=== PATIENT | male | born 1960 | race African-American/Black ===

== ENCOUNTER → 2016-04-20 | Outpatient (CLI) | payer OTHER ==
[~2016-04-20] MED LIST: ALBUAER3 INH; AMLO5 PO; CALC1TAB87 PO; CENTTAB PO; CLON.1 PO; METH125I2 IM; PRED10 PO; WARF-21 PO
--- NOTE | 2016-04-20 15:17 | RADRPT ---
EXAM DATE/TIME: 04/20/2016 14:51 [place] COMPARISON: No previous studies available for comparison. INDICATIONS : History of right leg DVT, incomplete anticoagulation therapy. MEDICAL HISTORY : Hypercholesterolemia. Hypertension. High lipid. Renal failure. SURGICAL HISTORY : Rotator cuff, left. Rotator cuff, right. Bilateral knee surgery. IVC filter. ENCOUNTER: Initial ACUITY: 1 day PAIN SCORE: 0/10 LOCATION: Right leg. TECHNIQUE: Venous ultrasound of the leg was performed from the inguinal ligament to the proximal calf. Real-gumaro e, color Doppler and spectral tracing, compression and augmentation techniques were used. FINDINGS: There is normal compressibility of the deep venous system from the inguinal region to the proximal ca lf. No echogenic clot is seen in the lumen of the common femoral, femoral, popliteal, and posterior tibial veins. There is a normal response of the venous system to proximal and distal augmentation an d respiration. CONCLUSION: Negative exam. No sonographic or Doppler findings of deep venous thrombosis. Fady Chan MD on April 20, 2016 at 15:14 Board Certified Radiologist. This report was verified electronically.
== END ==
LOC: HRAD 14:15
PROVIDERS: ATTEND Family Medicine
DX: I82.401 Acute embolism and thrombosis of unspecified deep veins of right lower extremity (principal)
CPT/HCPCS: 93971

== ENCOUNTER 2016-07-28 14:43 | Emergency (ER) | payer OTHER ==
[~2016-07-28] VITALS: Ht 182.9 cm; Wt 100.0 kg
[~2016-07-28 14:43] MED LIST changes: -METH125I2 IM
[2016-07-28 14:48] VITALS: BP 134/100; PULSE 90; RESP 24; TEMP 97.7; O2SAT 98
--- NOTE | 2016-07-28 14:52 | PD ---
Physical Exam Date Seen by Provider: Jul 28, 2016 Time Seen by Provider: 14:50 Narrative 56 yo male with history of Sarcoidosis comes here for acute SOB. Per patient worst today. Ran out of prednisone. Pain in [place] of 10/09. No injuries. Has PCP. No other medical problems at this time. Vitals sign stable. Patient awaiting bed placement. Data Data Last Documented VS Vital Signs Date Time Temp Pulse Resp B/P Pulse Ox O2 Delivery O2 Flow Rate FiO2 07/28/16 14:48 97.7 90 24 134/100 98 Room Air [facility] Medical Record Reviewed: Yes Supervised Visit with GARO: No Joseph Currie Jul 28, 2016 14:51
--- NOTE | 2016-07-28 16:44 | PD ---
HPI Chief Complaint: Respiratory Symptoms Time Seen by Provider: 16:29 Travel History International Travel<30 days: No Contact w/Intl Traveler<30days: No Traveled to known affect area: No History of Present Illness HPI 56-year-old Afro-[place] male with history of sarcoidosis and chronic lung disease secondary to it, presents to the emergency department with increased shortness of breath and wheezing since running out of his regular dose of [place] 2 days ago. Patient has a history of using prednisone 10 mg daily. He has an appointment with his regular physician on Sunday. Patient denies fever, chills, chest pain, or other constitutional symptoms. Patient has nebulizers at home which did not help that much. He has no nausea, vomiting, or other symptoms. Patient has history of MRSA. He has no known drug allergies. PFSH Past Medical History Hx Anticoagulant Therapy: No Arthritis: Yes (RHUEMATOID) Asthma: No Autoimmune Disease: No Blood Disorders: No Heart Rhythm Problems: No Cancer: No Cardiovascular Problems: Yes High Cholesterol: Yes Chemotherapy: No Chest Pain: Yes Congestive Heart Failure: No COPD: No Cerebrovascular Accident: No Diabetes: No Diminished Hearing: No Endocrine: No Gastrointestinal Disorders: No Glaucoma: No Genitourinary: No Headaches: No Hepatitis: No Hiatal Hernia: No Hypertension: Yes Immune Disorder: Yes Kidney Stones: No Musculoskeletal: No Neurologic: No Psychiatric: No Reproductive: No Respiratory: Yes (SARCOIDOSIS) Integumentary: Yes (SARCOIDOSIS-LUNGS) Migraines: No Myocardial Infarction: No Radiation Therapy: No Renal Failure: Yes (DIAGNOSED 09/09) Seizures: No Shingles: Yes Sickle Cell Disease: No Sleep Apnea: No Thyroid Disease: No Past Surgical History Abdominal Surgery: No AICD: No Arteriovenous Shunt: No Cardiac Surgery: No Ear Surgery: No Endocrine Surgery: No Eye Surgery: No Genitourinary Surgery: No Gynecologic Surgery: No Insulin Pump: No Joint Replacement: No Neurologic Surgery: Yes (LUMBAR) Oral Surgery: No Pacemaker: No Thoracic Surgery: No Other Surgery: No Social History Alcohol Use: No Tobacco Use: Yes (occ) Substance Use: Yes Allergies-Medications (Allergen,Severity, Reaction): Coded Allergies: *MDRO Multi-Drug Resistant Organism (Verified Adverse Reaction, Unknown, 03/21/16) MRSA (leg wound) - 10/2006 MRSA PCR screen positive - 10/2014 Reported Meds & Prescriptions Reported Meds & Active Scripts Active Prednisone 10 Mg Tab 10 Mg PO DAILY Proair Hfa 8.5 GM Inh (Albuterol Sulfate) 90 Mcg/Act Aer 2 Puff INH Q4-6H PRN 108 mcg/actuation Catapres (Clonidine) 0.1 Mg Tab 0.1 Mg PO DAILY Prednisone 10 Mg Tab 10 Mg PO DAILY Norvasc (Amlodipine Besylate) 5 Mg Tab 5 Mg PO BID Reported Warfarin 7.5 Mg Tab 7.5 Mg PO DAILY Calcium 600 with Vitamin D (Calcium Carbonate-Cholecalciferol) 600-400 mg-Unit Tab 1 Tab PO DAILY Centrum Silver (Multiple Vitamins W/ Minerals) 1 Tab 1 Tab PO DAILY Review of Systems Except as stated in HPI: all other systems reviewed are Neg General / Constitutional: No: Fever Eyes: No: Visual changes HENT: No: Headaches Cardiovascular: No: Chest Pain or Discomfort Respiratory: Positive: Cough, Shortness of Breath, Wheezing Gastrointestinal: No: Abdominal Pain Genitourinary: No: Dysuria Musculoskeletal: No: Pain Skin: No Rash Neurologic: No: Weakness Psychiatric: No: Depression Endocrine: No: Polydipsia Hematologic/Lymphatic: No: Easy Bruising Physical Exam Narrative GENERAL: Patient appears in mild distress. SKIN: Warm and dry. Normal color. Mildly decreased turgor. HEAD: Atraumatic. Normocephalic. EYES: Pupils equal and round. No scleral icterus. No injection or drainage. ENT: No nasal bleeding or discharge. Mucous membranes pink and moist. Pharynx is clear. Airway is clear. NECK: Trachea midline. No JVD. Supple and nontender. CARDIOVASCULAR: Regular rate and rhythm. RESPIRATORY: No accessory muscle use. Mild diffuse wheezes throughout to auscultation. No rhonchi or rales. Breath sounds equal bilaterally. GASTROINTESTINAL: Abdomen soft, non-tender, nondistended. Hepatic and splenic margins not palpable. MUSCULOSKELETAL: Extremities without clubbing, cyanosis, or edema. No obvious deformities. NEUROLOGICAL: Awake and alert. No obvious cranial nerve deficits. Motor grossly within normal limits. Five out of 5 muscle strength in the arms and legs. Normal speech. PSYCHIATRIC: Appropriate mood and affect; insight and judgment normal. Data Data Last Documented VS Vital Signs Date Time Temp Pulse Resp B/P Pulse Ox O2 Delivery O2 Flow Rate FiO2 07/28/16 14:48 97.7 90 24 134/100 98 Room Air Orders Dexamethasone Inj (Decadron Inj) (07/28/16 16:45) [facility] Medical Decision Making Medical Screen Exam Complete: Yes Emergency Medical Condition: Yes Medical Record Reviewed: Yes Differential Diagnosis Sarcoidosis. Wheezing. COPD with acute flare. Education refill. Narrative Course Patient is medically stable. Patient is discussed with Dr. George. Full medical workup is not felt warranted based on the patient's history and physical. Diagnosis Primary Impression: SARCOIDOSIS OF LUNG Additional Impression: Chronic obstructive airway disease Qualified Code: J41.0 - Simple chronic bronchitis Referrals: Leisa Davenport MD Patient Instructions: General Instructions Additional Instructions: Patient is given Decadron 10 mg IM. Patient is given a prescription for prednisone 10 mg daily for the next 10 days. Patient is to follow-up with his primary care physician on Sunday as planned. Patient is to continue his other meds as previously prescribed. Patient can return to emergency Department with worsening symptoms if necessary. Med/Other Pt SpecificInfo: Prescription(s) given Scripts Prednisone 10 Mg Tab10 Mg PO DAILY #10 TAB Ref 0 Prov:Colby George MD 07/28/16 Disposition: 01 DISCHARGE HOME Condition: Stable Ruel Jordan Jul 28, 2016 16:44
[2016-07-28] MEDS ORDERED: DEXAMETHASONE SOD PHOS 20 MG/5 ML VIAL IM ONE (16:45)
[2016-07-28] MEDS ORDERED: PRED10 PO (16:48)
[2016-07-28 16:53] VITALS: BP 140/90; PULSE 85; RESP 16; O2SAT 95
[2016-08-08] MEDS ORDERED: CLON.1 PO (15:02)
[2016-08-08] MEDS ORDERED: ALBUAER3 INH (15:02)
[2016-08-08] MEDS ORDERED: AMLO5 PO (15:02)
[2016-08-08] MEDS ORDERED: PRED10 PO (15:02)
[2016-08-08] MEDS ORDERED: METH125I2 IM (15:07)
== END 2016-07-28 17:24 | disposition home or self-care (01) ==
LOC: NEPE 14:43
DX: D86.0 Sarcoidosis of lung (principal); J44.9 Chronic obstructive pulmonary disease, unspecified; Z72.0 Tobacco use
CPT/HCPCS: 96372; 99284; J1100

== ENCOUNTER → 2016-07-31 | Outpatient (CLI) | payer OTHER ==
[~2016-07-31] MED LIST changes: +METH125I2 IM
[2016-07-31 12:40] LABS: AUTOMATED NEUTROPHIL # 4.2 TH/MM3 (1.8-7.7); BASOPHIL % 0.7 % (0.0-2.0); EOSINOPHIL # 0.3 TH/MM3 (0-0.4); HEMATOCRIT 31.8 % (39.0-51.0); HEMO FLAGS DIFF FINAL; LYMPH % 16.7 % (9.0-44.0); LYMPHOCYTE # 1.1 TH/MM3 (1.0-4.8); MEAN CORPUSCULAR HEMOGLOBIN 29.5 PG (27.0-34.0); MEAN CORPUSCULAR HGB CONC 33.9 % (32.0-36.0); MONO % 13.5 % (0.0-8.0); NEUT % 65.1 % (16.0-70.0); PLATELET COUNT 176 TH/MM3 (150-450); RED BLOOD COUNT 3.66 MIL/MM3 (4.50-5.90); RED CELL DISTRIBUTION WIDTH 15.5 % (11.6-17.2); WHITE BLOOD COUNT 6.5 TH/MM3 (4.0-11.0)
[2016-07-31 13:11] LABS: ALT (GPT) 48 U/L (12-78); ANION GAP 13 MEQ/L (5-15); AST (GOT) 125 U/L (15-37); BLOOD UREA NITROGEN 65 MG/DL (7-18); CHLORIDE 102 MEQ/L (98-107); GLOMERULAR FILTRATION RATE 7 ML/MIN (>89); GLUCOSE,FASTING 78 MG/DL (74-99); POTASSIUM 3.8 MEQ/L (3.5-5.1); SODIUM (NA) 135 MEQ/L (136-145)
[2016-07-31 13:21] LABS: ALKALINE PHOSPHATASE 122 U/L (45-117); HDL CHOLESTEROL 25.9 MG/DL (40.0-60.0); LDL CHOLESTEROL 182 MG/DL (0-99); TOTAL BILIRUBIN ADULT 1.1 MG/DL (0.2-1.0)
[2016-07-31 13:56] LABS: HEMOGLOBIN A1a 0.8 %; HEMOGLOBIN A1b 1.3 %; HEMOGLOBIN Ao 87.8 %; HEMOGLOBIN LA1C 1.9 %; HEMOGLOBIN P3 4.7 %
== END ==
LOC: CLAB 12:11
PROVIDERS: ATTEND Family Medicine
DX: F32.9 Major depressive disorder, single episode, unspecified (principal); M54.9 Dorsalgia, unspecified; I82.409 Acute embolism and thrombosis of unspecified deep veins of unspecified lower extremity; J98.4 Other disorders of lung; D86.9 Sarcoidosis, unspecified; Z91.19 Patient's noncompliance with other medical treatment and regimen; Z59.8 Other problems related to housing and economic circumstances
CPT/HCPCS: 36415; 80053; 80061; 83036; 84443; 85025

== ENCOUNTER 2016-11-05 11:46 | Emergency (ER) | payer OTHER ==
[~2016-11-05] VITALS: Ht 182.9 cm; Wt 100.0 kg
[~2016-11-05 11:46] MED LIST changes: +CENTCHW4; -CENTTAB PO; -METH125I2 IM; -WARF-21 PO
[2016-11-05 11:49] VITALS: BP 143/84; PULSE 78; RESP 15; TEMP 98.6; O2SAT 98
--- NOTE | 2016-11-05 12:37 | PD ---
HPI . was told to come to ED days ago by Dr. Davenport Chief Complaint: Abnormal Results Time Seen by Provider: 12:37 Travel History International Travel<30 days: No Contact w/Intl Traveler<30days: No Traveled to known affect area: No History of Present Illness HPI 56-year-old male with history of sarcoidosis, COPD, hyperlipidemia, chronic kidney disease and polysubstance abuse being followed at the [facility] by Dr. Davenport here after he was told by Dr. Davenport several days ago the he needs come to the emergency department for dialysis. Apparently patient is extremely noncompliant. He's had renal failure for quite some time. His last outpatient BUN and creatinine were noted to be 65/8.99. At that point patient was told to come to the emergency department, but never did. 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 During his last office visit, Dr. Davenport "scared him to ", which is why he is here for evaluation. He is accompanied by his significant other. He admits to cocaine usage. He tells me he feels good. PFSH Past Medical History Hx Anticoagulant Therapy: No Arthritis: Yes (RHUEMATOID) Asthma: No Autoimmune Disease: No Blood Disorders: No Heart Rhythm Problems: No Cancer: No Cardiovascular Problems: Yes High Cholesterol: Yes Chemotherapy: No Chest Pain: Yes Congestive Heart Failure: No COPD: No Cerebrovascular Accident: No Diabetes: No Diminished Hearing: No Endocrine: No Gastrointestinal Disorders: No Glaucoma: No Genitourinary: No Headaches: No Hepatitis: No Hiatal Hernia: No Hypertension: Yes Immune Disorder: Yes Kidney Stones: No Musculoskeletal: No Neurologic: No Psychiatric: No Reproductive: No Respiratory: Yes (SARCOIDOSIS) Integumentary: Yes (SARCOIDOSIS-LUNGS) Migraines: No Myocardial Infarction: No Radiation Therapy: No Renal Failure: Yes (DIAGNOSED 09/09) Seizures: No Shingles: Yes Sickle Cell Disease: No Sleep Apnea: No Thyroid Disease: No Past Surgical History Abdominal Surgery: No AICD: No Arteriovenous Shunt: No Cardiac Surgery: No Ear Surgery: No Endocrine Surgery: No Eye Surgery: No Genitourinary Surgery: No Gynecologic Surgery: No Insulin Pump: No Joint Replacement: No Neurologic Surgery: Yes (LUMBAR) Oral Surgery: No Pacemaker: No Thoracic Surgery: No Other Surgery: No Social History Alcohol Use: No Tobacco Use: No Substance Use: No Allergies-Medications (Allergen,Severity, Reaction): Coded Allergies: *MDRO Multi-Drug Resistant Organism (Verified Adverse Reaction, Unknown, ) MRSA (leg wound) - 10/2006 MRSA PCR screen positive - 10/2014 Reported Meds & Prescriptions Reported Meds & Active Scripts Active Proair Hfa 8.5 GM Inh (Albuterol Sulfate) 90 Mcg/Act Aer 2 Puff INH Q4-6H PRN 108 mcg/actuation Catapres (Clonidine) 0.1 Mg Tab 0.1 Mg PO DAILY Reported Centrum (Multiple Vitamins W/ Minerals) 1 Chew 1 Tab .ROUTE DAILY Calcium 600 with Vitamin D (Calcium Carbonate-Cholecalciferol) 600-400 mg-Unit Tab 1 Tab PO DAILY Review of Systems General / Constitutional: No: Fever Eyes: No: Visual changes HENT: No: Headaches Cardiovascular: No: Chest Pain or Discomfort Respiratory: No: Shortness of Breath Gastrointestinal: No: Abdominal Pain Genitourinary: No: Dysuria Musculoskeletal: No: Pain Skin: No Rash Neurologic: No: Weakness Psychiatric: No: Depression Endocrine: No: Polydipsia Hematologic/Lymphatic: No: Easy Bruising Physical Exam Narrative GENERAL: AAO x 3, no acute distress, Well-nourished, well-developed patient. SKIN: Warm and dry. dry scaling skin without open wounds or excoriations HEAD: Normocephalic and atraumatic. EYES: No scleral icterus. No injection or drainage. EOM intact, PERRLA ENT: No nasal drainage noted. Mucous membranes pink. Airway patent. NECK: Supple, trachea midline. No JVD. CARDIOVASCULAR: Regular rate and rhythm without murmurs, gallops, or rubs. RESPIRATORY: Breath sounds equal bilaterally. No accessory muscle use. No rhonchi or rales. GASTROINTESTINAL: Abdomen soft, non-tender, nondistended. no rebound or guarding EXTREMITIES: No cyanosis or edema. BACK: No obvious deformity. No CVA tenderness. NEURO: CN II-12 intact, claims assistant strength normal b/l, UE and LE 5/5, no focal deficits PSYCH: AAO x 3, normal affect. Data Data Last Documented VS Vital Signs Date Time Temp Pulse Resp B/P Pulse Ox O2 Delivery O2 Flow Rate FiO2 11/05/16 12:44 18 91 11/05/16 11:49 98.6 78 143/84 Orders Complete Blood Count With Diff (11/05/16 11:55) Basic Metabolic Panel (Bmp) (11/05/16 11:55) Prothrombin Time / Inr (Pt) (11/05/16 11:55) Electrocardiogram (11/05/16 ) Isolation (11/05/16 12:42) Labs Laboratory Tests Test 11/05/16 11/05/16 12:20 13:55 Prothrombin Time 10.8 SEC Prothromb Time International 1.0 RATIO Ratio Sodium Level 143 MEQ/L Potassium Level 4.4 MEQ/L Chloride Level 111 MEQ/L Carbon Dioxide Level 22.3 MEQ/L Anion Gap 10 MEQ/L Blood Urea Nitrogen 40 MG/DL Creatinine 2.57 MG/DL Estimat Glomerular Filtration 32 ML/MIN Rate Random Glucose 104 MG/DL Calcium Level 8.1 MG/DL White Blood Count 4.4 TH/MM3 Red Blood Count 4.01 MIL/MM3 Hemoglobin 11.8 GM/DL Hematocrit 36.4 % Mean Corpuscular Volume 90.9 FL Mean Corpuscular Hemoglobin 29.5 PG Mean Corpuscular Hemoglobin 32.4 % Concent Red Cell Distribution Width 16.0 % Platelet Count 124 TH/MM3 Mean Platelet Volume 7.8 FL Neutrophils (%) (Auto) 75.0 % Lymphocytes (%) (Auto) 11.1 % Monocytes (%) (Auto) 8.0 % Eosinophils (%) (Auto) 4.7 % Basophils (%) (Auto) 1.2 % Neutrophils # (Auto) 3.3 TH/MM3 Lymphocytes # (Auto) 0.5 TH/MM3 Monocytes # (Auto) 0.4 TH/MM3 Eosinophils # (Auto) 0.2 TH/MM3 Basophils # (Auto) 0.1 TH/MM3 CBC Comment DIFF FINAL Differential Comment MDM Medical Decision Making Medical Screen Exam Complete: Yes Emergency Medical Condition: Yes Medical Record Reviewed: Yes Differential Diagnosis CKD, cocaine abuse, noncompliance, Narrative Course 56 yr old male here per orders from his PCP due to possible renal failure. Exam is unremarkable except for dry skin. Labs ordered. Laboratory Tests Test 11/05/16 11/05/16 12:20 13:55 Prothrombin Time 10.8 SEC Prothromb Time International 1.0 RATIO Ratio Sodium Level 143 MEQ/L Potassium Level 4.4 MEQ/L Chloride Level 111 MEQ/L Carbon Dioxide Level 22.3 MEQ/L Anion Gap 10 MEQ/L Blood Urea Nitrogen 40 MG/DL Creatinine 2.57 MG/DL Estimat Glomerular Filtration 32 ML/MIN Rate Random Glucose 104 MG/DL Calcium Level 8.1 MG/DL White Blood Count 4.4 TH/MM3 Red Blood Count 4.01 MIL/MM3 Hemoglobin 11.8 GM/DL Hematocrit 36.4 % Mean Corpuscular Volume 90.9 FL Mean Corpuscular Hemoglobin 29.5 PG Mean Corpuscular Hemoglobin 32.4 % Concent Red Cell Distribution Width 16.0 % Platelet Count 124 TH/MM3 Mean Platelet Volume 7.8 FL Neutrophils (%) (Auto) 75.0 % Lymphocytes (%) (Auto) 11.1 % Monocytes (%) (Auto) 8.0 % Eosinophils (%) (Auto) 4.7 % Basophils (%) (Auto) 1.2 % Neutrophils # (Auto) 3.3 TH/MM3 Lymphocytes # (Auto) 0.5 TH/MM3 Monocytes # (Auto) 0.4 TH/MM3 Eosinophils # (Auto) 0.2 TH/MM3 Basophils # (Auto) 0.1 TH/MM3 CBC Comment DIFF FINAL Differential Comment Case discussed with Dr. arias. Patient appears to have chronic kidney disease. He does not appear to be in acute on chronic kidney failure. I've recommended that he continue follow-up with his primary care provider. I instructed him to call next week for an appointment. Patient verbalized understanding of instructions, questions were answered, and thanked me for their care. I advised them if their condition worsens, please return to the nearest emergency room for further care. Diagnosis Primary Impression: CKD (chronic kidney disease) stage 3, GFR 30-59 ml/min Additional Instructions: Please follow up with Dr. Davenport in the community clinic. Continue your regular medicines as prescribed by Dr. Davenport Med/Other Pt SpecificInfo: No Change to Meds Disposition: 01 DISCHARGE HOME Condition: Stable Jerilyn Lopez Nov 05, 2016 12:37
[2016-11-05 12:52] LABS: PROTHROMBIN TIME - PATIENT 10.8 SEC (9.8-11.6)
[2016-11-05 13:25] LABS: BICARBONATE 22.3 MEQ/L (21.0-32.0); POTASSIUM 4.4 MEQ/L (3.5-5.1)
[2016-11-05 14:13] LABS: AUTOMATED NEUTROPHIL # 3.3 TH/MM3 (1.8-7.7); BASOPHIL # 0.1 TH/MM3 (0-0.2); BASOPHIL % 1.2 % (0.0-2.0); EOSINOPHIL # 0.2 TH/MM3 (0-0.4); EOSINOPHIL % 4.7 % (0.0-4.0); HEMATOCRIT 36.4 % (39.0-51.0); HEMO FLAGS DIFF FINAL; LYMPH % 11.1 % (9.0-44.0); LYMPHOCYTE # 0.5 TH/MM3 (1.0-4.8); MEAN CELL VOLUME 90.9 FL (80.0-100.0); MEAN CORPUSCULAR HEMOGLOBIN 29.5 PG (27.0-34.0); MEAN CORPUSCULAR HGB CONC 32.4 % (32.0-36.0); PLATELET COUNT 124 TH/MM3 (150-450); RED BLOOD COUNT 4.01 MIL/MM3 (4.50-5.90); WHITE BLOOD COUNT 4.4 TH/MM3 (4.0-11.0)
[2016-11-28] MEDS ORDERED: PRED10 PO (09:42)
[2016-11-28] MEDS ORDERED: ALBUAER3 INH (14:52)
== END 2016-11-05 15:08 | disposition home or self-care (01) ==
LOC: NEPE 11:46
DX: I12.9 Hypertensive chronic kidney disease with stage 1 through stage 4 chronic kidney disease, or unspecified chronic kidney disease (principal); N18.3 Chronic kidney disease, stage 3 (moderate); Z91.19 Patient's noncompliance with other medical treatment and regimen; D86.9 Sarcoidosis, unspecified; J44.9 Chronic obstructive pulmonary disease, unspecified; E78.5 Hyperlipidemia, unspecified
CPT/HCPCS: 80048; 85025; 85610; 99283

== ENCOUNTER 2017-01-04 09:57 | Emergency (ER) | payer OTHER ==
[~2017-01-04] VITALS: Ht 182.9 cm; Wt 100.0 kg
[~2017-01-04 09:57] MED LIST changes: -AMLO5 PO
[2017-01-04 09:59] VITALS: BP 151/86; PULSE 103; RESP 16; TEMP 98.4; O2SAT 99
[2017-01-04] MEDS ORDERED: PRED10 PO (10:14)
--- NOTE | 2017-01-04 10:15 | PD ---
HPI Chief Complaint: Medication Refill Request Time Seen by Provider: 10:12 Travel History International Travel<30 days: No Contact w/Intl Traveler<30days: No Traveled to known affect area: No History of Present Illness HPI 56-year-old male, with history of sarcoidosis, presents to emergency department requesting refill on his prednisone 10 mg daily. He has been off for 3 weeks. He says without increases his cough, which has increased. Denies chest pain, shortness of breath, wheezing. Symptoms are mild in severity. Has no other medical complaints. Dr. GravesNish his primary care provider. No other modifying factors or associated signs and symptoms. PFSH Past Medical History Hx Anticoagulant Therapy: No Arthritis: Yes (RHUEMATOID) Asthma: No Autoimmune Disease: No Blood Disorders: No Heart Rhythm Problems: No Cancer: No Cardiovascular Problems: Yes High Cholesterol: Yes Chemotherapy: No Chest Pain: Yes Congestive Heart Failure: No COPD: No Cerebrovascular Accident: No Diabetes: No Diminished Hearing: No Endocrine: No Gastrointestinal Disorders: No Glaucoma: No Genitourinary: No Headaches: No Hepatitis: No Hiatal Hernia: No Hypertension: Yes Immune Disorder: Yes Kidney Stones: No Musculoskeletal: No Neurologic: No Psychiatric: No Reproductive: No Respiratory: Yes (SARCOIDOSIS) Integumentary: Yes (SARCOIDOSIS-LUNGS) Migraines: No Myocardial Infarction: No Radiation Therapy: No Renal Failure: Yes (DIAGNOSED 09/09) Seizures: No Shingles: Yes Sickle Cell Disease: No Sleep Apnea: No Thyroid Disease: No Past Surgical History Abdominal Surgery: No AICD: No Arteriovenous Shunt: No Cardiac Surgery: No Ear Surgery: No Endocrine Surgery: No Eye Surgery: No Genitourinary Surgery: No Gynecologic Surgery: No Insulin Pump: No Joint Replacement: No Neurologic Surgery: Yes (LUMBAR) Oral Surgery: No Pacemaker: No Thoracic Surgery: No Other Surgery: No Social History Alcohol Use: No Tobacco Use: No Substance Use: No Allergies-Medications (Allergen,Severity, Reaction): Coded Allergies: *MDRO Multi-Drug Resistant Organism (Verified Adverse Reaction, Unknown, 01/04/17) MRSA (leg wound) - 10/2006 MRSA PCR screen positive - 10/2014 Reported Meds & Prescriptions Reported Meds & Active Scripts Active Prednisone 10 Mg Tab 10 Mg PO DAILY Proair Hfa 8.5 GM Inh (Albuterol Sulfate) 90 Mcg/Act Aer 2 Puff INH Q4-6H PRN 108 mcg/actuation Catapres (Clonidine) 0.1 Mg Tab 0.1 Mg PO DAILY Reported Centrum (Multiple Vitamins W/ Minerals) 1 Chew 1 Tab .ROUTE DAILY Calcium 600 with Vitamin D (Calcium Carbonate-Cholecalciferol) 600-400 mg-Unit Tab 1 Tab PO DAILY Review of Systems Except as stated in HPI: all other systems reviewed are Neg Physical Exam Narrative GENERAL: Well-nourished, well-developed patient, in no acute distress SKIN: Warm and dry. HEAD: Atraumatic. Normocephalic. EYES: Pupils equal and round. No scleral icterus. No injection or drainage. ENT: Mucosa pink and moist. Airway patent. NECK: Trachea midline. CARDIOVASCULAR: Regular rate and rhythm. No murmur appreciated. RESPIRATORY: No accessory muscle use. Clear to auscultation. Breath sounds equal bilaterally. No retractions or tachypnea. GASTROINTESTINAL: Obese. MUSCULOSKELETAL: No obvious deformities. No clubbing. No cyanosis. No edema. NEUROLOGICAL: Awake and alert. Oriented 3. No obvious cranial nerve deficits. Motor grossly within normal limits. Normal speech. PSYCHIATRIC: Appropriate mood and affect; insight and judgment normal. Data Data Last Documented VS Vital Signs Date Time Temp Pulse Resp B/P (MAP) Pulse Ox O2 Delivery O2 Flow Rate FiO2 01/04/17 10:16 01/04/17 09:59 98.4 103 16 99 Orders Orders Dexamethasone Inj (Decadron Inj) (01/04/17 10:30) [facility] Medical Decision Making Medical Screen Exam Complete: Yes Emergency Medical Condition: Yes Medical Record Reviewed: Yes Differential Diagnosis Medication refill, medical clearance, cough Narrative Course 56-year-old male with history of sarcoidosis requesting prednisone refill. Patient is in no acute distress. Lungs sounds are clear and equal throughout. Oxygen saturations 99% on room air. No retractions or tachypnea. Is complaining of increased cough over the past few days. Denies chest pain or shortness of breath. Administered Decadron 10 mg IM in the ER. Patient provided information for [facility] for follow-up. Instructed patient to follow up with primary care provider. Patient verbalizes understanding and agreement with treatment plan. Patient is medically cleared and stable for discharge. Discussed reasons to return to the emergency department. Patient agrees with treatment plan. The patients vital signs are stable and the patient is stable for outpatient follow-up and treatment. Patient discharged home, stable and in no acute distress. Diagnosis Primary Impression: Medication refill Referrals: [facility] Primary Care Physician Patient Instructions: General Instructions, Medication Refill, ED Additional Instructions: Follow-up with his [facility]; the information to call and make an appointment is provided in your discharge instructions Follow-up with primary care provider Return to the emergency department immediately if worsening of symptoms Med/Other Pt SpecificInfo: Prescription(s) given Scripts Prednisone (Prednisone) 10 Mg Tab 10 MG PO DAILY, #30 TAB 0 Refills Prov: Tiffanie Mims 01/04/17 Disposition: 01 DISCHARGE HOME Condition: Stable Tiffanie Mims Jan 04, 2017 10:14
[2017-01-04] MEDS ORDERED: DEXAMETHASONE SOD PHOS 20 MG/5 ML VIAL IM ONE (10:30)
== END 2017-01-04 10:32 | disposition home or self-care (01) ==
LOC: NEPK 09:57
DX: D86.9 Sarcoidosis, unspecified (principal); Z76.0 Encounter for issue of repeat prescription
CPT/HCPCS: 99284; J1100

== ENCOUNTER 2017-03-05 10:25 | Emergency (ER) | payer SELFPAY ==
[2017-03-05 10:27] VITALS: BP 136/89; PULSE 85; RESP 18; TEMP 98.4; O2SAT 100
[2017-03-05] MEDS ORDERED: PRED10 PO (11:21)
[2017-03-05] MEDS ORDERED: VENTAER INH (11:21)
--- NOTE | 2017-03-05 11:23 | PD ---
HPI . Generalized aching Chief Complaint: Pain: Acute or Chronic Time Seen by Provider: 10:56 Travel History International Travel<30 days: No Contact w/Intl Traveler<30days: No Traveled to known affect area: No History of Present Illness HPI 56 year old male patient presents to the emergency department for evaluation of generalized aching x 2 weeks. Patient states he has a history of sarcoidosis, COPD and arthritis and has been out of his prednisone x 3 weeks. He feels like his aching is attributed to being out of his prednisone. He denies any fevers, chills, chest pain, shortness of breath, cough, nausea, vomiting, diarrhea. He denies any trauma, falls or injuries. PFSH Past Medical History Hx Anticoagulant Therapy: No Arthritis: Yes (RHUEMATOID) Asthma: No Autoimmune Disease: No Blood Disorders: No Heart Rhythm Problems: No Cancer: No Cardiovascular Problems: Yes High Cholesterol: Yes Chemotherapy: No Chest Pain: Yes Congestive Heart Failure: No COPD: No Cerebrovascular Accident: No Diabetes: No Diminished Hearing: No Endocrine: No Gastrointestinal Disorders: No Glaucoma: No Genitourinary: No Headaches: No Hepatitis: No Hiatal Hernia: No Hypertension: Yes Immune Disorder: Yes Kidney Stones: No Musculoskeletal: No Neurologic: No Psychiatric: No Reproductive: No Respiratory: Yes (SARCOIDOSIS) Integumentary: Yes (SARCOIDOSIS-LUNGS) Migraines: No Myocardial Infarction: No Radiation Therapy: No Renal Failure: Yes (DIAGNOSED 09/09) Seizures: No Shingles: Yes Sickle Cell Disease: No Sleep Apnea: No Thyroid Disease: No Past Surgical History Abdominal Surgery: No AICD: No Arteriovenous Shunt: No Cardiac Surgery: No Ear Surgery: No Endocrine Surgery: No Eye Surgery: No Genitourinary Surgery: No Gynecologic Surgery: No Insulin Pump: No Joint Replacement: No Neurologic Surgery: Yes (LUMBAR) Oral Surgery: No Pacemaker: No Thoracic Surgery: No Other Surgery: No Social History Alcohol Use: No Tobacco Use: No Substance Use: No Allergies-Medications (Allergen,Severity, Reaction): Coded Allergies: *MDRO Multi-Drug Resistant Organism (Verified Adverse Reaction, Unknown, 01/04/17) MRSA (leg wound) - 10/2006 MRSA PCR screen positive - 10/2014 Reported Meds & Prescriptions Reported Meds & Active Scripts Active Prednisone 10 Mg Tab 10 Mg PO DAILY Proair Hfa 8.5 GM Inh (Albuterol Sulfate) 90 Mcg/Act Aer 2 Puff INH Q4-6H PRN 108 mcg/actuation Catapres (Clonidine) 0.1 Mg Tab 0.1 Mg PO DAILY Reported Centrum (Multiple Vitamins W/ Minerals) 1 Chew 1 Tab .ROUTE DAILY Calcium 600 with Vitamin D (Calcium Carbonate-Cholecalciferol) 600-400 mg-Unit Tab 1 Tab PO DAILY Review of Systems Except as stated in HPI: all other systems reviewed are Neg Physical Exam Narrative GENERAL: Well-nourished, well-developed 56 year old male patient in no acute distress. Nontoxic appearing. SKIN: Focused skin assessment warm/dry. HEAD: Normocephalic. Atraumatic. NEUROLOGICAL: Awake and alert. Cranial nerves II through XII intact. Motor and sensory grossly within normal limits. Five out of 5 muscle strength in all muscle groups. Normal speech. EYES: No scleral icterus. No injection or drainage. NECK: Supple, trachea midline. No JVD or lymphadenopathy. CARDIOVASCULAR: Regular rate and rhythm without murmurs, gallops, or rubs. RESPIRATORY: Breath sounds equal bilaterally. No accessory muscle use. GASTROINTESTINAL: Abdomen soft, non-tender, nondistended. MUSCULOSKELETAL: No cyanosis, or edema. Data Data Last Documented VS Vital Signs Date Time Temp Pulse Resp B/P (MAP) Pulse Ox O2 Delivery O2 Flow Rate FiO2 03/05/17 10:27 98.4 85 18 136/89 (105) 100 MDM Medical Decision Making Medical Screen Exam Complete: Yes Emergency Medical Condition: Yes Medical Record Reviewed: Yes Differential Diagnosis Differential diagnoses include but not limited to sarcoidosis exacerbation, arthritis exacerbation, chronic pain Narrative Course 56-year-old male patient presents emergency department for evaluation of generalized aching. He attributes the generalized aching tubing out of his prednisone. Aching has been present for 2 weeks and has been out of his prednisone for 3 weeks. Patient requests prednisone prescription and albuterol inhaler. Patient will be discharged home with a prescription for prednisone and albuterol inhaler. Patient's medical record was reviewed and he will be given one week's worth of his usual prednisone dose and instructed to follow up with his primary care regarding further dosing. Diagnosis Primary Impression: Pain Referrals: Primary Care Physician Patient Instructions: Chronic Pain (ED), General Instructions Additional Instructions: Please return to emergency department if your symptoms return or worsen. Follow up with your primary care provider. Take medications as prescribed. Med/Other Pt SpecificInfo: Prescription(s) given Scripts Prednisone (Prednisone) 10 Mg Tab 10 MG PO DAILY for 7 Days, #7 TAB 0 Refills Prov: Patricia Kennedy 03/05/17 Albuterol 18 GM Inh (Ventolin Hfa 18 GM Inh) 90 Mcg/Act Aer 2 PUFF INH Q4H Y for SHORTNESS OF BREATH, #1 INHALER 0 Refills Prov: Patricia Kennedy 03/05/17 Disposition: 01 DISCHARGE HOME Condition: Stable Patricia Kennedy Mar 05, 2017 11:23
== END 2017-03-05 11:49 | disposition home or self-care (01) ==
LOC: NEPK 10:25
DX: R52 Pain, unspecified (principal); D86.9 Sarcoidosis, unspecified; J44.9 Chronic obstructive pulmonary disease, unspecified; M06.9 Rheumatoid arthritis, unspecified; E78.00 Pure hypercholesterolemia, unspecified; N19 Unspecified kidney failure; I10 Essential (primary) hypertension; Z79.899 Other long term (current) drug therapy
CPT/HCPCS: 99284

== ENCOUNTER 2017-03-16 09:19 | Emergency (ER) | payer OTHER ==
[~2017-03-16 09:19] MED LIST changes: +VENTAER INH
[2017-03-16 09:21] VITALS: BP 166/112; PULSE 96; RESP 16; TEMP 97.6; O2SAT 97
[2017-03-16] MEDS ORDERED: AMLO10 PO (09:29)
[2017-03-16] MEDS ORDERED: PRED10 PO (09:37)
[2017-03-16] MEDS ORDERED: AMLO10TA2 PO (09:38)
--- NOTE | 2017-03-16 09:42 | PD ---
HPI Chief Complaint: Medication Refill Request Time Seen by Provider: 09:29 Travel History International Travel<30 days: No Contact w/Intl Traveler<30days: No Traveled to known affect area: No History of Present Illness HPI 56-year-old male presents to emergency department requesting a refill of his prednisone and amlodipine. Patient states that he has a history of sarcoidosis and high blood pressure and has been out of his medication for several days. Patient has had increased coughing secondary to not having his prednisone. Patient is also notices blood pressures have been normal but denies any other symptoms. Denies fever, chills, chest pain, shortness breath, leg pain, headaches. Patient states that he only follows Dr. Davenport but insurance changes required him to find another primary. Patient states that he went to [email or web address] and was unable to obtain his medications because of insurance issues. Patient has no other complaints today. PFSH Past Medical History Hx Anticoagulant Therapy: No Arthritis: Yes (RHUEMATOID) Asthma: No Autoimmune Disease: No Blood Disorders: No Heart Rhythm Problems: No Cancer: No Cardiovascular Problems: Yes High Cholesterol: Yes Chemotherapy: No Chest Pain: Yes Congestive Heart Failure: No COPD: No Cerebrovascular Accident: No Diabetes: No Diminished Hearing: No Endocrine: No Gastrointestinal Disorders: No Glaucoma: No Genitourinary: No Headaches: No Hepatitis: No Hiatal Hernia: No Hypertension: Yes Immune Disorder: Yes Kidney Stones: No Musculoskeletal: No Neurologic: No Psychiatric: No Reproductive: No Respiratory: Yes (SARCOIDOSIS/copd) Integumentary: Yes (SARCOIDOSIS-LUNGS) Migraines: No Myocardial Infarction: No Radiation Therapy: No Renal Failure: Yes (DIAGNOSED 09/09) Seizures: No Shingles: Yes Sickle Cell Disease: No Sleep Apnea: No Thyroid Disease: No Tetanus Vaccination: > 5 Years Influenza Vaccination: Yes Past Surgical History Abdominal Surgery: No AICD: No Arteriovenous Shunt: No Cardiac Surgery: No Ear Surgery: No Endocrine Surgery: No Eye Surgery: No Genitourinary Surgery: No Gynecologic Surgery: No Insulin Pump: No Joint Replacement: No Neurologic Surgery: Yes (LUMBAR) Oral Surgery: No Pacemaker: No Thoracic Surgery: No Other Surgery: Yes Social History Alcohol Use: No Tobacco Use: No Substance Use: No Allergies-Medications (Allergen,Severity, Reaction): Coded Allergies: *MDRO Multi-Drug Resistant Organism (Verified Adverse Reaction, Unknown, 03/16/17) MRSA (leg wound) - 10/2006 MRSA PCR screen positive - 10/2014 Reported Meds & Prescriptions Reported Meds & Active Scripts Active Amlodipine (Amlodipine Besylate) 10 Mg Tab 10 Mg PO DAILY Prednisone 10 Mg Tab 10 Mg PO DAILY 30 Days Ventolin Hfa 18 GM Inh (Albuterol Sulfate) 90 Mcg/Act Aer 2 Puff INH Q4H PRN Prednisone 10 Mg Tab 10 Mg PO DAILY Proair Hfa 8.5 GM Inh (Albuterol Sulfate) 90 Mcg/Act Aer 2 Puff INH Q4-6H PRN 108 mcg/actuation Catapres (Clonidine) 0.1 Mg Tab 0.1 Mg PO DAILY Reported Norvasc (Amlodipine Besylate) 10 Mg Tab 10 Mg PO DAILY Review of Systems Except as stated in HPI: all other systems reviewed are Neg Physical Exam Narrative GENERAL: Well-developed well-nourished in no apparent distress, not actively coughing SKIN: Focused skin assessment warm/dry. HEAD: Atraumatic. Normocephalic. EYES: Pupils equal and round. No scleral icterus. No injection or drainage. ENT: No nasal bleeding or discharge. Mucous membranes pink and moist. NECK: Trachea midline. No JVD. CARDIOVASCULAR: Regular rate and rhythm. No murmur appreciated. RESPIRATORY: No accessory muscle use. Breath sounds equal bilaterally. Mild wheezing versus nonspecific rhonchi. GASTROINTESTINAL: Abdomen protuberant MUSCULOSKELETAL: No obvious deformities. No clubbing. No cyanosis. No edema. Homans sign negative bilateral lower extremities NEUROLOGICAL: Awake and alert. No obvious cranial nerve deficits. Motor grossly within normal limits. Normal speech. PSYCHIATRIC: Appropriate mood and affect; insight and judgment normal. Data Data Last Documented VS Vital Signs Date Time Temp Pulse Resp B/P (MAP) Pulse Ox O2 Delivery O2 Flow Rate FiO2 03/16/17 10:22 97.8 88 16 148/96 (113) 98 03/16/17 09:51 Room Air Orders Orders Methylprednisolone So Succ Inj (Solumedr (03/16/17 09:45) Methylprednisolone So Succ Inj (Solumedr (03/16/17 09:45) Ed Discharge Order (03/16/17 10:18) MDM Medical Decision Making Medical Screen Exam Complete: Yes Emergency Medical Condition: Yes Differential Diagnosis Medication refill, sarcoidosis, end-stage renal disease, COPD Narrative Course 56-year-old male presents to emergency department requesting a refill of his prednisone and amlodipine. Patient states that he has a history of sarcoidosis and high blood pressure and has been out of his medication for several days. Patient has had increased coughing secondary to not having his prednisone. Patient is also notices blood pressures have been normal but denies any other symptoms. Denies fever, chills, chest pain, shortness breath, leg pain, headaches. Patient states that he only follows Dr. Davenport but insurance changes required him to find another primary. Patient states that he went to [facility] and was unable to obtain his medications because of insurance issues. Patient has no other complaints today. Vital signs stable Physical exam unremarkable. Patient will receive 125 mg a Medrol as a loading dose. Advised patient to start his prednisone tomorrow. I will refill his prednisone and Norvasc as he appears to have a follow-up in the near future. Patient states that he had been waiting for his insurance to be able to afford his medication. Patient reassured me that he would follow up as recommended. I stressed the importance of following with a primary care physician. Patient understood and will comply. Patient will be discharged. Diagnosis Primary Impression: Medication refill Additional Impression: SARCOIDOSIS OF LUNG Referrals: [facility] Additional Instructions: Follow-up with primary care physician within 2-3 days. Take medication as prescribed. To avoid complications of your disease process, take all medications as prescribed. If your symptoms persist or worsen, return to the ER. Scripts Amlodipine (Amlodipine) 10 Mg Tab 10 MG PO DAILY for Blood Pressure Management, #30 TAB 0 Refills Prov: Roman Melton MD 03/16/17 Prednisone (Prednisone) 10 Mg Tab 10 MG PO DAILY for 30 Days, #30 TAB 0 Refills Prov: Roman Melton MD 03/16/17 Disposition: 01 DISCHARGE HOME Condition: Stable Pauline Chu Mar 16, 2017 09:42
[2017-03-16] MEDS ORDERED: methylPREDNISolone SOD SUCC 125 MG/2 ML VIAL IV PUSH ONE (09:45)
[2017-03-16] MEDS ORDERED: methylPREDNISolone SOD SUCC 125 MG/2 ML VIAL IM ONE (09:45)
[2017-03-16 09:51] VITALS: BP 148/100; PULSE 89; RESP 17; TEMP 97.8; O2SAT 98
[2017-03-16 10:22] VITALS: BP 148/96; TEMP 97.8
== END 2017-03-16 10:22 | disposition home or self-care (01) ==
LOC: NEPD 09:19
DX: Z76.0 Encounter for issue of repeat prescription (principal); D86.9 Sarcoidosis, unspecified; M06.9 Rheumatoid arthritis, unspecified; E78.00 Pure hypercholesterolemia, unspecified; J44.9 Chronic obstructive pulmonary disease, unspecified; Z79.899 Other long term (current) drug therapy
CPT/HCPCS: 96372; 99284; J2930

== ENCOUNTER 2017-05-28 11:42 | Emergency (ER) | payer SELFPAY ==
[~2017-05-28 11:42] MED LIST changes: +AMLO10 PO; +AMLO10TA2 PO; -CALC1TAB87 PO; -CENTCHW4
[2017-05-28 12:30] VITALS: BP 118/88; PULSE 88; RESP 20; TEMP 98.5; O2SAT 98
--- NOTE | 2017-05-28 13:31 | RADRPT ---
EXAM DATE/TIME: 05/28/2017 13:05 [facility] COMPARISON: No previous studies available for comparison. INDICATIONS : Left foot pain, no known injury. MEDICAL HISTORY : Hypercholesterolemia. Hypertension. High lipid. Renal failure. SURGICAL HISTORY : Rotator cuff, left. Rotator cuff, right. Bilateral knee surgery. IVC filter. ENCOUNTER: Initial ACUITY: 2 days PAIN SCORE: 10/10 LOCATION: Left middle foot FINDINGS: Three view examination of the left foot demonstrates no soft tissue swelling, dislocation, or fractur e. The tarsal bones appear intact. The interphalangeal and metatarsophalangeal joints are intact. The calcaneus is intact. Bony mineralization is normal. CONCLUSION: Negative for fracture or dislocation. Follow up in 7-10 days is suggested if symptoms persist.. Roly Reina MD FACR on May 28, 2017 at 13:30 Board Certified Radiologist. This report was verified electronically.
--- NOTE | 2017-05-28 13:34 | PD ---
HPI Chief Complaint: Injury Time Seen by Provider: 12:21 Travel History International Travel<30 days: No Contact w/Intl Traveler<30days: No Traveled to known affect area: No History of Present Illness HPI 57-year-old male presents to emergency department for evaluation of the left foot pain, acute onset yesterday. Patient has no preceding injury. He has no history of gout. No fever or chills. Pain is constant, 10 out of 10, throbbing. It is exacerbated with any ambulation or movement. PFSH Past Medical History Hx Anticoagulant Therapy: No Arthritis: Yes (RHUEMATOID) Asthma: No Autoimmune Disease: No Blood Disorders: No Heart Rhythm Problems: No Cancer: No Cardiovascular Problems: Yes High Cholesterol: Yes Chemotherapy: No Chest Pain: Yes Congestive Heart Failure: No COPD: No Cerebrovascular Accident: No Diabetes: Yes Diminished Hearing: No Endocrine: No Gastrointestinal Disorders: No Glaucoma: No Genitourinary: No Headaches: No Hepatitis: No Hiatal Hernia: No Hypertension: Yes Immune Disorder: Yes Kidney Stones: No Musculoskeletal: No Neurologic: No Psychiatric: No Reproductive: No Respiratory: Yes Integumentary: Yes (SARCOIDOSIS-LUNGS) Migraines: No Myocardial Infarction: No Radiation Therapy: No Renal Failure: Yes (DIAGNOSED 09/09) Seizures: No Shingles: Yes Sickle Cell Disease: No Sleep Apnea: No Thyroid Disease: No Past Surgical History Abdominal Surgery: No AICD: No Arteriovenous Shunt: No Cardiac Surgery: No Ear Surgery: No Endocrine Surgery: No Eye Surgery: No Genitourinary Surgery: No Gynecologic Surgery: No Insulin Pump: No Joint Replacement: No Neurologic Surgery: Yes (LUMBAR) Oral Surgery: No Pacemaker: No Thoracic Surgery: No Other Surgery: Yes Social History Alcohol Use: No Tobacco Use: No Substance Use: No Allergies-Medications (Allergen,Severity, Reaction): Coded Allergies: *MDRO Multi-Drug Resistant Organism (Verified Adverse Reaction, Unknown, 03/16/17) MRSA (leg wound) - 10/2006 MRSA PCR screen positive - 10/2014 Reported Meds & Prescriptions Reported Meds & Active Scripts Active Amlodipine (Amlodipine Besylate) 10 Mg Tab 10 Mg PO DAILY Prednisone 10 Mg Tab 10 Mg PO DAILY 30 Days Ventolin Hfa 18 GM Inh (Albuterol Sulfate) 90 Mcg/Act Aer 2 Puff INH Q4H PRN Prednisone 10 Mg Tab 10 Mg PO DAILY Proair Hfa 8.5 GM Inh (Albuterol Sulfate) 90 Mcg/Act Aer 2 Puff INH Q4-6H PRN 108 mcg/actuation Catapres (Clonidine) 0.1 Mg Tab 0.1 Mg PO DAILY Reported Norvasc (Amlodipine Besylate) 10 Mg Tab 10 Mg PO DAILY Review of Systems Except as stated in HPI: all other systems reviewed are Neg Physical Exam Narrative This is a well-nourished nontoxic-appearing male patient, in no acute distress. Left foot is mildly edematous. No obvious deformity. He is in a wheelchair. He has even respirations. He is awake and oriented. He is with clear speech. Data Data Last Documented VS Vital Signs Date Time Temp Pulse Resp B/P (MAP) Pulse Ox O2 Delivery O2 Flow Rate FiO2 05/28/17 12:30 98.5 88 20 118/88 (98) 98 Orders Orders Foot, Complete ([id number]) (05/28/17 ) [facility] Medical Decision Making Medical Screen Exam Complete: Yes Emergency Medical Condition: Yes Medical Record Reviewed: Yes Differential Diagnosis Gout versus pseudogout versus fracture versus sprain versus contusion Narrative Course 57-year-old male presents to the emergency department for evaluation of acute onset left foot pain as of yesterday. Patient is mildly edematous. X-ray imaging is ordered. Prior to results are by placement, patient chooses to leave. AMA: The risks of leaving against medical advice without further evaluation treatment were discussed with the patient. These risks include cardiac dysfunction, cardiac dysrhythmia, possible heart attack, possible stroke or . The patient indicated understanding of these risks and appeared to have the capacity to make this decision. Diagnosis Primary Impression: Left foot pain Disposition: 07 AGAINST MEDICAL ADVICE Condition: Stable Samantha Pittman MARY May 28, 2017 13:34
== END 2017-05-28 17:41 | disposition home or self-care (01) ==
LOC: NETRI 11:42
DX: M79.672 Pain in left foot (principal)
CPT/HCPCS: 73630; 99283

== ENCOUNTER 2017-07-23 12:49 | Emergency (ER) | payer SELFPAY ==
[~2017-07-23] VITALS: Ht 182.9 cm; Wt 104.5 kg
[2017-07-23 13:15] VITALS: BP 121/71; PULSE 98; RESP 20; TEMP 99.5; O2SAT 94
[2017-07-23 15:25] LABS: AUTOMATED NEUTROPHIL # 5.8 TH/MM3 (1.8-7.7); BASOPHIL % 0.3 % (0.0-2.0); EOSINOPHIL # 0.1 TH/MM3 (0-0.4); EOSINOPHIL % 1.7 % (0.0-4.0); HEMATOCRIT 33.9 % (39.0-51.0); HEMOGLOBIN 11.2 GM/DL (13.0-17.0); LYMPH % 5.5 % (9.0-44.0); LYMPHOCYTE # 0.4 TH/MM3 (1.0-4.8); MEAN CELL VOLUME 87.1 FL (80.0-100.0); MEAN CORPUSCULAR HEMOGLOBIN 28.8 PG (27.0-34.0); MEAN CORPUSCULAR HGB CONC 33.1 % (32.0-36.0); MEAN PLATELET VOLUME 7.7 FL (7.0-11.0); MONO % 14.6 % (0.0-8.0); MONOCYTE # 1.1 TH/MM3 (0-0.9); NEUT % 77.9 % (16.0-70.0); PLATELET COUNT 139 TH/MM3 (150-450); RED CELL DISTRIBUTION WIDTH 15.4 % (11.6-17.2); WHITE BLOOD COUNT 7.5 TH/MM3 (4.0-11.0)
[2017-07-23 15:35] LABS: INTERNATIONAL NORMALIZED RATIO 1.1 RATIO; PROTHROMBIN TIME - PATIENT 11.4 SEC (9.8-11.6)
[2017-07-23 15:38] LABS: ALBUMIN 3.1 GM/DL (3.4-5.0); AST (GOT) 43 U/L (15-37); BICARBONATE 24.5 MEQ/L (21.0-32.0); BLOOD UREA NITROGEN 43 MG/DL (7-18); CALCIUM 8.2 MG/DL (8.5-10.1); CHLORIDE 106 MEQ/L (98-107); CREATININE 2.97 MG/DL (0.60-1.30); GLOMERULAR FILTRATION RATE 27 ML/MIN (>89); GLUCOSE,RANDOM 89 MG/DL (74-106); SODIUM (NA) 138 MEQ/L (136-145)
[2017-07-23 15:41] LABS: ALKALINE PHOSPHATASE 197 U/L (45-117); ALT (GPT) 29 U/L (12-78); TOTAL BILIRUBIN ADULT 0.8 MG/DL (0.2-1.0)
--- NOTE | 2017-07-23 21:06 | PD ---
Physical Exam Date Seen by Provider: Jul 23, 2017 Time Seen by Provider: 16:00 Narrative 57 year old male presents to the emergency department for evaluation of low back pain. Patient states he has surgery on his lower back in either 2012 or 2013. He states it was due to an abscess on his spine. He states he is having the same pain now. Pain started yesterday. He denies any fevers. No history of IVDU per patient. Current pain is 10/10. Moderate severity. Data Data Last Documented VS Vital Signs Date Time Temp Pulse Resp B/P (MAP) Pulse Ox O2 Delivery O2 Flow Rate FiO2 07/23/17 13:15 99.5 98 20 121/71 (88) 94 Orders Orders Complete Blood Count With Diff (07/23/17 13:17) Comprehensive Metabolic Panel (07/23/17 13:17) Prothrombin Time / Inr (Pt) (07/23/17 13:17) Act Partial Throm Time (Ptt) (07/23/17 13:17) Lactic Acid Sepsis Protocol (07/23/17 13:17) Urinalysis - C+S If Indicated (07/23/17 13:17) Labs Laboratory Tests Test 07/23/17 15:02 White Blood Count 7.5 TH/MM3 Red Blood Count 3.90 MIL/MM3 Hemoglobin 11.2 GM/DL Hematocrit 33.9 % Mean Corpuscular Volume 87.1 FL Mean Corpuscular Hemoglobin 28.8 PG Mean Corpuscular Hemoglobin Concent 33.1 % Red Cell Distribution Width 15.4 % Platelet Count 139 TH/MM3 Mean Platelet Volume 7.7 FL Neutrophils (%) (Auto) 77.9 % Lymphocytes (%) (Auto) 5.5 % Monocytes (%) (Auto) 14.6 % Eosinophils (%) (Auto) 1.7 % Basophils (%) (Auto) 0.3 % Neutrophils # (Auto) 5.8 TH/MM3 Lymphocytes # (Auto) 0.4 TH/MM3 Monocytes # (Auto) 1.1 TH/MM3 Eosinophils # (Auto) 0.1 TH/MM3 Basophils # (Auto) 0.0 TH/MM3 CBC Comment DIFF FINAL Differential Comment Prothrombin Time 11.4 SEC Prothromb Time International Ratio 1.1 RATIO Activated Partial Thromboplast Time 26.0 SEC Blood Urea Nitrogen 43 MG/DL Creatinine 2.97 MG/DL Random Glucose 89 MG/DL Total Protein 8.0 GM/DL Albumin 3.1 GM/DL Calcium Level 8.2 MG/DL Alkaline Phosphatase 197 U/L Aspartate Amino Transf (AST/SGOT) 43 U/L Alanine Aminotransferase (ALT/SGPT) 29 U/L Total Bilirubin 0.8 MG/DL Sodium Level 138 MEQ/L Potassium Level 4.2 MEQ/L Chloride Level 106 MEQ/L Carbon Dioxide Level 24.5 MEQ/L Anion Gap 8 MEQ/L Estimat Glomerular Filtration Rate 27 ML/MIN Lactic Acid Level 1.6 mmol/L [facility] Supervised Visit with GARO: No Narrative Course 57 year old male presents to the emergency department for evaluation of back pain. Patient was initially seen in triage and work up was initiated. Patient left AMA before he could be moved to a medical bed. Diagnosis Primary Impression: Left against medical advice Patient Instructions: General Instructions Departure Forms: Tests/Procedures Disposition: 07 AGAINST MEDICAL ADVICE Adelita Millard Jul 23, 2017 21:06
[2017-07-24] MEDS ORDERED: HYDR-3516 PO (02:38)
[2017-07-24] MEDS ORDERED: CYCL5TAB PO (02:38)
== END 2017-07-23 16:00 | disposition left against medical advice (07) ==
LOC: NETRI 12:49
DX: M54.5 Low back pain (principal)
CPT/HCPCS: 80053; 83605; 85025; 85610; 85730; 99283

== ENCOUNTER 2017-07-23 21:50 | Emergency (ER) | payer OTHER ==
[~2017-07-23] VITALS: Ht 180.3 cm; Wt 104.1 kg
[2017-07-23 21:57] VITALS: BP 111/64; PULSE 95; RESP 18; TEMP 97.9; O2SAT 98
[2017-07-23] MEDS ORDERED: SODIUM CHLORID 0.9% 500 ML INJ 500 ML IV ONE (22:15)
--- NOTE | 2017-07-23 22:37 | PD ---
HPI Chief Complaint: Flank/Kidney Pain Time Seen by Provider: 22:07 Travel History International Travel<30 days: No Contact w/Intl Traveler<30days: No Traveled to known affect area: No History of Present Illness HPI The patient is a 57 year old male who presents to the [facility] emergency department with a history of low back pain that he reports began yesterday morning. He reports that he awoke with it. He denies doing any heavy lifting or any trauma to the area. He reports that throughout the day the pain began to move up into bilateral flanks. He reports that he is concerned about his kidneys as he does have a history of chronic renal insufficiency. He was referred to a weight checker in the past, however as he was uninsured he was unable to go to be seen. He reports that he is now insured and is followed through the [facility] for his primary care. He reports that over the last couple of years he has had intermittent urinary incontinence. He reports that he will urinate and then dribble slightly after finishing. He denies having any dysuria, hematuria, urinary urgency, or frequency. The patient reports that his back pain radiates down into the right leg. He reports that it is worse with moving or coughing. He reports having a tingling sensation in the right leg that goes all the way down to the foot. He denies having any weakness of his extremities or other numbness or tingling. He denies any IV drug use. He does however report smoking cocaine. He reports that he was trying to alleviate his pain by using cocaine and also taking hydrocodone. On review of systems otherwise, he denies having any known recent fevers, night sweats, weight loss, cough, congestion, neck pain, chest pain, shortness of breath, abdominal pain, vomiting, diarrhea, or neurologic symptoms. The patient denies having any bowel incontinence. [facility] Past Medical History Narrative Medical The patient's past medical history a history of hypertension, sarcoidosis, hyperlipidemia, chronic renal insufficiency, reactive airway, history of prior DVT, history of cocaine use. Hx Anticoagulant Therapy: No Arthritis: Yes (RHUEMATOID) Asthma: No Autoimmune Disease: No Blood Disorders: No Heart Rhythm Problems: No Cancer: No Cardiovascular Problems: Yes High Cholesterol: Yes Chemotherapy: No Chest Pain: Yes Congestive Heart Failure: No COPD: No Cerebrovascular Accident: No Diabetes: No Patient Takes Glucophage: No Diminished Hearing: No Endocrine: No Gastrointestinal Disorders: No Glaucoma: No Genitourinary: No Headaches: No Hepatitis: No Hiatal Hernia: No Hypertension: Yes Immune Disorder: Yes Kidney Stones: No Musculoskeletal: No Neurologic: No Psychiatric: No Reproductive: No Respiratory: Yes Integumentary: Yes (SARCOIDOSIS-LUNGS) Immunizations Current: Yes Migraines: No Myocardial Infarction: No Radiation Therapy: No Renal Failure: Yes (DIAGNOSED 09/09) Seizures: No Shingles: Yes Sickle Cell Disease: No Sleep Apnea: No Thyroid Disease: No Tetanus Vaccination: < 5 Years Influenza Vaccination: No Past Surgical History Narrative Surgical The patient's past surgical history is significant for bilateral knee surgery, bilateral wrist surgery, left shoulder surgery, low back surgery in 2012 or related to a spinal infection. Abdominal Surgery: No AICD: No Arteriovenous Shunt: No Cardiac Surgery: No Ear Surgery: No Endocrine Surgery: No Eye Surgery: No Genitourinary Surgery: No Gynecologic Surgery: No Insulin Pump: No Joint Replacement: No Neurologic Surgery: Yes (LUMBAR) Oral Surgery: No Pacemaker: No Thoracic Surgery: No Other Surgery: Yes Social History Alcohol Use: No Tobacco Use: Yes (1-2 cigarettes a DAY) Substance Use: Yes (Cocaine, hydrocodone) Allergies-Medications (Allergen,Severity, Reaction): Coded Allergies: *MDRO Multi-Drug Resistant Organism (Verified Adverse Reaction, Unknown, ) MRSA (leg wound) - 10/2006 MRSA PCR screen positive - 10/2014 Reported Meds & Prescriptions Reported Meds & Active Scripts Active Ventolin Hfa 18 GM Inh (Albuterol Sulfate) 90 Mcg/Act Aer 2 Puff INH Q4H PRN Prednisone 10 Mg Tab 10 Mg PO DAILY Proair Hfa 8.5 GM Inh (Albuterol Sulfate) 90 Mcg/Act Aer 2 Puff INH Q4-6H PRN 108 mcg/actuation Catapres (Clonidine) 0.1 Mg Tab 0.1 Mg PO DAILY Reported Norvasc (Amlodipine Besylate) 10 Mg Tab 10 Mg PO DAILY Review of Systems Except as stated in HPI: all other systems reviewed are Neg General / Constitutional: No: Fever, Chills Eyes: No: Visual changes HENT: No: Headaches Cardiovascular: No: Chest Pain or Discomfort, Dyspnea on exertion Respiratory: No: Cough, Shortness of Breath Gastrointestinal: No: Nausea, Vomiting, Diarrhea, Abdominal Pain, Loss of Appetite Genitourinary: No: Dysuria Musculoskeletal: Positive: Myalgias, Pain Skin: No Rash Neurologic: No: Weakness, Focal Abnormalities, Change in Mentation, Slurred Speech, Sensory Disturbance Psychiatric: No: Depression Endocrine: No: Polydipsia Hematologic/Lymphatic: No: Easy Bruising Physical Exam Narrative General: The patient is a well-developed well-nourished male in no acute distress. Head and Neck exam: Head is normocephalic atraumatic. Eyes: EOMI, pupils are equal round and reactive to light. Nose: Midline septum with pink mucous membranes Mouth: Dentition unremarkable. Moist mucus membranes. Posterior oropharynx is not erythematous. No tonsillar hypertrophy. Uvula midline. Airway patent. Neck: No palpable lymphadenopathy. No nuchal rigidity. No thyromegaly. Cardiovascular: Regular rate and rhythm without murmurs, gallops, or rubs. No pulse deficit to the extremities. Lungs: Clear to auscultation bilaterally. No wheezes, rhonchi, or rales. Abdomen: Soft, without tenderness to palpation in all 4 quadrants of the abdomen. No guarding, rebound, or rigidity. Negative [place] sign. Extremities: No clubbing, cyanosis, or edema. 2+ pulses in all 4 extremities. Back: No spinous process tenderness to palpation. No step-off or crepitus. No erythema or ecchymosis. The patient has right-sided CVA tenderness on palpation. Neurologic Exam: Cranial nerves 2-12 were intact on exam. Strength is 5/5 in all 4 extremities. No sensory deficits noted. The patient has a positive straight leg raise on the left. Skin Exam: No rash noted. Intact skin that is warm and dry. Data Data Last Documented VS Vital Signs Date Time Temp Pulse Resp B/P (MAP) Pulse Ox O2 Delivery O2 Flow Rate FiO2 07/24/17 01:00 90 Nasal Cannula 2.00 07/23/17 21:57 97.9 95 18 111/64 (80) Orders Orders Urinalysis - C+S If Indicated (07/23/17 22:10) Westergren Sedimentation Rate (07/23/17 22:10) Iv Access Insert/Monitor (07/23/17 22:10) Ecg Monitoring (07/23/17 22:10) Oximetry (07/23/17 22:10) Drug Screen, Random Urine (07/23/17 22:10) Alcohol (Ethanol) (07/23/17 22:10) Sodium Chlorid 0.9% 500 Ml Inj (Ns 500 M (07/23/17 22:15) Ct Thor Spine W/O Contrast (07/23/17 22:26) Ct Lumb Spine W/O Contrast (07/23/17 22:26) Bladder Scan PRN (07/23/17 22:27) Morphine Inj (Morphine Inj) (07/23/17 23:15) Ondansetron Inj (Zofran Inj) (07/23/17 23:15) Mri L Spine W/O Contrast (07/24/17 00:25) Sodium Chlorid 0.9% 500 Ml Inj (Ns 500 M (07/24/17 00:30) Morphine Inj (Morphine Inj) (07/24/17 00:45) Ondansetron Inj (Zofran Inj) (07/24/17 00:45) Dexamethasone Inj (Decadron Inj) (07/24/17 02:30) Labs Laboratory Tests Test 07/23/17 22:38 07/23/17 23:57 Erythrocyte Sedimentation Rate 58 mm/hr Ethyl Alcohol Level LESS THAN 3 MG/DL Urine Color LIGHT-YELLOW Urine Turbidity CLEAR Urine pH 5.0 Urine Specific [place] 1.009 Urine Protein NEG mg/dL Urine Glucose (UA) NEG mg/dL Urine Ketones NEG mg/dL Urine Occult Blood NEG Urine Nitrite NEG Urine Bilirubin NEG Urine Urobilinogen LESS THAN 2.0 MG/DL Urine Leukocyte Esterase NEG Urine WBC 1 /hpf Urine Bacteria RARE /hpf Urine Mucus FEW /lpf Microscopic Urinalysis Comment CULT NOT INDICATED Urine Opiates Screen NEG Urine Barbiturates Screen NEG Urine Amphetamines Screen NEG Urine Benzodiazepines Screen NEG Urine Cocaine Screen POS Urine Cannabinoids Screen NEG MDM Medical Decision Making Medical Screen Exam Complete: Yes Emergency Medical Condition: Yes Medical Record Reviewed: Yes Interpretation(s) Last Impressions Lumbar Spine MRI 07/24/17 0025 Signed Impressions: Service Date/Time: Monday, July 24, 2017 01:22 - CONCLUSION: 1. At L4-5 there is a grade 1 anterolisthesis and broad-based disc protrusion with facet arthropathy resulting in a focal severe central canal and lateral recess stenosis and severe left-sided foraminal stenosis. I suspect there is a left sided lateral disc extrusion impinging on the left L4 nerve root. 2. There is prominent epidural fat resulting in some effacement of the thecal sac throughout the lumbar spine. 3. No acute fracture. Conus medullaris is intact. Jack Travis MD Thoracic Spine CT 07/23/172225 Signed Impressions: Service Date/Time: Sunday, July 23, 2017 23:20 - CONCLUSION: 1. Mild degenerative disc disease in the thoracic spine. No acute fracture. No canal stenosis. Jack Travis MD Lumbar Spine CT 07/23/172225 Signed Impressions: Service Date/Time: Sunday, July 23, 2017 23:20 - CONCLUSION: 1. At L4-5 there is focal severe canal and foraminal stenosis with a grade 1 degenerative anterolisthesis. 2. Incidental note made of inferior vena cava filter. 3. No acute fracture. 4. 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 Jack Travis MD Differential Diagnosis Discitis, versus epidural abscess, versus lumbar radiculopathy, versus pyelonephritis, versus kidney stone Narrative Course During the course of the patient's emergency department visit, the patient's history, examination, and differential diagnosis were reviewed with the patient. The patient was placed on a director of cardiac rehabilitation with oximetry and frequent blood pressure monitoring. The patient had IV access obtained and blood work sent for analysis. The patient was seen earlier today in the emergency department, however after his labs were sent he left AGAINST MEDICAL ADVICE prior to being roomed in a bed as he was still on triage during initial evaluation. The laboratory studies were reviewed. The patient was initially provided normal saline at 500 mL bolus 1 The patient's laboratory studies were reviewed and remarkable for a white count of 7.5, hemoglobin 11.2, platelets 139 with neutrophils 77.9, lymphocytes 5.5, monocytes 14.6, CMP is remarkable for BUN of 43, creatinine 2.97 which is compared to previous values on November 05, 2016 and the BUN was 40, creatinine 2.57 at that time. Calcium is 8.2, AST 43, alk phos 197. Lactic acid is 1.6. PT 11.4, PTT 26. The urinalysis, sedimentation rate, urine drug screen, alcohol level have been added on to the patient's completed laboratory studies from earlier today. A CT scan of the T-spine and L-spine has also been ordered to further evaluate the patient's symptomatology. The patient's sedimentation rate was elevated at 58. Urine drug screen is positive for cocaine, alcohol level less than 3. Urinalysis shows rare bacteria otherwise unremarkable, culture not indicated Radiology studies were reviewed and remarkable for a T-spine CT that shows mild degenerative disc disease in the thoracic spine, no acute fracture, no canal stenosis. 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 Given the patient's elevated sedimentation rate and reported severe low back pain, an MRI has been ordered to evaluate for any signs of cord compression or cauda equina syndrome. An MRI of the lumbar spine revealed at L4-L5 a grade 1 anterolisthesis and broad -based disc protrusion with facet arthropathy resulting in focal severe central canal and lateral recess stenosis and severe left-sided foraminal stenosis. The radiologist also suspect that there is a left-sided lateral disc extrusion impinging on the left L4 nerve root. Prominent epidural fat resulting in some effacement of the thecal sac throughout the lumbar spine. No acute fracture, conus medullaris is intact. A call was placed out to the neurosurgeon on-call. The patient's case including history, pertinent physical examination findings , and laboratory studies were discussed with Dr. Marie. He agreed that if the patient's pain was controlled that the patient could be discharged home to follow-up as an outpatient with neurosurgery. He recommended that the patient follow-up with the neurosurgeon saw the patient previously. A review of the electronic medical record reveals that the patient was previously seen by Dr. Felipe. The patient will be given his office number and address for scheduling an appointment for follow-up. The patient will be given a copy of his MRI results. The patient will be given a dose of Decadron, and discharged home with pain medication and a muscle relaxer to be taken as needed. The patient is resting comfortably and feels better, is alert and in no distress. The patient's results and examination findings were discussed with the patient. The repeat examination is unremarkable and benign. The history, exam, diagnostic testing, and current condition do not suggest any significant pathology to warrant further testing, continued ED treatment, admission, or surgical evaluation at this point. The vital signs have been stable. The patient does not have uncontrollable pain, intractable vomiting, or other significant symptoms. The patient's condition is stable and appropriate for discharge. The patient will pursue further outpatient evaluation with a primary care physician or other designated or consulting physician as indicated in the discharge instructions. The patient expressed understanding and was agreeable with this plan. Diagnosis Primary Impression: Degenerative joint disease (DJD) of lumbar spine Qualified Codes: M47.26 - Other spondylosis with radiculopathy, lumbar region Additional Impressions: Lumbar radiculopathy Renal insufficiency Referrals: Guero Felipe MD call for appointment [facility] 2 days Distance Learning Coordinator 1 week Patient Instructions: Back Pain (ED), General Instructions, Lumbar Radiculopathy (ED) Additional Instructions: Avoid cocaine use as it will worsen your kidney function. Med/Other Pt SpecificInfo: Prescription(s) given Scripts Cyclobenzaprine (Flexeril) 5 Mg Tab 5 MG PO TID Y for SPASM, #15 TAB 0 Refills Prov: Consuelo Dowling MD 07/24/17 Hydrocodone-Acetaminophen (Hydrocodone-Acetaminophen) 5-325 mg Tab 1 TAB PO Q4-6H Y for PAIN, #16 TAB 0 Refills Prov: Consuelo Dowling MD 07/24/17 Disposition: 01 DISCHARGE HOME Condition: Stable Consuelo Dowling MD Jul 23, 2017 22:37
[2017-07-23] MEDS ORDERED: ONDANSETRON HCL 4 MG/2 ML VIAL IV PUSH ONE (23:15)
[2017-07-23] MEDS ORDERED: MORPHINE SULFATE 8 MG/ML INJ IV PUSH ONE (23:15)
--- NOTE | 2017-07-23 23:54 | RADRPT ---
EXAM DATE/TIME: 07/23/2017 23:20 [facility] COMPARISON: No previous studies available for comparison. INDICATIONS : Back pain. RADIATION DOSE: 42.89 CTDIvol (mGy) ; Combined studies - Thoracic Spine/Lumbar Spine MEDICAL HISTORY : Cardiovascular disease. Hypertension. Renal insufficiency. SURGICAL HISTORY : Lumbar surgery for spinal infection ENCOUNTER: Initial ACUITY: 1 day PAIN SCALE: 10/10 LOCATION: thoracic TECHNIQUE: Volumetric scanning of the thoracic spine was performed. Multiplanar reconstructions in the sagittal , coronal and oblique axial planes were performed. Using automated exposure control and adjustment o f the mA and/or kV according to patient size, radiation dose was kept as low as reasonably achievable to obtain optimal diagnostic quality images. DICOM format image data is available electronically f or review and comparison. FINDINGS: The vertebral bodies of the thoracic spine are in normal alignment without evidence of subluxation. Vertebral body height is maintained. No fractures are seen. T1-T2: Normal. T2-T3: The thecal sac has a normal diameter. No evidence of disc bulge or protrusion. T3-T4: The thecal sac has a normal diameter. No evidence of disc bulge or protrusion. T4-T5: The thecal sac has a normal diameter. No evidence of disc bulge or protrusion. T5-T6: The thecal sac has a normal diameter. No evidence of disc bulge or protrusion. T6-T7: The thecal sac has a normal diameter. No evidence of disc bulge or protrusion. T7-T8: The thecal sac has a normal diameter. No evidence of disc bulge or protrusion. T8-T9: The thecal sac has a normal diameter. No evidence of disc bulge or protrusion. T9-T10: The thecal sac has a normal diameter. No evidence of disc bulge or protrusion. T10-T11: The thecal sac has a normal diameter. No evidence of disc bulge or protrusion. T11-T12: The thecal sac has a normal diameter. No evidence of disc bulge or protrusion. T12-L1: The thecal sac has a normal diameter. No evidence of disc bulge or protrusion. CONCLUSION: 1. Mild degenerative disc disease in the thoracic spine. No acute fracture. No canal stenosis. Jack Travis MD on July 23, 2017 at 23:48 Board Certified Radiologist. This report was verified electronically.
--- NOTE | 2017-07-24 00:08 | RADRPT ---
EXAM DATE/TIME: 07/23/2017 23:20 [facility] COMPARISON: No previous studies available for comparison. INDICATIONS : Back pain. RADIATION DOSE: 42.89 CTDIvol (mGy) ; Combined studies - Thoracic Spine/Lumbar Spine MEDICAL HISTORY : Cardiovascular disease. Hypertension. Renal insufficiency.Substance abuse SURGICAL HISTORY : Lumbar surgery for spinal infection ENCOUNTER: Initial ACUITY: 1 day PAIN SCALE: 10/10 LOCATION: lumbar TECHNIQUE: Volumetric scanning of the lumbar spine was performed. Multiplanar reconstructions in the sagittal, coronal and oblique axial planes were performed. Using automated exposure control and adjustment of the mA and/or kV according to patient size, radiation dose was kept as low as reasonably achievable t o obtain optimal diagnostic quality images. DICOM format image data is available electronically for review and comparison. FINDINGS: No significant abnormality at K83-L7-V5. At L2-3 is a broad-based disc bulge with mild lateral recess and foraminal stenosis. At L3 through full is a broad-based disc bulge with mild lateral recess and foraminal stenosis. At L4-5 there is a degenerative grade 1 anterolisthesis the broad-based disc protrusion facet arthrop athy. There is focal severe canal and foraminal stenosis bilaterally. At L5-S1 is a disc bulge and facet arthropathy without significant canal stenosis. Mild bilateral for aminal stenosis. CONCLUSION: 1. At L4-5 there is focal severe canal and foraminal stenosis with a grade 1 degenerative anterolisth esis. 2. Incidental note made of inferior vena cava filter. 3. No acute fracture. 4. 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 Jack Travis MD on July 24, 2017 at 0:00 Board Certified Radiologist. This report was verified electronically.
[2017-07-24 00:14] LABS: BACTERIA, URINE RARE /hpf; BILIRUBIN, URINE NEG (NEG); BLOOD, URINE NEG (NEG); GLUCOSE,URINE NEG (NEG); KETONE, URINE NEG (NEG); MUCUS URINE FEW /lpf (OCC); NITRITE,URINE NEG (NEG); URINE COLOR LIGHT-YELLOW (YELLW/STRAW); URINE LEUKOCYTE ESTERASE NEG (NEG)
[2017-07-24] MEDS ORDERED: SODIUM CHLORID 0.9% 500 ML INJ 500 ML IV ONE (00:30)
[2017-07-24] MEDS ORDERED: MORPHINE SULFATE 8 MG/ML INJ IV PUSH ONE (00:45)
[2017-07-24] MEDS ORDERED: ONDANSETRON HCL 4 MG/2 ML VIAL IV PUSH ONE (00:45)
[2017-07-24 01:00] VITALS: O2SAT 90
--- NOTE | 2017-07-24 02:14 | RADRPT ---
EXAM DATE/TIME: 07/24/2017 01:22 [facility] COMPARISON: CT LUMBAR SPINE W/O CONTRAST, July 23, 2017, 23:20. INDICATIONS : Pain. Cauda equina syndrome vs cord compression. MEDICAL HISTORY : Hypertension. Hypercholesterolemia. Renal insufficiency. SURGICAL HISTORY : Total knee replacement, left. Total knee replacement, right. Bilateral wrist sx, Collar bone sx, IV C filter, Cyst removed from back. ENCOUNTER: Initial ACUITY: 1 day PAIN SCORE: 9/10 LOCATION: Left lower back and legs. TECHNIQUE: Multiplanar multisequence MRI of the lumbar spine was performed without contrast. FINDINGS: At [id number] there is no significant abnormality L2-3 there is some disc bulge and facet arthropathy with some mild lateral recess and foraminal encro achment bilaterally. At L3-4 there is prominent epidural fat and disc bulge with facet arthropathy resulting in effacement of the thecal sac and mild bilateral foraminal stenosis. L4-5 there is a broad-based posterior disc protrusion with facet arthropathy. There is a focal severe central canal and lateral recess stenosis. There is severe left-sided and moderate right-sided osmani inal stenosis. L5-S1. Prominent epidural fat effacing the thecal sac. No bony canal stenosis. Mild bilateral foramin al stenosis. CONCLUSION: 1. At L4-5 there is a grade 1 anterolisthesis and broad-based disc protrusion with facet arthropathy resulting in a focal severe central canal and lateral recess stenosis and severe left-sided foraminal stenosis. I suspect there is a left sided lateral disc extrusion impinging on the left L4 nerve root . 2. There is prominent epidural fat resulting in some effacement of the thecal sac throughout the lumb ar spine. 3. No acute fracture. Conus medullaris is intact. Jack Travis MD on July 24, 2017 at 2:07 Board Certified Radiologist. This report was verified electronically.
[2017-07-24] MEDS ORDERED: DEXAMETHASONE SOD PHOS 4 MG/ML VIAL IV PUSH ONE (02:30)
[2017-07-24] MEDS ORDERED: CYCL5TAB PO (02:38)
[2017-07-24] MEDS ORDERED: HYDR-3516 PO (02:38)
== END 2017-07-24 03:07 | disposition home or self-care (01) ==
LOC: NEPE 21:50
DX: M47.26 Other spondylosis with radiculopathy, lumbar region (principal); M51.16 Intervertebral disc disorders with radiculopathy, lumbar region; I12.9 Hypertensive chronic kidney disease with stage 1 through stage 4 chronic kidney disease, or unspecified chronic kidney disease; N18.9 Chronic kidney disease, unspecified; E78.00 Pure hypercholesterolemia, unspecified; D86.9 Sarcoidosis, unspecified; M51.34 Other intervertebral disc degeneration, thoracic region; Z86.718 Personal history of other venous thrombosis and embolism; Z72.0 Tobacco use; Z95.828 Presence of other vascular implants and grafts
CPT/HCPCS: 72128; 72131; 72148; 80307; 81001; 85652; 96361; 96374; 96375; 96376; 99285; J1100; J2270; J2405; J7040

== ENCOUNTER 2017-07-29 16:58 | Inpatient (IN) | payer OTHER ==
[~2017-07-29] VITALS: Ht 180.3 cm; Wt 112.7 kg
[~2017-07-29 16:58] MED LIST changes: -AMLO10TA2 PO; +CYCL5TAB PO; +HYDR-3516 PO
[2017-07-29 17:07] VITALS: BP 125/71; PULSE 86; RESP 22; TEMP 98; O2SAT 100
[2017-07-29 20:00] VITALS: BP 150/95; PULSE 93; RESP 20; TEMP 97.5; O2SAT 97
[2017-07-29] MEDS ORDERED: SODIUM CHLORIDE 0.9% FLUSH 10 ML FLUSH IV FLUSH PRN (20:15)
[2017-07-29] MEDS ORDERED: MORPHINE SULFATE 2 MG/ML SYRINGE IV PUSH ONE (20:15)
[2017-07-29] MEDS ORDERED: DEXAMETHASONE SOD PHOS 4 MG/ML VIAL IV PUSH ONE (20:15)
--- NOTE | 2017-07-29 20:43 | PD ---
HPI Chief Complaint: Pain: Acute or Chronic Time Seen by Provider: 19:53 Travel History International Travel<30 days: No Contact w/Intl Traveler<30days: No Traveled to known affect area: No History of Present Illness HPI 57-year-old male with history of chronic kidney disease here for evaluation of severe and worsening lower back pain. Patient was seen in the emergency department 6 days ago complaining of lower back pain that started the day before his presentation. He denies trauma. He had an MRI of his lumbar spine that shows at L4/5 there is a grade 1 anterolisthesis and b broad-based disc protrusion with facet arthropathy resulting in a focal severe central canal and lateral recess stenosis and severe left-sided foraminal stenosis, left-sided lateral disc extrusion impinging on the left L4 nerve root, prominent epidural fat resulting in some effacement of the thecal sac throughout the lumbar spine, no acute fracture, conus medullaris is intact. According to the ED note at that visit, the on-call neurosurgeon was contacted, and recommended that if the patient's pain was well-controlled that he follow-up with the neurosurgeon Dr. Felipe who has evaluated and operated on this patient in the past. Apparently the patient's pain was controlled in the emergency department and he was discharged home with a prescription for Lortab and Flexeril. He states he has run out of this medication, last dose was yesterday, however over the last week his pain has been progressively worsening. His pain is constant, moderate to severe, worse with movements. He reports it is difficult to ambulate because of the pain and he feels worsening weakness in his bilateral lower extremities with numbness to his left leg. Again he denies trauma. He does admit to using cocaine, however denies IV drug use. No urinary or bowel incontinence or retention. No fever. PFSH Past Medical History Hx Anticoagulant Therapy: No Arthritis: Yes (RHUEMATOID) Asthma: No Autoimmune Disease: No Blood Disorders: No Heart Rhythm Problems: No Cancer: No Cardiovascular Problems: Yes High Cholesterol: Yes Chemotherapy: No Chest Pain: Yes Congestive Heart Failure: No COPD: No Cerebrovascular Accident: No Diabetes: No Diminished Hearing: No Endocrine: No Gastrointestinal Disorders: No Glaucoma: No Genitourinary: No Headaches: No Hepatitis: No Hiatal Hernia: No Hypertension: Yes Immune Disorder: Yes Kidney Stones: No Musculoskeletal: No Neurologic: No Psychiatric: No Reproductive: No Respiratory: Yes Integumentary: Yes (SARCOIDOSIS-LUNGS) Immunizations Current: Yes Migraines: No Myocardial Infarction: No Radiation Therapy: No Renal Failure: Yes (DIAGNOSED 09/09) Seizures: No Shingles: Yes Sickle Cell Disease: No Sleep Apnea: No Thyroid Disease: No Tetanus Vaccination: < 5 Years Influenza Vaccination: Yes Past Surgical History Abdominal Surgery: No AICD: No Arteriovenous Shunt: No Cardiac Surgery: No Ear Surgery: No Endocrine Surgery: No Eye Surgery: No Genitourinary Surgery: No Gynecologic Surgery: No Insulin Pump: No Joint Replacement: No Neurologic Surgery: Yes (LUMBAR) Oral Surgery: No Pacemaker: No Thoracic Surgery: No Other Surgery: Yes Social History Alcohol Use: No Tobacco Use: Yes (1-2 cigarettes a DAY) Substance Use: Yes (Cocaine, hydrocodone) Allergies-Medications (Allergen,Severity, Reaction): Coded Allergies: *MDRO Multi-Drug Resistant Organism (Verified Adverse Reaction, Unknown, ) MRSA (leg wound) - 10/2006 MRSA PCR screen positive - 10/2014 Reported Meds & Prescriptions Reported Meds & Active Scripts Active Flexeril (Cyclobenzaprine HCl) 5 Mg Tab 5 Mg PO TID PRN Hydrocodone-Acetaminophen 5-325 mg Tab 1 Tab PO Q4-6H PRN Ventolin Hfa 18 GM Inh (Albuterol Sulfate) 90 Mcg/Act Aer 2 Puff INH Q4H PRN Prednisone 10 Mg Tab 10 Mg PO DAILY Proair Hfa 8.5 GM Inh (Albuterol Sulfate) 90 Mcg/Act Aer 2 Puff INH Q4-6H PRN 108 mcg/actuation Catapres (Clonidine) 0.1 Mg Tab 0.1 Mg PO DAILY Reported Norvasc (Amlodipine Besylate) 10 Mg Tab 10 Mg PO DAILY Review of Systems Except as stated in HPI: all other systems reviewed are Neg Physical Exam Narrative GENERAL: Well-developed, well-nourished, no apparent distress. SKIN: Focused skin assessment warm/dry. No rash. HEAD: Atraumatic. Normocephalic. EYES: Pupils equal and round. No scleral icterus. No injection or drainage. ENT: No nasal bleeding or discharge. Mucous membranes pink and dry. NECK: Trachea midline. No JVD. CARDIOVASCULAR: Regular rate and rhythm. RESPIRATORY: No accessory muscle use. Clear to auscultation. Breath sounds equal bilaterally. GASTROINTESTINAL: Abdomen soft, non-tender, nondistended. MUSCULOSKELETAL: No obvious deformities. No clubbing. No cyanosis. No edema. Moderate midline lumbar spine tenderness without step-off. Normal range of motion in bilateral lower extremities, however muscle strength is 4 out of 5 bilaterally. Normal strength and range of motion in bilateral upper extremities. NEUROLOGICAL: Awake and alert. No obvious cranial nerve deficits. Motor grossly within normal limits. Normal speech. No saddle anesthesia. PSYCHIATRIC: Appropriate mood and affect; insight and judgment normal. Data Data Last Documented VS Vital Signs Date Time Temp Pulse Resp B/P (MAP) Pulse Ox O2 Delivery O2 Flow Rate FiO2 07/29/17 20:45 97 Room Air 07/29/17 17:07 98.0 86 22 125/71 (89) Orders Orders Complete Blood Count With Diff (07/29/17 20:03) Comprehensive Metabolic Panel (07/29/17 20:03) Prothrombin Time / Inr (Pt) (07/29/17 20:03) Act Partial Throm Time (Ptt) (07/29/17 20:03) Iv Access Insert/Monitor (07/29/17 20:03) Ecg Monitoring (07/29/17 20:03) Oximetry (07/29/17 20:03) Sodium Chloride 0.9% Flush (Ns Flush) (07/29/17 20:15) Morphine Inj (Morphine Inj) (07/29/17 20:15) Dexamethasone Inj (Decadron Inj) (07/29/17 20:15) Creatine Kinase (Cpk) (07/29/17 20:23) Sodium Chlor 0.9% 1000 Ml Inj (Ns 1000 M (07/29/17 21:45) Urinalysis - C+S If Indicated (07/29/17 21:56) Chest, Single Ap (07/29/17 ) Ct Abd/Pel W/O Iv Contrast (07/29/17 ) Cath For Specimen (07/29/17 22:25) Mri L Spine W/O Contrast (07/29/17 ) Blood Culture (07/29/17 22:55) Ceftriaxone Inj (Rocephin Inj) (07/29/17 23:00) Vancomycin Inj (Vancomycin Inj) (07/29/17 23:00) Consult Infectious Disease (07/29/17 ) Consult Vascular Surgery (07/29/17 ) Echo 2d Comp With Doppler (07/29/17 ) Consult Neurosurgery (07/29/17 ) Vancomycin Consult Pharmacy (Vancomycin (07/29/17 23:15) Cefepime Inj (Maxipime Inj) (07/30/17 09:00) Drug Screen, Random Urine (07/29/17 23:01) Admit To Inpatient (07/29/17 ) Vital Signs (Adult) Q4H (07/29/17 23:01) Activity Oob Ad Dominique (07/29/17 23:01) Intake + Output MARISA.QSHIFT (07/29/17 23:01) Diet Regular Basic (07/30/17 Breakfast) Sodium Chlor 0.9% 1000 Ml Inj (Ns 1000 M (07/29/17 23:01) Sodium Chloride 0.9% Flush (Ns Flush) (07/29/17 23:15) Sodium Chloride 0.9% Flush (Ns Flush) (07/30/17 09:00) Ondansetron Inj (Zofran Inj) (07/29/17 23:15) Comprehensive Metabolic Panel (07/30/17 06:00) Complete Blood Count With Diff (07/30/17 06:00) Case Management Consult (07/29/17 23:01) Scd Bilateral/Knee High MARISA.BID (07/29/17 23:01) James Bilateral/Knee High MARISA.QSHIFT (07/29/17 23:05) Acetaminophen (Tylenol) (07/29/17 23:15) Morphine Inj (Morphine Inj) (07/29/17 23:15) Oxycodone (Roxicodone) (07/29/17 23:15) Docusate Sodium-Senna (Emilie-Colace) (07/30/17 09:00) Magnesium Hydroxide Liq (Milk Of Magnesi (07/29/17 23:15) Sennosides (Senokot) (07/29/17 23:15) Bisacodyl Supp (Dulcolax Supp) (07/29/17 23:15) Lactulose Liq (Lactulose Liq) (07/29/17 23:15) Inpatient Certification (07/29/17 ) Admit Order (Ed Use Only) (07/29/17 23:10) Labs Laboratory Tests Test 07/29/17 20:40 07/29/17 22:52 White Blood Count 20.8 TH/MM3 Red Blood Count 4.32 MIL/MM3 Hemoglobin 12.5 GM/DL Hematocrit 37.5 % Mean Corpuscular Volume 87.0 FL Mean Corpuscular Hemoglobin 28.9 PG Mean Corpuscular Hemoglobin Concent 33.2 % Red Cell Distribution Width 15.7 % Platelet Count 223 TH/MM3 Mean Platelet Volume 7.6 FL Neutrophils (%) (Auto) 89.0 % Lymphocytes (%) (Auto) 1.8 % Monocytes (%) (Auto) 8.7 % Eosinophils (%) (Auto) 0.4 % Basophils (%) (Auto) 0.1 % Neutrophils # (Auto) 18.5 TH/MM3 Lymphocytes # (Auto) 0.4 TH/MM3 Monocytes # (Auto) 1.8 TH/MM3 Eosinophils # (Auto) 0.1 TH/MM3 Basophils # (Auto) 0.0 TH/MM3 CBC Comment DIFF FINAL Differential Comment Prothrombin Time 11.4 SEC Prothromb Time International Ratio 1.1 RATIO Activated Partial Thromboplast Time 30.8 SEC Blood Urea Nitrogen 56 MG/DL Creatinine 2.84 MG/DL Random Glucose 73 MG/DL Total Protein 9.2 GM/DL Albumin 2.7 GM/DL Calcium Level 9.4 MG/DL Alkaline Phosphatase 197 U/L Aspartate Amino Transf (AST/SGOT) 63 U/L Alanine Aminotransferase (ALT/SGPT) 24 U/L Total Bilirubin 2.0 MG/DL Sodium Level 128 MEQ/L Potassium Level 5.5 MEQ/L Chloride Level 96 MEQ/L Carbon Dioxide Level 19.7 MEQ/L Anion Gap 12 MEQ/L Estimat Glomerular Filtration Rate 28 ML/MIN Total Creatine Kinase 167 U/L Urine Color YELLOW Urine Turbidity HAZY Urine pH 5.5 Urine Specific [place] 1.014 Urine Protein TRACE mg/dL Urine Glucose (UA) NEG mg/dL Urine Ketones TRACE mg/dL Urine Occult Blood NEG Urine Nitrite NEG Urine Bilirubin NEG Urine Urobilinogen 4.0 MG/DL Urine Leukocyte Esterase NEG Urine RBC LESS THAN 1 /hpf Urine WBC 1 /hpf Urine Squamous Epithelial Cells <1 /hpf Urine Amorphous Sediment RARE Urine Bacteria RARE /hpf Urine Hyaline Casts 7 /lpf Urine Granular Casts 2 /lpf Urine Mucus FEW /lpf Microscopic Urinalysis Comment CULT NOT INDICATED MDM Medical Decision Making Medical Screen Exam Complete: Yes Emergency Medical Condition: Yes Differential Diagnosis Acute on chronic low back pain, spinal stenosis, spinal cord compression Narrative Course Vital signs show heart rate 86, blood pressure 125/71, pulse ox 100% on room air , oral temperature 98F. CBC: WBC 20.8, hemoglobin 12.5, hematocrit 37.5, platelets 223, neutrophils 89% CMP is remarkable for sodium 128, potassium 5.5, chloride 96, bicarb 19.7, BUN 56, creatinine 2.84, GFR 28 Total CK is 167. Patient has a slight leukocytosis. He was given a dose of Decadron about a week ago. He is afebrile. He does have slight lower abdominal tenderness. Chest x-ray, CT abdomen pelvis, and UA will be ordered to look for possible infectious source causing his leukocytosis. CT abdomen pelvis: CONCLUSION: 1. Significant new prevertebral soft tissue fullness and stranding centered at the L5 level. There is associated sclerosis and erosive changes in the anterior L5 vertebral body which appear unchanged from recent exams. Overall, findings are concerning for discitis and osteomyelitis. Consider repeat MRI examination for further evaluation. 2. 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 However, evaluation is significantly limited due to lack of IV contrast on this exam. This was not present on remote prior CT exam. A mycotic aneurysm cannot be entirely excluded. Contrast enhanced examination would be greatly beneficial in further evaluation. 3. Nodular appearing liver contour consistent with cirrhosis. 4. IVC filter in place. 5. Cholelithiasis. I was called by reading radiologist Dr. Jones who informed me of the CT results. The patient will be started on IV Rocephin and IV vancomycin. He adamantly denies IV drug abuse, stating that he only smokes crack/cocaine. Patient does have mild 4 out of 5 weakness in his bilateral lower extremities. There are no focal deficits. No saddle anesthesia. No urinary or bowel incontinence or retention. MRI of the L-spine will be ordered to evaluate for possible osteomyelitis. Because of the patient's chronic kidney disease with a creatinine of 2.84, this will have to be done without contrast. Case discussed with hospitalist Dr. Smith who will admit the patient to the hospitalist service and will place routine consult for neurosurgery as well as vascular surgery. The patient was made aware of all findings and plan. Diagnosis Primary Impression: Sepsis Qualified Codes: A41.9 - Sepsis, unspecified organism Additional Impressions: Lumbar discitis Intractable back pain Chronic kidney disease Qualified Codes: N18.9 - Chronic kidney disease, unspecified Hyperkalemia Iliac artery aneurysm, left Admitting Information Admitting Physician Requests: Admit Manolo Thomas MD Jul 29, 2017 20:43
[2017-07-29 20:45] VITALS: O2SAT 97
[2017-07-29 21:35] LABS: ALBUMIN 2.7 GM/DL (3.4-5.0); AST (GOT) 63 U/L (15-37); BICARBONATE 19.7 MEQ/L (21.0-32.0); BLOOD UREA NITROGEN 56 MG/DL (7-18); CALCIUM 9.4 MG/DL (8.5-10.1); CHLORIDE 96 MEQ/L (98-107); CREATININE 2.84 MG/DL (0.60-1.30); GLOMERULAR FILTRATION RATE 28 ML/MIN (>89); GLUCOSE,RANDOM 73 MG/DL (74-106); SODIUM (NA) 128 MEQ/L (136-145)
[2017-07-29 21:39] LABS: ALKALINE PHOSPHATASE 197 U/L (45-117); ALT (GPT) 24 U/L (12-78); TOTAL PROTEIN 9.2 GM/DL (6.4-8.2)
[2017-07-29 21:42] LABS: AUTOMATED NEUTROPHIL # 18.5 TH/MM3 (1.8-7.7); BASOPHIL % 0.1 % (0.0-2.0); EOSINOPHIL # 0.1 TH/MM3 (0-0.4); EOSINOPHIL % 0.4 % (0.0-4.0); HEMATOCRIT 37.5 % (39.0-51.0); HEMOGLOBIN 12.5 GM/DL (13.0-17.0); LYMPH % 1.8 % (9.0-44.0); LYMPHOCYTE # 0.4 TH/MM3 (1.0-4.8); MEAN CORPUSCULAR HEMOGLOBIN 28.9 PG (27.0-34.0); MEAN CORPUSCULAR HGB CONC 33.2 % (32.0-36.0); MEAN PLATELET VOLUME 7.6 FL (7.0-11.0); MONO % 8.7 % (0.0-8.0); MONOCYTE # 1.8 TH/MM3 (0-0.9); PLATELET COUNT 223 TH/MM3 (150-450); RED BLOOD COUNT 4.32 MIL/MM3 (4.50-5.90); RED CELL DISTRIBUTION WIDTH 15.7 % (11.6-17.2); WHITE BLOOD COUNT 20.8 TH/MM3 (4.0-11.0)
[2017-07-29] MEDS ORDERED: SODIUM CHLOR 0.9% 1000 ML INJ 1,000 ML IV ONE (21:45)
[2017-07-29 21:51] LABS: INTERNATIONAL NORMALIZED RATIO 1.1 RATIO; PROTHROMBIN TIME - PATIENT 11.4 SEC (9.8-11.6)
--- NOTE | 2017-07-29 22:44 | RADRPT ---
EXAM DATE/TIME: 07/29/2017 22:14 [facility] COMPARISON: CT LUMBAR SPINE W/O CONTRAST, July 23, 2017, 23:20. MRI LUMBAR SPINE W/O CONTRAST, July 24, 2017, 1:22. CT ABDOMEN & PELVIS W/O CONTRAST, November 26, 2014, 22:33. INDICATIONS : Abdomen pain. ORAL CONTRAST: No oral contrast ingested. RADIATION DOSE: 10.69 CTDIvol (mGy) MEDICAL HISTORY : Hypertension. Renal insufficiency. Hypercholesterolemia. SURGICAL HISTORY : Total knee replacement, left. Total knee replacement, right.IVC filter ENCOUNTER: Initial ACUITY: 1 day PAIN SCALE: 8/10 LOCATION: Bilateral abdomen TECHNIQUE: Volumetric scanning of the abdomen and pelvis was performed. Using automated exposure control and ad justment of the mA and/or kV according to patient size, radiation dose was kept as low as reasonably achievable to obtain optimal diagnostic quality images. DICOM format image data is available electro nically for review and comparison. FINDINGS: LOWER LUNGS: Focal atelectasis at the left lung base. LIVER: Nodular contour of the liver without intrapelvic ductal dilatation. Gallbladder is moderately distend ed with probable small stones near the gallbladder neck. SPLEEN: Normal size without lesion. PANCREAS: Within normal limits. KIDNEYS: Slightly asymmetric but stable appearing kidneys with a smaller left kidney. No hydronephrosis or rad iopaque renal calculi. ADRENAL GLANDS: Within normal limits. VASCULAR: There is an IVC filter in place. Aorta is grossly a non-aneurysmal. Suspect a 2.9 cm aneurysm, likely of the right internal iliac artery. BOWEL/MESENTERY: The stomach, small bowel, and colon demonstrate no acute abnormality. There is no free intraperitone al air or fluid. ABDOMINAL WALL: Within normal limits. BLADDER: No wall thickening or mass. REPRODUCTIVE: Within normal limits. INGUINAL: There is no lymphadenopathy or hernia. MUSCULOSKELETAL: There is significant prevertebral soft tissue fullness and stranding centered at L5 level. Recently, CT and MRI examinations have demonstrated primarily disc disease with similar anterior superior endpl ate sclerosis and erosive change. However, the stranding and soft tissue fullness is primarily a new finding. CONCLUSION: 1. Significant new prevertebral soft tissue fullness and stranding centered at the L5 level. There is associated sclerosis and erosive changes in the anterior L5 vertebral body which appear unchanged fr om recent exams. Overall, findings are concerning for discitis and osteomyelitis. Consider repeat MRI examination for further evaluation. 2. 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 However, evaluation is significantly limited due to lack of IV contrast on this exam. This was not present on remote [place] or CT exam. A mycotic aneurysm cannot be entirely excluded. Contrast enhanced examination would be gr eatly beneficial in further evaluation. 3. Nodular appearing liver contour consistent with cirrhosis. 4. IVC filter in place. 5. Cholelithiasis. Tanner Jones MD on July 29, 2017 at 22:25 Board Certified Radiologist. This report was verified electronically.
--- NOTE | 2017-07-29 22:45 | RADRPT ---
EXAM DATE/TIME: 07/29/2017 22:25 [facility] COMPARISON: CHEST SINGLE AP, January 19, 2014, 23:00. INDICATIONS : Cough. MEDICAL HISTORY : Hypertension. Hypercholesterolemia. Renal insufficiency. SURGICAL HISTORY : Total knee replacement, left. Total knee replacement, right. IVC Filter placement. ENCOUNTER: Initial ACUITY: 1 day PAIN SCORE: 0/10 LOCATION: Bilateral chest FINDINGS: No significant focal pleural or parenchymal opacities. Cardiomediastinal contours are within normal l imits given technique. Bony thorax is intact. CONCLUSION: 1. No acute cardiopulmonary disease. Tanner Jones MD on July 29, 2017 at 22:42 Board Certified Radiologist. This report was verified electronically.
[2017-07-29] MEDS ORDERED: VANCOMYCIN INJ 1,000 MG in SODIUM CHLOR 0.9% 250 ML INJ 250 ML IV ONE (23:00)
[2017-07-29] MEDS ORDERED: cefTRIAXone INJ 2,000 MG in SODIUM CHLORIDE 0.9% INJ 100 ML IV ONE (23:00)
--- NOTE | 2017-07-29 23:06 | HHI.HP ---
[facility] Unknown Admission Diagnosis Diagnoses: (1) Osteomyelitis Diagnosis: Principal (2) Mycotic aneurysm Diagnosis: Principal (3) Cocaine abuse Diagnosis: Principal (4) Hyperkalemia Diagnosis: Principal (5) CKD (chronic kidney disease) stage 3, GFR 30-59 ml/min Diagnosis: Principal (6) Hyponatremia Diagnosis: Principal Travel History International Travel<30 Days: No Contact w/Intl Traveler <30 Da: No Traveled to Known Affected Are: No History of Present Illness This is a 57-year-old male with a PMH of Rheumatoid Arthritis, HTN, Hyperlipidemia, CKD Stage III, Chronic Back Pain, Cocaine Abuse and Tobacco Abuse who presented to the ER w/ complaints of severe back pain. Pt is very poor historian, unable to provide much information or to quantify pain complaints. States symptoms have been going on for "long time". Recent ER presentation 07/23/17 for similar complaints, MRI L-Spine w/ broad based disc protrusion with facet arthropathy resulting in focal severe central canal and recess stenosis at L4-L5, NxSx consulted at that time w/ recommendation for outpatient follow up w/ Dr. Felipe w/ whom he's seen in the past. Upon further questioning, pt states he had a "blood infection in my spine" in 2012 and underwent surgical intervention. On arrival, BP 125/71, HR 86, O2 sat 100% RA, Afebrile. WBC 20.8. Na 128. K+ 5.5. Creatinine 2.84, previously 2.97 on 07/23. INR 1.1. UA negative for UTI. CT Abdomen/Pelvis with significant new prevertebral soft tissue fullness at L5, concerning for discitis and osteomyelitis, redemonstrated 2.9 cm aneurysm at right internal iliac artery possibly mycotic aneurysm. S/p Vanc/Rocephin in ER. Review of Systems Except as stated in HPI: all other systems reviewed are Neg ROS: 14 point review of systems otherwise negative. Past Family Social History Past Medical History PMH: Rheumatoid Arthritis, HTN, Hyperlipidemia, CKD Stage III, Chronic Back Pain, Cocaine Abuse and Tobacco Abuse Past Surgical History PAST SURGICAL HISTORY: Lumbar Surgery Allergies: Coded Allergies: *MDRO Multi-Drug Resistant Organism (Verified Adverse Reaction, Unknown, ) MRSA (leg wound) - 10/2006 MRSA PCR screen positive - 10/2014 Family History PAST FAMILY HISTORY: Reviewed. No h/o DM or CAD Social History PAST SOCIAL HISTORY: Negative for alcohol. Positive for tobacco and Cocaine. Denies IVDU. Physical Exam Vital Signs Vital Signs Date Time Temp Pulse Resp B/P (MAP) Pulse Ox O2 Delivery O2 Flow Rate FiO2 07/29/17 20:45 97 Room Air 07/29/17 17:07 98.0 86 22 125/71 (52) 100 Physical Exam PE: GENERAL: Middle-aged black male in no acute distress. HEENT: PERRLA, EOMI. No scleral icterus or conjunctival pallor. No lid lag or facial droop. CARDIOVASCULAR: Regular rate and rhythm. No obvious murmurs to auscultation. No chest tenderness to palpation. RESPIRATORY: No obvious rhonchi or wheezing. Clear to auscultation. Breath sounds equal bilaterally. GASTROINTESTINAL: Abdomen soft, non-tender, nondistended. BS normal. MUSCULOSKELETAL: Extremities without clubbing, cyanosis, or edema. No obvious deformities. NEUROLOGICAL: Awake, alert and oriented x4. No focal neurologic deficits. Moving both upper and lower extremities spontaneously. Laboratory Laboratory Tests Test 07/29/17 20:40 07/29/17 22:52 White Blood Count 20.8 Red Blood Count 4.32 Hemoglobin 12.5 Hematocrit 37.5 Mean Corpuscular Volume 87.0 Mean Corpuscular Hemoglobin 28.9 Mean Corpuscular Hemoglobin Concent 33.2 Red Cell Distribution Width 15.7 Platelet Count 223 Mean Platelet Volume 7.6 Neutrophils (%) (Auto) 89.0 Lymphocytes (%) (Auto) 1.8 Monocytes (%) (Auto) 8.7 Eosinophils (%) (Auto) 0.4 Basophils (%) (Auto) 0.1 Neutrophils # (Auto) 18.5 Lymphocytes # (Auto) 0.4 Monocytes # (Auto) 1.8 Eosinophils # (Auto) 0.1 Basophils # (Auto) 0.0 CBC Comment DIFF FINAL Differential Comment Prothrombin Time 11.4 Prothromb Time International Ratio 1.1 Activated Partial Thromboplast Time 30.8 Blood Urea Nitrogen 56 Creatinine 2.84 Random Glucose 73 Total Protein 9.2 Albumin 2.7 Calcium Level 9.4 Alkaline Phosphatase 197 Aspartate Amino Transf (AST/SGOT) 63 Alanine Aminotransferase (ALT/SGPT) 24 Total Bilirubin 2.0 Sodium Level 128 Potassium Level 5.5 Chloride Level 96 Carbon Dioxide Level 19.7 Anion Gap 12 Estimat Glomerular Filtration Rate 28 Total Creatine Kinase 167 Result Diagram: 07/29/17203907/29/172039 Caprini VTE Risk Assessment Caprini VTE Risk Assessment: No/Low Risk (score <= 1) Caprini Risk Assessment Model Point Value = 1 Point Value = 2 Point Value = 3 Point Value = 5 Age 41-60 Minor surgery BMI > 25 kg/m2 Swollen legs Varicose veins or History of unexplained or recurrent spontaneous Oral contraceptives or hormone replacement Sepsis (< 1 month) Serious lung disease, including pneumonia (< 1 month) Abnormal pulmonary function Acute myocardial infarction Congestive heart failure (< 1 month) History of inflammatory bowel disease Medical patient at bed rest Age 61-74 Arthroscopic surgery Major open surgery (> 45 min) Laparoscopic surgery (> 45 min) Malignancy Confined to bed (> 72 hours) Immobilizing plaster cast Central venous access Age >= 75 History of VTE Family history of VTE Factor V Leiden Prothrombin [id number] Lupus anticoagulant Anticardiolipin antibodies Elevated serum homocysteine Heparin-induced thrombocytopenia Other congenital or acquired thrombophilia Stroke (< 1 month) Elective arthroplasty Hip, pelvis, or leg fracture Acute spinal cord injury (< 1 month) Prophylaxis Regimen Total Risk Factor Score Risk Level Prophylaxis Regimen 0-1 Low Early ambulation 2 Moderate Order ONE of the following: *Sequential Compression Device (SCD) *Heparin 5000 units SQ BID 3-4 Higher Order ONE of the following medications: *Heparin 5000 units SQ TID *Enoxaparin/Lovenox 40 mg SQ daily (WT < 150 kg, CrCl > 30 mL/min) *Enoxaparin/Lovenox 30 mg SQ daily (WT < 150 kg, CrCl > 10-29 mL/min) *Enoxaparin/Lovenox 30 mg SQ BID (WT < 150 kg, CrCl > 30 mL/min) AND/OR *Sequential Compression Device (SCD) 5 or more Highest Order ONE of the following medications: *Heparin 5000 units SQ TID (Preferred with Epidurals) *Enoxaparin/Lovenox 40 mg SQ daily (WT < 150 kg, CrCl > 30 mL/min) *Enoxaparin/Lovenox 30 mg SQ daily (WT < 150 kg, CrCl > 10-29 mL/min) *Enoxaparin/Lovenox 30 mg SQ BID (WT < 150 kg, CrCl > 30 mL/min) AND *Sequential Compression Device (SCD) Assessment and Plan Problem List: (1) Osteomyelitis ICD Code: M86.9 - Osteomyelitis, unspecified (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 - Aneurysm of unspecified site (3) Cocaine abuse ICD Code: F14.10 - Cocaine abuse, uncomplicated (4) Hyperkalemia ICD Code: E87.5 - Hyperkalemia (5) Hyponatremia ICD Code: E87.1 - Hypo-osmolality and hyponatremia (6) CKD (chronic kidney disease) stage 3, GFR 30-59 ml/min ICD Code: N18.3 - Chronic kidney disease, stage 3 (moderate) Assessment and Plan A/P: 1. Osteomyelitis: Discitis, c/o chronic back pain and weakness, seen in ER on 07/23/17 for similar complaints, now w/ worsening symptoms in addition to abdominal pain, CT Abd/Pelvis w/ significant new prevertebral soft tissue fullness at L5 concerning for discitis/osteomyelitis, images reviewed by me. MRI L-Spine pending, will follow up. Consult NxSx for further evaluation/ intervention. S/p Vanc/Rocephin in ER, will continue w/ IV Abx. Afebrile, WBC 20 2. Mycotic Aneurysm: CT Abd/Pelvis w/ 2.9cm mycotic aneurysm right internal iliac artery, pt vehemently denies IVDU. Check Echo to eval for possible endocarditis, Check Blood Cultures, Consult Vascular Sx/ID for further evaluation/recommendations. Continue w/ IV Abx. 3. Cocaine Abuse: Admits to smoking crack, denies IVDU, Urine Drug Screen pending, Ativan prn for withdrawal 4. Hyponatremia: Na 128, Check U/a to eval for underlying UTI, IVF for hydration, repeat labs in am. 5. Hyperkalemia: K+ 5.5, will recheck after IVF 6. CKD: Stage III, Creatinine 2.84, previously 2.97, pt counselled against using cocaine to avoid worsening renal function. Repeat labs in am, dose antibiotics accordingly. 7. DVT Prophylaxis: SCD/Teds 8. Social work for d/c planning as needed. 9. Case discussed w/ ER physician at length, labs/records/imaging reviewed by me. Physician Certification 2 Midnight Certification Type: Admission for Inpatient Services Order for Inpatient Services The services are ordered in accordance with Medicare regulations or non- Medicare payer requirements, as applicable. In the case of services not specified as inpatient-only, they are appropriately provided as inpatient services in accordance with the 2-midnight benchmark. Estimated LOS (days): 2 days is the estimated time the patient will need to remain in the hospital, assuming treatment plan goals are met and no additional complications. Post-Hospital Plan: Not yet determined Pamela Smith MD Jul 29, 2017 23:06
[2017-07-29 23:09] LABS: AMORPHOUS SEDIMENT, URINE RARE; BACTERIA, URINE RARE /hpf; BILIRUBIN, URINE NEG (NEG); BLOOD, URINE NEG (NEG); GLUCOSE,URINE NEG (NEG); HYALINE CAST, URINE 7 /lpf (RARE); KETONE, URINE TRACE mg/dL (NEG); MUCUS URINE FEW /lpf (OCC); NITRITE,URINE NEG (NEG); PH, URINE 5.5 (5.0-8.5); SQUAMOUS EPITHELIAL CELL URINE <1 /hpf (0-5); URINE COLOR YELLOW (YELLW/STRAW); URINE LEUKOCYTE ESTERASE NEG (NEG)
[2017-07-29] MEDS ORDERED: Vancomycin Consult Pharmacy 1 EA OTHER SCH (23:15)
[2017-07-29] MEDS ORDERED: SENNOSIDES 8.6 MG TAB PO PRN (23:15)
[2017-07-29] MEDS ORDERED: BISACODYL 10 MG SUPP RECTAL PRN (23:15)
[2017-07-29] MEDS ORDERED: MORPHINE SULFATE 2 MG/ML SYRINGE IV PUSH PRN (23:15)
[2017-07-29] MEDS ORDERED: ONDANSETRON HCL 4 MG/2 ML VIAL IVP PRN (23:15)
[2017-07-29] MEDS ORDERED: MAGNESIUM HYDROXIDE SUSP 30 ML CUP PO PRN (23:15)
[2017-07-30] VITALS (9 sets, daily range): BP systolic 118–157; BP diastolic 74–95; PULSE 70–89; RESP 18–22; TEMP 97.6–98.2; O2SAT 95–99
[2017-07-30] MEDS ORDERED: VANCOMYCIN 1 GM/200 ML PREMIX IV ONE
--- NOTE | 2017-07-30 00:57 | RADRPT ---
EXAM DATE/TIME: 07/30/2017 00:12 [place] COMPARISON: CT ABDOMEN & PELVIS W/O CONTRAST, July 29, 2017, 22:14. MRI LUMBAR SPINE W/O CONTRAST, July 24 18, 1:22. INDICATIONS : Osteomyelitis. Back pain. MEDICAL HISTORY : Rheumatoid arthritis. Hypertension. Renal failure, chronic. SURGICAL HISTORY : Rotator cuff, left. Bilateral knee surgery. Lumbar surgery. Bilateral wrist surgery. ENCOUNTER: Subsequent ACUITY: 1 week PAIN SCORE: 6/10 LOCATION: low back. TECHNIQUE: Multiplanar multisequence MRI of the lumbar spine was performed without contrast. FINDINGS: The most caudal appearing lumbar vertebra is numbered as L5. Sagittal T1, T2 and inversion recovery images showing minimal grade 1 anterolisthesis of L4 on 5. In addition, abnormally increased T2 signal intensity is identified anterior to the L4-5 disc and L5 jesus manuel tebral body. There appears to be cortical disruption along the anterior aspect of the L5 vertebral kennedy dy with some increased T2 and diminished T1 signal intensity concerning for regional osteomyelitis. P atient appears to have a congenitally small spinal canal exacerbated by facet hypertrophy and grade 1 anterolisthesis of L4-5 which does result in some degree of central spinal stenosis. 1.5 cm cortica l cyst in the right kidney. 2.8 cm vascular structure in the right pelvis appears to represent a hypo gastric artery aneurysm T12-L1: The thecal sac has a normal diameter. No evidence of disc bulge or protrusion. The neural foramina are patent bilaterally. L1-L2: The thecal sac has a normal diameter. No evidence of disc bulge or protrusion. The neural foramina are patent bilaterally. L2-L3: The thecal sac has a normal diameter. No evidence of disc bulge or protrusion. The neural foramina are patent bilaterally. L3-L4: Bilateral facet hypertrophy with some encroachment on the spinal canal. Spinal canal and neural osmani concetta remain adequate, however L4-L5: Marked bilateral facet hypertrophy. There is some widening of the facet joints bilaterally. In combin ation with grade 1 anterolisthesis and some marginal spurring, there is moderately severe central spi nal stenosis which may compromise the ventral nerve roots. Both neural foramina appear to be adequate L5-S1: Probable inflammatory phlegmon anterior to the L4-5 disc interspace as well as the L5 vertebral body. Cortical disruption along the anterior margin of L5 suggest osteomyelitis. There is some increased T 2 signal intensity throughout the L5 vertebral body. Spinal canal and neural foramina appear to be ad equate. The I do not see extension of the inflammatory phlegmon into the anterior epidural space. CONCLUSION: 1. An apparent inflammatory phlegmon/abscess anterior to the L5 vertebral body with cortical irregula rity along the anterior margin of L5 concerning for regional osteomyelitis. This appears to be confin ed to the prevertebral space. Area is incompletely evaluated without IV contrast. 2. Grade 1 anterolisthesis of L4 on 5 with bilateral facet hypertrophy at the same level results in m oderately severe central spinal stenosis which is probably advanced enough to compromise central nerv e roots. 3. 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 I believe the sp inal canal is adequate at all levels except L4-5, however. 4. 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 This report was verified electronically.
[2017-07-30] MEDS: SODIUM CHLOR 0.9% 1000 ML INJ 1,000 ML IV SCH ×4 (00:59→20:46)
[2017-07-30] MEDS: SODIUM CHLORIDE 0.9% FLUSH 10 ML FLUSH IV FLUSH SCH ×2 (08:30→20:47)
[2017-07-30] MEDS: CEFEPIME INJ 1,000 MG in SODIUM CHLORIDE 0.9% INJ 100 ML IV SCH ×2 (08:33→20:47)
[2017-07-30] MEDS: DOCUSATE SODIUM 50 MG/SENNA 8.6 MG TAB PO SCH ×2 (08:33→20:46)
[2017-07-30 08:53] LABS: AUTOMATED NEUTROPHIL # 15.4 TH/MM3 (1.8-7.7); BASOPHIL % 0.1 % (0.0-2.0); HEMATOCRIT 32.7 % (39.0-51.0); HEMOGLOBIN 10.8 GM/DL (13.0-17.0); LYMPH % 1.9 % (9.0-44.0); LYMPHOCYTE # 0.3 TH/MM3 (1.0-4.8); MEAN CELL VOLUME 87.1 FL (80.0-100.0); MEAN CORPUSCULAR HEMOGLOBIN 28.6 PG (27.0-34.0); MEAN CORPUSCULAR HGB CONC 32.9 % (32.0-36.0); MEAN PLATELET VOLUME 7.6 FL (7.0-11.0); MONO % 1.7 % (0.0-8.0); MONOCYTE # 0.3 TH/MM3 (0-0.9); NEUT % 96.3 % (16.0-70.0); PLATELET COUNT 175 TH/MM3 (150-450); RED BLOOD COUNT 3.76 MIL/MM3 (4.50-5.90)
[2017-07-30 09:29] LABS: ALBUMIN 2.1 GM/DL (3.4-5.0); AST (GOT) 49 U/L (15-37); BICARBONATE 18.2 MEQ/L (21.0-32.0); BLOOD UREA NITROGEN 62 MG/DL (7-18); CALCIUM 8.2 MG/DL (8.5-10.1); CHLORIDE 104 MEQ/L (98-107); CREATININE 2.41 MG/DL (0.60-1.30); GLOMERULAR FILTRATION RATE 34 ML/MIN (>89); GLUCOSE,RANDOM 148 MG/DL (74-106); SODIUM (NA) 134 MEQ/L (136-145)
[2017-07-30 09:34] LABS: ALKALINE PHOSPHATASE 170 U/L (45-117); ALT (GPT) 21 U/L (12-78); TOTAL BILIRUBIN ADULT 1.1 MG/DL (0.2-1.0); TOTAL PROTEIN 7.6 GM/DL (6.4-8.2)
--- NOTE | 2017-07-30 11:14 | PD.CONS ---
History of Present Illness Service Neurosurgery Consult Requested By Hospitalist Reason for Consult Lumbar osteomyelitis with retroperitoneal/prevertebral abscess Primary Care Physician Unknown Diagnoses: History of Present Illness 57-year-old gentleman with a history of lumbar osteomyelitis and discitis with abscess who underwent L4-[address] Felipe from neurosurgery. He has a chronic history of low back pain and more recent MRI scan shows degenerative L4- 5 stenosis with facet hypertrophy and grade 1 spondylolisthesis along with some possible L5 anterior vertebral body osteomyelitis with the prevertebral retroperitoneal abscess. Patient was scheduled to follow-up with Dr. Felipe but returned to the emergency room for persistent back pain. Currently he is very sedated but does awaken and relates that his pain is controlled. He has been ambulating with a cane on a chronic basis. No bowel bladder incontinence or any lower extremity weakness noted. Dr. Gamez from neurosurgery coverage over the weekend was consulted and deferred further management to Dr. Felipe who is currently out of town. Review of Systems ROS Limitations: Poor Historian Past Family Social History Allergies: Coded Allergies: *MDRO Multi-Drug Resistant Organism (Verified Adverse Reaction, Unknown, ) MRSA (leg wound) - 10/2006 MRSA PCR screen positive - 10/2014 Past Medical History Rheumatoid Arthritis, HTN, Hyperlipidemia, CKD Stage III, Chronic Back Pain with history of lumbar epidural abscess and L4-5 laminectomy in 2013, Cocaine Abuse and Tobacco Abuse who presented to the ER w/ complaints of severe back pain. Pt is very poor historian, unable to provide much information or to quantify pain complaints but symptoms are chronic. Reported Medications Flexeril (Cyclobenzaprine HCl) 5 Mg Tab 5 Mg PO TID PRN Hydrocodone-Acetaminophen 5-325 mg Tab 1 Tab PO Q4-6H PRN Ventolin Hfa 18 GM Inh (Albuterol Sulfate) 90 Mcg/Act Aer 2 Puff INH Q4H PRN Prednisone 10 Mg Tab 10 Mg PO DAILY Proair Hfa 8.5 GM Inh (Albuterol Sulfate) 90 Mcg/Act Aer 2 Puff INH Q4-6H PRN 108 mcg/actuation Catapres (Clonidine) 0.1 Mg Tab 0.1 Mg PO DAILY Norvasc (Amlodipine Besylate) 10 Mg Tab 10 Mg PO DAILY Social History He is single and disabled,denies alcohol use with does smoke cigarettes along with drug abuse including cocaine Physical Exam Vital Signs Vital Signs Date Time Temp Pulse Resp B/P (MAP) Pulse Ox O2 Delivery O2 Flow Rate FiO2 07/30/17 08:00 98.2 76 19 118/76 (90) 95 07/30/17 05:13 97.6 70 20 155/90 (111) 97 07/30/17 04:30 76 07/30/17 01:45 88 07/30/17 01:42 97.6 89 22 157/95 (115) 95 07/29/17 20:45 97 Room Air 07/29/17 17:07 98.0 86 22 125/71 (89) 100 Physical Exam GENERAL: This is a well-nourished, well-developed patient, in no apparent distress. SKIN: No rashes, ecchymoses or lesions. Cool and dry. HEAD: Atraumatic. Normocephalic. No temporal or scalp tenderness. EYES: Pupils equal round and reactive. Extraocular motions intact. No scleral icterus. No injection or drainage. ENT: Nose without bleeding, purulent drainage or septal hematoma. Throat without erythema, tonsillar hypertrophy or exudate. Uvula midline. Airway patent. NECK: Trachea midline. No JVD or lymphadenopathy. Supple, nontender, no meningeal signs. CARDIOVASCULAR: Regular rate and rhythm without murmurs, gallops, or rubs. RESPIRATORY: Clear to auscultation. Breath sounds equal bilaterally. No wheezes , rales, or rhonchi. GASTROINTESTINAL: Abdomen soft, non-tender, nondistended. No hepato-splenomegaly , or palpable masses. No guarding. MUSCULOSKELETAL: Extremities without clubbing, cyanosis, or edema. No joint tenderness, effusion, or edema noted. No calf tenderness. Negative Homans sign bilaterally. NEUROLOGICAL: Awakens to verbal stimulation but is sedated. Cranial nerves II through XII intact. Motor and sensory grossly within normal limits. Five out of 5 muscle strength in all muscle groups. Normal speech. Laboratory Laboratory Tests Test 07/29/17 20:40 07/29/17 22:52 07/30/17 08:17 White Blood Count 20.8 16.0 Red Blood Count 4.32 3.76 Hemoglobin 12.5 10.8 Hematocrit 37.5 32.7 Mean Corpuscular Volume 87.0 87.1 Mean Corpuscular Hemoglobin 28.9 28.6 Mean Corpuscular Hemoglobin Concent 33.2 32.9 Red Cell Distribution Width 15.7 16.0 Platelet Count 223 175 Mean Platelet Volume 7.6 7.6 Neutrophils (%) (Auto) 89.0 96.3 Lymphocytes (%) (Auto) 1.8 1.9 Monocytes (%) (Auto) 8.7 1.7 Eosinophils (%) (Auto) 0.4 0.0 Basophils (%) (Auto) 0.1 0.1 Neutrophils # (Auto) 18.5 15.4 Lymphocytes # (Auto) 0.4 0.3 Monocytes # (Auto) 1.8 0.3 Eosinophils # (Auto) 0.1 0.0 Basophils # (Auto) 0.0 0.0 CBC Comment DIFF FINAL DIFF FINAL Differential Comment Prothrombin Time 11.4 Prothromb Time International Ratio 1.1 Activated Partial Thromboplast Time 30.8 Blood Urea Nitrogen 56 62 Creatinine 2.84 2.41 Random Glucose 73 148 Total Protein 9.2 7.6 Albumin 2.7 2.1 Calcium Level 9.4 8.2 Alkaline Phosphatase 197 170 Aspartate Amino Transf (AST/SGOT) 63 49 Alanine Aminotransferase (ALT/SGPT) 24 21 Total Bilirubin 2.0 1.1 Sodium Level 128 134 Potassium Level 5.5 5.2 Chloride Level 96 104 Carbon Dioxide Level 19.7 18.2 Anion Gap 12 12 Estimat Glomerular Filtration Rate 28 34 Total Creatine Kinase 167 Urine Color YELLOW Urine Turbidity HAZY Urine pH 5.5 Urine Specific [place] 1.014 Urine Protein TRACE Urine Glucose (UA) NEG Urine Ketones TRACE Urine Occult Blood NEG Urine Nitrite NEG Urine Bilirubin NEG Urine Urobilinogen 4.0 Urine Leukocyte Esterase NEG Urine RBC LESS THAN 1 Urine WBC 1 Urine Squamous Epithelial Cells <1 Urine Amorphous Sediment RARE Urine Bacteria RARE Urine Hyaline Casts 7 Urine Granular Casts 2 Urine Mucus FEW Microscopic Urinalysis Comment CULT NOT INDICATED Urine Opiates Screen POS Urine Barbiturates Screen NEG Urine Amphetamines Screen NEG Urine Benzodiazepines Screen NEG Urine Cocaine Screen POS Urine Cannabinoids Screen NEG Erythrocyte Sedimentation Rate 97 Date/Time Source Procedure Growth Status 07/29/17 23:25 Blood Peripheral Aerobic Blood Culture - Preliminary NO GROWTH IN 1 DAY Resulted 07/29/17 23:25 Blood Peripheral Anaerobic Blood Culture - Preliminary NO GROWTH IN 1 DAY Resulted Result Diagram: 07/30/17 0817 07/30/17 0817 Imaging Last Impressions Lumbar Spine MRI 07/30/17 0000 Signed Impressions: Service Date/Time: Sunday, July 30, 2017 00:12 - CONCLUSION: 1. An apparent inflammatory phlegmon/abscess anterior to the L5 vertebral body with cortical irregularity along the anterior margin of L5 concerning for regional osteomyelitis. This appears to be confined to the prevertebral space. Area is incompletely evaluated without IV contrast. 2. Grade 1 anterolisthesis of L4 on 5 with bilateral facet hypertrophy at the same level results in moderately severe central spinal stenosis which is probably advanced enough to compromise central nerve roots. 3. 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 I believe the spinal canal is adequate at all levels except L4-5, however. 4. 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 No acute cardiopulmonary disease. Tanner Jones MD Abdomen/Pelvis CT 07/29/17 0000 Signed Impressions: Service Date/Time: Saturday, July 29, 2017 22:14 - CONCLUSION: 1. Significant new prevertebral soft tissue fullness and stranding centered at the L5 level. There is associated sclerosis and erosive changes in the anterior L5 vertebral body which appear unchanged from recent exams. Overall, findings are concerning for discitis and osteomyelitis. Consider repeat MRI examination for further evaluation. 2. 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 However, evaluation is significantly limited due to lack of IV contrast on this exam. This was not present on remote prior CT exam. A mycotic aneurysm cannot be entirely excluded. Contrast enhanced examination would be greatly beneficial in further evaluation. 3. Nodular appearing liver contour consistent with cirrhosis. 4. IVC filter in place. 5. Cholelithiasis. Tanner Jones MD Assessment and Plan Assessment and Plan 57-year-old gentleman with a chronic history of L4-5 epidural abscess status post laminectomy 2014 chronic low back pain. Currently has L4-5 moderate spinal stenosis with grade 1 spondylolisthesis which appears to be degenerative. He also has a prevertebral/retroperitoneal abscess and possible L5 anterior osteomyelitis with elevated sed rate and white count. Retroperitoneal/prevertebral abscess is beyond the realm of neurosurgical management. Recommend CT-guided aspiration by special procedures or vascular surgery/general surgery consult for further evaluation since he also appears to have associated iliac artery aneurysm. Regarding the possibility of L5 osteomyelitis would recommend medical management. Out of bed with physical therapy involvement and can use a lumbar corset for back pain if needed. Dr. Felipe can evaluate the L4-5 degenerative stenosis on elective basis when he returns. Piotr Marie MD Jul 30, 2017 11:14
[2017-07-30] MEDS ORDERED: VANCOMYCIN 1,000 MG/NS 250 ML IV ONE ×2 (12:00)
--- NOTE | 2017-07-30 16:24 | PD.ID.CON ---
History of Present Illness Service ID Consult Requested By Reason for Consult Evaluation and Mment of Discitis, Epidural abscess. Primary Care Physician Unknown Diagnoses: History of Present Illness Patient is a poor historian. Most of the history was obtained by review of medical records. Mr. Gee is a 57-year-old -[place] male with past medical history significant for rheumatoid arthritis on prednisone. From infectious disease standpoint his past medical history significant for prior history of strep epidural abscess as well as bacteremia treated with IV antibiotics and also needing L4 partial laminectomy in 2013 as well as an abscess on the skin of his back.. His past medical history is also significant for chronic kidney disease stage III, chronic back pain, cocaine abuse and tobacco abuse who presented to the emergency department with complaints of severe back pain. Patient is an extremely poor historian and reports that he has had a prior visit to the emergency room on July 23, 2017 with similar symptoms. An MRI of the L-spine did not show any evidence of infection patient was asked to follow-up with Dr. Pineda whom he has seen in the past. On arrival, BP 125/71, HR 86, O2 sat 100% RA, Afebrile. WBC 20.8. Na 128. K+ 5.5. Creatinine 2.84, previously 2.97 on 07/23/2017. INR 1.1. UA negative for UTI. 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 S/p Vanc/ Rocephin in ER. At the time of my evaluation patient is on a regular floor. Appears to be comfortable not in significant pain involving his extremities. Patient reports tingling numbness and extreme pain in his bilateral lower extremities right more than left. Patient denies any bowel bladder incontinence. Denies any decrease in perineal sensation. Infectious diseases consulted for evaluation and management of discitis and epidural abscess. Review of Systems ROS Limitations: Poor Historian Constitutional: DENIES: Diaphoretic episodes, Fatigue, Fever, Weight gain, Weight loss, Chills, Dizziness, Change in appetite, Night Sweats Endocrine: DENIES: Heat/cold intolerance, Polydipsia, Polyuria, Polyphagia Eyes: DENIES: Blurred vision, Diplopia, Eye inflammation, Eye pain, Vision loss , Photosensitivity, Double Vision Ears, nose, mouth, throat: DENIES: Tinnitus, Hearing loss, Vertigo, Nasal discharge, Oral lesions, Throat pain, Hoarseness, Ear Pain, Running Nose, Epistaxis, Sinus Pain, Toothache, Odynophagia Respiratory: DENIES: Apneas, Cough, Snoring, Wheezing, Hemoptysis, Sputum production, Shortness of breath Cardiovascular: DENIES: Chest pain, Palpitations, Syncope, Dyspnea on Exertion , PND, Lower Extremity Edema, Orthopnea, Claudication Gastrointestinal: DENIES: Abdominal pain, Black stools, Bloody stools, Constipation, Diarrhea, Nausea, Vomiting, Difficulty Swallowing, Anorexia Genitourinary: DENIES: Sexual dysfunction, Urinary frequency, Urinary incontinence, Urgency, Hematuria, Dysuria, Nocturia, Penile Discharge, Testicular Pain, Testicular Swelling Musculoskeletal: COMPLAINS OF: Back pain, DENIES: Joint pain, Muscle aches, Stiffness, Joint Swelling, Neck pain Integumentary: DENIES: Abnormal pigmentation, Nail changes, Pruritus, Rash Hematologic/lymphatic: DENIES: Bruising, Lymphadenopathy Immunologic/allergic: DENIES: Eczema, Urticaria Neurologic: DENIES: Abnormal gait, Headache, Localized weakness, Paresthesias, Seizures, Speech Problems, Tremor, Poor Balance Psychiatric: DENIES: Anxiety, Confusion, Mood changes, Depression, Hallucinations, Agitation, Suicidal Ideation, Homicidal Ideation, Delusions Except as stated in HPI: all other systems reviewed are Neg Past Family Social History Allergies: Coded Allergies: *MDRO Multi-Drug Resistant Organism (Verified Adverse Reaction, Unknown, ) MRSA (leg wound) - 10/2006 MRSA PCR screen positive - 10/2014 Past Medical History Epidural abscess strep in past s/b . Strep bacteremia Hepatitis B Rheumatoid Arthritis, HTN, Hyperlipidemia, CKD Stage III, Chronic Back Pain, Cocaine Abuse Tobacco Abuse Past Surgical History Left L4 Semi Laminectomy plus evacuation of epidural abscess in 12/2013. EGD Colonoscopy with polypectomy. Reported Medications Reported Meds & Active Scripts Active Flexeril (Cyclobenzaprine HCl) 5 Mg Tab 5 Mg PO TID PRN Hydrocodone-Acetaminophen 5-325 mg Tab 1 Tab PO Q4-6H PRN Ventolin Hfa 18 GM Inh (Albuterol Sulfate) 90 Mcg/Act Aer 2 Puff INH Q4H PRN Prednisone 10 Mg Tab 10 Mg PO DAILY Proair Hfa 8.5 GM Inh (Albuterol Sulfate) 90 Mcg/Act Aer 2 Puff INH Q4-6H PRN 108 mcg/actuation Catapres (Clonidine) 0.1 Mg Tab 0.1 Mg PO DAILY Reported Norvasc (Amlodipine Besylate) 10 Mg Tab 10 Mg PO DAILY Active Ordered Medications Current Medications Medications (Trade) Dose Ordered Sig/Manjit Route Start Time Stop Time Status Last Admin (NS Flush) 2 ml UNSCH PRN IV FLUSH 07/29/17 20:15 Pharmacy Profile Note 0 ml @ 0 mls/hr UNSCH OTHER 07/29/17 23:15 Cefepime HCl 1000 mg/Sodium Chloride 100 ml @ 200 mls/hr Q12H IV 07/30/17 09:00 07/30/17 08:33 Sodium Chloride 1,000 ml @ 100 mls/hr Q10H IV 07/29/17 23:01 07/30/17 12:08 (NS Flush) 2 ml UNSCH PRN IV FLUSH 07/29/17 23:15 (NS Flush) 2 ml BID IV FLUSH 07/30/17 09:00 (Zofran Inj) 4 mg Q6H PRN IVP 07/29/17 23:15 (Tylenol) 650 mg Q6H PRN PO 07/29/17 23:15 (Morphine Inj) 2 mg Q3H PRN IV PUSH 07/29/17 23:15 (Roxicodone) 5 mg Q4H PRN PO 07/29/17 23:15 (Emilie-Colace) 1 tab BID PO 07/30/17 09:00 (Milk Of Magnesia Liq) 30 ml Q12H PRN PO 07/29/17 23:15 (Senokot) 17.2 mg Q12H PRN PO 07/29/17 23:15 (Dulcolax Supp) 10 mg DAILY PRN RECTAL 07/29/17 23:15 (Lactulose Liq) 30 ml DAILY PRN PO 07/29/17 23:15 (Ativan Inj) 1 mg Q2H PRN IV PUSH 07/29/17 23:15 Family History reviewed and NC to current ID problems. Social History Negative for alcohol. Positive for tobacco and Cocaine. Denies IVDU. Physical Exam Vital Signs Vital Signs Date Time Temp Pulse Resp B/P (MAP) Pulse Ox O2 Delivery O2 Flow Rate FiO2 07/30/17 12:35 98.0 81 18 122/78 (93) 97 07/30/17 08:00 98.2 76 19 118/76 (90) 95 07/30/17 05:13 97.6 70 20 155/90 (111) 97 07/30/17 04:30 76 07/30/17 01:45 88 07/30/17 01:42 97.6 89 22 157/95 (115) 95 07/29/17 20:45 97 Room Air 07/29/17 17:07 98.0 86 22 125/71 (89) 100 Physical Exam GENERAL: This is a well-nourished, well-developed patient, in no apparent distress. SKIN: No rashes, ecchymoses or lesions. Cool and dry. HEAD: Atraumatic. Normocephalic. No temporal or scalp tenderness. EYES: Pupils equal round and reactive. Extraocular motions intact. No scleral icterus. No injection or drainage. ENT: Nose without bleeding, purulent drainage or septal hematoma. Throat without erythema, tonsillar hypertrophy or exudate. Uvula midline. Airway patent. NECK: Trachea midline. Supple, nontender, no meningeal signs. CARDIOVASCULAR: HS audible. No murmur appreciated. RESPIRATORY: Clear to auscultation. Breath sounds equal bilaterally. No wheezes , rales, or rhonchi. GASTROINTESTINAL: Abdomen soft, non-tender, nondistended. MUSCULOSKELETAL: Extremities without clubbing, cyanosis, or edema. No joint tenderness, effusion, or edema noted. No calf tenderness. Negative Homans sign bilaterally. NEUROLOGICAL: Awake and alert. Wiggles toes, Able to bend at knee and hip level with no pain against gravity. Psych cooperative IV line sites with no e.o infection Laboratory Laboratory Tests Test 07/29/17 20:40 07/29/17 22:52 07/30/17 08:17 White Blood Count 20.8 16.0 Red Blood Count 4.32 3.76 Hemoglobin 12.5 10.8 Hematocrit 37.5 32.7 Mean Corpuscular Volume 87.0 87.1 Mean Corpuscular Hemoglobin 28.9 28.6 Mean Corpuscular Hemoglobin Concent 33.2 32.9 Red Cell Distribution Width 15.7 16.0 Platelet Count 223 175 Mean Platelet Volume 7.6 7.6 Neutrophils (%) (Auto) 89.0 96.3 Lymphocytes (%) (Auto) 1.8 1.9 Monocytes (%) (Auto) 8.7 1.7 Eosinophils (%) (Auto) 0.4 0.0 Basophils (%) (Auto) 0.1 0.1 Neutrophils # (Auto) 18.5 15.4 Lymphocytes # (Auto) 0.4 0.3 Monocytes # (Auto) 1.8 0.3 Eosinophils # (Auto) 0.1 0.0 Basophils # (Auto) 0.0 0.0 CBC Comment DIFF FINAL DIFF FINAL Differential Comment Prothrombin Time 11.4 Prothromb Time International Ratio 1.1 Activated Partial Thromboplast Time 30.8 Blood Urea Nitrogen 56 62 Creatinine 2.84 2.41 Random Glucose 73 148 Total Protein 9.2 7.6 Albumin 2.7 2.1 Calcium Level 9.4 8.2 Alkaline Phosphatase 197 170 Aspartate Amino Transf (AST/SGOT) 63 49 Alanine Aminotransferase (ALT/SGPT) 24 21 Total Bilirubin 2.0 1.1 Sodium Level 128 134 Potassium Level 5.5 5.2 Chloride Level 96 104 Carbon Dioxide Level 19.7 18.2 Anion Gap 12 12 Estimat Glomerular Filtration Rate 28 34 Total Creatine Kinase 167 Urine Color YELLOW Urine Turbidity HAZY Urine pH 5.5 Urine Specific [place] 1.014 Urine Protein TRACE Urine Glucose (UA) NEG Urine Ketones TRACE Urine Occult Blood NEG Urine Nitrite NEG Urine Bilirubin NEG Urine Urobilinogen 4.0 Urine Leukocyte Esterase NEG Urine RBC LESS THAN 1 Urine WBC 1 Urine Squamous Epithelial Cells <1 Urine Amorphous Sediment RARE Urine Bacteria RARE Urine Hyaline Casts 7 Urine Granular Casts 2 Urine Mucus FEW Microscopic Urinalysis Comment CULT NOT INDICATED Urine Opiates Screen POS Urine Barbiturates Screen NEG Urine Amphetamines Screen NEG Urine Benzodiazepines Screen NEG Urine Cocaine Screen POS Urine Cannabinoids Screen NEG Erythrocyte Sedimentation Rate 97 Date/Time Source Procedure Growth Status 07/29/17 23:25 Blood Peripheral Aerobic Blood Culture - Preliminary NO GROWTH IN 1 DAY Resulted 07/29/17 23:25 Blood Peripheral Anaerobic Blood Culture - Preliminary NO GROWTH IN 1 DAY Resulted Result Diagram: 07/30/17 0817 07/30/17 0817 Imaging Last Impressions Lumbar Spine MRI 07/30/17 0000 Signed Impressions: Service Date/Time: Sunday, July 30, 2017 00:12 - CONCLUSION: 1. An apparent inflammatory phlegmon/abscess anterior to the L5 vertebral body with cortical irregularity along the anterior margin of L5 concerning for regional osteomyelitis. This appears to be confined to the prevertebral space. Area is incompletely evaluated without IV contrast. 2. Grade 1 anterolisthesis of L4 on 5 with bilateral facet hypertrophy at the same level results in moderately severe central spinal stenosis which is probably advanced enough to compromise central nerve roots. 3. 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 I believe the spinal canal is adequate at all levels except L4-5, however. 4. 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 No acute cardiopulmonary disease. Tanner Jones MD Abdomen/Pelvis CT 07/29/17 0000 Signed Impressions: Service Date/Time: Saturday, July 29, 2017 22:14 - CONCLUSION: 1. Significant new prevertebral soft tissue fullness and stranding centered at the L5 level. There is associated sclerosis and erosive changes in the anterior L5 vertebral body which appear unchanged from recent exams. Overall, findings are concerning for discitis and osteomyelitis. Consider repeat MRI examination for further evaluation. 2. 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 However, evaluation is significantly limited due to lack of IV contrast on this exam. This was not present on remote prior CT exam. A mycotic aneurysm cannot be entirely excluded. Contrast enhanced examination would be greatly beneficial in further evaluation. 3. Nodular appearing liver contour consistent with cirrhosis. 4. IVC filter in place. 5. Cholelithiasis. Tanner Jones MD Assessment and Plan Assessment and Plan Epidural abscess Discitis. 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 Immune compromised host. Acute on chronic kidney disease Hyperkalemia Recs Continue Cefepime IV Continue Vanco IV (target 15-20) for Epidural abscess. IR guided drainage ordered (would recommend specimen for path and micro) Check Hepatitis Profile Check HIV antibody screen Check CRP Neurosurgery input appreciated. Follow cultures Follow clinically. Latricia Goldstein MD Jul 30, 2017 16:24
--- NOTE | 2017-07-30 18:58 | PD.CAR.PN ---
CVT Progress Note Subjective/Hospital Course: Referral received Studies reviewed Full consult to follow Oanh Craig Objective: Vital Signs Date Time Temp Pulse Resp B/P (MAP) Pulse Ox O2 Delivery O2 Flow Rate FiO2 07/30/17 16:49 82 07/30/17 16:00 98.0 83 18 126/74 (91) 99 07/30/17 12:35 98.0 81 18 122/78 (93) 97 07/30/17 08:00 98.2 76 19 118/76 (90) 95 07/30/17 05:13 97.6 70 20 155/90 (111) 97 07/30/17 04:30 76 07/30/17 01:45 88 07/30/17 01:42 97.6 89 22 157/95 (115) 95 07/29/17 20:45 97 Room Air Labs: Laboratory Tests Test 07/30/17 08:17 White Blood Count 16.0 TH/MM3 (4.0-11.0) Red Blood Count 3.76 MIL/MM3 (4.50-5.90) Hemoglobin 10.8 GM/DL (13.0-17.0) Hematocrit 32.7 % (39.0-51.0) Mean Corpuscular Volume 87.1 FL (80.0-100.0) Mean Corpuscular Hemoglobin 28.6 PG (27.0-34.0) Mean Corpuscular Hemoglobin Concent 32.9 % (32.0-36.0) Red Cell Distribution Width 16.0 % (11.6-17.2) Platelet Count 175 TH/MM3 (150-450) Mean Platelet Volume 7.6 FL (7.0-11.0) Neutrophils (%) (Auto) 96.3 % (16.0-70.0) Lymphocytes (%) (Auto) 1.9 % (9.0-44.0) Monocytes (%) (Auto) 1.7 % (0.0-8.0) Eosinophils (%) (Auto) 0.0 % (0.0-4.0) Basophils (%) (Auto) 0.1 % (0.0-2.0) Neutrophils # (Auto) 15.4 TH/MM3 (1.8-7.7) Lymphocytes # (Auto) 0.3 TH/MM3 (1.0-4.8) Monocytes # (Auto) 0.3 TH/MM3 (0-0.9) Eosinophils # (Auto) 0.0 TH/MM3 (0-0.4) Basophils # (Auto) 0.0 TH/MM3 (0-0.2) CBC Comment DIFF FINAL Differential Comment Erythrocyte Sedimentation Rate 97 mm/hr (0-20) Blood Urea Nitrogen 62 MG/DL (7-18) Creatinine 2.41 MG/DL (0.60-1.30) Random Glucose 148 MG/DL (74-106) Total Protein 7.6 GM/DL (6.4-8.2) Albumin 2.1 GM/DL (3.4-5.0) Calcium Level 8.2 MG/DL (8.5-10.1) Alkaline Phosphatase 170 U/L (45-117) Aspartate Amino Transf (AST/SGOT) 49 U/L (15-37) Alanine Aminotransferase (ALT/SGPT) 21 U/L (12-78) Total Bilirubin 1.1 MG/DL (0.2-1.0) Sodium Level 134 MEQ/L (136-145) Potassium Level 5.2 MEQ/L (3.5-5.1) Chloride Level 104 MEQ/L (98-107) Carbon Dioxide Level 18.2 MEQ/L (21.0-32.0) Anion Gap 12 MEQ/L (5-15) Estimat Glomerular Filtration Rate 34 ML/MIN (>89) Result Diagram: 07/30/1717 07/30/1717 Felicia Sanchez MD Jul 30, 2017 18:58
--- NOTE | 2017-07-30 19:10 | HHI.PR ---
Subjective Remarks 57-year-old male admitted for L5 osteomyelitis. His back pain is decently controlled, he complains of bilateral lower extremity numbness and weakness which is part of the reason he arrived here. Objective Vitals Vital Signs Date Time Temp Pulse Resp B/P (MAP) Pulse Ox O2 Delivery O2 Flow Rate FiO2 07/30/17 16:49 82 07/30/17 16:00 98.0 83 18 126/74 (91) 99 07/30/17 12:35 98.0 81 18 122/78 (93) 97 07/30/17 08:00 98.2 76 19 118/76 (90) 95 07/30/17 05:13 97.6 70 20 155/90 (111) 97 07/30/17 04:30 76 07/30/17 01:45 88 07/30/17 01:42 97.6 89 22 157/95 (115) 95 07/29/17 20:45 97 Room Air I/O 07/29/17 07/29/17 07/29/17 07/30/17 07/30/17 07/30/17 07:00 15:00 23:00 07:00 15:00 23:00 Intake Total 100 ml 1100 ml 250 ml Output Total 400 ml Balance -300 ml 1100 ml 250 ml Intake IV Total 100 ml 1100 ml 250 ml Output Urine Total 400 ml # Voids 1 Result Diagram: 07/30/17 0817 07/30/17 0817 Objective Remarks GENERAL: Well-nourished, well-developed patient. SKIN: Warm and dry. HEAD: Normocephalic. EYES: No scleral icterus. No injection or drainage. NECK: Supple, trachea midline. No JVD or lymphadenopathy. CARDIOVASCULAR: Regular rate and rhythm without murmurs, gallops, or rubs. RESPIRATORY: Breath sounds equal bilaterally. No accessory muscle use. GASTROINTESTINAL: Abdomen soft, non-tender, nondistended. EXTREMITIES: No cyanosis, or edema. NEUROLOGICAL: Awake, alert, and oriented x 3. 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 - Aneurysm of unspecified site (3) Cocaine abuse ICD Code: F14.10 - Cocaine abuse, uncomplicated (4) Hyperkalemia ICD Code: E87.5 - Hyperkalemia (5) Hyponatremia ICD Code: E87.1 - Hypo-osmolality and hyponatremia (6) CKD (chronic kidney disease) stage 3, GFR 30-59 ml/min ICD Code: N18.3 - Chronic kidney disease, stage 3 (moderate) Assessment and Plan Osteomyelitis L5 vertebra Discovery following back pain with increased weakness Confirmed with CT and MRI of lumbar spine Neurosurgery recommends CT-guided aspiration of what appears to be a pocket of pus Continue with cefepime and vancomycin IV Follow clinically and follow leukocytosis trend Appreciate neurosurgery recommendations Appreciate infectious disease consult Mycotic aneurysm 2.9 cm aneurysm and right internal iliac artery Incidental finding, patient denies IV drug use Cardiothoracic surgery recommendations to follow Appreciate vascular surgery consult h/o cocaine abuse Patient denies IV drug use Follow for signs of withdrawal Hyponatremia Improving, borderline at this point Recheck in the morning labs Hyperkalemia Borderline elevation Follow a.m. labs Chronic kidney disease Likely related to cocaine abuse Follow trend with a.m. labs DVT prophylaxis AIDAs Wesley Rao MD Jul 30, 2017 19:10
--- NOTE | 2017-07-30 19:18 | ECHRPT ---
Indication: SEPSIS ENDOCARDITIS CONCLUSIONS Normal left ventricular size. Moderate concentric left ventricular hypertrophy. The left ventricular systolic function is normal with an estimated ejection fraction of 55%. Mitral annular calcification is present. Trace mitral valve regurgitation. Aortic valve sclerosis is present. Trace aortic valve regurgitation. BP: / HR: Rhythm: MEASUREMENTS (Male / Female) Normal Values Technical Quality: 2D ECHO LV Diastolic Diameter PLAX 4.0 cm 4.2 - 5.9 / 3.9 - 5.3 cm IVS Diastolic Thickness 1.4 cm 0.6 - 1.0 / 0.6 - 0.9 cm LVPW Diastolic Thickness 0.9 cm 0.6 - 1.0 / 0.6 - 0.9 cm LV Relative Wall Thickness 0.6 DOPPLER Mitral E Point Velocity 54.3 cm/s Mitral A Point Velocity 90.3 cm/s Mitral E to A Ratio 0.6 TR Peak Velocity 212.0 cm/s TR Peak Gradient 18.0 mmHg FINDINGS LEFT VENTRICLE Normal left ventricular size. Moderate concentric left ventricular hypertrophy. The left ventricular systolic function is normal with an estimated ejection fraction of 55%. RIGHT VENTRICLE Normal right ventricular size and systolic function. LEFT ATRIUM The left atrial size is normal. RIGHT ATRIUM The right atrial size is normal. ATRIAL SEPTUM Normal atrial septal thickness without atrial level shunting by limited color doppler interrogation. AORTA The aortic root and proximal ascending aorta are normal in size on limited imaging. MITRAL VALVE Mitral annular calcification is present. Trace mitral valve regurgitation. AORTIC VALVE Aortic valve sclerosis is present. Trace aortic valve regurgitation. TRICUSPID VALVE Structurally normal tricuspid valve. No tricuspid valve stenosis or regurgitation. PULMONARY VALVE The pulmonary valve is not well visualized. VESSELS The inferior vena cava is normal in size. PERICARDIUM No pericardial effusion. John Morales MD, FACC (Electronically Signed) Final Date:30 July 2017 19:17
[2017-07-31] VITALS (10 sets, daily range): BP systolic 126–158; BP diastolic 69–107; PULSE 69–93; RESP 17–20; TEMP 97.5–98.4; O2SAT 94–98
[2017-07-31] MEDS: SODIUM CHLOR 0.9% 1000 ML INJ 1,000 ML IV SCH ×2 (05:39→14:59)
[2017-07-31 08:11] LABS: BICARBONATE 19.2 MEQ/L (21.0-32.0); CALCIUM 8.3 MG/DL (8.5-10.1); CREATININE 2.32 MG/DL (0.60-1.30)
[2017-07-31 08:13] LABS: RANDOM VANCOMYCIN 18.1 COMMENT
[2017-07-31] MEDS: CEFEPIME INJ 1,000 MG in SODIUM CHLORIDE 0.9% INJ 100 ML IV SCH ×2 (08:38→21:28)
[2017-07-31] MEDS: SODIUM CHLORIDE 0.9% FLUSH 10 ML FLUSH IV FLUSH SCH ×2 (08:39→21:24)
[2017-07-31] MEDS: DOCUSATE SODIUM 50 MG/SENNA 8.6 MG TAB PO SCH ×2 (08:40→21:24)
--- NOTE | 2017-07-31 10:48 | HHI.PR ---
Subjective Remarks Patient is sleeping today, pain well controlled. I described the CT-guided needle removal of pus that is planned and his only request that he does not want to feel anything and he would prefer to be asleep during the procedure. Objective Vitals Vital Signs Date Time Temp Pulse Resp B/P (MAP) Pulse Ox O2 Delivery O2 Flow Rate FiO2 07/31/17 08:00 97.9 69 18 126/74 (91) 96 07/31/17 04:00 97.5 80 18 135/89 (104) 94 07/31/17 00:00 97.6 87 18 142/81 (101) 98 07/30/17 23:00 83 07/30/17 16:49 82 07/30/17 16:00 98.0 83 18 126/74 (91) 99 07/30/17 12:35 98.0 81 18 122/78 (93) 97 I/O 07/30/17 07/30/17 07/30/17 07/31/17 07/31/17 07/31/17 07:00 15:00 23:00 07:00 15:00 23:00 Intake Total 100 ml 1100 ml 250 ml Output Total 400 ml 200 ml Balance -300 ml 1100 ml 250 ml -200 ml Intake IV Total 100 ml 1100 ml 250 ml Output Urine Total 400 ml 200 ml # Voids 1 Result Diagram: 07/30/17 0817 07/31/17 0543 Objective Remarks GENERAL: Well-nourished, well-developed patient. SKIN: Warm and dry. HEAD: Normocephalic. EYES: No scleral icterus. No injection or drainage. NECK: Supple, trachea midline. No JVD or lymphadenopathy. CARDIOVASCULAR: Regular rate and rhythm without murmurs, gallops, or rubs. RESPIRATORY: Breath sounds equal bilaterally. No accessory muscle use. GASTROINTESTINAL: Abdomen soft, non-tender, nondistended. EXTREMITIES: No cyanosis, or edema. NEUROLOGICAL: Awake, alert, and oriented x 3. 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 - Aneurysm of unspecified site (3) Cocaine abuse ICD Code: F14.10 - Cocaine abuse, uncomplicated (4) Hyperkalemia ICD Code: E87.5 - Hyperkalemia (5) Hyponatremia ICD Code: E87.1 - Hypo-osmolality and hyponatremia (6) CKD (chronic kidney disease) stage 3, GFR 30-59 ml/min ICD Code: N18.3 - Chronic kidney disease, stage 3 (moderate) Assessment and Plan Osteomyelitis L5 vertebra Discovery following back pain with increased weakness Confirmed with CT and MRI of lumbar spine Neurosurgery recommends CT-guided aspiration of what appears to be a pocket of pus Continue with cefepime and vancomycin IV Leukocytosis trend is overall downward, will continue to follow Appreciate neurosurgery recommendations Appreciate infectious disease consult 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
[2017-07-31] MEDS ORDERED: MIDAZOLAM HCL 2 MG/2 ML VIAL ONE (13:09)
[2017-07-31] MEDS ORDERED: SODIUM BICARBONATE 8.4% INJ 50 ML ONE (13:33)
--- NOTE | 2017-07-31 13:43 | PD.RAD ---
Post Procedure Progress Note Pre Procedure Diagnosis: (1) Lumbar discitis Post Procedure Diagnosis: (1) Lumbar discitis Procedure Date: July 31, 2017 Supervising Radiologist: Candelario Reina Estimated blood loss: none Anesthesia: Local, Conscious Sedation Plan of Activity Patient to Unit: ROPU Patient Condition: Fair Additional Comments: Successful disc biopsy at L4/L5 Samples sent to pathology Full report to follow See PACS Report for procedural detail/treatment Candelario Reina MD July 31, 2017 13:43
[2017-07-31] MEDS: MORPHINE SULFATE 4 MG/ML INJ IV PUSH PRN ×4 (14:55→21:35)
[2017-07-31] MEDS ORDERED: VANCOMYCIN 1,500 MG/NS 500 ML IV ONE ×2 (18:00)
[2017-08-01] VITALS (8 sets, daily range): BP systolic 107–153; BP diastolic 75–98; PULSE 89–106; RESP 18–20; TEMP 97.3–98.6; O2SAT 93–97
[2017-08-01] MEDS: MORPHINE SULFATE 4 MG/ML INJ IV PUSH PRN (01:54)
[2017-08-01] MEDS: SODIUM CHLOR 0.9% 1000 ML INJ 1,000 ML IV SCH ×3 (01:56→21:37)
[2017-08-01 05:27] LABS: AUTOMATED NEUTROPHIL # 18.3 TH/MM3 (1.8-7.7); BASOPHIL # 0.1 TH/MM3 (0-0.2); BASOPHIL % 0.3 % (0.0-2.0); EOSINOPHIL # 0.1 TH/MM3 (0-0.4); EOSINOPHIL % 0.2 % (0.0-4.0); HEMATOCRIT 37.3 % (39.0-51.0); LYMPH % 2.2 % (9.0-44.0); LYMPHOCYTE # 0.4 TH/MM3 (1.0-4.8); MEAN CELL VOLUME 88.4 FL (80.0-100.0); MEAN CORPUSCULAR HEMOGLOBIN 28.5 PG (27.0-34.0); MEAN CORPUSCULAR HGB CONC 32.2 % (32.0-36.0); MONO % 6.7 % (0.0-8.0); MONOCYTE # 1.4 TH/MM3 (0-0.9); NEUT % 90.6 % (16.0-70.0); PLATELET COUNT 191 TH/MM3 (150-450); RED BLOOD COUNT 4.22 MIL/MM3 (4.50-5.90); RED CELL DISTRIBUTION WIDTH 16.3 % (11.6-17.2); WHITE BLOOD COUNT 20.3 TH/MM3 (4.0-11.0)
[2017-08-01 05:52] LABS: CALCIUM 8.4 MG/DL (8.5-10.1); CREATININE 2.18 MG/DL (0.60-1.30)
--- NOTE | 2017-08-01 09:10 | MB ---
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 HISTORY OF PRESENT ILLNESS: This 57-year-old male presented to the hospital with a history of lumbar osteomyelitis. He underwent L4-L5 laminectomy in the past, chronic history of back pain, degenerative changes. 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 PAST MEDICAL HISTORY: The patient is a very poor historian and I am not getting much out of him, but I am getting most of the stop from the chart. The patient has a history of rheumatoid arthritis, stage III renal insufficiency, epidural abscesses, hyperlipidemia, history of cocaine abuse and tobacco abuse. He is no medications at home. SOCIAL HISTORY: He is disabled. Denies drinking; however, smokes cigarettes including using cocaine. PHYSICAL EXAMINATION: GENERAL: Reveals a 57-year-old male, somewhat overweight. HEENT: Normocephalic. No trauma to head. Pupils equal, reactive. Extraocular muscles intact. NECK: Bilateral carotid pulses. No bruits. CHEST: Bilateral breath sounds. HEART: Regular rate and rhythm. ABDOMEN: Soft, active bowel sounds. On palpation, nontender. EXTREMITIES: The patient has good proximal distal pulses. No signs of vascular deficit. BACK: Normal. I reviewed laboratory and diagnostic procedures. This patient had a CT without contrast so it is hard to tell, but he does have some widening of the right internal iliac artery at the very takeoff from the common. I am not sure but this might also be common iliac artery measuring about 2.5-3 cm in diameter. At this point, the patient would need a CTA with runoff with contrast where we could specifically delineate this lesion. At that point, decision would be made how to treat it. Most likely this could be treated endovascularly with a stent placement and coiling of the same, depending on the location. Having said all this, patient's renal function is impaired and administration of contrast is out of the question at this time. So once the renal function is improved, then we can talk about it. Right now, patient is not a candidate for any endovascular or vascular procedure based on his renal function. In addition this patient has osteomyelitis of the spinal area which probably has spread into the retroperitoneal space and therefore placement of any prosthetic material at this point would be contraindicated. Patient will probably need eradication or at least attempt of elimination of infections for this seems to be a bigger problem at this time. If I can assist in any way in this endeavor please let me know but patient is definitely not a candidate for any endovascular stents at this time. Thank you very much for referral. MD DANIELE Lira/ , 07:26 PM , 07:44 PM LOREN
[2017-08-01] MEDS: DOCUSATE SODIUM 50 MG/SENNA 8.6 MG TAB PO SCH ×2 (10:47→21:36)
[2017-08-01] MEDS: CEFEPIME INJ 1,000 MG in SODIUM CHLORIDE 0.9% INJ 100 ML IV SCH ×2 (10:48→21:37)
[2017-08-01] MEDS: oxyCODONE/ACETAMINOPHEN 10 MG/325 MG TAB PO PRN ×2 (10:49→21:36)
[2017-08-01] MEDS: SODIUM CHLORIDE 0.9% FLUSH 10 ML FLUSH IV FLUSH SCH ×2 (10:50→21:37)
[2017-08-01] MEDS: LACTULOSE SYRUP 20 GM/30 ML CUP PO PRN (10:51)
--- NOTE | 2017-08-01 12:44 | HHI.PR ---
Subjective Remarks Patient complains of some aggravated back pain following his procedure yesterday. He would like an adjustment of his pain medications. Objective Vitals Vital Signs Date Time Temp Pulse Resp B/P (MAP) Pulse Ox O2 Delivery O2 Flow Rate FiO2 08/01/17 12:01 98.1 102 20 124/82 (96) 96 08/01/17 08:28 97.4 106 20 121/88 (99) 95 08/01/17 04:00 98.6 106 18 127/79 (95) 95 08/01/17 00:00 97.6 99 18 153/98 (116) 94 07/31/17 23:00 93 07/31/17 20:00 97.8 93 18 133/87 (102) 95 07/31/17 18:47 82 07/31/17 16:00 98.4 75 18 127/69 (88) 98 07/31/17 14:20 88 20 158/104 (122) 97 07/31/17 14:20 87 20 155/89 (111) 96 07/31/17 13:50 98.2 86 20 154/107 (123) 97 I/O 07/31/17 07/31/17 07/31/17 08/01/17 08/01/17 08/01/17 07:00 15:00 23:00 07:00 15:00 23:00 Intake Total 480 ml Output Total 200 ml 750 ml 800 ml Balance -200 ml -750 ml -320 ml Intake Oral 480 ml Output Urine Total 200 ml 750 ml 800 ml # Voids 3 Result Diagram: 08/01/17 0452 08/01/17 0452 Objective Remarks GENERAL: Well-nourished, well-developed patient. Uncomfortable (pain) SKIN: Warm and dry. HEAD: Normocephalic. EYES: No scleral icterus. No injection or drainage. NECK: Supple, trachea midline. No JVD or lymphadenopathy. CARDIOVASCULAR: Regular rate and rhythm without murmurs, gallops, or rubs. RESPIRATORY: Breath sounds equal bilaterally. No accessory muscle use. GASTROINTESTINAL: Abdomen soft, non-tender, nondistended. EXTREMITIES: No cyanosis, or edema. NEUROLOGICAL: Awake, alert, and oriented x 3. 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 - Aneurysm of unspecified site (3) Cocaine abuse ICD Code: F14.10 - Cocaine abuse, uncomplicated (4) Hyperkalemia ICD Code: E87.5 - Hyperkalemia (5) Hyponatremia ICD Code: E87.1 - Hypo-osmolality and hyponatremia (6) CKD (chronic kidney disease) stage 3, GFR 30-59 ml/min ICD Code: N18.3 - Chronic kidney disease, stage 3 (moderate) Assessment and Plan Osteomyelitis L5 vertebra Discovery following back pain with increased weakness Confirmed with CT and MRI of lumbar spine Continue with IV cefepime and vancomycin Patient underwent a CT-guided removal of fluid for culture as well as disc biopsy on 07/31/2017 Following leukocytosis trend Appreciate neurosurgery recommendations Appreciate infectious disease consult 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
[2017-08-02] VITALS (10 sets, daily range): BP systolic 130–169; BP diastolic 69–86; PULSE 93–106; RESP 18–20; TEMP 97.6–98.6; O2SAT 96–99
[2017-08-02] MEDS: oxyCODONE/ACETAMINOPHEN 10 MG/325 MG TAB PO PRN ×5 (03:42→23:31)
[2017-08-02] MEDS: SODIUM CHLOR 0.9% 1000 ML INJ 1,000 ML IV SCH ×3 (07:01→17:01)
[2017-08-02] MEDS ORDERED: cefTRIAXone INJ 2,000 MG in SODIUM CHLORIDE 0.9% INJ 100 ML IV SCH (08:00)
[2017-08-02] MEDS: DOCUSATE SODIUM 50 MG/SENNA 8.6 MG TAB PO SCH ×2 (08:08→20:23)
--- NOTE | 2017-08-02 08:27 | RADRPT ---
EXAM DATE/TIME: 07/31/2017 13:29 [facility] COMPARISON: VENOGRAM IVC W FILTER PLACEMENT, May 06, 2015, 13:25. INDICATIONS : Patient presents with osteomyelitis with low back pain in need of disc aspiration. MEDICAL HISTORY : Rheumatoid Arthritis HTN Hyperlipidemia CKD Stage III Chronic Back Pain Cocaine Abuse and Tobacco Abuse SURGICAL HISTORY : Lumbar Surgery ENCOUNTER: Initial ACUITY: >1 year PAIN SCORE: 10/10 LOCATION: Lower back pain FLUORO TIME: 3.9 minutes IMAGE SERIES: 1 SEDATION TIME: 10 minutes MEDICATION(S): 1.) 2 mg midazolam (Versed) IV 2.) 100 mcg fentanyl (Sublimaze) IV DEVICE(S): 1.) 22 gauge 15CM Chiba needle Core specimen(s) was obtained and submitted to laboratory for pathologic evaluation. PROCEDURE : 1. Fluoroscopically guided needle biopsy. 2. Conscious sedation with continuous EKG and Oximetry monitoring. The risks, benefits and alternatives to the procedure were explained and verbal and written consent w as obtained. The site was prepped in sterile fashion. Full sterile technique was used, including cap, mask, steri le gloves and gown and a large sterile sheet. Hand hygiene and 2% chlorhexidine and/or betadine/alco hol prep was utilized per protocol for cutaneous antisepsis. The skin and subcutaneous tissues were infiltrated with local anesthetic solution. With fluoroscopic guidance the disc space at the L4-5 level was accessed in an oblique plane. Aspirat ion biopsy was performed. Samples were sent to pathology for Gram stain culture and sensitivity. Conscious sedation was performed with the prescribed dosages and duration as above in the presence of an independent trained radiology nurse to assist in the monitoring of the patient. EKG and oximetry remained stable throughout the procedure. CONCLUSION: Uncomplicated needle biopsy of the L4/L5 disc space as above. Candelario Reina MD on August 02, 2017 at 8:23 Board Certified Radiologist. This report was verified electronically.
[2017-08-02] MEDS: SODIUM CHLORIDE 0.9% FLUSH 10 ML FLUSH IV FLUSH SCH ×2 (09:00→20:23)
[2017-08-02 09:48] LABS: AUTOMATED NEUTROPHIL # 19.8 TH/MM3 (1.8-7.7); BASOPHIL % 0.2 % (0.0-2.0); EOSINOPHIL # 0.1 TH/MM3 (0-0.4); EOSINOPHIL % 0.5 % (0.0-4.0); HEMATOCRIT 33.6 % (39.0-51.0); HEMOGLOBIN 10.6 GM/DL (13.0-17.0); LYMPH % 2.6 % (9.0-44.0); LYMPHOCYTE # 0.6 TH/MM3 (1.0-4.8); MEAN CELL VOLUME 88.9 FL (80.0-100.0); MEAN CORPUSCULAR HEMOGLOBIN 28.1 PG (27.0-34.0); MEAN CORPUSCULAR HGB CONC 31.7 % (32.0-36.0); MEAN PLATELET VOLUME 7.3 FL (7.0-11.0); MONOCYTE # 1.3 TH/MM3 (0-0.9); NEUT % 90.7 % (16.0-70.0); PLATELET COUNT 183 TH/MM3 (150-450); RED BLOOD COUNT 3.78 MIL/MM3 (4.50-5.90); RED CELL DISTRIBUTION WIDTH 16.3 % (11.6-17.2); WHITE BLOOD COUNT 21.9 TH/MM3 (4.0-11.0)
[2017-08-02 10:25] LABS: BICARBONATE 18.9 MEQ/L (21.0-32.0); CALCIUM 8.3 MG/DL (8.5-10.1)
[2017-08-02 10:27] LABS: RANDOM VANCOMYCIN 13.7 COMMENT
[2017-08-02] MEDS: cefTRIAXone INJ 2,000 MG in SODIUM CHLORIDE 0.9% INJ 100 ML IV SCH ×2 (12:37→23:39)
[2017-08-02] MEDS ORDERED: VANCOMYCIN INJ 2,000 MG in SODIUM CHLORID 0.9% 500 ML INJ 500 ML IV ONE (14:00)
--- NOTE | 2017-08-02 14:10 | HHI.IDPN ---
Subjective Subjective Remarks Mr. Gee is a 57-year-old -[place] male with past medical history significant for rheumatoid arthritis on prednisone. From infectious disease standpoint his past medical history significant for prior history of strep epidural abscess as well as bacteremia treated with IV antibiotics and also needing L4 partial laminectomy in 2013 as well as an abscess on the skin of his back.. His past medical history is also significant for chronic kidney disease stage III, chronic back pain, cocaine abuse and tobacco abuse who presented to the emergency department with complaints of severe back pain. Patient is an extremely poor historian and reports that he has had a prior visit to the emergency room on July 23, 2017 with similar symptoms. An MRI of the L-spine did not show any evidence of infection patient was asked to follow-up with Dr. Pineda whom he has seen in the past. On arrival, BP 125/71, HR 86, O2 sat 100% RA, Afebrile. WBC 20.8. Na 128. K+ 5.5. Creatinine 2.84, previously 2.97 on 07/23/2017. INR 1.1. UA negative for UTI. 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 S/p Vanc/ Rocephin in ER. At the time of my evaluation patient is on a regular floor. Appears to be comfortable not in significant pain involving his extremities. Patient reports tingling numbness and extreme pain in his bilateral lower extremities right more than left. Patient denies any bowel bladder incontinence. Denies any decrease in perineal sensation. Infectious diseases consulted for evaluation and management of discitis and epidural abscess. Overnight events reviewed No fevers No rash No diarrhea. Able to flex his legs. Denies any GI or dental issues prior to admission Reports being on steroids for rheum issues. Dw to restart prednisone if not on it already. dw patient he adamantly denies IVDA. He reports he is scared of needles. He understands he will need IV antibiotics on discharge. Antibiotics Ceftriaxone IV Lines Line sites with no e.o infection. Past Medical History reviewed. Allergies: Coded Allergies: *MDRO Multi-Drug Resistant Organism (Verified Adverse Reaction, Unknown, ) MRSA (leg wound) - 10/2006 MRSA PCR screen positive - 10/2014 Objective . Vital Signs Date Time Temp Pulse Resp B/P (MAP) Pulse Ox O2 Delivery O2 Flow Rate FiO2 08/02/17 11:31 97.8 97 20 137/69 (91) 96 08/02/17 09:41 99 08/02/17 08:17 97.8 99 20 130/83 (99) 96 08/02/17 04:00 105 08/02/17 03:46 98.6 106 20 167/86 (113) 98 08/02/17 00:00 102 08/02/17 00:00 98.0 102 20 137/78 (97) 96 08/01/17 21:28 97.3 93 20 151/84 (106) 97 08/01/17 20:05 95 08/01/17 16:20 97.7 89 20 107/75 (86) 93 08/02/17 08/02/17 08/03/17 15:00 23:00 07:00 Output Total 250 ml Balance -250 ml Output Urine Total 250 ml . Laboratory Tests Test 08/01/17 04:52 08/02/17 08:45 White Blood Count 20.3 TH/MM3 21.9 TH/MM3 Red Blood Count 4.22 MIL/MM3 3.78 MIL/MM3 Hemoglobin 12.0 GM/DL 10.6 GM/DL Hematocrit 37.3 % 33.6 % Mean Corpuscular Volume 88.4 FL 88.9 FL Mean Corpuscular Hemoglobin 28.5 PG 28.1 PG Mean Corpuscular Hemoglobin Concent 32.2 % 31.7 % Red Cell Distribution Width 16.3 % 16.3 % Platelet Count 191 TH/MM3 183 TH/MM3 Mean Platelet Volume 7.0 FL 7.3 FL Neutrophils (%) (Auto) 90.6 % 90.7 % Lymphocytes (%) (Auto) 2.2 % 2.6 % Monocytes (%) (Auto) 6.7 % 6.0 % Eosinophils (%) (Auto) 0.2 % 0.5 % Basophils (%) (Auto) 0.3 % 0.2 % Neutrophils # (Auto) 18.3 TH/MM3 19.8 TH/MM3 Lymphocytes # (Auto) 0.4 TH/MM3 0.6 TH/MM3 Monocytes # (Auto) 1.4 TH/MM3 1.3 TH/MM3 Eosinophils # (Auto) 0.1 TH/MM3 0.1 TH/MM3 Basophils # (Auto) 0.1 TH/MM3 0.0 TH/MM3 CBC Comment DIFF FINAL DIFF FINAL Differential Comment Laboratory Tests Test 08/01/17 04:52 08/02/17 08:45 Blood Urea Nitrogen 53 MG/DL 51 MG/DL Creatinine 2.18 MG/DL 2.00 MG/DL Random Glucose 101 MG/DL 83 MG/DL Calcium Level 8.4 MG/DL 8.3 MG/DL Sodium Level 135 MEQ/L 134 MEQ/L Potassium Level 4.8 MEQ/L 4.7 MEQ/L Chloride Level 107 MEQ/L 109 MEQ/L Carbon Dioxide Level 21.0 MEQ/L 18.9 MEQ/L Anion Gap 7 MEQ/L 6 MEQ/L Estimat Glomerular Filtration Rate 38 ML/MIN 42 ML/MIN Microbiology Date/Time Source Procedure Growth Status 08/02/17 11:45 Blood Peripheral Aerobic Blood Culture Pending Received 08/02/17 11:45 Blood Peripheral Anaerobic Blood Culture Pending Received 08/02/17 11:37 Blood Peripheral Aerobic Blood Culture Pending Received 08/02/17 11:37 Blood Peripheral Anaerobic Blood Culture Pending Received 07/31/17 13:38 Fluid Other Fungal Smear - Final NO FUNGAL ELEMENTS SEEN. Resulted 07/31/17 13:38 Fluid Other Fungal Culture Pending Resulted 07/31/17 13:38 Fluid Other Acid Fast Stain - Final NO ACID FAST BACILLI SEEN Resulted 07/31/17 13:38 Fluid Other Mycobacterial Culture Pending Resulted 07/31/17 13:38 Fluid Other Gram Stain - Final Complete 07/31/17 13:38 Fluid Other Body Fluid Culture - Final Complete Imaging Last Impressions Needle Biopsy/Aspiration X-Ray 07/31/17 0000 Signed Impressions: Service Date/Time: Monday, July 31, 2017 13:29 - CONCLUSION: Uncomplicated needle biopsy of the L4/L5 disc space as above. Candelario Reina MD Lumbar Spine MRI 07/30/17 0000 Signed Impressions: Service Date/Time: Sunday, July 30, 2017 00:12 - CONCLUSION: 1. An apparent inflammatory phlegmon/abscess anterior to the L5 vertebral body with cortical irregularity along the anterior margin of L5 concerning for regional osteomyelitis. This appears to be confined to the prevertebral space. Area is incompletely evaluated without IV contrast. 2. Grade 1 anterolisthesis of L4 on 5 with bilateral facet hypertrophy at the same level results in moderately severe central spinal stenosis which is probably advanced enough to compromise central nerve roots. 3. 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 I believe the spinal canal is adequate at all levels except L4-5, however. 4. 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 No acute cardiopulmonary disease. Tanner Jones MD Abdomen/Pelvis CT 07/29/17 0000 Signed Impressions: Service Date/Time: Saturday, July 29, 2017 22:14 - CONCLUSION: 1. Significant new prevertebral soft tissue fullness and stranding centered at the L5 level. There is associated sclerosis and erosive changes in the anterior L5 vertebral body which appear unchanged from recent exams. Overall, findings are concerning for discitis and osteomyelitis. Consider repeat MRI examination for further evaluation. 2. 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 However, evaluation is significantly limited due to lack of IV contrast on this exam. This was not present on remote prior CT exam. A mycotic aneurysm cannot be entirely excluded. Contrast enhanced examination would be greatly beneficial in further evaluation. 3. Nodular appearing liver contour consistent with cirrhosis. 4. IVC filter in place. 5. Cholelithiasis. Tanner Jones MD Physical Exam GENERAL: This is a well-nourished, well-developed patient, in no apparent distress. SKIN: No rashes, ecchymoses or lesions. Cool and dry. HEAD: Atraumatic. Normocephalic. No temporal or scalp tenderness. EYES: Pupils equal round and reactive. Extraocular motions intact. No scleral icterus. No injection or drainage. ENT: Nose without bleeding, purulent drainage or septal hematoma. Throat without erythema, tonsillar hypertrophy or exudate. Uvula midline. Airway patent. NECK: Trachea midline. Supple, nontender, no meningeal signs. CARDIOVASCULAR: HS audible. No murmur appreciated. RESPIRATORY: Clear to auscultation. Breath sounds equal bilaterally. No wheezes , rales, or rhonchi. GASTROINTESTINAL: Abdomen soft, non-tender, nondistended. MUSCULOSKELETAL: Extremities without clubbing, cyanosis, or edema. No joint tenderness, effusion, or edema noted. No calf tenderness. Negative Homans sign bilaterally. NEUROLOGICAL: Awake and alert. Wiggles toes, Able to bend at knee and hip level with no pain against gravity. Psych cooperative IV line sites with no e.o infection Assessment & Plan Remarks Epidural abscess Discitis. Strep Angionosus bacteremia. 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 Prior h.o Epidural abscess Cocaine but denies IVDA Rheumatoid arthritis on prednisone. Immune compromised host. Acute on chronic kidney disease Hyperkalemia Recs Continue Ceftriaxone IV 2D ECHO negative for vegetations. Follow blood cultures if persistently positive will need TR. Follow cultures Follow clinically. Latricia Ng RN, MD August 02, 2017 14:10
--- NOTE | 2017-08-02 17:20 | HHI.PR ---
Subjective Remarks Patient reports that he has better on his pain level after medications were increased. He is not yet ready to ambulate further than the bathroom, he denies any nausea or vomiting. Objective Vitals Vital Signs Date Time Temp Pulse Resp B/P (MAP) Pulse Ox O2 Delivery O2 Flow Rate FiO2 08/02/17 16:24 97.7 94 20 130/77 (94) 97 08/02/17 11:31 97.8 97 20 137/69 (91) 96 08/02/17 09:41 99 08/02/17 08:17 97.8 99 20 130/83 (99) 96 08/02/17 04:00 105 08/02/17 03:46 98.6 106 20 167/86 (113) 98 08/02/17 00:00 102 08/02/17 00:00 98.0 102 20 137/78 (97) 96 08/01/17 21:28 97.3 93 20 151/84 (106) 97 08/01/17 20:05 95 I/O 08/01/17 08/01/17 08/01/17 08/02/17 08/02/17 08/02/17 07:00 15:00 23:00 07:00 15:00 23:00 Intake Total 480 ml 940 ml Output Total 800 ml 1350 ml 250 ml Balance -320 ml -1350 ml -250 ml 940 ml Intake Oral 480 ml 940 ml Output Urine Total 800 ml 1350 ml 250 ml # Voids 3 5 # Bowel Movements 1 0 Result Diagram: 08/02/17 0845 08/02/17 0845 Objective Remarks GENERAL: Well-nourished, well-developed patient. SKIN: Warm and dry. HEAD: Normocephalic. EYES: No scleral icterus. No injection or drainage. NECK: Supple, trachea midline. No JVD or lymphadenopathy. CARDIOVASCULAR: Regular rate and rhythm without murmurs, gallops, or rubs. RESPIRATORY: Breath sounds equal bilaterally. No accessory muscle use. GASTROINTESTINAL: Abdomen soft, non-tender, nondistended. EXTREMITIES: No cyanosis, or edema. NEUROLOGICAL: Awake, alert, and oriented x 3. Bilateral lower extremities have increased sensation and increase strength following antibiotic effect on swelling. A/P Problem List: (1) Osteomyelitis ICD Code: M86.9 - Osteomyelitis, unspecified (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 - Aneurysm of unspecified site (3) Cocaine abuse ICD Code: F14.10 - Cocaine abuse, uncomplicated (4) Hyperkalemia ICD Code: E87.5 - Hyperkalemia (5) Hyponatremia ICD Code: E87.1 - Hypo-osmolality and hyponatremia (6) CKD (chronic kidney disease) stage 3, GFR 30-59 ml/min ICD Code: N18.3 - Chronic kidney disease, stage 3 (moderate) Assessment and Plan Osteomyelitis L5 vertebra Discovery following back pain with increased weakness Altered sensorium and lower extremity weakness are now improving following antibiotic treatment Confirmed with CT and MRI of lumbar spine Continue with IV cefepime and vancomycin Patient underwent a CT-guided removal of fluid for culture as well as disc biopsy on 07/31/2017 Following leukocytosis trend Appreciate neurosurgery consult Appreciate infectious disease consult 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 Incidental finding, patient denies IV drug use Awaiting recommendations from vascular surgery, but likely not safe for surgery due to infection Appreciate vascular surgery consult h/o cocaine abuse Patient denies IV drug use Follow for signs of withdrawal Hyponatremia Improving, borderline at this point Continue to follow trend Chronic kidney disease Likely related to cocaine abuse Continue to follow trend DVT prophylaxis SCDs Discharge planning Once culture and sensitivities have returned patient can be transitioned to outpatient IV antibiotics Timing is likely for the middle of next week Wesley Rao MD August 02, 2017 17:20
[2017-08-02] MEDS: CALCIUM CARBONATE 500 MG CHEWABLE TAB CHEW PRN ×2 (20:23→23:38)
[2017-08-03] VITALS (10 sets, daily range): BP systolic 120–171; BP diastolic 71–102; PULSE 89–105; RESP 18–20; TEMP 97.3–98.6; O2SAT 94–98
[2017-08-03] MEDS: SODIUM CHLOR 0.9% 1000 ML INJ 1,000 ML IV SCH ×2 (04:22→18:23)
[2017-08-03] MEDS ORDERED: cloNIDine HCL 0.1 MG TAB PO ONE (04:45)
[2017-08-03] MEDS: oxyCODONE/ACETAMINOPHEN 10 MG/325 MG TAB PO PRN ×5 (05:07→22:47)
[2017-08-03] MEDS: SODIUM CHLORIDE 0.9% FLUSH 10 ML FLUSH IV FLUSH SCH ×2 (09:00→22:47)
[2017-08-03] MEDS: DOCUSATE SODIUM 50 MG/SENNA 8.6 MG TAB PO SCH ×2 (09:18→22:46)
[2017-08-03 14:14] LABS: BASOPHIL % 0.1 % (0.0-2.0); EOSINOPHIL # 0.3 TH/MM3 (0-0.4); EOSINOPHIL % 1.7 % (0.0-4.0); HEMATOCRIT 33.9 % (39.0-51.0); HEMOGLOBIN 10.7 GM/DL (13.0-17.0); LYMPH % 3.1 % (9.0-44.0); LYMPHOCYTE # 0.5 TH/MM3 (1.0-4.8); MEAN CELL VOLUME 90.8 FL (80.0-100.0); MEAN CORPUSCULAR HEMOGLOBIN 28.6 PG (27.0-34.0); MEAN CORPUSCULAR HGB CONC 31.5 % (32.0-36.0); MEAN PLATELET VOLUME 7.1 FL (7.0-11.0); MONO % 7.3 % (0.0-8.0); MONOCYTE # 1.2 TH/MM3 (0-0.9); NEUT % 87.8 % (16.0-70.0); PLATELET COUNT 206 TH/MM3 (150-450); RED BLOOD COUNT 3.73 MIL/MM3 (4.50-5.90); RED CELL DISTRIBUTION WIDTH 16.9 % (11.6-17.2)
[2017-08-03 14:28] LABS: BICARBONATE 19.7 MEQ/L (21.0-32.0); BLOOD UREA NITROGEN 48 MG/DL (7-18); CHLORIDE 106 MEQ/L (98-107); CREATININE 2.08 MG/DL (0.60-1.30); GLUCOSE,RANDOM 90 MG/DL (74-106); SODIUM (NA) 135 MEQ/L (136-145)
[2017-08-03] MEDS: CALCIUM CARBONATE 500 MG CHEWABLE TAB CHEW PRN ×2 (14:28→22:46)
--- NOTE | 2017-08-03 14:53 | HHI.PR ---
Subjective Remarks 57-year-old male who is undergoing IV antibiotic treatment for infections involving the L5 vertebrae body and a mycotic aneurysm in his left iliac artery. Today he is somewhat sedated compared to his baseline. Nurse denies that he received any excessive pain medication. He did have a visitor recently and has a history of drug abuse. Objective Vitals Vital Signs Date Time Temp Pulse Resp B/P (MAP) Pulse Ox O2 Delivery O2 Flow Rate FiO2 08/03/17 14:41 92 08/03/17 12:00 98.6 92 18 140/88 (105) 95 08/03/17 09:30 99 08/03/17 08:00 97.8 99 18 120/74 (89) 98 08/03/17 04:00 97.9 105 20 154/102 (119) 97 08/03/17 00:00 94 08/03/17 00:00 97.3 96 20 171/84 (113) 97 08/02/17 20:00 93 08/02/17 20:00 97.6 93 18 169/83 (111) 99 08/02/17 16:24 97.7 94 20 130/77 (94) 97 08/02/17 16:00 94 I/O 08/02/17 08/02/17 08/02/17 08/03/17 08/03/17 08/03/17 07:00 15:00 23:00 07:00 15:00 23:00 Intake Total 950 ml 2141 ml 220 ml Output Total 1350 ml 250 ml 300 ml 800 ml 350 ml Balance -1350 ml 700 ml 1841 ml -580 ml -350 ml Intake Oral 940 ml 220 ml IV Total 950 ml 1201 ml Output Urine Total 1350 ml 250 ml 300 ml 800 ml 350 ml # Voids 5 # Bowel Movements 1 0 0 Result Diagram: 08/03/17 1345 08/03/17 1345 Objective Remarks GENERAL: Well-nourished, well-developed patient. SKIN: Warm and dry. HEAD: Normocephalic. EYES: No scleral icterus. No injection or drainage. NECK: Supple, trachea midline. No JVD or lymphadenopathy. CARDIOVASCULAR: Regular rate and rhythm without murmurs, gallops, or rubs. RESPIRATORY: Breath sounds equal bilaterally. No accessory muscle use. GASTROINTESTINAL: Abdomen soft, non-tender, nondistended. EXTREMITIES: No cyanosis, or edema. NEUROLOGICAL: Awake, alert, and oriented x 3. Bilateral lower extremities have increased sensation and increase strength following antibiotic effect on swelling. A/P Problem List: (1) Osteomyelitis ICD Code: M86.9 - Osteomyelitis, unspecified (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 - Aneurysm of unspecified site (3) Cocaine abuse ICD Code: F14.10 - Cocaine abuse, uncomplicated (4) Hyperkalemia ICD Code: E87.5 - Hyperkalemia (5) Hyponatremia ICD Code: E87.1 - Hypo-osmolality and hyponatremia (6) CKD (chronic kidney disease) stage 3, GFR 30-59 ml/min ICD Code: N18.3 - Chronic kidney disease, stage 3 (moderate) Assessment and Plan Osteomyelitis L5 vertebra Discovery following back pain with increased weakness Confirmed with CT and MRI of lumbar spine Continue with IV cefepime and vancomycin Patient underwent a CT-guided removal of fluid for culture as well as disc biopsy on 07/31/2017 Altered sensorium and lower extremity weakness are now returning to baseline following antibiotic treatment Leukocytosis is slowly trending downward, C-reactive protein is also trending downward Appreciate neurosurgery consult Appreciate infectious disease consult 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 Incidental finding, patient denies IV drug use No surgery planned at this time, continue with IV antibiotics Appreciate vascular surgery consult Oversedation Patient did not receive an abnormal amount of pain medication Labs today did not show any increase in infection or any abnormalities that would explain stuporous affect He did have a visit earlier and has a history of drug abuse OB/psych urine screen ordered to investigate h/o cocaine abuse Patient denies IV drug use Follow for signs of withdrawal Hyponatremia Improving, borderline at this point Continue to follow trend Chronic kidney disease Likely related to cocaine abuse Continue to follow trend DVT prophylaxis SCDs Discharge planning Once culture and sensitivities have returned patient can be transitioned to outpatient IV antibiotics Timing is likely for the middle of next week Wesley Rao MD August 03, 2017 14:53
[2017-08-03] MEDS: cefTRIAXone INJ 2,000 MG in SODIUM CHLORIDE 0.9% INJ 100 ML IV SCH (16:37)
[2017-08-04] MEDS: SODIUM CHLOR 0.9% 1000 ML INJ 1,000 ML IV SCH ×3 (04:26→19:01)
[2017-08-04] MEDS: cefTRIAXone INJ 2,000 MG in SODIUM CHLORIDE 0.9% INJ 100 ML IV SCH ×2 (04:27→16:47)
[2017-08-04] MEDS: oxyCODONE/ACETAMINOPHEN 10 MG/325 MG TAB PO PRN ×5 (04:27→22:37)
[2017-08-04 05:00] VITALS: BP 166/108; PULSE 101; RESP 18; TEMP 97.9; O2SAT 100
[2017-08-04 06:45] VITALS: BP 126/99
[2017-08-04 08:00] VITALS: BP 181/118; PULSE 100; PULSE 103; RESP 16; TEMP 97.5; O2SAT 96
[2017-08-04 08:22] LABS: AUTOMATED NEUTROPHIL # 8.9 TH/MM3 (1.8-7.7); BASOPHIL % 0.4 % (0.0-2.0); EOSINOPHIL # 0.3 TH/MM3 (0-0.4); EOSINOPHIL % 2.8 % (0.0-4.0); HEMATOCRIT 32.3 % (39.0-51.0); HEMOGLOBIN 10.6 GM/DL (13.0-17.0); LYMPH % 5.3 % (9.0-44.0); LYMPHOCYTE # 0.6 TH/MM3 (1.0-4.8); MEAN CELL VOLUME 88.9 FL (80.0-100.0); MEAN CORPUSCULAR HEMOGLOBIN 29.2 PG (27.0-34.0); MEAN CORPUSCULAR HGB CONC 32.8 % (32.0-36.0); MEAN PLATELET VOLUME 7.3 FL (7.0-11.0); MONO % 10.1 % (0.0-8.0); MONOCYTE # 1.1 TH/MM3 (0-0.9); NEUT % 81.4 % (16.0-70.0); PLATELET COUNT 205 TH/MM3 (150-450); RED BLOOD COUNT 3.64 MIL/MM3 (4.50-5.90); RED CELL DISTRIBUTION WIDTH 16.7 % (11.6-17.2); WHITE BLOOD COUNT 10.9 TH/MM3 (4.0-11.0)
[2017-08-04] MEDS: DOCUSATE SODIUM 50 MG/SENNA 8.6 MG TAB PO SCH ×2 (08:40→22:35)
[2017-08-04 08:45] LABS: CALCIUM 8.7 MG/DL (8.5-10.1); CREATININE 1.9 MG/DL (0.60-1.30)
[2017-08-04 08:47] LABS: RANDOM VANCOMYCIN 18.8 COMMENT
[2017-08-04] MEDS: SODIUM CHLORIDE 0.9% FLUSH 10 ML FLUSH IV FLUSH SCH ×2 (08:49→22:36)
[2017-08-04 12:00] VITALS: BP 140/102; PULSE 97; RESP 17; TEMP 97.6; O2SAT 98
[2017-08-04] MEDS: CALCIUM CARBONATE 500 MG CHEWABLE TAB CHEW PRN (13:26)
[2017-08-04] MEDS ORDERED: VANCOMYCIN INJ 1,750 MG in SODIUM CHLORID 0.9% 500 ML INJ 500 ML IV ONE (14:00)
[2017-08-04 16:00] VITALS: BP 178/110; PULSE 103; PULSE 105; RESP 17; TEMP 97.9; O2SAT 95
--- NOTE | 2017-08-04 17:02 | HHI.PR ---
Subjective Remarks Patient is less sedated at this visit. He states that his pain is controlled although his pain meds were reduced. He understands we are waiting culture before we can determine discharge timing. Objective Vitals Vital Signs Date Time Temp Pulse Resp B/P (MAP) Pulse Ox O2 Delivery O2 Flow Rate FiO2 08/04/17 12:00 97.6 97 17 140/102 (115) 98 08/04/17 08:00 100 08/04/17 08:00 97.5 103 16 181/118 (139) 96 08/04/17 06:45 126/99 (108) 08/04/17 05:00 97.9 101 18 166/108 (127) 100 08/03/17 23:00 97.9 93 18 126/92 (103) 96 08/03/17 20:00 97.7 100 18 131/88 (102) 94 08/03/17 17:20 97 I/O 08/03/17 08/03/17 08/03/17 08/04/17 08/04/17 08/04/17 07:00 15:00 23:00 07:00 15:00 23:00 Intake Total 220 ml 480 ml 100 ml Output Total 800 ml 900 ml 500 ml 1100 ml Balance -580 ml -420 ml 100 ml -500 ml -1100 ml Intake Oral 220 ml 480 ml IV Total 100 ml Output Urine Total 800 ml 900 ml 500 ml 1100 ml # Voids 3 1 7 # Bowel Movements 0 0 Result Diagram: 08/04/17 0708 08/04/17 0708 Objective Remarks GENERAL: Well-nourished, well-developed patient. SKIN: Warm and dry. HEAD: Normocephalic. EYES: No scleral icterus. No injection or drainage. NECK: Supple, trachea midline. No JVD or lymphadenopathy. CARDIOVASCULAR: Regular rate and rhythm without murmurs, gallops, or rubs. RESPIRATORY: Breath sounds equal bilaterally. No accessory muscle use. GASTROINTESTINAL: Abdomen soft, non-tender, nondistended. EXTREMITIES: No cyanosis, or edema. NEUROLOGICAL: Awake, alert, and oriented x 3. Patient is ambulatory with a walker A/P Problem List: (1) Osteomyelitis ICD Code: M86.9 - Osteomyelitis, unspecified (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 - Aneurysm of unspecified site (3) Cocaine abuse ICD Code: F14.10 - Cocaine abuse, uncomplicated (4) Hyperkalemia ICD Code: E87.5 - Hyperkalemia (5) Hyponatremia ICD Code: E87.1 - Hypo-osmolality and hyponatremia (6) CKD (chronic kidney disease) stage 3, GFR 30-59 ml/min ICD Code: N18.3 - Chronic kidney disease, stage 3 (moderate) Assessment and Plan Osteomyelitis L5 vertebra Discovery following back pain with lower extremity increased weakness Confirmed with CT and MRI of lumbar spine Continue with IV cefepime and vancomycin Patient underwent a CT-guided removal of fluid for culture as well as disc biopsy on 07/31/2017 Altered sensorium and lower extremity weakness are now returning to baseline following antibiotic treatment Patient has history of fairly severe spinal stenosis which may need to be addressed in the future once infection is controlled Leukocytosis is slowly trending downward, C-reactive protein is also trending downward Blood culture grew out strep anginousis Fluid cultures grew out skin pooja Appreciate neurosurgery consult Appreciate infectious disease consult 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 Incidental finding, patient denies IV drug use No surgery planned at this time, continue with IV antibiotics Appreciate vascular surgery consult Oversedation Patient is more awake today after pain meds were reduced Psych drug screen urine is pending h/o cocaine abuse Patient denies IV drug use Follow for signs of withdrawal Hyponatremia Improving, borderline at this point Continue to follow trend Chronic kidney disease Likely related to cocaine abuse Continue to follow trend DVT prophylaxis SCDs Discharge planning Cultures and sensitivities from blood culture have returned, fluid cultures from vertebrae grew out skin pooja We will discuss timing of discharge with infectious disease Wesley Rao MD August 04, 2017 17:02
--- NOTE | 2017-08-04 17:42 | HHI.IDPN ---
Subjective Subjective Remarks Patient seen and examined with Dr. Goldstein Mr. Gee is a 57-year-old -[place] male with past medical history significant for rheumatoid arthritis on prednisone. From infectious disease standpoint his past medical history significant for prior history of strep epidural abscess as well as bacteremia treated with IV antibiotics and also needing L4 partial laminectomy in 2013 as well as an abscess on the skin of his back.. His past medical history is also significant for chronic kidney disease stage III, chronic back pain, cocaine abuse and tobacco abuse who presented to the emergency department with complaints of severe back pain. Patient is an extremely poor historian and reports that he has had a prior visit to the emergency room on July 23, 2017 with similar symptoms. An MRI of the L-spine did not show any evidence of infection patient was asked to follow-up with Dr. Pineda whom he has seen in the past. On arrival, BP 125/71, HR 86, O2 sat 100% RA, Afebrile. WBC 20.8. Na 128. K+ 5.5. Creatinine 2.84, previously 2.97 on 07/23/2017. INR 1.1. UA negative for UTI. 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 S/p Vanc/ Rocephin in ER. At the time of my evaluation patient is on a regular floor. Appears to be comfortable not in significant pain involving his extremities. Patient reports tingling numbness and extreme pain in his bilateral lower extremities right more than left. Patient denies any bowel bladder incontinence. Denies any decrease in perineal sensation. Infectious diseases consulted for evaluation and management of discitis and epidural abscess. Overnight events reviewed patient complaining of GERD symptoms No fevers No rash No diarrhea Able to flex his legs Denies any GI or dental issues prior to admission Reports being on steroids for rheum issues. Patient continues to adamantly deny IVDU. Antibiotics Ceftriaxone IV Lines Line sites with no e.o infection. Past Medical History reviewed. (Jeni Reed) Allergies: Coded Allergies: *MDRO Multi-Drug Resistant Organism (Verified Adverse Reaction, Unknown, ) MRSA (leg wound) - 10/2006 MRSA PCR screen positive - 10/2014 Objective . Vital Signs Date Time Temp Pulse Resp B/P (MAP) Pulse Ox O2 Delivery O2 Flow Rate FiO2 08/04/17 12:00 97.6 97 17 140/102 (115) 98 08/04/17 08:00 100 08/04/17 08:00 97.5 103 16 181/118 (139) 96 08/04/17 06:45 126/99 (108) 08/04/17 05:00 97.9 101 18 166/108 (127) 100 08/03/17 23:00 97.9 93 18 126/92 (103) 96 08/03/17 20:00 97.7 100 18 131/88 (102) 94 08/04/17 08/04/17 08/05/17 15:00 23:00 07:00 Output Total 1100 ml Balance -1100 ml Output Urine Total 1100 ml # Voids 7 . Laboratory Tests Test 08/03/17 13:45 08/04/17 07:08 White Blood Count 17.0 TH/MM3 10.9 TH/MM3 Red Blood Count 3.73 MIL/MM3 3.64 MIL/MM3 Hemoglobin 10.7 GM/DL 10.6 GM/DL Hematocrit 33.9 % 32.3 % Mean Corpuscular Volume 90.8 FL 88.9 FL Mean Corpuscular Hemoglobin 28.6 PG 29.2 PG Mean Corpuscular Hemoglobin Concent 31.5 % 32.8 % Red Cell Distribution Width 16.9 % 16.7 % Platelet Count 206 TH/MM3 205 TH/MM3 Mean Platelet Volume 7.1 FL 7.3 FL Neutrophils (%) (Auto) 87.8 % 81.4 % Lymphocytes (%) (Auto) 3.1 % 5.3 % Monocytes (%) (Auto) 7.3 % 10.1 % Eosinophils (%) (Auto) 1.7 % 2.8 % Basophils (%) (Auto) 0.1 % 0.4 % Neutrophils # (Auto) 15.0 TH/MM3 8.9 TH/MM3 Lymphocytes # (Auto) 0.5 TH/MM3 0.6 TH/MM3 Monocytes # (Auto) 1.2 TH/MM3 1.1 TH/MM3 Eosinophils # (Auto) 0.3 TH/MM3 0.3 TH/MM3 Basophils # (Auto) 0.0 TH/MM3 0.0 TH/MM3 CBC Comment DIFF FINAL DIFF FINAL Differential Comment Laboratory Tests Test 08/03/17 13:45 08/04/17 07:08 Blood Urea Nitrogen 48 MG/DL 40 MG/DL Creatinine 2.08 MG/DL 1.90 MG/DL Random Glucose 90 MG/DL 94 MG/DL Calcium Level 9.0 MG/DL 8.7 MG/DL Sodium Level 135 MEQ/L 134 MEQ/L Potassium Level 5.4 MEQ/L 5.4 MEQ/L Chloride Level 106 MEQ/L 108 MEQ/L Carbon Dioxide Level 19.7 MEQ/L 18.0 MEQ/L Anion Gap 9 MEQ/L 8 MEQ/L Lactic Acid Level 1.0 mmol/L C-Reactive Protein 22.00 MG/DL Estimat Glomerular Filtration Rate 45 ML/MIN Microbiology Date/Time Source Procedure Growth Status 08/02/17 11:45 Blood Peripheral Aerobic Blood Culture - Preliminary NO GROWTH IN 2 DAYS Resulted 08/02/17 11:45 Blood Peripheral Anaerobic Blood Culture - Preliminary NO GROWTH IN 2 DAYS Resulted 08/02/17 11:37 Blood Peripheral Aerobic Blood Culture - Preliminary NO GROWTH IN 2 DAYS Resulted 08/02/17 11:37 Blood Peripheral Anaerobic Blood Culture - Preliminary NO GROWTH IN 2 DAYS Resulted Imaging Last Impressions Needle Biopsy/Aspiration X-Ray 07/31/17 0000 Signed Impressions: Service Date/Time: Monday, July 31, 2017 13:29 - CONCLUSION: Uncomplicated needle biopsy of the L4/L5 disc space as above. Candelario Reina MD Lumbar Spine MRI 07/30/17 0000 Signed Impressions: Service Date/Time: Sunday, July 30, 2017 00:12 - CONCLUSION: 1. An apparent inflammatory phlegmon/abscess anterior to the L5 vertebral body with cortical irregularity along the anterior margin of L5 concerning for regional osteomyelitis. This appears to be confined to the prevertebral space. Area is incompletely evaluated without IV contrast. 2. Grade 1 anterolisthesis of L4 on 5 with bilateral facet hypertrophy at the same level results in moderately severe central spinal stenosis which is probably advanced enough to compromise central nerve roots. 3. 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 I believe the spinal canal is adequate at all levels except L4-5, however. 4. 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 No acute cardiopulmonary disease. Tanner Jones MD Abdomen/Pelvis CT 07/29/17 0000 Signed Impressions: Service Date/Time: Saturday, July 29, 2017 22:14 - CONCLUSION: 1. Significant new prevertebral soft tissue fullness and stranding centered at the L5 level. There is associated sclerosis and erosive changes in the anterior L5 vertebral body which appear unchanged from recent exams. Overall, findings are concerning for discitis and osteomyelitis. Consider repeat MRI examination for further evaluation. 2. 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 However, evaluation is significantly limited due to lack of IV contrast on this exam. This was not present on remote prior CT exam. A mycotic aneurysm cannot be entirely excluded. Contrast enhanced examination would be greatly beneficial in further evaluation. 3. Nodular appearing liver contour consistent with cirrhosis. 4. IVC filter in place. 5. Cholelithiasis. Tanner Jones MD Physical Exam GENERAL: This is a well-nourished, well-developed male patient , in no apparent distress. Awake and alert. SKIN: Warm and dry. BLE with dry skin. HEAD: Atraumatic. Normocephalic. No temporal or scalp tenderness. EYES: Pupils equal round and reactive. Extraocular motions intact. No scleral icterus. No injection or drainage. ENT: Nose without bleeding, purulent drainage or septal hematoma. Throat without erythema, tonsillar hypertrophy or exudate. Uvula midline. Airway patent. NECK: Trachea midline. Supple, nontender, no meningeal signs. CARDIOVASCULAR: HS audible. No murmur appreciated. RESPIRATORY: Clear to auscultation. Breath sounds equal bilaterally. No wheezes , rales, or rhonchi. GASTROINTESTINAL: Abdomen soft, non-tender, nondistended. MUSCULOSKELETAL: Extremities without clubbing or cyanosis. Trace BLE edema noted.No joint tenderness, effusion, or edema noted. No calf tenderness. NEUROLOGICAL: Awake and alert. Wiggles toes, Able to bend at knee and hip level with no pain against gravity. No focal neurologic findings. Normal speech. Psych cooperative and calm IV line sites with no e.o infection (Jeni Reed) Assessment & Plan Remarks Epidural abscess Discitis. -BCX neg x 2 days Strep Angionosus bacteremia. 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 Prior h.o Epidural abscess Cocaine but denies IVDA Rheumatoid arthritis on prednisone. Immune compromised host. Acute on chronic kidney disease Hyperkalemia Recs Continue Ceftriaxone IV 2D ECHO negative for vegetations. Follow blood cultures if persistently positive will need TR. Consult GI for possible EGD/colonoscopy given GERD like sxs and BCX positive for strept LacHydrin BLE BID Follow cultures Follow clinically. (Jeni Reed) Remarks The exam, history, and the medical decision-making described in the above note were completed with the assistance of the mid-level provider. I reviewed and agree with the findings presented. I attest that I had a [id number] encounter with the patient on the same day, and personally performed and documented my assessment and findings in the medical record. Complains of lenin LE swelling. Back pain better. Complains of severe heart burn On exam: trace pedal edema. Skin with scratch jernigan and dry skin. Abd: soft NT Recs: Continue Ceftriaxone IV Consult GI: EGD and Colonoscopy. Strep in blood with no other source. Follow cultures Follow clinically. (Latricia Goldstein MD) Jeni Reed August 04, 2017 17:42 Latricia Goldstein MD August 04, 2017 18:12
[2017-08-04] MEDS: cloNIDine HCL 0.1 MG TAB PO PRN (18:07)
[2017-08-04 20:00] VITALS: BP 155/106; PULSE 94; RESP 18; TEMP 97.7; O2SAT 98
[2017-08-04] MEDS: LACTIC ACID (AMMONIUM LACTATE) 12% LOTION 225 GM BTL TOPICAL SCH (21:00)
[2017-08-05] VITALS: BP 146/101; PULSE 99; RESP 18; TEMP 97.4; O2SAT 98
[2017-08-05] MEDS: cloNIDine HCL 0.1 MG TAB PO PRN
[2017-08-05] MEDS: HYDROmorphone HCL PF 0.5 MG/0.5 ML SYRINGE IV PUSH PRN ×3 (03:04→14:41)
[2017-08-05] MEDS: SODIUM CHLORIDE 0.9% FLUSH 10 ML FLUSH IV FLUSH PRN (03:04)
[2017-08-05 04:00] VITALS: BP 193/107; PULSE 108; RESP 20; TEMP 98.3; O2SAT 94
[2017-08-05] MEDS ORDERED: cloNIDine HCL 0.1 MG TAB PO ONE (04:45)
[2017-08-05] MEDS: cefTRIAXone INJ 2,000 MG in SODIUM CHLORIDE 0.9% INJ 100 ML IV SCH ×2 (05:11→17:06)
[2017-08-05] MEDS: oxyCODONE/ACETAMINOPHEN 10 MG/325 MG TAB PO PRN ×4 (06:39→20:30)
[2017-08-05 08:00] VITALS: BP 135/85; PULSE 103; PULSE 104; RESP 18; TEMP 98.2; O2SAT 97
[2017-08-05] MEDS: SODIUM CHLORIDE 0.9% FLUSH 10 ML FLUSH IV FLUSH SCH ×2 (09:00→21:00)
[2017-08-05] MEDS: DOCUSATE SODIUM 50 MG/SENNA 8.6 MG TAB PO SCH ×2 (09:04→21:00)
[2017-08-05 12:00] VITALS: BP 183/113; PULSE 106; RESP 18; TEMP 98.1; O2SAT 96
--- NOTE | 2017-08-05 12:26 | HHI.PR ---
Subjective Remarks Patient is comfortable, has no new complaints. Objective Vitals Vital Signs Date Time Temp Pulse Resp B/P (MAP) Pulse Ox O2 Delivery O2 Flow Rate FiO2 08/05/17 08:00 98.2 103 18 135/85 (102) 97 08/05/17 04:00 98.3 108 20 193/107 (135) 94 08/05/17 00:00 97.4 99 18 146/101 (116) 98 08/04/17 20:00 97.7 94 18 155/106 (122) 98 08/04/17 16:00 103 08/04/17 16:00 97.9 105 17 178/110 (132) 95 I/O 08/04/17 08/04/17 08/04/17 08/05/17 08/05/17 08/05/17 07:00 15:00 23:00 07:00 15:00 23:00 Intake Total 650 ml Output Total 500 ml 1100 ml 950 ml Balance -500 ml -1100 ml -300 ml Intake Oral 650 ml Output Urine Total 500 ml 1100 ml 950 ml # Voids 1 7 Result Diagram: 08/04/17 0708 08/04/17 0708 Objective Remarks GENERAL: Well-nourished, well-developed patient. SKIN: Warm and dry. HEAD: Normocephalic. EYES: No scleral icterus. No injection or drainage. NECK: Supple, trachea midline. No JVD or lymphadenopathy. CARDIOVASCULAR: Regular rate and rhythm without murmurs, gallops, or rubs. RESPIRATORY: Breath sounds equal bilaterally. No accessory muscle use. GASTROINTESTINAL: Abdomen soft, non-tender, nondistended. EXTREMITIES: No cyanosis, or edema. NEUROLOGICAL: Awake, alert, and oriented x 3. Patient is ambulatory with a walker A/P Problem List: (1) Osteomyelitis ICD Code: M86.9 - Osteomyelitis, unspecified (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 - Aneurysm of unspecified site (3) Cocaine abuse ICD Code: F14.10 - Cocaine abuse, uncomplicated (4) Hyperkalemia ICD Code: E87.5 - Hyperkalemia (5) Hyponatremia ICD Code: E87.1 - Hypo-osmolality and hyponatremia (6) CKD (chronic kidney disease) stage 3, GFR 30-59 ml/min ICD Code: N18.3 - Chronic kidney disease, stage 3 (moderate) Assessment and Plan Osteomyelitis L5 vertebra Discovery following back pain with lower extremity increased weakness Confirmed with CT and MRI of lumbar spine Continue with IV cefepime and vancomycin Patient underwent a CT-guided removal of fluid for culture as well as disc biopsy on 07/31/2017 Altered sensorium and lower extremity weakness are now returning to baseline following antibiotic treatment Patient has history of fairly severe spinal stenosis which may need to be addressed in the future once infection is controlled Leukocytosis is slowly trending downward, C-reactive protein is also trending downward Blood culture grew out strep anginousis Fluid cultures grew out skin pooja Appreciate neurosurgery consult Appreciate infectious disease consult 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 Incidental finding, patient denies IV drug use No surgery planned at this time, continue with IV antibiotics Appreciate vascular surgery consult Oversedation Patient has periods of oversedation that do not seem related to the timing of his pain medications ordered here Psych drug screen urine is pending h/o cocaine abuse Patient denies IV drug use No abnormal changes aside from periodic oversedation Hyponatremia Improving, borderline at this point Continue to follow trend Chronic kidney disease Likely related to cocaine abuse Continue to follow trend DVT prophylaxis SCDs Discharge planning Cultures and sensitivities from blood culture have returned, fluid cultures from vertebrae grew out skin pooja Plan for discharge in 1-2 days once infectious disease makes IV recommendations for home infusion Wesley Rao MD August 05, 2017 12:26
[2017-08-05] MEDS: LACTIC ACID (AMMONIUM LACTATE) 12% LOTION 225 GM BTL TOPICAL SCH ×2 (13:12→21:00)
[2017-08-05] MEDS: CALCIUM CARBONATE 500 MG CHEWABLE TAB CHEW PRN (13:49)
[2017-08-05] MEDS: LORazepam 2 MG/ML VIAL IV PUSH PRN ×2 (14:41→17:05)
--- NOTE | 2017-08-05 14:50 | PD.CONS ---
HPI History of Present Illness This is a 57 year old yo M with PMH significant for RA, HTN, HLD, CKD, chronic back pain, cocaine and tobacco abuse who presented to the ER on July 29 with complaints of back pain. Pt currently admitted to the hospital with diagnosis of osteomyelitis of his lumbar spine, ID is following and has consulted our service to evaluate patient for strep bacteremia. Pt also having GI complaints of epigastric pain, acid reflux, and heartburn that has been severe for the past few days. Denies nausea, vomiting, constipation, diarrhea, blood in his stool. Last colonoscopy was approx 10 years ago and he thinks they may have found some polyps. Unsure when his last EGD was and unsure of any abnormal findings. Denies ETOH, blood thinners, frequent NSAIDs. Pt denies illicit drug use, however, drug screen is positive for cocaine. Denies any significant family history of colon cancer. (Amy Velazquez) PFSH Past Medical History PMH: Rheumatoid Arthritis, HTN, Hyperlipidemia, CKD Stage III, Chronic Back Pain, Cocaine Abuse and Tobacco Abuse Past Surgical History PAST SURGICAL HISTORY: Lumbar Surgery (Amy Velazquez) Coded Allergies: *MDRO Multi-Drug Resistant Organism (Verified Adverse Reaction, Unknown, ) MRSA (leg wound) - 10/2006 MRSA PCR screen positive - 10/2014 Family History PAST FAMILY HISTORY: Reviewed. No h/o DM or CAD Social History PAST SOCIAL HISTORY: Negative for alcohol. Positive for tobacco and Cocaine. Denies IVDU. (Amy Velazquez) Review of Systems Gastrointestinal: COMPLAINS OF: Abdominal pain, Heartburn, DENIES: Black stools , Bloody stools, Constipation, Diarrhea, Nausea, Vomiting, Hematemesis (Amy Velazquez) GI Exam Vitals I&O Vital Signs Date Time Temp Pulse Resp B/P (MAP) Pulse Ox O2 Delivery O2 Flow Rate FiO2 08/05/17 12:00 98.1 106 18 183/113 (136) 96 08/05/17 08:00 98.2 103 18 135/85 (102) 97 08/05/17 04:00 98.3 108 20 193/107 (135) 94 08/05/17 00:00 97.4 99 18 146/101 (116) 98 08/04/17 20:00 97.7 94 18 155/106 (122) 98 08/04/17 16:00 103 08/04/17 16:00 97.9 105 17 178/110 (132) 95 I/O 08/04/17 08/04/17 08/04/17 08/05/17 08/05/17 08/05/17 07:00 15:00 23:00 07:00 15:00 23:00 Intake Total 650 ml Output Total 500 ml 1100 ml 950 ml Balance -500 ml -1100 ml -300 ml Intake Oral 650 ml Output Urine Total 500 ml 1100 ml 950 ml # Voids 1 7 Imaging Last Impressions Needle Biopsy/Aspiration X-Ray 07/31/17 0000 Signed Impressions: Service Date/Time: Monday, July 31, 2017 13:29 - CONCLUSION: Uncomplicated needle biopsy of the L4/L5 disc space as above. Candelario Reina MD Lumbar Spine MRI 07/30/17 0000 Signed Impressions: Service Date/Time: Sunday, July 30, 2017 00:12 - CONCLUSION: 1. An apparent inflammatory phlegmon/abscess anterior to the L5 vertebral body with cortical irregularity along the anterior margin of L5 concerning for regional osteomyelitis. This appears to be confined to the prevertebral space. Area is incompletely evaluated without IV contrast. 2. Grade 1 anterolisthesis of L4 on 5 with bilateral facet hypertrophy at the same level results in moderately severe central spinal stenosis which is probably advanced enough to compromise central nerve roots. 3. 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 I believe the spinal canal is adequate at all levels except L4-5, however. 4. 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 No acute cardiopulmonary disease. Tanner Jones MD Abdomen/Pelvis CT 07/29/17 0000 Signed Impressions: Service Date/Time: Saturday, July 29, 2017 22:14 - CONCLUSION: 1. Significant new prevertebral soft tissue fullness and stranding centered at the L5 level. There is associated sclerosis and erosive changes in the anterior L5 vertebral body which appear unchanged from recent exams. Overall, findings are concerning for discitis and osteomyelitis. Consider repeat MRI examination for further evaluation. 2. 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 However, evaluation is significantly limited due to lack of IV contrast on this exam. This was not present on remote prior CT exam. A mycotic aneurysm cannot be entirely excluded. Contrast enhanced examination would be greatly beneficial in further evaluation. 3. Nodular appearing liver contour consistent with cirrhosis. 4. IVC filter in place. 5. Cholelithiasis. Tanner Jones MD Laboratory Date/Time Source Procedure Growth Status 08/02/17 11:45 Blood Peripheral Aerobic Blood Culture - Preliminary NO GROWTH IN 3 DAYS Resulted 08/02/17 11:45 Blood Peripheral Anaerobic Blood Culture - Preliminary NO GROWTH IN 3 DAYS Resulted 07/31/17 13:38 Fluid Other Fungal Smear - Final NO FUNGAL ELEMENTS SEEN. Resulted 07/31/17 13:38 Fluid Other Fungal Culture Pending Resulted Physical Examination HEENT: Normocephalic; atraumatic CHEST: Even/unlabored CARDIAC: RRR ABDOMEN: Soft, nondistended, epigastric TTP, bowel sounds active MACHINE [employer]OP [employer]ER: No focal deficits; alert and oriented times three. (Amy Velazquez) Assessment and Plan Plan Assessment: - Blood cultures revealed strep bacteremia- ID requesting EGD and colonoscopy to further evaluate. States last colonoscopy approx 10 years ago and thinks they may have found some polyps. Unsure when his last EGD was or any findings. - Acid reflux/epigastric pain- pt reports increasing in severity for the past couple days. Does not have issues at home. Pt refusing any GI procedures at this time, states does not want this "sprung on him" I offered to answer any questions pt might have regarding procedures. He states "I have had them before I already know all about them". RN Priyank at bedside. Plan: At this time, pt refusing procedures Will follow up tomorrow to see if pt has changed his mind Add Pepcid If still refusing will sign off Pt has been seen and examined by myself and Dr. López and this note is written on her behalf (Amy Velazquez) Physician Comments agree with above (Lizzy López MD) Amy Velazquez August 05, 2017 14:50 Lizzy López MD August 05, 2017 17:21
[2017-08-05 16:00] VITALS: BP 162/111; PULSE 107; PULSE 109; RESP 18; TEMP 98.3; O2SAT 96
[2017-08-05 21:00] VITALS: PULSE 102
[2017-08-05] MEDS: FAMOTIDINE 20 MG TAB PO SCH (21:00)
[2017-08-05] MEDS: SODIUM CHLOR 0.9% 1000 ML INJ 1,000 ML IV SCH (23:19)
[2017-08-06] VITALS (8 sets, daily range): BP systolic 158–187; BP diastolic 91–119; PULSE 95–120; RESP 18–21; TEMP 97.8–98.6; O2SAT 92–95
[2017-08-06] MEDS: oxyCODONE/ACETAMINOPHEN 10 MG/325 MG TAB PO PRN ×2 (00:48→05:36)
[2017-08-06] MEDS: LACTULOSE SYRUP 20 GM/30 ML CUP PO PRN (01:05)
[2017-08-06] MEDS: LORazepam 2 MG/ML VIAL IV PUSH PRN ×4 (01:26→21:20)
[2017-08-06] MEDS: cefTRIAXone INJ 2,000 MG in SODIUM CHLORIDE 0.9% INJ 100 ML IV SCH ×2 (05:04→17:48)
[2017-08-06] MEDS: cloNIDine HCL 0.1 MG TAB PO PRN ×3 (05:35→23:44)
[2017-08-06] MEDS: HYDROmorphone HCL PF 0.5 MG/0.5 ML SYRINGE IV PUSH PRN ×2 (06:41→21:26)
[2017-08-06] MEDS ORDERED: cloNIDine HCL 0.1 MG TAB PO ONE (06:45)
[2017-08-06] MEDS: DOCUSATE SODIUM 50 MG/SENNA 8.6 MG TAB PO SCH ×2 (09:00→21:00)
[2017-08-06] MEDS: LACTIC ACID (AMMONIUM LACTATE) 12% LOTION 225 GM BTL TOPICAL SCH ×2 (09:00→21:00)
[2017-08-06] MEDS: FAMOTIDINE 20 MG TAB PO SCH ×2 (09:00→21:00)
[2017-08-06] MEDS: SODIUM CHLORIDE 0.9% FLUSH 10 ML FLUSH IV FLUSH SCH ×2 (09:00→19:18)
[2017-08-06] MEDS ORDERED: hydrALAZINE HCL 20 MG/ML VIAL IV PUSH PRN (10:00)
[2017-08-06] MEDS: SODIUM CHLOR 0.9% 1000 ML INJ 1,000 ML IV SCH (11:01)
--- NOTE | 2017-08-06 11:23 | HHI.NSPN ---
(Apolinar Argueta) History Chief Complaint: Low back pain (Apolinar Argueta) Interval History 07/30: 57-year-old gentleman with a history of lumbar osteomyelitis and discitis with abscess who underwent L4-[address] Felipe from neurosurgery. He has a chronic history of low back pain and more recent MRI scan shows degenerative L4-5 stenosis with facet hypertrophy and grade 1 spondylolisthesis along with some possible L5 anterior vertebral body osteomyelitis with the prevertebral retroperitoneal abscess. Patient was scheduled to follow-up with Dr. Felipe but returned to the emergency room for persistent back pain. Currently he is very sedated but does awaken and relates that his pain is controlled. He has been ambulating with a cane on a chronic basis. No bowel bladder incontinence or any lower extremity weakness noted. Dr. Gamez from neurosurgery coverage over the weekend was consulted and deferred further management to Dr. Felipe who is currently out of town. 08/06: When seen this morning the patient is asleep in bed. He does awaken to voice but is drowsy after that. He complains of pain to the lower back that does radiate down both lower extremities to the knees. He denies any numbness or tingling to the lower extremities. He does have low lumbar tenderness to palpation. He did not have any apparent lower extremity sensory deficits. His motor strength exam was incomplete due to patient not fully participating due to pain and drowsiness. (Apolinar Argueta) Exam Results 08/04/17 08/04/17 08/05/17 08/05/17 08/06/17 08/06/17 06:00 18:00 06:00 18:00 06:00 18:00 Intake Total 650 ml Output Total 500 ml 1100 ml 950 ml Balance -500 ml -1100 ml -300 ml Intake Oral 650 ml Output Urine Total 500 ml 1100 ml 950 ml # Voids 4 7 Vital Signs Date Time Temp Pulse Resp B/P (MAP) Pulse Ox O2 Delivery O2 Flow Rate FiO2 08/06/17 08:08 98.2 107 18 183/119 (140) 93 08/06/17 06:28 98.6 114 19 187/115 (139) 95 08/06/17 06:19 114 08/06/17 00:00 98.0 106 21 164/108 (126) 94 08/06/17 00:00 101 08/05/17 21:00 102 08/05/17 16:00 109 08/05/17 16:00 98.3 107 18 162/111 (128) 96 08/05/17 12:00 98.1 106 18 183/113 (136) 96 08/05/17 08:00 104 08/05/17 08:00 98.2 103 18 135/85 (102) 97 08/05/17 04:00 98.3 108 20 193/107 (135) 94 08/05/17 00:00 97.4 99 18 146/101 (116) 98 08/04/17 20:00 97.7 94 18 155/106 (122) 98 08/04/17 16:00 103 08/04/17 16:00 97.9 105 17 178/110 (132) 95 08/04/17 12:00 97.6 97 17 140/102 (115) 98 08/04/17 12:00 97 08/04/17 08:00 100 08/04/17 08:00 97.5 103 16 181/118 (139) 96 08/04/17 06:45 126/99 (108) 08/04/17 05:00 97.9 101 18 166/108 (127) 100 08/03/17 23:00 97.9 93 18 126/92 (103) 96 08/03/17 20:00 97.7 100 18 131/88 (102) 94 08/03/17 17:20 97 08/03/17 16:00 98.1 89 18 138/71 (93) 95 08/03/17 14:41 92 08/03/17 12:00 98.6 92 18 140/88 (105) 95 (Apolinar Argueta) Physical Examination GENERAL: Patient asleep but awakens to voice. Drowsy after that. Participates for a short period of time before falling back to sleep. No apparent distress. SKIN: No rashes, ecchymoses or lesions. Cool and dry. HEENT: Normocephalic, atraumatic. MUSCULOSKELETAL: HUANG spontaneously & purposefully. Right thigh minimally TTP. No evident clubbing or deformity. Thoracic spine NTTP. Inferior lumbar spine minimally TTP. NEUROLOGICAL: Asleep but awakens to voice. Drowsy after that and falls back asleep after interacting for a short period of time. Oriented to person, place & time. Speech clear & appropriate. Follows commands w/o difficulty. Sensation appears intact to light touch to the lower extremities. Muscle strength does appear to be 5/5 to the lower extremities but evaluation is limited due to the patient not fully participating due to pain to the lower back & falling back asleep. (Apolinar Argueta) Lab, Micro, Other Results Laboratory Tests Test 08/03/17 13:45 08/04/17 07:08 08/06/17 07:07 White Blood Count 17.0 TH/MM3 10.9 TH/MM3 Red Blood Count 3.73 MIL/MM3 3.64 MIL/MM3 Hemoglobin 10.7 GM/DL 10.6 GM/DL Hematocrit 33.9 % 32.3 % Mean Corpuscular Volume 90.8 FL 88.9 FL Mean Corpuscular Hemoglobin 28.6 PG 29.2 PG Mean Corpuscular Hemoglobin Concent 31.5 % 32.8 % Red Cell Distribution Width 16.9 % 16.7 % Platelet Count 206 TH/MM3 205 TH/MM3 Mean Platelet Volume 7.1 FL 7.3 FL Neutrophils (%) (Auto) 87.8 % 81.4 % Lymphocytes (%) (Auto) 3.1 % 5.3 % Monocytes (%) (Auto) 7.3 % 10.1 % Eosinophils (%) (Auto) 1.7 % 2.8 % Basophils (%) (Auto) 0.1 % 0.4 % Neutrophils # (Auto) 15.0 TH/MM3 8.9 TH/MM3 Lymphocytes # (Auto) 0.5 TH/MM3 0.6 TH/MM3 Monocytes # (Auto) 1.2 TH/MM3 1.1 TH/MM3 Eosinophils # (Auto) 0.3 TH/MM3 0.3 TH/MM3 Basophils # (Auto) 0.0 TH/MM3 0.0 TH/MM3 CBC Comment DIFF FINAL DIFF FINAL Differential Comment Blood Urea Nitrogen 48 MG/DL 40 MG/DL Creatinine 2.08 MG/DL 1.90 MG/DL Random Glucose 90 MG/DL 94 MG/DL Calcium Level 9.0 MG/DL 8.7 MG/DL Sodium Level 135 MEQ/L 134 MEQ/L Potassium Level 5.4 MEQ/L 5.4 MEQ/L Chloride Level 106 MEQ/L 108 MEQ/L Carbon Dioxide Level 19.7 MEQ/L 18.0 MEQ/L Anion Gap 9 MEQ/L 8 MEQ/L Lactic Acid Level 1.0 mmol/L C-Reactive Protein 22.00 MG/DL Estimat Glomerular Filtration Rate 45 ML/MIN Random Vancomycin Level 18.8 COMMENT 18.1 COMMENT (Apolinar Argueta) Medical Decision Making Impression and Plan Impression: 1, 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 History of chronic low back pain. 3. L4-5 moderate spinal stenosis w/grade 1 spondylolisthesis 4. Prevertebral/retroperitoneal abscess 5. Possible L5 anterior osteomyelitis w/elevated sed rate and white count The patient is drowsy when seen and his participation is limited because he falls back asleep. He appears to be neurologically intact w/o any true deficits. His participation is limited by pain to the lower back & falling back asleep when his muscle strength is tested. Blood cultures x2 () w/o growth x4 days, preliminary. Fluid culture () w/rare WBCs & no organisms seen on Gram stain final , culture w/moderate growth of normal skin pooja on final . Blood cultures x2 () positive for Streptococcus anginosus/milleri group on final . MRI lumbar spine demonstrated an apparent inflammatory phlegmon/ abscess anterior of the L5 vertebral body w/cortical irregularity along the anterior margin of L5 concerning for osteomyelitis. Grade 1 anterolisthesis of L4 on 5 w/bilateral facet hypertrophy at the same levels resulting in moderately severe central spinal canal stenosis possibly compromising the central nerve roots. 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 Plan: Primary management per Hospitalist. Antibiotics per Infectious Disease. No indication for neurosurgical intervention at present. Patient will eventually need to have an L4-5 discectomy & fusion w/ instrumentation but needs to have 6 wks of antibiotic therapy at a minimum first. Will intermittently follow. (Apolinar Argueta) Attending Statement The exam, history, and the medical decision-making described in the above note were completed with the assistance of the mid-level provider. I reviewed and agree with the findings presented. I attest that I had a [id number] encounter with the patient on the same day, and personally performed and documented my assessment and findings in the medical record. On my examination of 08/06/2017 the patient mildly lethargic, arouses to voice. Somewhat agitated. Says a few words in response to questions and follows some simple commands. No definite focal motor deficit. Pupils equal reactive. Conjugate extraocular movements. Patient notes reviewed. Concern regarding use of cocaine in the hospital. We will need to consider brain imaging if further decline in neurologic exam. No intervention planned at the present time in regards to the L4-5 changes , but likely will eventually require surgical intervention for stabilization. (Guero Felipe MD) Apolinar Argueta August 06, 2017 11:23 Guero Felipe MD August 07, 2017 19:55
[2017-08-06] MEDS ORDERED: VANCOMYCIN INJ 1,750 MG in SODIUM CHLORID 0.9% 500 ML INJ 500 ML IV ONE (13:00)
[2017-08-06 13:10] LABS: AUTOMATED NEUTROPHIL # 6.6 TH/MM3 (1.8-7.7); BASOPHIL # 0.1 TH/MM3 (0-0.2); BASOPHIL % 0.8 % (0.0-2.0); EOSINOPHIL # 0.3 TH/MM3 (0-0.4); EOSINOPHIL % 3.9 % (0.0-4.0); HEMATOCRIT 31.9 % (39.0-51.0); HEMOGLOBIN 10.3 GM/DL (13.0-17.0); LYMPH % 6.8 % (9.0-44.0); LYMPHOCYTE # 0.6 TH/MM3 (1.0-4.8); MEAN CELL VOLUME 88.3 FL (80.0-100.0); MEAN CORPUSCULAR HEMOGLOBIN 28.5 PG (27.0-34.0); MEAN CORPUSCULAR HGB CONC 32.3 % (32.0-36.0); MEAN PLATELET VOLUME 6.9 FL (7.0-11.0); MONO % 14.5 % (0.0-8.0); MONOCYTE # 1.3 TH/MM3 (0-0.9); PLATELET COUNT 172 TH/MM3 (150-450); RED BLOOD COUNT 3.61 MIL/MM3 (4.50-5.90); RED CELL DISTRIBUTION WIDTH 16.5 % (11.6-17.2); WHITE BLOOD COUNT 8.9 TH/MM3 (4.0-11.0)
[2017-08-06 13:53] LABS: ALBUMIN 1.9 GM/DL (3.4-5.0); ALKALINE PHOSPHATASE 194 U/L (45-117); ALT (GPT) 31 U/L (12-78); AST (GOT) 55 U/L (15-37); BICARBONATE 21.4 MEQ/L (21.0-32.0); BLOOD UREA NITROGEN 29 MG/DL (7-18); CALCIUM 8.6 MG/DL (8.5-10.1); CHLORIDE 112 MEQ/L (98-107); CREATININE 1.55 MG/DL (0.60-1.30); GLOMERULAR FILTRATION RATE 57 ML/MIN (>89); GLUCOSE,RANDOM 66 MG/DL (74-106); SODIUM (NA) 140 MEQ/L (136-145); TOTAL BILIRUBIN ADULT 0.5 MG/DL (0.2-1.0); TOTAL PROTEIN 8.3 GM/DL (6.4-8.2)
--- NOTE | 2017-08-06 13:58 | HHI.PR ---
Subjective Remarks Patient is sedated again today. Nurse reports that he has been verbally inappropriate (calling staff names). He has a history of cocaine abuse. Objective Vitals Vital Signs Date Time Temp Pulse Resp B/P (MAP) Pulse Ox O2 Delivery O2 Flow Rate FiO2 08/06/17 12:42 98.3 95 18 158/112 (127) 95 08/06/17 08:08 98.2 107 18 183/119 (140) 93 08/06/17 06:28 98.6 114 19 187/115 (139) 95 08/06/17 06:19 114 08/06/17 00:00 98.0 106 21 164/108 (126) 94 08/06/17 00:00 101 08/05/17 21:00 102 08/05/17 16:00 109 08/05/17 16:00 98.3 107 18 162/111 (128) 96 I/O 08/05/17 08/05/17 08/05/17 08/06/17 08/06/17 08/06/17 07:00 15:00 23:00 07:00 15:00 23:00 Intake Total 650 ml Output Total 950 ml Balance -300 ml Intake Oral 650 ml Output Urine Total 950 ml Result Diagram: 08/06/17 1208 08/04/17 0708 Objective Remarks GENERAL: Well-nourished, well-developed patient. SKIN: Warm and dry. HEAD: Normocephalic. EYES: No scleral icterus. No injection or drainage. NECK: Supple, trachea midline. No JVD or lymphadenopathy. CARDIOVASCULAR: Regular rate and rhythm without murmurs, gallops, or rubs. RESPIRATORY: Breath sounds equal bilaterally. No accessory muscle use. GASTROINTESTINAL: Abdomen soft, non-tender, nondistended. EXTREMITIES: No cyanosis, or edema. NEUROLOGICAL: Awake, alert, and oriented x 3. Patient is ambulatory with a walker A/P Problem List: (1) Osteomyelitis ICD Code: M86.9 - Osteomyelitis, unspecified (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 - Aneurysm of unspecified site (3) Cocaine abuse ICD Code: F14.10 - Cocaine abuse, uncomplicated (4) Hyperkalemia ICD Code: E87.5 - Hyperkalemia (5) Hyponatremia ICD Code: E87.1 - Hypo-osmolality and hyponatremia (6) CKD (chronic kidney disease) stage 3, GFR 30-59 ml/min ICD Code: N18.3 - Chronic kidney disease, stage 3 (moderate) Assessment and Plan Osteomyelitis L5 vertebra Discovery with MRI following back pain with lower extremity increased weakness Patient underwent a CT-guided removal of fluid for culture as well as disc biopsy on 07/31/2017 Altered sensorium and lower extremity weakness are now returning to baseline following antibiotic treatment Patient has history of fairly severe spinal stenosis which may need to be addressed in the future once infection is controlled Leukocytosis and C-reactive protein trending downward Blood culture grew out strep anginousis Fluid cultures grew out skin pooja Appreciate neurosurgery consult Appreciate infectious disease consult Altered mental status Patient is oversedated and acting inappropriate, confused He has a history of cocaine abuse, consider outside drugs versus withdrawal Associated symptoms include elevated blood pressure, tachycardia, oversedation, inappropriateness 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 Incidental finding, patient denies IV drug use No surgery planned at this time, continue with IV antibiotics Appreciate vascular surgery consult Oversedation Patient has periods of oversedation that do not seem related to the timing of his pain medications ordered here CBC is within normal limits, BMP is pending Psych drug screen urine pending Consider CT brain if urine screen is drug free h/o cocaine abuse Patient denies IV drug use Hyponatremia Improving, following trend Chronic kidney disease Likely related to cocaine abuse Continue to follow trend DVT prophylaxis SCDs Discharge planning Patient is oversedated and and appropriate. Discharge is delayed. Wesley Rao MD August 06, 2017 13:58
--- NOTE | 2017-08-06 14:48 | HHI.IDPN ---
Subjective Subjective Remarks Patient seen and examined with Dr. Goldstein Mr. Gee is a 57-year-old -[place] male with past medical history significant for rheumatoid arthritis on prednisone. From infectious disease standpoint his past medical history significant for prior history of strep epidural abscess as well as bacteremia treated with IV antibiotics and also needing L4 partial laminectomy in 2013 as well as an abscess on the skin of his back.. His past medical history is also significant for chronic kidney disease stage III, chronic back pain, cocaine abuse and tobacco abuse who presented to the emergency department with complaints of severe back pain. Patient is an extremely poor historian and reports that he has had a prior visit to the emergency room on July 23, 2017 with similar symptoms. An MRI of the L-spine did not show any evidence of infection patient was asked to follow-up with Dr. Pineda whom he has seen in the past. On arrival, BP 125/71, HR 86, O2 sat 100% RA, Afebrile. WBC 20.8. Na 128. K+ 5.5. Creatinine 2.84, previously 2.97 on 07/23/2017. INR 1.1. UA negative for UTI. 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 S/p Vanc/ Rocephin in ER. At the time of my evaluation patient is on a regular floor. Appears to be comfortable not in significant pain involving his extremities. Patient reports tingling numbness and extreme pain in his bilateral lower extremities right more than left. Patient denies any bowel bladder incontinence. Denies any decrease in perineal sensation. Infectious diseases consulted for evaluation and management of discitis and epidural abscess. Overnight events reviewed patient complaining of worsening back pain more lethargic today No fevers No rash No diarrhea WBC WNL K 6.0 Reports being on steroids for rheum issues. Patient continues to adamantly deny IVDU. Dw Dr. Rao, increased lethargy today UDS pending Antibiotics Ceftriaxone IV Current Medications Medications (Trade) Dose Ordered Sig/Manjit Route Start Time Stop Time Status Last Admin Pharmacy Profile Note 0 ml @ 0 mls/hr UNSCH OTHER 07/29/17 23:15 Sodium Chloride 1,000 ml @ 100 mls/hr Q10H IV 07/29/17 23:01 5/6/18 23:19 (NS Flush) 2 ml UNSCH PRN IV FLUSH 07/29/17 23:15 08/05/17 03:04 (NS Flush) 2 ml BID IV FLUSH 07/30/17 09:00 08/04/17 22:36 (Zofran Inj) 4 mg Q6H PRN IVP 07/29/17 23:15 (Tylenol) 650 mg Q6H PRN PO 07/29/17 23:15 (Emilie-Colace) 1 tab BID PO 07/30/17 09:00 08/05/17 09:04 (Milk Of Magnesia Liq) 30 ml Q12H PRN PO 07/29/17 23:15 (Senokot) 17.2 mg Q12H PRN PO 07/29/17 23:15 (Dulcolax Supp) 10 mg DAILY PRN RECTAL 07/29/17 23:15 (Lactulose Liq) 30 ml DAILY PRN PO 07/29/17 23:15 08/06/17 01:05 (Ativan Inj) 1 mg Q2H PRN IV PUSH 07/29/17 23:15 08/06/17 01:26 (Percocet 10-325 Mg) 1 tab Q4H PRN PO 08/01/17 09:00 Future Hold 08/06/17 05:36 (Dilaudid Pf Inj) 0.5 mg Q4H PRN IV PUSH 08/01/17 09:00 08/06/17 06:41 (Tums Chew) 500 mg Q2H PRN CHEW 08/02/17 19:30 08/05/17 13:49 Ceftriaxone Sodium 2000 mg/ Sodium Chloride 100 ml @ 200 mls/hr Q12H IV 08/03/17 17:00 08/06/17 05:04 (Catapres) 0.1 mg Q6H PRN PO 08/04/17 15:30 08/06/17 05:35 (Lac-Hydrin 12% Lotion) 1 applic BID TOPICAL 08/04/17 21:00 08/05/17 13:12 (Pepcid) 20 mg BID PO 08/05/17 21:00 Vancomycin HCl 1750 mg/Sodium Chloride 517.5 ml @ 257.5 mls/ hr ONCE ONCE IV 08/06/17 13:00 08/06/17 15:00 08/06/17 14:05 (Norvasc) 10 mg DAILY PO 08/06/17 11:00 08/06/17 12:35 (Vasotec Inj) 2.5 mg Q6H PRN IV PUSH 08/06/17 11:00 Lines Line sites with no e.o infection. Past Medical History reviewed. (Jeni Reed) Allergies: Coded Allergies: *MDRO Multi-Drug Resistant Organism (Verified Adverse Reaction, Unknown, ) MRSA (leg wound) - 10/2006 MRSA PCR screen positive - 10/2014 Objective . Vital Signs Date Time Temp Pulse Resp B/P (MAP) Pulse Ox O2 Delivery O2 Flow Rate FiO2 08/06/17 12:42 98.3 95 18 158/112 (127) 95 08/06/17 08:08 98.2 107 18 183/119 (140) 93 08/06/17 06:28 98.6 114 19 187/115 (139) 95 08/06/17 06:19 114 08/06/17 00:00 98.0 106 21 164/108 (126) 94 08/06/17 00:00 101 08/05/17 21:00 102 08/05/17 16:00 109 08/05/17 16:00 98.3 107 18 162/111 (128) 96 . Laboratory Tests Test 08/06/17 12:08 White Blood Count 8.9 TH/MM3 Red Blood Count 3.61 MIL/MM3 Hemoglobin 10.3 GM/DL Hematocrit 31.9 % Mean Corpuscular Volume 88.3 FL Mean Corpuscular Hemoglobin 28.5 PG Mean Corpuscular Hemoglobin Concent 32.3 % Red Cell Distribution Width 16.5 % Platelet Count 172 TH/MM3 Mean Platelet Volume 6.9 FL Neutrophils (%) (Auto) 74.0 % Lymphocytes (%) (Auto) 6.8 % Monocytes (%) (Auto) 14.5 % Eosinophils (%) (Auto) 3.9 % Basophils (%) (Auto) 0.8 % Neutrophils # (Auto) 6.6 TH/MM3 Lymphocytes # (Auto) 0.6 TH/MM3 Monocytes # (Auto) 1.3 TH/MM3 Eosinophils # (Auto) 0.3 TH/MM3 Basophils # (Auto) 0.1 TH/MM3 CBC Comment DIFF FINAL Differential Comment Laboratory Tests Test 08/06/17 12:08 Blood Urea Nitrogen 29 MG/DL Creatinine 1.55 MG/DL Random Glucose 66 MG/DL Total Protein 8.3 GM/DL Albumin 1.9 GM/DL Calcium Level 8.6 MG/DL Alkaline Phosphatase 194 U/L Aspartate Amino Transf (AST/SGOT) 55 U/L Alanine Aminotransferase (ALT/SGPT) 31 U/L Total Bilirubin 0.5 MG/DL Sodium Level 140 MEQ/L Potassium Level 6.0 MEQ/L Chloride Level 112 MEQ/L Carbon Dioxide Level 21.4 MEQ/L Anion Gap 7 MEQ/L Estimat Glomerular Filtration Rate 57 ML/MIN Imaging Last Impressions Needle Biopsy/Aspiration X-Ray 07/31/17 0000 Signed Impressions: Service Date/Time: Monday, July 31, 2017 13:29 - CONCLUSION: Uncomplicated needle biopsy of the L4/L5 disc space as above. Candelario Reina MD Lumbar Spine MRI 07/30/17 0000 Signed Impressions: Service Date/Time: Sunday, July 30, 2017 00:12 - CONCLUSION: 1. An apparent inflammatory phlegmon/abscess anterior to the L5 vertebral body with cortical irregularity along the anterior margin of L5 concerning for regional osteomyelitis. This appears to be confined to the prevertebral space. Area is incompletely evaluated without IV contrast. 2. Grade 1 anterolisthesis of L4 on 5 with bilateral facet hypertrophy at the same level results in moderately severe central spinal stenosis which is probably advanced enough to compromise central nerve roots. 3. 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 I believe the spinal canal is adequate at all levels except L4-5, however. 4. 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 No acute cardiopulmonary disease. Tanner Jones MD Abdomen/Pelvis CT 07/29/17 0000 Signed Impressions: Service Date/Time: Saturday, July 29, 2017 22:14 - CONCLUSION: 1. Significant new prevertebral soft tissue fullness and stranding centered at the L5 level. There is associated sclerosis and erosive changes in the anterior L5 vertebral body which appear unchanged from recent exams. Overall, findings are concerning for discitis and osteomyelitis. Consider repeat MRI examination for further evaluation. 2. 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 However, evaluation is significantly limited due to lack of IV contrast on this exam. This was not present on remote prior CT exam. A mycotic aneurysm cannot be entirely excluded. Contrast enhanced examination would be greatly beneficial in further evaluation. 3. Nodular appearing liver contour consistent with cirrhosis. 4. IVC filter in place. 5. Cholelithiasis. Tanner Jones MD Physical Exam GENERAL: This is a well-nourished, well-developed male patient , in no apparent distress. More lethargic today. SKIN: Warm and dry. BLE with dry skin. HEAD: Atraumatic. Normocephalic. No temporal or scalp tenderness. EYES: Pupils equal round and reactive. Extraocular motions intact. No scleral icterus. No injection or drainage. ENT: Nose without bleeding, purulent drainage or septal hematoma. Throat without erythema, tonsillar hypertrophy or exudate. Uvula midline. Airway patent. NECK: Trachea midline. Supple, nontender, no meningeal signs. CARDIOVASCULAR: HS audible. No murmur appreciated. RESPIRATORY: Clear to auscultation. Breath sounds equal bilaterally. No wheezes , rales, or rhonchi. GASTROINTESTINAL: Abdomen soft, non-tender, nondistended. MUSCULOSKELETAL: Extremities without clubbing or cyanosis. Trace BLE edema noted. Tenderness to palpation over lower lumbar area. No appreciable abscess or induration. No calf tenderness. NEUROLOGICAL: Awake and alert. Wiggles toes, Able to bend at knee and hip level with no pain against gravity. No focal neurologic findings. Normal speech. Psych cooperative and calm IV line sites with no e.o infection (Jeni Reed) Assessment & Plan Remarks ASSESSMENT: Epidural abscess Discitis. -BCX neg x 4 days -more lethargic today, c/o worsening back pain -2D ECHO negative for vegetations. Strep Angionosus bacteremia. -GI consulted for endoscopy - patient refused procedure 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 Prior h.o Epidural abscess Cocaine but denies IVDA Rheumatoid arthritis on prednisone. Immune compromised host. Acute on chronic kidney disease Hyperkalemia Recs Continue Ceftriaxone IV D/C Vancomycin Obtain MRI lumbar spine Follow up on UDS results Follow blood cultures if persistently positive will need TR. LacHydrin BLE BID Follow cultures Follow clinically. Peng Rao (Jeni Reed) Remarks The exam, history, and the medical decision-making described in the above note were completed with the assistance of the mid-level provider. I reviewed and agree with the findings presented. I attest that I had a [id number] encounter with the patient on the same day, and personally performed and documented my assessment and findings in the medical record. Appears more lethargic today. has concerns patient may be doing drugs in hospital. UDS ordered. More lethargic today. Complains of excruciating back pain in lumbar region On exam Tenderness in spine area Lethargic but arousable follows commands Compared to yday acute change in mentation A/P MRI L spine without contrast agree with UDS If new fevers order blood cultures Hold discharge as change in mentation dw (Latricia Goldstein MD) Jeni Reed August 06, 2017 14:48 Latricia Goldstein MD August 06, 2017 19:09
[2017-08-06] MEDS: ENALAPRILAT 2.5 MG/2 ML VIAL IV PUSH PRN (20:20)
[2017-08-07] VITALS: BP 181/113; PULSE 117; RESP 18; TEMP 98.2; O2SAT 94
[2017-08-07] MEDS: ENALAPRILAT 2.5 MG/2 ML VIAL IV PUSH PRN ×3 (01:58→22:20)
[2017-08-07] MEDS: LORazepam 2 MG/ML VIAL IV PUSH PRN ×4 (01:59→14:03)
[2017-08-07 03:59] VITALS: PULSE 116
[2017-08-07 04:00] VITALS: BP 168/76; PULSE 103; RESP 18; TEMP 98; O2SAT 94
[2017-08-07] MEDS: cefTRIAXone INJ 2,000 MG in SODIUM CHLORIDE 0.9% INJ 100 ML IV SCH ×2 (04:41→17:00)
[2017-08-07 06:07] VITALS: BP 158/114; PULSE 116; TEMP 97.4; O2SAT 96
[2017-08-07] MEDS: SODIUM CHLOR 0.9% 1000 ML INJ 1,000 ML IV SCH ×2 (07:01→17:01)
[2017-08-07 08:03] VITALS: BP 188/124; PULSE 114; RESP 18; TEMP 98; O2SAT 95
[2017-08-07] MEDS: LACTIC ACID (AMMONIUM LACTATE) 12% LOTION 225 GM BTL TOPICAL SCH ×2 (08:18→22:31)
[2017-08-07] MEDS: SODIUM CHLORIDE 0.9% FLUSH 10 ML FLUSH IV FLUSH SCH ×2 (08:18→22:31)
[2017-08-07] MEDS: DOCUSATE SODIUM 50 MG/SENNA 8.6 MG TAB PO SCH ×2 (08:18→22:20)
[2017-08-07] MEDS: FAMOTIDINE 20 MG TAB PO SCH ×2 (08:18→22:20)
--- NOTE | 2017-08-07 09:29 | HHI.PR ---
Subjective Remarks in no acute distress but somewhat lethargic but arousable. no fever. Objective Vitals Vital Signs Date Time Temp Pulse Resp B/P (MAP) Pulse Ox O2 Delivery O2 Flow Rate FiO2 08/07/17 08:03 98.0 114 18 188/124 (145) 95 08/07/17 06:07 97.4 116 158/114 (129) 96 08/07/17 04:00 98.0 103 18 168/76 (106) 94 08/07/17 03:59 116 08/07/17 00:00 98.2 117 18 181/113 (135) 94 08/06/17 21:00 120 08/06/17 20:00 97.8 114 18 181/108 (132) 92 08/06/17 16:00 98.6 98 18 160/91 (114) 95 08/06/17 12:42 98.3 95 18 158/112 (127) 95 I/O 08/06/17 08/06/17 08/06/17 08/07/17 08/07/17 08/07/17 06:59 14:59 22:59 06:59 14:59 22:59 Intake Total 480 ml Output Total 1150 ml 1800 ml Balance -670 ml -1800 ml Intake Oral 480 ml Output Urine Total 1150 ml 1800 ml Result Diagram: 08/06/17 1208 08/06/17 1208 Imaging Last Impressions Needle Biopsy/Aspiration X-Ray 07/31/17 0000 Signed Impressions: Service Date/Time: Monday, July 31, 2017 13:29 - CONCLUSION: Uncomplicated needle biopsy of the L4/L5 disc space as above. Candelario Reina MD Lumbar Spine MRI 07/30/17 0000 Signed Impressions: Service Date/Time: Sunday, July 30, 2017 00:12 - CONCLUSION: 1. An apparent inflammatory phlegmon/abscess anterior to the L5 vertebral body with cortical irregularity along the anterior margin of L5 concerning for regional osteomyelitis. This appears to be confined to the prevertebral space. Area is incompletely evaluated without IV contrast. 2. Grade 1 anterolisthesis of L4 on 5 with bilateral facet hypertrophy at the same level results in moderately severe central spinal stenosis which is probably advanced enough to compromise central nerve roots. 3. 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 I believe the spinal canal is adequate at all levels except L4-5, however. 4. 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 No acute cardiopulmonary disease. Tanner Jones MD Abdomen/Pelvis CT 07/29/17 0000 Signed Impressions: Service Date/Time: Saturday, July 29, 2017 22:14 - CONCLUSION: 1. Significant new prevertebral soft tissue fullness and stranding centered at the L5 level. There is associated sclerosis and erosive changes in the anterior L5 vertebral body which appear unchanged from recent exams. Overall, findings are concerning for discitis and osteomyelitis. Consider repeat MRI examination for further evaluation. 2. 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 However, evaluation is significantly limited due to lack of IV contrast on this exam. This was not present on remote prior CT exam. A mycotic aneurysm cannot be entirely excluded. Contrast enhanced examination would be greatly beneficial in further evaluation. 3. Nodular appearing liver contour consistent with cirrhosis. 4. IVC filter in place. 5. Cholelithiasis. Tanner Jones MD Objective Remarks GENERAL: This is a well-nourished, well-developed patient, in no apparent distress. CARDIOVASCULAR: Regular rate and regular rhythm without murmurs, gallops, or rubs. RESPIRATORY: Clear to auscultation. Breath sounds equal bilaterally. No wheezes , rales, or rhonchi. GASTROINTESTINAL: Abdomen soft, non-tender, nondistended. Normal, active bowel sounds MUSCULOSKELETAL: Extremities without clubbing, cyanosis, or edema. NEURO: lethargic but arousable. Medications and IVs Inpatient Medications Acetaminophen (Tylenol) 650 mg Q6H PRN PO FEVER/PAIN SCALE 1 TO 2; Start at 23:15 Amlodipine Besylate (Norvasc) 10 mg DAILY PO Last administered on 08/06/17at 12: 35; Start 08/06/17 at 11:00 Bisacodyl (Dulcolax Supp) 10 mg DAILY PRN RECTAL SEVERE CONSITIPATION/ IF NPO ; Start 07/29/17 at 23:15 Calcium Carbonate (Tums Chew) 500 mg Q2H PRN CHEW indigestion Last administered on 08/05/17 13:49; Start 08/02/17 at 19:30 Cefepime HCl 1000 mg/Sodium Chloride 100 ml @ 200 mls/hr Q12H IV Last administered on 08/01/17at 21:37; Start 07/30/17 at 09:00; Stop 08/02/17 at 06:53; Status DC Ceftriaxone Sodium 2000 mg/ Sodium Chloride 100 ml @ 200 mls/hr Q12H IV Last administered on 08/07/17at 04:41; Start 08/03/17 at 17:00 Clonidine (Catapres) 0.1 mg ONCE ONCE PO Last administered on 08/06/17at 06:45; Start 08/06/17 at 06:45; Stop 08/06/17 at 06:46; Status DC Dexamethasone Sodium Phosphate (Decadron Inj) 8 mg ONCE ONCE IV PUSH Last administered on 07/29/17at 20:42; Start 07/29/17 at 20:15; Stop 07/29/17 at 20:16 ; Status DC Enalaprilat (Vasotec Inj) 2.5 mg Q6H PRN IV PUSH SBP > 165 Last administered on 08/07/17at 08:03; Start 08/06/17 at 11:00 Famotidine (Pepcid) 20 mg BID PO ; Start 08/05/17 at 21:00 Hydralazine HCl (Apresoline Inj) 10 mg Q4H PRN IV PUSH SBP > 165; Start at 10:00; Stop 08/06/17 at 11:01; Status DC Hydromorphone HCl (Dilaudid Pf Inj) 0.5 mg Q4H PRN IV PUSH BREAKTHROUGH PAIN Last administered on 08/06/17at 21:26; Start 08/01/17 at 09:00 Lactic Acid (Lac-Hydrin 12% Lotion) 1 applic BID TOPICAL Last administered on at 13:12; Start 08/04/17 at 21:00 Lactulose (Lactulose Liq) 30 ml DAILY PRN PO SEVERE CONSITIPATION/ IF PO Last administered on 08/06/17at 01:05; Start 07/29/17 at 23:15 Lorazepam (Ativan Inj) 1 mg Q2H PRN IV PUSH AGITATION/WITHDRAWAL Last administered on 08/07/17at 08:17; Start 07/29/17 at 23:15 Magnesium Hydroxide (Milk Of Magnesia Liq) 30 ml Q12H PRN PO Mild constipation ; Start 07/29/17 at 23:15 Morphine Sulfate (Morphine Inj) 2 mg Q3H PRN IV PUSH Pain 6-10 Last administered on 08/01/17at 01:54; Start 07/30/17 at 20:45; Stop 08/01/17 at 08:56; Status DC Ondansetron HCl (Zofran Inj) 4 mg Q6H PRN IVP NAUSEA OR VOMITING; Start at 23:15 Oxycodone HCl (Roxicodone) 5 mg ONCE ONCE PO Last administered on 07/31/17at 22: 40; Start 07/31/17 at 22:15; Stop 07/31/17 at 22:18; Status DC Oxycodone/ Acetaminophen (Percocet 10-325 Mg) 1 tab Q4H PRN PO PAIN SCALE 4 TO 10 Last administered on 08/06/17at 05:36; Start 08/01/17 at 09:00; Status Future Hold Pharmacy Profile Note 0 ml @ 0 mls/hr UNSCH OTHER ; Start 07/29/17 at 23:15; Stop 08/06/17 at 14:40; Status DC Senna/Docusate Sodium (Emilie-Colace) 1 tab BID PO Last administered on 08/05/17at 09:04; Start 07/30/17 at 09:00 Sennosides (Senokot) 17.2 mg Q12H PRN PO Moderate constipation; Start 07/29/17 at 23:15 Sodium Chloride (NS Flush) 2 ml BID IV FLUSH Last administered on 08/07/17at 08: 18; Start 07/30/17 at 09:00 Vancomycin HCl 1000 mg/Sodium Chloride 250 ml @ 250 mls/hr ONCE ONCE IV Last administered on 07/30/17at 12:08; Start 07/30/17 at 12:00; Stop 07/30/17 at 12:59 ; Status DC Vancomycin HCl 1500 mg/Sodium Chloride 515 ml @ 257.5 mls/ hr ONCE ONCE IV Last administered on 07/31/17at 18:19; Start 07/31/17 at 18:00; Stop 07/31/17 at 19: 59; Status DC Vancomycin HCl 1750 mg/Sodium Chloride 517.5 ml @ 257.5 mls/ hr ONCE ONCE IV Last administered on 08/06/17at 14:05; Start 08/06/17 at 13:00; Stop 08/06/17 at 14: 40; Status DC Vancomycin HCl 2000 mg/Sodium Chloride 520 ml @ 250 mls/hr ONCE ONCE IV Last administered on 08/02/17at 14:50; Start 08/02/17 at 14:00; Stop 08/02/17 at 16:04; Status DC Vancomycin/Sodium Chloride 200 ml @ 200 mls/hr ONCE ONCE IV Last administered on 07/29/17at 23:55; Start 07/30/17 at 00:00; Stop 07/30/17 at 00:59 ; Status DC A/P Problem List: (1) Osteomyelitis ICD Code: M86.9 - Osteomyelitis, unspecified (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 - Aneurysm of unspecified site (3) Cocaine abuse ICD Code: F14.10 - Cocaine abuse, uncomplicated (4) Hyperkalemia ICD Code: E87.5 - Hyperkalemia (5) Hyponatremia ICD Code: E87.1 - Hypo-osmolality and hyponatremia (6) CKD (chronic kidney disease) stage 3, GFR 30-59 ml/min ICD Code: N18.3 - Chronic kidney disease, stage 3 (moderate) Assessment and Plan Osteomyelitis L5 vertebra Discovery with MRI following back pain with lower extremity increased weakness Patient underwent a CT-guided removal of fluid for culture as well as disc biopsy on 07/31/2017 Altered sensorium and lower extremity weakness are now returning to baseline following antibiotic treatment Patient has history of fairly severe spinal stenosis which may need to be addressed in the future once infection is controlled Leukocytosis and C-reactive protein trending downward Blood culture grew out strep anginousis Fluid cultures grew out skin pooja continue IV Rocephin MRI of the lumbar spine to be repeated. Appreciate neurosurgery consult Appreciate infectious disease consult Altered mental status Patient somewhat lethargic He has a history of cocaine abuse, consider outside drugs versus withdrawal Associated symptoms include elevated blood pressure, tachycardia, oversedation, inappropriateness repeated urine toxicology yesterday positive for cocaine. hold sedatives for now. will consult IR for LP ( wasn't able to reach the son). continue to monitor. 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 Hyponatremia Improving, following trend Chronic kidney disease Likely related to cocaine abuse Continue to follow trend BMP today pending. DVT prophylaxis SCDs Discharge Planning not ready for discharge. Mainor Grace MD August 07, 2017 09:29
[2017-08-07] MEDS: HYDROmorphone HCL PF 0.5 MG/0.5 ML SYRINGE IV PUSH PRN (14:04)
--- NOTE | 2017-08-07 15:00 | HHI.IDPN ---
Subjective Subjective Remarks Mr. Gee is a 57-year-old -[place] male with past medical history significant for rheumatoid arthritis on prednisone. From infectious disease standpoint his past medical history significant for prior history of strep epidural abscess as well as bacteremia treated with IV antibiotics and also needing L4 partial laminectomy in 2013 as well as an abscess on the skin of his back.. His past medical history is also significant for chronic kidney disease stage III, chronic back pain, cocaine abuse and tobacco abuse who presented to the emergency department with complaints of severe back pain. Patient is an extremely poor historian and reports that he has had a prior visit to the emergency room on July 23, 2017 with similar symptoms. An MRI of the L-spine did not show any evidence of infection patient was asked to follow-up with Dr. Pineda whom he has seen in the past. On arrival, BP 125/71, HR 86, O2 sat 100% RA, Afebrile. WBC 20.8. Na 128. K+ 5.5. Creatinine 2.84, previously 2.97 on 07/23/2017. INR 1.1. UA negative for UTI. 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 S/p Vanc/ Rocephin in ER. At the time of my evaluation patient is on a regular floor. Appears to be comfortable not in significant pain involving his extremities. Patient reports tingling numbness and extreme pain in his bilateral lower extremities right more than left. Patient denies any bowel bladder incontinence. Denies any decrease in perineal sensation. Infectious diseases consulted for evaluation and management of discitis and epidural abscess. Overnight events reviewed Discussed with RN patient has been refusing imaging as well as medications. Patient refuses to be touched and gets combative more lethargic today. Compared to patient's condition on Sunday there is no remarkable change in his mentation. Dr. Rao had reported to me yesterday that there was concern that patient was doing cocaine over the last few days since admission. A urine drug screen done yesterday was positive for cocaine. No fevers No rash No diarrhea Blood pressure on the higher sites. Has been urinating in the room on the floor. Antibiotics Ceftriaxone IV Lines Line sites with no e.o infection. Past Medical History reviewed. Allergies: Coded Allergies: *MDRO Multi-Drug Resistant Organism (Verified Adverse Reaction, Unknown, ) MRSA (leg wound) - 10/2006 MRSA PCR screen positive - 10/2014 Objective . Vital Signs Date Time Temp Pulse Resp B/P (MAP) Pulse Ox O2 Delivery O2 Flow Rate FiO2 08/07/17 08:03 98.0 114 18 188/124 (145) 95 08/07/17 06:07 97.4 116 158/114 (129) 96 08/07/17 04:00 98.0 103 18 168/76 (106) 94 08/07/17 03:59 116 08/07/17 00:00 98.2 117 18 181/113 (135) 94 08/06/17 21:00 120 08/06/17 20:00 97.8 114 18 181/108 (132) 92 08/06/17 16:00 98.6 98 18 160/91 (114) 95 08/07/17 08/07/17 08/08/17 15:00 23:00 07:00 # Voids 1 . Laboratory Tests Test 08/06/17 12:08 White Blood Count 8.9 TH/MM3 Red Blood Count 3.61 MIL/MM3 Hemoglobin 10.3 GM/DL Hematocrit 31.9 % Mean Corpuscular Volume 88.3 FL Mean Corpuscular Hemoglobin 28.5 PG Mean Corpuscular Hemoglobin Concent 32.3 % Red Cell Distribution Width 16.5 % Platelet Count 172 TH/MM3 Mean Platelet Volume 6.9 FL Neutrophils (%) (Auto) 74.0 % Lymphocytes (%) (Auto) 6.8 % Monocytes (%) (Auto) 14.5 % Eosinophils (%) (Auto) 3.9 % Basophils (%) (Auto) 0.8 % Neutrophils # (Auto) 6.6 TH/MM3 Lymphocytes # (Auto) 0.6 TH/MM3 Monocytes # (Auto) 1.3 TH/MM3 Eosinophils # (Auto) 0.3 TH/MM3 Basophils # (Auto) 0.1 TH/MM3 CBC Comment DIFF FINAL Differential Comment Laboratory Tests Test 08/06/17 12:08 Blood Urea Nitrogen 29 MG/DL Creatinine 1.55 MG/DL Random Glucose 66 MG/DL Total Protein 8.3 GM/DL Albumin 1.9 GM/DL Calcium Level 8.6 MG/DL Alkaline Phosphatase 194 U/L Aspartate Amino Transf (AST/SGOT) 55 U/L Alanine Aminotransferase (ALT/SGPT) 31 U/L Total Bilirubin 0.5 MG/DL Sodium Level 140 MEQ/L Potassium Level 6.0 MEQ/L Chloride Level 112 MEQ/L Carbon Dioxide Level 21.4 MEQ/L Anion Gap 7 MEQ/L Estimat Glomerular Filtration Rate 57 ML/MIN Imaging Last Impressions Needle Biopsy/Aspiration X-Ray 07/31/17 0000 Signed Impressions: Service Date/Time: Monday, July 31, 2017 13:29 - CONCLUSION: Uncomplicated needle biopsy of the L4/L5 disc space as above. Candelario Reina MD Lumbar Spine MRI 07/30/17 0000 Signed Impressions: Service Date/Time: Sunday, July 30, 2017 00:12 - CONCLUSION: 1. An apparent inflammatory phlegmon/abscess anterior to the L5 vertebral body with cortical irregularity along the anterior margin of L5 concerning for regional osteomyelitis. This appears to be confined to the prevertebral space. Area is incompletely evaluated without IV contrast. 2. Grade 1 anterolisthesis of L4 on 5 with bilateral facet hypertrophy at the same level results in moderately severe central spinal stenosis which is probably advanced enough to compromise central nerve roots. 3. 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 I believe the spinal canal is adequate at all levels except L4-5, however. 4. 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 No acute cardiopulmonary disease. Tanner Jones MD Abdomen/Pelvis CT 07/29/17 0000 Signed Impressions: Service Date/Time: Saturday, July 29, 2017 22:14 - CONCLUSION: 1. Significant new prevertebral soft tissue fullness and stranding centered at the L5 level. There is associated sclerosis and erosive changes in the anterior L5 vertebral body which appear unchanged from recent exams. Overall, findings are concerning for discitis and osteomyelitis. Consider repeat MRI examination for further evaluation. 2. 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 However, evaluation is significantly limited due to lack of IV contrast on this exam. This was not present on remote prior CT exam. A mycotic aneurysm cannot be entirely excluded. Contrast enhanced examination would be greatly beneficial in further evaluation. 3. Nodular appearing liver contour consistent with cirrhosis. 4. IVC filter in place. 5. Cholelithiasis. Tanner Jones MD Physical Exam GENERAL: Lethargic but arousable. No cardiopulmonary distress. SKIN: No obvious rash. HEAD: Atraumatic. Normocephalic. No temporal or scalp tenderness. EYES: No scleral icterus. No injection or drainage. ENT: No gross bleeding. And patient opened his mouth it appeared patent airway. NECK: Patient was moving his neck is in all 4 directions. Was flexing his neck CARDIOVASCULAR: Could not be performed RESPIRATORY: Could not be performed GASTROINTESTINAL: Upon trying to touch his abdomen was soft but beyond that he would not let me examine him MUSCULOSKELETAL: On gross examination patient's extremities with no major abnormal findings. NEUROLOGICAL: Extremely lethargic. Normal speech. No focal neurological deficits moving all 4 extremities. Would not let me touch him. Psych uncooperative. IV line sites with no e.o infection Assessment & Plan Remarks Strep bacteremia, probable endocarditis Epidural abscess Discitis. 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 Immune compromised host. Acute on chronic kidney disease Hyperkalemia Recs Continue ceftriaxone IV Chest x-ray MR of the brain to be done discussed with RN Discussed with RN to get in touch with the family members to contact CHARISMA Grace Discussed with concern for possible meningitis given persistent altered mental status as well as concern for possible withdrawal from cocaine Palliative care consult to address goals of therapy, healthcare surrogate Consult psychiatry to determine decision-making capacity and possible need for [place] act Discussed with Dr. Grace for LP may need to physicians to sign off is medical necessary if patient's family cannot be reached. In my opinion a lumbar puncture is medically necessary as it has been more than 24 hours since patient's last cocaine abuse is concern for septic emboli/ mycotic aneurysm of the brain just like he has a mycotic aneurysm in his thoracic area. Follow cultures Follow clinically. Dr. Moctezuma to cover for me August 08 - August 10 and other ID MD on the weekend. Latricia Goldstein MD August 07, 2017 15:00
--- NOTE | 2017-08-07 15:23 | RADRPT ---
EXAM DATE/TIME: 08/07/2017 14:51 [facility] COMPARISON: CHEST SINGLE AP, July 29, 2017, 22:25. INDICATIONS : Shortness of breath. MEDICAL HISTORY : Rheumatoid arthritis. Hypertension. Renal failure, chronic SURGICAL HISTORY : Rotator cuff, left. Bilateral knee surgery. Lumbar surgery. Bilateral wrist surgery ENCOUNTER: Subsequent ACUITY: 2 weeks PAIN SCORE: 2/10 LOCATION: Bilateral chest FINDINGS: A single view of the chest demonstrates stable elevated right hemidiaphragm. Tortuous aorta. No effus ion. No pneumothorax. Heart size within normal limits. CONCLUSION: 1. No acute findings. Elevated right hemidiaphragm. Tortuous aorta. Jack Travis MD on August 07, 2017 at 15:19 Board Certified Radiologist. This report was verified electronically.
[2017-08-07 20:00] VITALS: BP 178/116; PULSE 110; RESP 16; TEMP 98.6; O2SAT 94
[2017-08-07] MEDS: SODIUM CHLORIDE 0.9% FLUSH 10 ML FLUSH IV FLUSH PRN (22:20)
[2017-08-07] MEDS: ACETAMINOPHEN 325 MG TAB PO PRN (22:22)
[2017-08-08] VITALS: BP 168/80; PULSE 108; RESP 16; TEMP 98.4; O2SAT 95
[2017-08-08] MEDS: SODIUM CHLOR 0.9% 1000 ML INJ 1,000 ML IV SCH ×3 (03:01→21:13)
[2017-08-08] MEDS: cefTRIAXone INJ 2,000 MG in SODIUM CHLORIDE 0.9% INJ 100 ML IV SCH ×2 (05:46→17:01)
[2017-08-08 08:31] VITALS: BP 144/92; PULSE 108; RESP 20; TEMP 98.7; O2SAT 93
--- NOTE | 2017-08-08 08:39 | HHI.PR ---
Subjective Remarks in no acute distress. awake and is more alert today. no fever. complaining of back pain. refusing the blood tests. Objective Vitals Vital Signs Date Time Temp Pulse Resp B/P (MAP) Pulse Ox O2 Delivery O2 Flow Rate FiO2 08/08/17 00:00 98.4 108 16 168/80 (109) 95 08/07/17 20:00 98.6 110 16 178/116 (136) 94 I/O 08/07/17 08/07/17 08/07/17 08/08/17 08/08/17 08/08/17 07:00 15:00 23:00 07:00 15:00 23:00 Output Total 1800 ml 1000 ml Balance -1800 ml -1000 ml Output Urine Total 1800 ml 1000 ml # Voids 1 2 # Bowel Movements 2 Result Diagram: 08/06/17 1208 08/06/17 1208 Imaging Last Impressions Chest X-Ray 08/07/17 0000 Signed Impressions: Service Date/Time: Monday, August 07, 2017 14:51 - CONCLUSION: 1. No acute findings. Elevated right hemidiaphragm. Tortuous aorta. Jack Travis MD Needle Biopsy/Aspiration X-Ray 07/31/17 0000 Signed Impressions: Service Date/Time: Monday, July 31, 2017 13:29 - CONCLUSION: Uncomplicated needle biopsy of the L4/L5 disc space as above. Candelario Reina MD Lumbar Spine MRI 07/30/17 0000 Signed Impressions: Service Date/Time: Sunday, July 30, 2017 00:12 - CONCLUSION: 1. An apparent inflammatory phlegmon/abscess anterior to the L5 vertebral body with cortical irregularity along the anterior margin of L5 concerning for regional osteomyelitis. This appears to be confined to the prevertebral space. Area is incompletely evaluated without IV contrast. 2. Grade 1 anterolisthesis of L4 on 5 with bilateral facet hypertrophy at the same level results in moderately severe central spinal stenosis which is probably advanced enough to compromise central nerve roots. 3. 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 I believe the spinal canal is adequate at all levels except L4-5, however. 4. 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 Significant new prevertebral soft tissue fullness and stranding centered at the L5 level. There is associated sclerosis and erosive changes in the anterior L5 vertebral body which appear unchanged from recent exams. Overall, findings are concerning for discitis and osteomyelitis. Consider repeat MRI examination for further evaluation. 2. 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 However, evaluation is significantly limited due to lack of IV contrast on this exam. This was not present on remote prior CT exam. A mycotic aneurysm cannot be entirely excluded. Contrast enhanced examination would be greatly beneficial in further evaluation. 3. Nodular appearing liver contour consistent with cirrhosis. 4. IVC filter in place. 5. Cholelithiasis. Tanner Jones MD Objective Remarks GENERAL: This is a well-nourished, well-developed patient, in no apparent distress. CARDIOVASCULAR: Regular rate and regular rhythm without murmurs, gallops, or rubs. RESPIRATORY: Clear to auscultation. Breath sounds equal bilaterally. No wheezes , rales, or rhonchi. GASTROINTESTINAL: Abdomen soft, non-tender, nondistended. Normal, active bowel sounds MUSCULOSKELETAL: Extremities without clubbing, cyanosis, or edema. NEURO: lethargic but arousable. Medications and IVs Inpatient Medications Acetaminophen (Tylenol) 650 mg Q6H PRN PO FEVER/PAIN SCALE 1 TO 2 Last administered on 08/07/17 22:22; Start 07/29/17 at 23:15 Amlodipine Besylate (Norvasc) 10 mg DAILY PO Last administered on 08/06/17at 12: 35; Start 08/06/17 at 11:00 Bisacodyl (Dulcolax Supp) 10 mg DAILY PRN RECTAL SEVERE CONSITIPATION/ IF NPO ; Start 07/29/17 at 23:15 Calcium Carbonate (Tums Chew) 500 mg Q2H PRN CHEW indigestion Last administered on 08/05/17 13:49; Start 08/02/17 at 19:30 Cefepime HCl 1000 mg/Sodium Chloride 100 ml @ 200 mls/hr Q12H IV Last administered on 08/01/17 21:37; Start 07/30/17 at 09:00; Stop 08/02/17 at 06:53; Status DC Ceftriaxone Sodium 2000 mg/ Sodium Chloride 100 ml @ 200 mls/hr Q12H IV Last administered on 08/08/17 05:46; Start 08/03/17 at 17:00 Clonidine (Catapres) 0.1 mg ONCE ONCE PO Last administered on 08/06/17 06:45; Start 08/06/17 at 06:45; Stop 08/06/17 at 06:46; Status DC Dexamethasone Sodium Phosphate (Decadron Inj) 8 mg ONCE ONCE IV PUSH Last administered on 07/29/17at 20:42; Start 07/29/17 at 20:15; Stop 07/29/17 at 20:16 ; Status DC Enalaprilat (Vasotec Inj) 2.5 mg Q6H PRN IV PUSH SBP > 165 Last administered on 08/07/17 22:20; Start 08/06/17 at 11:00 Famotidine (Pepcid) 20 mg BID PO Last administered on 08/07/17 22:20; Start 08/05/17 at 21:00 Hydralazine HCl (Apresoline Inj) 10 mg Q4H PRN IV PUSH SBP > 165; Start at 10:00; Stop 08/06/17 at 11:01; Status DC Hydromorphone HCl (Dilaudid Pf Inj) 0.5 mg Q4H PRN IV PUSH BREAKTHROUGH PAIN Last administered on 08/07/17 14:04; Start 08/01/17 at 09:00 Lactic Acid (Lac-Hydrin 12% Lotion) 1 applic BID TOPICAL Last administered on 22:31; Start 08/04/17 at 21:00 Lactulose (Lactulose Liq) 30 ml DAILY PRN PO SEVERE CONSITIPATION/ IF PO Last administered on 08/06/17 01:05; Start 07/29/17 at 23:15 Lorazepam (Ativan Inj) 1 mg Q2H PRN IV PUSH AGITATION/WITHDRAWAL Last administered on 08/07/17 14:03; Start 07/29/17 at 23:15 Magnesium Hydroxide (Milk Of Magnesia Liq) 30 ml Q12H PRN PO Mild constipation ; Start 07/29/17 at 23:15 Morphine Sulfate (Morphine Inj) 2 mg Q3H PRN IV PUSH Pain 6-10 Last administered on 08/01/17at 01:54; Start 07/30/17 at 20:45; Stop 08/01/17 at 08:56; Status DC Ondansetron HCl (Zofran Inj) 4 mg Q6H PRN IVP NAUSEA OR VOMITING; Start at 23:15 Oxycodone HCl (Roxicodone) 5 mg ONCE ONCE PO Last administered on 07/31/17at 22: 40; Start 07/31/17 at 22:15; Stop 07/31/17 at 22:18; Status DC Oxycodone/ Acetaminophen (Percocet 10-325 Mg) 1 tab Q4H PRN PO PAIN SCALE 4 TO 10 Last administered on 08/06/17at 05:36; Start 08/01/17 at 09:00; Status Future Hold Pharmacy Profile Note 0 ml @ 0 mls/hr UNSCH OTHER ; Start 07/29/17 at 23:15; Stop 08/06/17 at 14:40; Status DC Senna/Docusate Sodium (Emilie-Colace) 1 tab BID PO Last administered on 08/07/17at 22:20; Start 07/30/17 at 09:00 Sennosides (Senokot) 17.2 mg Q12H PRN PO Moderate constipation; Start 07/29/17 at 23:15 Sodium Chloride (NS Flush) 2 ml BID IV FLUSH Last administered on 08/07/17at 22: 31; Start 07/30/17 at 09:00 Vancomycin HCl 1000 mg/Sodium Chloride 250 ml @ 250 mls/hr ONCE ONCE IV Last administered on 07/30/17at 12:08; Start 07/30/17 at 12:00; Stop 07/30/17 at 12:59 ; Status DC Vancomycin HCl 1500 mg/Sodium Chloride 515 ml @ 257.5 mls/ hr ONCE ONCE IV Last administered on 07/31/17at 18:19; Start 07/31/17 at 18:00; Stop 07/31/17 at 19: 59; Status DC Vancomycin HCl 1750 mg/Sodium Chloride 517.5 ml @ 257.5 mls/ hr ONCE ONCE IV Last administered on 08/06/17at 14:05; Start 08/06/17 at 13:00; Stop 5/7/18 at 14: 40; Status DC Vancomycin HCl 2000 mg/Sodium Chloride 520 ml @ 250 mls/hr ONCE ONCE IV Last administered on 08/02/17at 14:50; Start 08/02/17 at 14:00; Stop 08/02/17 at 16:04; Status DC Vancomycin/Sodium Chloride 200 ml @ 200 mls/hr ONCE ONCE IV Last administered on 07/29/17at 23:55; Start 07/30/17 at 00:00; Stop 07/30/17 at 00:59 ; Status DC A/P Problem List: (1) Osteomyelitis ICD Code: M86.9 - Osteomyelitis, unspecified (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 - Aneurysm of unspecified site (3) Cocaine abuse ICD Code: F14.10 - Cocaine abuse, uncomplicated (4) Hyperkalemia ICD Code: E87.5 - Hyperkalemia (5) Hyponatremia ICD Code: E87.1 - Hypo-osmolality and hyponatremia (6) CKD (chronic kidney disease) stage 3, GFR 30-59 ml/min ICD Code: N18.3 - Chronic kidney disease, stage 3 (moderate) Assessment and Plan Osteomyelitis L5 vertebra Discovery with MRI following back pain with lower extremity increased weakness Patient underwent a CT-guided removal of fluid for culture as well as disc biopsy on 07/31/2017 Altered sensorium and lower extremity weakness are now returning to baseline following antibiotic treatment Patient has history of fairly severe spinal stenosis which may need to be addressed in the future once infection is controlled Leukocytosis and C-reactive protein trending downward Blood culture grew out strep anginousis Fluid cultures grew out skin pooja continue IV Rocephin MRI of the lumbar spine to be repeated. Appreciate neurosurgery consult Appreciate infectious disease consult bacteremia with strep. continue antibiotics per ID. evaluated by GI for colonoscopy which the patient declined. Altered mental status- now improved. history of cocaine abuse. possible drug withdrawal vs meningitis- consulted IR for LP. ( wasn't able to reach the son). continue to monitor. psych consulted. 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 Discharge Planning not ready for discharge. Mainor Grace MD August 08, 2017 08:39
[2017-08-08] MEDS ORDERED: oxyCODONE/ACETAMINOPHEN 5 MG/325 MG TAB PO PRN (08:45)
[2017-08-08] MEDS: LACTIC ACID (AMMONIUM LACTATE) 12% LOTION 225 GM BTL TOPICAL SCH ×2 (08:57→21:13)
[2017-08-08] MEDS: DOCUSATE SODIUM 50 MG/SENNA 8.6 MG TAB PO SCH ×2 (08:57→21:12)
[2017-08-08] MEDS: FAMOTIDINE 20 MG TAB PO SCH ×2 (08:57→21:12)
[2017-08-08] MEDS: SODIUM CHLORIDE 0.9% FLUSH 10 ML FLUSH IV FLUSH SCH ×2 (09:00→21:13)
[2017-08-08] MEDS: HYDROmorphone HCL PF 0.5 MG/0.5 ML SYRINGE IV PUSH PRN ×3 (10:45→21:12)
--- NOTE | 2017-08-08 11:14 | PD.CONS ---
Consult Service Palliative Care Consult Requested By Dr. Tania Goldstein . Primary Care Physician [facility]- Dr. Caba Reason for Consultation a. To assist with evaluation and management of symptoms including: Pain, anxiety,debility b. To assist medical decision maker(s) with: better understanding of current medical conditions; weighing benefits/burdens of medical treatment options; making medical treatment decisions. (Erasmo Vieyra) HPI History of Present Illness Mr. Gee is a 57-year-old male with a past medical history significant for chronic back pain, lumbar osteomyelitis and discitis s/p L4-L5 laminectomy 2013 , rheumatoid arthritis, hyperlipidemia, chronic kidney stage III, cocaine abuse and tobacco abuse. Patient presented to the ER on 07/29/17 with complaints of severe back pain. Patient's recent ER visit was on 07/23/17 with complaints of back pain and MRI scan revealed degenerative L4-5 stenosis with facet hypertrophy and grade 1 spondylolisthesis along with some possible L5 anterior vertebral body osteomyelitis with the prevertebral retroperitoneal abscess. ER course: * Vital signs: BP 125/71, heart rate 86, O2 saturation 100% on room air, temperature 98.0F * Laboratory workup revealed WBC 20.8, hemoglobin 12.5, hematocrit 37.5, platelet count 223, sodium 128, potassium 5.5, BUN/creatinine 56/2.84, GFR 28, random glucose 73, total bilirubin 2.0, AST 63, ALT 24, alkaline phosphatase 197 , total protein 9.2, albumin 2.7, PT 11.4, INR 1.1 * Chest x-ray revealed no acute cardiopulmonary diseas. * Abdomen/pelvis CT revealed significant new prevertebral soft tissue fullness and stranding centered at the L5 level. There is associated sclerosis and erosive changes in the anterior L5 vertebral body, concerning for discitis and osteomyelitis. 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 Nodular appearing liver contour consistent with cirrhosis. IVC filter in place. Cholelithiasis. * Toxicology positive for opiates and cocaine * Urinalysis negative * Blood cultures grew Streptococcus Anginosus * Started on IV Rocephin and IV vancomycin * Patient admitted for further evaluation and treatment under the care of [facility] Neurosurgery Dr. Marie consulted on 07/30/17 for evaluation and management of lumbar osteomyelitis with retroperitoneal/prevertebral abscess, recommended CT- guided aspiration for further evaluation of retroperitoneal/prevertebral abscess , medical management of L5 osteomyelitis and use of a lumbar corset for back pain. Infectious disease Dr. Liz Goldstein consulted on 07/30/17 for evaluation and management of discitis and epidural abscess. Cardiovascular surgeon Dr. 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 GI Dr. López consulted on 08/05/17 evaluation and management of epigastric pain , acid reflux and abdominal pain. Patient refused EGD and colonoscopy. Patient has been refusing medications and diagnostic tests in the past few days and he has been combative during care and appeared lethargic on 08/07/17. There was concern of patient probably using cocaine and another tox screen on 08/06/17 was positive for cocaine. Psychiatry Dr. Allen consulted on 08/07/17 to evaluate and manage patient with acute delirium and to also determine capacity for medical decision. Patient seen by Dr. Allen this afternoon and has been deemed capacitated to make his own medical decisions. Palliative care consulted to assist with symptom management and establishing goals of care. Patient seen and examined in his room, getting ready to go down to interventional radiology for a lumbar puncture. Patient sleeping, easily arousable. Patient oriented to self,and place. Patient refused to answer most of my questions because he was in pain and did not want to talk now. Patient unable to rate pain but was able to mention location as lower back. Patient said he only wants to talk to me if i am going to get pain medication from bedside RN for him. Addressed code status, patient elected full code, he states , "ya`ll better do everything to keep me alive and yes connect me to a machine if you have to". Telephone call to patient's son Kalyan Gee Jr, no response-voice message with palliative contact information provided. Brief telephone conversation with patient's nephew Jennifer Kendrick (currently lives with patient), obtained past medical history and psychosocial history. Nephew reports that patient son Kalyan will be coming tomorrow to see patient. . Function/Cognitive Trajectory Patient lived at home with his nephew Jennifer Kendrick [phone]. Patient has been ambulating independently until the past few weeks where he needed a cane to ambulate at home. Per new in the past few weeks he could only ambulate short distances due to back pain. He is independent of all his ADLs. Patient is able to verbalize his own needs. . (Erasmo Vieyra) Review of Systems Constitutional: COMPLAINS OF: Weight loss, Change in appetite, Pain, DENIES: Fever Eyes: DENIES: Eye inflammation Ears, nose, mouth, throat: COMPLAINS OF: Running Nose, DENIES: Hearing loss, Nasal discharge Respiratory: DENIES: Cough, Wheezing, Shortness of breath Cardiovascular: DENIES: Chest pain, Dyspnea on Exertion Gastrointestinal: DENIES: Bloody stools, Constipation, Nausea, Vomiting Genitourinary: DENIES: Urinary incontinence Musculoskeletal: COMPLAINS OF: Stiffness, Back pain, Decreased range of motion (due to lower back pain) Hematologic/Lymphatics: DENIES: Bruising Neurologic: COMPLAINS OF: Poor Balance, DENIES: Headache Psychiatric: COMPLAINS OF: Confusion Other ROS: ROS obtained from EMR, patient and family members, . (Erasmo Vieyra) Past Family Social History Coded Allergies: *MDRO Multi-Drug Resistant Organism (Verified Adverse Reaction, Unknown, ) MRSA (leg wound) - 10/2006 MRSA PCR screen positive - 10/2014 Past Medical History Hypertension DVT Polysubstance abuse-cocaine Sarcoidosis of lung Chronic back pain Hyperlipidemia Rheumatoid Arthritis Chronic kidney disease stage III Hepatitis B Tobacco Abuse . Past Surgical History Bilateral wrist surgery Bilateral knee surgery Left shoulder surgery Lymph node biopsy from the groin and neck EGD Colonoscopy with polypectomy Lumbar [id number] laminectomy with evacuation of epidural abscess 02/05/14 . Reported Medications Flexeril (Cyclobenzaprine HCl) 5 Mg Tab 5 Mg PO TID PRN Hydrocodone-Acetaminophen 5-325 mg Tab 1 Tab PO Q4-6H PRN Ventolin Hfa 18 GM Inh (Albuterol Sulfate) 90 Mcg/Act Aer 2 Puff INH Q4H PRN Prednisone 10 Mg Tab 10 Mg PO DAILY Proair Hfa 8.5 GM Inh (Albuterol Sulfate) 90 Mcg/Act Aer 2 Puff INH Q4-6H PRN Catapres (Clonidine) 0.1 Mg Tab 0.1 Mg PO DAILY Norvasc (Amlodipine Besylate) 10 Mg Tab 10 Mg PO DAILY . Current Medications Medications (Trade) Dose Ordered Sig/Manjit Route Start Time Stop Time Status Last Admin Sodium Chloride 1,000 ml @ 100 mls/hr Q10H IV 07/29/17 23:01 08/08/17 08:58 (NS Flush) 2 ml UNSCH PRN IV FLUSH 07/29/17 23:15 08/07/17 22:20 (NS Flush) 2 ml BID IV FLUSH 07/30/17 09:00 08/07/17 22:31 (Zofran Inj) 4 mg Q6H PRN IVP 07/29/17 23:15 (Tylenol) 650 mg Q6H PRN PO 07/29/17 23:15 08/07/17 22:22 (Emilie-Colace) 1 tab BID PO 07/30/17 09:00 08/08/17 08:57 (Milk Of Magnesia Liq) 30 ml Q12H PRN PO 07/29/17 23:15 (Senokot) 17.2 mg Q12H PRN PO 07/29/17 23:15 (Dulcolax Supp) 10 mg DAILY PRN RECTAL 07/29/17 23:15 (Lactulose Liq) 30 ml DAILY PRN PO 07/29/17 23:15 08/06/17 01:05 (Ativan Inj) 1 mg Q2H PRN IV PUSH 07/29/17 23:15 08/07/17 14:03 (Percocet 10-325 Mg) 1 tab Q4H PRN PO 08/01/17 09:00 Future Hold 08/06/17 05:36 (Dilaudid Pf Inj) 0.5 mg Q4H PRN IV PUSH 08/01/17 09:00 08/07/17 14:04 (Tums Chew) 500 mg Q2H PRN CHEW 08/02/17 19:30 08/05/17 13:49 Ceftriaxone Sodium 2000 mg/ Sodium Chloride 100 ml @ 200 mls/hr Q12H IV 08/03/17 17:00 08/08/17 05:46 (Catapres) 0.1 mg Q6H PRN PO 5/5/18 15:30 08/06/17 23:44 (Lac-Hydrin 12% Lotion) 1 applic BID TOPICAL 08/04/17 21:00 08/08/17 08:57 (Pepcid) 20 mg BID PO 08/05/17 21:00 08/08/17 08:57 (Norvasc) 10 mg DAILY PO 08/06/17 11:00 08/08/17 08:57 (Vasotec Inj) 2.5 mg Q6H PRN IV PUSH 08/06/17 11:00 08/07/17 22:20 (Percocet 5-325 Mg) 1 tab Q6H PRN PO 08/08/17 08:45 Family History Father from heart disease Mother from kidney failure . Substance Use Tobacco: Current smoker Alcohol: Occasional EtOH use Prescription med abuse: Illicits: Polysubstance [id number]-[id number] IV drug use . Psychosocial History Patient was born and raised in [place]. Patient is single. Patient's highest level of education is high school. He is currently unemployed and disabled. Patient has 1 son Gerard Biggs Jr. He has been living with his nephew Mireille Rodriguez for the past 4 years. . Spiritual/Cultural Factors Patient is Holiness . (Erasmo Vieyra) Living Will: Never completed Health Care Surrogate: Never completed Durable Power of Auto Specialty Services Manager: Never completed Health Care Surrogate(s): Health care proxy Son-Kalyan Gee Jr-[phone] . Ethical and Legal Issues None identified at this time . (Erasmo Vieyra) Physical Exam Vital Signs Date Time Temp Pulse Resp B/P (MAP) Pulse Ox O2 Delivery O2 Flow Rate FiO2 08/08/17 08:31 98.7 108 20 144/92 (109) 93 08/08/17 00:00 98.4 108 16 168/80 (109) 95 08/07/17 20:00 98.6 110 16 178/116 (136) 94 08/08/17 08/09/17 19:00 07:00 Output Total 350 ml Balance -350 ml Output Urine Total 350 ml Exam CONSTITUTIONAL/GENERAL: This is an adequately nourished patient, in no apparent distress. TUBES/LINES/DRAINS:PIV SKIN: Dry. No jaundice, rashes, or lesions. No wounds seen anteriorly. Skin temperature appropriate. Not diaphoretic. HEAD: Atraumatic. Normocephalic. EYES: PERRLA. Extraocular motions intact. No scleral icterus. No injection or drainage. Fundi not examined. ENT: Hearing grossly normal. Nose without bleeding or purulent drainage. NECK: Trachea midline. Supple, nontender. No palpable thyroid enlargement or nodularity. CARDIOVASCULAR: Regular rate and rhythm without murmurs, gallops, or rubs. No JVD. Peripheral pulses symmetric. RESPIRATORY/CHEST: Symmetric, unlabored respirations. Clear to auscultation. Breath sounds equal bilaterally. No wheezes, rales, or rhonchi. GASTROINTESTINAL: Abdomen soft, non-tender, nondistended. No hepato-splenomegaly , or palpable masses. No guarding. Bowel sounds present. GENITOURINARY: Without palpable bladder distension. Mcdonald catheter in place. MUSCULOSKELETAL: Extremities without clubbing, cyanosis, or edema. No joint tenderness or effusion noted. No calf tenderness. No mottling or clubbing. LYMPHATICS: No palpable cervical or supraclavicular adenopathy. NEUROLOGICAL: Awake and alert. Motor and sensory grossly within normal limits. Follows commands. Moves all extremities. PSYCHIATRIC: No obvious anxiety/depression. no apparent hallucinations or other psychotic thought process. (Erasmo Vieyra) Diagnostic Tests Laboratory Laboratory Tests Test 08/06/17 07:07 08/06/17 12:08 08/06/17 15:27 Random Vancomycin Level 18.1 COMMENT White Blood Count 8.9 TH/MM3 (4.0-11.0) Red Blood Count 3.61 MIL/MM3 (4.50-5.90) Hemoglobin 10.3 GM/DL (13.0-17.0) Hematocrit 31.9 % (39.0-51.0) Mean Corpuscular Volume 88.3 FL (80.0-100.0) Mean Corpuscular Hemoglobin 28.5 PG (27.0-34.0) Mean Corpuscular Hemoglobin Concent 32.3 % (32.0-36.0) Red Cell Distribution Width 16.5 % (11.6-17.2) Platelet Count 172 TH/MM3 (150-450) Mean Platelet Volume 6.9 FL (7.0-11.0) Neutrophils (%) (Auto) 74.0 % (16.0-70.0) Lymphocytes (%) (Auto) 6.8 % (9.0-44.0) Monocytes (%) (Auto) 14.5 % (0.0-8.0) Eosinophils (%) (Auto) 3.9 % (0.0-4.0) Basophils (%) (Auto) 0.8 % (0.0-2.0) Neutrophils # (Auto) 6.6 TH/MM3 (1.8-7.7) Lymphocytes # (Auto) 0.6 TH/MM3 (1.0-4.8) Monocytes # (Auto) 1.3 TH/MM3 (0-0.9) Eosinophils # (Auto) 0.3 TH/MM3 (0-0.4) Basophils # (Auto) 0.1 TH/MM3 (0-0.2) CBC Comment DIFF FINAL Differential Comment Blood Urea Nitrogen 29 MG/DL (7-18) Creatinine 1.55 MG/DL (0.60-1.30) Random Glucose 66 MG/DL (74-106) Total Protein 8.3 GM/DL (6.4-8.2) Albumin 1.9 GM/DL (3.4-5.0) Calcium Level 8.6 MG/DL (8.5-10.1) Alkaline Phosphatase 194 U/L (45-117) Aspartate Amino Transf (AST/SGOT) 55 U/L (15-37) Alanine Aminotransferase (ALT/SGPT) 31 U/L (12-78) Total Bilirubin 0.5 MG/DL (0.2-1.0) Sodium Level 140 MEQ/L (136-145) Potassium Level 6.0 MEQ/L (3.5-5.1) Chloride Level 112 MEQ/L (98-107) Carbon Dioxide Level 21.4 MEQ/L (21.0-32.0) Anion Gap 7 MEQ/L (5-15) Estimat Glomerular Filtration Rate 57 ML/MIN (>89) Urine Opiates Screen NEG (NEG) Urine Barbiturates Screen NEG (NEG) Urine Amphetamines Screen NEG (NEG) Urine Benzodiazepines Screen NEG (NEG) Urine Cocaine Screen POS (NEG) Urine Cannabinoids Screen NEG (NEG) (Erasmo Vieyra) Result Diagram: 08/06/17 1208 08/06/17 1208 Procedures 07/31/17 needle biopsy of the L4/L5 disc space/aspiration x-ray (Erasmo Vieyra) Patient/Family Conference Family Conference Location: Bedside, Telephone Issues Discussed: * Palliative care role, purpose, approach * Additional medical, psychosocial, and spiritual history * Patients general health, functional status, and cognitive changes in the months leading up to the current hospitalization * Patient/family understanding of the current medical problems * Patient/family understanding of prognosis * Patients goals of care as best understood from advance directives and/or conversations and/or values * Current medical treatment options and benefits/burdens of those options * Likely scenarios comparing ongoing aggressive care with a transition to comfort measures only * Questions answered to the best of my ability * Palliative care contact information provided (Erasmo Vieyra) Assessment and Plan Disease Oriented Problem List: (1) Osteomyelitis (2) Cocaine abuse (3) Mycotic aneurysm (4) CKD (chronic kidney disease) stage 3, GFR 30-59 ml/min (5) Hypertension (6) Rheumatoid arthritis Symptom Scale: (1) Pain 0-10 Scale: Unable to quantify Comment: Patient came in complaining of lower back pain . (2) Anxiety Comment: Patient reported to psychiatry that he was feeling anxious . Pertinent Non-Medical Issues Psychosocial:Patient was born and raised in [place]. Patient is single. Patient's highest level of education is high school. He is currently unemployed and disabled. Patient has 1 son Gerard Biggs Jr. He has been living with his nephew Mireille Rodriguez for the past 4 years. Spiritual: Patient is Holiness Legal: Never completed advanced directive Ethical issues impacting care: None identified at this time . Important Contacts Son- Kalyan Gee Jr- [phone] [facility]/[phone] work Nephew- Mireille Rodriguez-[phone] (he has been living with patient for the past 4 years) Brother- Miles Gee [phone] . Prognosis Mr. Gee is a 57-year-old male with a past medical history significant for chronic back pain, lumbar osteomyelitis and discitis s/p L4-L5 laminectomy 2013 , rheumatoid arthritis, hyperlipidemia, chronic kidney stage III, cocaine abuse and tobacco abuse. Patient presented to the ER on 07/29/17 with complaints of severe back pain. Diagnostic tests revealed lumbar osteomyelitis with retroperitoneal/prevertebral abscess. Clinical course complicated with pain, anxiety and patient's of care and medication. Given ongoing comorbidities, patient remains at high risk for further complications, deterioration and decline. . Code Status: Full Code Plan PLAN: Legal decision maker: Patient has been deemed capacitated to participate in medical decision making by psychiatry on 08/08/17. In the event that he is incapacitated his adult son, Kalyan Gee Jr will serve as his healthcare proxy. Goals: Aggressive CODE STATUS: Full code Patient sleeping, easily arousable. Patient oriented to self,and place. Patient refused to answer most of my questions because he was in pain and did not want to talk now. Patient unable to rate pain but was able to mention location as lower back. Patient said he only wants to talk to me if i am going to get pain medication from bedside RN for him. Addressed code status, patient elected full code, he states, "ya`ll better do everything to keep me alive and yes connect me to a machine if you have to". SYMPTOMS: * Pain: Patient complaining of severe lower back pain. MRI lumbar revealed lumbar osteomyelitis with retroperitoneal/prevertebral abscess. Patient on antibiotics. Patient has oxycodone/acetaminophen 5/325 q 6hrs prn, hydromorphone 0.5 mg q. 4hrs prn. Patient has required x1 prn dose Hydromorphone and Oxycodone 10mg has been placed on hold.Continue to monitor for pain. * Anxiety: Patient reported psychiatric that he feels anxious. Low dose of clonazepam 0.5 mg twice daily he has been recommended by psychiatry. * Debility: Patient is being progressively getting weaker and not able to ambulate long distances at home due to severe back pain. According to family he has lost a few pounds in the past weeks. Ambulated at home with a cane. Physical therapy has been consulted, recommended PT at rehab. Palliative care will continue to follow the patient during hospital course as condition evolves, to assist patient/decision-maker with understanding of their medical conditions, weighing benefits/burdens of treatment options, for clarification of goals of treatment. Additionally will assist with any symptoms of palliative concern (Erasmo Vieyra) Thank you for the opportunity to participate in the care of Mr. Gee. (Erasmo Vieyra) Attestation To help prompt me to consider important information that might be impacting today's encounter and assessment, information from prior notes written by myself or my colleagues may have been "brought forward" into today's note. My signature on this note, however, is an attestation that I personally performed the exam, history, and/or decision-making noted today, and, unless otherwise indicated, the interactions with patient, family, and staff as well as the review of records all occurred today. I also attest that the listed assessment and stated plan reflect my best clinical judgment today based on the combination of historical information, prior notes, and today's exam/ interactions. When time spent is documented, it refers only to time spent today by the signer, or if indicated, combined time spent today by collaborating physician/nurse practitioner. . (Erasmo Vieyra) Collaborating MD Comments Chart reviewed. Case discussed with palliative care nurse practitioner. Above HISTOLOGY TEACHER note reviewed and I concur. . (Matt Toney MD) Erasmo Vieyra August 08, 2017 11:14 Matt Toney MD Sep 08, 2017 15:10
[2017-08-08 12:17] VITALS: BP 114/73; PULSE 106; RESP 20; TEMP 98.5; O2SAT 93
--- NOTE | 2017-08-08 12:48 | HHI.IDPN ---
Subjective Subjective Remarks ID COVERAGE Mr. Gee is a 57-year-old -[place] male with past medical history significant for rheumatoid arthritis on prednisone. From infectious disease standpoint his past medical history significant for prior history of strep epidural abscess as well as bacteremia treated with IV antibiotics and also needing L4 partial laminectomy in 2013 as well as an abscess on the skin of his back.. His past medical history is also significant for chronic kidney disease stage III, chronic back pain, cocaine abuse and tobacco abuse who presented to the emergency department with complaints of severe back pain. Patient is an extremely poor historian and reports that he has had a prior visit to the emergency room on July 23, 2017 with similar symptoms. An MRI of the L-spine did not show any evidence of infection patient was asked to follow-up with Dr. Pineda whom he has seen in the past. On arrival, BP 125/71, HR 86, O2 sat 100% RA, Afebrile. WBC 20.8. Na 128. K+ 5.5. Creatinine 2.84, previously 2.97 on 07/23/2017. INR 1.1. UA negative for UTI. 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 S/p Vanc/ Rocephin in ER. At the time of my evaluation patient is on a regular floor. Appears to be comfortable not in significant pain involving his extremities. Patient reports tingling numbness and extreme pain in his bilateral lower extremities right more than left. Patient denies any bowel bladder incontinence. Denies any decrease in perineal sensation. Infectious diseases consulted for evaluation and management of discitis and epidural abscess. Notes reviewed More awake today per notes Still refusing blood tests LP ordered not done yet Temps ok Currently resting, not cooperative when I try to awaken him and examine him Antibiotics Ceftriaxone IV Current Medications Medications (Trade) Dose Ordered Sig/Manjit Route Start Time Stop Time Status Last Admin Sodium Chloride 1,000 ml @ 100 mls/hr Q10H IV 07/29/17 23:01 08/08/17 08:58 (NS Flush) 2 ml UNSCH PRN IV FLUSH 07/29/17 23:15 08/07/17 22:20 (NS Flush) 2 ml BID IV FLUSH 07/30/17 09:00 5/8/18 22:31 (Zofran Inj) 4 mg Q6H PRN IVP 07/29/17 23:15 (Tylenol) 650 mg Q6H PRN PO 07/29/17 23:15 08/07/17 22:22 (Emilie-Colace) 1 tab BID PO 07/30/17 09:00 08/08/17 08:57 (Milk Of Magnesia Liq) 30 ml Q12H PRN PO 07/29/17 23:15 (Senokot) 17.2 mg Q12H PRN PO 07/29/17 23:15 (Dulcolax Supp) 10 mg DAILY PRN RECTAL 07/29/17 23:15 (Lactulose Liq) 30 ml DAILY PRN PO 07/29/17 23:15 08/06/17 01:05 (Ativan Inj) 1 mg Q2H PRN IV PUSH 07/29/17 23:15 08/07/17 14:03 (Percocet 10-325 Mg) 1 tab Q4H PRN PO 08/01/17 09:00 Future Hold 08/06/17 05:36 (Dilaudid Pf Inj) 0.5 mg Q4H PRN IV PUSH 08/01/17 09:00 08/08/17 10:45 (Tums Chew) 500 mg Q2H PRN CHEW 08/02/17 19:30 08/05/17 13:49 Ceftriaxone Sodium 2000 mg/ Sodium Chloride 100 ml @ 200 mls/hr Q12H IV 08/03/17 17:00 08/08/17 05:46 (Catapres) 0.1 mg Q6H PRN PO 08/04/17 15:30 08/06/17 23:44 (Lac-Hydrin 12% Lotion) 1 applic BID TOPICAL 08/04/17 21:00 08/08/17 08:57 (Pepcid) 20 mg BID PO 08/05/17 21:00 08/08/17 08:57 (Norvasc) 10 mg DAILY PO 08/06/17 11:00 08/08/17 08:57 (Vasotec Inj) 2.5 mg Q6H PRN IV PUSH 08/06/17 11:00 08/07/17 22:20 (Percocet 5-325 Mg) 1 tab Q6H PRN PO 08/08/17 08:45 Lines Line sites with no e.o infection. Past Medical History reviewed. Allergies: Coded Allergies: *MDRO Multi-Drug Resistant Organism (Verified Adverse Reaction, Unknown, ) MRSA (leg wound) - 10/2006 MRSA PCR screen positive - 10/2014 Objective . Vital Signs Date Time Temp Pulse Resp B/P (MAP) Pulse Ox O2 Delivery O2 Flow Rate FiO2 08/08/17 12:17 98.5 106 20 114/73 (87) 93 08/08/17 08:31 98.7 108 20 144/92 (109) 93 08/08/17 00:00 98.4 108 16 168/80 (109) 95 08/07/17 20:00 98.6 110 16 178/116 (136) 94 08/08/17 08/08/17 08/09/17 15:00 23:00 07:00 Output Total 350 ml Balance -350 ml Output Urine Total 350 ml Imaging Last Impressions Needle Biopsy/Aspiration X-Ray 07/31/17 0000 Signed Impressions: Service Date/Time: Monday, July 31, 2017 13:29 - CONCLUSION: Uncomplicated needle biopsy of the L4/L5 disc space as above. Candelario Reina MD Lumbar Spine MRI 07/30/17 0000 Signed Impressions: Service Date/Time: Sunday, July 30, 2017 00:12 - CONCLUSION: 1. An apparent inflammatory phlegmon/abscess anterior to the L5 vertebral body with cortical irregularity along the anterior margin of L5 concerning for regional osteomyelitis. This appears to be confined to the prevertebral space. Area is incompletely evaluated without IV contrast. 2. Grade 1 anterolisthesis of L4 on 5 with bilateral facet hypertrophy at the same level results in moderately severe central spinal stenosis which is probably advanced enough to compromise central nerve roots. 3. 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 I believe the spinal canal is adequate at all levels except L4-5, however. 4. 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 No acute cardiopulmonary disease. Tanner Jones MD Abdomen/Pelvis CT 07/29/17 0000 Signed Impressions: Service Date/Time: Saturday, July 29, 2017 22:14 - CONCLUSION: 1. Significant new prevertebral soft tissue fullness and stranding centered at the L5 level. There is associated sclerosis and erosive changes in the anterior L5 vertebral body which appear unchanged from recent exams. Overall, findings are concerning for discitis and osteomyelitis. Consider repeat MRI examination for further evaluation. 2. 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 However, evaluation is significantly limited due to lack of IV contrast on this exam. This was not present on remote prior CT exam. A mycotic aneurysm cannot be entirely excluded. Contrast enhanced examination would be greatly beneficial in further evaluation. 3. Nodular appearing liver contour consistent with cirrhosis. 4. IVC filter in place. 5. Cholelithiasis. Tanner Jones MD Physical Exam GENERAL: resting, di wake up when I stimulated, not in distress SKIN: No obvious rash. HEAD: Atraumatic. Normocephalic. No temporal or scalp tenderness. EYES: No scleral icterus. No injection or drainage. ENT: No gross bleeding. Moist mucosa NECK: Patient was moving his neck is in all 4 directions. Was flexing his neck CARDIOVASCULAR: Could not be performed RESPIRATORY: Clear posteriorly GASTROINTESTINAL: Not done MUSCULOSKELETAL: No pedal edema NEUROLOGICAL: Awakens easily Psych uncooperative. IV line sites with no e.o infection Assessment & Plan Remarks Strep bacteremia, probable endocarditis Epidural abscess Discitis. 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 Immune compromised host. Acute on chronic kidney disease Hyperkalemia Recs Continue ceftriaxone IV LP has been ordered, not done yet Psych consult pending Follow cultures Monitor progress Repeat lumbar spine MRI not done yet Difficult situation since patient has not been cooperative ADDENDUM: Repeat lumbar spone MRI showed progression of infection in lumbar Also has developed bilateral psoas abscess Will get neurosurgery consultation Aubrie Moctezuma MD August 08, 2017 12:48
--- NOTE | 2017-08-08 13:39 | PD.PSY.CON ---
Provisional Diagnosis Admission Date Jul 29, 2017 at 23:11 Velarde I. Adjustment disorder with mixed emotions and disturbance of current, cocaine and cannabis use disorder History of Present Illness Service Psychiatry Consult Requested By Medicine Reason for Consult Decision-making capacity Primary Care Physician Unknown HPI The patient is a 57-year-old -[place] man, domiciled with a friend in [place] [facility], single, unemployed, supported by [facility], with psychiatric history of polysubstance dependence including cocaine, cannabis, no previous psychiatric hospitalizations, he denies suicidal attempts, with a past medical history significant for chronic back pain, lumbar osteomyelitis and discitis s/p L4-L5 laminectomy 2013, rheumatoid arthritis, hyperlipidemia, chronic kidney stage III , Patient presented to the ER on 07/29/17 with complaints of severe back pain. Patient's recent ER visit was on 07/23/17 with complaints of back pain and MRI scan revealed degenerative L4-5 stenosis with facet hypertrophy and grade 1 spondylolisthesis along with some possible L5 anterior vertebral body osteomyelitis with the prevertebral retroperitoneal abscess. Patient has history of been difficult during hospitalization, previously signing AMA. Patient was consulted to psychiatry to address decision-making capacity to refuse medication. On psychiatric evaluation the patient is quite upset been consulted to psychiatry. Patient says that he is not here for psychiatric evaluation I am in a lot of pain. I was able to reassure and redirect the patient. Patient reports that he has been very upset because medical doctor and nurses do not give a shit had about me. Patient reports that he has been in a lot of pain is under medicated. He reports that if I am depressed is because a half pain, given medication for pain and I will be happy. He denies hopelessness, he denies anhedonia, he denies helplessness, denies suicidal and was ideation, he denies visual and auditory hallucination. He is fully oriented 3, with no attention deficit, without fluctuation of consciousness. He does report difficulty sleeping at night due to the pain and also anxiety. The patient seems to be aware of the reason of his hospitalization, he is able to express a fair understanding and appreciation of medical conditions. He says that he has not been refusing medication, I do not want to be stick with needles when I have so much pain in my back Review of Systems Constitutional: DENIES: Diaphoretic episodes, Fatigue, Fever, Weight gain, Weight loss, Chills, Dizziness, Change in appetite, Night Sweats Endocrine: DENIES: Heat/cold intolerance, Polydipsia, Polyuria, Polyphagia Eyes: DENIES: Blurred vision, Diplopia, Eye inflammation, Eye pain, Vision loss , Photosensitivity, Double Vision Ears, nose, mouth, throat: DENIES: Tinnitus, Hearing loss, Vertigo, Nasal discharge, Oral lesions, Throat pain, Hoarseness, Ear Pain, Running Nose, Epistaxis, Sinus Pain, Toothache, Odynophagia Respiratory: DENIES: Apneas, Cough, Snoring, Wheezing, Hemoptysis, Sputum production, Shortness of breath Cardiovascular: DENIES: Chest pain, Palpitations, Syncope, Dyspnea on Exertion , PND, Lower Extremity Edema, Orthopnea, Claudication Gastrointestinal: DENIES: Abdominal pain, Black stools, Bloody stools, Constipation, Diarrhea, Nausea, Vomiting, Difficulty Swallowing, Anorexia Musculoskeletal: COMPLAINS OF: Joint pain, Back pain, Neck pain Integumentary: DENIES: Abnormal pigmentation, Nail changes, Pruritus, Rash Hematologic/lymphatic: DENIES: Bruising, Lymphadenopathy Immunologic/allergic: DENIES: Eczema, Urticaria Neurologic: DENIES: Abnormal gait, Headache, Localized weakness, Paresthesias, Seizures, Speech Problems, Tremor, Poor Balance Psychiatric: DENIES: Anxiety, Confusion, Mood changes, Depression, Hallucinations, Agitation, Suicidal Ideation, Homicidal Ideation, Delusions Past Family Social History Coded Allergies: *MDRO Multi-Drug Resistant Organism (Verified Adverse Reaction, Unknown, ) MRSA (leg wound) - 10/2006 MRSA PCR screen positive - 10/2014 Active Scripts Cyclobenzaprine (Flexeril) 5 Mg Tab, 5 MG PO TID Y for SPASM, #15 TAB 0 Refills Prov:Consuelo Dowling MD 07/24/17 Hydrocodone-Acetaminophen (Hydrocodone-Acetaminophen) 5-325 mg Tab, 1 TAB PO Q4- 6H Y for PAIN, #16 TAB 0 Refills Prov:Consuelo Dowling MD 07/24/17 Albuterol 18 GM Inh (Ventolin Hfa 18 GM Inh) 90 Mcg/Act Aer, 2 PUFF INH Q4H Y for SHORTNESS OF BREATH, #1 INHALER 0 Refills Prov:Patricia Kennedy 03/05/17 Prednisone (Prednisone) 10 Mg Tab, 10 MG PO DAILY, #30 TAB 0 Refills Prov:Tiffanie Mims INSTRUMENT INSPECTOR 01/04/17 Albuterol 8.5 GM Inh (Proair Hfa 8.5 GM Inh) 90 Mcg/Act Aer, 2 PUFF INH Q4-6H Y for SHORTNESS OF BREATH, #1 INHALER 4 Refills 108 mcg/actuation Prov:Timmy Jacobs INSTRUMENT INSPECTOR 11/28/16 Clonidine (Catapres) 0.1 Mg Tab, 0.1 MG PO DAILY for Blood Pressure Management, #60 TAB 3 Refills Prov:Timmy Jacobs INSTRUMENT INSPECTOR 08/08/16 Reported Medications Amlodipine (Norvasc) 10 Mg Tab, 10 MG PO DAILY for Blood Pressure Management, # 30 TAB 0 Refills 03/16/17 Current Medications Medications (Trade) Dose Ordered Sig/Manjit Route Start Time Stop Time Status Last Admin Sodium Chloride 1,000 ml @ 100 mls/hr Q10H IV 07/29/17 23:01 08/08/17 08:58 (NS Flush) 2 ml UNSCH PRN IV FLUSH 07/29/17 23:15 08/07/17 22:20 (NS Flush) 2 ml BID IV FLUSH 07/30/17 09:00 08/07/17 22:31 (Zofran Inj) 4 mg Q6H PRN IVP 07/29/17 23:15 (Tylenol) 650 mg Q6H PRN PO 07/29/17 23:15 08/07/17 22:22 (Emilie-Colace) 1 tab BID PO 07/30/17 09:00 08/08/17 08:57 (Milk Of Magnesia Liq) 30 ml Q12H PRN PO 07/29/17 23:15 (Senokot) 17.2 mg Q12H PRN PO 07/29/17 23:15 (Dulcolax Supp) 10 mg DAILY PRN RECTAL 07/29/17 23:15 (Lactulose Liq) 30 ml DAILY PRN PO 07/29/17 23:15 08/06/17 01:05 (Ativan Inj) 1 mg Q2H PRN IV PUSH 07/29/17 23:15 08/07/17 14:03 (Percocet 10-325 Mg) 1 tab Q4H PRN PO 08/01/17 09:00 Future Hold 08/06/17 05:36 (Dilaudid Pf Inj) 0.5 mg Q4H PRN IV PUSH 08/01/17 09:00 08/08/17 10:45 (Tums Chew) 500 mg Q2H PRN CHEW 08/02/17 19:30 08/05/17 13:49 Ceftriaxone Sodium 2000 mg/ Sodium Chloride 100 ml @ 200 mls/hr Q12H IV 08/03/17 17:00 08/08/17 05:46 (Catapres) 0.1 mg Q6H PRN PO 08/04/17 15:30 08/06/17 23:44 (Lac-Hydrin 12% Lotion) 1 applic BID TOPICAL 08/04/17 21:00 08/08/17 08:57 (Pepcid) 20 mg BID PO 08/05/17 21:00 08/08/17 08:57 (Norvasc) 10 mg DAILY PO 08/06/17 11:00 08/08/17 08:57 (Vasotec Inj) 2.5 mg Q6H PRN IV PUSH 08/06/17 11:00 08/07/17 22:20 (Percocet 5-325 Mg) 1 tab Q6H PRN PO 08/08/17 08:45 Family Psych History No family psychiatric history Social History Patient was born and raised in [place], he lives in [place] with a friend, is single, unemployed, supported by [facility], his highest level of education is high school Patient's Strengths (min. 2) Verbal communicate Physical Exam Vital Signs Vital Signs Date Time Temp Pulse Resp B/P (MAP) Pulse Ox O2 Delivery O2 Flow Rate FiO2 08/08/17 12:17 98.5 106 20 114/73 (87) 93 I/O 08/08/17 08/08/17 08/09/17 08:00 16:00 00:00 Output Total 1000 ml 350 ml Balance -1000 ml -350 ml Lab Results Date/Time Source Procedure Growth Status 08/02/17 11:45 Blood Peripheral Aerobic Blood Culture - Final NO GROWTH IN 5 DAYS Complete 08/02/17 11:45 Blood Peripheral Anaerobic Blood Culture - Final NO GROWTH IN 5 DAYS Complete 07/31/17 13:38 Fluid Other Fungal Smear - Final NO FUNGAL ELEMENTS SEEN. Resulted 07/31/17 13:38 Fluid Other Fungal Culture - Preliminary NO GROWTH IN 1 WEEK Resulted Mental Status Examination Appearance: Appropriate Consciousness: Alert Orientation: x4 Motor Activity: Normal gait Speech: Unremarkable Language: Adequate Fund of Knowledge: Adequate Attention and Concentration: Adequate Memory: Unremarkable Mood: Angry Affect: Irritable Thought Process & Associations: Intact Thought Content: Appropriate Hallucination Type: None Delusion Type: None Suicidal Ideation: No Suicidal Plan: No Suicidal Intention: No Homicidal Ideation: No Homicidal Plan: No Homicidal Intention: No Insight: Fair Judgment: Impulsive Assessment & Plan Problem List: (1) Adjustment disorder with mixed disturbance of emotions and conduct ICD Codes: F43.25 - Adjustment disorder with mixed disturbance of emotions and conduct Assessment & Plan: On psychiatric evaluation today the patient is irritable, he seems to be quite distressed and physically agitated due to pain. The patient reports anxiety, upset mood, difficulty sleeping secondary to his persistent back pain. He denies suicidal enemas ideation, he denies visual and auditory hallucinations. Does not meet criteria for psychiatric admission. Low dose of clonazepam 0.5 mg twice daily, or even gabapentin 300 mg 3 times daily, can be added for his anxiety. Trazodone 100 mg at bedtime can be ordered for insomnia. He is fully oriented 3, no confusion, no fluctuation of consciousness, no attention deficit he are present at this moment. Patient seems to be well aware of current medical situation, is able to express after understanding and appreciation of medical conditions. He has decision-making capacity to participate in discharge plan and to refuse medications at this moment. Brief supportive psychotherapy provided. Consult appreciated Assessment & Plan Estimated LOS: Rajinder Gruber MD August 08, 2017 13:39
[2017-08-08] MEDS ORDERED: GADODIAMIDE PF 287 MG/ML 20 ML VIAL (for RAD MRI) IVCONTRAST ONE (14:30)
--- NOTE | 2017-08-08 15:52 | RADRPT ---
EXAM DATE/TIME: 08/08/2017 13:37 [facility] COMPARISON: MRI LUMBAR SPINE W/O CONTRAST, July 30, 2017, 0:12. MRI LUMBAR SPINE W/O CONTRAST, July 24, 2017, 1:22. INDICATIONS : Abscess. Lower back pain. CONTRAST: 20 cc Omniscan (gadodiamide) IV MEDICAL HISTORY : Hypertension. Rheumatoid arthritis. SURGICAL HISTORY : Lumbar, bilateral wrist, and the renal silhouettes. This represents the substantial progression. There is minimal epidural component at L4 that does show shoulder and bilateral knee. ENCOUNTER: Subsequent ACUITY: 2 weeks PAIN SCORE: 7/10 LOCATION: Lower back. TECHNIQUE: Multiplanar multisequence MRI of the lumbar spine was performed with and without contrast. FINDINGS: The most caudal appearing lumbar vertebra is numbered as L5. VERTEBRAE: There is increasing soft tissue induration in the muscles of the back extending from L1-L5. Metallic artifact is now present. T12-L1: The thecal sac has a normal diameter. No evidence of disc bulge or protrusion. The neural foramina are patent bilaterally. L1-L2: The thecal sac has a normal diameter. No evidence of disc bulge or protrusion. The neural foramina are patent bilaterally. L2-L3: The thecal sac has a normal diameter. No evidence of disc bulge or protrusion. The neural foramina are patent bilaterally. L3-L4: The thecal sac has a normal diameter. No evidence of disc bulge or protrusion. The neural foramina are patent bilaterally. Again there is increasing signal in the soft tissues of the muscle the back from L1-L5. There is increasing edema in the marrow at L5 and lesser degree L4. There is increased signal in the disc space. Large bilateral psoas abscesses are present extending from L2 on the left into the iliopsoas. Absces s extends from L3 to the pelvis on the right. This represents the substantial progression There is no significant epidural component. CONCLUSION: Substantial progression as described above. Roly Reina MD FACR on August 08, 2017 at 15:42 Board Certified Radiologist. This report was verified electronically.
--- NOTE | 2017-08-08 16:14 | PD.RAD ---
Post Procedure Progress Note Pre Procedure Diagnosis: (1) Confusion Post Procedure Diagnosis: (1) Confusion Procedure Date: August 08, 2017 Supervising Radiologist: Fady Chan Proceduralist/Assist: RT Anneliese(R), Other Anesthesia: Local Plan of Activity Patient to Unit: Nursing Unit Patient Condition: Good See PACS Report for procedural detail/treatment Spinal Procedure Lumbar Puncture L2-L3 Fluid Removal (CCs): 7 Fluid Description: Fady Peres MD August 08, 2017 16:14
--- NOTE | 2017-08-08 16:23 | RADRPT ---
EXAM DATE/TIME: 08/08/2017 15:42 [facility] COMPARISON: No previous studies available for comparison. INDICATIONS : Patient presents with weakness in lower extremities and bacl pain. MEDICAL HISTORY : Rheumatoid arthritis HTN Hyperlipidemia CKD Stage III Chronic back pain Cocaine abuse and tobacco abuse SURGICAL HISTORY : Lumbar surgery ENCOUNTER: Initial ACUITY: 1 week PAIN SCORE: 7/10 LOCATION: lower back LUMBAR PUNCTURE TIME: 1542 hours FLUORO TIME: 1.2 minutes IMAGE SERIES: 1 ACCESS LEVEL: L2-3 FLUID: 7 cc of clear CSF was collected and sent to the laboratory for analysis. PROCEDURE : 1. Fluoroscopic guided lumbar puncture. The risks, benefits and alternatives to the procedure were explained and verbal and written consent w as obtained. The site was prepped in sterile fashion. Full sterile technique was used, including ca p, mask, sterile gloves and gown and a large sterile sheet. Hand hygiene and 2% chlorhexidine and/or betadine/alcohol prep was utilized per protocol for cutaneous antisepsis. The skin and subcutaneous tissues were infiltrated with local anesthetic solution. With fluoroscopic guidance the lumbar thecal sac was punctured at the level above. The fluid describ ed above was removed without difficulty. The patient tolerated the procedure well and there were no complications. CONCLUSION: Uncomplicated fluoroscopically guided lumbar puncture. Fady Chan MD on August 08, 2017 at 16:21 Board Certified Radiologist. This report was verified electronically.
[2017-08-08 16:54] LABS: TOTAL PROTEIN,CSF 103.7 MG/DL (15.0-45.0)
[2017-08-08 17:00] VITALS: BP 112/64; PULSE 102; RESP 20; TEMP 98.6; O2SAT 100
[2017-08-08 17:53] LABS: SUPERNATE COLOR TUBE #1 CLEAR (CLEAR)
[2017-08-08 17:54] LABS: CSF HISTIOCYTES 14 %; CSF LYMPHOCYTES 55 %; CSF MONOCYTES 20 %; CSF NEUTROPHILS 11 %; RBC TUBE #4 0 /MM3; WBC TUBE #4 5 /MM3 (0-10)
--- NOTE | 2017-08-08 19:55 | HHI.NSPN ---
History Chief Complaint: Low back pain Interval History 07/30: 57-year-old gentleman with a history of lumbar osteomyelitis and discitis with abscess who underwent L4-[address] Felipe from neurosurgery. He has a chronic history of low back pain and more recent MRI scan shows degenerative L4-5 stenosis with facet hypertrophy and grade 1 spondylolisthesis along with some possible L5 anterior vertebral body osteomyelitis with the prevertebral retroperitoneal abscess. Patient was scheduled to follow-up with Dr. Felipe but returned to the emergency room for persistent back pain. Currently he is very sedated but does awaken and relates that his pain is controlled. He has been ambulating with a cane on a chronic basis. No bowel bladder incontinence or any lower extremity weakness noted. Dr. Gamez from neurosurgery coverage over the weekend was consulted and deferred further management to Dr. Felipe who is currently out of town. 08/06: When seen this morning the patient is asleep in bed. He does awaken to voice but is drowsy after that. He complains of pain to the lower back that does radiate down both lower extremities to the knees. He denies any numbness or tingling to the lower extremities. He does have low lumbar tenderness to palpation. He did not have any apparent lower extremity sensory deficits. His motor strength exam was incomplete due to patient not fully participating due to pain and drowsiness. 08/08/2017: Relatively awake and alert. Status post lumbar puncture Exam Results Vital Signs Date Time Temp Pulse Resp B/P (MAP) Pulse Ox O2 Delivery O2 Flow Rate FiO2 08/08/17 17:00 98.6 102 20 112/64 (80) 100 Intake and Output 08/08/17 08/08/17 08/09/17 08:00 16:00 00:00 Intake Total 600 ml Output Total 1000 ml 350 ml 1000 ml Balance -1000 ml -350 ml -400 ml Physical Examination GENERAL: Awake and relatively alert SKIN: No rashes, ecchymoses or lesions. Cool and dry. HEENT: Normocephalic, atraumatic. MUSCULOSKELETAL: HUANG spontaneously & purposefully. Right thigh minimally TTP. No evident clubbing or deformity. Thoracic spine NTTP. Inferior lumbar spine minimally TTP. NEUROLOGICAL: Awake and relatively alert Oriented to person, place & time. Speech clear & appropriate. Follows commands w/o difficulty. Sensation appears intact to light touch to the lower extremities. Muscle strength does appear to be 5/5 to the lower extremities Lab, Micro, Other Results 08/08/2017 MRI lumbar spine images reviewed. There is some progression of L4-5 discitis as well as bilateral psoas abscess. No definite epidural abscess noted. Lumbar Spine MRI 08/08/17 0000 Signed Impressions: Service Date/Time: Tuesday, August 08, 2017 13:37 - CONCLUSION: Substantial progression as described above. Roly Reina MD FACR Lumbar Puncture Fluoroscopy 08/08/17 0000 Signed Impressions: Service Date/Time: Tuesday, August 08, 2017 15:42 - CONCLUSION: Uncomplicated fluoroscopically guided lumbar puncture. Fady Chan MD Laboratory Tests Test 08/08/17 15:42 CSF Volume (Tube 1) 2.0 ML CSF Supernatant Color (tube 1) CLEAR CSF Gross Blood (Tube 1) 0 CSF Volume (Tube 2) 1.0 ML CSF Supernatant Color (tube 2) CLEAR CSF Gross Blood (Tube 2) 0 CSF Volume (Tube 3) 1.0 ML CSF Supernatant Color (tube 3) CLEAR CSF Volume (Tube 4) 3.0 ML CSF Supernatant Color (tube 4) CLEAR CSF WBC (Tube 4) 5 /MM3 CSF RBC (Tube 4) 0 /MM3 CSF Neutrophils 11 % CSF Lymphocytes 55 % CSF Monocytes 20 % CSF Histiocytes 14 % CSF Glucose 35 MG/DL CSF Total Protein 103.7 MG/DL Medical Decision Making Impression and Plan Impression: 1. L4-5 discitis with bilateral psoas abscess. Some progression compared to prior scan. Plan: We will discuss with interventional radiology regarding CT-guided aspiration versus surgical evacuation. Guero Felipe MD August 08, 2017 19:55
[2017-08-08 20:00] VITALS: BP 142/72; PULSE 106; RESP 16; TEMP 97.4; O2SAT 95
[2017-08-08] MEDS: oxyCODONE/ACETAMINOPHEN 10 MG/325 MG TAB PO PRN ×2 (21:10→21:18)
[2017-08-08] MEDS: LORazepam 2 MG/ML VIAL IV PUSH PRN (21:14)
[2017-08-09] VITALS: BP 136/86; PULSE 110; RESP 16; TEMP 97.6; O2SAT 95
[2017-08-09] MEDS: HYDROmorphone HCL PF 0.5 MG/0.5 ML SYRINGE IV PUSH PRN ×4 (01:35→19:20)
[2017-08-09] MEDS: cefTRIAXone INJ 2,000 MG in SODIUM CHLORIDE 0.9% INJ 100 ML IV SCH ×2 (05:31→17:04)
[2017-08-09 06:57] LABS: BICARBONATE 26.2 MEQ/L (21.0-32.0); CALCIUM 8.3 MG/DL (8.5-10.1); CREATININE 1.46 MG/DL (0.60-1.30)
[2017-08-09 07:34] VITALS: BP 173/105; PULSE 113; RESP 20; TEMP 97.9; O2SAT 90
[2017-08-09 07:35] VITALS: BP 165/100
[2017-08-09] MEDS: DOCUSATE SODIUM 50 MG/SENNA 8.6 MG TAB PO SCH ×2 (08:13→22:21)
[2017-08-09] MEDS: FAMOTIDINE 20 MG TAB PO SCH ×2 (08:15→22:21)
[2017-08-09] MEDS: SODIUM CHLORIDE 0.9% FLUSH 10 ML FLUSH IV FLUSH SCH ×2 (08:15→22:21)
[2017-08-09] MEDS: LACTIC ACID (AMMONIUM LACTATE) 12% LOTION 225 GM BTL TOPICAL SCH ×2 (08:16→22:22)
[2017-08-09] MEDS: SODIUM CHLOR 0.9% 1000 ML INJ 1,000 ML IV SCH ×3 (09:01→19:01)
--- NOTE | 2017-08-09 09:26 | HHI.PR ---
Subjective Remarks in no acute distress. complaining of pain to the lower back. no fever. d/w the PT. Objective Vitals Vital Signs Date Time Temp Pulse Resp B/P (MAP) Pulse Ox O2 Delivery O2 Flow Rate FiO2 08/09/17 07:35 165/100 (121) 08/09/17 07:34 97.9 113 20 173/105 (127) 90 08/09/17 00:00 97.6 110 16 136/86 (103) 95 08/08/17 20:00 97.4 106 16 142/72 (95) 95 08/08/17 17:00 98.6 102 20 112/64 (80) 100 08/08/17 12:17 98.5 106 20 114/73 (87) 93 I/O 08/08/17 08/08/17 08/08/17 08/09/17 08/09/17 08/09/17 07:00 15:00 23:00 07:00 15:00 23:00 Intake Total 600 ml Output Total 1000 ml 350 ml 1000 ml Balance -1000 ml -350 ml -400 ml Intake Oral 600 ml Output Urine Total 1000 ml 350 ml 1000 ml # Voids 2 # Bowel Movements 2 0 Result Diagram: 08/06/17 1208 08/09/17 0538 Imaging Last Impressions Lumbar Spine MRI 08/08/17 0000 Signed Impressions: Service Date/Time: Tuesday, August 08, 2017 13:37 - CONCLUSION: Substantial progression as described above. Roly Reina MD FACR Lumbar Puncture Fluoroscopy 08/08/17 0000 Signed Impressions: Service Date/Time: Tuesday, August 08, 2017 15:42 - CONCLUSION: Uncomplicated fluoroscopically guided lumbar puncture. Fady Chan MD Chest X-Ray 08/07/17 0000 Signed Impressions: Service Date/Time: Monday, August 07, 2017 14:51 - CONCLUSION: 1. No acute findings. Elevated right hemidiaphragm. Tortuous aorta. Jack Travis MD Needle Biopsy/Aspiration X-Ray 07/31/17 0000 Signed Impressions: Service Date/Time: Monday, July 31, 2017 13:29 - CONCLUSION: Uncomplicated needle biopsy of the L4/L5 disc space as above. Candelario Reina MD Abdomen/Pelvis CT 07/29/17 0000 Signed Impressions: Service Date/Time: Saturday, July 29, 2017 22:14 - CONCLUSION: 1. Significant new prevertebral soft tissue fullness and stranding centered at the L5 level. There is associated sclerosis and erosive changes in the anterior L5 vertebral body which appear unchanged from recent exams. Overall, findings are concerning for discitis and osteomyelitis. Consider repeat MRI examination for further evaluation. 2. 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 However, evaluation is significantly limited due to lack of IV contrast on this exam. This was not present on remote prior CT exam. A mycotic aneurysm cannot be entirely excluded. Contrast enhanced examination would be greatly beneficial in further evaluation. 3. Nodular appearing liver contour consistent with cirrhosis. 4. IVC filter in place. 5. Cholelithiasis. Tanner Jones MD Objective Remarks GENERAL: This is a well-nourished, well-developed patient, in no apparent distress. CARDIOVASCULAR: Regular rate and regular rhythm without murmurs, gallops, or rubs. RESPIRATORY: Clear to auscultation. Breath sounds equal bilaterally. No wheezes , rales, or rhonchi. GASTROINTESTINAL: Abdomen soft, non-tender, nondistended. Normal, active bowel sounds MUSCULOSKELETAL: Extremities without clubbing, cyanosis, or edema. NEURO: lethargic but arousable. Medications and IVs Inpatient Medications Acetaminophen (Tylenol) 650 mg Q6H PRN PO FEVER/PAIN SCALE 1 TO 2 Last administered on 08/07/17at 22:22; Start 07/29/17 at 23:15 Amlodipine Besylate (Norvasc) 10 mg DAILY PO Last administered on 08/09/17at 08: 14; Start 08/06/17 at 11:00 Bisacodyl (Dulcolax Supp) 10 mg DAILY PRN RECTAL SEVERE CONSITIPATION/ IF NPO ; Start 07/29/17 at 23:15 Calcium Carbonate (Tums Chew) 500 mg Q2H PRN CHEW indigestion Last administered on 08/05/17at 13:49; Start 08/02/17 at 19:30 Cefepime HCl 1000 mg/Sodium Chloride 100 ml @ 200 mls/hr Q12H IV Last administered on 08/01/17at 21:37; Start 07/30/17 at 09:00; Stop 08/02/17 at 06:53; Status DC Ceftriaxone Sodium 2000 mg/ Sodium Chloride 100 ml @ 200 mls/hr Q12H IV Last administered on 08/09/17 05:31; Start 08/03/17 at 17:00 Clonidine (Catapres) 0.1 mg ONCE ONCE PO Last administered on 08/06/17 06:45; Start 08/06/17 at 06:45; Stop 08/06/17 at 06:46; Status DC Dexamethasone Sodium Phosphate (Decadron Inj) 8 mg ONCE ONCE IV PUSH Last administered on 07/29/17at 20:42; Start 07/29/17 at 20:15; Stop 07/29/17 at 20:16 ; Status DC Enalaprilat (Vasotec Inj) 2.5 mg Q6H PRN IV PUSH SBP > 165 Last administered on 08/07/17at 22:20; Start 08/06/17 at 11:00 Famotidine (Pepcid) 20 mg BID PO Last administered on 08/09/17 08:15; Start at 21:00 Hydralazine HCl (Apresoline Inj) 10 mg Q4H PRN IV PUSH SBP > 165; Start at 10:00; Stop 08/06/17 at 11:01; Status DC Hydromorphone HCl (Dilaudid Pf Inj) 0.5 mg Q4H PRN IV PUSH BREAKTHROUGH PAIN Last administered on 08/09/17 05:30; Start 08/01/17 at 09:00 Lactic Acid (Lac-Hydrin 12% Lotion) 1 applic BID TOPICAL Last administered on 08:16; Start 08/04/17 at 21:00 Lactulose (Lactulose Liq) 30 ml DAILY PRN PO SEVERE CONSITIPATION/ IF PO Last administered on 08/06/17 01:05; Start 07/29/17 at 23:15 Lorazepam (Ativan Inj) 1 mg Q2H PRN IV PUSH AGITATION/WITHDRAWAL Last administered on 08/08/17at 21:14; Start 07/29/17 at 23:15 Magnesium Hydroxide (Milk Of Magnesia Liq) 30 ml Q12H PRN PO Mild constipation ; Start 07/29/17 at 23:15 Morphine Sulfate (Morphine Inj) 2 mg Q3H PRN IV PUSH Pain 6-10 Last administered on 08/01/17at 01:54; Start 07/30/17 at 20:45; Stop 08/01/17 at 08:56; Status DC Ondansetron HCl (Zofran Inj) 4 mg Q6H PRN IVP NAUSEA OR VOMITING; Start at 23:15 Oxycodone HCl (Roxicodone) 5 mg ONCE ONCE PO Last administered on 07/31/17at 22: 40; Start 07/31/17 at 22:15; Stop 07/31/17 at 22:18; Status DC Oxycodone/ Acetaminophen (Percocet 5-325 Mg) 1 tab Q6H PRN PO PAIN 4-10 Last administered on 08/09/17at 08:14; Start 08/08/17 at 08:45 Oxycodone/ Acetaminophen (Percocet 10-325 Mg) 1 tab Q4H PRN PO PAIN SCALE 4 TO 10 Last administered on 08/06/17at 05:36; Start 08/01/17 at 09:00; Status Future Hold Pharmacy Profile Note 0 ml @ 0 mls/hr UNSCH OTHER ; Start 07/29/17 at 23:15; Stop 08/06/17 at 14:40; Status DC Senna/Docusate Sodium (Emilie-Colace) 1 tab BID PO Last administered on at 08:13; Start 07/30/17 at 09:00 Sennosides (Senokot) 17.2 mg Q12H PRN PO Moderate constipation; Start 07/29/17 at 23:15 Sodium Chloride (NS Flush) 2 ml BID IV FLUSH Last administered on 08/08/17at 21: 13; Start 07/30/17 at 09:00 Vancomycin HCl 1000 mg/Sodium Chloride 250 ml @ 250 mls/hr ONCE ONCE IV Last administered on 07/30/17at 12:08; Start 07/30/17 at 12:00; Stop 07/30/17 at 12:59 ; Status DC Vancomycin HCl 1500 mg/Sodium Chloride 515 ml @ 257.5 mls/ hr ONCE ONCE IV Last administered on 07/31/17at 18:19; Start 07/31/17 at 18:00; Stop 07/31/17 at 19: 59; Status DC Vancomycin HCl 1750 mg/Sodium Chloride 517.5 ml @ 257.5 mls/ hr ONCE ONCE IV Last administered on 08/06/17at 14:05; Start 08/06/17 at 13:00; Stop 08/06/17 at 14: 40; Status DC Vancomycin HCl 2000 mg/Sodium Chloride 520 ml @ 250 mls/hr ONCE ONCE IV Last administered on 08/02/17at 14:50; Start 08/02/17 at 14:00; Stop 08/02/17 at 16:04; Status DC Vancomycin/Sodium Chloride 200 ml @ 200 mls/hr ONCE ONCE IV Last administered on 07/29/17at 23:55; Start 07/30/17 at 00:00; Stop 07/30/17 at 00:59 ; Status DC A/P Problem List: (1) Osteomyelitis ICD Code: M86.9 - Osteomyelitis, unspecified (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 - Aneurysm of unspecified site (3) Cocaine abuse ICD Code: F14.10 - Cocaine abuse, uncomplicated (4) Hyperkalemia ICD Code: E87.5 - Hyperkalemia (5) Hyponatremia ICD Code: E87.1 - Hypo-osmolality and hyponatremia (6) CKD (chronic kidney disease) stage 3, GFR 30-59 ml/min ICD Code: N18.3 - Chronic kidney disease, stage 3 (moderate) Assessment and Plan Osteomyelitis L5 vertebra Patient underwent a CT-guided removal of fluid for culture as well as disc biopsy on 07/31/2017 Blood culture grew out strep anginousis Fluid cultures grew out skin pooja MRI of the lumbar spine repeated with L4-5 discitis with bilateral psoas abscess. Some progression compared to prior scan. continue IV Rocephin. neurosurgery and ID following. bacteremia with strep. continue antibiotics per ID. evaluated by GI for colonoscopy which the patient declined. Altered mental status- likely drug-induced.now improved. history of cocaine abuse with positive urine toxicology for cocaine during this hospitalization. s/p LP; with negative fluid culture so far. continue to monitor. psych consulted; patient is capable of making decisions. 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 Likely related to cocaine abuse Continue to follow trend DVT prophylaxis SCDs palliative care consulted to assist with goals of care. Discharge Planning not ready for discharge. Mainor Grace MD August 09, 2017 09:26
[2017-08-09 11:33] VITALS: BP 136/91; PULSE 102; RESP 22; TEMP 97.8; O2SAT 95
--- NOTE | 2017-08-09 13:22 | HHI.IDPN ---
Subjective Subjective Remarks ID COVERAGE Mr. Gee is a 57-year-old -[place] male with past medical history significant for rheumatoid arthritis on prednisone. From infectious disease standpoint his past medical history significant for prior history of strep epidural abscess as well as bacteremia treated with IV antibiotics and also needing L4 partial laminectomy in 2013 as well as an abscess on the skin of his back.. His past medical history is also significant for chronic kidney disease stage III, chronic back pain, cocaine abuse and tobacco abuse who presented to the emergency department with complaints of severe back pain. Patient is an extremely poor historian and reports that he has had a prior visit to the emergency room on July 23, 2017 with similar symptoms. An MRI of the L-spine did not show any evidence of infection patient was asked to follow-up with Dr. Pineda whom he has seen in the past. On arrival, BP 125/71, HR 86, O2 sat 100% RA, Afebrile. WBC 20.8. Na 128. K+ 5.5. Creatinine 2.84, previously 2.97 on 07/23/2017. INR 1.1. UA negative for UTI. 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 S/p Vanc/ Rocephin in ER. At the time of my evaluation patient is on a regular floor. Appears to be comfortable not in significant pain involving his extremities. Patient reports tingling numbness and extreme pain in his bilateral lower extremities right more than left. Patient denies any bowel bladder incontinence. Denies any decrease in perineal sensation. Infectious diseases consulted for evaluation and management of discitis and epidural abscess. Notes reviewed MRI repeat showing progression of infection, and dev of lenin psoas abscess Neurosurgery notes reviewed [place] ok LP results noted, WBC only 5, but with low glucose and elevated protein Psych evaluation noted Antibiotics Ceftriaxone IV Current Medications Medications (Trade) Dose Ordered Sig/Manjit Route Start Time Stop Time Status Last Admin Sodium Chloride 1,000 ml @ 100 mls/hr Q10H IV 07/29/17 23:01 08/08/17 08:58 (NS Flush) 2 ml UNSCH PRN IV FLUSH 07/29/17 23:15 08/07/17 22:20 (NS Flush) 2 ml BID IV FLUSH 07/30/17 09:00 08/08/17 21:13 (Zofran Inj) 4 mg Q6H PRN IVP 07/29/17 23:15 (Tylenol) 650 mg Q6H PRN PO 07/29/17 23:15 08/07/17 22:22 (Emilie-Colace) 1 tab BID PO 07/30/17 09:00 08/09/17 08:13 (Milk Of Magnesia Liq) 30 ml Q12H PRN PO 07/29/17 23:15 (Senokot) 17.2 mg Q12H PRN PO 07/29/17 23:15 (Dulcolax Supp) 10 mg DAILY PRN RECTAL 07/29/17 23:15 (Lactulose Liq) 30 ml DAILY PRN PO 07/29/17 23:15 08/06/17 01:05 (Ativan Inj) 1 mg Q2H PRN IV PUSH 07/29/17 23:15 08/08/17 21:14 (Dilaudid Pf Inj) 0.5 mg Q4H PRN IV PUSH 08/01/17 09:00 08/09/17 11:19 (Tums Chew) 500 mg Q2H PRN CHEW 08/02/17 19:30 08/05/17 13:49 Ceftriaxone Sodium 2000 mg/ Sodium Chloride 100 ml @ 200 mls/hr Q12H IV 08/03/17 17:00 08/09/17 05:31 (Catapres) 0.1 mg Q6H PRN PO 08/04/17 15:30 08/06/17 23:44 (Lac-Hydrin 12% Lotion) 1 applic BID TOPICAL 08/04/17 21:00 08/09/17 08:16 (Pepcid) 20 mg BID PO 08/05/17 21:00 08/09/17 08:15 (Norvasc) 10 mg DAILY PO 08/06/17 11:00 08/09/17 08:14 (Vasotec Inj) 2.5 mg Q6H PRN IV PUSH 08/06/17 11:00 08/07/17 22:20 (Percocet 5-325 Mg) 1 tab Q4HR PRN PO 08/09/17 10:00 Lines Line sites with no e.o infection. Past Medical History reviewed. Allergies: Coded Allergies: *MDRO Multi-Drug Resistant Organism (Verified Adverse Reaction, Unknown, ) MRSA (leg wound) - 10/2006 MRSA PCR screen positive - 10/2014 Objective . Vital Signs Date Time Temp Pulse Resp B/P (MAP) Pulse Ox O2 Delivery O2 Flow Rate FiO2 08/09/17 11:33 97.8 102 22 136/91 (106) 95 08/09/17 07:35 165/100 (121) 08/09/17 07:34 97.9 113 20 173/105 (127) 90 08/09/17 00:00 97.6 110 16 136/86 (103) 95 08/08/17 20:00 97.4 106 16 142/72 (95) 95 08/08/17 17:00 98.6 102 20 112/64 (80) 100 . Laboratory Tests Test 08/09/17 05:38 Blood Urea Nitrogen 18 MG/DL Creatinine 1.46 MG/DL Random Glucose 73 MG/DL Calcium Level 8.3 MG/DL Sodium Level 137 MEQ/L Potassium Level 5.0 MEQ/L Chloride Level 103 MEQ/L Carbon Dioxide Level 26.2 MEQ/L Anion Gap 8 MEQ/L Estimat Glomerular Filtration Rate 61 ML/MIN Microbiology Date/Time Source Procedure Growth Status 08/08/17 15:42 Cerebral Spinal Fluid Lumbar Puncture Gram Stain - Final Resulted 08/08/17 15:42 Cerebral Spinal Fluid Lumbar Puncture CSF Culture - Preliminary NO GROWTH IN 24 HOURS. Resulted Imaging Last Impressions Needle Biopsy/Aspiration X-Ray 07/31/17 0000 Signed Impressions: Service Date/Time: Monday, July 31, 2017 13:29 - CONCLUSION: Uncomplicated needle biopsy of the L4/L5 disc space as above. Candelario Reina MD Lumbar Spine MRI 07/30/17 0000 Signed Impressions: Service Date/Time: Sunday, July 30, 2017 00:12 - CONCLUSION: 1. An apparent inflammatory phlegmon/abscess anterior to the L5 vertebral body with cortical irregularity along the anterior margin of L5 concerning for regional osteomyelitis. This appears to be confined to the prevertebral space. Area is incompletely evaluated without IV contrast. 2. Grade 1 anterolisthesis of L4 on 5 with bilateral facet hypertrophy at the same level results in moderately severe central spinal stenosis which is probably advanced enough to compromise central nerve roots. 3. 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 I believe the spinal canal is adequate at all levels except L4-5, however. 4. 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 No acute cardiopulmonary disease. Tanner Jones MD Abdomen/Pelvis CT 07/29/17 0000 Signed Impressions: Service Date/Time: Saturday, July 29, 2017 22:14 - CONCLUSION: 1. Significant new prevertebral soft tissue fullness and stranding centered at the L5 level. There is associated sclerosis and erosive changes in the anterior L5 vertebral body which appear unchanged from recent exams. Overall, findings are concerning for discitis and osteomyelitis. Consider repeat MRI examination for further evaluation. 2. 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 However, evaluation is significantly limited due to lack of IV contrast on this exam. This was not present on remote prior CT exam. A mycotic aneurysm cannot be entirely excluded. Contrast enhanced examination would be greatly beneficial in further evaluation. 3. Nodular appearing liver contour consistent with cirrhosis. 4. IVC filter in place. 5. Cholelithiasis. Tanner Jones MD Physical Exam GENERAL: resting, awakens easily when stimulated, NAD SKIN: No obvious rash. HEAD: Atraumatic. Normocephalic. No temporal or scalp tenderness. EYES: No scleral icterus. No injection or drainage. ENT: No gross bleeding. Moist mucosa NECK: Patient was moving his neck is in all 4 directions. Was flexing his neck CARDIOVASCULAR: regular RESPIRATORY: Clear posteriorly GASTROINTESTINAL: Not tender MUSCULOSKELETAL: No pedal edema NEUROLOGICAL: Awakens easily Psych uncooperative. IV line sites with no e.o infection Assessment & Plan Remarks Strep bacteremia, probable endocarditis Epidural abscess Discitis. - progression of infection on MRI repeat 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 Immune compromised host. Acute on chronic kidney disease Hyperkalemia Recs Continue ceftriaxone IV Follow C/S Neurosurgery evaluating - IR possible drainage of psoase abscess Monitor progress Aubrie Moctezuma MD August 09, 2017 13:22
[2017-08-09] MEDS: oxyCODONE/ACETAMINOPHEN 5 MG/325 MG TAB PO PRN ×2 (15:13→22:24)
[2017-08-09 15:44] VITALS: BP 139/91; PULSE 104; RESP 20; TEMP 97.8; O2SAT 98
--- NOTE | 2017-08-09 17:21 | HHI.HCPN ---
Reason for visit a. To assist with evaluation and management of symptoms including: Pain, anxiety,debility b. To assist medical decision maker(s) with: better understanding of current medical conditions; weighing benefits/burdens of medical treatment options; making medical treatment decisions. (Erasmo Vieyra) Subjective/Interval History Follow-up medically necessary for symptom management and further clarification of goals of care. Patient seen and examined in his room in the presence of his bedside RN. Patient is in a better mood today, cooperative and more conversant than he was yesterday. Patient endorsing pain to his lower back which radiates to his bilateral lower extremities. Patient complaining of numbness to right great toe. Patient stated that pain is relieved when he is medicated. Patient` s pain medication adjusted today. Oxycodone/Acetaminophen frequency changed to q 4 hrs prn and he also has Hydromorphone 0.5mg q 4 hrs prn for breakthrough pain. Patient received x2 prn doses of Oxycodone in the past 24hrs and x6 prn doses of Hydromorphone in the past 24hrs. Patient is calm and has not required Lorazepam today, last prn dose was given 08/08/17 at night time. Able to follow commands with all 4 extremities. MRI of lumbar spine 08/08/17 revealed L4 -L5 discitis with bilateral psoas abscesses, showing some progression compared to prior imaging. patient underwent lumbar puncture L2-L3 with no complications. Cerebrospinal fluid showing no growth in 24 hours. Neurosurgery and infectious disease following. Patient completed HCS form today. In the event that he is incapacitated, patient wants his friend Jennifer Kendrick to serve as his health care surrogate, and his son Gerard Hull Jr as his alternate healthcare surrogate and if the above mentioned are not able to serve, he chose his ex- Kelly Gee as his second alternate Healthcare Surrogate. Patient`s goals remain aggressive. . Family/friend interactions No family at bedside . (Erasmo Vieyra) Advance Directives Living Will: Never completed Health Care Surrogate: Copy in medical record Durable Power of Manager Life: Never completed (Erasmo Vieyra) Advance Directive Specifics Date completed: 08/09/2017 . Health Care Surrogate(s): Healthcare surrogate-Friend- Jennifer Kendrick- [phone] Alternate healthcare surrogate -Son-Kalyan Gee Gd-[phone]/ 3rd choice- If the above-mentioned are not able to serve, patient designated his ex- -Kelly Gee as his second Alternate healthcare surrogate . (Erasmo Vieyra) Objective Vital Signs Date Time Temp Pulse Resp B/P (MAP) Pulse Ox O2 Delivery O2 Flow Rate FiO2 08/09/17 15:44 97.8 104 20 139/91 (107) 98 08/09/17 11:33 97.8 102 22 136/91 (106) 95 08/09/17 07:35 165/100 (121) 08/09/17 07:34 97.9 113 20 173/105 (127) 90 08/09/17 00:00 97.6 110 16 136/86 (103) 95 08/08/17 20:00 97.4 106 16 142/72 (95) 95 08/08/17 17:00 98.6 102 20 112/64 (80) 100 Intake & Output 08/09/17 08/09/17 07:00 19:00 Intake Total 1477 ml Output Total 200 ml 800 ml Balance -200 ml 677 ml Intake Oral 480 ml IV Total 997 ml Output Urine Total 200 ml 800 ml # Bowel Movements 1 Physical Exam CONSTITUTIONAL/GENERAL: This is an adequately nourished patient, in no apparent distress. TUBES/LINES/DRAINS:PIV SKIN: Dry. No jaundice, rashes, or lesions. No wounds seen anteriorly. Skin temperature appropriate. Not diaphoretic. HEAD: Atraumatic. Normocephalic. EYES: PERRLA. Extraocular motions intact. No scleral icterus. No injection or drainage. Fundi not examined. ENT: Hearing grossly normal. Nose without bleeding or purulent drainage. Moist oral mucosa NECK: Trachea midline. Supple, nontender. CARDIOVASCULAR: S1, S2 normal, no audible murmurs, gallops, or rubs. No JVD. Peripheral pulses symmetric. RESPIRATORY/CHEST: Symmetric, unlabored respirations. Clear to auscultation. No wheezes, rales, or rhonchi. GASTROINTESTINAL: Abdomen soft, non-tender, nondistended. No guarding. Bowel sounds present. GENITOURINARY: Without palpable bladder distension. MUSCULOSKELETAL: Extremities without clubbing, cyanosis, or edema. Complaining of lower back pain NEUROLOGICAL: Awake and alert. Oriented to self, place and situation. Motor and sensory grossly within normal limits. Follows commands. Moves all extremities. PSYCHIATRIC: No obvious anxiety/depression. no apparent hallucinations or other psychotic thought process. (Erasmo Vieyra) Diagnostic Tests Laboratory Laboratory Tests Test 08/08/17 15:42 08/09/17 05:38 CSF Volume (Tube 1) 2.0 ML CSF Supernatant Color (tube 1) CLEAR (CLEAR) CSF Gross Blood (Tube 1) 0 (0) CSF Volume (Tube 2) 1.0 ML CSF Supernatant Color (tube 2) CLEAR (CLEAR) CSF Gross Blood (Tube 2) 0 (0) CSF Volume (Tube 3) 1.0 ML CSF Supernatant Color (tube 3) CLEAR (CLEAR) CSF Volume (Tube 4) 3.0 ML CSF Supernatant Color (tube 4) CLEAR (CLEAR) CSF WBC (Tube 4) 5 /MM3 (0-10) CSF RBC (Tube 4) 0 /MM3 (NONE) CSF Neutrophils 11 % CSF Lymphocytes 55 % CSF Monocytes 20 % CSF Histiocytes 14 % CSF Glucose 35 MG/DL (40-80) CSF Total Protein 103.7 MG/DL (15.0-45.0) Blood Urea Nitrogen 18 MG/DL (7-18) Creatinine 1.46 MG/DL (0.60-1.30) Random Glucose 73 MG/DL (74-106) Calcium Level 8.3 MG/DL (8.5-10.1) Sodium Level 137 MEQ/L (136-145) Potassium Level 5.0 MEQ/L (3.5-5.1) Chloride Level 103 MEQ/L (98-107) Carbon Dioxide Level 26.2 MEQ/L (21.0-32.0) Anion Gap 8 MEQ/L (5-15) Estimat Glomerular Filtration Rate 61 ML/MIN (>89) (Erasmo Vieyra) Result Diagram: 08/06/17 1208 08/09/17 0538 Microbiology Microbiology Date/Time Source Procedure Growth Status 08/08/17 15:42 Cerebral Spinal Fluid Lumbar Puncture Gram Stain - Final Resulted 08/08/17 15:42 Cerebral Spinal Fluid Lumbar Puncture CSF Culture - Preliminary NO GROWTH IN 24 HOURS. Resulted Imaging Last 48 hours Impressions Lumbar Spine MRI 08/08/17 0000 Signed Impressions: Service Date/Time: Tuesday, August 08, 2017 13:37 - CONCLUSION: Substantial progression as described above. Roly Reina MD FACR Lumbar Puncture Fluoroscopy 08/08/17 0000 Signed Impressions: Service Date/Time: Tuesday, August 08, 2017 15:42 - CONCLUSION: Uncomplicated fluoroscopically guided lumbar puncture. Fady Chan MD Procedures 08/08/17 needle biopsy of the L4/L5 disc space/aspiration x-ray . (Erasmo Vieyra) Assessment and Plan Disease Oriented Problem List: (1) Osteomyelitis (2) Cocaine abuse (3) Mycotic aneurysm (4) CKD (chronic kidney disease) stage 3, GFR 30-59 ml/min (5) Hypertension (6) Rheumatoid arthritis Symptom Scale: (1) Pain 0-10 Scale: Unable to quantify Comment: Patient came in complaining of lower back pain . (2) Anxiety Comment: Patient reported to psychiatry that he was feeling anxious . (3) Debility Comment: Progressive . Pertinent Non-Medical Issues Psychosocial:Patient was born and raised in [place]. Patient is single. Patient's highest level of education is high school. He is currently unemployed and disabled. Patient has 1 son Gerard Biggs Jr. He has been living with his nephew Mireille Rodriguez for the past 4 years. Spiritual: Patient is Yazdanism Legal: Never completed advanced directive Ethical issues impacting care: None identified at this time . Important Contacts Son- Kalyan Gee Jr- [phone] Cell/[phone] work Nephew- Mireille Rodriguez-[phone] (he has been living with patient for the past 4 years) Brother- Miles Gee [phone] . Prognosis Mr. Gee is a 57-year-old male with a past medical history significant for chronic back pain, lumbar osteomyelitis and discitis s/p L4-L5 laminectomy 2013 , rheumatoid arthritis, hyperlipidemia, chronic kidney stage III, cocaine abuse and tobacco abuse. Patient presented to the ER on 07/29/17 with complaints of severe back pain. Diagnostic tests revealed lumbar osteomyelitis with retroperitoneal/prevertebral abscess. Clinical course complicated with pain, anxiety and patient's of care and medication. Given ongoing comorbidities, patient remains at high risk for further complications, deterioration and decline. . Code Status: Full Code Plan PLAN: Legal decision maker: Patient has been deemed capacitated to participate in medical decision making by psychiatry on 08/08/17. In the event that he is incapacitated patient he has designated his friend Jennifer Kendrick to serve as his health care surrogate, and his son Gerard Hull Jr as his alternate healthcare surrogate and if the above mentioned are not able to serve, he chose his ex- Kelly Gee as his other alternate Healthcare Surrogate. Goals: Aggressive CODE STATUS: Full code Patient completed HCS form today. In the event that he is capacitated patient wants his friend Jennifer Kendrick to serve as his health care surrogate, and his son Gerard Hull Jr as his alternate healthcare surrogate and if the above mentioned are not able to serve, he chose his ex- Kelly Gee as his other alternate Healthcare Surrogate. Patient`s goals remain aggressive. SYMPTOMS: * Pain: Patient complaining of severe lower back pain. MRI lumbar revealed lumbar osteomyelitis with retroperitoneal/prevertebral abscess. Patient on antibiotics. Patient endorsing pain to his lower back.Patient`s pain medication adjusted today. Oxycodone/Acetaminophen frequency changed to q 4 hrs prn and he also has Hydromorphone 0.5mg q 4 hrs prn for breakthrough pain. Patient received x2 prn doses of Oxycodone in the past 24hrs and x6 prn doses of Hydromorphone in the past 24hrs. Patient may benefit from Flexeril prn. * Anxiety: Patient reported psychiatric that he feels anxious. Patient is calm and has not required Lorazepam today, last prn dose was given 08/08/17 at night time. Low dose of clonazepam 0.5 mg twice daily he has been recommended by psychiatry. * Debility: Patient is being progressively getting weaker and not able to ambulate long distances at home due to severe back pain. According to family he has lost a few pounds in the past weeks. Ambulated at home with a cane. Physical therapy has been consulted, recommended PT at rehab. Palliative care will continue to follow the patient during hospital course as condition evolves, to assist patient/decision-maker with understanding of their medical conditions, weighing benefits/burdens of treatment options, for clarification of goals of treatment. Additionally will assist with any symptoms of palliative concern (Erasmo Vieyra) Attestation To help prompt me to consider important information that might be impacting today's encounter and assessment, information from prior notes written by myself or my colleagues may have been "brought forward" into today's note. My signature on this note, however, is an attestation that I personally performed the exam, history, and/or decision-making noted today, and, unless otherwise indicated, the interactions with patient, family, and staff as well as the review of records all occurred today. I also attest that the listed assessment and stated plan reflect my best clinical judgment today based on the combination of historical information, prior notes, and today's exam/ interactions. When time spent is documented, it refers only to time spent today by the signer, or if indicated, combined time spent today by collaborating physician/nurse practitioner. (Erasmo Vieyra) Collaborating MD Comments Chart reviewed. 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 Above note reviewed and I concur. . (Matt Toney MD) Erasmo Vieyra August 09, 2017 17:21 Matt Toney MD Sep 15, 2017 13:04
[2017-08-09 21:20] VITALS: BP 140/87; PULSE 103; RESP 18; TEMP 98.4; O2SAT 94
[2017-08-09] MEDS: SODIUM CHLORIDE 0.9% FLUSH 10 ML FLUSH IV FLUSH PRN (22:21)
[2017-08-09] MEDS: LORazepam 2 MG/ML VIAL IV PUSH PRN (22:22)
[2017-08-10 00:45] VITALS: BP 141/89; PULSE 101; RESP 19; TEMP 97.9; O2SAT 95
[2017-08-10] MEDS: HYDROmorphone HCL PF 0.5 MG/0.5 ML SYRINGE IV PUSH PRN ×3 (02:24→16:23)
[2017-08-10 04:00] VITALS: BP 137/79; PULSE 100; RESP 19; TEMP 98.9; O2SAT 94
[2017-08-10] MEDS: oxyCODONE/ACETAMINOPHEN 5 MG/325 MG TAB PO PRN ×4 (06:05→22:32)
[2017-08-10] MEDS: cefTRIAXone INJ 2,000 MG in SODIUM CHLORIDE 0.9% INJ 100 ML IV SCH ×3 (06:06→22:32)
[2017-08-10] MEDS: SODIUM CHLORIDE 0.9% FLUSH 10 ML FLUSH IV FLUSH PRN (06:06)
[2017-08-10] MEDS: SODIUM CHLOR 0.9% 1000 ML INJ 1,000 ML IV SCH ×3 (06:06→22:32)
[2017-08-10 08:00] VITALS: BP 116/69; PULSE 100; RESP 18; TEMP 98.6; O2SAT 100
[2017-08-10] MEDS: SODIUM CHLORIDE 0.9% FLUSH 10 ML FLUSH IV FLUSH SCH ×2 (09:00→21:00)
[2017-08-10] MEDS: DOCUSATE SODIUM 50 MG/SENNA 8.6 MG TAB PO SCH ×2 (09:20→22:31)
[2017-08-10] MEDS: FAMOTIDINE 20 MG TAB PO SCH ×2 (09:20→22:31)
[2017-08-10] MEDS: LACTIC ACID (AMMONIUM LACTATE) 12% LOTION 225 GM BTL TOPICAL SCH ×2 (09:22→22:31)
--- NOTE | 2017-08-10 09:38 | HHI.PR ---
Subjective Remarks looks comfortable. no fever. no new complaints. Objective Vitals Vital Signs Date Time Temp Pulse Resp B/P (MAP) Pulse Ox O2 Delivery O2 Flow Rate FiO2 08/10/17 08:00 98.6 100 18 116/69 (85) 100 08/10/17 04:00 98.9 100 19 137/79 (98) 94 08/10/17 00:45 97.9 101 19 141/89 (106) 95 08/09/17 21:20 98.4 103 18 140/87 (104) 94 08/09/17 15:44 97.8 104 20 139/91 (107) 98 08/09/17 11:33 97.8 102 22 136/91 (106) 95 I/O 08/09/17 08/09/17 08/09/17 08/10/17 08/10/17 08/10/17 07:00 15:00 23:00 07:00 15:00 23:00 Intake Total 997 ml 1330 ml 850 ml Output Total 1200 ml 2450 ml Balance 997 ml 130 ml -1600 ml Intake Oral 1330 ml 850 ml IV Total 997 ml Output Urine Total 1200 ml 2450 ml # Bowel Movements 1 0 Result Diagram: 08/06/17 1208 08/09/17 0538 Imaging Last Impressions Lumbar Spine MRI 08/08/17 0000 Signed Impressions: Service Date/Time: Tuesday, August 08, 2017 13:37 - CONCLUSION: Substantial progression as described above. Roly Reina MD FACR Lumbar Puncture Fluoroscopy 08/08/17 0000 Signed Impressions: Service Date/Time: Tuesday, August 08, 2017 15:42 - CONCLUSION: Uncomplicated fluoroscopically guided lumbar puncture. Fady Chan MD Chest X-Ray 08/07/17 0000 Signed Impressions: Service Date/Time: Monday, August 07, 2017 14:51 - CONCLUSION: 1. No acute findings. Elevated right hemidiaphragm. Tortuous aorta. Jack Travis MD Needle Biopsy/Aspiration X-Ray 07/31/17 0000 Signed Impressions: Service Date/Time: Monday, July 31, 2017 13:29 - CONCLUSION: Uncomplicated needle biopsy of the L4/L5 disc space as above. Candelario Reina MD Abdomen/Pelvis CT 07/29/17 0000 Signed Impressions: Service Date/Time: Saturday, July 29, 2017 22:14 - CONCLUSION: 1. Significant new prevertebral soft tissue fullness and stranding centered at the L5 level. There is associated sclerosis and erosive changes in the anterior L5 vertebral body which appear unchanged from recent exams. Overall, findings are concerning for discitis and osteomyelitis. Consider repeat MRI examination for further evaluation. 2. 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 However, evaluation is significantly limited due to lack of IV contrast on this exam. This was not present on remote prior CT exam. A mycotic aneurysm cannot be entirely excluded. Contrast enhanced examination would be greatly beneficial in further evaluation. 3. Nodular appearing liver contour consistent with cirrhosis. 4. IVC filter in place. 5. Cholelithiasis. Tanner Jones MD Objective Remarks GENERAL: This is a well-nourished, well-developed patient, in no apparent distress. CARDIOVASCULAR: Regular rate and regular rhythm without murmurs, gallops, or rubs. RESPIRATORY: Clear to auscultation. Breath sounds equal bilaterally. No wheezes , rales, or rhonchi. GASTROINTESTINAL: Abdomen soft, non-tender, nondistended. Normal, active bowel sounds MUSCULOSKELETAL: Extremities without clubbing, cyanosis, or edema. NEURO: lethargic but arousable. Medications and IVs Inpatient Medications Acetaminophen (Tylenol) 650 mg Q6H PRN PO FEVER/PAIN SCALE 1 TO 2 Last administered on 08/07/17at 22:22; Start 07/29/17 at 23:15 Amlodipine Besylate (Norvasc) 10 mg DAILY PO Last administered on 08/10/17at 09: 20; Start 08/06/17 at 11:00 Bisacodyl (Dulcolax Supp) 10 mg DAILY PRN RECTAL SEVERE CONSITIPATION/ IF NPO ; Start 07/29/17 at 23:15 Calcium Carbonate (Tums Chew) 500 mg Q2H PRN CHEW indigestion Last administered on 08/05/17at 13:49; Start 08/02/17 at 19:30 Cefepime HCl 1000 mg/Sodium Chloride 100 ml @ 200 mls/hr Q12H IV Last administered on 08/01/17at 21:37; Start 07/30/17 at 09:00; Stop 08/02/17 at 06:53; Status DC Ceftriaxone Sodium 2000 mg/ Sodium Chloride 100 ml @ 200 mls/hr Q12H IV Last administered on 08/10/17 06:06; Start 08/03/17 at 17:00 Clonidine (Catapres) 0.1 mg ONCE ONCE PO Last administered on 08/06/17 06:45; Start 08/06/17 at 06:45; Stop 08/06/17 at 06:46; Status DC Dexamethasone Sodium Phosphate (Decadron Inj) 8 mg ONCE ONCE IV PUSH Last administered on 07/29/17at 20:42; Start 07/29/17 at 20:15; Stop 07/29/17 at 20:16 ; Status DC Enalaprilat (Vasotec Inj) 2.5 mg Q6H PRN IV PUSH SBP > 165 Last administered on 08/07/17at 22:20; Start 08/06/17 at 11:00 Famotidine (Pepcid) 20 mg BID PO Last administered on 08/10/17 09:20; Start at 21:00 Hydralazine HCl (Apresoline Inj) 10 mg Q4H PRN IV PUSH SBP > 165; Start at 10:00; Stop 08/06/17 at 11:01; Status DC Hydromorphone HCl (Dilaudid Pf Inj) 0.5 mg Q4H PRN IV PUSH BREAKTHROUGH PAIN Last administered on 08/10/17 09:21; Start 08/01/17 at 09:00 Lactic Acid (Lac-Hydrin 12% Lotion) 1 applic BID TOPICAL Last administered on 09:22; Start 08/04/17 at 21:00 Lactulose (Lactulose Liq) 30 ml DAILY PRN PO SEVERE CONSITIPATION/ IF PO Last administered on 08/06/17at 01:05; Start 07/29/17 at 23:15 Lorazepam (Ativan Inj) 1 mg Q2H PRN IV PUSH AGITATION/WITHDRAWAL Last administered on 08/09/17 22:22; Start 07/29/17 at 23:15 Magnesium Hydroxide (Milk Of Magnesia Liq) 30 ml Q12H PRN PO Mild constipation ; Start 07/29/17 at 23:15 Morphine Sulfate (Morphine Inj) 2 mg Q3H PRN IV PUSH Pain 6-10 Last administered on 08/01/17at 01:54; Start 07/30/17 at 20:45; Stop 08/01/17 at 08:56; Status DC Ondansetron HCl (Zofran Inj) 4 mg Q6H PRN IVP NAUSEA OR VOMITING; Start at 23:15 Oxycodone HCl (Roxicodone) 5 mg ONCE ONCE PO Last administered on 07/31/17at 22: 40; Start 07/31/17 at 22:15; Stop 07/31/17 at 22:18; Status DC Oxycodone/ Acetaminophen (Percocet 5-325 Mg) 1 tab Q4HR PRN PO PAIN 4-10 Last administered on 08/10/17at 06:05; Start 08/09/17 at 10:00 Oxycodone/ Acetaminophen (Percocet 10-325 Mg) 1 tab Q4H PRN PO PAIN SCALE 4 TO 10 Last administered on 08/06/17at 05:36; Start 08/01/17 at 09:00; Stop 08/09/17 at 09:39; Status DC Pharmacy Profile Note 0 ml @ 0 mls/hr UNSCH OTHER ; Start 07/29/17 at 23:15; Stop 08/06/17 at 14:40; Status DC Senna/Docusate Sodium (Emilie-Colace) 1 tab BID PO Last administered on at 09:20; Start 07/30/17 at 09:00 Sennosides (Senokot) 17.2 mg Q12H PRN PO Moderate constipation; Start 07/29/17 at 23:15 Sodium Chloride (NS Flush) 2 ml BID IV FLUSH Last administered on 08/09/17at 22: 21; Start 07/30/17 at 09:00 Vancomycin HCl 1000 mg/Sodium Chloride 250 ml @ 250 mls/hr ONCE ONCE IV Last administered on 07/30/17at 12:08; Start 07/30/17 at 12:00; Stop 07/30/17 at 12:59 ; Status DC Vancomycin HCl 1500 mg/Sodium Chloride 515 ml @ 257.5 mls/ hr ONCE ONCE IV Last administered on 07/31/17at 18:19; Start 07/31/17 at 18:00; Stop 07/31/17 at 19: 59; Status DC Vancomycin HCl 1750 mg/Sodium Chloride 517.5 ml @ 257.5 mls/ hr ONCE ONCE IV Last administered on 08/06/17at 14:05; Start 08/06/17 at 13:00; Stop 08/06/17 at 14: 40; Status DC Vancomycin HCl 2000 mg/Sodium Chloride 520 ml @ 250 mls/hr ONCE ONCE IV Last administered on 08/02/17at 14:50; Start 08/02/17 at 14:00; Stop 08/02/17 at 16:04; Status DC Vancomycin/Sodium Chloride 200 ml @ 200 mls/hr ONCE ONCE IV Last administered on 07/29/17at 23:55; Start 07/30/17 at 00:00; Stop 07/30/17 at 00:59 ; Status DC A/P Problem List: (1) Osteomyelitis ICD Code: M86.9 - Osteomyelitis, unspecified (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 - Aneurysm of unspecified site (3) Cocaine abuse ICD Code: F14.10 - Cocaine abuse, uncomplicated (4) Hyperkalemia ICD Code: E87.5 - Hyperkalemia (5) Hyponatremia ICD Code: E87.1 - Hypo-osmolality and hyponatremia (6) CKD (chronic kidney disease) stage 3, GFR 30-59 ml/min ICD Code: N18.3 - Chronic kidney disease, stage 3 (moderate) Assessment and Plan Osteomyelitis L5 vertebra Patient underwent a CT-guided removal of fluid for culture as well as disc biopsy on 07/31/2017 Blood culture grew out strep anginousis Fluid cultures grew out skin pooja MRI of the lumbar spine repeated on 08/08 with L4-5 discitis with bilateral psoas abscess. Some progression compared to prior scan. continue IV Rocephin. neurosurgery and ID following. bacteremia with strep. continue antibiotics per ID. evaluated by GI for colonoscopy which the patient declined. Altered mental status- likely drug-induced.now improved. history of cocaine abuse with positive urine toxicology for cocaine during this hospitalization. s/p LP; with negative fluid culture so far. continue to monitor. psych consulted; patient is capable of making decisions. 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 Likely related to cocaine abuse Continue to follow trend DVT prophylaxis SCDs palliative care following. Discharge Planning not ready for discharge. Mainor Grace MD August 10, 2017 09:38
--- NOTE | 2017-08-10 10:28 | HHI.IDPN ---
Subjective Subjective Remarks ID COVERAGE Mr. Gee is a 57-year-old -Citizen Of [place] male with past medical history significant for rheumatoid arthritis on prednisone. From infectious disease standpoint his past medical history significant for prior history of strep epidural abscess as well as bacteremia treated with IV antibiotics and also needing L4 partial laminectomy in 2013 as well as an abscess on the skin of his back.. His past medical history is also significant for chronic kidney disease stage III, chronic back pain, cocaine abuse and tobacco abuse who presented to the emergency department with complaints of severe back pain. Patient is an extremely poor historian and reports that he has had a prior visit to the emergency room on July 23, 2017 with similar symptoms. An MRI of the L-spine did not show any evidence of infection patient was asked to follow-up with Dr. Pineda whom he has seen in the past. On arrival, BP 125/71, HR 86, O2 sat 100% RA, Afebrile. WBC 20.8. Na 128. K+ 5.5. Creatinine 2.84, previously 2.97 on 07/23/2017. INR 1.1. UA negative for UTI. 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 S/p Vanc/ Rocephin in ER. At the time of my evaluation patient is on a regular floor. Appears to be comfortable not in significant pain involving his extremities. Patient reports tingling numbness and extreme pain in his bilateral lower extremities right more than left. Patient denies any bowel bladder incontinence. Denies any decrease in perineal sensation. Infectious diseases consulted for evaluation and management of discitis and epidural abscess. Notes reviewed Afebrile No new complaints CSF C/S negative after 48 hours MRI repeat showing progression of infection, and dev of lenin psoas abscess Neurosurgery notes reviewed - awaiting plans of the fluid collections seen on MRI LP results noted, WBC only 5, but with low glucose and elevated protein Psych evaluation noted Antibiotics Ceftriaxone IV Current Medications Medications (Trade) Dose Ordered Sig/Manjit Route Start Time Stop Time Status Last Admin Sodium Chloride 1,000 ml @ 100 mls/hr Q10H IV 07/29/17 23:01 08/10/17 06:06 (NS Flush) 2 ml UNSCH PRN IV FLUSH 07/29/17 23:15 08/10/17 06:06 (NS Flush) 2 ml BID IV FLUSH 07/30/17 09:00 08/09/17 22:21 (Zofran Inj) 4 mg Q6H PRN IVP 07/29/17 23:15 (Tylenol) 650 mg Q6H PRN PO 07/29/17 23:15 08/07/17 22:22 (Emilie-Colace) 1 tab BID PO 07/30/17 09:00 08/10/17 09:20 (Milk Of Magnesia Liq) 30 ml Q12H PRN PO 07/29/17 23:15 (Senokot) 17.2 mg Q12H PRN PO 07/29/17 23:15 (Dulcolax Supp) 10 mg DAILY PRN RECTAL 07/29/17 23:15 (Lactulose Liq) 30 ml DAILY PRN PO 07/29/17 23:15 08/06/17 01:05 (Ativan Inj) 1 mg Q2H PRN IV PUSH 07/29/17 23:15 08/09/17 22:22 (Dilaudid Pf Inj) 0.5 mg Q4H PRN IV PUSH 08/01/17 09:00 08/10/17 09:21 (Tums Chew) 500 mg Q2H PRN CHEW 08/02/17 19:30 08/05/17 13:49 Ceftriaxone Sodium 2000 mg/ Sodium Chloride 100 ml @ 200 mls/hr Q12H IV 08/03/17 17:00 08/10/17 06:06 (Catapres) 0.1 mg Q6H PRN PO 08/04/17 15:30 08/06/17 23:44 (Lac-Hydrin 12% Lotion) 1 applic BID TOPICAL 08/04/17 21:00 08/10/17 09:22 (Pepcid) 20 mg BID PO 08/05/17 21:00 08/10/17 09:20 (Norvasc) 10 mg DAILY PO 08/06/17 11:00 08/10/17 09:20 (Vasotec Inj) 2.5 mg Q6H PRN IV PUSH 08/06/17 11:00 08/07/17 22:20 (Percocet 5-325 Mg) 1 tab Q4HR PRN PO 08/09/17 10:00 08/10/17 06:05 Lines Line sites with no e.o infection. Past Medical History reviewed. Allergies: Coded Allergies: *MDRO Multi-Drug Resistant Organism (Verified Adverse Reaction, Unknown, ) MRSA (leg wound) - 10/2006 MRSA PCR screen positive - 10/2014 Objective . Vital Signs Date Time Temp Pulse Resp B/P (MAP) Pulse Ox O2 Delivery O2 Flow Rate FiO2 08/10/17 08:00 98.6 100 18 116/69 (85) 100 08/10/17 04:00 98.9 100 19 137/79 (98) 94 08/10/17 00:45 97.9 101 19 141/89 (106) 95 08/09/17 21:20 98.4 103 18 140/87 (104) 94 08/09/17 15:44 97.8 104 20 139/91 (107) 98 08/09/17 11:33 97.8 102 22 136/91 (106) 95 . Laboratory Tests Test 08/09/17 05:38 Blood Urea Nitrogen 18 MG/DL Creatinine 1.46 MG/DL Random Glucose 73 MG/DL Calcium Level 8.3 MG/DL Sodium Level 137 MEQ/L Potassium Level 5.0 MEQ/L Chloride Level 103 MEQ/L Carbon Dioxide Level 26.2 MEQ/L Anion Gap 8 MEQ/L Estimat Glomerular Filtration Rate 61 ML/MIN Microbiology Date/Time Source Procedure Growth Status 08/08/17 15:42 Cerebral Spinal Fluid Lumbar Puncture Gram Stain - Final Resulted 08/08/17 15:42 Cerebral Spinal Fluid Lumbar Puncture CSF Culture - Preliminary NO GROWTH IN 48 HOURS. Resulted Imaging Last Impressions Needle Biopsy/Aspiration X-Ray 07/31/17 0000 Signed Impressions: Service Date/Time: Monday, July 31, 2017 13:29 - CONCLUSION: Uncomplicated needle biopsy of the L4/L5 disc space as above. Candelario Reina MD Lumbar Spine MRI 07/30/17 0000 Signed Impressions: Service Date/Time: Sunday, July 30, 2017 00:12 - CONCLUSION: 1. An apparent inflammatory phlegmon/abscess anterior to the L5 vertebral body with cortical irregularity along the anterior margin of L5 concerning for regional osteomyelitis. This appears to be confined to the prevertebral space. Area is incompletely evaluated without IV contrast. 2. Grade 1 anterolisthesis of L4 on 5 with bilateral facet hypertrophy at the same level results in moderately severe central spinal stenosis which is probably advanced enough to compromise central nerve roots. 3. 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 I believe the spinal canal is adequate at all levels except L4-5, however. 4. 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 No acute cardiopulmonary disease. Tanner Jones MD Abdomen/Pelvis CT 07/29/17 0000 Signed Impressions: Service Date/Time: Saturday, July 29, 2017 22:14 - CONCLUSION: 1. Significant new prevertebral soft tissue fullness and stranding centered at the L5 level. There is associated sclerosis and erosive changes in the anterior L5 vertebral body which appear unchanged from recent exams. Overall, findings are concerning for discitis and osteomyelitis. Consider repeat MRI examination for further evaluation. 2. 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 However, evaluation is significantly limited due to lack of IV contrast on this exam. This was not present on remote prior CT exam. A mycotic aneurysm cannot be entirely excluded. Contrast enhanced examination would be greatly beneficial in further evaluation. 3. Nodular appearing liver contour consistent with cirrhosis. 4. IVC filter in place. 5. Cholelithiasis. Tanner Jones MD Physical Exam GENERAL: resting, awakens easily when stimulated, NAD SKIN: No obvious rash. HEAD: Atraumatic. Normocephalic. No temporal or scalp tenderness. EYES: No scleral icterus. No injection or drainage. ENT: No gross bleeding. Moist mucosa NECK: Patient was moving his neck is in all 4 directions. No rigidity CARDIOVASCULAR: regular RESPIRATORY: Clear posteriorly GASTROINTESTINAL: Not tender, (+) BS MUSCULOSKELETAL: No pedal edema NEUROLOGICAL: Awakens easily, moves all extremities Psych cooperative. IV line sites with no e.o infection Assessment & Plan Remarks Strep bacteremia, probable endocarditis Epidural abscess Discitis. 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 Immune compromised host. Acute on chronic kidney disease Hyperkalemia Recs Continue ceftriaxone IV Follow C/S Neurosurgery following - awaiting decision regarding fluid collection: IR vs surgery Repeat labs this Monitor progress Dr Ferreira available if needed this Dr Goldstein back on Sunday Aubrie Moctezuma MD August 10, 2017 10:28
--- NOTE | 2017-08-10 11:49 | HHI.HCPN ---
Reason for visit a. To assist with evaluation and management of symptoms including: Pain, anxiety,debility b. To assist medical decision maker(s) with: better understanding of current medical conditions; weighing benefits/burdens of medical treatment options; making medical treatment decisions. . Subjective/Interval History Patient's primary complaint continues to be his back pain. He describes this as continuous. He says it is level 9-10 frequently. It is only helped by the parenteral hydromorphone and that only brings it down to a level 8 at best. Anxiety increases when pain is inadequately managed. Patient reports his appetite is good. He tells me bowels are moving adequately and he has no difficulty with urination. [facility] Vascular surgery has also been contacted. I was at bedside when Dr. Sanchez spoke with the patient. He indicated it would probably be a two hour surgery involving both vascular surgery and neurosurgery approached via the abdomen to have the best chance of success. Dr. Sanchez has expressed concerns that completely eradicating the infection will likely be very challenging even with surgery. He will consult further with neurosurgery. Patient has told me that he is open to another surgical procedure but wants it only if it will completely take care of the problem. He says, "I've been through this before." I have also spoken with Dr. Moctezuma (ID) who confirms that the patient will not improve without drainage of the abscess one way or another. . Family/friend interactions Nurses received a call from a Ms Patricia Joy this AM who they said was quite upset and wanted to speak with someone. I asked the patient if he wanted me to speak to her and if I could share any/ all of his health care information. He provided permission and I called Ms. Joy. Ms. Joy explained that the patient's and son were contacted and said they did not want to be involved with Mr. Gee's care at this time and did not want to be making any of his health care decisions. She wanted to arrange for Jennifer Manuel to serve as the surrogate. I explained that the patient had already signed a form designating Mr. Manuel as his surrogate. I explained that if, in the future, the patient would become unable to make his own health care decisions that we would turn to Mr. Manuel. Ms. Joy was relieved to hear this. I also brought her up to date regarding the severity of the infection and the need to drain the pus. I explained that without the surgery, we would not be able to eradicate the infection and the patient would . But, even with the surgery, there was no guarantee that we could eradicate the infection completely as the patient understandably wants. We discussed the challenge of pain control. Ms. Joy wants to be allowed to visit the patient. She was grateful for the discussion and the information exchange. . . Advance Directives Living Will: Never completed Health Care Surrogate: Copy in medical record Durable Power of Office Rep: Never completed Advance Directive Specifics Date completed: 08/09/2017 . Health Care Surrogate(s): Healthcare surrogate-Friend- Jennifer Mireille- [phone] Alternate healthcare surrogate -Son-Kalyan Gee Bi-[phone]/ 3rd choice- Alternate healthcare udubcnfnd-as-tunp -Kelly Gee . Documented care wishes: No written documentation of health care goals/preferences . Objective Vital Signs Date Time Temp Pulse Resp B/P (MAP) Pulse Ox O2 Delivery O2 Flow Rate FiO2 08/10/17 08:00 98.6 100 18 116/69 (85) 100 08/10/17 04:00 98.9 100 19 137/79 (98) 94 08/10/17 00:45 97.9 101 19 141/89 (106) 95 08/09/17 21:20 98.4 103 18 140/87 (104) 94 08/09/17 15:44 97.8 104 20 139/91 (107) 98 08/09/17 11:33 97.8 102 22 136/91 (106) 95 Intake & Output 08/10/17 08/10/17 07:00 19:00 Intake Total 1700 ml Output Total 2850 ml Balance -1150 ml Intake Oral 1700 ml Output Urine Total 2850 ml # Bowel Movements 0 . Physical Exam CONSTITUTIONAL/GENERAL: This is an adequately nourished patient. He grimaces with pain while lying on his back. TUBES/LINES/DRAINS:PIV SKIN: Dry. No jaundice, rashes, or lesions. No wounds seen anteriorly. Skin temperature appropriate. Not diaphoretic. EYES: Pupils equal. Extraocular motions intact. No scleral icterus. No injection or drainage. Fundi not examined. ENT: Hearing grossly normal. Nose without bleeding or purulent drainage. Moist oral mucosa NECK: Trachea midline. Supple, nontender. CARDIOVASCULAR: S1, S2 normal, no audible murmurs, gallops, or rubs. No JVD. RESPIRATORY/CHEST: Symmetric, unlabored respirations. Clear to auscultation. No wheezes, rales, or rhonchi. GASTROINTESTINAL: Abdomen soft, non-tender, nondistended. No guarding. Bowel sounds present. GENITOURINARY: Without palpable bladder distension. MUSCULOSKELETAL: Extremities without clubbing, cyanosis, or edema. Tenderness over low back. NEUROLOGICAL: Awake and alert. Oriented to self, place and situation. Motor and sensory grossly within normal limits. Follows commands. Moves all extremities. PSYCHIATRIC: No obvious anxiety/depression. No apparent hallucinations or other psychotic thought process. . Diagnostic Tests Laboratory Laboratory Tests Test 08/08/17 15:42 08/09/17 05:38 CSF Volume (Tube 1) 2.0 ML CSF Supernatant Color (tube 1) CLEAR (CLEAR) CSF Gross Blood (Tube 1) 0 (0) CSF Volume (Tube 2) 1.0 ML CSF Supernatant Color (tube 2) CLEAR (CLEAR) CSF Gross Blood (Tube 2) 0 (0) CSF Volume (Tube 3) 1.0 ML CSF Supernatant Color (tube 3) CLEAR (CLEAR) CSF Volume (Tube 4) 3.0 ML CSF Supernatant Color (tube 4) CLEAR (CLEAR) CSF WBC (Tube 4) 5 /MM3 (0-10) CSF RBC (Tube 4) 0 /MM3 (NONE) CSF Neutrophils 11 % CSF Lymphocytes 55 % CSF Monocytes 20 % CSF Histiocytes 14 % CSF Glucose 35 MG/DL (40-80) CSF Total Protein 103.7 MG/DL (15.0-45.0) Blood Urea Nitrogen 18 MG/DL (7-18) Creatinine 1.46 MG/DL (0.60-1.30) Random Glucose 73 MG/DL (74-106) Calcium Level 8.3 MG/DL (8.5-10.1) Sodium Level 137 MEQ/L (136-145) Potassium Level 5.0 MEQ/L (3.5-5.1) Chloride Level 103 MEQ/L (98-107) Carbon Dioxide Level 26.2 MEQ/L (21.0-32.0) Anion Gap 8 MEQ/L (5-15) Estimat Glomerular Filtration Rate 61 ML/MIN (>89) . Result Diagram: 08/06/17 1208 08/09/17 0538 Microbiology Microbiology Date/Time Source Procedure Growth Status 08/08/17 15:42 Cerebral Spinal Fluid Lumbar Puncture Gram Stain - Final Resulted 08/08/17 15:42 Cerebral Spinal Fluid Lumbar Puncture CSF Culture - Preliminary NO GROWTH IN 48 HOURS. Resulted . Imaging Last Impressions Lumbar Spine MRI 08/08/17 0000 Signed Impressions: Service Date/Time: Tuesday, August 08, 2017 13:37 - CONCLUSION: Substantial progression as described above. Roly Reina MD FACR Lumbar Puncture Fluoroscopy 08/08/17 0000 Signed Impressions: Service Date/Time: Tuesday, August 08, 2017 15:42 - CONCLUSION: Uncomplicated fluoroscopically guided lumbar puncture. Fady Chan MD Chest X-Ray 08/07/17 0000 Signed Impressions: Service Date/Time: Monday, August 07, 2017 14:51 - CONCLUSION: 1. No acute findings. Elevated right hemidiaphragm. Tortuous aorta. Jack Travis MD Needle Biopsy/Aspiration X-Ray 07/31/17 0000 Signed Impressions: Service Date/Time: Monday, July 31, 2017 13:29 - CONCLUSION: Uncomplicated needle biopsy of the L4/L5 disc space as above. Candelario Reina MD Abdomen/Pelvis CT 07/29/17 0000 Signed Impressions: Service Date/Time: Saturday, July 29, 2017 22:14 - CONCLUSION: 1. Significant new prevertebral soft tissue fullness and stranding centered at the L5 level. There is associated sclerosis and erosive changes in the anterior L5 vertebral body which appear unchanged from recent exams. Overall, findings are concerning for discitis and osteomyelitis. Consider repeat MRI examination for further evaluation. 2. 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 However, evaluation is significantly limited due to lack of IV contrast on this exam. This was not present on remote prior CT exam. A mycotic aneurysm cannot be entirely excluded. Contrast enhanced examination would be greatly beneficial in further evaluation. 3. Nodular appearing liver contour consistent with cirrhosis. 4. IVC filter in place. 5. Cholelithiasis. Tanner Jones MD . Procedures 08/08/17 needle biopsy of the L4/L5 disc space/aspiration x-ray . Assessment and Plan Disease Oriented Problem List: (1) Osteomyelitis (2) Cocaine abuse (3) Mycotic aneurysm (4) CKD (chronic kidney disease) stage 3, GFR 30-59 ml/min Comment: Improving. . (5) Hypertension (6) Rheumatoid arthritis Symptom Scale: (1) Pain 0-10 Scale: 10 Comment: All his pain complaints are low back. Inadequately helped by current regimen. Pain normally 9-10 decreasing to 8-9 after parenteral hydromorphone. . . (2) Anxiety Comment: Patient reported to psychiatry that he was feeling anxious . (3) Debility Comment: Progressive . Pertinent Non-Medical Issues Psychosocial:Patient was born and raised in [place]. Patient is . Patient's highest level of education is high school. He is currently unemployed and disabled. Patient has 1 son Gerard Biggs Jr. He has been living with his nephew Jennifer Kendrick for the past 4 years. Spiritual: Patient is Protestant Legal: No living will. Health care surrogate designation completed 08/09/17 -- he wants his friend Jennifer Manuel to serve. Ethical issues impacting care: None identified at this time . Important Contacts Mireille Rodriguez (Health care surrogate and close friend) -[phone]/ (he has been living with patient for the past 4 years) GerardKalyan Mary Reyes (son and alternate [facility]) - [phone] Cell/[phone] work Kelly Gee (ex- and 2nd alternate [facility]) Patriciaclint Joy ( of Jennifer Manuel) [phone] Brother- Miles Gee [phone] PATIENT HAS GIVEN PERMISSION TO DISCUSS DETAILS OF HIS CASE AND CARE WITH THE ABOVE. . . Prognosis Mr. Gee is a 57-year-old male with a past medical history significant for chronic back pain, lumbar osteomyelitis and discitis s/p L4-L5 laminectomy 2013 , rheumatoid arthritis, hyperlipidemia, chronic kidney stage III, cocaine abuse and tobacco abuse. Patient presented to the ER on 07/29/17 with complaints of severe back pain. Diagnostic tests revealed lumbar osteomyelitis with retroperitoneal/prevertebral abscess. Clinical course complicated with pain, anxiety and patient's of care and medication. Imaging has shown worsening infection over course of hospitalization. He will require procedural drainage of the abscess. Patient has stated he would not want the surgery it is only going to help him temporarily. Without surgery, infection will spread and take his life. If infection can be drained but not eradicated, he will likely gain some time but will likely still of this problem. Patient may choose against surgery if benefits/burdens of the options are explained. Should he choose NOT to have surgery, he would be hospice eligible. . . Code Status: Full Code Plan PLAN: CODE STATUS: Full code Legal decision maker: Patient has been deemed capacitated to participate in medical decision making by psychiatry on 08/08/17. In the event that he is incapacitated patient has designated his friend Jennifer Kendrick to serve as his health care surrogate, and his son Gerard Hull Jr as his alternate healthcare surrogate and if the above mentioned are not able to serve, he chose his ex- Kelly Gee as his other alternate Healthcare Surrogate. Goals: Aggressive. However, patient has said he doesn't want surgery and less the surgeons think they will "solve" the problem . SYMPTOMS: * Pain: Patient complaining of severe lower back pain. MRI lumbar revealed lumbar osteomyelitis with retroperitoneal/prevertebral abscess. Patient on antibiotics. Patient endorsing pain to his lower back. Patient reports pain levels hitting 9-10 most of day. With the hydromorphone dosing, pain levels only come down to 8. It has been difficult to know how to address the pain given the recent confusion and the illicit drugs apparently coming in from the outside. * Anxiety: Patient reported to psychiatry that he feels anxious. Has lorazepam ordered q 2 hours prn. Appears to be adequate. No further recommendation at this time. * Debility: Patient is being progressively getting weaker and not able to ambulate long distances at home due to severe back pain. According to family he has lost a few pounds in the past weeks leading up to admission. Ambulated at home with a cane. Physical therapy on board. == Have spoken to Dr. Mauricio to see if we can allow some sort of supervised visit from his health care surrogate (Jennifer Mar) and the surrogate's partner (Patricia Joy) == Without surgery, infection will spread and take his life. If infection can be drained but not eradicated, he will likely gain some time but will likely still of this problem. Patient may choose against surgery if benefits/burdens of the options are explained. It will be important for patient to be full informed regarding the likelihood that surgery will completely eradicate the infection. If the patient , in weighing risks and benefits decides against surgery, he would be a candidate for hospice care. == We could certainly up his prn hydrormophone dose to 0.75 mg at any time which may provide some additional relief while surgery is being contemplated. Is patient decides against surgery and desired primarily comfort care, would probably titrate methadone as his long acting medication given possible help with the neuropathic component and especially in light of his impaired kidney function. == Palliative care will continue to follow to assist with symptom management and to further clarify goals of medical treatment as the clinical course evolves. . Time Spent Total Floor Time (mins): 60 (Total floor time included chart review; patient exam; discussion with Dr. Moctezuma; discussion with Dr. Sanchez; discussion with Dr. Grace; above referenced telephone conversation with Ms. Joy. ) Face to Face Time (mins): 15 >50% Counseling/Coord of Care: Yes Attestation To help prompt me to consider important information that might be impacting today's encounter and assessment, information from prior notes written by myself or my colleagues may have been "brought forward" into today's note. My signature on this note, however, is an attestation that I personally performed the exam, history, and/or decision-making noted today, and, unless otherwise indicated, the interactions with patient, family, and staff as well as the review of records all occurred today. I also attest that the listed assessment and stated plan reflect my best clinical judgment today based on the combination of historical information, prior notes, and today's exam/ interactions. When time spent is documented, it refers only to time spent today by the signer, or if indicated, combined time spent today by collaborating physician/nurse practitioner. . Matt Toney MD August 10, 2017 11:48
[2017-08-10 12:00] VITALS: PULSE 100; RESP 18; TEMP 98.8; O2SAT 92
--- NOTE | 2017-08-10 14:27 | PD.CAR.PN ---
CVT Progress Note Subjective/Hospital Course: Referral received Studies reviewed Full consult to follow Oanh Craig 08/10/2017 Patient with retroperitoneal infection involving the vertebra and paraspinal muscles and psoas muscles extending toward the pelvis, with multiple abscesses throughout I have discussed the care with Dr. Felipe, Dr. Toney and the patient At this point the most preferred way to access this would be through a left preperitoneal approach in the same fashion we access abdominal aorta for preperitoneal lateral aneurysmorrhaphy. This incision would give quite plenty of space and access to drain all this. While technically this is a quite advantageous approach, I have to stress that ability to completely eliminate the infection and cure the patient permanently is very limited. The procedure is mainly meant to contain the infection clean everything up and minimize the sequela of the same If patient agrees with surgery has to be cleared that this is not most likely going to cure him but will definitely slow the infection down set it back and make it controllable. In addition the surgery itself carries obviously inherent risks of prolonged morbidity and mortality ranging in about 5-10% range The other option is not to do anything and make patient comfortable with palliative care but this will definitely leave the patient's demise I will be happy to discuss this with other family members this patient may desire and I will definitely be available for the surgery any time Objective: Vital Signs Date Time Temp Pulse Resp B/P (MAP) Pulse Ox O2 Delivery O2 Flow Rate FiO2 08/10/17 12:00 98.8 100 18 92 08/10/17 08:00 98.6 100 18 116/69 (85) 100 08/10/17 04:00 98.9 100 19 137/79 (98) 94 08/10/17 00:45 97.9 101 19 141/89 (106) 95 08/09/17 21:20 98.4 103 18 140/87 (104) 94 08/09/17 15:44 97.8 104 20 139/91 (107) 98 Result Diagram: 08/06/17 1208 08/09/17 0538 Felicia Sanchez MD August 10, 2017 14:27
--- NOTE | 2017-08-10 14:54 | HHI.NSPN ---
(Apolinar Argueta) History Chief Complaint: Low back pain (Apolinar Argueta) Interval History 07/30: 57-year-old gentleman with a history of lumbar osteomyelitis and discitis with abscess who underwent L4-[address] Felipe from neurosurgery. He has a chronic history of low back pain and more recent MRI scan shows degenerative L4-5 stenosis with facet hypertrophy and grade 1 spondylolisthesis along with some possible L5 anterior vertebral body osteomyelitis with the prevertebral retroperitoneal abscess. Patient was scheduled to follow-up with Dr. Felipe but returned to the emergency room for persistent back pain. Currently he is very sedated but does awaken and relates that his pain is controlled. He has been ambulating with a cane on a chronic basis. No bowel bladder incontinence or any lower extremity weakness noted. Dr. Gamez from neurosurgery coverage over the weekend was consulted and deferred further management to Dr. Felipe who is currently out of town. 08/06: When seen this morning the patient is asleep in bed. He does awaken to voice but is drowsy after that. He complains of pain to the lower back that does radiate down both lower extremities to the knees. He denies any numbness or tingling to the lower extremities. He does have low lumbar tenderness to palpation. He did not have any apparent lower extremity sensory deficits. His motor strength exam was incomplete due to patient not fully participating due to pain and drowsiness. 08/08/2017: Relatively awake and alert. Status post lumbar puncture 08/10: This afternoon the patient is asleep but awakens to voice. After that he is alert and readily interacts. He does say he has some pain to the low back and into the legs but he denies any numbness or tingling. No sensorimotor deficits are noted upon examination. (Apolinar Argueta) Exam Results 08/08/17 08/08/17 08/09/17 08/09/17 08/10/17 08/10/17 06:00 18:00 06:00 18:00 06:00 18:00 Intake Total 600 ml 1477 ml 1700 ml Output Total 400 ml 1750 ml 200 ml 800 ml 2850 ml Balance -400 ml -1150 ml -200 ml 677 ml -1150 ml Intake Oral 600 ml 480 ml 1700 ml IV Total 997 ml Output Urine Total 400 ml 1750 ml 200 ml 800 ml 2850 ml # Voids 2 # Bowel Movements 2 0 1 0 Vital Signs Date Time Temp Pulse Resp B/P (MAP) Pulse Ox O2 Delivery O2 Flow Rate FiO2 08/10/17 12:00 98.8 100 18 92 08/10/17 08:00 98.6 100 18 116/69 (85) 100 08/10/17 04:00 98.9 100 19 137/79 (98) 94 08/10/17 00:45 97.9 101 19 141/89 (106) 95 08/09/17 21:20 98.4 103 18 140/87 (104) 94 08/09/17 15:44 97.8 104 20 139/91 (107) 98 08/09/17 11:33 97.8 102 22 136/91 (106) 95 08/09/17 07:35 165/100 (121) 08/09/17 07:34 97.9 113 20 173/105 (127) 90 08/09/17 00:00 97.6 110 16 136/86 (103) 95 08/08/17 20:00 97.4 106 16 142/72 (95) 95 08/08/17 17:00 98.6 102 20 112/64 (80) 100 08/08/17 12:17 98.5 106 20 114/73 (87) 93 08/08/17 08:31 98.7 108 20 144/92 (109) 93 08/08/17 00:00 98.4 108 16 168/80 (109) 95 08/07/17 20:00 98.6 110 16 178/116 (136) 94 (Apolinar Argueta) Physical Examination GENERAL: Asleep but awakens to voice. Alert after that and readily interacts. Affect somewhat flat. No apparent distress. SKIN: No rashes, ecchymoses or lesions. Cool and dry. HEENT: Normocephalic, atraumatic. MUSCULOSKELETAL: HUANG spontaneously & purposefully. Right thigh minimally TTP. No evident clubbing or deformity. Thoracic spine NTTP. Inferior lumbar spine minimally TTP. NEUROLOGICAL: Asleep but awakens to voice, alert after that. Oriented to person, place & time. Speech clear & appropriate. Follows commands w/o difficulty. Sensation intact to light touch to the lower extremities. Muscle strength is 5/5 to the lower extremities (Apolinar Argueta) Lab, Micro, Other Results Recent Impressions Lumbar Spine MRI 08/08/17 0000 Signed Impressions: Service Date/Time: Tuesday, August 08, 2017 13:37 - CONCLUSION: Substantial progression as described above. Roly Reina MD FACR Lumbar Puncture Fluoroscopy 08/08/17 0000 Signed Impressions: Service Date/Time: Tuesday, August 08, 2017 15:42 - CONCLUSION: Uncomplicated fluoroscopically guided lumbar puncture. Fady Chan MD Laboratory Tests Test 08/08/17 15:42 08/09/17 05:38 CSF Volume (Tube 1) 2.0 ML CSF Supernatant Color (tube 1) CLEAR CSF Gross Blood (Tube 1) 0 CSF Volume (Tube 2) 1.0 ML CSF Supernatant Color (tube 2) CLEAR CSF Gross Blood (Tube 2) 0 CSF Volume (Tube 3) 1.0 ML CSF Supernatant Color (tube 3) CLEAR CSF Volume (Tube 4) 3.0 ML CSF Supernatant Color (tube 4) CLEAR CSF WBC (Tube 4) 5 /MM3 CSF RBC (Tube 4) 0 /MM3 CSF Neutrophils 11 % CSF Lymphocytes 55 % CSF Monocytes 20 % CSF Histiocytes 14 % CSF Glucose 35 MG/DL CSF Total Protein 103.7 MG/DL Blood Urea Nitrogen 18 MG/DL Creatinine 1.46 MG/DL Random Glucose 73 MG/DL Calcium Level 8.3 MG/DL Sodium Level 137 MEQ/L Potassium Level 5.0 MEQ/L Chloride Level 103 MEQ/L Carbon Dioxide Level 26.2 MEQ/L Anion Gap 8 MEQ/L Estimat Glomerular Filtration Rate 61 ML/MIN (Apolinar Argueta) Medical Decision Making Impression and Plan Impression: 1, 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 History of chronic low back pain. 3. L4-5 moderate spinal stenosis w/grade 1 spondylolisthesis 4. Prevertebral/retroperitoneal abscess 5. Possible L5 anterior osteomyelitis w/elevated sed rate and white count The patient is asleep but awakens to voice. He is alert after that. He does have low back tenderness. No sensorimotor deficits were noted. . Afebrile the past 24 hrs. Tachycardia. Improved SBP. CSF lumbar puncture () w/rare WBCs & no organisms seen on Gram stain final , culture w/no growth x48 hrs, preliminary. MRI lumbar spine demonstrated increasing soft tissue signal to the back muscle from L1-L5. Increased marrow edema at L5 and to a lesser degree at L4. Increased disc space signal. Large bilateral psoas abscesses extending from L2 on the left into the iliopsoas and L3 on the right to the pelvis. Represents substantial progression. No significant epidural component. Plan: Discussed the plan of care with the patient who verbalised his understanding and his questions were answered. Primary management per Hospitalist. Antibiotics per Infectious Disease. Due to continued progression of the bilateral psoas abscesses the plan is to take the patient to the operating room on Sunday. Will intermittently follow until then. (Apolinar Argueta) Attending Statement The exam, history, and the medical decision-making described in the above note were completed with the assistance of the mid-level provider. I reviewed and agree with the findings presented. I attest that I had a [id number] encounter with the patient on the same day, and personally performed and documented my assessment and findings in the medical record. 08/10/2017 I discussed the patient with general surgery who saw him along with palliative care physicians. They had a discussion regarding options for surgical intervention versus conservative treatment and observation and comfort measures. Following this I had an in person conversation with the patient at length regarding the progression of the infection and treatment options. He is advised that surgery may improve the short-term course of the infection can help keep him more comfortable over the short term, however it is unlikely that surgery will lead to a total resolution of the infectious process. The possibility of an anterior surgical approach to evacuate the abscess followed by possible posterior instrumentation and fusion after an additional course of antibiotics has been discussed. The risks and potential complications of the procedure has been explained. His plastic card grader cardroom was in the room during the conversation. He requested that we wait until his family comes to the hospital , potentially in the next couple of days, in order to help him in the decision- making process. I advised the patient and the nursing staff that I will be available over the weekend to discuss treatment options with them. Surgery was held pending discussion with the family per patient request. (Guero Felipe MD) Apolinar Argueta August 10, 2017 14:54 Guero Felipe MD August 13, 2017 08:27
[2017-08-10 16:00] VITALS: BP 123/79; PULSE 101; RESP 18; TEMP 98.6; O2SAT 95
[2017-08-10 20:30] VITALS: BP 138/88; PULSE 104; RESP 19; TEMP 97.9; O2SAT 96
[2017-08-11 00:50] VITALS: BP 140/67; PULSE 106; RESP 20; TEMP 98.8; O2SAT 97
[2017-08-11] MEDS: oxyCODONE/ACETAMINOPHEN 5 MG/325 MG TAB PO PRN ×6 (03:07→23:51)
[2017-08-11 04:20] VITALS: BP 129/68; PULSE 101; RESP 20; TEMP 98; O2SAT 96
[2017-08-11 07:31] LABS: AUTOMATED NEUTROPHIL # 4.7 TH/MM3 (1.8-7.7); BASOPHIL # 0.1 TH/MM3 (0-0.2); BASOPHIL % 1.3 % (0.0-2.0); EOSINOPHIL # 0.3 TH/MM3 (0-0.4); EOSINOPHIL % 4.8 % (0.0-4.0); HEMATOCRIT 27.2 % (39.0-51.0); HEMOGLOBIN 8.9 GM/DL (13.0-17.0); LYMPH % 11.4 % (9.0-44.0); LYMPHOCYTE # 0.7 TH/MM3 (1.0-4.8); MEAN CELL VOLUME 86.9 FL (80.0-100.0); MEAN CORPUSCULAR HEMOGLOBIN 28.4 PG (27.0-34.0); MEAN CORPUSCULAR HGB CONC 32.7 % (32.0-36.0); MEAN PLATELET VOLUME 7.7 FL (7.0-11.0); MONO % 10.9 % (0.0-8.0); MONOCYTE # 0.7 TH/MM3 (0-0.9); NEUT % 71.6 % (16.0-70.0); PLATELET COUNT 135 TH/MM3 (150-450); RED BLOOD COUNT 3.13 MIL/MM3 (4.50-5.90); RED CELL DISTRIBUTION WIDTH 15.6 % (11.6-17.2); WHITE BLOOD COUNT 6.5 TH/MM3 (4.0-11.0)
[2017-08-11 08:04] LABS: ALBUMIN 1.9 GM/DL (3.4-5.0); ALT (GPT) 19 U/L (12-78); AST (GOT) 38 U/L (15-37); BICARBONATE 27.2 MEQ/L (21.0-32.0); BLOOD UREA NITROGEN 20 MG/DL (7-18); CALCIUM 8.1 MG/DL (8.5-10.1); CHLORIDE 103 MEQ/L (98-107); CREATININE 1.74 MG/DL (0.60-1.30); GLOMERULAR FILTRATION RATE 50 ML/MIN (>89); GLUCOSE,RANDOM 73 MG/DL (74-106); SODIUM (NA) 138 MEQ/L (136-145)
[2017-08-11 08:07] LABS: ALKALINE PHOSPHATASE 170 U/L (45-117); TOTAL BILIRUBIN ADULT 0.5 MG/DL (0.2-1.0); TOTAL PROTEIN 8.4 GM/DL (6.4-8.2)
[2017-08-11] MEDS: HYDROmorphone HCL PF 0.5 MG/0.5 ML SYRINGE IV PUSH PRN ×4 (08:48→21:21)
[2017-08-11] MEDS: DOCUSATE SODIUM 50 MG/SENNA 8.6 MG TAB PO SCH ×2 (08:50→21:19)
[2017-08-11] MEDS: FAMOTIDINE 20 MG TAB PO SCH ×2 (08:50→21:19)
[2017-08-11] MEDS: SODIUM CHLORIDE 0.9% FLUSH 10 ML FLUSH IV FLUSH SCH ×2 (08:50→21:22)
[2017-08-11] MEDS: LACTIC ACID (AMMONIUM LACTATE) 12% LOTION 225 GM BTL TOPICAL SCH ×2 (08:53→21:26)
--- NOTE | 2017-08-11 09:40 | HHI.PR ---
Subjective Remarks in no acute distress. pain seems to be controlled. no fever. awaiting surgery on Sunday. Objective Vitals Vital Signs Date Time Temp Pulse Resp B/P (MAP) Pulse Ox O2 Delivery O2 Flow Rate FiO2 08/11/17 04:20 98.0 101 20 129/68 (88) 96 08/11/17 00:50 98.8 106 20 140/67 (91) 97 08/10/17 20:30 97.9 104 19 138/88 (105) 96 08/10/17 16:00 98.6 101 18 123/79 (94) 95 08/10/17 12:00 98.8 100 18 92 I/O 08/10/17 08/10/17 08/10/17 08/11/17 08/11/17 08/11/17 07:00 15:00 23:00 07:00 15:00 23:00 Intake Total 850 ml 800 ml 900 ml Output Total 2450 ml 400 ml 3000 ml Balance -1600 ml 400 ml -2100 ml Intake Oral 850 ml 800 ml 900 ml Output Urine Total 2450 ml 400 ml 3000 ml # Voids 4 # Bowel Movements 0 0 3 Result Diagram: 08/11/1761208/11/17612 Imaging Last Impressions Lumbar Spine MRI 08/08/17 0000 Signed Impressions: Service Date/Time: Tuesday, August 08, 2017 13:37 - CONCLUSION: Substantial progression as described above. Roly Reina MD FACR Lumbar Puncture Fluoroscopy 08/08/17 0000 Signed Impressions: Service Date/Time: Tuesday, August 08, 2017 15:42 - CONCLUSION: Uncomplicated fluoroscopically guided lumbar puncture. Fady Chan MD Chest X-Ray 08/07/17 0000 Signed Impressions: Service Date/Time: Monday, August 07, 2017 14:51 - CONCLUSION: 1. No acute findings. Elevated right hemidiaphragm. Tortuous aorta. Jack Travis MD Needle Biopsy/Aspiration X-Ray 07/31/17 0000 Signed Impressions: Service Date/Time: Monday, July 31, 2017 13:29 - CONCLUSION: Uncomplicated needle biopsy of the L4/L5 disc space as above. Candelario Reina MD Abdomen/Pelvis CT 07/29/17 0000 Signed Impressions: Service Date/Time: [place], July 29, 2017 22:14 - CONCLUSION: 1. Significant new prevertebral soft tissue fullness and stranding centered at the L5 level. There is associated sclerosis and erosive changes in the anterior L5 vertebral body which appear unchanged from recent exams. Overall, findings are concerning for discitis and osteomyelitis. Consider repeat MRI examination for further evaluation. 2. 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 However, evaluation is significantly limited due to lack of IV contrast on this exam. This was not present on remote prior CT exam. A mycotic aneurysm cannot be entirely excluded. Contrast enhanced examination would be greatly beneficial in further evaluation. 3. Nodular appearing liver contour consistent with cirrhosis. 4. IVC filter in place. 5. Cholelithiasis. Tanner Jones MD Objective Remarks GENERAL: This is a well-nourished, well-developed patient, in no apparent distress. CARDIOVASCULAR: Regular rate and regular rhythm without murmurs, gallops, or rubs. RESPIRATORY: Clear to auscultation. Breath sounds equal bilaterally. No wheezes , rales, or rhonchi. GASTROINTESTINAL: Abdomen soft, non-tender, nondistended. Normal, active bowel sounds MUSCULOSKELETAL: Extremities without clubbing, cyanosis, or edema. NEURO: lethargic but arousable. Medications and IVs Inpatient Medications Acetaminophen (Tylenol) 650 mg Q6H PRN PO FEVER/PAIN SCALE 1 TO 2 Last administered on 08/07/17at 22:22; Start 07/29/17 at 23:15 Amlodipine Besylate (Norvasc) 10 mg DAILY PO Last administered on 08/11/17at 08: 51; Start 08/06/17 at 11:00 Bisacodyl (Dulcolax Supp) 10 mg DAILY PRN RECTAL SEVERE CONSITIPATION/ IF NPO ; Start 07/29/17 at 23:15 Calcium Carbonate (Tums Chew) 500 mg Q2H PRN CHEW indigestion Last administered on 08/05/17at 13:49; Start 08/02/17 at 19:30 Cefepime HCl 1000 mg/Sodium Chloride 100 ml @ 200 mls/hr Q12H IV Last administered on 08/01/17at 21:37; Start 07/30/17 at 09:00; Stop 08/02/17 at 06:53; Status DC Ceftriaxone Sodium 2000 mg/ Sodium Chloride 100 ml @ 200 mls/hr Q12H IV Last administered on 08/10/17 16:23; Start 08/03/17 at 17:00 Clonidine (Catapres) 0.1 mg ONCE ONCE PO Last administered on 08/06/17 06:45; Start 08/06/17 at 06:45; Stop 08/06/17 at 06:46; Status DC Dexamethasone Sodium Phosphate (Decadron Inj) 8 mg ONCE ONCE IV PUSH Last administered on 07/29/17 20:42; Start 07/29/17 at 20:15; Stop 07/29/17 at 20:16 ; Status DC Enalaprilat (Vasotec Inj) 2.5 mg Q6H PRN IV PUSH SBP > 165 Last administered on 08/07/17 22:20; Start 08/06/17 at 11:00 Famotidine (Pepcid) 20 mg BID PO Last administered on 08/11/17 08:50; Start at 21:00 Hydralazine HCl (Apresoline Inj) 10 mg Q4H PRN IV PUSH SBP > 165; Start at 10:00; Stop 08/06/17 at 11:01; Status DC Hydromorphone HCl (Dilaudid Pf Inj) 0.5 mg Q4H PRN IV PUSH BREAKTHROUGH PAIN Last administered on 08/11/17 08:48; Start 08/01/17 at 09:00 Lactic Acid (Lac-Hydrin 12% Lotion) 1 applic BID TOPICAL Last administered on 08:53; Start 08/04/17 at 21:00 Lactulose (Lactulose Liq) 30 ml DAILY PRN PO SEVERE CONSITIPATION/ IF PO Last administered on 08/06/17 01:05; Start 07/29/17 at 23:15 Lorazepam (Ativan Inj) 1 mg Q2H PRN IV PUSH AGITATION/WITHDRAWAL Last administered on 08/09/17 22:22; Start 07/29/17 at 23:15 Magnesium Hydroxide (Milk Of Magnesia Liq) 30 ml Q12H PRN PO Mild constipation ; Start 07/29/17 at 23:15 Morphine Sulfate (Morphine Inj) 2 mg Q3H PRN IV PUSH Pain 6-10 Last administered on 5/2/18at 01:54; Start 07/30/17 at 20:45; Stop 08/01/17 at 08:56; Status DC Ondansetron HCl (Zofran Inj) 4 mg Q6H PRN IVP NAUSEA OR VOMITING; Start at 23:15 Oxycodone HCl (Roxicodone) 5 mg ONCE ONCE PO Last administered on 07/31/17at 22: 40; Start 07/31/17 at 22:15; Stop 07/31/17 at 22:18; Status DC Oxycodone/ Acetaminophen (Percocet 5-325 Mg) 1 tab Q4HR PRN PO PAIN 4-10 Last administered on 08/11/17at 06:31; Start 08/09/17 at 10:00 Oxycodone/ Acetaminophen (Percocet 10-325 Mg) 1 tab Q4H PRN PO PAIN SCALE 4 TO 10 Last administered on 08/06/17at 05:36; Start 08/01/17 at 09:00; Stop 08/09/17 at 09:39; Status DC Pharmacy Profile Note 0 ml @ 0 mls/hr UNSCH OTHER ; Start 07/29/17 at 23:15; Stop 08/06/17 at 14:40; Status DC Senna/Docusate Sodium (Emilie-Colace) 1 tab BID PO Last administered on at 08:50; Start 07/30/17 at 09:00 Sennosides (Senokot) 17.2 mg Q12H PRN PO Moderate constipation; Start 07/29/17 at 23:15 Sodium Chloride (NS Flush) 2 ml BID IV FLUSH Last administered on 08/11/17at 08: 50; Start 07/30/17 at 09:00 Vancomycin HCl 1000 mg/Sodium Chloride 250 ml @ 250 mls/hr ONCE ONCE IV Last administered on 07/30/17at 12:08; Start 07/30/17 at 12:00; Stop 07/30/17 at 12:59 ; Status DC Vancomycin HCl 1500 mg/Sodium Chloride 515 ml @ 257.5 mls/ hr ONCE ONCE IV Last administered on 07/31/17at 18:19; Start 07/31/17 at 18:00; Stop 07/31/17 at 19: 59; Status DC Vancomycin HCl 1750 mg/Sodium Chloride 517.5 ml @ 257.5 mls/ hr ONCE ONCE IV Last administered on 08/06/17at 14:05; Start 08/06/17 at 13:00; Stop 08/06/17 at 14: 40; Status DC Vancomycin HCl 2000 mg/Sodium Chloride 520 ml @ 250 mls/hr ONCE ONCE IV Last administered on 08/02/17at 14:50; Start 08/02/17 at 14:00; Stop 08/02/17 at 16:04; Status DC Vancomycin/Sodium Chloride 200 ml @ 200 mls/hr ONCE ONCE IV Last administered on 07/29/17at 23:55; Start 07/30/17 at 00:00; Stop 07/30/17 at 00:59 ; Status DC A/P Problem List: (1) Osteomyelitis ICD Code: M86.9 - Osteomyelitis, unspecified (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 - Aneurysm of unspecified site (3) Cocaine abuse ICD Code: F14.10 - Cocaine abuse, uncomplicated (4) Hyperkalemia ICD Code: E87.5 - Hyperkalemia (5) Hyponatremia ICD Code: E87.1 - Hypo-osmolality and hyponatremia (6) CKD (chronic kidney disease) stage 3, GFR 30-59 ml/min ICD Code: N18.3 - Chronic kidney disease, stage 3 (moderate) Assessment and Plan Osteomyelitis L5 vertebra Patient underwent a CT-guided removal of fluid for culture as well as disc biopsy on 07/31/2017 Blood culture grew out strep anginousis Fluid cultures grew out skin pooja MRI of the lumbar spine repeated on 08/08 with L4-5 discitis with bilateral psoas abscess. Some progression compared to prior scan. continue IV Rocephin. neurosurgery following and plan for surgery on Sunday. ID following. bacteremia with strep. continue antibiotics per ID. evaluated by GI for colonoscopy which the patient declined. Altered mental status- likely drug-induced.now improved. history of cocaine abuse with positive urine toxicology for cocaine during this hospitalization. s/p LP; with negative fluid culture so far. continue to monitor. psych consulted; patient is capable of making decisions. 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 Likely related to cocaine abuse Continue to follow trend anemia of chronic disease will monitor H/H. DVT prophylaxis SCDs palliative care following. Discharge Planning for surgery on Sunday. Mainor Grace MD August 11, 2017 09:40
[2017-08-11] MEDS: SODIUM CHLOR 0.9% 1000 ML INJ 1,000 ML IV SCH ×2 (10:34→21:18)
[2017-08-11 12:27] VITALS: BP 103/71; PULSE 101; RESP 18; TEMP 98.1; O2SAT 91
[2017-08-11] MEDS: cefTRIAXone INJ 2,000 MG in SODIUM CHLORIDE 0.9% INJ 100 ML IV SCH (17:29)
[2017-08-11 20:00] VITALS: BP 141/79; PULSE 95; RESP 18; TEMP 98.3; O2SAT 95
[2017-08-12] VITALS (7 sets, daily range): BP systolic 132–164; BP diastolic 82–101; PULSE 92–104; RESP 18; TEMP 97.9–99.3; O2SAT 93–96
[2017-08-12] MEDS: HYDROmorphone HCL PF 0.5 MG/0.5 ML SYRINGE IV PUSH PRN ×6 (01:22→21:31)
[2017-08-12] MEDS: oxyCODONE/ACETAMINOPHEN 5 MG/325 MG TAB PO PRN ×6 (03:51→23:45)
[2017-08-12] MEDS: cefTRIAXone INJ 2,000 MG in SODIUM CHLORIDE 0.9% INJ 100 ML IV SCH ×2 (05:29→16:10)
[2017-08-12 07:23] LABS: AUTOMATED NEUTROPHIL # 4.5 TH/MM3 (1.8-7.7); BASOPHIL # 0.1 TH/MM3 (0-0.2); EOSINOPHIL # 0.4 TH/MM3 (0-0.4); EOSINOPHIL % 5.8 % (0.0-4.0); HEMATOCRIT 25.9 % (39.0-51.0); HEMOGLOBIN 8.5 GM/DL (13.0-17.0); LYMPH % 12.2 % (9.0-44.0); LYMPHOCYTE # 0.8 TH/MM3 (1.0-4.8); MEAN CELL VOLUME 86.5 FL (80.0-100.0); MEAN CORPUSCULAR HEMOGLOBIN 28.4 PG (27.0-34.0); MEAN CORPUSCULAR HGB CONC 32.8 % (32.0-36.0); MEAN PLATELET VOLUME 7.4 FL (7.0-11.0); MONO % 12.2 % (0.0-8.0); MONOCYTE # 0.8 TH/MM3 (0-0.9); NEUT % 68.8 % (16.0-70.0); PLATELET COUNT 134 TH/MM3 (150-450); RED BLOOD COUNT 2.99 MIL/MM3 (4.50-5.90); RED CELL DISTRIBUTION WIDTH 15.6 % (11.6-17.2); WHITE BLOOD COUNT 6.5 TH/MM3 (4.0-11.0)
[2017-08-12] MEDS: FAMOTIDINE 20 MG TAB PO SCH ×2 (08:03→19:58)
[2017-08-12] MEDS: DOCUSATE SODIUM 50 MG/SENNA 8.6 MG TAB PO SCH ×2 (08:04→19:59)
[2017-08-12] MEDS: SODIUM CHLORIDE 0.9% FLUSH 10 ML FLUSH IV FLUSH SCH ×2 (08:05→21:00)
[2017-08-12] MEDS: SODIUM CHLOR 0.9% 1000 ML INJ 1,000 ML IV SCH ×2 (08:05→16:13)
[2017-08-12] MEDS: LACTIC ACID (AMMONIUM LACTATE) 12% LOTION 225 GM BTL TOPICAL SCH ×2 (08:06→20:01)
--- NOTE | 2017-08-12 09:01 | HHI.PR ---
Subjective Remarks in no acute distress. looks comfortable. no fever. Objective Vitals Vital Signs Date Time Temp Pulse Resp B/P (MAP) Pulse Ox O2 Delivery O2 Flow Rate FiO2 08/12/17 08:00 98.7 101 18 164/100 (121) 96 08/12/17 04:00 97.9 101 18 148/90 (109) 95 08/12/17 00:00 99.1 104 18 136/91 (106) 95 08/11/17 20:00 98.3 95 18 141/79 (99) 95 08/11/17 12:27 98.1 101 18 103/71 (82) 91 I/O 08/11/17 08/11/17 08/11/17 08/12/17 08/12/17 08/12/17 07:00 15:00 23:00 07:00 15:00 23:00 Intake Total 900 ml 1084 ml 788 ml Output Total 3000 ml 250 ml 550 ml 1200 ml Balance -2100 ml -250 ml 534 ml -412 ml Intake Oral 900 ml IV Total 1084 ml 788 ml Output Urine Total 3000 ml 250 ml 550 ml 1200 ml # Bowel Movements 3 Result Diagram: 08/12/17 0630 08/11/17 0613 Imaging Last Impressions Lumbar Spine MRI 08/08/17 0000 Signed Impressions: Service Date/Time: Tuesday, August 08, 2017 13:37 - CONCLUSION: Substantial progression as described above. Roly Reina MD FACR Lumbar Puncture Fluoroscopy 08/08/17 0000 Signed Impressions: Service Date/Time: Tuesday, August 08, 2017 15:42 - CONCLUSION: Uncomplicated fluoroscopically guided lumbar puncture. Fady Chan MD Chest X-Ray 08/07/17 0000 Signed Impressions: Service Date/Time: Monday, August 07, 2017 14:51 - CONCLUSION: 1. No acute findings. Elevated right hemidiaphragm. Tortuous aorta. Jack Travis MD Needle Biopsy/Aspiration X-Ray 07/31/17 0000 Signed Impressions: Service Date/Time: Monday, July 31, 2017 13:29 - CONCLUSION: Uncomplicated needle biopsy of the L4/L5 disc space as above. Candelario Reina MD Abdomen/Pelvis CT 07/29/17 0000 Signed Impressions: Service Date/Time: Saturday, July 29, 2017 22:14 - CONCLUSION: 1. Significant new prevertebral soft tissue fullness and stranding centered at the L5 level. There is associated sclerosis and erosive changes in the anterior L5 vertebral body which appear unchanged from recent exams. Overall, findings are concerning for discitis and osteomyelitis. Consider repeat MRI examination for further evaluation. 2. 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 However, evaluation is significantly limited due to lack of IV contrast on this exam. This was not present on remote prior CT exam. A mycotic aneurysm cannot be entirely excluded. Contrast enhanced examination would be greatly beneficial in further evaluation. 3. Nodular appearing liver contour consistent with cirrhosis. 4. IVC filter in place. 5. Cholelithiasis. Tanner Jones MD Objective Remarks GENERAL: This is a well-nourished, well-developed patient, in no apparent distress. CARDIOVASCULAR: Regular rate and regular rhythm without murmurs, gallops, or rubs. RESPIRATORY: Clear to auscultation. Breath sounds equal bilaterally. No wheezes , rales, or rhonchi. GASTROINTESTINAL: Abdomen soft, non-tender, nondistended. Normal, active bowel sounds MUSCULOSKELETAL: Extremities without clubbing, cyanosis, or edema. NEURO: lethargic but arousable. Medications and IVs Inpatient Medications Acetaminophen (Tylenol) 650 mg Q6H PRN PO FEVER/PAIN SCALE 1 TO 2 Last administered on 08/07/17 22:22; Start 07/29/17 at 23:15 Amlodipine Besylate (Norvasc) 10 mg DAILY PO Last administered on 08/12/17at 08: 03; Start 08/06/17 at 11:00 Bisacodyl (Dulcolax Supp) 10 mg DAILY PRN RECTAL SEVERE CONSITIPATION/ IF NPO ; Start 07/29/17 at 23:15 Calcium Carbonate (Tums Chew) 500 mg Q2H PRN CHEW indigestion Last administered on 08/05/17at 13:49; Start 08/02/17 at 19:30 Cefepime HCl 1000 mg/Sodium Chloride 100 ml @ 200 mls/hr Q12H IV Last administered on 08/01/17at 21:37; Start 07/30/17 at 09:00; Stop 08/02/17 at 06:53; Status DC Ceftriaxone Sodium 2000 mg/ Sodium Chloride 100 ml @ 200 mls/hr Q12H IV Last administered on 08/12/17 05:29; Start 08/03/17 at 17:00 Clonidine (Catapres) 0.1 mg ONCE ONCE PO Last administered on 08/06/17at 06:45; Start 08/06/17 at 06:45; Stop 08/06/17 at 06:46; Status DC Dexamethasone Sodium Phosphate (Decadron Inj) 8 mg ONCE ONCE IV PUSH Last administered on 07/29/17at 20:42; Start 07/29/17 at 20:15; Stop 07/29/17 at 20:16 ; Status DC Enalaprilat (Vasotec Inj) 2.5 mg Q6H PRN IV PUSH SBP > 165 Last administered on 08/07/17at 22:20; Start 08/06/17 at 11:00 Famotidine (Pepcid) 20 mg BID PO Last administered on 08/12/17 08:03; Start at 21:00 Hydralazine HCl (Apresoline Inj) 10 mg Q4H PRN IV PUSH SBP > 165; Start at 10:00; Stop 08/06/17 at 11:01; Status DC Hydromorphone HCl (Dilaudid Pf Inj) 0.5 mg Q4H PRN IV PUSH BREAKTHROUGH PAIN Last administered on 08/12/17at 05:30; Start 08/01/17 at 09:00 Lactic Acid (Lac-Hydrin 12% Lotion) 1 applic BID TOPICAL Last administered on 08:06; Start 08/04/17 at 21:00 Lactulose (Lactulose Liq) 30 ml DAILY PRN PO SEVERE CONSITIPATION/ IF PO Last administered on 08/06/17at 01:05; Start 07/29/17 at 23:15 Lorazepam (Ativan Inj) 1 mg Q2H PRN IV PUSH AGITATION/WITHDRAWAL Last administered on 08/09/17at 22:22; Start 07/29/17 at 23:15 Magnesium Hydroxide (Milk Of Magnesia Liq) 30 ml Q12H PRN PO Mild constipation ; Start 07/29/17 at 23:15 Morphine Sulfate (Morphine Inj) 2 mg Q3H PRN IV PUSH Pain 6-10 Last administered on 08/01/17at 01:54; Start 07/30/17 at 20:45; Stop 08/01/17 at 08:56; Status DC Ondansetron HCl (Zofran Inj) 4 mg Q6H PRN IVP NAUSEA OR VOMITING; Start at 23:15 Oxycodone HCl (Roxicodone) 5 mg ONCE ONCE PO Last administered on 07/31/17at 22: 40; Start 07/31/17 at 22:15; Stop 07/31/17 at 22:18; Status DC Oxycodone/ Acetaminophen (Percocet 5-325 Mg) 1 tab Q4HR PRN PO PAIN 4-10 Last administered on 08/12/17at 08:03; Start 08/09/17 at 10:00 Oxycodone/ Acetaminophen (Percocet 10-325 Mg) 1 tab Q4H PRN PO PAIN SCALE 4 TO 10 Last administered on 08/06/17at 05:36; Start 08/01/17 at 09:00; Stop 08/09/17 at 09:39; Status DC Pharmacy Profile Note 0 ml @ 0 mls/hr UNSCH OTHER ; Start 07/29/17 at 23:15; Stop 08/06/17 at 14:40; Status DC Senna/Docusate Sodium (Emilie-Colace) 1 tab BID PO Last administered on at 21:19; Start 07/30/17 at 09:00 Sennosides (Senokot) 17.2 mg Q12H PRN PO Moderate constipation; Start 07/29/17 at 23:15 Sodium Chloride (NS Flush) 2 ml BID IV FLUSH Last administered on 08/11/17at 21: 22; Start 07/30/17 at 09:00 Vancomycin HCl 1000 mg/Sodium Chloride 250 ml @ 250 mls/hr ONCE ONCE IV Last administered on 07/30/17at 12:08; Start 07/30/17 at 12:00; Stop 07/30/17 at 12:59 ; Status DC Vancomycin HCl 1500 mg/Sodium Chloride 515 ml @ 257.5 mls/ hr ONCE ONCE IV Last administered on 07/31/17at 18:19; Start 07/31/17 at 18:00; Stop 07/31/17 at 19: 59; Status DC Vancomycin HCl 1750 mg/Sodium Chloride 517.5 ml @ 257.5 mls/ hr ONCE ONCE IV Last administered on 08/06/17at 14:05; Start 08/06/17 at 13:00; Stop 08/06/17 at 14: 40; Status DC Vancomycin HCl 2000 mg/Sodium Chloride 520 ml @ 250 mls/hr ONCE ONCE IV Last administered on 08/02/17at 14:50; Start 08/02/17 at 14:00; Stop 08/02/17 at 16:04; Status DC Vancomycin/Sodium Chloride 200 ml @ 200 mls/hr ONCE ONCE IV Last administered on 07/29/17at 23:55; Start 07/30/17 at 00:00; Stop 07/30/17 at 00:59 ; Status DC A/P Problem List: (1) Osteomyelitis ICD Code: M86.9 - Osteomyelitis, unspecified (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 - Aneurysm of unspecified site (3) Cocaine abuse ICD Code: F14.10 - Cocaine abuse, uncomplicated (4) Hyperkalemia ICD Code: E87.5 - Hyperkalemia (5) Hyponatremia ICD Code: E87.1 - Hypo-osmolality and hyponatremia (6) CKD (chronic kidney disease) stage 3, GFR 30-59 ml/min ICD Code: N18.3 - Chronic kidney disease, stage 3 (moderate) Assessment and Plan Osteomyelitis L5 vertebra Patient underwent a CT-guided removal of fluid for culture as well as disc biopsy on 07/31/2017 Blood culture grew out strep anginousis Fluid cultures grew out skin pooja MRI of the lumbar spine repeated on 08/08 with L4-5 discitis with bilateral psoas abscess. Some progression compared to prior scan. continue IV Rocephin. neurosurgery following and plan for surgery on Sunday. ID following. bacteremia with strep. continue antibiotics per ID. evaluated by GI for colonoscopy which the patient declined. Altered mental status- likely drug-induced.now improved. history of cocaine abuse with positive urine toxicology for cocaine during this hospitalization. s/p LP; with negative fluid culture so far. continue to monitor. psych consulted; patient is capable of making decisions. 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 Likely related to cocaine abuse Continue to follow trend anemia of chronic disease will monitor H/H for now. DVT prophylaxis SCDs palliative care following. Discharge Planning for surgery on Sunday. Mainor Grace MD August 12, 2017 09:01
[2017-08-13] MEDS: HYDROmorphone HCL PF 0.5 MG/0.5 ML SYRINGE IV PUSH PRN ×5 (01:45→23:57)
[2017-08-13] MEDS ORDERED: ZOLPIDEM TARTRATE 5 MG TAB PO ONE (01:45)
[2017-08-13] MEDS: cefTRIAXone INJ 2,000 MG in SODIUM CHLORIDE 0.9% INJ 100 ML IV SCH ×2 (04:13→15:44)
[2017-08-13] MEDS: SODIUM CHLOR 0.9% 1000 ML INJ 1,000 ML IV SCH ×3 (04:13→23:57)
[2017-08-13] MEDS: oxyCODONE/ACETAMINOPHEN 5 MG/325 MG TAB PO PRN ×4 (04:14→21:14)
[2017-08-13 04:19] VITALS: BP 149/85; PULSE 104; RESP 18; TEMP 99.1; O2SAT 93
--- NOTE | 2017-08-13 06:56 | HHI.PR ---
Subjective Remarks in no acute distress. looks comfortable. no fever. d/w the RN. Objective Vitals Vital Signs Date Time Temp Pulse Resp B/P (MAP) Pulse Ox O2 Delivery O2 Flow Rate FiO2 08/13/17 04:19 99.1 104 18 149/85 (106) 93 08/12/17 23:48 99.3 104 18 144/82 (102) 94 08/12/17 20:00 98.3 99 18 141/85 (103) 95 08/12/17 16:12 98.8 98 18 140/101 (114) 93 08/12/17 12:00 98.7 92 18 132/99 (110) 93 08/12/17 08:00 98.7 101 18 164/100 (121) 96 I/O 08/12/17 08/12/17 08/12/17 08/13/17 08/13/17 08/13/17 07:00 15:00 23:00 07:00 15:00 23:00 Intake Total 788 ml 1343 ml 650 ml Output Total 1200 ml 675 ml 575 ml 1200 ml Balance -412 ml -675 ml 768 ml -550 ml IV Total 788 ml 1343 ml 650 ml Output Urine Total 1200 ml 675 ml 575 ml 1200 ml Result Diagram: 08/12/17 0630 08/11/17 0613 Imaging Last Impressions Lumbar Spine MRI 08/08/17 0000 Signed Impressions: Service Date/Time: Tuesday, August 08, 2017 13:37 - CONCLUSION: Substantial progression as described above. Roly Reina MD FACR Lumbar Puncture Fluoroscopy 08/08/17 0000 Signed Impressions: Service Date/Time: Tuesday, August 08, 2017 15:42 - CONCLUSION: Uncomplicated fluoroscopically guided lumbar puncture. Fady Chan MD Chest X-Ray 08/07/17 0000 Signed Impressions: Service Date/Time: Monday, August 07, 2017 14:51 - CONCLUSION: 1. No acute findings. Elevated right hemidiaphragm. Tortuous aorta. Jack Travis MD Needle Biopsy/Aspiration X-Ray 07/31/17 0000 Signed Impressions: Service Date/Time: Monday, July 31, 2017 13:29 - CONCLUSION: Uncomplicated needle biopsy of the L4/L5 disc space as above. Candelario Reina MD Abdomen/Pelvis CT 07/29/17 0000 Signed Impressions: Service Date/Time: Saturday, July 29, 2017 22:14 - CONCLUSION: 1. Significant new prevertebral soft tissue fullness and stranding centered at the L5 level. There is associated sclerosis and erosive changes in the anterior L5 vertebral body which appear unchanged from recent exams. Overall, findings are concerning for discitis and osteomyelitis. Consider repeat MRI examination for further evaluation. 2. 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 However, evaluation is significantly limited due to lack of IV contrast on this exam. This was not present on remote prior CT exam. A mycotic aneurysm cannot be entirely excluded. Contrast enhanced examination would be greatly beneficial in further evaluation. 3. Nodular appearing liver contour consistent with cirrhosis. 4. IVC filter in place. 5. Cholelithiasis. Tanner Jones MD Objective Remarks GENERAL: This is a well-nourished, well-developed patient, in no apparent distress. CARDIOVASCULAR: Regular rate and regular rhythm without murmurs, gallops, or rubs. RESPIRATORY: Clear to auscultation. Breath sounds equal bilaterally. No wheezes , rales, or rhonchi. GASTROINTESTINAL: Abdomen soft, non-tender, nondistended. Normal, active bowel sounds MUSCULOSKELETAL: Extremities without clubbing, cyanosis, or edema. NEURO: lethargic but arousable. Medications and IVs Inpatient Medications Acetaminophen (Tylenol) 650 mg Q6H PRN PO FEVER/PAIN SCALE 1 TO 2 Last administered on 08/07/17at 22:22; Start 07/29/17 at 23:15 Amlodipine Besylate (Norvasc) 10 mg DAILY PO Last administered on 08/12/17at 08: 03; Start 08/06/17 at 11:00 Bisacodyl (Dulcolax Supp) 10 mg DAILY PRN RECTAL SEVERE CONSITIPATION/ IF NPO ; Start 07/29/17 at 23:15 Calcium Carbonate (Tums Chew) 500 mg Q2H PRN CHEW indigestion Last administered on 08/05/17at 13:49; Start 08/02/17 at 19:30 Cefepime HCl 1000 mg/Sodium Chloride 100 ml @ 200 mls/hr Q12H IV Last administered on 08/01/17at 21:37; Start 07/30/17 at 09:00; Stop 08/02/17 at 06:53; Status DC Ceftriaxone Sodium 2000 mg/ Sodium Chloride 100 ml @ 200 mls/hr Q12H IV Last administered on 08/13/17at 04:13; Start 08/03/17 at 17:00 Clonidine (Catapres) 0.1 mg ONCE ONCE PO Last administered on 08/06/17at 06:45; Start 08/06/17 at 06:45; Stop 08/06/17 at 06:46; Status DC Dexamethasone Sodium Phosphate (Decadron Inj) 8 mg ONCE ONCE IV PUSH Last administered on 07/29/17at 20:42; Start 07/29/17 at 20:15; Stop 07/29/17 at 20:16 ; Status DC Enalaprilat (Vasotec Inj) 2.5 mg Q6H PRN IV PUSH SBP > 165 Last administered on 08/07/17at 22:20; Start 08/06/17 at 11:00 Famotidine (Pepcid) 20 mg BID PO Last administered on 08/12/17at 19:58; Start at 21:00 Hydralazine HCl (Apresoline Inj) 10 mg Q4H PRN IV PUSH SBP > 165; Start at 10:00; Stop 08/06/17 at 11:01; Status DC Hydromorphone HCl (Dilaudid Pf Inj) 0.5 mg Q4H PRN IV PUSH BREAKTHROUGH PAIN Last administered on 08/13/17at 01:45; Start 08/01/17 at 09:00 Lactic Acid (Lac-Hydrin 12% Lotion) 1 applic BID TOPICAL Last administered on at 20:01; Start 08/04/17 at 21:00 Lactulose (Lactulose Liq) 30 ml DAILY PRN PO SEVERE CONSITIPATION/ IF PO Last administered on 08/06/17at 01:05; Start 07/29/17 at 23:15 Lorazepam (Ativan Inj) 1 mg Q2H PRN IV PUSH AGITATION/WITHDRAWAL Last administered on 08/09/17at 22:22; Start 07/29/17 at 23:15 Magnesium Hydroxide (Milk Of Magnesia Liq) 30 ml Q12H PRN PO Mild constipation ; Start 07/29/17 at 23:15 Morphine Sulfate (Morphine Inj) 2 mg Q3H PRN IV PUSH Pain 6-10 Last administered on 08/01/17at 01:54; Start 07/30/17 at 20:45; Stop 08/01/17 at 08:56; Status DC Ondansetron HCl (Zofran Inj) 4 mg Q6H PRN IVP NAUSEA OR VOMITING; Start at 23:15 Oxycodone HCl (Roxicodone) 5 mg ONCE ONCE PO Last administered on 07/31/17at 22: 40; Start 07/31/17 at 22:15; Stop 07/31/17 at 22:18; Status DC Oxycodone/ Acetaminophen (Percocet 5-325 Mg) 1 tab Q4HR PRN PO PAIN 4-10 Last administered on 08/13/17at 04:14; Start 08/09/17 at 10:00 Oxycodone/ Acetaminophen (Percocet 10-325 Mg) 1 tab Q4H PRN PO PAIN SCALE 4 TO 10 Last administered on 08/06/17at 05:36; Start 08/01/17 at 09:00; Stop 08/09/17 at 09:39; Status DC Pharmacy Profile Note 0 ml @ 0 mls/hr UNSCH OTHER ; Start 07/29/17 at 23:15; Stop 08/06/17 at 14:40; Status DC Senna/Docusate Sodium (Emilie-Colace) 1 tab BID PO Last administered on at 19:59; Start 07/30/17 at 09:00 Sennosides (Senokot) 17.2 mg Q12H PRN PO Moderate constipation; Start 07/29/17 at 23:15 Sodium Chloride (NS Flush) 2 ml BID IV FLUSH Last administered on 08/11/17at 21: 22; Start 07/30/17 at 09:00 Vancomycin HCl 1000 mg/Sodium Chloride 250 ml @ 250 mls/hr ONCE ONCE IV Last administered on 07/30/17at 12:08; Start 07/30/17 at 12:00; Stop 07/30/17 at 12:59 ; Status DC Vancomycin HCl 1500 mg/Sodium Chloride 515 ml @ 257.5 mls/ hr ONCE ONCE IV Last administered on 07/31/17at 18:19; Start 07/31/17 at 18:00; Stop 07/31/17 at 19: 59; Status DC Vancomycin HCl 1750 mg/Sodium Chloride 517.5 ml @ 257.5 mls/ hr ONCE ONCE IV Last administered on 08/06/17at 14:05; Start 08/06/17 at 13:00; Stop 08/06/17 at 14: 40; Status DC Vancomycin HCl 2000 mg/Sodium Chloride 520 ml @ 250 mls/hr ONCE ONCE IV Last administered on 08/02/17at 14:50; Start 08/02/17 at 14:00; Stop 08/02/17 at 16:04; Status DC Vancomycin/Sodium Chloride 200 ml @ 200 mls/hr ONCE ONCE IV Last administered on 07/29/17at 23:55; Start 07/30/17 at 00:00; Stop 07/30/17 at 00:59 ; Status DC Zolpidem Tartrate (Ambien) 5 mg ONCE ONCE PO Last administered on 08/13/17at 01 :45; Start 08/13/17 at 01:45; Stop 08/13/17 at 01:46; Status DC A/P Problem List: (1) Osteomyelitis ICD Code: M86.9 - Osteomyelitis, unspecified (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 - Aneurysm of unspecified site (3) Cocaine abuse ICD Code: F14.10 - Cocaine abuse, uncomplicated (4) Hyperkalemia ICD Code: E87.5 - Hyperkalemia (5) Hyponatremia ICD Code: E87.1 - Hypo-osmolality and hyponatremia (6) CKD (chronic kidney disease) stage 3, GFR 30-59 ml/min ICD Code: N18.3 - Chronic kidney disease, stage 3 (moderate) Assessment and Plan Osteomyelitis L5 vertebra Patient underwent a CT-guided removal of fluid for culture as well as disc biopsy on 07/31/2017 Blood culture grew out strep anginousis Fluid cultures grew out skin pooja MRI of the lumbar spine repeated on 08/08 with L4-5 discitis with bilateral psoas abscess. Some progression compared to prior scan. continue IV Rocephin. neurosurgery following and plan for surgery - possibly today. ID following. bacteremia with strep. continue antibiotics per ID. evaluated by GI for colonoscopy which the patient declined. Altered mental status- likely drug-induced.now has resolved. history of cocaine abuse with positive urine toxicology for cocaine during this hospitalization. s/p LP; with negative fluid culture so far. continue to monitor. psych consulted; patient is capable of making decisions. 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 Likely related to cocaine abuse Continue to follow trend anemia of chronic disease will monitor H/H for now. DVT prophylaxis SCDs palliative care following. Discharge Planning plan for surgical intervention-per neurosurgery. Mainor Grace MD August 13, 2017 06:56
[2017-08-13 08:00] VITALS: BP 134/77; PULSE 106; RESP 16; TEMP 98.8; O2SAT 93
[2017-08-13] MEDS: DOCUSATE SODIUM 50 MG/SENNA 8.6 MG TAB PO SCH ×2 (08:00→21:14)
[2017-08-13] MEDS: FAMOTIDINE 20 MG TAB PO SCH ×2 (08:00→21:13)
[2017-08-13] MEDS: LACTIC ACID (AMMONIUM LACTATE) 12% LOTION 225 GM BTL TOPICAL SCH ×2 (08:07→21:15)
[2017-08-13] MEDS: SODIUM CHLORIDE 0.9% FLUSH 10 ML FLUSH IV FLUSH SCH ×2 (08:07→21:00)
--- NOTE | 2017-08-13 09:55 | HHI.NSPN ---
(Apolinar Argueta) History Chief Complaint: Low back pain going into legs (Apolinar Argueta) Interval History 07/30: 57-year-old gentleman with a history of lumbar osteomyelitis and discitis with abscess who underwent L4-[address] Felipe from neurosurgery. He has a chronic history of low back pain and more recent MRI scan shows degenerative L4-5 stenosis with facet hypertrophy and grade 1 spondylolisthesis along with some possible L5 anterior vertebral body osteomyelitis with the prevertebral retroperitoneal abscess. Patient was scheduled to follow-up with Dr. Felipe but returned to the emergency room for persistent back pain. Currently he is very sedated but does awaken and relates that his pain is controlled. He has been ambulating with a cane on a chronic basis. No bowel bladder incontinence or any lower extremity weakness noted. Dr. Gamez from neurosurgery coverage over the weekend was consulted and deferred further management to Dr. Felipe who is currently out of town. 08/06: When seen this morning the patient is asleep in bed. He does awaken to voice but is drowsy after that. He complains of pain to the lower back that does radiate down both lower extremities to the knees. He denies any numbness or tingling to the lower extremities. He does have low lumbar tenderness to palpation. He did not have any apparent lower extremity sensory deficits. His motor strength exam was incomplete due to patient not fully participating due to pain and drowsiness. 08/08/2017: Relatively awake and alert. Status post lumbar puncture 08/10: This afternoon the patient is asleep but awakens to voice. After that he is alert and readily interacts. He does say he has some pain to the low back and into the legs but he denies any numbness or tingling. No sensorimotor deficits are noted upon examination. 08/13: The patient is awake when seen this morning. He continues to have low back pain that goes into the legs but he denies any numbness or tingling. He has no evident sensorimotor deficits upon evaluation. (Apolinar Argueta) Exam Results 08/11/17 08/11/17 08/12/17 08/12/17 08/13/17 08/13/17 05:59 17:59 05:59 17:59 05:59 17:59 Intake Total 1700 ml 682 ml 1190 ml 1000 ml 993 ml Output Total 2400 ml 1550 ml 1450 ml 1250 ml 1200 ml Balance -700 ml -868 ml -260 ml -250 ml -207 ml Intake Oral 1700 ml IV Total 682 ml 1190 ml 1000 ml 993 ml Output Urine Total 2400 ml 1550 ml 1450 ml 1250 ml 1200 ml # Bowel Movements 2 1 Vital Signs Date Time Temp Pulse Resp B/P (MAP) Pulse Ox O2 Delivery O2 Flow Rate FiO2 08/13/17 08:00 98.8 106 16 134/77 (96) 93 08/13/17 04:19 99.1 104 18 149/85 (106) 93 08/12/17 23:48 99.3 104 18 144/82 (102) 94 08/12/17 20:00 98.3 99 18 141/85 (103) 95 08/12/17 16:12 98.8 98 18 140/101 (114) 93 08/12/17 12:00 98.7 92 18 132/99 (110) 93 08/12/17 08:00 98.7 101 18 164/100 (121) 96 08/12/17 04:00 97.9 101 18 148/90 (109) 95 08/12/17 00:00 99.1 104 18 136/91 (106) 95 08/11/17 20:00 98.3 95 18 141/79 (99) 95 08/11/17 12:27 98.1 101 18 103/71 (82) 91 08/11/17 04:20 98.0 101 20 129/68 (88) 96 08/11/17 00:50 98.8 106 20 140/67 (91) 97 08/10/17 20:30 97.9 104 19 138/88 (105) 96 08/10/17 16:00 98.6 101 18 123/79 (94) 95 08/10/17 12:00 98.8 100 18 92 (Apolinar Argueta) Physical Examination GENERAL: Awake & alert. Affect flat but readily interacts. No apparent distress. SKIN: No rashes, ecchymoses or lesions. Cool and dry. HEENT: Normocephalic, atraumatic. MUSCULOSKELETAL: HUANG spontaneously & purposefully. Right thigh minimally TTP. No evident clubbing or deformity. Thoracic spine NTTP. Inferior lumbar spine minimally TTP. NEUROLOGICAL: AAOx3. Speech clear & appropriate. Follows commands w/o difficulty. Sensation intact to light touch to the lower extremities. Muscle strength is 5/5 to the lower extremities (Apolinar Argueta) Lab, Micro, Other Results Laboratory Tests Test 08/11/17 06:13 08/12/17 06:30 White Blood Count 6.5 TH/MM3 6.5 TH/MM3 Red Blood Count 3.13 MIL/MM3 2.99 MIL/MM3 Hemoglobin 8.9 GM/DL 8.5 GM/DL Hematocrit 27.2 % 25.9 % Mean Corpuscular Volume 86.9 FL 86.5 FL Mean Corpuscular Hemoglobin 28.4 PG 28.4 PG Mean Corpuscular Hemoglobin Concent 32.7 % 32.8 % Red Cell Distribution Width 15.6 % 15.6 % Platelet Count 135 TH/MM3 134 TH/MM3 Mean Platelet Volume 7.7 FL 7.4 FL Neutrophils (%) (Auto) 71.6 % 68.8 % Lymphocytes (%) (Auto) 11.4 % 12.2 % Monocytes (%) (Auto) 10.9 % 12.2 % Eosinophils (%) (Auto) 4.8 % 5.8 % Basophils (%) (Auto) 1.3 % 1.0 % Neutrophils # (Auto) 4.7 TH/MM3 4.5 TH/MM3 Lymphocytes # (Auto) 0.7 TH/MM3 0.8 TH/MM3 Monocytes # (Auto) 0.7 TH/MM3 0.8 TH/MM3 Eosinophils # (Auto) 0.3 TH/MM3 0.4 TH/MM3 Basophils # (Auto) 0.1 TH/MM3 0.1 TH/MM3 CBC Comment DIFF FINAL DIFF FINAL Differential Comment Blood Urea Nitrogen 20 MG/DL Creatinine 1.74 MG/DL Random Glucose 73 MG/DL Total Protein 8.4 GM/DL Albumin 1.9 GM/DL Calcium Level 8.1 MG/DL Alkaline Phosphatase 170 U/L Aspartate Amino Transf (AST/SGOT) 38 U/L Alanine Aminotransferase (ALT/SGPT) 19 U/L Total Bilirubin 0.5 MG/DL Sodium Level 138 MEQ/L Potassium Level 4.5 MEQ/L Chloride Level 103 MEQ/L Carbon Dioxide Level 27.2 MEQ/L Anion Gap 8 MEQ/L Estimat Glomerular Filtration Rate 50 ML/MIN (Apolinar Argueta) Medical Decision Making Impression and Plan Impression: 1, 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 History of chronic low back pain. 3. L4-5 moderate spinal stenosis w/grade 1 spondylolisthesis 4. Prevertebral/retroperitoneal abscess 5. Possible L5 anterior osteomyelitis w/elevated sed rate and white count The patient doing well. He continues to have low back tenderness w/pain into the right thigh. No sensorimotor deficits were noted. . Afebrile the past 24 hrs. Tachycardia. Elevated SBP yesterday morning. CSF lumbar puncture () w/no growth x72 hrs on final . MRI lumbar spine demonstrated increasing soft tissue signal to the back muscle from L1-L5. Increased marrow edema at L5 and to a lesser degree at L4. Increased disc space signal. Large bilateral psoas abscesses extending from L2 on the left into the iliopsoas and L3 on the right to the pelvis. Represents substantial progression. No significant epidural component. Plan: Discussed the plan of care with the patient who verbalised his understanding and his questions were answered. Primary management per Hospitalist. Antibiotics per Infectious Disease. Patient being scheduled for the OR tomorrow afternoon, Sunday, due to continued progression of the bilateral psoas abscesses. Will resume diet at this time and make NPO after midnight. (Apolinar Argueta) Attending Statement The exam, history, and the medical decision-making described in the above note were completed with the assistance of the mid-level provider. I reviewed and agree with the findings presented. I attest that I had a [id number] encounter with the patient on the same day, and personally performed and documented my assessment and findings in the medical record. On 08/13/2017, I had a long discussion with the patient and his family in his room regarding his findings and treatment options and prognosis. I have advised them that surgical intervention for evacuation of the retroperitoneal-paraspinous abscess may help some of his pain symptoms, and improve at least for short-term prognosis. However given the chronic nature of the infection and the widespread disease, it is likely that he will continue to have recurrence of infection in the future, which could be potentially life- threatening. I have also advised him that surgical intervention at this time would be primarily to decrease the infectious load, with the need for further spinal stabilization in the future after an additional course of IV antibiotics. The risk of neurologic injury and vascular injury both with the surgery as well as ongoing in the future has been discussed. The appear to understand all of the above and wishes to proceed with surgical intervention. This has been discussed with general surgery with surgery tentatively scheduled for 08/14/2017. (Guero Felipe MD) Apolinar Argeuta August 13, 2017 09:54 Guero Felipe MD August 14, 2017 08:41
[2017-08-13 12:00] VITALS: BP 123/87; PULSE 105; RESP 16; TEMP 98.8; O2SAT 93
--- NOTE | 2017-08-13 13:47 | PD.CAR.PN ---
CVT Progress Note Subjective/Hospital Course: Referral received Studies reviewed Full consult to follow Oanh J 08/10/2017 Patient with retroperitoneal infection involving the vertebra and paraspinal muscles and psoas muscles extending toward the pelvis, with multiple abscesses throughout I have discussed the care with Dr. Felipe, Dr. Toney and the patient At this point the most preferred way to access this would be through a left preperitoneal approach in the same fashion we access abdominal aorta for preperitoneal lateral aneurysmorrhaphy. This incision would give quite plenty of space and access to drain all this. While technically this is a quite advantageous approach, I have to stress that ability to completely eliminate the infection and cure the patient permanently is very limited. The procedure is mainly meant to contain the infection clean everything up and minimize the sequela of the same If patient agrees with surgery has to be cleared that this is not most likely going to cure him but will definitely slow the infection down set it back and make it controllable. In addition the surgery itself carries obviously inherent risks of prolonged morbidity and mortality ranging in about 5-10% range The other option is not to do anything and make patient comfortable with palliative care but this will definitely leave the patient's demise I will be happy to discuss this with other family members this patient may desire and I will definitely be available for the surgery any time 08/13/2017 Patient with extensive retroperitoneal infections due to osteomyelitis now spread to the soft tissues including both psoas muscles I have discussed this with patient at length and tried to explain that the surgery will likely not be curative but will only temporize the infection and completely clearing it is almost impossible I also explained to the patient that this approach and surgery of course carries significant risk of morbidity and mortality in the further details of the surgery have to be discussed with neurosurgery I discussed this today with Dr. Felipe and patient would like to proceed with surgery so I will provide preperitoneal/retroperitoneal approach for further neurosurgical intervention Objective: Vital Signs Date Time Temp Pulse Resp B/P (MAP) Pulse Ox O2 Delivery O2 Flow Rate FiO2 08/13/17 12:00 98.8 105 16 123/87 (99) 93 08/13/17 10:43 18 08/13/17 08:31 18 08/13/17 08:00 98.8 106 16 134/77 (96) 93 08/13/17 04:19 99.1 104 18 149/85 (106) 93 08/12/17 23:48 99.3 104 18 144/82 (102) 94 08/12/17 20:00 98.3 99 18 141/85 (103) 95 08/12/17 16:12 98.8 98 18 140/101 (114) 93 Result Diagram: 08/12/17 0630 08/11/17 0613 Felicia Sanchez MD August 13, 2017 13:47
--- NOTE | 2017-08-13 14:52 | HHI.IDPN ---
Subjective Subjective Remarks Mr. Gee is a 57-year-old -[place] male with past medical history significant for rheumatoid arthritis on prednisone. From infectious disease standpoint his past medical history significant for prior history of strep epidural abscess as well as bacteremia treated with IV antibiotics and also needing L4 partial laminectomy in 2013 as well as an abscess on the skin of his back.. His past medical history is also significant for chronic kidney disease stage III, chronic back pain, cocaine abuse and tobacco abuse who presented to the emergency department with complaints of severe back pain. Patient is an extremely poor historian and reports that he has had a prior visit to the emergency room on July 23, 2017 with similar symptoms. An MRI of the L-spine did not show any evidence of infection patient was asked to follow-up with Dr. Pineda whom he has seen in the past. On arrival, BP 125/71, HR 86, O2 sat 100% RA, Afebrile. WBC 20.8. Na 128. K+ 5.5. Creatinine 2.84, previously 2.97 on 07/23/2017. INR 1.1. UA negative for UTI. 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 S/p Vanc/ Rocephin in ER. At the time of my evaluation patient is on a regular floor. Appears to be comfortable not in significant pain involving his extremities. Patient reports tingling numbness and extreme pain in his bilateral lower extremities right more than left. Patient denies any bowel bladder incontinence. Denies any decrease in perineal sensation. Infectious diseases consulted for evaluation and management of discitis and epidural abscess. Notes reviewed Afebrile No new complaints still has back pain. More alert than last s/b me NPO for surgery by Vascular and Neurosurgery per dw RN MRI repeat showing progression of infection, and dev of lenin psoas abscess LP results noted, WBC only 5, but with low glucose and elevated protein Psych evaluation noted Antibiotics Ceftriaxone IV Lines Line sites with no e.o infection. Past Medical History reviewed. Allergies: Coded Allergies: *MDRO Multi-Drug Resistant Organism (Verified Adverse Reaction, Unknown, ) MRSA (leg wound) - 10/2006 MRSA PCR screen positive - 10/2014 Objective . Vital Signs Date Time Temp Pulse Resp B/P (MAP) Pulse Ox O2 Delivery O2 Flow Rate FiO2 08/13/17 14:39 16 08/13/17 12:00 98.8 105 16 123/87 (99) 93 08/13/17 10:43 18 08/13/17 08:00 98.8 106 16 134/77 (96) 93 08/13/17 04:19 99.1 104 18 149/85 (106) 93 08/12/17 23:48 99.3 104 18 144/82 (102) 94 08/12/17 20:00 98.3 99 18 141/85 (103) 95 08/12/17 16:12 98.8 98 18 140/101 (114) 93 . Laboratory Tests Test 08/12/17 06:30 White Blood Count 6.5 TH/MM3 Red Blood Count 2.99 MIL/MM3 Hemoglobin 8.5 GM/DL Hematocrit 25.9 % Mean Corpuscular Volume 86.5 FL Mean Corpuscular Hemoglobin 28.4 PG Mean Corpuscular Hemoglobin Concent 32.8 % Red Cell Distribution Width 15.6 % Platelet Count 134 TH/MM3 Mean Platelet Volume 7.4 FL Neutrophils (%) (Auto) 68.8 % Lymphocytes (%) (Auto) 12.2 % Monocytes (%) (Auto) 12.2 % Eosinophils (%) (Auto) 5.8 % Basophils (%) (Auto) 1.0 % Neutrophils # (Auto) 4.5 TH/MM3 Lymphocytes # (Auto) 0.8 TH/MM3 Monocytes # (Auto) 0.8 TH/MM3 Eosinophils # (Auto) 0.4 TH/MM3 Basophils # (Auto) 0.1 TH/MM3 CBC Comment DIFF FINAL Differential Comment Imaging Last Impressions Needle Biopsy/Aspiration X-Ray 07/31/17 0000 Signed Impressions: Service Date/Time: Monday, July 31, 2017 13:29 - CONCLUSION: Uncomplicated needle biopsy of the L4/L5 disc space as above. Candelario Reina MD Lumbar Spine MRI 07/30/17 0000 Signed Impressions: Service Date/Time: Sunday, July 30, 2017 00:12 - CONCLUSION: 1. An apparent inflammatory phlegmon/abscess anterior to the L5 vertebral body with cortical irregularity along the anterior margin of L5 concerning for regional osteomyelitis. This appears to be confined to the prevertebral space. Area is incompletely evaluated without IV contrast. 2. Grade 1 anterolisthesis of L4 on 5 with bilateral facet hypertrophy at the same level results in moderately severe central spinal stenosis which is probably advanced enough to compromise central nerve roots. 3. 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 I believe the spinal canal is adequate at all levels except L4-5, however. 4. 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 No acute cardiopulmonary disease. Tanner Jones MD Abdomen/Pelvis CT 07/29/17 0000 Signed Impressions: Service Date/Time: Saturday, July 29, 2017 22:14 - CONCLUSION: 1. Significant new prevertebral soft tissue fullness and stranding centered at the L5 level. There is associated sclerosis and erosive changes in the anterior L5 vertebral body which appear unchanged from recent exams. Overall, findings are concerning for discitis and osteomyelitis. Consider repeat MRI examination for further evaluation. 2. 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 However, evaluation is significantly limited due to lack of IV contrast on this exam. This was not present on remote prior CT exam. A mycotic aneurysm cannot be entirely excluded. Contrast enhanced examination would be greatly beneficial in further evaluation. 3. Nodular appearing liver contour consistent with cirrhosis. 4. IVC filter in place. 5. Cholelithiasis. Tanner Jones MD Physical Exam GENERAL: resting, awakens easily when stimulated, NAD SKIN: No obvious rash. HEAD: Atraumatic. Normocephalic. No temporal or scalp tenderness. EYES: No scleral icterus. No injection or drainage. ENT: No gross bleeding. Moist mucosa NECK: Patient was moving his neck is in all 4 directions. No rigidity CARDIOVASCULAR: regular RESPIRATORY: Clear posteriorly GASTROINTESTINAL: Not tender, (+) BS MUSCULOSKELETAL: No pedal edema NEUROLOGICAL: Awakens easily, moves all extremities Psych cooperative. IV line sites with no e.o infection Assessment & Plan Remarks Strep bacteremia, probable endocarditis Probable meningitis based on gluc and total protein (partially treated by the time LP done) Epidural abscess Discitis. 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 Immune compromised host. 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 Plan for surgery: vascular and Neurosurgery Follow C/S Follow clinically. Latricia Goldstein MD August 13, 2017 14:51
[2017-08-13 16:00] VITALS: BP 134/80; PULSE 103; RESP 16; TEMP 98.8; O2SAT 93
[2017-08-13 20:00] VITALS: BP 122/69; PULSE 102; RESP 18; TEMP 99; O2SAT 91
[2017-08-14] VITALS: BP 143/83; PULSE 98; RESP 22; TEMP 99.2; O2SAT 92
[2017-08-14] MEDS: oxyCODONE/ACETAMINOPHEN 5 MG/325 MG TAB PO PRN ×3 (03:41→12:05)
[2017-08-14] MEDS: cefTRIAXone INJ 2,000 MG in SODIUM CHLORIDE 0.9% INJ 100 ML IV SCH ×2 (04:50→17:00)
[2017-08-14] MEDS: HYDROmorphone HCL PF 0.5 MG/0.5 ML SYRINGE IV PUSH PRN ×3 (04:50→13:21)
[2017-08-14 06:32] VITALS: BP 131/74; PULSE 107; RESP 18; TEMP 99.2; O2SAT 93
[2017-08-14 07:07] LABS: AUTOMATED NEUTROPHIL # 3.8 TH/MM3 (1.8-7.7); BASOPHIL # 0.1 TH/MM3 (0-0.2); BASOPHIL % 1.1 % (0.0-2.0); EOSINOPHIL # 0.3 TH/MM3 (0-0.4); EOSINOPHIL % 5.9 % (0.0-4.0); HEMATOCRIT 27.6 % (39.0-51.0); LYMPH % 14.6 % (9.0-44.0); LYMPHOCYTE # 0.8 TH/MM3 (1.0-4.8); MEAN CELL VOLUME 86.3 FL (80.0-100.0); MEAN CORPUSCULAR HEMOGLOBIN 28.3 PG (27.0-34.0); MEAN CORPUSCULAR HGB CONC 32.8 % (32.0-36.0); MEAN PLATELET VOLUME 7.5 FL (7.0-11.0); MONO % 12.5 % (0.0-8.0); MONOCYTE # 0.7 TH/MM3 (0-0.9); NEUT % 65.9 % (16.0-70.0); PLATELET COUNT 179 TH/MM3 (150-450); RED BLOOD COUNT 3.19 MIL/MM3 (4.50-5.90); RED CELL DISTRIBUTION WIDTH 15.4 % (11.6-17.2); WHITE BLOOD COUNT 5.8 TH/MM3 (4.0-11.0)
--- NOTE | 2017-08-14 07:41 | HHI.PR ---
Subjective Remarks in no acute distress. has some back pain. no fever. awaiting surgery. Objective Vitals Vital Signs Date Time Temp Pulse Resp B/P (MAP) Pulse Ox O2 Delivery O2 Flow Rate FiO2 08/14/17 06:32 99.2 107 18 131/74 (93) 93 08/14/17 00:00 99.2 98 22 143/83 (103) 92 08/13/17 20:00 99.0 102 18 122/69 (86) 91 08/13/17 17:59 16 08/13/17 16:50 18 08/13/17 16:00 98.8 103 16 134/80 (98) 93 08/13/17 12:00 98.8 105 16 123/87 (99) 93 08/13/17 08:00 98.8 106 16 134/77 (96) 93 I/O 08/13/17 08/13/17 08/13/17 08/14/17 08/14/17 08/14/17 07:00 15:00 23:00 07:00 15:00 23:00 Intake Total 650 ml Output Total 1200 ml 700 ml Balance -550 ml -700 ml IV Total 650 ml Output Urine Total 1200 ml 700 ml # Bowel Movements 0 Result Diagram: 08/14/17 0641 08/11/17 0613 Imaging Last Impressions Lumbar Spine MRI 08/08/17 0000 Signed Impressions: Service Date/Time: Tuesday, August 08, 2017 13:37 - CONCLUSION: Substantial progression as described above. Roly Reina MD FACR Lumbar Puncture Fluoroscopy 08/08/17 0000 Signed Impressions: Service Date/Time: Tuesday, August 08, 2017 15:42 - CONCLUSION: Uncomplicated fluoroscopically guided lumbar puncture. Fady Chan MD Chest X-Ray 08/07/17 0000 Signed Impressions: Service Date/Time: Monday, August 07, 2017 14:51 - CONCLUSION: 1. No acute findings. Elevated right hemidiaphragm. Tortuous aorta. Jack Travis MD Needle Biopsy/Aspiration X-Ray 07/31/17 0000 Signed Impressions: Service Date/Time: Monday, July 31, 2017 13:29 - CONCLUSION: Uncomplicated needle biopsy of the L4/L5 disc space as above. Candelario Reina MD Abdomen/Pelvis CT 07/29/17 0000 Signed Impressions: Service Date/Time: Saturday, July 29, 2017 22:14 - CONCLUSION: 1. Significant new prevertebral soft tissue fullness and stranding centered at the L5 level. There is associated sclerosis and erosive changes in the anterior L5 vertebral body which appear unchanged from recent exams. Overall, findings are concerning for discitis and osteomyelitis. Consider repeat MRI examination for further evaluation. 2. 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 However, evaluation is significantly limited due to lack of IV contrast on this exam. This was not present on remote prior CT exam. A mycotic aneurysm cannot be entirely excluded. Contrast enhanced examination would be greatly beneficial in further evaluation. 3. Nodular appearing liver contour consistent with cirrhosis. 4. IVC filter in place. 5. Cholelithiasis. Tanner Jones MD Objective Remarks GENERAL: This is a well-nourished, well-developed patient, in no apparent distress. CARDIOVASCULAR: Regular rate and regular rhythm without murmurs, gallops, or rubs. RESPIRATORY: Clear to auscultation. Breath sounds equal bilaterally. No wheezes , rales, or rhonchi. GASTROINTESTINAL: Abdomen soft, non-tender, nondistended. Normal, active bowel sounds MUSCULOSKELETAL: Extremities without clubbing, cyanosis, or edema. NEURO: lethargic but arousable. Medications and IVs Inpatient Medications Acetaminophen (Tylenol) 650 mg Q6H PRN PO FEVER/PAIN SCALE 1 TO 2 Last administered on 08/07/17at 22:22; Start 07/29/17 at 23:15 Amlodipine Besylate (Norvasc) 10 mg DAILY PO Last administered on 08/13/17at 07: 59; Start 08/06/17 at 11:00 Bisacodyl (Dulcolax Supp) 10 mg DAILY PRN RECTAL SEVERE CONSITIPATION/ IF NPO ; Start 07/29/17 at 23:15 Calcium Carbonate (Tums Chew) 500 mg Q2H PRN CHEW indigestion Last administered on 08/05/17at 13:49; Start 08/02/17 at 19:30 Cefepime HCl 1000 mg/Sodium Chloride 100 ml @ 200 mls/hr Q12H IV Last administered on 08/01/17at 21:37; Start 07/30/17 at 09:00; Stop 08/02/17 at 06:53; Status DC Ceftriaxone Sodium 2000 mg/ Sodium Chloride 100 ml @ 200 mls/hr Q12H IV Last administered on 08/14/17 04:50; Start 08/03/17 at 17:00 Clonidine (Catapres) 0.1 mg ONCE ONCE PO Last administered on 08/06/17 06:45; Start 08/06/17 at 06:45; Stop 08/06/17 at 06:46; Status DC Dexamethasone Sodium Phosphate (Decadron Inj) 8 mg ONCE ONCE IV PUSH Last administered on 07/29/17 20:42; Start 07/29/17 at 20:15; Stop 07/29/17 at 20:16 ; Status DC Enalaprilat (Vasotec Inj) 2.5 mg Q6H PRN IV PUSH SBP > 165 Last administered on 08/07/17 22:20; Start 08/06/17 at 11:00 Famotidine (Pepcid) 20 mg BID PO Last administered on 08/13/17 21:13; Start at 21:00 Hydralazine HCl (Apresoline Inj) 10 mg Q4H PRN IV PUSH SBP > 165; Start at 10:00; Stop 08/06/17 at 11:01; Status DC Hydromorphone HCl (Dilaudid Pf Inj) 0.5 mg Q4H PRN IV PUSH BREAKTHROUGH PAIN Last administered on 08/14/17 04:50; Start 08/01/17 at 09:00 Lactic Acid (Lac-Hydrin 12% Lotion) 1 applic BID TOPICAL Last administered on 21:15; Start 08/04/17 at 21:00 Lactulose (Lactulose Liq) 30 ml DAILY PRN PO SEVERE CONSITIPATION/ IF PO Last administered on 08/06/17 01:05; Start 07/29/17 at 23:15 Lorazepam (Ativan Inj) 1 mg Q2H PRN IV PUSH AGITATION/WITHDRAWAL Last administered on 08/09/17 22:22; Start 07/29/17 at 23:15 Magnesium Hydroxide (Milk Of Magnesia Liq) 30 ml Q12H PRN PO Mild constipation ; Start 07/29/17 at 23:15 Morphine Sulfate (Morphine Inj) 2 mg Q3H PRN IV PUSH Pain 6-10 Last administered on 08/01/17at 01:54; Start 07/30/17 at 20:45; Stop 08/01/17 at 08:56; Status DC Ondansetron HCl (Zofran Inj) 4 mg Q6H PRN IVP NAUSEA OR VOMITING; Start at 23:15 Oxycodone HCl (Roxicodone) 5 mg ONCE ONCE PO Last administered on 07/31/17at 22: 40; Start 07/31/17 at 22:15; Stop 07/31/17 at 22:18; Status DC Oxycodone/ Acetaminophen (Percocet 5-325 Mg) 1 tab Q4HR PRN PO PAIN 4-10 Last administered on 08/14/17at 03:41; Start 08/09/17 at 10:00 Oxycodone/ Acetaminophen (Percocet 10-325 Mg) 1 tab Q4H PRN PO PAIN SCALE 4 TO 10 Last administered on 08/06/17at 05:36; Start 08/01/17 at 09:00; Stop 08/09/17 at 09:39; Status DC Pharmacy Profile Note 0 ml @ 0 mls/hr UNSCH OTHER ; Start 07/29/17 at 23:15; Stop 08/06/17 at 14:40; Status DC Senna/Docusate Sodium (Emilie-Colace) 1 tab BID PO Last administered on at 21:14; Start 07/30/17 at 09:00 Sennosides (Senokot) 17.2 mg Q12H PRN PO Moderate constipation; Start 07/29/17 at 23:15 Sodium Chloride (NS Flush) 2 ml BID IV FLUSH Last administered on 08/13/17at 08: 07; Start 07/30/17 at 09:00 Vancomycin HCl 1000 mg/Sodium Chloride 250 ml @ 250 mls/hr ONCE ONCE IV Last administered on 07/30/17at 12:08; Start 07/30/17 at 12:00; Stop 07/30/17 at 12:59 ; Status DC Vancomycin HCl 1500 mg/Sodium Chloride 515 ml @ 257.5 mls/ hr ONCE ONCE IV Last administered on 07/31/17at 18:19; Start 07/31/17 at 18:00; Stop 07/31/17 at 19: 59; Status DC Vancomycin HCl 1750 mg/Sodium Chloride 517.5 ml @ 257.5 mls/ hr ONCE ONCE IV Last administered on 08/06/17at 14:05; Start 08/06/17 at 13:00; Stop 08/06/17 at 14: 40; Status DC Vancomycin HCl 2000 mg/Sodium Chloride 520 ml @ 250 mls/hr ONCE ONCE IV Last administered on 08/02/17at 14:50; Start 08/02/17 at 14:00; Stop 08/02/17 at 16:04; Status DC Vancomycin/Sodium Chloride 200 ml @ 200 mls/hr ONCE ONCE IV Last administered on 07/29/17at 23:55; Start 07/30/17 at 00:00; Stop 07/30/17 at 00:59 ; Status DC Zolpidem Tartrate (Ambien) 5 mg ONCE ONCE PO Last administered on 08/13/17at 01 :45; Start 08/13/17 at 01:45; Stop 08/13/17 at 01:46; Status DC A/P Problem List: (1) Osteomyelitis ICD Code: M86.9 - Osteomyelitis, unspecified (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 - Aneurysm of unspecified site (3) Cocaine abuse ICD Code: F14.10 - Cocaine abuse, uncomplicated (4) Hyperkalemia ICD Code: E87.5 - Hyperkalemia (5) Hyponatremia ICD Code: E87.1 - Hypo-osmolality and hyponatremia (6) CKD (chronic kidney disease) stage 3, GFR 30-59 ml/min ICD Code: N18.3 - Chronic kidney disease, stage 3 (moderate) Assessment and Plan Osteomyelitis L5 vertebra Patient underwent a CT-guided removal of fluid for culture as well as disc biopsy on 07/31/2017 Blood culture grew out strep anginousis Fluid cultures grew out skin pooja MRI of the lumbar spine repeated on 08/08 with L4-5 discitis with bilateral psoas abscess. Some progression compared to prior scan. continue IV Rocephin. neurosurgery following and plan for surgery - possibly today. ID following. bacteremia with strep. continue antibiotics per ID. evaluated by GI for colonoscopy which the patient declined. Altered mental status- likely drug-induced.now has resolved. history of cocaine abuse with positive urine toxicology for cocaine during this hospitalization. s/p LP; with negative fluid culture. continue to monitor. psych consulted; patient is capable of making decisions. 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 Likely related to cocaine abuse Continue to follow trend anemia of chronic disease H/H stable. will monitor H/H for now. DVT prophylaxis SCDs palliative care following. Discharge Planning plan for surgical intervention today-per neurosurgery. Mainor Grace MD August 14, 2017 07:41
[2017-08-14] MEDS: FAMOTIDINE 20 MG TAB PO SCH ×2 (07:53→21:00)
[2017-08-14] MEDS: DOCUSATE SODIUM 50 MG/SENNA 8.6 MG TAB PO SCH ×2 (07:54→21:00)
[2017-08-14] MEDS: SODIUM CHLORIDE 0.9% FLUSH 10 ML FLUSH IV FLUSH SCH ×2 (07:54→22:05)
[2017-08-14] MEDS: LACTIC ACID (AMMONIUM LACTATE) 12% LOTION 225 GM BTL TOPICAL SCH ×2 (07:56→22:05)
[2017-08-14 08:00] VITALS: BP 143/89; PULSE 105; RESP 16; TEMP 98.4; O2SAT 94
[2017-08-14] MEDS: SODIUM CHLOR 0.9% 1000 ML INJ 1,000 ML IV SCH ×3 (08:53→20:00)
--- NOTE | 2017-08-14 10:18 | HHI.IDPN ---
Subjective Subjective Remarks Patient seen and examined on behalf of Dr. Goldstein Mr. Gee is a 57-year-old -[place] male with past medical history significant for rheumatoid arthritis on prednisone. From infectious disease standpoint his past medical history significant for prior history of strep epidural abscess as well as bacteremia treated with IV antibiotics and also needing L4 partial laminectomy in 2013 as well as an abscess on the skin of his back.. His past medical history is also significant for chronic kidney disease stage III, chronic back pain, cocaine abuse and tobacco abuse who presented to the emergency department with complaints of severe back pain. Patient is an extremely poor historian and reports that he has had a prior visit to the emergency room on July 23, 2017 with similar symptoms. An MRI of the L-spine did not show any evidence of infection patient was asked to follow-up with Dr. Pineda whom he has seen in the past. On arrival, BP 125/71, HR 86, O2 sat 100% RA, Afebrile. WBC 20.8. Na 128. K+ 5.5. Creatinine 2.84, previously 2.97 on 07/23/2017. INR 1.1. UA negative for UTI. 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 S/p Vanc/ Rocephin in ER. At the time of my evaluation patient is on a regular floor. Appears to be comfortable not in significant pain involving his extremities. Patient reports tingling numbness and extreme pain in his bilateral lower extremities right more than left. Patient denies any bowel bladder incontinence. Denies any decrease in perineal sensation. Infectious diseases consulted for evaluation and management of discitis and epidural abscess. Notes reviewed [facility] nursing staff - scheduled for surgery at 1400 today Patient complains of back pain, requesting more pain medication seems irritable no fever or chills no rash no N/V no diarrhea Afebrile MRI repeat showing progression of infection, and dev of lenin psoas abscess LP results noted, WBC only 5, but with low glucose and elevated protein 07/29 BCX + strep anginosus/milleri. Repeat BCX 08/02 with no growth x 5 days WBC WNL Antibiotics Ceftriaxone IV Lines Line sites with no e.o infection. Past Medical History reviewed. (Jeni Reed) Allergies: Coded Allergies: *MDRO Multi-Drug Resistant Organism (Verified Adverse Reaction, Unknown, ) MRSA (leg wound) - 10/2006 MRSA PCR screen positive - 10/2014 Objective . Vital Signs Date Time Temp Pulse Resp B/P (MAP) Pulse Ox O2 Delivery O2 Flow Rate FiO2 08/14/17 08:00 98.4 105 16 143/89 (107) 94 08/14/17 06:32 99.2 107 18 131/74 (93) 93 08/14/17 00:00 99.2 98 22 143/83 (103) 92 08/13/17 20:00 99.0 102 18 122/69 (86) 91 08/13/17 17:59 16 08/13/17 16:50 18 08/13/17 16:00 98.8 103 16 134/80 (98) 93 08/13/17 12:00 98.8 105 16 123/87 (99) 93 08/14/17 08/14/17 08/15/17 15:00 23:00 07:00 Output Total 400 ml Balance -400 ml Output Urine Total 400 ml . Laboratory Tests Test 08/14/17 06:41 White Blood Count 5.8 TH/MM3 Red Blood Count 3.19 MIL/MM3 Hemoglobin 9.0 GM/DL Hematocrit 27.6 % Mean Corpuscular Volume 86.3 FL Mean Corpuscular Hemoglobin 28.3 PG Mean Corpuscular Hemoglobin Concent 32.8 % Red Cell Distribution Width 15.4 % Platelet Count 179 TH/MM3 Mean Platelet Volume 7.5 FL Neutrophils (%) (Auto) 65.9 % Lymphocytes (%) (Auto) 14.6 % Monocytes (%) (Auto) 12.5 % Eosinophils (%) (Auto) 5.9 % Basophils (%) (Auto) 1.1 % Neutrophils # (Auto) 3.8 TH/MM3 Lymphocytes # (Auto) 0.8 TH/MM3 Monocytes # (Auto) 0.7 TH/MM3 Eosinophils # (Auto) 0.3 TH/MM3 Basophils # (Auto) 0.1 TH/MM3 CBC Comment DIFF FINAL Differential Comment Imaging Last Impressions Lumbar Spine MRI 08/08/17 0000 Signed Impressions: Service Date/Time: Tuesday, August 08, 2017 13:37 - CONCLUSION: Substantial progression as described above. Roly Reina MD FACR Lumbar Puncture Fluoroscopy 08/08/17 0000 Signed Impressions: Service Date/Time: Tuesday, August 08, 2017 15:42 - CONCLUSION: Uncomplicated fluoroscopically guided lumbar puncture. Fady Chan MD Chest X-Ray 08/07/17 0000 Signed Impressions: Service Date/Time: Monday, August 07, 2017 14:51 - CONCLUSION: 1. No acute findings. Elevated right hemidiaphragm. Tortuous aorta. Jack Travis MD Needle Biopsy/Aspiration X-Ray 07/31/17 0000 Signed Impressions: Service Date/Time: Monday, July 31, 2017 13:29 - CONCLUSION: Uncomplicated needle biopsy of the L4/L5 disc space as above. Candelario Reina MD Abdomen/Pelvis CT 07/29/17 0000 Signed Impressions: Service Date/Time: Saturday, July 29, 2017 22:14 - CONCLUSION: 1. Significant new prevertebral soft tissue fullness and stranding centered at the L5 level. There is associated sclerosis and erosive changes in the anterior L5 vertebral body which appear unchanged from recent exams. Overall, findings are concerning for discitis and osteomyelitis. Consider repeat MRI examination for further evaluation. 2. 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 However, evaluation is significantly limited due to lack of IV contrast on this exam. This was not present on remote prior CT exam. A mycotic aneurysm cannot be entirely excluded. Contrast enhanced examination would be greatly beneficial in further evaluation. 3. Nodular appearing liver contour consistent with cirrhosis. 4. IVC filter in place. 5. Cholelithiasis. Tanner Jones MD Physical Exam GENERAL: Well developed well nourished male patient, INAD. Awake and alert. Not very cooperative with exam today. SKIN: Warm and dry. No obvious rash. HEAD: Atraumatic. Normocephalic. EYES: EOMI. No scleral icterus. No injection or drainage. ENT: No gross bleeding. Moist mucus membranes. NECK: Trachea midline. Moves neck in all directions. No rigidity noted. CARDIOVASCULAR: Tachycardic. RESPIRATORY: Nonlabored. Clear to auscultation anteriorly. GASTROINTESTINAL: Soft, nontender, (+) BS MUSCULOSKELETAL: No pedal edema NEUROLOGICAL: Awake and alert. Moves all extremities spontaneously. Normal speech. PSYCHIATRIC: Irritable mood. Somewhat cooperative with exam. IV line sites with no e.o infection (Jeni Reed) Assessment & Plan Remarks Strep bacteremia, probable endocarditis Probable meningitis based on glucose and total protein (partially treated by the time LP done) Epidural abscess Discitis. 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 Immune compromised host. Acute on chronic kidney disease, improving Hyperkalemia Recs For surgery today with vascular and neurosurgery Will follow up on intraoperative C/S Continue ceftriaxone IV q12hrs needed for [employer] infection, discitis. Follow clinically Further recommendations to follow (Jeni Reed) Remarks The exam, history, and the medical decision-making described in the above note were completed with the assistance of the mid-level provider. I reviewed and agree with the findings presented. I attest that I had a [id number] encounter with the patient on the same day, and personally performed and documented my assessment and findings in the medical record. Patient seen and examined prior to surgery at ~ noon NPO for surgery Exam Awake No focal deficits CTA BL Recs Continue Ceftriaxone IV q12hrs Will follow in am post op notes and cultures if any. (Latricia Goldstein MD) Jeni Reed August 14, 2017 10:18 Latricia Goldstein MD August 14, 2017 20:39
[2017-08-14 11:56] LABS: INTERNATIONAL NORMALIZED RATIO 1.2 RATIO; PROTHROMBIN TIME - PATIENT 12.3 SEC (9.8-11.6)
[2017-08-14 12:00] VITALS: BP 131/87; PULSE 101; RESP 16; TEMP 98; O2SAT 92
[2017-08-14 12:08] LABS: BICARBONATE 24.9 MEQ/L (21.0-32.0); CALCIUM 8.5 MG/DL (8.5-10.1); CREATININE 1.5 MG/DL (0.60-1.30)
[2017-08-14] MEDS ORDERED: ACETAMINOPHEN 1000 MG/100 ML 100 ML IV ONE (12:50)
[2017-08-14] MEDS ORDERED: ARTIFICIAL TEARS OPTH OINT 3.5 APPLIC/3.5 GM TUBO ONE ×2 (12:50→13:52)
[2017-08-14] MEDS ORDERED: LIDOCAINE 1%/EPINEPHrine 1:100,000 SOLN 20 ML VIAL ONE (14:41)
[2017-08-14] MEDS ORDERED: THROMBIN (TOPICAL) 5,000 UNIT VIAL ONE (14:41)
[2017-08-14] MEDS ORDERED: GELFOAM SIZE 100 ONE (14:41)
[2017-08-14] MEDS ORDERED: GENTAMICIN SULFATE 80 MG/2 ML VIAL ONE (14:42)
[2017-08-14] MEDS ORDERED: *HYDROmorphone PF 0.5 MG/0.5 ML PERIprocedure ONLY ONE (18:49)
[2017-08-14] MEDS ORDERED: *MEPERIDINE 25 MG INJ VIAL PERIprocedural Use ONLY ONE (18:49)
[2017-08-14] MEDS ORDERED: MIDAZOLAM HCL 2 MG/2 ML VIAL ONE (18:53)
[2017-08-14] MEDS: LORazepam 2 MG/ML VIAL IV PUSH PRN (19:10)
[2017-08-14] MEDS ORDERED: *morphine SULFATE 10 MG/ML PERIprocedure ONLY ONE (19:11)
--- NOTE | 2017-08-14 19:18 | EKG ---
Date Performed: 08/14/2017 Time Performed: 09:34:11 PTAGE: 57 years EKG: SINUS TACHYCARDIA POSSIBLE LEFT ATRIAL ENLARGEMENT LEFT BUNDLE BRANCH BLOCK ABNORMAL ECG wh en compared to prior tracing, patient is now tachycardic and has a new left bundle branch block. PREVIOUS TRACING : 06/09/2015 14.08 DOCTOR: Samra Fuentes Interpretating Date/Time 08/14/2017 19:17:21
[2017-08-14] MEDS ORDERED: NALOXONE HCL 0.4 MG/ML AMP IV PUSH PRN (19:30)
[2017-08-14] MEDS ORDERED: HYDROmorphone HCL PF 1 MG/ML VIAL IV PUSH PRN (19:30)
[2017-08-14] MEDS ORDERED: DO NOT ADM ANY ANTICOAGULANT DRUGS PRN (20:00)
[2017-08-14] MEDS ORDERED: ALBUTEROL SULFATE 90 MCG/ACT HFA 8 GM INHALER INH PRN (20:30)
--- NOTE | 2017-08-14 20:46 | PD.OP ---
Operative Report Date of Surgery: August 14, 2017 Preoperative Diagnosis: (1) Osteomyelitis Lumbar discitis, osteomyelitis Lumbar retroperitoneal-bilateral psoas abscess Postoperative Diagnosis: (1) Osteomyelitis Lumbar discitis, osteomyelitis Lumbar retroperitoneal-bilateral psoas abscess Procedure: Lateral oblique approach for drainage of lumbar retroperitoneal and bilateral psoas muscle abscess Anesthesia: General Surgeon: Aaron Felipe Medical Imaging Director(s): None Operation and Findings: Findings: Extensive psoas muscle abscess. Severe discitis-purulent material in disc space. Procedure in detail: The patient was placed in lateral decubitus position all extremities properly padded. The left flank and abdominal region was prepped and draped in sterile fashion. Appropriate timeout procedure was performed with all personnel present and in agreement proceeded with the initial incision and anterior oblique approach to the lumbar spine. The undersigned assisted with initial exposure. The psoas muscle was swollen, edematous. The encapsulated abscess cavity was opened and copious amount of purulent material drained followed by copious antibiotic irrigation until clear. The disc space was inspected, free of any normal disc material with only some necrotic debris. Closure was performed per general surgery as this dictated separately. Guero Felipe MD August 14, 2017 20:46
[2017-08-14 21:00] VITALS: BP 137/81; PULSE 86; RESP 12; TEMP 97.7; O2SAT 100
--- NOTE | 2017-08-14 21:01 | MP ---
cc: Felicia Sanchez MD DATE OF OPERATION: 08/14/2017 DATE OF PROCEDURE: 08/14/2017. PREOPERATIVE DIAGNOSIS: Psoas abscess, paraspinal abscesses, sepsis. POSTOPERATIVE DIAGNOSIS: Psoas abscess, paraspinal abscesses, sepsis. OPERATIVE PROCEDURE: Retroperitoneal approach to the psoas muscle and drainage of psoas abscess and paraspinal abscess drainage. SURGEON: Alyson Sanchez MD CO-SURGEON: Dr. Felipe ANESTHESIA: General. ESTIMATED BLOOD LOSS: 100 mL. DESCRIPTION OF PROCEDURE: The patient prepped and draped in usual fashion and an oblique incision made over the iliac crest and above in a slightly rounded fashion. This wound is deepened down through the skin and subcutaneous tissue to the external oblique muscle. Internal oblique muscle is split in direction of the fibers and then transversus abdominis muscle is also split and retracted, but partially had to be cut to gain access because of some adhesions. Transverse abdominis muscle is simply split. The peritoneum is reached. Peritoneum is now deflected medially, taking with it large bowel, small bowel and all the contents, as we are deflecting medially toward the aorta. The aorta is visualized and so are the testicular artery and veins. Finally, aorta is reached and we could reach, at this point, over the aorta into the right side of the abdomen. The right psoas muscle does not appear to be swollen. However, the left one is. The incision is made now over the psoas muscle and about 250 mL of yellowish purulent material is obtained. A large incision is essentially made, measuring about 4 inches in length along the muscle and any possibly loculated areas are broken up by blunt dissection. Meticulous hemostasis obtained. The area irrigated with copious amounts of saline and 2 ALY drains placed, one into the muscle cavity, where the abscess wall is and then the other one in the retroperitoneal space. Area irrigated once more with copious amounts of saline and then the retroperitoneum allowed to fall back. The ureter is once more checked for integrity and then incisions closed in layers using #1 Vicryl running stitch for internal oblique muscle, external oblique muscle, subcutaneous tissue and skin is closed with lamin. The patient tolerated the procedure well. MD DANIELE Lira/MILLICENT , 08:28 PM , 09:00 PM
[2017-08-14 23:22] VITALS: O2SAT 100
[2017-08-15] VITALS (7 sets, daily range): BP systolic 105–146; BP diastolic 72–87; PULSE 71–104; RESP 13–21; TEMP 97.2–101.3; O2SAT 91–97
[2017-08-15] MEDS: cefTRIAXone INJ 2,000 MG in SODIUM CHLORIDE 0.9% INJ 100 ML IV SCH ×2 (05:01→16:30)
[2017-08-15] MEDS: HYDROmorphone HCL PF 0.5 MG/0.5 ML SYRINGE IV PUSH PRN ×2 (05:02→11:39)
[2017-08-15] MEDS: SODIUM CHLOR 0.9% 1000 ML INJ 1,000 ML IV SCH (05:28)
[2017-08-15 06:20] LABS: AUTOMATED NEUTROPHIL # 6.4 TH/MM3 (1.8-7.7); BASOPHIL % 0.6 % (0.0-2.0); EOSINOPHIL # 0.2 TH/MM3 (0-0.4); EOSINOPHIL % 3.1 % (0.0-4.0); HEMATOCRIT 25.8 % (39.0-51.0); HEMOGLOBIN 8.5 GM/DL (13.0-17.0); LYMPH % 6.2 % (9.0-44.0); LYMPHOCYTE # 0.5 TH/MM3 (1.0-4.8); MEAN CELL VOLUME 85.7 FL (80.0-100.0); MEAN CORPUSCULAR HEMOGLOBIN 28.1 PG (27.0-34.0); MEAN CORPUSCULAR HGB CONC 32.8 % (32.0-36.0); MEAN PLATELET VOLUME 7.6 FL (7.0-11.0); MONO % 7.8 % (0.0-8.0); MONOCYTE # 0.6 TH/MM3 (0-0.9); NEUT % 82.3 % (16.0-70.0); PLATELET COUNT 209 TH/MM3 (150-450); RED BLOOD COUNT 3.01 MIL/MM3 (4.50-5.90); WHITE BLOOD COUNT 7.7 TH/MM3 (4.0-11.0)
[2017-08-15 06:32] LABS: BICARBONATE 23.2 MEQ/L (21.0-32.0); CALCIUM 8.2 MG/DL (8.5-10.1); CREATININE 1.42 MG/DL (0.60-1.30)
[2017-08-15] MEDS: ACETAMINOPHEN 325 MG TAB PO PRN (07:38)
[2017-08-15] MEDS: LACTIC ACID (AMMONIUM LACTATE) 12% LOTION 225 GM BTL TOPICAL SCH ×2 (10:08→20:32)
[2017-08-15] MEDS: SODIUM CHLORIDE 0.9% FLUSH 10 ML FLUSH IV FLUSH SCH ×2 (10:08→20:21)
[2017-08-15] MEDS: cloNIDine HCL 0.1 MG TAB PO SCH (10:08)
[2017-08-15] MEDS: DOCUSATE SODIUM 50 MG/SENNA 8.6 MG TAB PO SCH ×2 (10:08→20:32)
[2017-08-15] MEDS: FAMOTIDINE 20 MG TAB PO SCH ×2 (10:08→20:32)
--- NOTE | 2017-08-15 10:08 | HHI.IDPN ---
Subjective Subjective Remarks Patient seen and examined on behalf of Dr. Goldstein Mr. Gee is a 57-year-old -[place] male with past medical history significant for rheumatoid arthritis on prednisone. From infectious disease standpoint his past medical history significant for prior history of strep epidural abscess as well as bacteremia treated with IV antibiotics and also needing L4 partial laminectomy in 2013 as well as an abscess on the skin of his back.. His past medical history is also significant for chronic kidney disease stage III, chronic back pain, cocaine abuse and tobacco abuse who presented to the emergency department with complaints of severe back pain. Patient is an extremely poor historian and reports that he has had a prior visit to the emergency room on July 23, 2017 with similar symptoms. An MRI of the L-spine did not show any evidence of infection patient was asked to follow-up with Dr. Pineda whom he has seen in the past. On arrival, BP 125/71, HR 86, O2 sat 100% RA, Afebrile. WBC 20.8. Na 128. K+ 5.5. Creatinine 2.84, previously 2.97 on 07/23/2017. INR 1.1. UA negative for UTI. 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 S/p Vanc/ Rocephin in ER. At the time of my evaluation patient is on a regular floor. Appears to be comfortable not in significant pain involving his extremities. Patient reports tingling numbness and extreme pain in his bilateral lower extremities right more than left. Patient denies any bowel bladder incontinence. Denies any decrease in perineal sensation. Infectious diseases consulted for evaluation and management of discitis and epidural abscess. Notes reviewed [facility] nursing staff - no issues overnight. Per marialuisa Sadler for regular diet, move to the floor. Operative notes reviewed - removed 250ml yellowish purulent material obtained lethargic Patient complains of dry mouth, he is asking for apple juice pain controlled no fever or chills no rash no N/V no diarrhea Afebrile WBC WNL MRI repeat showing progression of infection, and dev of lenin psoas abscess LP results noted, WBC only 5, but with low glucose and elevated protein 07/29 BCX + strep anginosus/milleri. Repeat BCX 08/02 with no growth x 5 days Intraop cx pending Antibiotics IV Ceftriaxone q 12 Lines Line sites with no e.o infection. Past Medical History reviewed. (Jeni Reed) Allergies: Coded Allergies: *MDRO Multi-Drug Resistant Organism (Verified Adverse Reaction, Unknown, ) MRSA (leg wound) - 10/2006 MRSA PCR screen positive - 10/2014 Objective . Vital Signs Date Time Temp Pulse Resp B/P (MAP) Pulse Ox O2 Delivery O2 Flow Rate FiO2 08/15/17 08:28 97 21 08/15/17 04:00 98.3 104 21 146/81 (102) 97 08/15/17 00:00 98.0 88 13 136/78 (97) 97 08/14/17 23:22 100 Nasal Cannula 3.00 08/14/17 21:00 97.7 86 12 137/81 (99) 100 Automatic Cuff 08/14/17 20:45 97.7 84 14 107/68 (81) 100 Nasal Cannula 3 120/73 (89) 08/14/17 20:30 85 18 110/75 (87) 99 Nasal Cannula 3 133/79 (97) 08/14/17 20:15 84 18 102/63 (76) 99 Nasal Cannula 3 120/69 (86) 08/14/17 20:00 84 12 102/63 (76) 99 Nasal Cannula 3 120/69 (86) 08/14/17 19:45 87 19 118/69 (85) 97 Nasal Cannula 3 134/75 (94) 08/14/17 19:30 86 20 132/86 (101) 99 Nasal Cannula 3 145/81 (102) 08/14/17 19:15 97.5 85 25 130/81 (97) 95 Nasal Cannula 3 133/70 (91) 08/14/17 12:00 98.0 101 16 131/87 (102) 92 . Laboratory Tests Test 08/14/17 06:41 08/15/17 05:35 White Blood Count 5.8 TH/MM3 7.7 TH/MM3 Red Blood Count 3.19 MIL/MM3 3.01 MIL/MM3 Hemoglobin 9.0 GM/DL 8.5 GM/DL Hematocrit 27.6 % 25.8 % Mean Corpuscular Volume 86.3 FL 85.7 FL Mean Corpuscular Hemoglobin 28.3 PG 28.1 PG Mean Corpuscular Hemoglobin Concent 32.8 % 32.8 % Red Cell Distribution Width 15.4 % 15.0 % Platelet Count 179 TH/MM3 209 TH/MM3 Mean Platelet Volume 7.5 FL 7.6 FL Neutrophils (%) (Auto) 65.9 % 82.3 % Lymphocytes (%) (Auto) 14.6 % 6.2 % Monocytes (%) (Auto) 12.5 % 7.8 % Eosinophils (%) (Auto) 5.9 % 3.1 % Basophils (%) (Auto) 1.1 % 0.6 % Neutrophils # (Auto) 3.8 TH/MM3 6.4 TH/MM3 Lymphocytes # (Auto) 0.8 TH/MM3 0.5 TH/MM3 Monocytes # (Auto) 0.7 TH/MM3 0.6 TH/MM3 Eosinophils # (Auto) 0.3 TH/MM3 0.2 TH/MM3 Basophils # (Auto) 0.1 TH/MM3 0.0 TH/MM3 CBC Comment DIFF FINAL DIFF FINAL Differential Comment Laboratory Tests Test 08/14/17 11:03 08/15/17 05:35 Blood Urea Nitrogen 17 MG/DL 17 MG/DL Creatinine 1.50 MG/DL 1.42 MG/DL Random Glucose 63 MG/DL 69 MG/DL Calcium Level 8.5 MG/DL 8.2 MG/DL Sodium Level 136 MEQ/L 136 MEQ/L Potassium Level 4.4 MEQ/L 4.7 MEQ/L Chloride Level 102 MEQ/L 104 MEQ/L Carbon Dioxide Level 24.9 MEQ/L 23.2 MEQ/L Anion Gap 9 MEQ/L 9 MEQ/L Estimat Glomerular Filtration Rate 59 ML/MIN 63 ML/MIN Microbiology Date/Time Source Procedure Growth Status 08/14/17 18:20 Abscess Other Fungal Smear Pending Received 08/14/17 18:20 Abscess Other Fungal Culture Pending Received 08/14/17 18:20 Abscess Other Acid Fast Stain Pending Received 08/14/17 18:20 Abscess Other Mycobacterial Culture Pending Received 08/14/17 18:20 Abscess Other Gram Stain Pending Received 08/14/17 18:20 Abscess Other Wound Culture Pending Received Imaging Last Impressions Lumbar Spine MRI 08/08/17 0000 Signed Impressions: Service Date/Time: Tuesday, August 08, 2017 13:37 - CONCLUSION: Substantial progression as described above. Roly Reina MD FACR Lumbar Puncture Fluoroscopy 08/08/17 0000 Signed Impressions: Service Date/Time: Tuesday, August 08, 2017 15:42 - CONCLUSION: Uncomplicated fluoroscopically guided lumbar puncture. Fady Chan MD Chest X-Ray 08/07/17 0000 Signed Impressions: Service Date/Time: Monday, August 07, 2017 14:51 - CONCLUSION: 1. No acute findings. Elevated right hemidiaphragm. Tortuous aorta. Jack Travis MD Needle Biopsy/Aspiration X-Ray 07/31/17 0000 Signed Impressions: Service Date/Time: Monday, July 31, 2017 13:29 - CONCLUSION: Uncomplicated needle biopsy of the L4/L5 disc space as above. Candelario Reina MD Abdomen/Pelvis CT 07/29/17 0000 Signed Impressions: Service Date/Time: Saturday, July 29, 2017 22:14 - CONCLUSION: 1. Significant new prevertebral soft tissue fullness and stranding centered at the L5 level. There is associated sclerosis and erosive changes in the anterior L5 vertebral body which appear unchanged from recent exams. Overall, findings are concerning for discitis and osteomyelitis. Consider repeat MRI examination for further evaluation. 2. 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 However, evaluation is significantly limited due to lack of IV contrast on this exam. This was not present on remote prior CT exam. A mycotic aneurysm cannot be entirely excluded. Contrast enhanced examination would be greatly beneficial in further evaluation. 3. Nodular appearing liver contour consistent with cirrhosis. 4. IVC filter in place. 5. Cholelithiasis. Tanner Jones MD Physical Exam GENERAL: Well developed well nourished male patient, INAD. Awake but somewhat lethargic postop. SKIN: Warm and dry. No obvious rash. HEAD: Atraumatic. Normocephalic. EYES: EOMI. No scleral icterus. No injection or drainage. ENT: No gross bleeding. Dry mucus membranes. NECK: Trachea midline. Moves neck in all directions. No rigidity noted. CARDIOVASCULAR: Tachycardic. RESPIRATORY: Nonlabored. Diminished. Clear to auscultation anteriorly. GASTROINTESTINAL: Soft, postop with surgical incision over left side of abdomen with dry and intact dressing, ALY drain x 2 with serosanguineous drainage noted MUSCULOSKELETAL: No pedal edema NEUROLOGICAL: Awake. Moves all extremities spontaneously. Normal speech. PSYCHIATRIC: Calm and cooperative. IV line sites with no e.o infection (Jeni Reed) Assessment & Plan Remarks Strep bacteremia, probable endocarditis Probable meningitis based on glucose and total protein (partially treated by the time LP done) Epidural abscess Discitis. - progression of infection on MRI repeat Bilateral psoas fluid collection s/p I&D 08/14 with 250ml yellowish purulent material removed 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 Immune compromised host. Acute on chronic kidney disease, improving Hyperkalemia, resolved Hep B reactive Anemia Recs Will follow up on intraoperative C/S Continue ceftriaxone IV q12hrs needed for [employer] infection, discitis, psoas abscess Follow clinically Further recommendations to follow (Jeni Reed) Remarks The exam, history, and the medical decision-making described in the above note were completed with the assistance of the mid-level provider. I reviewed and agree with the findings presented. I attest that I had a [id number] encounter with the patient on the same day, and personally performed and documented my assessment and findings in the medical record. More alert. s/p surgery has 2 ALY drains with sanguinous discharge CTA BL Recs Continue Ceftriaxone IV q12hrs Fever likely post op Follow cultures Follow clinically. (Latricia Goldstein MD) Jeni Reed August 15, 2017 10:08 Latricia Goldsteni MD August 15, 2017 15:12
--- NOTE | 2017-08-15 10:32 | PD.CAR.PN ---
CVT Progress Note Subjective/Hospital Course: Referral received Studies reviewed Full consult to follow Oanh Craig 08/10/2017 Patient with retroperitoneal infection involving the vertebra and paraspinal muscles and psoas muscles extending toward the pelvis, with multiple abscesses throughout I have discussed the care with Dr. Felipe, Dr. Toney and the patient At this point the most preferred way to access this would be through a left preperitoneal approach in the same fashion we access abdominal aorta for preperitoneal lateral aneurysmorrhaphy. This incision would give quite plenty of space and access to drain all this. While technically this is a quite advantageous approach, I have to stress that ability to completely eliminate the infection and cure the patient permanently is very limited. The procedure is mainly meant to contain the infection clean everything up and minimize the sequela of the same If patient agrees with surgery has to be cleared that this is not most likely going to cure him but will definitely slow the infection down set it back and make it controllable. In addition the surgery itself carries obviously inherent risks of prolonged morbidity and mortality ranging in about 5-10% range The other option is not to do anything and make patient comfortable with palliative care but this will definitely leave the patient's demise I will be happy to discuss this with other family members this patient may desire and I will definitely be available for the surgery any time 08/13/2017 Patient with extensive retroperitoneal infections due to osteomyelitis now spread to the soft tissues including both psoas muscles I have discussed this with patient at length and tried to explain that the surgery will likely not be curative but will only temporize the infection and completely clearing it is almost impossible I also explained to the patient that this approach and surgery of course carries significant risk of morbidity and mortality in the further details of the surgery have to be discussed with neurosurgery I discussed this today with Dr. Felipe and patient would like to proceed with surgery so I will provide preperitoneal/retroperitoneal approach for further neurosurgical intervention 08/15/2017 Patient underwent yesterday left retroperitoneal exposure of the psoas muscles with drainage of large abscesses with about 250 cc of purulent material drained This morning patient is awake alert oriented Abdomen soft active bowel sounds and incision is clean and dry with dressing intact ALY drainage serosanguineous Patient has had several spikes of fever to 101.4 and considering that we mobilized all the purulent material from the back this is not uncommon and patient will have periods of bacteremia Currently on appropriate antibiotics and cultures from the surgery pending Plan Advance to diet Out of bed Transfer to floor Objective: Vital Signs Date Time Temp Pulse Resp B/P (MAP) Pulse Ox O2 Delivery O2 Flow Rate FiO2 08/15/17 08:28 97 21 08/15/17 04:00 98.3 104 21 146/81 (102) 97 08/15/17 00:00 98.0 88 13 136/78 (97) 97 08/14/17 23:22 100 Nasal Cannula 3.00 08/14/17 21:00 97.7 86 12 137/81 (99) 100 Automatic Cuff 08/14/17 20:45 97.7 84 14 107/68 (81) 100 Nasal Cannula 3 120/73 (89) 08/14/17 20:30 85 18 110/75 (87) 99 Nasal Cannula 3 133/79 (97) 08/14/17 20:15 84 18 102/63 (76) 99 Nasal Cannula 3 120/69 (86) 08/14/17 20:00 84 12 102/63 (76) 99 Nasal Cannula 3 120/69 (86) 08/14/17 19:45 87 19 118/69 (85) 97 Nasal Cannula 3 134/75 (94) 08/14/17 19:30 86 20 132/86 (101) 99 Nasal Cannula 3 145/81 (102) 08/14/17 19:15 97.5 85 25 130/81 (97) 95 Nasal Cannula 3 133/70 (91) 08/14/17 12:00 98.0 101 16 131/87 (102) 92 Labs: Laboratory Tests Test 08/15/17 05:35 White Blood Count 7.7 TH/MM3 (4.0-11.0) Red Blood Count 3.01 MIL/MM3 (4.50-5.90) Hemoglobin 8.5 GM/DL (13.0-17.0) Hematocrit 25.8 % (39.0-51.0) Mean Corpuscular Volume 85.7 FL (80.0-100.0) Mean Corpuscular Hemoglobin 28.1 PG (27.0-34.0) Mean Corpuscular Hemoglobin Concent 32.8 % (32.0-36.0) Red Cell Distribution Width 15.0 % (11.6-17.2) Platelet Count 209 TH/MM3 (150-450) Mean Platelet Volume 7.6 FL (7.0-11.0) Neutrophils (%) (Auto) 82.3 % (16.0-70.0) Lymphocytes (%) (Auto) 6.2 % (9.0-44.0) Monocytes (%) (Auto) 7.8 % (0.0-8.0) Eosinophils (%) (Auto) 3.1 % (0.0-4.0) Basophils (%) (Auto) 0.6 % (0.0-2.0) Neutrophils # (Auto) 6.4 TH/MM3 (1.8-7.7) Lymphocytes # (Auto) 0.5 TH/MM3 (1.0-4.8) Monocytes # (Auto) 0.6 TH/MM3 (0-0.9) Eosinophils # (Auto) 0.2 TH/MM3 (0-0.4) Basophils # (Auto) 0.0 TH/MM3 (0-0.2) CBC Comment DIFF FINAL Differential Comment Blood Urea Nitrogen 17 MG/DL (7-18) Creatinine 1.42 MG/DL (0.60-1.30) Random Glucose 69 MG/DL (74-106) Calcium Level 8.2 MG/DL (8.5-10.1) Sodium Level 136 MEQ/L (136-145) Potassium Level 4.7 MEQ/L (3.5-5.1) Chloride Level 104 MEQ/L (98-107) Carbon Dioxide Level 23.2 MEQ/L (21.0-32.0) Anion Gap 9 MEQ/L (5-15) Estimat Glomerular Filtration Rate 63 ML/MIN (>89) Result Diagram: 08/15/17 0535 08/15/17 0535 Felicia Sanhcez MD August 15, 2017 10:32
--- NOTE | 2017-08-15 11:55 | RADRPT ---
EXAM DATE/TIME: 08/15/2017 11:34 [facility] COMPARISON: CHEST SINGLE AP, August 07, 2017, 14:51. INDICATIONS : Chest pain and shortness of breath. MEDICAL HISTORY : None. SURGICAL HISTORY : None. ENCOUNTER: Initial ACUITY: 1 day PAIN SCORE: 10/10 LOCATION: Bilateral chest FINDINGS: The lungs are under aerated. There is mild prominence the cardiac silhouette. There is no pneumotho rax or congestive failure. There is no alveolar consolidation CONCLUSION: Mild compensated cardiomegaly Roly Reina MD FACR on August 15, 2017 at 11:52 Board Certified Radiologist. This report was verified electronically.
--- NOTE | 2017-08-15 14:01 | HHI.PR ---
Subjective Remarks shakes and nods his head to my questions. He has no complaints. Objective Vitals Vital Signs Date Time Temp Pulse Resp B/P (MAP) Pulse Ox O2 Delivery O2 Flow Rate FiO2 08/15/17 12:00 100.2 97 16 105/72 (83) 96 08/15/17 08:28 97 21 08/15/17 08:00 101.3 104 15 133/83 (100) 95 08/15/17 04:00 98.3 104 21 146/81 (102) 97 08/15/17 00:00 98.0 88 13 136/78 (97) 97 08/14/17 23:22 100 Nasal Cannula 3.00 08/14/17 21:00 97.7 86 12 137/81 (99) 100 Automatic Cuff 08/14/17 20:45 97.7 84 14 107/68 (81) 100 Nasal Cannula 3 120/73 (89) 08/14/17 20:30 85 18 110/75 (87) 99 Nasal Cannula 3 133/79 (97) 08/14/17 20:15 84 18 102/63 (76) 99 Nasal Cannula 3 120/69 (86) 08/14/17 20:00 84 12 102/63 (76) 99 Nasal Cannula 3 120/69 (86) 08/14/17 19:45 87 19 118/69 (85) 97 Nasal Cannula 3 134/75 (94) 08/14/17 19:30 86 20 132/86 (101) 99 Nasal Cannula 3 145/81 (102) 08/14/17 19:15 97.5 85 25 130/81 (97) 95 Nasal Cannula 3 133/70 (91) I/O 08/14/17 08/14/17 08/14/17 08/15/17 08/15/17 08/15/17 07:00 15:00 23:00 07:00 15:00 23:00 Intake Total 1800 ml 1100 ml Output Total 575 ml 110 ml 1103 ml Balance -575 ml 1690 ml -3 ml Intake Oral 0 ml IV Total 1100 ml Other 1800 ml Output Urine Total 575 ml 0 ml 1025 ml Drainage Total 60 ml 78 ml Estimated Blood Loss 50 ml # Voids 1 # Bowel Movements 0 Result Diagram: 08/15/17 0535 08/15/17 0535 Objective Remarks GENERAL: This is a well-nourished, well-developed patient, in no apparent distress. CARDIOVASCULAR: Regular rate and rhythm RESPIRATORY: Clear to auscultation. Breath sounds equal bilaterally. No wheezes , rales, or rhonchi. MUSCULOSKELETAL: Extremities without clubbing, cyanosis, or edema. NEURO: Alert & Oriented x4 to person, place, sleepy. Moves all ext x4 A/P Problem List: (1) Osteomyelitis ICD Code: M86.9 - Osteomyelitis, unspecified Status: Acute (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 - Aneurysm of unspecified site (3) Cocaine abuse ICD Code: F14.10 - Cocaine abuse, uncomplicated (4) Hyperkalemia ICD Code: E87.5 - Hyperkalemia (5) Hyponatremia ICD Code: E87.1 - Hypo-osmolality and hyponatremia (6) CKD (chronic kidney disease) stage 3, GFR 30-59 ml/min ICD Code: N18.3 - Chronic kidney disease, stage 3 (moderate) Assessment and Plan Osteomyelitis L5 vertebra Patient underwent a CT-guided removal of fluid for culture as well as disc biopsy on 07/31/2017 Blood culture grew out strep anginousis Fluid cultures grew out skin pooja MRI of the lumbar spine repeated on 08/08 with L4-5 discitis with bilateral psoas abscess s/p I and D 08/[address] Craig. continue IV Rocephin. per ID neurosurgery following ID following. bacteremia with strep anginousis. continue antibiotics per ID. evaluated by GI for colonoscopy which the patient declined. Altered mental status- likely drug-induced.now has resolved and improved. history of cocaine abuse with positive urine toxicology for cocaine during this hospitalization. s/p LP; with negative fluid culture. continue to monitor. psych consulted; patient is capable of making decisions. 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 Likely related to cocaine abuse Continue to follow trend anemia of chronic disease H/H stable. will monitor H/H for now. DVT prophylaxis SCDs Discharge Planning per Neurosurgery and ID, likely will need [facility] Shannan Jerry MD August 15, 2017 14:01
--- NOTE | 2017-08-15 14:49 | HHI.NSPN ---
(Apolinar Argueta) History Chief Complaint: Surgical incision pain (Apolinar Argueta) Interval History 07/30: 57-year-old gentleman with a history of lumbar osteomyelitis and discitis with abscess who underwent L4-[address] Felipe from neurosurgery. He has a chronic history of low back pain and more recent MRI scan shows degenerative L4-5 stenosis with facet hypertrophy and grade 1 spondylolisthesis along with some possible L5 anterior vertebral body osteomyelitis with the prevertebral retroperitoneal abscess. Patient was scheduled to follow-up with Dr. Felipe but returned to the emergency room for persistent back pain. Currently he is very sedated but does awaken and relates that his pain is controlled. He has been ambulating with a cane on a chronic basis. No bowel bladder incontinence or any lower extremity weakness noted. Dr. Gamez from neurosurgery coverage over the weekend was consulted and deferred further management to Dr. Felipe who is currently out of town. 08/06: When seen this morning the patient is asleep in bed. He does awaken to voice but is drowsy after that. He complains of pain to the lower back that does radiate down both lower extremities to the knees. He denies any numbness or tingling to the lower extremities. He does have low lumbar tenderness to palpation. He did not have any apparent lower extremity sensory deficits. His motor strength exam was incomplete due to patient not fully participating due to pain and drowsiness. 08/08/2017: Relatively awake and alert. Status post lumbar puncture 08/10: This afternoon the patient is asleep but awakens to voice. After that he is alert and readily interacts. He does say he has some pain to the low back and into the legs but he denies any numbness or tingling. No sensorimotor deficits are noted upon examination. 08/13: The patient is awake when seen this morning. He continues to have low back pain that goes into the legs but he denies any numbness or tingling. He has no evident sensorimotor deficits upon evaluation. 08/14: The patient went for a lateral oblique/retroperitoneal approach for drainage of lumbar retroperitoneal and bilateral psoas muscle abscess by Neurosurgery and General Surgery. Post-operatively the patient was admitted to the ISC unit for further care and monitoring. 08/15: The patient is awake in bed this afternoon when seen. He does have pain to the left lateral abdominal wall/flank at the surgical incisions. He denies any back or lower extremity pain. He has no numbness or tingling to the lower extremities. There are no evident sensorimotor deficits noted upon examination. (Apolinar Argueta) Exam Results 08/13/17 08/13/17 08/14/17 08/14/17 08/15/17 08/15/17 06:00 18:00 06:00 18:00 06:00 18:00 Intake Total 993 ml 2900 ml Output Total 1200 ml 700 ml 575 ml 1213 ml Balance -207 ml -700 ml -575 ml 1687 ml Intake Oral 0 ml IV Total 993 ml 1100 ml Other 1800 ml Output Urine Total 1200 ml 700 ml 575 ml 1025 ml Drainage Total 138 ml Estimated Blood Loss 50 ml # Voids 1 # Bowel Movements 0 0 Vital Signs Date Time Temp Pulse Resp B/P (MAP) Pulse Ox O2 Delivery O2 Flow Rate FiO2 08/15/17 12:00 100.2 97 16 105/72 (83) 96 08/15/17 08:28 97 21 08/15/17 08:00 101.3 104 15 133/83 (100) 95 08/15/17 04:00 98.3 104 21 146/81 (102) 97 08/15/17 00:00 98.0 88 13 136/78 (97) 97 08/14/17 23:22 100 Nasal Cannula 3.00 08/14/17 21:00 97.7 86 12 137/81 (99) 100 Automatic Cuff 08/14/17 20:45 97.7 84 14 107/68 (81) 100 Nasal Cannula 3 120/73 (89) 08/14/17 20:30 85 18 110/75 (87) 99 Nasal Cannula 3 133/79 (97) 08/14/17 20:15 84 18 102/63 (76) 99 Nasal Cannula 3 120/69 (86) 08/14/17 20:00 84 12 102/63 (76) 99 Nasal Cannula 3 120/69 (86) 08/14/17 19:45 87 19 118/69 (85) 97 Nasal Cannula 3 134/75 (94) 08/14/17 19:30 86 20 132/86 (101) 99 Nasal Cannula 3 145/81 (102) 08/14/17 19:15 97.5 85 25 130/81 (97) 95 Nasal Cannula 3 133/70 (91) 08/14/17 12:00 98.0 101 16 131/87 (102) 92 08/14/17 08:00 98.4 105 16 143/89 (107) 94 08/14/17 06:32 99.2 107 18 131/74 (93) 93 08/14/17 00:00 99.2 98 22 143/83 (103) 92 08/13/17 20:00 99.0 102 18 122/69 (86) 91 08/13/17 17:59 16 08/13/17 16:50 18 08/13/17 16:00 98.8 103 16 134/80 (98) 93 08/13/17 12:00 98.8 105 16 123/87 (99) 93 08/13/17 08:00 98.8 106 16 134/77 (96) 93 08/13/17 04:19 99.1 104 18 149/85 (106) 93 08/12/17 23:48 99.3 104 18 144/82 (102) 94 08/12/17 20:00 98.3 99 18 141/85 (103) 95 08/12/17 16:12 98.8 98 18 140/101 (114) 93 (Apolinar Argueta) Physical Examination GENERAL: Awake in bed. Affect flat but readily interacts. No apparent distress. SKIN: No rashes, ecchymoses or lesions. Cool and dry. Surgical incisions to the left lateral abdominal wall/flank w/intact dressings. HEENT: Normocephalic, atraumatic. RESPIRATORY: CTAB w/o W/R/R, equal excursion, nonlaboured, on RA. CARDIOVASCULAR: S1S2 w/RRR w/o M/G/R. Monitor is sinus rhythm w/o any ectopy noted. GASTROINTESTINAL: Abdomen soft, positive bowel sounds. TTP to the left lateral abdominal wall/flank at the surgical incisions, dressings intact, ALY drains x2 w /serosanguinous drainage to bulb suction. MUSCULOSKELETAL: HUANG spontaneously & purposefully. No evident clubbing or deformity. Thoracolumbar spine NTTP. NEUROLOGICAL: AAOx3. Speech clear & appropriate. Follows commands w/o difficulty. Sensation intact to light touch to the lower extremities. Muscle strength is 5/5 to the lower extremities (Apolinar Argueta) Lab, Micro, Other Results Recent Impressions Chest X-Ray 08/15/17 0000 Signed Impressions: Service Date/Time: Tuesday, August 15, 2017 11:34 - CONCLUSION: Mild compensated cardiomegaly Roly Reina MD FACR Laboratory Tests Test 08/14/17 06:41 08/14/17 11:03 08/14/17 21:32 08/15/17 05:35 White Blood Count 5.8 TH/MM3 7.7 TH/MM3 Red Blood Count 3.19 MIL/MM3 3.01 MIL/MM3 Hemoglobin 9.0 GM/DL 8.5 GM/DL Hematocrit 27.6 % 25.8 % Mean Corpuscular Volume 86.3 FL 85.7 FL Mean Corpuscular Hemoglobin 28.3 PG 28.1 PG Mean Corpuscular Hemoglobin Concent 32.8 % 32.8 % Red Cell Distribution Width 15.4 % 15.0 % Platelet Count 179 TH/MM3 209 TH/MM3 Mean Platelet Volume 7.5 FL 7.6 FL Neutrophils (%) (Auto) 65.9 % 82.3 % Lymphocytes (%) (Auto) 14.6 % 6.2 % Monocytes (%) (Auto) 12.5 % 7.8 % Eosinophils (%) (Auto) 5.9 % 3.1 % Basophils (%) (Auto) 1.1 % 0.6 % Neutrophils # (Auto) 3.8 TH/MM3 6.4 TH/MM3 Lymphocytes # (Auto) 0.8 TH/MM3 0.5 TH/MM3 Monocytes # (Auto) 0.7 TH/MM3 0.6 TH/MM3 Eosinophils # (Auto) 0.3 TH/MM3 0.2 TH/MM3 Basophils # (Auto) 0.1 TH/MM3 0.0 TH/MM3 CBC Comment DIFF FINAL DIFF FINAL Differential Comment Prothrombin Time 12.3 SEC Prothromb Time International Ratio 1.2 RATIO Activated Partial Thromboplast Time 29.8 SEC Blood Urea Nitrogen 17 MG/DL 17 MG/DL Creatinine 1.50 MG/DL 1.42 MG/DL Random Glucose 63 MG/DL 69 MG/DL Calcium Level 8.5 MG/DL 8.2 MG/DL Sodium Level 136 MEQ/L 136 MEQ/L Potassium Level 4.4 MEQ/L 4.7 MEQ/L Chloride Level 102 MEQ/L 104 MEQ/L Carbon Dioxide Level 24.9 MEQ/L 23.2 MEQ/L Anion Gap 9 MEQ/L 9 MEQ/L Estimat Glomerular Filtration Rate 59 ML/MIN 63 ML/MIN Nasal Screen MRSA (PCR) MRSA NOT DETECTED (Apolinar Argueta) Medical Decision Making Impression and Plan Impression: 1, 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 History of chronic low back pain. 3. L4-5 moderate spinal stenosis w/grade 1 spondylolisthesis 4. Prevertebral/retroperitoneal abscess 5. Possible L5 anterior osteomyelitis w/elevated sed rate and white count Postoperative Diagnosis: (1) Osteomyelitis (Neurosurgery) Lumbar discitis, osteomyelitis (Neurosurgery) Lumbar retroperitoneal-bilateral psoas abscess (Neurosurgery) Psoas abscess, paraspinal abscesses, sepsis. (General Surgery) The patient is doing well post-operatively. No sensorimotor deficits noted upon evaluation. Pain controlled. T max 101.3 the past 24 hrs. Tachycardia this morning. ALY drain output since surgery as of shift change this morning: #1 - 68 mL; #2 - 70 mL. Reviewed labs for this morning. Drop in haemoglobin level. Improvement in eGFR. Abscess culture () w/rare RBCs and no organisms seen on final Gram stain , culture pending. MRI lumbar spine demonstrated increasing soft tissue signal to the back muscle from L1-L5. Increased marrow edema at L5 and to a lesser degree at L4. Increased disc space signal. Large bilateral psoas abscesses extending from L2 on the left into the iliopsoas and L3 on the right to the pelvis. Represents substantial progression. No significant epidural component. POD #1 () s/p: Lateral oblique approach for drainage of lumbar retroperitoneal and bilateral psoas muscle abscess (Neurosurgery) Retroperitoneal approach to the psoas muscle and drainage of psoas abscess and paraspinal abscess drainage. (General Surgery - Alyson Sanchez MD) Plan: Discussed the plan of care with the patient who verbalised his understanding and his questions were answered. Primary management per Hospitalist. Antibiotics per Infectious Disease. Mobilise patient w/assistance. Patient may transfer to a regular med/surg floor from Neurosurgery's perspective. (Apolinar Argueta) Attending Statement The exam, history, and the medical decision-making described in the above note were completed with the assistance of the mid-level provider. I reviewed and agree with the findings presented. I attest that I had a [id number] encounter with the patient on the same day, and personally performed and documented my assessment and findings in the medical record. Patient's exam stable postoperative. Drains remain in place (Guero Felipe MD) Apolinar Argueta August 15, 2017 14:49 Guero Felipe MD August 16, 2017 21:17
[2017-08-15] MEDS: oxyCODONE/ACETAMINOPHEN 5 MG/325 MG TAB PO PRN (16:41)
--- NOTE | 2017-08-15 22:16 | EKG ---
Date Performed: 08/15/2017 Time Performed: 07:35:00 PTAGE: 57 years EKG: Sinus tachycardia. Left bundle branch block Abnormal ECG NO PREVIOUS TRACING DOCTOR: Yariel Rodriguez Interpretating Date/Time 08/15/2017 22:15:23
[2017-08-16] VITALS: BP 119/74; PULSE 86; RESP 18; TEMP 98; O2SAT 93
[2017-08-16] MEDS: CYCLOBENZAPRINE HCL 10 MG TAB PO PRN ×2 (02:13→22:26)
[2017-08-16] MEDS: oxyCODONE/ACETAMINOPHEN 5 MG/325 MG TAB PO PRN ×4 (02:14→22:26)
[2017-08-16] MEDS: cefTRIAXone INJ 2,000 MG in SODIUM CHLORIDE 0.9% INJ 100 ML IV SCH ×2 (04:45→16:29)
[2017-08-16] MEDS: SODIUM CHLOR 0.9% 1000 ML INJ 1,000 ML IV SCH (04:46)
[2017-08-16] MEDS: SODIUM CHLORIDE 0.9% FLUSH 10 ML FLUSH IV FLUSH SCH ×2 (07:37→19:16)
[2017-08-16 08:00] VITALS: BP 119/81; PULSE 97; RESP 18; TEMP 98.6; O2SAT 92
[2017-08-16] MEDS: FAMOTIDINE 20 MG TAB PO SCH ×2 (08:09→19:17)
[2017-08-16] MEDS: LACTIC ACID (AMMONIUM LACTATE) 12% LOTION 225 GM BTL TOPICAL SCH ×2 (08:09→19:17)
[2017-08-16] MEDS: cloNIDine HCL 0.1 MG TAB PO SCH (08:09)
[2017-08-16] MEDS: DOCUSATE SODIUM 50 MG/SENNA 8.6 MG TAB PO SCH ×2 (08:09→19:17)
--- NOTE | 2017-08-16 08:39 | HHI.IDPN ---
Subjective Subjective Remarks Patient seen and examined on behalf of Dr. Goldstein Mr. Gee is a 57-year-old -Japanese male with past medical history significant for rheumatoid arthritis on prednisone. From infectious disease standpoint his past medical history significant for prior history of strep epidural abscess as well as bacteremia treated with IV antibiotics and also needing L4 partial laminectomy in 2013 as well as an abscess on the skin of his back.. His past medical history is also significant for chronic kidney disease stage III, chronic back pain, cocaine abuse and tobacco abuse who presented to the emergency department with complaints of severe back pain. Patient is an extremely poor historian and reports that he has had a prior visit to the emergency room on July 23, 2017 with similar symptoms. An MRI of the L-spine did not show any evidence of infection patient was asked to follow-up with Dr. Pineda whom he has seen in the past. On arrival, BP 125/71, HR 86, O2 sat 100% RA, Afebrile. WBC 20.8. Na 128. K+ 5.5. Creatinine 2.84, previously 2.97 on 07/23/2017. INR 1.1. UA negative for UTI. 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 S/p Vanc/ Rocephin in ER. At the time of my evaluation patient is on a regular floor. Appears to be comfortable not in significant pain involving his extremities. Patient reports tingling numbness and extreme pain in his bilateral lower extremities right more than left. Patient denies any bowel bladder incontinence. Denies any decrease in perineal sensation. Infectious diseases consulted for evaluation and management of discitis and epidural abscess. Notes reviewed DW nursing staff - no issues overnight. Operative notes reviewed - removed 250ml yellowish purulent material obtained more awake and alert pain controlled Tmax 101.3 yesterday ?postop fever, patient denies any fever or chills overnight no rash no N/V no diarrhea - No BM yet since surgery, he is not passing flatus Afebrile currently WBC WNL MRI repeat showing progression of infection, and dev of lenin psoas abscess LP results noted, WBC only 5, but with low glucose and elevated protein 07/29 BCX + strep anginosus/milleri. Repeat BCX 5/3 with no growth x 5 days Intraop cx neg thus far Antibiotics IV Ceftriaxone q 12 Lines Line sites with no e.o infection. Past Medical History reviewed. (Jeni Reed) Allergies: Coded Allergies: *MDRO Multi-Drug Resistant Organism (Verified Adverse Reaction, Unknown, ) MRSA (leg wound) - 10/2006 MRSA PCR screen positive - 10/2014 Objective . Vital Signs Date Time Temp Pulse Resp B/P (MAP) Pulse Ox O2 Delivery O2 Flow Rate FiO2 08/16/17 03:14 17 08/16/17 00:00 98.0 86 18 119/74 (89) 93 08/15/17 20:00 98.9 91 18 110/73 (85) 91 08/15/17 16:00 99.1 97 18 133/87 (102) 92 08/15/17 12:00 100.2 97 16 105/72 (83) 96 . Laboratory Tests Test 08/15/17 05:35 White Blood Count 7.7 TH/MM3 Red Blood Count 3.01 MIL/MM3 Hemoglobin 8.5 GM/DL Hematocrit 25.8 % Mean Corpuscular Volume 85.7 FL Mean Corpuscular Hemoglobin 28.1 PG Mean Corpuscular Hemoglobin Concent 32.8 % Red Cell Distribution Width 15.0 % Platelet Count 209 TH/MM3 Mean Platelet Volume 7.6 FL Neutrophils (%) (Auto) 82.3 % Lymphocytes (%) (Auto) 6.2 % Monocytes (%) (Auto) 7.8 % Eosinophils (%) (Auto) 3.1 % Basophils (%) (Auto) 0.6 % Neutrophils # (Auto) 6.4 TH/MM3 Lymphocytes # (Auto) 0.5 TH/MM3 Monocytes # (Auto) 0.6 TH/MM3 Eosinophils # (Auto) 0.2 TH/MM3 Basophils # (Auto) 0.0 TH/MM3 CBC Comment DIFF FINAL Differential Comment Laboratory Tests Test 08/14/17 11:03 08/15/17 05:35 Blood Urea Nitrogen 17 MG/DL 17 MG/DL Creatinine 1.50 MG/DL 1.42 MG/DL Random Glucose 63 MG/DL 69 MG/DL Calcium Level 8.5 MG/DL 8.2 MG/DL Sodium Level 136 MEQ/L 136 MEQ/L Potassium Level 4.4 MEQ/L 4.7 MEQ/L Chloride Level 102 MEQ/L 104 MEQ/L Carbon Dioxide Level 24.9 MEQ/L 23.2 MEQ/L Anion Gap 9 MEQ/L 9 MEQ/L Estimat Glomerular Filtration Rate 59 ML/MIN 63 ML/MIN Microbiology Date/Time Source Procedure Growth Status 08/14/17 18:20 Abscess Other Fungal Smear - Final NO FUNGAL ELEMENTS SEEN. Resulted 08/14/17 18:20 Abscess Other Fungal Culture Pending Resulted 08/14/17 18:20 Abscess Other Acid Fast Stain Pending Received 08/14/17 18:20 Abscess Other Mycobacterial Culture Pending Received 08/14/17 18:20 Abscess Other Gram Stain - Final Resulted 08/14/17 18:20 Abscess Other Wound Culture - Preliminary NO GROWTH IN 24 HOURS. Resulted Imaging Last Impressions Chest X-Ray 08/15/17 0000 Signed Impressions: Service Date/Time: Tuesday, August 15, 2017 11:34 - CONCLUSION: Mild compensated cardiomegaly Roly Reina MD FACR Lumbar Spine MRI 08/08/17 0000 Signed Impressions: Service Date/Time: Tuesday, August 08, 2017 13:37 - CONCLUSION: Substantial progression as described above. Roly Reina MD FACR Lumbar Puncture Fluoroscopy 08/08/17 0000 Signed Impressions: Service Date/Time: Tuesday, August 08, 2017 15:42 - CONCLUSION: Uncomplicated fluoroscopically guided lumbar puncture. Fady Chan MD Needle Biopsy/Aspiration X-Ray 07/31/17 0000 Signed Impressions: Service Date/Time: Monday, July 31, 2017 13:29 - CONCLUSION: Uncomplicated needle biopsy of the L4/L5 disc space as above. Candelario Reina MD Abdomen/Pelvis CT 07/29/17 0000 Signed Impressions: Service Date/Time: Saturday, July 29, 2017 22:14 - CONCLUSION: 1. Significant new prevertebral soft tissue fullness and stranding centered at the L5 level. There is associated sclerosis and erosive changes in the anterior L5 vertebral body which appear unchanged from recent exams. Overall, findings are concerning for discitis and osteomyelitis. Consider repeat MRI examination for further evaluation. 2. 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 However, evaluation is significantly limited due to lack of IV contrast on this exam. This was not present on remote prior CT exam. A mycotic aneurysm cannot be entirely excluded. Contrast enhanced examination would be greatly beneficial in further evaluation. 3. Nodular appearing liver contour consistent with cirrhosis. 4. IVC filter in place. 5. Cholelithiasis. Tanner Jones MD Physical Exam GENERAL: Well developed well nourished male patient, INAD. Awake and alert. Appears comfortable. SKIN: Warm and dry. No obvious rash. HEAD: Atraumatic. Normocephalic. EYES: EOMI. No scleral icterus. No injection or drainage. ENT: No gross bleeding. Dry mucus membranes. NECK: Trachea midline. Moves neck in all directions. No rigidity noted. CARDIOVASCULAR: Regular rate and rhythm. RESPIRATORY: Nonlabored. Diminished. Clear to auscultation anteriorly. GASTROINTESTINAL: Soft, postop with surgical incision over left side of abdomen with dry and intact dressing, ALY drain x 2 with sanguineous drainage noted GENITOURINARY: Mcdonald in place with albino colored urine in bag. MUSCULOSKELETAL: No pedal edema NEUROLOGICAL: Awake and alert. Moves all extremities spontaneously. Normal speech. PSYCHIATRIC: Calm and cooperative. IV line sites with no e.o infection (Jeni Reed) Assessment & Plan Remarks Strep bacteremia, probable endocarditis Probable meningitis based on glucose and total protein (partially treated by the time LP done) Epidural abscess Discitis. - progression of infection on MRI repeat Bilateral psoas fluid collection s/p I&D 08/14 with 250ml yellowish purulent material removed. Fever yesterday morning, suspect postop fever. 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 Immune compromised host. 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 I reviewed and agree with the findings presented. I attest that I had a [id number] encounter with the patient on the same day, and personally performed and documented my assessment and findings in the medical record. More alert. 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 Continue Ceftriaxone 2 gm IV q12hrs Follow cultures follow clinically Await clearance by Surgeons. 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 Recommend placement to complete IV antibiotics. Will need 8-10 weeks IV depending on clinical course. No PICC till cleared by ID (Latricia Goldstein MD) Jeni Reed August 16, 2017 08:39 Latricia Goldstein MD August 16, 2017 19:28
--- NOTE | 2017-08-16 10:16 | HHI.PR ---
Subjective Remarks Follow up osteomyelitis, bacteremia. Patient has no complaints at this time. Pain is well controlled. Denies chest pain, dyspnea, nausea, vomiting. No events reported by nursing. Objective Vitals Vital Signs Date Time Temp Pulse Resp B/P (MAP) Pulse Ox O2 Delivery O2 Flow Rate FiO2 08/16/17 08:00 98.6 97 18 119/81 (94) 92 08/16/17 03:14 17 08/16/17 00:00 98.0 86 18 119/74 (89) 93 08/15/17 20:00 98.9 91 18 110/73 (85) 91 08/15/17 16:00 99.1 97 18 133/87 (102) 92 08/15/17 12:00 100.2 97 16 105/72 (83) 96 I/O 08/15/17 08/15/17 08/15/17 08/16/17 08/16/17 08/16/17 07:00 15:00 23:00 07:00 15:00 23:00 Intake Total 1100 ml 240 ml 100 ml 1340 ml Output Total 1103 ml 345 ml 20 ml 1250 ml Balance -3 ml -105 ml 80 ml 90 ml Intake Oral 240 ml 240 ml IV Total 1100 ml 100 ml 1100 ml Output Urine Total 1025 ml 300 ml 1200 ml Drainage Total 78 ml 45 ml 20 ml 50 ml # Bowel Movements 0 0 Result Diagram: 08/15/17 0535 08/15/17 0535 Imaging Last Impressions Chest X-Ray 08/15/17 0000 Signed Impressions: Service Date/Time: Tuesday, August 15, 2017 11:34 - CONCLUSION: Mild compensated cardiomegaly Roly Reina MD FACR Lumbar Spine MRI 08/08/17 0000 Signed Impressions: Service Date/Time: Tuesday, August 08, 2017 13:37 - CONCLUSION: Substantial progression as described above. Roly Reina MD FACR Lumbar Puncture Fluoroscopy 08/08/17 0000 Signed Impressions: Service Date/Time: Tuesday, August 08, 2017 15:42 - CONCLUSION: Uncomplicated fluoroscopically guided lumbar puncture. Fady Chan MD Needle Biopsy/Aspiration X-Ray 07/31/17 0000 Signed Impressions: Service Date/Time: Monday, July 31, 2017 13:29 - CONCLUSION: Uncomplicated needle biopsy of the L4/L5 disc space as above. Candelario Reina MD Abdomen/Pelvis CT 07/29/17 0000 Signed Impressions: Service Date/Time: Saturday, July 29, 2017 22:14 - CONCLUSION: 1. Significant new prevertebral soft tissue fullness and stranding centered at the L5 level. There is associated sclerosis and erosive changes in the anterior L5 vertebral body which appear unchanged from recent exams. Overall, findings are concerning for discitis and osteomyelitis. Consider repeat MRI examination for further evaluation. 2. 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 However, evaluation is significantly limited due to lack of IV contrast on this exam. This was not present on remote prior CT exam. A mycotic aneurysm cannot be entirely excluded. Contrast enhanced examination would be greatly beneficial in further evaluation. 3. Nodular appearing liver contour consistent with cirrhosis. 4. IVC filter in place. 5. Cholelithiasis. Tanner Jones MD Objective Remarks General: No acute distress. Heart: Regular rate and rhythm. No murmur. Lungs: Clear to auscultation bilaterally. No wheezes, rales, or rhonchi. Breathing is nonlabored. Abdomen: Soft, nontender, nondistended. Extremities: No lower extremity edema. Psych: Alert, answers questions appropriately. Neuro: No focal deficits noted. 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 Osteomyelitis of the L5 vertebra, bilateral psoas muscle abscess: Status post CT-guided removal of fluid for culture as well as disc biopsy on 07/31/17. Appreciate neurosurgery, vascular surgery, infectious disease recommendations. Status post drainage of abscess on 08/14/17. Cultures are pending. Continue antibiotics. 2. Bacteremia with Strep Anginousis: Continue antibiotics per infectious disease. 3. Altered mental status: Resolved. Likely secondary to drug abuse. Lumbar puncture. Evaluated by psychiatry, patient is capable of making decisions. 4. Cocaine abuse: Urine toxicology positive for cocaine. 5. Right iliac artery aneurysm: Patient noted to have a 2.9 cm aneurysm of the right internal iliac artery, possibly mycotic aneurysm. This was an incidental finding. He denies IV drug abuse. Appreciate vascular surgery recommendations. No surgery planned at this time. 6. Hyponatremia: Resolved. 7. Chronic kidney disease stage II with acute kidney injury: Improving. 8. Hyperkalemia: Resolved. 9. Anemia of chronic disease: H&H stable. 10. DVT prophylaxis: SCDs. Discharge Planning When cleared by neurosurgery, infectious disease. Will likely need home health care. Tacho Lombardo MD August 16, 2017 10:16
[2017-08-16 12:00] VITALS: BP_SYST 103; BP_SYST 135; BP_DIAS 69; BP_DIAS 83; PULSE 70; PULSE 88; RESP 17; TEMP 97.2; TEMP 99; O2SAT 91; O2SAT 98
[2017-08-16 16:00] VITALS: BP 135/83; PULSE 97; RESP 17; TEMP 98.7; O2SAT 92
--- NOTE | 2017-08-16 18:28 | PD.CAR.PN ---
CVT Progress Note Subjective/Hospital Course: Referral received Studies reviewed Full consult to follow Oanh Craig 08/10/2017 Patient with retroperitoneal infection involving the vertebra and paraspinal muscles and psoas muscles extending toward the pelvis, with multiple abscesses throughout I have discussed the care with Dr. Felipe, Dr. Toney and the patient At this point the most preferred way to access this would be through a left preperitoneal approach in the same fashion we access abdominal aorta for preperitoneal lateral aneurysmorrhaphy. This incision would give quite plenty of space and access to drain all this. While technically this is a quite advantageous approach, I have to stress that ability to completely eliminate the infection and cure the patient permanently is very limited. The procedure is mainly meant to contain the infection clean everything up and minimize the sequela of the same If patient agrees with surgery has to be cleared that this is not most likely going to cure him but will definitely slow the infection down set it back and make it controllable. In addition the surgery itself carries obviously inherent risks of prolonged morbidity and mortality ranging in about 5-10% range The other option is not to do anything and make patient comfortable with palliative care but this will definitely leave the patient's demise I will be happy to discuss this with other family members this patient may desire and I will definitely be available for the surgery any time 08/13/2017 Patient with extensive retroperitoneal infections due to osteomyelitis now spread to the soft tissues including both psoas muscles I have discussed this with patient at length and tried to explain that the surgery will likely not be curative but will only temporize the infection and completely clearing it is almost impossible I also explained to the patient that this approach and surgery of course carries significant risk of morbidity and mortality in the further details of the surgery have to be discussed with neurosurgery I discussed this today with Dr. Felipe and patient would like to proceed with surgery so I will provide preperitoneal/retroperitoneal approach for further neurosurgical intervention 08/15/2017 Patient underwent yesterday left retroperitoneal exposure of the psoas muscles with drainage of large abscesses with about 250 cc of purulent material drained This morning patient is awake alert oriented Abdomen soft active bowel sounds and incision is clean and dry with dressing intact ALY drainage serosanguineous Patient has had several spikes of fever to 101.4 and considering that we mobilized all the purulent material from the back this is not uncommon and patient will have periods of bacteremia Currently on appropriate antibiotics and cultures from the surgery pending Plan Advance to diet Out of bed Transfer to floor 08/16/17 Incision dry ALY drainage down Abdomen soft Doing well Objective: Vital Signs Date Time Temp Pulse Resp B/P (MAP) Pulse Ox O2 Delivery O2 Flow Rate FiO2 08/16/17 16:00 98.7 97 17 135/83 (100) 92 08/16/17 12:00 99.0 88 17 103/69 (80) 91 08/16/17 08:00 98.6 97 18 119/81 (94) 92 08/16/17 03:14 17 08/16/17 00:00 98.0 86 18 119/74 (89) 93 08/15/17 20:00 98.9 91 18 110/73 (85) 91 Result Diagram: 08/15/17 0535 08/15/17 0535 Felicia Sanchez MD August 16, 2017 18:28
[2017-08-16 20:00] VITALS: BP 103/58; PULSE 87; RESP 17; TEMP 97.7; O2SAT 96
--- NOTE | 2017-08-16 21:21 | HHI.NSPN ---
History Chief Complaint: Surgical incision pain Interval History 07/30: 57-year-old gentleman with a history of lumbar osteomyelitis and discitis with abscess who underwent L4-[address] Felipe from neurosurgery. He has a chronic history of low back pain and more recent MRI scan shows degenerative L4-5 stenosis with facet hypertrophy and grade 1 spondylolisthesis along with some possible L5 anterior vertebral body osteomyelitis with the prevertebral retroperitoneal abscess. Patient was scheduled to follow-up with Dr. Felipe but returned to the emergency room for persistent back pain. Currently he is very sedated but does awaken and relates that his pain is controlled. He has been ambulating with a cane on a chronic basis. No bowel bladder incontinence or any lower extremity weakness noted. Dr. Gamez from neurosurgery coverage over the weekend was consulted and deferred further management to Dr. Felipe who is currently out of town. 08/06: When seen this morning the patient is asleep in bed. He does awaken to voice but is drowsy after that. He complains of pain to the lower back that does radiate down both lower extremities to the knees. He denies any numbness or tingling to the lower extremities. He does have low lumbar tenderness to palpation. He did not have any apparent lower extremity sensory deficits. His motor strength exam was incomplete due to patient not fully participating due to pain and drowsiness. 08/08/2017: Relatively awake and alert. Status post lumbar puncture Exam Results Vital Signs Date Time Temp Pulse Resp B/P (MAP) Pulse Ox O2 Delivery O2 Flow Rate FiO2 08/16/17 20:00 97.7 87 17 103/58 (73) 96 08/15/17 08:28 21 08/14/17 23:22 Nasal Cannula 3.00 Intake and Output 08/16/17 08/16/17 08/17/17 08:00 16:00 00:00 Intake Total 1340 ml 1440 ml Output Total 1250 ml 1275 ml Balance 90 ml 165 ml Physical Examination GENERAL: Awake in bed. Affect flat but readily interacts. No apparent distress. SKIN: No rashes, ecchymoses or lesions. Cool and dry. Surgical incisions to the left lateral abdominal wall/flank w/intact dressings. HEENT: Normocephalic, atraumatic. RESPIRATORY: CTAB w/o W/R/R, equal excursion, nonlaboured, on RA. CARDIOVASCULAR: S1S2 w/RRR w/o M/G/R. Monitor is sinus rhythm w/o any ectopy noted. GASTROINTESTINAL: Abdomen soft, positive bowel sounds. TTP to the left lateral abdominal wall/flank at the surgical incisions, dressings intact, ALY drains x2 w /serosanguinous drainage to bulb suction. MUSCULOSKELETAL: HUANG spontaneously & purposefully. No evident clubbing or deformity. Thoracolumbar spine NTTP. NEUROLOGICAL: AAOx3. Speech clear & appropriate. Follows commands w/o difficulty. Sensation intact to light touch to the lower extremities. Muscle strength is 5/5 to the lower extremities Medical Decision Making Impression and Plan Impression: 1. L4-5 discitis with bilateral psoas abscess. Stable neurologic exam following retroperitoneal approach for drainage of abscess Plan: Mobilize out of bed as tolerated Advance diet per general surgery Continue therapy Infectious disease following Cultures noted Guero Felipe MD August 16, 2017 21:20
[2017-08-17] VITALS: BP 129/82; PULSE 94; RESP 16; TEMP 98.8; O2SAT 94
[2017-08-17] MEDS: HYDROmorphone HCL PF 0.5 MG/0.5 ML SYRINGE IV PUSH PRN ×2 (00:24→07:46)
[2017-08-17] MEDS: cefTRIAXone INJ 2,000 MG in SODIUM CHLORIDE 0.9% INJ 100 ML IV SCH ×2 (04:26→17:03)
[2017-08-17] MEDS: oxyCODONE/ACETAMINOPHEN 5 MG/325 MG TAB PO PRN ×3 (05:29→20:42)
[2017-08-17 06:12] LABS: AUTOMATED NEUTROPHIL # 4.2 TH/MM3 (1.8-7.7); BASOPHIL # 0.1 TH/MM3 (0-0.2); BASOPHIL % 0.9 % (0.0-2.0); EOSINOPHIL # 0.4 TH/MM3 (0-0.4); EOSINOPHIL % 5.6 % (0.0-4.0); HEMATOCRIT 23.4 % (39.0-51.0); HEMOGLOBIN 7.7 GM/DL (13.0-17.0); LYMPH % 13.9 % (9.0-44.0); LYMPHOCYTE # 0.9 TH/MM3 (1.0-4.8); MEAN CORPUSCULAR HEMOGLOBIN 28.4 PG (27.0-34.0); MEAN CORPUSCULAR HGB CONC 32.7 % (32.0-36.0); MEAN PLATELET VOLUME 7.4 FL (7.0-11.0); MONO % 13.4 % (0.0-8.0); MONOCYTE # 0.8 TH/MM3 (0-0.9); NEUT % 66.2 % (16.0-70.0); PLATELET COUNT 185 TH/MM3 (150-450); RED BLOOD COUNT 2.69 MIL/MM3 (4.50-5.90); WHITE BLOOD COUNT 6.3 TH/MM3 (4.0-11.0)
[2017-08-17 06:33] LABS: BICARBONATE 24.6 MEQ/L (21.0-32.0); CALCIUM 7.9 MG/DL (8.5-10.1); CREATININE 1.68 MG/DL (0.60-1.30)
[2017-08-17] MEDS: SODIUM CHLORIDE 0.9% FLUSH 10 ML FLUSH IV FLUSH SCH ×2 (07:38→20:43)
[2017-08-17] MEDS: cloNIDine HCL 0.1 MG TAB PO SCH (07:45)
[2017-08-17] MEDS: FAMOTIDINE 20 MG TAB PO SCH ×2 (07:45→20:42)
[2017-08-17] MEDS: DOCUSATE SODIUM 50 MG/SENNA 8.6 MG TAB PO SCH ×2 (07:45→20:42)
[2017-08-17 08:00] VITALS: BP 127/83; PULSE 94; RESP 18; TEMP 98.9; O2SAT 93
--- NOTE | 2017-08-17 08:26 | HHI.IDPN ---
Subjective Subjective Remarks Patient seen and examined on behalf of Dr. Goldstein Mr. Gee is a 57-year-old -[place] male with past medical history significant for rheumatoid arthritis on prednisone. From infectious disease standpoint his past medical history significant for prior history of strep epidural abscess as well as bacteremia treated with IV antibiotics and also needing L4 partial laminectomy in 2013 as well as an abscess on the skin of his back.. His past medical history is also significant for chronic kidney disease stage III, chronic back pain, cocaine abuse and tobacco abuse who presented to the emergency department with complaints of severe back pain. Patient is an extremely poor historian and reports that he has had a prior visit to the emergency room on July 23, 2017 with similar symptoms. An MRI of the L-spine did not show any evidence of infection patient was asked to follow-up with Dr. Pineda whom he has seen in the past. On arrival, BP 125/71, HR 86, O2 sat 100% RA, Afebrile. WBC 20.8. Na 128. K+ 5.5. Creatinine 2.84, previously 2.97 on 07/23/2017. INR 1.1. UA negative for UTI. 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 S/p Vanc/ Rocephin in ER. At the time of my evaluation patient is on a regular floor. Appears to be comfortable not in significant pain involving his extremities. Patient reports tingling numbness and extreme pain in his bilateral lower extremities right more than left. Patient denies any bowel bladder incontinence. Denies any decrease in perineal sensation. Infectious diseases consulted for evaluation and management of discitis and epidural abscess. Notes reviewed [facility] nursing staff - did not sleep well last night due to left sided low back pain. Patient states better this am. Operative notes reviewed - removed 250ml yellowish purulent material obtained pain controlled no fever or chills no rash no N/V no diarrhea - No BM yet since surgery but reports passing flatus Afebrile WBC WNL MRI repeat showing progression of infection, and dev of lenin psoas abscess LP results noted, WBC only 5, but with low glucose and elevated protein 07/29 BCX + strep anginosus/milleri. Repeat BCX 08/02 with no growth x 5 days Intraop cx remain neg thus far Antibiotics IV Ceftriaxone q 12 Lines Line sites with no e.o infection. Past Medical History reviewed. (Jeni Reed) Allergies: Coded Allergies: *MDRO Multi-Drug Resistant Organism (Verified Adverse Reaction, Unknown, ) MRSA (leg wound) - 10/2006 MRSA PCR screen positive - 10/2014 Objective . Vital Signs Date Time Temp Pulse Resp B/P (MAP) Pulse Ox O2 Delivery O2 Flow Rate FiO2 08/17/17 00:54 18 08/17/17 00:00 98.8 94 16 129/82 (98) 94 08/16/17 23:26 17 08/16/17 20:00 97.7 87 17 103/58 (73) 96 08/16/17 16:00 98.7 97 17 135/83 (100) 92 08/16/17 12:00 99.0 88 17 103/69 (80) 91 . Laboratory Tests Test 08/17/17 04:02 White Blood Count 6.3 TH/MM3 Red Blood Count 2.69 MIL/MM3 Hemoglobin 7.7 GM/DL Hematocrit 23.4 % Mean Corpuscular Volume 87.0 FL Mean Corpuscular Hemoglobin 28.4 PG Mean Corpuscular Hemoglobin Concent 32.7 % Red Cell Distribution Width 15.0 % Platelet Count 185 TH/MM3 Mean Platelet Volume 7.4 FL Neutrophils (%) (Auto) 66.2 % Lymphocytes (%) (Auto) 13.9 % Monocytes (%) (Auto) 13.4 % Eosinophils (%) (Auto) 5.6 % Basophils (%) (Auto) 0.9 % Neutrophils # (Auto) 4.2 TH/MM3 Lymphocytes # (Auto) 0.9 TH/MM3 Monocytes # (Auto) 0.8 TH/MM3 Eosinophils # (Auto) 0.4 TH/MM3 Basophils # (Auto) 0.1 TH/MM3 CBC Comment DIFF FINAL Differential Comment Laboratory Tests Test 08/17/17 04:02 Blood Urea Nitrogen 20 MG/DL Creatinine 1.68 MG/DL Random Glucose 85 MG/DL Calcium Level 7.9 MG/DL Sodium Level 138 MEQ/L Potassium Level 4.3 MEQ/L Chloride Level 105 MEQ/L Carbon Dioxide Level 24.6 MEQ/L Anion Gap 8 MEQ/L Estimat Glomerular Filtration Rate 52 ML/MIN Microbiology Date/Time Source Procedure Growth Status 08/14/17 18:20 Abscess Other Fungal Smear - Final NO FUNGAL ELEMENTS SEEN. Resulted 08/14/17 18:20 Abscess Other Fungal Culture Pending Resulted 08/14/17 18:20 Abscess Other Acid Fast Stain - Final NO ACID FAST BACILLI SEEN Resulted 08/14/17 18:20 Abscess Other Mycobacterial Culture Pending Resulted 08/14/17 18:20 Abscess Other Gram Stain - Final Complete 08/14/17 18:20 Abscess Other Wound Culture - Final NO GROWTH IN 72 HRS.--AEROBICALLY OR ... Complete Imaging Last Impressions Chest X-Ray 08/15/17 0000 Signed Impressions: Service Date/Time: Tuesday, August 15, 2017 11:34 - CONCLUSION: Mild compensated cardiomegaly Roly Reina MD FACR Lumbar Spine MRI 08/08/17 0000 Signed Impressions: Service Date/Time: Tuesday, August 08, 2017 13:37 - CONCLUSION: Substantial progression as described above. Roly Reina MD FACR Lumbar Puncture Fluoroscopy 08/08/17 0000 Signed Impressions: Service Date/Time: Tuesday, August 08, 2017 15:42 - CONCLUSION: Uncomplicated fluoroscopically guided lumbar puncture. Fady Chan MD Needle Biopsy/Aspiration X-Ray 07/31/17 0000 Signed Impressions: Service Date/Time: Monday, July 31, 2017 13:29 - CONCLUSION: Uncomplicated needle biopsy of the L4/L5 disc space as above. Candelario Reina MD Abdomen/Pelvis CT 07/29/17 0000 Signed Impressions: Service Date/Time: Saturday, July 29, 2017 22:14 - CONCLUSION: 1. Significant new prevertebral soft tissue fullness and stranding centered at the L5 level. There is associated sclerosis and erosive changes in the anterior L5 vertebral body which appear unchanged from recent exams. Overall, findings are concerning for discitis and osteomyelitis. Consider repeat MRI examination for further evaluation. 2. 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 However, evaluation is significantly limited due to lack of IV contrast on this exam. This was not present on remote prior CT exam. A mycotic aneurysm cannot be entirely excluded. Contrast enhanced examination would be greatly beneficial in further evaluation. 3. Nodular appearing liver contour consistent with cirrhosis. 4. IVC filter in place. 5. Cholelithiasis. Tanner Jones MD Physical Exam GENERAL: Well developed well nourished male patient, INAD. Awake and alert. Lying in hospital bed. Appears comfortable. SKIN: Warm and dry. No obvious rash. BLE with extremely dry, scaly skin. HEAD: Atraumatic. Normocephalic. EYES: EOMI. No scleral icterus. No injection or drainage. ENT: No gross bleeding. Dry mucus membranes. NECK: Trachea midline. Moves neck in all directions. No rigidity noted. CARDIOVASCULAR: Regular rate and rhythm. RESPIRATORY: Nonlabored. Diminished. Clear to auscultation anteriorly. GASTROINTESTINAL: Soft, postop with surgical incision over left side of abdomen with dry and intact dressing, incision appears to be healing well, lamin intact, small amount of serosanguineous drainage noted over lower portion of dressing. ALY drain x 2 with sanguineous drainage noted, decreasing output per nursing staff. MUSCULOSKELETAL: No pedal edema NEUROLOGICAL: Awake and alert. Moves all extremities spontaneously. Normal speech. PSYCHIATRIC: Calm and cooperative. IV line sites with no e.o infection (Jeni Reed) Assessment & Plan Remarks Strep bacteremia, probable endocarditis Probable meningitis based on glucose and total protein (partially treated by the time LP done) Epidural abscess Discitis. - progression of infection on MRI repeat Bilateral psoas fluid collection s/p I&D 08/14 with 250ml yellowish purulent material removed. Fever postop, resolved. 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 Concern for IVDU. Patient unsafe for discharge to home and will need placement to complete IV abx therapy for another 8-10 weeks. Will justo REAL discharge plan [place] Hydrin BLE Follow clinically Further recommendations to follow (Jeni Reed) Remarks The exam, history, and the medical decision-making described in the above note were completed with the assistance of the mid-level provider. I reviewed and agree with the findings presented. I attest that I had a [id number] encounter with the patient on the same day, and personally performed and documented my assessment and findings in the medical record. Much more alert Exam Drains [address] sero sang discharge Recs Continue Ceftriaxone IV covering for me this weekend. (Latricia Goldstein MD) Jeni Reed August 17, 2017 08:26 Latricia Goldstein MD August 17, 2017 15:32
[2017-08-17] MEDS: LACTIC ACID (AMMONIUM LACTATE) 12% LOTION 225 GM BTL TOPICAL SCH ×4 (08:51→20:43)
[2017-08-17 12:00] VITALS: BP 135/79; PULSE 95; RESP 17; TEMP 98.6; O2SAT 94
--- NOTE | 2017-08-17 14:10 | HHI.PR ---
Subjective Remarks Follow up bacteremia, osteomyelitis. Patient has no complaints today. Pain controlled. No nausea/vomiting, chest pain, dyspnea, diarrhea, constipation. Objective Vitals Vital Signs Date Time Temp Pulse Resp B/P (MAP) Pulse Ox O2 Delivery O2 Flow Rate FiO2 08/17/17 08:00 98.9 94 18 127/83 (98) 93 08/17/17 00:54 18 08/17/17 00:00 98.8 94 16 129/82 (98) 94 08/16/17 23:26 17 08/16/17 20:00 97.7 87 17 103/58 (73) 96 08/16/17 16:00 98.7 97 17 135/83 (100) 92 I/O 08/16/17 08/16/17 08/16/17 08/17/17 08/17/17 08/17/17 06:59 14:59 22:59 06:59 14:59 22:59 Intake Total 1340 ml 1440 ml 955 ml Output Total 1250 ml 1275 ml 1195 ml Balance 90 ml 165 ml -240 ml Intake Oral 240 ml 720 ml 475 ml IV Total 1100 ml 720 ml 480 ml Output Urine Total 1200 ml 1200 ml 1125 ml Drainage Total 50 ml 75 ml 70 ml # Bowel Movements 0 Result Diagram: 08/17/17 0402 08/17/17 0402 Imaging Last Impressions Chest X-Ray 08/15/17 0000 Signed Impressions: Service Date/Time: Tuesday, August 15, 2017 11:34 - CONCLUSION: Mild compensated cardiomegaly Roly Reina MD FACR Lumbar Spine MRI 08/08/17 0000 Signed Impressions: Service Date/Time: Tuesday, August 08, 2017 13:37 - CONCLUSION: Substantial progression as described above. Roly Reina MD FACR Lumbar Puncture Fluoroscopy 08/08/17 0000 Signed Impressions: Service Date/Time: Tuesday, August 08, 2017 15:42 - CONCLUSION: Uncomplicated fluoroscopically guided lumbar puncture. Fady Chan MD Needle Biopsy/Aspiration X-Ray 07/31/17 0000 Signed Impressions: Service Date/Time: Monday, July 31, 2017 13:29 - CONCLUSION: Uncomplicated needle biopsy of the L4/L5 disc space as above. Candelario Reina MD Abdomen/Pelvis CT 07/29/17 0000 Signed Impressions: Service Date/Time: Saturday, July 29, 2017 22:14 - CONCLUSION: 1. Significant new prevertebral soft tissue fullness and stranding centered at the L5 level. There is associated sclerosis and erosive changes in the anterior L5 vertebral body which appear unchanged from recent exams. Overall, findings are concerning for discitis and osteomyelitis. Consider repeat MRI examination for further evaluation. 2. 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 However, evaluation is significantly limited due to lack of IV contrast on this exam. This was not present on remote prior CT exam. A mycotic aneurysm cannot be entirely excluded. Contrast enhanced examination would be greatly beneficial in further evaluation. 3. Nodular appearing liver contour consistent with cirrhosis. 4. IVC filter in place. 5. Cholelithiasis. Tanner Jones MD Objective Remarks General: No acute distress. Heart: Regular rate and rhythm. No murmur. Lungs: Clear to auscultation bilaterally. No wheezes, rales, or rhonchi. Breathing is nonlabored. Abdomen: Soft, nontender, nondistended. Extremities: No lower extremity edema. Psych: Alert, answers questions appropriately. Neuro: No focal deficits noted. 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 Osteomyelitis of the L5 vertebra, bilateral psoas muscle abscess: Status post CT-guided removal of fluid for culture as well as disc biopsy on 07/31/17. Appreciate neurosurgery, vascular surgery, infectious disease recommendations. Status post drainage of abscess on 08/14/17. Wound culture is negative. Mycobacterial and fungal cultures are pending. Continue antibiotics. 2. Bacteremia with Strep Anginosis: Continue antibiotics per infectious disease. 3. Altered mental status: Resolved. Likely secondary to drug abuse. Lumbar puncture. Evaluated by psychiatry, patient is capable of making decisions. 4. Cocaine abuse: Urine toxicology positive for cocaine. 5. Right iliac artery aneurysm: Patient noted to have a 2.9 cm aneurysm of the right internal iliac artery, possibly mycotic aneurysm. This was an incidental finding. He denies IV drug abuse. Appreciate vascular surgery recommendations. No surgery planned at this time. 6. Hyponatremia: Resolved. 7. Chronic kidney disease stage II with acute kidney injury: Creatinine trending up. Increase IV fluids. 8. Hyperkalemia: Resolved. 9. Anemia of chronic disease: H&H stable. 10. DVT prophylaxis: SCDs. Discharge Planning Pending further clinical improvement and clearance by neurosurgery, infectious disease. Will likely need home health care. Tacho Lombardo MD August 17, 2017 14:10
[2017-08-17] MEDS: SODIUM CHLOR 0.9% 1000 ML INJ 1,000 ML IV SCH ×2 (17:03)
[2017-08-17 17:08] VITALS: BP 104/69; PULSE 90; RESP 16; TEMP 98.4; O2SAT 93
--- NOTE | 2017-08-17 18:00 | HHI.NSPN ---
History Chief Complaint: Surgical incision pain Interval History 07/30: 57-year-old gentleman with a history of lumbar osteomyelitis and discitis with abscess who underwent L4-[address] Felipe from neurosurgery. He has a chronic history of low back pain and more recent MRI scan shows degenerative L4-5 stenosis with facet hypertrophy and grade 1 spondylolisthesis along with some possible L5 anterior vertebral body osteomyelitis with the prevertebral retroperitoneal abscess. Patient was scheduled to follow-up with Dr. Felipe but returned to the emergency room for persistent back pain. Currently he is very sedated but does awaken and relates that his pain is controlled. He has been ambulating with a cane on a chronic basis. No bowel bladder incontinence or any lower extremity weakness noted. Dr. Gamez from neurosurgery coverage over the weekend was consulted and deferred further management to Dr. Felipe who is currently out of town. 08/06: When seen this morning the patient is asleep in bed. He does awaken to voice but is drowsy after that. He complains of pain to the lower back that does radiate down both lower extremities to the knees. He denies any numbness or tingling to the lower extremities. He does have low lumbar tenderness to palpation. He did not have any apparent lower extremity sensory deficits. His motor strength exam was incomplete due to patient not fully participating due to pain and drowsiness. 08/08/2017: Relatively awake and alert. Status post lumbar puncture 08/14/2017: Retroperitoneal approach evacuation of retroperitoneal-bilateral psoas muscle abscess Exam Results Vital Signs Date Time Temp Pulse Resp B/P (MAP) Pulse Ox O2 Delivery O2 Flow Rate FiO2 08/17/17 17:08 98.4 90 16 104/69 (81) 93 08/15/17 08:28 21 08/14/17 23:22 Nasal Cannula 3.00 Intake and Output 08/17/17 08/17/17 08/18/17 08:00 16:00 00:00 Intake Total 575 ml Output Total 1195 ml Balance -620 ml Physical Examination GENERAL: Awake in bed. Affect flat but readily interacts. No apparent distress. SKIN: Dressings dry and intact. Drains in place HEENT: Normocephalic, atraumatic. RESPIRATORY: Clear nonlabored CARDIOVASCULAR: Pulse regular GASTROINTESTINAL: Abdomen soft nontender NEUROLOGICAL: AAOx3. Speech clear & appropriate. Follows commands w/o difficulty. Sensation intact to light touch to the lower extremities. Muscle strength is 5/5 to the lower extremities Lab, Micro, Other Results Laboratory Tests Test 08/17/17 04:02 White Blood Count 6.3 TH/MM3 Red Blood Count 2.69 MIL/MM3 Hemoglobin 7.7 GM/DL Hematocrit 23.4 % Mean Corpuscular Volume 87.0 FL Mean Corpuscular Hemoglobin 28.4 PG Mean Corpuscular Hemoglobin Concent 32.7 % Red Cell Distribution Width 15.0 % Platelet Count 185 TH/MM3 Mean Platelet Volume 7.4 FL Neutrophils (%) (Auto) 66.2 % Lymphocytes (%) (Auto) 13.9 % Monocytes (%) (Auto) 13.4 % Eosinophils (%) (Auto) 5.6 % Basophils (%) (Auto) 0.9 % Neutrophils # (Auto) 4.2 TH/MM3 Lymphocytes # (Auto) 0.9 TH/MM3 Monocytes # (Auto) 0.8 TH/MM3 Eosinophils # (Auto) 0.4 TH/MM3 Basophils # (Auto) 0.1 TH/MM3 CBC Comment DIFF FINAL Differential Comment Blood Urea Nitrogen 20 MG/DL Creatinine 1.68 MG/DL Random Glucose 85 MG/DL Calcium Level 7.9 MG/DL Sodium Level 138 MEQ/L Potassium Level 4.3 MEQ/L Chloride Level 105 MEQ/L Carbon Dioxide Level 24.6 MEQ/L Anion Gap 8 MEQ/L Estimat Glomerular Filtration Rate 52 ML/MIN Medical Decision Making Impression and Plan Impression: 1. L4-5 discitis with bilateral psoas abscess. Stable neurologic exam following retroperitoneal approach for drainage of abscess Plan: Mobilize out of bed as tolerated with LSO brace Advance diet per general surgery Continue physical therapy Discussed with infectious disease today. Would like to wait at least 6 weeks with further IV antibiotics and follow-up imaging of the lumbar spine before considering placement of instrumentation if needed. There is a possibility that the patient will proceed to a spontaneous fusion at the L4-5 level. There is a risk of progressive subluxation which could lead to neurologic deficit, and may require earlier surgical intervention. Guero Felipe MD August 17, 2017 18:00
[2017-08-17 20:00] VITALS: BP 114/70; PULSE 92; RESP 18; TEMP 99.1; O2SAT 92
[2017-08-17 23:28] LABS: HEMATOCRIT 24.1 % (39.0-51.0); HEMOGLOBIN 7.9 GM/DL (13.0-17.0)
[2017-08-18 00:21] VITALS: BP 140/81; PULSE 95; RESP 18; TEMP 98.8; O2SAT 95
[2017-08-18] MEDS: oxyCODONE/ACETAMINOPHEN 5 MG/325 MG TAB PO PRN ×2 (03:30→08:41)
[2017-08-18] MEDS: cefTRIAXone INJ 2,000 MG in SODIUM CHLORIDE 0.9% INJ 100 ML IV SCH ×2 (04:10→16:29)
[2017-08-18 06:50] LABS: AUTOMATED NEUTROPHIL # 4.1 TH/MM3 (1.8-7.7); BASOPHIL % 0.4 % (0.0-2.0); EOSINOPHIL # 0.4 TH/MM3 (0-0.4); EOSINOPHIL % 6.8 % (0.0-4.0); HEMATOCRIT 23.8 % (39.0-51.0); HEMOGLOBIN 7.8 GM/DL (13.0-17.0); LYMPH % 13.1 % (9.0-44.0); LYMPHOCYTE # 0.8 TH/MM3 (1.0-4.8); MEAN CELL VOLUME 87.1 FL (80.0-100.0); MEAN CORPUSCULAR HEMOGLOBIN 28.7 PG (27.0-34.0); MEAN PLATELET VOLUME 7.2 FL (7.0-11.0); MONO % 13.2 % (0.0-8.0); MONOCYTE # 0.8 TH/MM3 (0-0.9); NEUT % 66.5 % (16.0-70.0); PLATELET COUNT 204 TH/MM3 (150-450); RED BLOOD COUNT 2.73 MIL/MM3 (4.50-5.90); RED CELL DISTRIBUTION WIDTH 15.3 % (11.6-17.2); WHITE BLOOD COUNT 6.2 TH/MM3 (4.0-11.0)
[2017-08-18 06:53] LABS: BICARBONATE 24.9 MEQ/L (21.0-32.0); CALCIUM 7.7 MG/DL (8.5-10.1); CREATININE 1.49 MG/DL (0.60-1.30)
[2017-08-18] MEDS: SODIUM CHLOR 0.9% 1000 ML INJ 1,000 ML IV SCH ×2 (06:54→21:12)
[2017-08-18 08:00] VITALS: BP 130/89; PULSE 101; RESP 19; TEMP 98.5; O2SAT 94
[2017-08-18] MEDS: DOCUSATE SODIUM 50 MG/SENNA 8.6 MG TAB PO SCH ×2 (08:38→19:54)
[2017-08-18] MEDS: cloNIDine HCL 0.1 MG TAB PO SCH (08:38)
[2017-08-18] MEDS: FAMOTIDINE 20 MG TAB PO SCH ×2 (08:38→19:54)
[2017-08-18] MEDS: LACTIC ACID (AMMONIUM LACTATE) 12% LOTION 225 GM BTL TOPICAL SCH ×4 (08:39→19:54)
[2017-08-18] MEDS: SODIUM CHLORIDE 0.9% FLUSH 10 ML FLUSH IV FLUSH SCH ×2 (08:39→19:54)
[2017-08-18] MEDS: POLYETHYLENE GLYCOL 17 GM PKG PO SCH (09:00)
[2017-08-18 12:00] VITALS: BP 147/79; PULSE 96; RESP 17; TEMP 100.5; O2SAT 95
--- NOTE | 2017-08-18 12:13 | HHI.PR ---
Subjective Remarks Follow up bacteremia, constipation. Per nursing, patient reporting worsening constipation. No documented BM since 08/14. Patient denies chest pain, dyspnea. Objective Vitals Vital Signs Date Time Temp Pulse Resp B/P (MAP) Pulse Ox O2 Delivery O2 Flow Rate FiO2 08/18/17 08:00 98.5 101 19 130/89 (103) 94 08/18/17 04:30 18 08/18/17 00:21 98.8 95 18 140/81 (100) 95 08/17/17 20:00 99.1 92 18 114/70 (85) 92 08/17/17 17:08 98.4 90 16 104/69 (81) 93 I/O 08/17/17 08/17/17 08/17/17 08/18/17 08/18/17 08/18/17 06:59 14:59 22:59 06:59 14:59 22:59 Intake Total 955 ml 660 ml 140 ml Output Total 1195 ml 1100 ml Balance -240 ml -440 ml 140 ml Intake Oral 475 ml 660 ml IV Total 480 ml 140 ml Output Urine Total 1125 ml 1100 ml Drainage Total 70 ml Result Diagram: 08/18/17 0435 08/18/17 0435 Imaging Last Impressions Chest X-Ray 08/15/17 0000 Signed Impressions: Service Date/Time: Tuesday, August 15, 2017 11:34 - CONCLUSION: Mild compensated cardiomegaly Roly Reina MD FACR Lumbar Spine MRI 08/08/17 0000 Signed Impressions: Service Date/Time: Tuesday, August 08, 2017 13:37 - CONCLUSION: Substantial progression as described above. Roly Reina MD FACR Lumbar Puncture Fluoroscopy 08/08/17 0000 Signed Impressions: Service Date/Time: Tuesday, August 08, 2017 15:42 - CONCLUSION: Uncomplicated fluoroscopically guided lumbar puncture. Fady Chan MD Needle Biopsy/Aspiration X-Ray 07/31/17 0000 Signed Impressions: Service Date/Time: Monday, July 31, 2017 13:29 - CONCLUSION: Uncomplicated needle biopsy of the L4/L5 disc space as above. Candelario Reina MD Abdomen/Pelvis CT 07/29/17 0000 Signed Impressions: Service Date/Time: Saturday, July 29, 2017 22:14 - CONCLUSION: 1. Significant new prevertebral soft tissue fullness and stranding centered at the L5 level. There is associated sclerosis and erosive changes in the anterior L5 vertebral body which appear unchanged from recent exams. Overall, findings are concerning for discitis and osteomyelitis. Consider repeat MRI examination for further evaluation. 2. 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 However, evaluation is significantly limited due to lack of IV contrast on this exam. This was not present on remote prior CT exam. A mycotic aneurysm cannot be entirely excluded. Contrast enhanced examination would be greatly beneficial in further evaluation. 3. Nodular appearing liver contour consistent with cirrhosis. 4. IVC filter in place. 5. Cholelithiasis. Tanner Jones MD Objective Remarks General: No acute distress. Heart: Regular rate and rhythm. No murmur. Lungs: Clear to auscultation bilaterally. No wheezes, rales, or rhonchi. Breathing is nonlabored. Abdomen: Soft, nontender, nondistended. Positive bowel sounds. Extremities: No lower extremity edema. Psych: Sleeping, but awakens and answers questions appropriately. Neuro: No focal deficits noted. 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 Osteomyelitis of the L5 vertebra, bilateral psoas muscle abscess: Status post CT-guided removal of fluid for culture as well as disc biopsy on 07/31/17. Appreciate neurosurgery, vascular surgery, infectious disease recommendations. Status post drainage of abscess on 08/14/17. Wound culture is negative. Mycobacterial and fungal cultures are pending. Continue antibiotics. 2. Bacteremia with Strep Anginosis: Continue antibiotics per infectious disease. 3. Altered mental status: Resolved. Likely secondary to drug abuse. S/P lumbar puncture. Evaluated by psychiatry, patient is capable of making decisions. 4. Cocaine abuse: Urine toxicology positive for cocaine. 5. Right iliac artery aneurysm: Patient noted to have a 2.9 cm aneurysm of the right internal iliac artery, possibly mycotic aneurysm. This was an incidental finding. He denies IV drug abuse. Appreciate vascular surgery recommendations. No surgery planned at this time. 6. Hyponatremia: Resolved. 7. Chronic kidney disease stage II with acute kidney injury: Creatinine a little better today. Continue IV fluids. 8. Hyperkalemia: Resolved. 9. Anemia of chronic disease: H&H low, but stable. 10. DVT prophylaxis: SCDs. Discharge Planning Pending further clinical improvement and clearance by neurosurgery, infectious disease. Will likely need home health care. Tacho Lombardo MD August 18, 2017 12:13
[2017-08-18 16:00] VITALS: BP 113/76; PULSE 90; RESP 17; TEMP 98.8; O2SAT 94
[2017-08-18 20:00] VITALS: BP 123/77; PULSE 88; RESP 18; TEMP 99.3; O2SAT 94
[2017-08-19] MEDS: cefTRIAXone INJ 2,000 MG in SODIUM CHLORIDE 0.9% INJ 100 ML IV SCH ×2 (03:32→15:32)
[2017-08-19] MEDS: SODIUM CHLOR 0.9% 1000 ML INJ 1,000 ML IV SCH (03:33)
[2017-08-19] MEDS: oxyCODONE/ACETAMINOPHEN 5 MG/325 MG TAB PO PRN ×3 (05:52→21:57)
[2017-08-19 07:24] LABS: BICARBONATE 23.7 MEQ/L (21.0-32.0); CALCIUM 7.8 MG/DL (8.5-10.1); CREATININE 1.39 MG/DL (0.60-1.30)
[2017-08-19 07:34] LABS: AUTOMATED NEUTROPHIL # 4.7 TH/MM3 (1.8-7.7); BASOPHIL % 0.4 % (0.0-2.0); EOSINOPHIL # 0.3 TH/MM3 (0-0.4); HEMATOCRIT 24.8 % (39.0-51.0); LYMPHOCYTE # 1.3 TH/MM3 (1.0-4.8); MEAN CELL VOLUME 86.8 FL (80.0-100.0); MEAN CORPUSCULAR HEMOGLOBIN 28.2 PG (27.0-34.0); MEAN CORPUSCULAR HGB CONC 32.5 % (32.0-36.0); MEAN PLATELET VOLUME 7.1 FL (7.0-11.0); MONOCYTE # 1.1 TH/MM3 (0-0.9); NEUT % 63.6 % (16.0-70.0); PLATELET COUNT 261 TH/MM3 (150-450); RED BLOOD COUNT 2.85 MIL/MM3 (4.50-5.90); RED CELL DISTRIBUTION WIDTH 15.4 % (11.6-17.2); WHITE BLOOD COUNT 7.4 TH/MM3 (4.0-11.0)
[2017-08-19 08:00] VITALS: BP 134/89; PULSE 98; RESP 18; TEMP 99.3; O2SAT 94
[2017-08-19] MEDS: POLYETHYLENE GLYCOL 17 GM PKG PO SCH (08:14)
[2017-08-19] MEDS: FAMOTIDINE 20 MG TAB PO SCH ×3 (08:14→20:32)
[2017-08-19] MEDS: SODIUM CHLORIDE 0.9% FLUSH 10 ML FLUSH IV FLUSH SCH ×2 (08:14→19:55)
[2017-08-19] MEDS: cloNIDine HCL 0.1 MG TAB PO SCH (08:14)
[2017-08-19] MEDS: DOCUSATE SODIUM 50 MG/SENNA 8.6 MG TAB PO SCH ×3 (08:14→20:32)
[2017-08-19] MEDS: LACTIC ACID (AMMONIUM LACTATE) 12% LOTION 225 GM BTL TOPICAL SCH ×4 (08:15→19:55)
--- NOTE | 2017-08-19 09:51 | HHI.PR ---
Subjective Remarks Follow-up constipation, bacteremia. Patient still without bowel movements. States that he needs something different to eat than the regular hospital food. No chest pain or dyspnea. No nausea or vomiting. Objective Vitals Vital Signs Date Time Temp Pulse Resp B/P (MAP) Pulse Ox O2 Delivery O2 Flow Rate FiO2 08/19/17 08:00 99.3 98 18 134/89 (104) 94 08/18/17 20:00 99.3 88 18 123/77 (92) 94 08/18/17 16:00 98.8 90 17 113/76 (88) 94 08/18/17 12:00 100.5 96 17 147/79 (101) 95 I/O 08/18/17 08/18/17 08/18/17 08/19/17 08/19/17 08/19/17 07:00 15:00 23:00 07:00 15:00 23:00 Intake Total 660 ml 140 ml 2720 ml 804 ml 60 ml Output Total 1100 ml 621 ml 1625 ml Balance -440 ml 140 ml 2099 ml -821 ml 60 ml Intake Oral 660 ml 1000 ml 240 ml IV Total 140 ml 1720 ml 564 ml 60 ml Output Urine Total 1100 ml 600 ml 1525 ml Drainage Total 21 ml 100 ml # Bowel Movements 0 Result Diagram: 08/19/1719 08/19/17618 Imaging Last Impressions Chest X-Ray 08/15/17 0000 Signed Impressions: Service Date/Time: Tuesday, August 15, 2017 11:34 - CONCLUSION: Mild compensated cardiomegaly Roly Reina MD FACR Lumbar Spine MRI 08/08/17 0000 Signed Impressions: Service Date/Time: Tuesday, August 08, 2017 13:37 - CONCLUSION: Substantial progression as described above. Roly Reina MD FACR Lumbar Puncture Fluoroscopy 08/08/17 0000 Signed Impressions: Service Date/Time: Tuesday, August 08, 2017 15:42 - CONCLUSION: Uncomplicated fluoroscopically guided lumbar puncture. Fady Chan MD Needle Biopsy/Aspiration X-Ray 07/31/17 0000 Signed Impressions: Service Date/Time: Monday, July 31, 2017 13:29 - CONCLUSION: Uncomplicated needle biopsy of the L4/L5 disc space as above. Candelario Reina MD Abdomen/Pelvis CT 07/29/17 0000 Signed Impressions: Service Date/Time: Saturday, July 29, 2017 22:14 - CONCLUSION: 1. Significant new prevertebral soft tissue fullness and stranding centered at the L5 level. There is associated sclerosis and erosive changes in the anterior L5 vertebral body which appear unchanged from recent exams. Overall, findings are concerning for discitis and osteomyelitis. Consider repeat MRI examination for further evaluation. 2. 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 However, evaluation is significantly limited due to lack of IV contrast on this exam. This was not present on remote prior CT exam. A mycotic aneurysm cannot be entirely excluded. Contrast enhanced examination would be greatly beneficial in further evaluation. 3. Nodular appearing liver contour consistent with cirrhosis. 4. IVC filter in place. 5. Cholelithiasis. Tanner Jones MD Objective Remarks General: No acute distress. Heart: Regular rate and rhythm. No murmur. Lungs: Clear to auscultation bilaterally. No wheezes, rales, or rhonchi. Breathing is nonlabored. Abdomen: Soft, nontender, nondistended. Positive bowel sounds. Extremities: No lower extremity edema. Psych: Alert, answers questions appropriately. Neuro: No focal deficits noted. 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 Osteomyelitis of the L5 vertebra, bilateral psoas muscle abscess: Status post CT-guided removal of fluid for culture as well as disc biopsy on 07/31/17. Appreciate neurosurgery, vascular surgery, infectious disease recommendations. Status post drainage of abscess on 08/14/17. Wound culture is negative. Mycobacterial and fungal cultures are pending. Continue antibiotics. 2. Bacteremia with Strep Anginosis: Continue antibiotics per infectious disease. 3. Altered mental status: Resolved. Likely secondary to drug abuse. S/P lumbar puncture. Evaluated by psychiatry, patient is capable of making decisions. 4. Cocaine abuse: Urine toxicology positive for cocaine. 5. Right iliac artery aneurysm: Patient noted to have a 2.9 cm aneurysm of the right internal iliac artery, possibly mycotic aneurysm. This was an incidental finding. He denies IV drug abuse. Appreciate vascular surgery recommendations. No surgery planned at this time. 6. Hyponatremia: Resolved. 7. Chronic kidney disease stage II with acute kidney injury: Creatinine improving. Continue IV fluids. 8. Hyperkalemia: Resolved. 9. Anemia of chronic disease: H&H low, but stable. 10. Constipation: Last documented bowel movement 08/11/17. Patient states that he feels like he may need to have a bowel movement this morning. Continue bowel regimen. 11. DVT prophylaxis: SCDs. Discharge Planning Pending further clinical improvement and clearance by neurosurgery, infectious disease. Will likely need home health care. Tacho Lombardo MD August 19, 2017 09:51
[2017-08-19 12:00] VITALS: BP 117/84; PULSE 86; RESP 18; TEMP 99.1; O2SAT 96
[2017-08-19] MEDS: LACTULOSE SYRUP 20 GM/30 ML CUP PO PRN (13:55)
[2017-08-19 16:00] VITALS: BP 143/96; PULSE 92; RESP 20; TEMP 98.9; O2SAT 96
[2017-08-19 20:00] VITALS: BP 106/66; PULSE 88; RESP 16; TEMP 98.5; O2SAT 92
[2017-08-20] VITALS: BP 124/80; PULSE 82; RESP 16; TEMP 98; O2SAT 96
[2017-08-20] MEDS: SODIUM CHLOR 0.9% 1000 ML INJ 1,000 ML IV SCH ×2 (01:50→11:35)
[2017-08-20] MEDS: cefTRIAXone INJ 2,000 MG in SODIUM CHLORIDE 0.9% INJ 100 ML IV SCH ×2 (04:54→16:52)
[2017-08-20] MEDS: oxyCODONE/ACETAMINOPHEN 5 MG/325 MG TAB PO PRN ×2 (07:32→17:51)
[2017-08-20 08:00] VITALS: BP 145/91; PULSE 99; RESP 18; TEMP 98.8; O2SAT 96
--- NOTE | 2017-08-20 08:45 | HHI.IDPN ---
Subjective Subjective Remarks Patient seen and examined on behalf of Dr. Goldstein Mr. Gee is a 57-year-old -Citizen Of [place] male with past medical history significant for rheumatoid arthritis on prednisone. From infectious disease standpoint his past medical history significant for prior history of strep epidural abscess as well as bacteremia treated with IV antibiotics and also needing L4 partial laminectomy in 2013 as well as an abscess on the skin of his back.. His past medical history is also significant for chronic kidney disease stage III, chronic back pain, cocaine abuse and tobacco abuse who presented to the emergency department with complaints of severe back pain. Patient is an extremely poor historian and reports that he has had a prior visit to the emergency room on July 23, 2017 with similar symptoms. An MRI of the L-spine did not show any evidence of infection patient was asked to follow-up with Dr. Pineda whom he has seen in the past. On arrival, BP 125/71, HR 86, O2 sat 100% RA, Afebrile. WBC 20.8. Na 128. K+ 5.5. Creatinine 2.84, previously 2.97 on 07/23/2017. INR 1.1. UA negative for UTI. 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 S/p Vanc/ Rocephin in ER. At the time of my evaluation patient is on a regular floor. Appears to be comfortable not in significant pain involving his extremities. Patient reports tingling numbness and extreme pain in his bilateral lower extremities right more than left. Patient denies any bowel bladder incontinence. Denies any decrease in perineal sensation. Infectious diseases consulted for evaluation and management of discitis and epidural abscess. Notes reviewed pain controlled. +BM patient states he feels alot better. Has difficulty with ambulation due to joint pain and distal neuropathy he is requesting to be resumed on his Prednisone 10mg daily for Sarcoidosis no fever or chills no rash no N/V no diarrhea T max 100.5 08/18, afebrile for past 24hrs WBC WNL 08/19 MRI repeat showing progression of infection, and dev of lenin psoas abscess LP results noted, WBC only 5, but with low glucose and elevated protein 07/29 BCX + strep anginosus/milleri. Repeat BCX 08/02 with no growth x 5 days Intraop cx remain neg thus far Antibiotics IV Ceftriaxone q 12 Lines Line sites with no e.o infection. Past Medical History reviewed. (Jeni Reed) Allergies: Coded Allergies: *MDRO Multi-Drug Resistant Organism (Verified Adverse Reaction, Unknown, ) MRSA (leg wound) - 10/2006 MRSA PCR screen positive - 10/2014 Objective . Vital Signs Date Time Temp Pulse Resp B/P (MAP) Pulse Ox O2 Delivery O2 Flow Rate FiO2 08/20/17 00:00 98.0 82 16 124/80 (95) 96 08/19/17 20:00 98.5 88 16 106/66 (79) 92 08/19/17 16:00 98.9 92 20 143/96 (112) 96 08/19/17 12:00 99.1 86 18 117/84 (95) 96 . Laboratory Tests Test 08/19/17 06:19 White Blood Count 7.4 TH/MM3 Red Blood Count 2.85 MIL/MM3 Hemoglobin 8.0 GM/DL Hematocrit 24.8 % Mean Corpuscular Volume 86.8 FL Mean Corpuscular Hemoglobin 28.2 PG Mean Corpuscular Hemoglobin Concent 32.5 % Red Cell Distribution Width 15.4 % Platelet Count 261 TH/MM3 Mean Platelet Volume 7.1 FL Neutrophils (%) (Auto) 63.6 % Lymphocytes (%) (Auto) 17.0 % Monocytes (%) (Auto) 15.0 % Eosinophils (%) (Auto) 4.0 % Basophils (%) (Auto) 0.4 % Neutrophils # (Auto) 4.7 TH/MM3 Lymphocytes # (Auto) 1.3 TH/MM3 Monocytes # (Auto) 1.1 TH/MM3 Eosinophils # (Auto) 0.3 TH/MM3 Basophils # (Auto) 0.0 TH/MM3 CBC Comment DIFF FINAL Differential Comment Laboratory Tests Test 08/19/17 06:19 Blood Urea Nitrogen 16 MG/DL Creatinine 1.39 MG/DL Random Glucose 89 MG/DL Calcium Level 7.8 MG/DL Sodium Level 136 MEQ/L Potassium Level 4.6 MEQ/L Chloride Level 103 MEQ/L Carbon Dioxide Level 23.7 MEQ/L Anion Gap 9 MEQ/L Estimat Glomerular Filtration Rate 64 ML/MIN Imaging Last Impressions Chest X-Ray 08/15/17 0000 Signed Impressions: Service Date/Time: Tuesday, August 15, 2017 11:34 - CONCLUSION: Mild compensated cardiomegaly Roly Reina MD FACR Lumbar Spine MRI 08/08/17 0000 Signed Impressions: Service Date/Time: Tuesday, August 08, 2017 13:37 - CONCLUSION: Substantial progression as described above. Roly Reina MD FACR Lumbar Puncture Fluoroscopy 08/08/17 0000 Signed Impressions: Service Date/Time: Tuesday, August 08, 2017 15:42 - CONCLUSION: Uncomplicated fluoroscopically guided lumbar puncture. Fady Chan MD Needle Biopsy/Aspiration X-Ray 07/31/17 0000 Signed Impressions: Service Date/Time: Monday, July 31, 2017 13:29 - CONCLUSION: Uncomplicated needle biopsy of the L4/L5 disc space as above. Candelario Reina MD Abdomen/Pelvis CT 07/29/17 0000 Signed Impressions: Service Date/Time: Saturday, July 29, 2017 22:14 - CONCLUSION: 1. Significant new prevertebral soft tissue fullness and stranding centered at the L5 level. There is associated sclerosis and erosive changes in the anterior L5 vertebral body which appear unchanged from recent exams. Overall, findings are concerning for discitis and osteomyelitis. Consider repeat MRI examination for further evaluation. 2. 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 However, evaluation is significantly limited due to lack of IV contrast on this exam. This was not present on remote prior CT exam. A mycotic aneurysm cannot be entirely excluded. Contrast enhanced examination would be greatly beneficial in further evaluation. 3. Nodular appearing liver contour consistent with cirrhosis. 4. IVC filter in place. 5. Cholelithiasis. Tanner Jones MD Physical Exam GENERAL: Well developed well nourished male patient, INAD. Awake and alert. Lying in hospital bed. Appears comfortable. Appears much more alert this am. SKIN: Warm and dry. No obvious rash. BLE with extremely dry skin improved. HEAD: Atraumatic. Normocephalic. EYES: EOMI. No scleral icterus. No injection or drainage. ENT: No gross bleeding. MMM. NECK: Trachea midline. Moves neck in all directions. No rigidity noted. CARDIOVASCULAR: Regular rate and rhythm. RESPIRATORY: Nonlabored. Diminished. Clear to auscultation anteriorly. GASTROINTESTINAL: Soft, postop with surgical incision over left side of abdomen with dry and intact dressing, incision appears to be healing well, lamin intact, small amount of serosanguineous drainage noted over lower portion of dressing. ALY drain x 2 with small amount of serosanguineous drainage noted. MUSCULOSKELETAL: No pedal edema NEUROLOGICAL: Awake and alert. Moves all extremities spontaneously. Normal speech. PSYCHIATRIC: Calm and cooperative. IV line sites with no e.o infection (Jeni Reed) Assessment & Plan Remarks Strep bacteremia, probable endocarditis Probable meningitis based on glucose and total protein (partially treated by the time LP done) Epidural abscess Discitis. - progression of infection on MRI repeat Bilateral psoas fluid collection s/p I&D 08/14 with 250ml yellowish purulent material removed. Fever postop, resolved. 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 Immune compromised host on steroids Acute on chronic kidney disease, improving Hyperkalemia, resolved Hep B reactive Anemia, suspect postop anemia of acute blood loss, appears stable Recs Will follow up on intraoperative C/S - no growth thus far Continue ceftriaxone IV q12hrs needed for [employer] infection, discitis, aneurysm, psoas abscess. Concern for IVDU. Patient unsafe for discharge to home and will need placement to complete IV abx therapy for another 8-10 weeks. Will dw CM discharge plan - patient is agreeable to rehab facility. Does not want to return to his previous living arrangement. Lac Hydrin BLE Follow clinically Further recommendations to follow (Jeni Reed) Remarks The exam, history, and the medical decision-making described in the above note were completed with the assistance of the mid-level provider. I reviewed and agree with the findings presented. I attest that I had a [id number] encounter with the patient on the same day, and personally performed and documented my assessment and findings in the medical record. Continue Ceftriaxone IV q12hrs Will need placement. Please call or text me when accepted by Rehab. to cover for me 08/21/2017 to 08/23/2017. (Latricia Goldstein MD) Jeni Rede August 20, 2017 08:45 Latricia Goldstein MD August 20, 2017 13:02
[2017-08-20] MEDS: DOCUSATE SODIUM 50 MG/SENNA 8.6 MG TAB PO SCH ×2 (09:00→21:03)
[2017-08-20] MEDS: SODIUM CHLORIDE 0.9% FLUSH 10 ML FLUSH IV FLUSH SCH ×2 (09:00→21:04)
[2017-08-20] MEDS: LACTIC ACID (AMMONIUM LACTATE) 12% LOTION 225 GM BTL TOPICAL SCH ×4 (09:00→21:04)
[2017-08-20] MEDS: POLYETHYLENE GLYCOL 17 GM PKG PO SCH (09:00)
--- NOTE | 2017-08-20 09:22 | HHI.PR ---
Subjective Remarks Follow-up constipation, bacteremia, osteomyelitis. Patient had a large bowel movement and states that he feels much better. Denies nausea or vomiting. Denies shortness of breath. Objective Vitals Vital Signs Date Time Temp Pulse Resp B/P (MAP) Pulse Ox O2 Delivery O2 Flow Rate FiO2 08/20/17 08:00 98.8 99 18 145/91 (109) 96 08/20/17 00:00 98.0 82 16 124/80 (95) 96 08/19/17 20:00 98.5 88 16 106/66 (79) 92 08/19/17 16:00 98.9 92 20 143/96 (112) 96 08/19/17 12:00 99.1 86 18 117/84 (95) 96 I/O 08/19/17 08/19/17 08/19/17 08/20/17 08/20/17 08/20/17 07:00 15:00 23:00 07:00 15:00 23:00 Intake Total 804 ml 60 ml 2260 ml 970 ml Output Total 1625 ml 901 ml 1370 ml Balance -821 ml 60 ml 1359 ml -400 ml Intake Oral 240 ml 780 ml 240 ml IV Total 564 ml 60 ml 1480 ml 730 ml Output Urine Total 1525 ml 800 ml 1300 ml Drainage Total 100 ml 101 ml 70 ml # Bowel Movements 1 Result Diagram: 08/19/1719 08/19/17618 Imaging Last Impressions Chest X-Ray 08/15/17 0000 Signed Impressions: Service Date/Time: Tuesday, August 15, 2017 11:34 - CONCLUSION: Mild compensated cardiomegaly Roly Reina MD FACR Lumbar Spine MRI 08/08/17 0000 Signed Impressions: Service Date/Time: Tuesday, August 08, 2017 13:37 - CONCLUSION: Substantial progression as described above. Roly Reina MD FACR Lumbar Puncture Fluoroscopy 08/08/17 0000 Signed Impressions: Service Date/Time: Tuesday, August 08, 2017 15:42 - CONCLUSION: Uncomplicated fluoroscopically guided lumbar puncture. Fady Chan MD Needle Biopsy/Aspiration X-Ray 07/31/17 0000 Signed Impressions: Service Date/Time: Monday, July 31, 2017 13:29 - CONCLUSION: Uncomplicated needle biopsy of the L4/L5 disc space as above. Candelario Reina MD Abdomen/Pelvis CT 07/29/17 0000 Signed Impressions: Service Date/Time: Saturday, July 29, 2017 22:14 - CONCLUSION: 1. Significant new prevertebral soft tissue fullness and stranding centered at the L5 level. There is associated sclerosis and erosive changes in the anterior L5 vertebral body which appear unchanged from recent exams. Overall, findings are concerning for discitis and osteomyelitis. Consider repeat MRI examination for further evaluation. 2. 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 However, evaluation is significantly limited due to lack of IV contrast on this exam. This was not present on remote prior CT exam. A mycotic aneurysm cannot be entirely excluded. Contrast enhanced examination would be greatly beneficial in further evaluation. 3. Nodular appearing liver contour consistent with cirrhosis. 4. IVC filter in place. 5. Cholelithiasis. Tanner Jones MD Objective Remarks General: No acute distress. Heart: Regular rate and rhythm. No murmur. Lungs: Clear to auscultation bilaterally. No wheezes, rales, or rhonchi. Breathing is nonlabored. Abdomen: Soft, nontender, nondistended. Positive bowel sounds. Extremities: No lower extremity edema. Psych: Alert, oriented, answers questions appropriately. Neuro: No focal deficits noted. 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 Awaiting further recommendations from neurosurgery, vascular surgery, infectious disease. Patient will need long- term IV antibiotics (8-10 weeks). 1. Osteomyelitis of the L5 vertebra, bilateral psoas muscle abscess: Status post CT-guided removal of fluid for culture as well as disc biopsy on 07/31/17. Appreciate neurosurgery, vascular surgery, infectious disease recommendations. Status post drainage of abscess on 08/14/17. Wound culture is negative. Mycobacterial and fungal cultures are pending. Continue antibiotics. 2. Bacteremia with Strep Anginosis: Continue antibiotics per infectious disease. 3. Altered mental status: Resolved. Likely secondary to drug abuse. S/P lumbar puncture. Evaluated by psychiatry, patient is capable of making decisions. 4. Cocaine abuse: Urine toxicology positive for cocaine. There was concern that the patient may have used cocaine while in the hospital as his urine drug screen was positive 8 days after admission. 5. Right iliac artery aneurysm: Patient noted to have a 2.9 cm aneurysm of the right internal iliac artery, possibly mycotic aneurysm. This was an incidental finding. He denies IV drug abuse. Appreciate vascular surgery recommendations. No surgery planned at this time. 6. Hyponatremia: Resolved. 7. Chronic kidney disease stage II with acute kidney injury: Creatinine improving. Continue IV fluids. 8. Hyperkalemia: Resolved. 9. Anemia of chronic disease: H&H low, but stable. 10. Constipation: Resolved. Continue bowel regimen. 11. DVT prophylaxis: SCDs. Discharge Planning Pending further clinical improvement and clearance by neurosurgery, infectious disease. Will likely need SNF. Case management assisting with discharge planning. Tacho Lombardo MD August 20, 2017 09:22
[2017-08-20] MEDS: cloNIDine HCL 0.1 MG TAB PO SCH (09:24)
[2017-08-20] MEDS: FAMOTIDINE 20 MG TAB PO SCH ×2 (09:29→21:03)
--- NOTE | 2017-08-20 14:50 | HHI.NSPN ---
(KendallApolinar) History Chief Complaint: Numbness to both feet when he stands on them. (KendallApolinar) Interval History 07/30: 57-year-old gentleman with a history of lumbar osteomyelitis and discitis with abscess who underwent L4-[address] Felipe from neurosurgery. He has a chronic history of low back pain and more recent MRI scan shows degenerative L4-5 stenosis with facet hypertrophy and grade 1 spondylolisthesis along with some possible L5 anterior vertebral body osteomyelitis with the prevertebral retroperitoneal abscess. Patient was scheduled to follow-up with Dr. Felipe but returned to the emergency room for persistent back pain. Currently he is very sedated but does awaken and relates that his pain is controlled. He has been ambulating with a cane on a chronic basis. No bowel bladder incontinence or any lower extremity weakness noted. Dr. Gamez from neurosurgery coverage over the weekend was consulted and deferred further management to Dr. Felipe who is currently out of town. 08/06: When seen this morning the patient is asleep in bed. He does awaken to voice but is drowsy after that. He complains of pain to the lower back that does radiate down both lower extremities to the knees. He denies any numbness or tingling to the lower extremities. He does have low lumbar tenderness to palpation. He did not have any apparent lower extremity sensory deficits. His motor strength exam was incomplete due to patient not fully participating due to pain and drowsiness. 08/08/2017: Relatively awake and alert. Status post lumbar puncture 08/10: This afternoon the patient is asleep but awakens to voice. After that he is alert and readily interacts. He does say he has some pain to the low back and into the legs but he denies any numbness or tingling. No sensorimotor deficits are noted upon examination. 08/13: The patient is awake when seen this morning. He continues to have low back pain that goes into the legs but he denies any numbness or tingling. He has no evident sensorimotor deficits upon evaluation. 08/14: The patient went for a lateral oblique/retroperitoneal approach for drainage of lumbar retroperitoneal and bilateral psoas muscle abscess by Neurosurgery and General Surgery. Post-operatively the patient was admitted to the ISC unit for further care and monitoring. 08/15: The patient is awake in bed this afternoon when seen. He does have pain to the left lateral abdominal wall/flank at the surgical incisions. He denies any back or lower extremity pain. He has no numbness or tingling to the lower extremities. There are no evident sensorimotor deficits noted upon examination. 08/20: The patient is asleep when seen but awakens to voice. After that he is awake and alert. He denies any back or lower extremity pain. He has numbness to both feet but only when he stands, otherwise he has no numbness to the lower extremities. He had no numbness to the feet when examined and his muscle strength was normal. He did say that he had some incisional pain but only when he is getting up "or something like that." (Apolinar Argueta) Exam Results 08/18/17 08/18/17 08/19/17 08/19/17 08/20/17 08/20/17 06:00 18:00 06:00 18:00 06:00 18:00 Intake Total 660 ml 1140 ml 2524 ml 1320 ml 1970 ml Output Total 1100 ml 616 ml 1630 ml 880 ml 691 ml 700 ml Balance -440 ml 524 ml 894 ml 440 ml 1279 ml -700 ml Intake Oral 660 ml 1000 ml 240 ml 780 ml 240 ml IV Total 140 ml 2284 ml 540 ml 1730 ml Output Urine Total 1100 ml 600 ml 1525 ml 800 ml 600 ml 700 ml Drainage Total 16 ml 105 ml 80 ml 91 ml # Bowel Movements 0 0 1 Vital Signs Date Time Temp Pulse Resp B/P (MAP) Pulse Ox O2 Delivery O2 Flow Rate FiO2 08/20/17 08:30 16 08/20/17 08:00 98.8 99 18 145/91 (109) 96 08/20/17 00:00 98.0 82 16 124/80 (95) 96 08/19/17 20:00 98.5 88 16 106/66 (79) 92 08/19/17 16:00 98.9 92 20 143/96 (112) 96 08/19/17 12:00 99.1 86 18 117/84 (95) 96 08/19/17 08:00 99.3 98 18 134/89 (104) 94 08/18/17 20:00 99.3 88 18 123/77 (92) 94 08/18/17 16:00 98.8 90 17 113/76 (88) 94 08/18/17 12:00 100.5 96 17 147/79 (101) 95 08/18/17 08:00 98.5 101 19 130/89 (103) 94 08/18/17 00:21 98.8 95 18 140/81 (100) 95 08/17/17 20:00 99.1 92 18 114/70 (85) 92 08/17/17 17:08 98.4 90 16 104/69 (81) 93 (Apolinar Argueta) Physical Examination GENERAL: Asleep in bed but awakens to voice. Affect flat but readily interacts. No apparent distress. SKIN: Dressings dry and intact to left anterolateral abdominal wall surgical incisions. Drains in place w/o evident erythema, streaking or active drainage at insertion sites. HEENT: Normocephalic, atraumatic. GASTROINTESTINAL: Abdomen soft nontender, surgical incisions w/intact dressings , ALY drains x2 to bulb suction w/serosanguinous drainage. NEUROLOGICAL: AAOx3. Speech clear & appropriate. Follows commands w/o difficulty. Sensation intact to light touch to the lower extremities. Muscle strength is 5/5 to the lower extremities. (Apolinar Argueta) Lab, Micro, Other Results Laboratory Tests Test 08/17/17 22:39 08/18/17 04:35 08/19/17 06:19 Hemoglobin 7.9 GM/DL 7.8 GM/DL 8.0 GM/DL Hematocrit 24.1 % 23.8 % 24.8 % White Blood Count 6.2 TH/MM3 7.4 TH/MM3 Red Blood Count 2.73 MIL/MM3 2.85 MIL/MM3 Mean Corpuscular Volume 87.1 FL 86.8 FL Mean Corpuscular Hemoglobin 28.7 PG 28.2 PG Mean Corpuscular Hemoglobin Concent 33.0 % 32.5 % Red Cell Distribution Width 15.3 % 15.4 % Platelet Count 204 TH/MM3 261 TH/MM3 Mean Platelet Volume 7.2 FL 7.1 FL Neutrophils (%) (Auto) 66.5 % 63.6 % Lymphocytes (%) (Auto) 13.1 % 17.0 % Monocytes (%) (Auto) 13.2 % 15.0 % Eosinophils (%) (Auto) 6.8 % 4.0 % Basophils (%) (Auto) 0.4 % 0.4 % Neutrophils # (Auto) 4.1 TH/MM3 4.7 TH/MM3 Lymphocytes # (Auto) 0.8 TH/MM3 1.3 TH/MM3 Monocytes # (Auto) 0.8 TH/MM3 1.1 TH/MM3 Eosinophils # (Auto) 0.4 TH/MM3 0.3 TH/MM3 Basophils # (Auto) 0.0 TH/MM3 0.0 TH/MM3 CBC Comment DIFF FINAL DIFF FINAL Differential Comment Blood Urea Nitrogen 18 MG/DL 16 MG/DL Creatinine 1.49 MG/DL 1.39 MG/DL Random Glucose 81 MG/DL 89 MG/DL Calcium Level 7.7 MG/DL 7.8 MG/DL Sodium Level 138 MEQ/L 136 MEQ/L Potassium Level 4.5 MEQ/L 4.6 MEQ/L Chloride Level 107 MEQ/L 103 MEQ/L Carbon Dioxide Level 24.9 MEQ/L 23.7 MEQ/L Anion Gap 6 MEQ/L 9 MEQ/L Estimat Glomerular Filtration Rate 59 ML/MIN 64 ML/MIN (Apolinar Argueta) Medical Decision Making Impression and Plan Impression: 1, 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 History of chronic low back pain. 3. L4-5 moderate spinal stenosis w/grade 1 spondylolisthesis 4. Prevertebral/retroperitoneal abscess 5. Possible L5 anterior osteomyelitis w/elevated sed rate and white count Postoperative Diagnosis: (1) Osteomyelitis (Neurosurgery) Lumbar discitis, osteomyelitis (Neurosurgery) Lumbar retroperitoneal-bilateral psoas abscess (Neurosurgery) Psoas abscess, paraspinal abscesses, sepsis. (General Surgery) The patient continues to do well. No sensorimotor deficits to lower extremities. Pain controlled. T max 100.5 the past 24 hrs. ALY drain output since surgery as of shift change this morning: #1 - 61 mL; #2 - 110 mL. Abscess culture () w/no growth on culture, final . MRI lumbar spine demonstrated increasing soft tissue signal to the back muscle from L1-L5. Increased marrow edema at L5 and to a lesser degree at L4. Increased disc space signal. Large bilateral psoas abscesses extending from L2 on the left into the iliopsoas and L3 on the right to the pelvis. Represents substantial progression. No significant epidural component. POD #6 () s/p: Lateral oblique approach for drainage of lumbar retroperitoneal and bilateral psoas muscle abscess (Neurosurgery) Retroperitoneal approach to the psoas muscle and drainage of psoas abscess and paraspinal abscess drainage. (General Surgery - Alyson Sanchez MD) Plan: Discussed the plan of care with the patient who verbalised his understanding and his questions were answered. Primary management per Hospitalist. Antibiotics per Infectious Disease. Mobilise patient w/assistance. Physical Therapy eval & tx. Will need at least 6 wks of IV antibiotics and follow-up imaging before consideration of any surgical intervention. (Apolinar Argueta) Attending Statement The exam, history, and the medical decision-making described in the above note were completed with the assistance of the mid-level provider. I reviewed and agree with the findings presented. I attest that I had a [id number] encounter with the patient on the same day, and personally performed and documented my assessment and findings in the medical record. (Guero Felipe MD) Apolinar Argueta August 20, 2017 14:50 Guero Felipe MD August 23, 2017 15:46
[2017-08-20 16:00] VITALS: BP 122/67; PULSE 90; RESP 18; TEMP 98.2; O2SAT 94
--- NOTE | 2017-08-20 17:37 | PD.CAR.PN ---
CVT Progress Note Subjective/Hospital Course: Referral received Studies reviewed Full consult to follow Oanh Craig 08/10/2017 Patient with retroperitoneal infection involving the vertebra and paraspinal muscles and psoas muscles extending toward the pelvis, with multiple abscesses throughout I have discussed the care with Dr. Felipe, Dr. Toney and the patient At this point the most preferred way to access this would be through a left preperitoneal approach in the same fashion we access abdominal aorta for preperitoneal lateral aneurysmorrhaphy. This incision would give quite plenty of space and access to drain all this. While technically this is a quite advantageous approach, I have to stress that ability to completely eliminate the infection and cure the patient permanently is very limited. The procedure is mainly meant to contain the infection clean everything up and minimize the sequela of the same If patient agrees with surgery has to be cleared that this is not most likely going to cure him but will definitely slow the infection down set it back and make it controllable. In addition the surgery itself carries obviously inherent risks of prolonged morbidity and mortality ranging in about 5-10% range The other option is not to do anything and make patient comfortable with palliative care but this will definitely leave the patient's demise I will be happy to discuss this with other family members this patient may desire and I will definitely be available for the surgery any time 08/13/2017 Patient with extensive retroperitoneal infections due to osteomyelitis now spread to the soft tissues including both psoas muscles I have discussed this with patient at length and tried to explain that the surgery will likely not be curative but will only temporize the infection and completely clearing it is almost impossible I also explained to the patient that this approach and surgery of course carries significant risk of morbidity and mortality in the further details of the surgery have to be discussed with neurosurgery I discussed this today with Dr. Felipe and patient would like to proceed with surgery so I will provide preperitoneal/retroperitoneal approach for further neurosurgical intervention 08/15/2017 Patient underwent yesterday left retroperitoneal exposure of the psoas muscles with drainage of large abscesses with about 250 cc of purulent material drained This morning patient is awake alert oriented Abdomen soft active bowel sounds and incision is clean and dry with dressing intact ALY drainage serosanguineous Patient has had several spikes of fever to 101.4 and considering that we mobilized all the purulent material from the back this is not uncommon and patient will have periods of bacteremia Currently on appropriate antibiotics and cultures from the surgery pending Plan Advance to diet Out of bed Transfer to floor 08/16/17 Incision dry ALY drainage down Abdomen soft Doing well 08/20/2017 Patient doing very well Incision is clean and dry ALY drains draining only serosanguineous small amounts of material and can be removed Will leave incision open to air From my point patient can be discharged anytime Jennifer to come out in about 10 days Objective: Vital Signs Date Time Temp Pulse Resp B/P (MAP) Pulse Ox O2 Delivery O2 Flow Rate FiO2 08/20/17 16:00 98.2 90 18 122/67 (85) 94 08/20/17 08:30 16 08/20/17 08:00 98.8 99 18 145/91 (109) 96 08/20/17 00:00 98.0 82 16 124/80 (95) 96 08/19/17 20:00 98.5 88 16 106/66 (79) 92 Result Diagram: 08/19/17 0619 08/19/17 0619 Felicia Sanchez MD August 20, 2017 17:37
[2017-08-20 20:00] VITALS: BP 136/85; PULSE 85; RESP 20; TEMP 97.9; O2SAT 96
[2017-08-21] VITALS: BP 110/72; PULSE 87; RESP 18; TEMP 98; O2SAT 94
[2017-08-21] MEDS: SODIUM CHLOR 0.9% 1000 ML INJ 1,000 ML IV SCH (02:34)
[2017-08-21 04:00] VITALS: BP 139/96; PULSE 96; RESP 18; O2SAT 94
[2017-08-21] MEDS: oxyCODONE/ACETAMINOPHEN 5 MG/325 MG TAB PO PRN ×3 (04:38→22:13)
[2017-08-21] MEDS: cefTRIAXone INJ 2,000 MG in SODIUM CHLORIDE 0.9% INJ 100 ML IV SCH ×2 (04:39→16:32)
[2017-08-21 08:00] VITALS: BP 139/93; PULSE 95; RESP 17; TEMP 98.1; O2SAT 91
[2017-08-21 08:29] LABS: HEMATOCRIT 24.4 % (39.0-51.0); HEMOGLOBIN 7.9 GM/DL (13.0-17.0); MEAN CELL VOLUME 85.1 FL (80.0-100.0); MEAN CORPUSCULAR HEMOGLOBIN 27.7 PG (27.0-34.0); MEAN CORPUSCULAR HGB CONC 32.6 % (32.0-36.0); MEAN PLATELET VOLUME 7.1 FL (7.0-11.0); PLATELET COUNT 272 TH/MM3 (150-450); RED BLOOD COUNT 2.87 MIL/MM3 (4.50-5.90); RED CELL DISTRIBUTION WIDTH 15.2 % (11.6-17.2); WHITE BLOOD COUNT 5.8 TH/MM3 (4.0-11.0)
--- NOTE | 2017-08-21 08:40 | HHI.NSPN ---
(Apolinar Argueta) History Chief Complaint: Occasional back pain. (Apolinar Argueta) Interval History 08/06: When seen this morning the patient is asleep in bed. He does awaken to voice but is drowsy after that. He complains of pain to the lower back that does radiate down both lower extremities to the knees. He denies any numbness or tingling to the lower extremities. He does have low lumbar tenderness to palpation. He did not have any apparent lower extremity sensory deficits. His motor strength exam was incomplete due to patient not fully participating due to pain and drowsiness. 08/08/2017: Relatively awake and alert. Status post lumbar puncture 08/10: This afternoon the patient is asleep but awakens to voice. After that he is alert and readily interacts. He does say he has some pain to the low back and into the legs but he denies any numbness or tingling. No sensorimotor deficits are noted upon examination. 08/13: The patient is awake when seen this morning. He continues to have low back pain that goes into the legs but he denies any numbness or tingling. He has no evident sensorimotor deficits upon evaluation. 08/14: The patient went for a lateral oblique/retroperitoneal approach for drainage of lumbar retroperitoneal and bilateral psoas muscle abscess by Neurosurgery and General Surgery. Post-operatively the patient was admitted to the [facility] unit for further care and monitoring. 08/15: The patient is awake in bed this afternoon when seen. He does have pain to the left lateral abdominal wall/flank at the surgical incisions. He denies any back or lower extremity pain. He has no numbness or tingling to the lower extremities. There are no evident sensorimotor deficits noted upon examination. 08/20: The patient is asleep when seen but awakens to voice. After that he is awake and alert. He denies any back or lower extremity pain. He has numbness to both feet but only when he stands, otherwise he has no numbness to the lower extremities. He had no numbness to the feet when examined and his muscle strength was normal. He did say that he had some incisional pain but only when he is getting up "or something like that." 08/21: When seen this morning the patient is awake in bed watching TV. He had no complaints but endorsed intermittent back pain. He also endorsed some mild tenderness at the left anterolateral abdominal wall surgical incision. The ALY drains were removed yesterday per General Surgery. There is no change noted in his physical exam. (Apolinar Argueta) Exam Results 08/19/17 08/19/17 08/20/17 08/20/17 08/21/17 08/21/17 06:00 18:00 06:00 18:00 06:00 18:00 Intake Total 2524 ml 1320 ml 1970 ml 1190 ml Output Total 1630 ml 880 ml 691 ml 1180 ml Balance 894 ml 440 ml 1279 ml 10 ml Intake Oral 240 ml 780 ml 240 ml 720 ml IV Total 2284 ml 540 ml 1730 ml 470 ml Output Urine Total 1525 ml 800 ml 600 ml 1150 ml Drainage Total 105 ml 80 ml 91 ml 30 ml # Voids 1 # Bowel Movements 0 1 Vital Signs Date Time Temp Pulse Resp B/P (MAP) Pulse Ox O2 Delivery O2 Flow Rate FiO2 08/21/17 04:00 96 18 139/96 (110) 94 08/21/17 00:00 98.0 87 18 110/72 (85) 94 08/20/17 20:00 97.9 85 20 136/85 (102) 96 08/20/17 16:00 98.2 90 18 122/67 (85) 94 08/20/17 08:30 16 08/20/17 08:00 98.8 99 18 145/91 (109) 96 08/20/17 00:00 98.0 82 16 124/80 (95) 96 08/19/17 20:00 98.5 88 16 106/66 (79) 92 08/19/17 16:00 98.9 92 20 143/96 (112) 96 08/19/17 12:00 99.1 86 18 117/84 (95) 96 08/19/17 08:00 99.3 98 18 134/89 (104) 94 08/18/17 20:00 99.3 88 18 123/77 (92) 94 08/18/17 16:00 98.8 90 17 113/76 (88) 94 08/18/17 12:00 100.5 96 17 147/79 (101) 95 (Apolinar Argueta) Physical Examination GENERAL: Awake in bed watching TV. Affect slightly flat but readily interacts. No apparent distress. SKIN: Left anterolateral abdominal wall surgical incision well approximated w/ lamin ROZINA. ALY drain insertion sites w/o evident erythema, streaking or active drainage, dressing w/some serosanguinous drainage. HEENT: Normocephalic, atraumatic. GASTROINTESTINAL: Abdomen soft, nontender, surgical incision minimally TTP, ALY drain insertion sites NTTP. NEUROLOGICAL: AAOx3. Speech clear & appropriate. Follows commands w/o difficulty. Sensation intact to light touch to the lower extremities. Muscle strength is 5/5 to the lower extremities. (Apolinar Argueta) Lab, Micro, Other Results Laboratory Tests Test 08/19/17 06:19 08/21/17 07:18 White Blood Count 7.4 TH/MM3 Red Blood Count 2.85 MIL/MM3 Hemoglobin 8.0 GM/DL Hematocrit 24.8 % Mean Corpuscular Volume 86.8 FL Mean Corpuscular Hemoglobin 28.2 PG Mean Corpuscular Hemoglobin Concent 32.5 % Red Cell Distribution Width 15.4 % Platelet Count 261 TH/MM3 Mean Platelet Volume 7.1 FL Neutrophils (%) (Auto) 63.6 % Lymphocytes (%) (Auto) 17.0 % Monocytes (%) (Auto) 15.0 % Eosinophils (%) (Auto) 4.0 % Basophils (%) (Auto) 0.4 % Neutrophils # (Auto) 4.7 TH/MM3 Lymphocytes # (Auto) 1.3 TH/MM3 Monocytes # (Auto) 1.1 TH/MM3 Eosinophils # (Auto) 0.3 TH/MM3 Basophils # (Auto) 0.0 TH/MM3 CBC Comment DIFF FINAL Differential Comment Blood Urea Nitrogen 16 MG/DL Creatinine 1.39 MG/DL Random Glucose 89 MG/DL Calcium Level 7.8 MG/DL Sodium Level 136 MEQ/L Potassium Level 4.6 MEQ/L Chloride Level 103 MEQ/L Carbon Dioxide Level 23.7 MEQ/L Anion Gap 9 MEQ/L Estimat Glomerular Filtration Rate 64 ML/MIN (Apolinar Argueta) Medical Decision Making Impression and Plan Impression: 1, 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 History of chronic low back pain. 3. L4-5 moderate spinal stenosis w/grade 1 spondylolisthesis 4. Prevertebral/retroperitoneal abscess 5. Possible L5 anterior osteomyelitis w/elevated sed rate and white count Postoperative Diagnosis: (1) Osteomyelitis (Neurosurgery) Lumbar discitis, osteomyelitis (Neurosurgery) Lumbar retroperitoneal-bilateral psoas abscess (Neurosurgery) Psoas abscess, paraspinal abscesses, sepsis. (General Surgery) The patient is doing well. No sensorimotor deficits to lower extremities. Pain controlled. Afebrile the past 24 hrs. ALY drain output the past 24 hrs as of shift change this morning: #1 - 10 mL; #2 - 20 mL. (ALY drains d/c'd .) Labs pending for this morning. MRI lumbar spine demonstrated increasing soft tissue signal to the back muscle from L1-L5. Increased marrow edema at L5 and to a lesser degree at L4. Increased disc space signal. Large bilateral psoas abscesses extending from L2 on the left into the iliopsoas and L3 on the right to the pelvis. Represents substantial progression. No significant epidural component. POD #7 () s/p: Lateral oblique approach for drainage of lumbar retroperitoneal and bilateral psoas muscle abscess (Neurosurgery) Retroperitoneal approach to the psoas muscle and drainage of psoas abscess and paraspinal abscess drainage. (General Surgery - Alyson Sanchez MD) Plan: Discussed the plan of care with the patient who verbalised his understanding and his questions were answered. Primary management per Hospitalist. Antibiotics per Infectious Disease. Mobilise patient w/assistance. Physical Therapy eval & tx. Will need at least 6 wks of IV antibiotics and follow-up imaging before consideration of any surgical intervention. (Apolinar Argueta) Attending Statement The exam, history, and the medical decision-making described in the above note were completed with the assistance of the mid-level provider. I reviewed and agree with the findings presented. I attest that I had a [id number] encounter with the patient on the same day, and personally performed and documented my assessment and findings in the medical record. (Guero Felipe MD) Apolinar Argueta August 21, 2017 08:40 Guero Felipe MD August 23, 2017 15:46
[2017-08-21 08:48] LABS: BICARBONATE 23.4 MEQ/L (21.0-32.0); CALCIUM 8.3 MG/DL (8.5-10.1); CREATININE 1.34 MG/DL (0.60-1.30)
[2017-08-21] MEDS: FAMOTIDINE 20 MG TAB PO SCH ×2 (08:51→22:08)
[2017-08-21] MEDS: POLYETHYLENE GLYCOL 17 GM PKG PO SCH (08:51)
[2017-08-21] MEDS: LACTIC ACID (AMMONIUM LACTATE) 12% LOTION 225 GM BTL TOPICAL SCH ×4 (08:51→22:08)
[2017-08-21] MEDS: SODIUM CHLORIDE 0.9% FLUSH 10 ML FLUSH IV FLUSH SCH ×2 (08:51→21:00)
[2017-08-21] MEDS: cloNIDine HCL 0.1 MG TAB PO SCH (08:51)
[2017-08-21] MEDS: DOCUSATE SODIUM 50 MG/SENNA 8.6 MG TAB PO SCH ×2 (08:51→22:08)
[2017-08-21] MEDS: predniSONE 10 MG TAB PO SCH (08:51)
[2017-08-21 09:43] LABS: BASOPHILS 1 % (0-2); LYMPHOCYTES 18 % (9-44); MONOCYTES 16 % (0-8); NEUTROPHIL # MANUAL DIFF 3.2 TH/MM3 (1.8-7.7); POLYS (SEG NEUTROPHILS) 56 % (16-70)
--- NOTE | 2017-08-21 10:25 | PD.CAR.PN ---
CVT Progress Note Subjective/Hospital Course: Referral received Studies reviewed Full consult to follow Oanh Craig 08/10/2017 Patient with retroperitoneal infection involving the vertebra and paraspinal muscles and psoas muscles extending toward the pelvis, with multiple abscesses throughout I have discussed the care with Dr. Felipe, Dr. Toney and the patient At this point the most preferred way to access this would be through a left preperitoneal approach in the same fashion we access abdominal aorta for preperitoneal lateral aneurysmorrhaphy. This incision would give quite plenty of space and access to drain all this. While technically this is a quite advantageous approach, I have to stress that ability to completely eliminate the infection and cure the patient permanently is very limited. The procedure is mainly meant to contain the infection clean everything up and minimize the sequela of the same If patient agrees with surgery has to be cleared that this is not most likely going to cure him but will definitely slow the infection down set it back and make it controllable. In addition the surgery itself carries obviously inherent risks of prolonged morbidity and mortality ranging in about 5-10% range The other option is not to do anything and make patient comfortable with palliative care but this will definitely leave the patient's demise I will be happy to discuss this with other family members this patient may desire and I will definitely be available for the surgery any time 08/13/2017 Patient with extensive retroperitoneal infections due to osteomyelitis now spread to the soft tissues including both psoas muscles I have discussed this with patient at length and tried to explain that the surgery will likely not be curative but will only temporize the infection and completely clearing it is almost impossible I also explained to the patient that this approach and surgery of course carries significant risk of morbidity and mortality in the further details of the surgery have to be discussed with neurosurgery I discussed this today with Dr. Felipe and patient would like to proceed with surgery so I will provide preperitoneal/retroperitoneal approach for further neurosurgical intervention 08/15/2017 Patient underwent yesterday left retroperitoneal exposure of the psoas muscles with drainage of large abscesses with about 250 cc of purulent material drained This morning patient is awake alert oriented Abdomen soft active bowel sounds and incision is clean and dry with dressing intact ALY drainage serosanguineous Patient has had several spikes of fever to 101.4 and considering that we mobilized all the purulent material from the back this is not uncommon and patient will have periods of bacteremia Currently on appropriate antibiotics and cultures from the surgery pending Plan Advance to diet Out of bed Transfer to floor 08/16/17 Incision dry ALY drainage down Abdomen soft Doing well 08/20/2017 Patient doing very well Incision is clean and dry ALY drains draining only serosanguineous small amounts of material and can be removed Will leave incision open to air From my point patient can be discharged anytime Jennifer to come out in about 10 days 08/21/2017 Incision clean and dry DC ALY May shower and leave incision open to air From my point patient can be discharged any time Objective: Vital Signs Date Time Temp Pulse Resp B/P (MAP) Pulse Ox O2 Delivery O2 Flow Rate FiO2 08/21/17 08:00 98.1 95 17 139/93 (108) 91 08/21/17 04:00 96 18 139/96 (110) 94 08/21/17 00:00 98.0 87 18 110/72 (85) 94 08/20/17 20:00 97.9 85 20 136/85 (102) 96 08/20/17 16:00 98.2 90 18 122/67 (85) 94 Labs: Laboratory Tests Test 08/21/17 07:18 White Blood Count 5.8 TH/MM3 (4.0-11.0) Red Blood Count 2.87 MIL/MM3 (4.50-5.90) Hemoglobin 7.9 GM/DL (13.0-17.0) Hematocrit 24.4 % (39.0-51.0) Mean Corpuscular Volume 85.1 FL (80.0-100.0) Mean Corpuscular Hemoglobin 27.7 PG (27.0-34.0) Mean Corpuscular Hemoglobin Concent 32.6 % (32.0-36.0) Red Cell Distribution Width 15.2 % (11.6-17.2) Platelet Count 272 TH/MM3 (150-450) Mean Platelet Volume 7.1 FL (7.0-11.0) CBC Comment AUTO DIFF Differential Total Cells Counted 100 Neutrophils % (Manual) 56 % (16-70) Lymphocytes % 18 % (9-44) Monocytes % 16 % (0-8) Eosinophils % 9 % (0-4) Basophils % 1 % (0-2) Neutrophils # (Manual) 3.2 TH/MM3 (1.8-7.7) Differential Comment FINAL DIFF MANUAL Platelet Estimate NORMAL (NORMAL) Platelet Morphology Comment NORMAL (NORMAL) Blood Urea Nitrogen 15 MG/DL (7-18) Creatinine 1.34 MG/DL (0.60-1.30) Random Glucose 67 MG/DL (74-106) Calcium Level 8.3 MG/DL (8.5-10.1) Sodium Level 136 MEQ/L (136-145) Potassium Level 4.8 MEQ/L (3.5-5.1) Chloride Level 105 MEQ/L (98-107) Carbon Dioxide Level 23.4 MEQ/L (21.0-32.0) Anion Gap 8 MEQ/L (5-15) Estimat Glomerular Filtration Rate 67 ML/MIN (>89) Result Diagram: 08/21/17 0718 08/21/17 0718 Felicia Sanchez MD August 21, 2017 10:25
[2017-08-21 12:00] VITALS: BP 104/65; PULSE 87; RESP 19; TEMP 98; O2SAT 93
--- NOTE | 2017-08-21 12:54 | HHI.PR ---
Subjective Remarks The patient was resting in bed. He stated that he is very constipated and wanted the medication he took prior to a colonoscopy. He said that he has been ambulating to the toilet. He would like extra pain medications to help him sleep at night. He complains of numbness in his feet. Objective Vitals Vital Signs Date Time Temp Pulse Resp B/P (MAP) Pulse Ox O2 Delivery O2 Flow Rate FiO2 08/21/17 08:00 98.1 95 17 139/93 (108) 91 08/21/17 04:00 96 18 139/96 (110) 94 08/21/17 00:00 98.0 87 18 110/72 (85) 94 08/20/17 20:00 97.9 85 20 136/85 (102) 96 08/20/17 16:00 98.2 90 18 122/67 (85) 94 I/O 08/20/17 08/20/17 08/20/17 08/21/17 08/21/17 08/21/17 07:00 15:00 23:00 07:00 15:00 23:00 Intake Total 970 ml 370 ml 820 ml Output Total 1370 ml 480 ml Balance -400 ml 370 ml 340 ml Intake Oral 240 ml 720 ml IV Total 730 ml 370 ml 100 ml Output Urine Total 1300 ml 450 ml Drainage Total 70 ml 30 ml # Voids 1 Result Diagram: 08/21/1718 08/21/17717 Objective Remarks General: No acute distress. Heart: Regular rate and rhythm. No murmur. Lungs: Clear to auscultation bilaterally. No wheezes, rales, or rhonchi. Breathing is nonlabored. Abdomen: Soft, nontender, nondistended. Positive bowel sounds. Extremities: No lower extremity edema. Psych: Alert, oriented, answers questions appropriately. Neuro: No focal deficits noted. 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 Appreciate neurosurgery, vascular surgery, infectious disease recommendations. Status post drainage of abscess on 08/14/17. Wound culture is negative. Mycobacterial and fungal cultures are pending. - Continue antibiotics. Bacteremia with Strep Anginosis - Continue antibiotics per infectious disease. Altered mental status Likely secondary to drug abuse. S/P lumbar puncture. Evaluated by psychiatry, patient is capable of making decisions. - resolved. Cocaine abuse Urine toxicology positive for cocaine. There was concern that the patient may have used cocaine while in the hospital as his urine drug screen was positive 8 days after admission. - cessation instruction. Right iliac artery aneurysm Patient noted to have a 2.9 cm aneurysm of the right internal iliac artery, possibly mycotic aneurysm. This was an incidental finding. He denies IV drug abuse. Appreciate vascular surgery recommendations. - No surgery planned at this time. Chronic kidney disease stage II with acute kidney injury. Creatinine improving. - Continue IV fluids. Constipation Continues. - mag citrate per pt request. Hypoglycemia Glucose has been low at times. - ADAT. Add Ensure. - start D5 if needed. DVT prophylaxis: SCDs. Jeovany Reddy DO August 21, 2017 12:54
[2017-08-21] MEDS ORDERED: MAGNESIUM CITRATE SOLN 300 ML BTL PO ONE (13:15)
[2017-08-21 16:00] VITALS: BP 114/67; PULSE 90; RESP 18; TEMP 98.8; O2SAT 96
[2017-08-21 20:00] VITALS: BP 135/89; PULSE 86; RESP 18; TEMP 98.3; O2SAT 96
[2017-08-22] MEDS: oxyCODONE/ACETAMINOPHEN 5 MG/325 MG TAB PO PRN ×2 (03:38→10:07)
[2017-08-22] MEDS: cefTRIAXone INJ 2,000 MG in SODIUM CHLORIDE 0.9% INJ 100 ML IV SCH ×2 (05:29→17:07)
[2017-08-22 08:00] VITALS: BP 121/78; PULSE 91; RESP 18; TEMP 98.1; O2SAT 97
[2017-08-22] MEDS: LACTIC ACID (AMMONIUM LACTATE) 12% LOTION 225 GM BTL TOPICAL SCH ×4 (09:00→20:24)
[2017-08-22] MEDS: POLYETHYLENE GLYCOL 17 GM PKG PO SCH (09:00)
[2017-08-22] MEDS: DOCUSATE SODIUM 50 MG/SENNA 8.6 MG TAB PO SCH ×2 (09:00→20:20)
[2017-08-22] MEDS: predniSONE 10 MG TAB PO SCH (10:06)
[2017-08-22] MEDS: cloNIDine HCL 0.1 MG TAB PO SCH (10:06)
[2017-08-22] MEDS: FAMOTIDINE 20 MG TAB PO SCH ×2 (10:06→20:19)
[2017-08-22] MEDS: SODIUM CHLORIDE 0.9% FLUSH 10 ML FLUSH IV FLUSH SCH ×2 (10:09→20:20)
--- NOTE | 2017-08-22 10:42 | HHI.NSPN ---
(Apolinar Argueta) History Chief Complaint: Some back pain during the night. (Apolinar Argueta) Interval History 08/06: When seen this morning the patient is asleep in bed. He does awaken to voice but is drowsy after that. He complains of pain to the lower back that does radiate down both lower extremities to the knees. He denies any numbness or tingling to the lower extremities. He does have low lumbar tenderness to palpation. He did not have any apparent lower extremity sensory deficits. His motor strength exam was incomplete due to patient not fully participating due to pain and drowsiness. 08/08/2017: Relatively awake and alert. Status post lumbar puncture 08/10: This afternoon the patient is asleep but awakens to voice. After that he is alert and readily interacts. He does say he has some pain to the low back and into the legs but he denies any numbness or tingling. No sensorimotor deficits are noted upon examination. 08/13: The patient is awake when seen this morning. He continues to have low back pain that goes into the legs but he denies any numbness or tingling. He has no evident sensorimotor deficits upon evaluation. 08/14: The patient went for a lateral oblique/retroperitoneal approach for drainage of lumbar retroperitoneal and bilateral psoas muscle abscess by Neurosurgery and General Surgery. Post-operatively the patient was admitted to the ISC unit for further care and monitoring. 08/15: The patient is awake in bed this afternoon when seen. He does have pain to the left lateral abdominal wall/flank at the surgical incisions. He denies any back or lower extremity pain. He has no numbness or tingling to the lower extremities. There are no evident sensorimotor deficits noted upon examination. 08/20: The patient is asleep when seen but awakens to voice. After that he is awake and alert. He denies any back or lower extremity pain. He has numbness to both feet but only when he stands, otherwise he has no numbness to the lower extremities. He had no numbness to the feet when examined and his muscle strength was normal. He did say that he had some incisional pain but only when he is getting up "or something like that." 08/21: When seen this morning the patient is awake in bed watching TV. He had no complaints but endorsed intermittent back pain. He also endorsed some mild tenderness at the left anterolateral abdominal wall surgical incision. The ALY drains were removed yesterday per General Surgery. There is no change noted in his physical exam. 08/22: This morning the patient is awake in bed watching TV. He did say he had some back pain during the night but had no other complaints. Upon evaluation his midline and lateral back were nontender and there was no change noted in his sensorimotor exam. (Apolinar Argueta) Exam Results 08/20/17 08/20/17 08/21/17 08/21/17 08/22/17 08/22/17 06:00 18:00 06:00 18:00 06:00 18:00 Intake Total 1970 ml 1190 ml 500 ml Output Total 691 ml 1180 ml 900 ml 1400 ml Balance 1279 ml 10 ml -400 ml -1400 ml Intake Oral 240 ml 720 ml 500 ml IV Total 1730 ml 470 ml Output Urine Total 600 ml 1150 ml 900 ml 1400 ml Drainage Total 91 ml 30 ml # Voids 1 # Bowel Movements 1 1 2 Vital Signs Date Time Temp Pulse Resp B/P (MAP) Pulse Ox O2 Delivery O2 Flow Rate FiO2 08/22/17 08:00 98.1 91 18 121/78 (92) 97 08/22/17 04:38 19 08/21/17 20:00 98.3 86 18 135/89 (104) 96 08/21/17 16:00 98.8 90 18 114/67 (83) 96 08/21/17 12:00 98.0 87 19 104/65 (78) 93 08/21/17 08:00 98.1 95 17 139/93 (108) 91 08/21/17 04:00 96 18 139/96 (110) 94 08/21/17 00:00 98.0 87 18 110/72 (85) 94 08/20/17 20:00 97.9 85 20 136/85 (102) 96 08/20/17 16:00 98.2 90 18 122/67 (85) 94 08/20/17 08:00 98.8 99 18 145/91 (109) 96 08/20/17 00:00 98.0 82 16 124/80 (95) 96 08/19/17 20:00 98.5 88 16 106/66 (79) 92 08/19/17 16:00 98.9 92 20 143/96 (112) 96 08/19/17 12:00 99.1 86 18 117/84 (95) 96 (Apolinar Argueta) Physical Examination GENERAL: Awake in bed watching TV. Affect slightly flat but readily interacts. No apparent distress. SKIN: Left anterolateral abdominal wall surgical incision well approximated w/ lamin [employer]. ALY drain insertion sites w/intact dressing w/shadowing noted. HEENT: Normocephalic, atraumatic. GASTROINTESTINAL: Abdomen soft, nontender, surgical incision NTTP, ALY drain insertion sites NTTP. NEUROLOGICAL: AAOx3. Speech clear & appropriate. Follows commands w/o difficulty. Sensation intact to light touch to the lower extremities. Muscle strength is 5/5 to the lower extremities. (Apolinar Argueta) Lab, Micro, Other Results Laboratory Tests Test 08/21/17 07:18 White Blood Count 5.8 TH/MM3 Red Blood Count 2.87 MIL/MM3 Hemoglobin 7.9 GM/DL Hematocrit 24.4 % Mean Corpuscular Volume 85.1 FL Mean Corpuscular Hemoglobin 27.7 PG Mean Corpuscular Hemoglobin Concent 32.6 % Red Cell Distribution Width 15.2 % Platelet Count 272 TH/MM3 Mean Platelet Volume 7.1 FL CBC Comment AUTO DIFF Differential Total Cells Counted 100 Neutrophils % (Manual) 56 % Lymphocytes % 18 % Monocytes % 16 % Eosinophils % 9 % Basophils % 1 % Neutrophils # (Manual) 3.2 TH/MM3 Differential Comment FINAL DIFF MANUAL Platelet Estimate NORMAL Platelet Morphology Comment NORMAL Blood Urea Nitrogen 15 MG/DL Creatinine 1.34 MG/DL Random Glucose 67 MG/DL Calcium Level 8.3 MG/DL Sodium Level 136 MEQ/L Potassium Level 4.8 MEQ/L Chloride Level 105 MEQ/L Carbon Dioxide Level 23.4 MEQ/L Anion Gap 8 MEQ/L Estimat Glomerular Filtration Rate 67 ML/MIN (Apolinar Argueta) Medical Decision Making Impression and Plan Impression: 1, 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 History of chronic low back pain. 3. L4-5 moderate spinal stenosis w/grade 1 spondylolisthesis 4. Prevertebral/retroperitoneal abscess 5. Possible L5 anterior osteomyelitis w/elevated sed rate and white count Postoperative Diagnosis: (1) Osteomyelitis (Neurosurgery) Lumbar discitis, osteomyelitis (Neurosurgery) Lumbar retroperitoneal-bilateral psoas abscess (Neurosurgery) Psoas abscess, paraspinal abscesses, sepsis. (General Surgery) The patient continues to do well. No sensorimotor deficits to lower extremities. Pain controlled. Afebrile the past 24 hrs. ALY drains d/c'd . No labs for today. Haemoglobin essentially stable yesterday w/slight improvement in renal function. MRI lumbar spine demonstrated increasing soft tissue signal to the back muscle from L1-L5. Increased marrow edema at L5 and to a lesser degree at L4. Increased disc space signal. Large bilateral psoas abscesses extending from L2 on the left into the iliopsoas and L3 on the right to the pelvis. Represents substantial progression. No significant epidural component. POD #8 () s/p: Lateral oblique approach for drainage of lumbar retroperitoneal and bilateral psoas muscle abscess (Neurosurgery) Retroperitoneal approach to the psoas muscle and drainage of psoas abscess and paraspinal abscess drainage. (General Surgery - Alyson Sanchez MD) Plan: Discussed the plan of care with the patient who verbalised his understanding and his questions were answered. Primary management per Hospitalist. Antibiotics per Infectious Disease. Mobilise patient w/assistance. Physical Therapy eval & tx. Will need at least 6 wks of IV antibiotics and follow-up imaging before consideration of any surgical intervention. (Apolinar Argueta) Apolinar Argueta August 22, 2017 10:42 Guero Felipe MD August 23, 2017 15:46
[2017-08-22 12:00] VITALS: BP 112/71; PULSE 92; RESP 17; TEMP 98.3; O2SAT 94
[2017-08-22] MEDS ORDERED: DEXT 5%-NACL 0.9% 1000 ML INJ 1,000 ML IV SCH (15:45)
[2017-08-22 16:00] VITALS: BP 130/87; PULSE 84; RESP 17; TEMP 97.9; O2SAT 95
--- NOTE | 2017-08-22 16:02 | HHI.PR ---
Subjective Remarks The patient was upset that he could not have visitors. He says he will not take any substances because he wants to get better. He states that he has left lower back pain every once in a while. Seen alongside with palliative care. Discussed with nursing. Objective Vitals Vital Signs Date Time Temp Pulse Resp B/P (MAP) Pulse Ox O2 Delivery O2 Flow Rate FiO2 08/22/17 12:00 98.3 92 17 112/71 (85) 94 08/22/17 08:00 98.1 91 18 121/78 (92) 97 08/22/17 04:38 19 08/21/17 20:00 98.3 86 18 135/89 (104) 96 08/21/17 16:00 98.8 90 18 114/67 (83) 96 I/O 08/21/17 08/21/17 08/21/17 08/22/17 08/22/17 08/22/17 07:00 15:00 23:00 07:00 15:00 23:00 Intake Total 500 ml Output Total 900 ml 1400 ml Balance -400 ml -1400 ml Intake Oral 500 ml Output Urine Total 900 ml 1400 ml # Voids 1 # Bowel Movements 1 2 Result Diagram: 08/21/17 0718 08/21/1718 Imaging Last Impressions Chest X-Ray 08/15/17 0000 Signed Impressions: Service Date/Time: Tuesday, August 15, 2017 11:34 - CONCLUSION: Mild compensated cardiomegaly Roly Reina MD FACR Lumbar Spine MRI 08/08/17 0000 Signed Impressions: Service Date/Time: Tuesday, August 08, 2017 13:37 - CONCLUSION: Substantial progression as described above. Roly Reina MD FACR Lumbar Puncture Fluoroscopy 08/08/17 0000 Signed Impressions: Service Date/Time: Tuesday, August 08, 2017 15:42 - CONCLUSION: Uncomplicated fluoroscopically guided lumbar puncture. Fady Chan MD Needle Biopsy/Aspiration X-Ray 07/31/17 0000 Signed Impressions: Service Date/Time: Monday, July 31, 2017 13:29 - CONCLUSION: Uncomplicated needle biopsy of the L4/L5 disc space as above. Candelario Reina MD Abdomen/Pelvis CT 07/29/17 0000 Signed Impressions: Service Date/Time: Saturday, July 29, 2017 22:14 - CONCLUSION: 1. Significant new prevertebral soft tissue fullness and stranding centered at the L5 level. There is associated sclerosis and erosive changes in the anterior L5 vertebral body which appear unchanged from recent exams. Overall, findings are concerning for discitis and osteomyelitis. Consider repeat MRI examination for further evaluation. 2. 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 However, evaluation is significantly limited due to lack of IV contrast on this exam. This was not present on remote prior CT exam. A mycotic aneurysm cannot be entirely excluded. Contrast enhanced examination would be greatly beneficial in further evaluation. 3. Nodular appearing liver contour consistent with cirrhosis. 4. IVC filter in place. 5. Cholelithiasis. Tanner Jones MD Objective Remarks General: No acute distress. Heart: Regular rate and rhythm. No murmur. Lungs: Clear to auscultation bilaterally. No wheezes, rales, or rhonchi. Breathing is nonlabored. Abdomen: Soft, nontender, nondistended. Positive bowel sounds. Extremities: No lower extremity edema. Psych: Alert, oriented, answers questions appropriately. Neuro: No focal deficits noted. Back: Tender to palpation along left lower paraspinal musculature near buttocks. 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 Appreciate neurosurgery, vascular surgery, infectious disease recommendations. Status post drainage of abscess on 08/14/17. Wound culture is negative. Mycobacterial and fungal cultures are pending. Bacteremia with Strep Anginosis. - Continue antibiotics per ID. - follow up with neurosurgery. Altered mental status Likely secondary to drug abuse. S/P lumbar puncture. Evaluated by psychiatry, patient is capable of making decisions. - resolved. Cocaine abuse Urine toxicology positive for cocaine. There was concern that the patient may have used cocaine while in the hospital as his urine drug screen was positive 8 days after admission. - cessation instruction. - will allow visitors again. Right iliac artery aneurysm Patient noted to have a 2.9 cm aneurysm of the right internal iliac artery, possibly mycotic aneurysm. This was an incidental finding. He denies IV drug abuse. Appreciate vascular surgery recommendations. - No surgery planned at this time. Chronic kidney disease stage II with acute kidney injury. Creatinine improving. - Continue IV fluids. Constipation - resolved s/p mag citrate. Hypoglycemia Glucose has been low at times. - ADAT. Add Ensure. - start D5. Anemia Seems chronic. - check anemia labs, Hemoccult. DVT prophylaxis: SCDs. Jeovany Reddy DO August 22, 2017 16:02
--- NOTE | 2017-08-22 17:12 | HHI.HCPN ---
Reason for visit a. To assist with evaluation and management of symptoms including: Pain, anxiety,debility b. To assist medical decision maker(s) with: better understanding of current medical conditions; weighing benefits/burdens of medical treatment options; making medical treatment decisions. . Subjective/Interval History Follow-up medically necessary for symptom management. Patient seen and examined in his room. Dr. Reddy also present during visit. Patient speaking on the cellphone with no signs of distress or discomfort. Patient currently denies pain, though he explained how he experienced pain after sitting for 1-1/2 hours. Patient did not have his brace on. Verbalized relief of pain after he takes pain medication. Patient states that pain has been much better controlled ever since he had surgery. Pain is managed with oxycodone/ acetaminophen . Patient has required 4 prn doses in the past 24hrs. Last hydromorphone dose for breakthrough pain was given on 08/17/17. Denies feeling anxious-last dose Lorazepam was given 08/14/17.. Patient requesting that visitors be allowed to come in to see him since he feels lonely. Patient has been able to ambulate with walker to use the toilet. He has been having problems with constipation and he had x3 bowel movements. Interim course: * Patient underwent lateral oblique approach for drainage of lumbar retroperitoneal and bilateral psoas muscle abscess- 08/14/17(Neurosurgery ) * Patient underwent Retroperitoneal approach to the psoas muscle and drainage of psoas abscess and paraspinal abscess drainage-08/14/17(General Surgery -Dr. Sanchez) * Culture from abscess negative for any growth. * Laboratory workup today revealing WBC 5.8, hemoglobin 7.9, hematocrit 24.4, platelet count 272, potassium 4.8, BUN/creatinine 15/1.34, random glucose 67 Infectious disease following with patient. Patient will require long-term intravenous antibiotic therapy. Case management assisting with placement to a fdc facility where patient can be safely monitored during treatment. Patient is agreeable to plan and he mentioned that there was a automobile rental representative who came to see him earlier on regarding placement. Patient requesting that he has visitors come to see him and he is willing to provide names of persons who should not be allowed to visit with him because they use cocaine. Patient mentioned that he would want to live and is not ready to yet and he will comply with the rules and not bring in people into the hospital who would give him access to cocaine. . Family/friend interactions No family at bedside. . Advance Directives Living Will: Never completed Health Care Surrogate: Copy in medical record Durable Power of Adjunct Professor Of Voice: Never completed Advance Directive Specifics Date completed: 08/09/2017 . Health Care Surrogate(s): Healthcare surrogate-Friend- Jennifer Kendrick- [phone] Alternate healthcare surrogate -Son-Kalyan Gee Fp-[phone]/ 3rd choice- If the above-mentioned are not able to serve, patient designated his ex- -Kelly Gee as his second Alternate healthcare surrogate . Documented care wishes: No written documentation of health care goals/preferences . Objective Vital Signs Date Time Temp Pulse Resp B/P (MAP) Pulse Ox O2 Delivery O2 Flow Rate FiO2 08/22/17 16:00 97.9 84 17 130/87 (101) 95 08/22/17 12:00 98.3 92 17 112/71 (85) 94 08/22/17 08:00 98.1 91 18 121/78 (92) 97 08/22/17 04:38 19 08/21/17 20:00 98.3 86 18 135/89 (104) 96 Intake & Output 08/22/17 08/22/17 07:00 19:00 Output Total 1400 ml Balance -1400 ml Output Urine Total 1400 ml # Bowel Movements 2 Physical Exam CONSTITUTIONAL/GENERAL: This is an adequately nourished patient, in no apparent distress TUBES/LINES/DRAINS:PIV SKIN: Dry. No jaundice, rashes, or lesions. No wounds seen anteriorly. Skin temperature appropriate. Not diaphoretic. EYES: Pupils equal. Extraocular motions intact. No scleral icterus. No injection or drainage. Fundi not examined. ENT: Hearing grossly normal. Nose without bleeding or purulent drainage. Moist oral mucosa NECK: Trachea midline. Supple, nontender. CARDIOVASCULAR: S1, S2 normal, no audible murmurs, gallops, or rubs. No JVD. RESPIRATORY/CHEST: Symmetric, unlabored respirations. Clear to auscultation. No wheezes, rales, or rhonchi. GASTROINTESTINAL: Abdomen soft, non-tender, nondistended. No guarding. Bowel sounds present. GENITOURINARY: Without palpable bladder distension. MUSCULOSKELETAL: Extremities without clubbing, cyanosis, or edema. Tenderness over low back. NEUROLOGICAL: Awake and alert. Oriented to self, place and situation. Follows commands with all 4 extremities. PSYCHIATRIC: No obvious anxiety/depression. No apparent hallucinations or other psychotic thought process. . Diagnostic Tests Laboratory Laboratory Tests Test 08/21/17 07:18 White Blood Count 5.8 TH/MM3 (4.0-11.0) Red Blood Count 2.87 MIL/MM3 (4.50-5.90) Hemoglobin 7.9 GM/DL (13.0-17.0) Hematocrit 24.4 % (39.0-51.0) Mean Corpuscular Volume 85.1 FL (80.0-100.0) Mean Corpuscular Hemoglobin 27.7 PG (27.0-34.0) Mean Corpuscular Hemoglobin Concent 32.6 % (32.0-36.0) Red Cell Distribution Width 15.2 % (11.6-17.2) Platelet Count 272 TH/MM3 (150-450) Mean Platelet Volume 7.1 FL (7.0-11.0) CBC Comment AUTO DIFF Differential Total Cells Counted 100 Neutrophils % (Manual) 56 % (16-70) Lymphocytes % 18 % (9-44) Monocytes % 16 % (0-8) Eosinophils % 9 % (0-4) Basophils % 1 % (0-2) Neutrophils # (Manual) 3.2 TH/MM3 (1.8-7.7) Differential Comment FINAL DIFF MANUAL Platelet Estimate NORMAL (NORMAL) Platelet Morphology Comment NORMAL (NORMAL) Blood Urea Nitrogen 15 MG/DL (7-18) Creatinine 1.34 MG/DL (0.60-1.30) Random Glucose 67 MG/DL (74-106) Calcium Level 8.3 MG/DL (8.5-10.1) Sodium Level 136 MEQ/L (136-145) Potassium Level 4.8 MEQ/L (3.5-5.1) Chloride Level 105 MEQ/L (98-107) Carbon Dioxide Level 23.4 MEQ/L (21.0-32.0) Anion Gap 8 MEQ/L (5-15) Estimat Glomerular Filtration Rate 67 ML/MIN (>89) Result Diagram: 08/21/1718 08/21/1718 Imaging Last Impressions Chest X-Ray 08/15/17 0000 Signed Impressions: Service Date/Time: Tuesday, August 15, 2017 11:34 - CONCLUSION: Mild compensated cardiomegaly Roly Reina MD FACR Lumbar Spine MRI 08/08/17 0000 Signed Impressions: Service Date/Time: Tuesday, August 08, 2017 13:37 - CONCLUSION: Substantial progression as described above. Roly Reina MD FACR Lumbar Puncture Fluoroscopy 08/08/17 0000 Signed Impressions: Service Date/Time: Tuesday, August 08, 2017 15:42 - CONCLUSION: Uncomplicated fluoroscopically guided lumbar puncture. Fady Chan MD Needle Biopsy/Aspiration X-Ray 07/31/17 0000 Signed Impressions: Service Date/Time: Monday, July 31, 2017 13:29 - CONCLUSION: Uncomplicated needle biopsy of the L4/L5 disc space as above. Candelario Reina MD Abdomen/Pelvis CT 07/29/17 0000 Signed Impressions: Service Date/Time: Saturday, July 29, 2017 22:14 - CONCLUSION: 1. Significant new prevertebral soft tissue fullness and stranding centered at the L5 level. There is associated sclerosis and erosive changes in the anterior L5 vertebral body which appear unchanged from recent exams. Overall, findings are concerning for discitis and osteomyelitis. Consider repeat MRI examination for further evaluation. 2. 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 However, evaluation is significantly limited due to lack of IV contrast on this exam. This was not present on remote prior CT exam. A mycotic aneurysm cannot be entirely excluded. Contrast enhanced examination would be greatly beneficial in further evaluation. 3. Nodular appearing liver contour consistent with cirrhosis. 4. IVC filter in place. 5. Cholelithiasis. Tanner Jones MD Procedures 08/08/17 needle biopsy of the L4/L5 disc space/aspiration x-ray 08/14/17-lateral oblique approach for drainage of lumbar retroperitoneal and bilateral psoas muscle abscess by neurosurgery 08/14/17-Retroperitoneal approach to the psoas muscle and drainage of psoas abscess and paraspinal abscess drainage by general surgery . Assessment and Plan Disease Oriented Problem List: (1) Osteomyelitis (2) Cocaine abuse (3) Mycotic aneurysm (4) CKD (chronic kidney disease) stage 3, GFR 30-59 ml/min Comment: Improving. . (5) Hypertension (6) Rheumatoid arthritis Symptom Scale: (1) Pain 0-10 Scale: 10 Comment: All his pain complaints are low back. Inadequately helped by current regimen. Pain normally 9-10 decreasing to 8-9 after parenteral hydromorphone. . . (2) Anxiety Comment: Patient reported to psychiatry that he was feeling anxious . (3) Debility Comment: Progressive . Pertinent Non-Medical Issues Psychosocial:[place] Patient is . Patient's highest level of education is high school. He is currently unemployed and disabled. Patient has 1 son Gerard Biggs Jr. He has been living with his nephew Jennifer Kendrick for the past 4 years. Spiritual: Patient is Jainism Legal: No living will. Health care surrogate designation completed 08/09/17 -- he wants his friend Jennifer Manuel to serve. Ethical issues impacting care: None identified at this time . Important Contacts Mireille Rodriguez (Health care surrogate and close friend) -[phone]/ (he has been living with patient for the past 4 years) Kalyan Gee Jr (son and alternate HCS) - [phone] Cell/[phone] work Kelly Gee (ex- and 2nd alternate HCS) Patricia Joy ( of Jennifer Manuel) [phone] Brother- Miles Gee [phone] PATIENT HAS GIVEN PERMISSION TO DISCUSS DETAILS OF HIS CASE AND CARE WITH THE ABOVE. . . Prognosis Mr. Gee is a 57-year-old male with a past medical history significant for chronic back pain, lumbar osteomyelitis and discitis s/p L4-L5 laminectomy 2014 , rheumatoid arthritis, hyperlipidemia, chronic kidney stage III, cocaine abuse and tobacco abuse. Patient presented to the ER on 07/29/17 with complaints of severe back pain. Diagnostic tests revealed lumbar osteomyelitis with retroperitoneal/prevertebral abscess. Clinical course complicated with pain, anxiety and patient's of care and medication. Imaging has shown worsening infection over course of hospitalization. Patient underwent lateral oblique approach for drainage of lumbar retroperitoneal and bilateral psoas muscle abscess on 08/14/17. He now requires rodent exterminator intravenous antibiotic therapy. Patient will need placement while going through antibiotic therapy and if he is compliant with treatment he will have a good prognosis. . Code Status: Full Code Plan PLAN: CODE STATUS: Full code Legal decision maker: Patient has been deemed capacitated to participate in medical decision making by psychiatry on 08/08/17. In the event that he is incapacitated patient has designated his friend Jennifer Kendrick to serve as his health care surrogate, and his son Gerard Hull Jr as his alternate healthcare surrogate and if the above mentioned are not able to serve, he chose his ex- Kelly Gee as his other alternate Healthcare Surrogate. Goals: Patient underwent lateral oblique approach for drainage of lumbar retroperitoneal and bilateral psoas muscle abscess on 08/14/17 and reports that he is feeling much better than he did when he came in. Patient verbalizes that he still wants to live and is willing to do what it takes to get better. His goals remain aggressive. Case management working with patient for a safe placement during his [facility] intravenous antibiotic therapy. SYMPTOMS: * Pain: Patient complaining of severe lower back pain. Patient had osteomyelitis and is s/p drainage of lumbar retroperitoneal and bilateral psoas muscle abscess 08/14/17. Patient has required oxycodone/acetaminophen 5/325 4 prn doses in the past 24hrs. Last hydromorphone dose for breakthrough pain was given on 08/17/17. No further recommendations. * Anxiety: Patient reported to psychiatry that he feels anxious. Has lorazepam ordered q 2 hours prn. Appears to be adequate. No further recommendation at this time. * Debility: Patient is being progressively getting weaker and not able to ambulate long distances at home due to severe back pain. According to family he has lost a few pounds in the past weeks leading up to admission. Ambulated at home with a cane. Physical therapy on board and patient has been able to ambulate with a walker OOB to the bathroom and sits up on recliner sometimes. == Palliative care will continue to follow to assist with symptom management and to further clarify goals of medical treatment as the clinical course evolves. . Attestation To help prompt me to consider important information that might be impacting today's encounter and assessment, information from prior notes written by myself or my colleagues may have been "brought forward" into today's note. My signature on this note, however, is an attestation that I personally performed the exam, history, and/or decision-making noted today, and, unless otherwise indicated, the interactions with patient, family, and staff as well as the review of records all occurred today. I also attest that the listed assessment and stated plan reflect my best clinical judgment today based on the combination of historical information, prior notes, and today's exam/ interactions. When time spent is documented, it refers only to time spent today by the signer, or if indicated, combined time spent today by collaborating physician/nurse practitioner. Erasmo Vieyra August 22, 2017 17:12
[2017-08-22 19:50] LABS: % SATURATION IRON PROFILE 16.6 % (20-50); IRON (FE) 32 MCG/DL (65-175); TOTAL IRON BINDING CAPACITY 193 MCG/DL (250-450)
[2017-08-22 20:00] VITALS: BP 108/65; PULSE 97; RESP 19; TEMP 97.9; O2SAT 95
[2017-08-22 20:15] LABS: FERRITIN 255 NG/ML (26-388); FOLATE 14.4 NG/ML (3.1-17.5)
[2017-08-23] VITALS: BP 110/62; PULSE 82; RESP 19; TEMP 97.5; O2SAT 94
[2017-08-23] MEDS: oxyCODONE/ACETAMINOPHEN 5 MG/325 MG TAB PO PRN ×4 (01:18→17:31)
[2017-08-23] MEDS: cefTRIAXone INJ 2,000 MG in SODIUM CHLORIDE 0.9% INJ 100 ML IV SCH ×2 (04:49→19:56)
[2017-08-23 08:02] VITALS: BP 130/84; PULSE 90; RESP 17; TEMP 99.1; O2SAT 95
[2017-08-23] MEDS: FAMOTIDINE 20 MG TAB PO SCH ×2 (08:05→19:56)
[2017-08-23] MEDS: DOCUSATE SODIUM 50 MG/SENNA 8.6 MG TAB PO SCH ×2 (08:05→19:56)
[2017-08-23] MEDS: predniSONE 10 MG TAB PO SCH (08:05)
[2017-08-23] MEDS: SODIUM CHLORIDE 0.9% FLUSH 10 ML FLUSH IV FLUSH SCH ×2 (08:06→19:56)
[2017-08-23] MEDS: POLYETHYLENE GLYCOL 17 GM PKG PO SCH (08:06)
[2017-08-23] MEDS: LACTIC ACID (AMMONIUM LACTATE) 12% LOTION 225 GM BTL TOPICAL SCH ×4 (08:06→19:57)
[2017-08-23] MEDS: cloNIDine HCL 0.1 MG TAB PO SCH (08:07)
--- NOTE | 2017-08-23 09:18 | HHI.NSPN ---
(Apolinar Argueta) History Chief Complaint: Doing alright. (Apolinar Argueta) Interval History 08/06: When seen this morning the patient is asleep in bed. He does awaken to voice but is drowsy after that. He complains of pain to the lower back that does radiate down both lower extremities to the knees. He denies any numbness or tingling to the lower extremities. He does have low lumbar tenderness to palpation. He did not have any apparent lower extremity sensory deficits. His motor strength exam was incomplete due to patient not fully participating due to pain and drowsiness. 08/08/2017: Relatively awake and alert. Status post lumbar puncture 08/10: This afternoon the patient is asleep but awakens to voice. After that he is alert and readily interacts. He does say he has some pain to the low back and into the legs but he denies any numbness or tingling. No sensorimotor deficits are noted upon examination. 08/13: The patient is awake when seen this morning. He continues to have low back pain that goes into the legs but he denies any numbness or tingling. He has no evident sensorimotor deficits upon evaluation. 08/14: The patient went for a lateral oblique/retroperitoneal approach for drainage of lumbar retroperitoneal and bilateral psoas muscle abscess by Neurosurgery and General Surgery. Post-operatively the patient was admitted to the [facility] unit for further care and monitoring. 08/15: The patient is awake in bed this afternoon when seen. He does have pain to the left lateral abdominal wall/flank at the surgical incisions. He denies any back or lower extremity pain. He has no numbness or tingling to the lower extremities. There are no evident sensorimotor deficits noted upon examination. 08/20: The patient is asleep when seen but awakens to voice. After that he is awake and alert. He denies any back or lower extremity pain. He has numbness to both feet but only when he stands, otherwise he has no numbness to the lower extremities. He had no numbness to the feet when examined and his muscle strength was normal. He did say that he had some incisional pain but only when he is getting up "or something like that." 08/21: When seen this morning the patient is awake in bed watching TV. He had no complaints but endorsed intermittent back pain. He also endorsed some mild tenderness at the left anterolateral abdominal wall surgical incision. The ALY drains were removed yesterday per General Surgery. There is no change noted in his physical exam. 08/22: This morning the patient is awake in bed watching TV. He did say he had some back pain during the night but had no other complaints. Upon evaluation his midline and lateral back were nontender and there was no change noted in his sensorimotor exam. 08/23: The patient is awake in bed watching TV this morning. He had no complaints and states he is doing alright. He has not had any further back pain since yesterday. His exam is unremarkable from yesterday. (Apolinar Argueta) Exam Results 08/21/17 08/21/17 08/22/17 08/22/17 08/23/17 08/23/17 06:00 18:00 06:00 18:00 06:00 18:00 Intake Total 500 ml 800 ml 1480 ml Output Total 900 ml 1400 ml 800 ml 1025 ml Balance -400 ml -1400 ml 0 ml 455 ml Intake Oral 500 ml 700 ml 480 ml IV Total 100 ml 1000 ml Output Urine Total 900 ml 1400 ml 800 ml 1025 ml # Voids 1 # Bowel Movements 1 2 1 0 Vital Signs Date Time Temp Pulse Resp B/P (MAP) Pulse Ox O2 Delivery O2 Flow Rate FiO2 08/23/17 08:02 99.1 90 17 130/84 (99) 95 08/23/17 00:00 97.5 82 19 110/62 (78) 94 08/22/17 20:00 97.9 97 19 108/65 (79) 95 08/22/17 16:00 97.9 84 17 130/87 (101) 95 08/22/17 12:00 98.3 92 17 112/71 (85) 94 08/22/17 08:00 98.1 91 18 121/78 (92) 97 08/22/17 04:38 19 08/21/17 20:00 98.3 86 18 135/89 (104) 96 5/22/18 16:00 98.8 90 18 114/67 (83) 96 08/21/17 12:00 98.0 87 19 104/65 (78) 93 08/21/17 08:00 98.1 95 17 139/93 (108) 91 08/21/17 04:00 96 18 139/96 (110) 94 08/21/17 00:00 98.0 87 18 110/72 (85) 94 08/20/17 20:00 97.9 85 20 136/85 (102) 96 08/20/17 16:00 98.2 90 18 122/67 (85) 94 (Apolinar Argueta) Physical Examination GENERAL: Awake in bed watching TV. Affect essentially normal & readily interacts. No apparent distress. SKIN: Left anterolateral abdominal wall surgical incision well approximated w/ lamin ROZINA. ALY drain insertion sites w/intact dressing w/shadowing noted. HEENT: Normocephalic, atraumatic. GASTROINTESTINAL: Abdomen soft, nontender, surgical incision NTTP, ALY drain insertion sites NTTP. NEUROLOGICAL: AAOx3. Speech clear & appropriate. Follows commands w/o difficulty. Sensation intact to light touch to the lower extremities. Muscle strength is 5/5 to the lower extremities. (Apolinar Argueta) Lab, Micro, Other Results Laboratory Tests Test 08/21/17 07:18 White Blood Count 5.8 TH/MM3 Red Blood Count 2.87 MIL/MM3 Hemoglobin 7.9 GM/DL Hematocrit 24.4 % Mean Corpuscular Volume 85.1 FL Mean Corpuscular Hemoglobin 27.7 PG Mean Corpuscular Hemoglobin Concent 32.6 % Red Cell Distribution Width 15.2 % Platelet Count 272 TH/MM3 Mean Platelet Volume 7.1 FL CBC Comment AUTO DIFF Differential Total Cells Counted 100 Neutrophils % (Manual) 56 % Lymphocytes % 18 % Monocytes % 16 % Eosinophils % 9 % Basophils % 1 % Neutrophils # (Manual) 3.2 TH/MM3 Differential Comment FINAL DIFF MANUAL Platelet Estimate NORMAL Platelet Morphology Comment NORMAL Blood Urea Nitrogen 15 MG/DL Creatinine 1.34 MG/DL Random Glucose 67 MG/DL Calcium Level 8.3 MG/DL Sodium Level 136 MEQ/L Potassium Level 4.8 MEQ/L Chloride Level 105 MEQ/L Carbon Dioxide Level 23.4 MEQ/L Anion Gap 8 MEQ/L Estimat Glomerular Filtration Rate 67 ML/MIN Iron Level 32 MCG/DL Total Iron Binding Capacity 193 MCG/DL Percent Iron Saturation 16.6 % Ferritin 255 NG/ML Vitamin B12 Level 592 PG/ML Folate 14.4 NG/ML (Apolinar Argueta) Medical Decision Making Impression and Plan Impression: 1, 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 History of chronic low back pain. 3. L4-5 moderate spinal stenosis w/grade 1 spondylolisthesis 4. Prevertebral/retroperitoneal abscess 5. Possible L5 anterior osteomyelitis w/elevated sed rate and white count Postoperative Diagnosis: (1) Osteomyelitis (Neurosurgery) Lumbar discitis, osteomyelitis (Neurosurgery) Lumbar retroperitoneal-bilateral psoas abscess (Neurosurgery) Psoas abscess, paraspinal abscesses, sepsis. (General Surgery) The patient continues to do well. He has no sensorimotor deficits to lower extremities. No pain to the back or surgical incision. Afebrile the past 24 hrs. ALY drains d/c'd . No labs for today. Haemoglobin essentially stable yesterday w/slight improvement in renal function. MRI lumbar spine demonstrated increasing soft tissue signal to the back muscle from L1-L5. Increased marrow edema at L5 and to a lesser degree at L4. Increased disc space signal. Large bilateral psoas abscesses extending from L2 on the left into the iliopsoas and L3 on the right to the pelvis. Represents substantial progression. No significant epidural component. POD #9 () s/p: Lateral oblique approach for drainage of lumbar retroperitoneal and bilateral psoas muscle abscess (Neurosurgery) Retroperitoneal approach to the psoas muscle and drainage of psoas abscess and paraspinal abscess drainage. (General Surgery - Alyson Sanchez MD) Plan: Discussed the plan of care with the patient who verbalised his understanding and his questions were answered. Primary management per Hospitalist. Antibiotics per Infectious Disease. Mobilise patient w/assistance. Physical Therapy eval & tx. Will need at least 6 wks of IV antibiotics and follow-up imaging before consideration of any surgical intervention w/instrumentation. Plan to d/c lamin this weekend. (Apolinar Argueta) Attending Statement The exam, history, and the medical decision-making described in the above note were completed with the assistance of the mid-level provider. I reviewed and agree with the findings presented. I attest that I had a [id number] encounter with the patient on the same day, and personally performed and documented my assessment and findings in the medical record. (Guero Felipe MD) Apolinar Argueta August 23, 2017 09:18 Guero Felipe MD August 23, 2017 15:47
[2017-08-23 12:00] VITALS: BP 128/80; PULSE 93; RESP 18; TEMP 97.6; O2SAT 93
[2017-08-23 16:00] VITALS: BP 126/73; PULSE 87; RESP 17; TEMP 97.3; O2SAT 93
--- NOTE | 2017-08-23 16:23 | HHI.PR ---
Subjective Remarks The patient was happy that he was allowed to have visitors again. He had questions pertaining to his surgery. He said he was supposed to get some lamin removed this weekend. No acute complaints. Objective Vitals Vital Signs Date Time Temp Pulse Resp B/P (MAP) Pulse Ox O2 Delivery O2 Flow Rate FiO2 08/23/17 16:00 97.3 87 17 126/73 (90) 93 08/23/17 12:00 97.6 93 18 128/80 (96) 93 08/23/17 08:02 99.1 90 17 130/84 (99) 95 08/23/17 00:00 97.5 82 19 110/62 (78) 94 08/22/17 20:00 97.9 97 19 108/65 (79) 95 I/O 08/22/17 08/22/17 08/22/17 08/23/17 08/23/17 08/23/17 07:00 15:00 23:00 07:00 15:00 23:00 Intake Total 800 ml 1480 ml Output Total 1400 ml 925 ml 900 ml Balance -1400 ml -125 ml 580 ml Intake Oral 700 ml 480 ml IV Total 100 ml 1000 ml Output Urine Total 1400 ml 925 ml 900 ml # Bowel Movements 2 1 0 Result Diagram: 08/21/1718 08/21/17717 Imaging Last Impressions Chest X-Ray 08/15/17 0000 Signed Impressions: Service Date/Time: Tuesday, August 15, 2017 11:34 - CONCLUSION: Mild compensated cardiomegaly Roly Reina MD FACR Lumbar Spine MRI 08/08/17 0000 Signed Impressions: Service Date/Time: Tuesday, August 08, 2017 13:37 - CONCLUSION: Substantial progression as described above. Roly Reina MD FACR Lumbar Puncture Fluoroscopy 08/08/17 0000 Signed Impressions: Service Date/Time: Tuesday, August 08, 2017 15:42 - CONCLUSION: Uncomplicated fluoroscopically guided lumbar puncture. Fady Chan MD Needle Biopsy/Aspiration X-Ray 07/31/17 0000 Signed Impressions: Service Date/Time: Monday, July 31, 2017 13:29 - CONCLUSION: Uncomplicated needle biopsy of the L4/L5 disc space as above. Candelario Reina MD Abdomen/Pelvis CT 07/29/17 0000 Signed Impressions: Service Date/Time: Saturday, July 29, 2017 22:14 - CONCLUSION: 1. Significant new prevertebral soft tissue fullness and stranding centered at the L5 level. There is associated sclerosis and erosive changes in the anterior L5 vertebral body which appear unchanged from recent exams. Overall, findings are concerning for discitis and osteomyelitis. Consider repeat MRI examination for further evaluation. 2. 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 However, evaluation is significantly limited due to lack of IV contrast on this exam. This was not present on remote prior CT exam. A mycotic aneurysm cannot be entirely excluded. Contrast enhanced examination would be greatly beneficial in further evaluation. 3. Nodular appearing liver contour consistent with cirrhosis. 4. IVC filter in place. 5. Cholelithiasis. Tanner Jones MD Objective Remarks General: No acute distress. Heart: Regular rate and rhythm. No murmur. Lungs: Clear to auscultation bilaterally. No wheezes, rales, or rhonchi. Breathing is nonlabored. Abdomen: Soft, nontender, nondistended. Positive bowel sounds. Extremities: No lower extremity edema. Psych: Alert, oriented, answers questions appropriately. Neuro: No focal deficits noted. Back: Tender to palpation along left lower paraspinal musculature near buttocks. 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 Appreciate neurosurgery, vascular surgery, infectious disease recommendations. Status post drainage of abscess on 08/14/17. Wound culture is negative. Mycobacterial and fungal cultures are pending. Bacteremia with Strep Anginosis. - Continue antibiotics per ID. - follow up with neurosurgery. To remove lamin this weekend. Altered mental status Likely secondary to drug abuse. S/P lumbar puncture. Evaluated by psychiatry, patient is capable of making decisions. - resolved. Cocaine abuse Urine toxicology positive for cocaine. There was concern that the patient may have used cocaine while in the hospital as his urine drug screen was positive 8 days after admission. - cessation instruction. - will allow visitors again. Right iliac artery aneurysm Patient noted to have a 2.9 cm aneurysm of the right internal iliac artery, possibly mycotic aneurysm. This was an incidental finding. He denies IV drug abuse. Appreciate vascular surgery recommendations. - No surgery planned at this time. Chronic kidney disease stage II with acute kidney injury. Creatinine improving. - d/c IV fluids. Constipation - resolved s/p mag citrate. Hypoglycemia Glucose has been low at times. - ADAT. Add Ensure. - follow BMP. Anemia Seems chronic. - check Hemoccult. - follow CBC. DVT prophylaxis: SCDs. Jeovany Reddy DO August 23, 2017 16:23
[2017-08-23 20:00] VITALS: BP 138/91; PULSE 95; RESP 18; TEMP 97.2; O2SAT 94
[2017-08-24] VITALS: BP 138/85; PULSE 87; RESP 18; TEMP 97.9; O2SAT 96
[2017-08-24] MEDS: oxyCODONE/ACETAMINOPHEN 5 MG/325 MG TAB PO PRN ×3 (02:52→12:20)
[2017-08-24 05:46] VITALS: BP 113/77; PULSE 136; RESP 22; O2SAT 95
[2017-08-24] MEDS: POLYETHYLENE GLYCOL 17 GM PKG PO SCH ×3 (07:57→09:00)
[2017-08-24] MEDS: cloNIDine HCL 0.1 MG TAB PO SCH (07:58)
[2017-08-24] MEDS: CYCLOBENZAPRINE HCL 10 MG TAB PO PRN ×3 (07:58→22:14)
[2017-08-24] MEDS: DOCUSATE SODIUM 50 MG/SENNA 8.6 MG TAB PO SCH ×2 (07:58→22:14)
[2017-08-24] MEDS: FAMOTIDINE 20 MG TAB PO SCH ×2 (07:59→22:14)
[2017-08-24] MEDS: predniSONE 10 MG TAB PO SCH (07:59)
[2017-08-24] MEDS: SODIUM CHLORIDE 0.9% FLUSH 10 ML FLUSH IV FLUSH SCH ×2 (07:59→22:14)
[2017-08-24 08:00] VITALS: BP 131/87; PULSE 86; RESP 19; TEMP 97.6; O2SAT 95
[2017-08-24] MEDS: LACTIC ACID (AMMONIUM LACTATE) 12% LOTION 225 GM BTL TOPICAL SCH ×4 (09:00→22:13)
[2017-08-24 09:04] LABS: HEMATOCRIT 24.9 % (39.0-51.0); HEMOGLOBIN 7.9 GM/DL (13.0-17.0); MEAN CELL VOLUME 87.6 FL (80.0-100.0); MEAN CORPUSCULAR HEMOGLOBIN 27.7 PG (27.0-34.0); MEAN CORPUSCULAR HGB CONC 31.7 % (32.0-36.0); MEAN PLATELET VOLUME 6.8 FL (7.0-11.0); PLATELET COUNT 277 TH/MM3 (150-450); RED BLOOD COUNT 2.85 MIL/MM3 (4.50-5.90); RED CELL DISTRIBUTION WIDTH 15.3 % (11.6-17.2); WHITE BLOOD COUNT 6.1 TH/MM3 (4.0-11.0)
--- NOTE | 2017-08-24 09:29 | HHI.NSPN ---
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 (KendallApolinar) Interval History 08/14: The patient went for a lateral oblique/retroperitoneal approach for drainage of lumbar retroperitoneal and bilateral psoas muscle abscess by Neurosurgery and General Surgery. Post-operatively the patient was admitted to the ISC unit for further care and monitoring. 08/15: The patient is awake in bed this afternoon when seen. He does have pain to the left lateral abdominal wall/flank at the surgical incisions. He denies any back or lower extremity pain. He has no numbness or tingling to the lower extremities. There are no evident sensorimotor deficits noted upon examination. 08/20: The patient is asleep when seen but awakens to voice. After that he is awake and alert. He denies any back or lower extremity pain. He has numbness to both feet but only when he stands, otherwise he has no numbness to the lower extremities. He had no numbness to the feet when examined and his muscle strength was normal. He did say that he had some incisional pain but only when he is getting up "or something like that." 08/21: When seen this morning the patient is awake in bed watching TV. He had no complaints but endorsed intermittent back pain. He also endorsed some mild tenderness at the left anterolateral abdominal wall surgical incision. The ALY drains were removed yesterday per General Surgery. There is no change noted in his physical exam. 08/22: This morning the patient is awake in bed watching TV. He did say he had some back pain during the night but had no other complaints. Upon evaluation his midline and lateral back were nontender and there was no change noted in his sensorimotor exam. 08/23: The patient is awake in bed watching TV this morning. He had no complaints and states he is doing alright. He has not had any further back pain since yesterday. His exam is unremarkable from yesterday. 08/24: When seen the patient was awake in bed watching TV. 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 He attributed some of his pain to the bed. He did say it was better but still present. He denied any pain, numbness or tingling into the lower extremities. There was no change in his sensorimotor exam. He was mildly tender to palpation along the left psoas muscle and into the left gluteal muscle. (Apolinar Argueta) Exam Results 08/22/17 08/22/17 08/23/17 08/23/17 08/24/17 08/24/17 06:00 18:00 06:00 18:00 06:00 18:00 Intake Total 800 ml 1480 ml 1300 ml 340 ml Output Total 1400 ml 800 ml 1025 ml 2000 ml Balance -1400 ml 0 ml 455 ml 1300 ml -1660 ml Intake Oral 700 ml 480 ml 1200 ml 240 ml IV Total 100 ml 1000 ml 100 ml 100 ml Output Urine Total 1400 ml 800 ml 1025 ml 2000 ml # Voids 3 # Bowel Movements 2 1 0 0 Vital Signs Date Time Temp Pulse Resp B/P (MAP) Pulse Ox O2 Delivery O2 Flow Rate FiO2 08/24/17 08:00 97.6 86 19 131/87 (102) 95 08/24/17 05:46 136 22 113/77 (89) 95 08/24/17 00:00 97.9 87 18 138/85 (102) 96 08/23/17 20:00 97.2 95 18 138/91 (107) 94 08/23/17 16:00 97.3 87 17 126/73 (90) 93 08/23/17 12:00 97.6 93 18 128/80 (96) 93 08/23/17 08:02 99.1 90 17 130/84 (99) 95 08/23/17 00:00 97.5 82 19 110/62 (78) 94 08/22/17 20:00 97.9 97 19 108/65 (79) 95 08/22/17 16:00 97.9 84 17 130/87 (101) 95 08/22/17 12:00 98.3 92 17 112/71 (85) 94 08/22/17 08:00 98.1 91 18 121/78 (92) 97 08/22/17 04:38 19 08/21/17 20:00 98.3 86 18 135/89 (104) 96 08/21/17 16:00 98.8 90 18 114/67 (83) 96 08/21/17 12:00 98.0 87 19 104/65 (78) 93 (Apolinar Argueta) Physical Examination GENERAL: Awake in bed watching TV. Affect essentially normal & readily interacts. No apparent distress. SKIN: Left anterolateral abdominal wall surgical incision well approximated w/ lamin [employer]. ALY drain insertion sites w/intact dressing. HEENT: Normocephalic, atraumatic. GASTROINTESTINAL: Abdomen soft, nontender, surgical incision NTTP, ALY drain insertion sites NTTP. MUSCULOSKELETAL: HUANG spontaneously & purposefully w/o difficulty. No evident clubbing or deformity. Midline lumbar spine NTTP. TTP along left paraspinals, psoas and gluteal. NEUROLOGICAL: AAOx3. Speech clear & appropriate. Follows commands w/o difficulty. Sensation intact to light touch to the lower extremities. Muscle strength is 5/5 to the lower extremities. (Apolinar Argueta) Lab, Micro, Other Results Laboratory Tests Test 08/24/17 08:47 White Blood Count 6.1 TH/MM3 Red Blood Count 2.85 MIL/MM3 Hemoglobin 7.9 GM/DL Hematocrit 24.9 % Mean Corpuscular Volume 87.6 FL Mean Corpuscular Hemoglobin 27.7 PG Mean Corpuscular Hemoglobin Concent 31.7 % Red Cell Distribution Width 15.3 % Platelet Count 277 TH/MM3 Mean Platelet Volume 6.8 FL (Apolinar Argueta) Medical Decision Making Impression and Plan Impression: 1, 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 History of chronic low back pain. 3. L4-5 moderate spinal stenosis w/grade 1 spondylolisthesis 4. Prevertebral/retroperitoneal abscess 5. Possible L5 anterior osteomyelitis w/elevated sed rate and white count Postoperative Diagnosis: (1) Osteomyelitis (Neurosurgery) Lumbar discitis, osteomyelitis (Neurosurgery) Lumbar retroperitoneal-bilateral psoas abscess (Neurosurgery) Psoas abscess, paraspinal abscesses, sepsis. (General Surgery) The patient is doing well. He has no sensorimotor deficits to lower extremities. No pain to the surgical incision. W/left-side paraspinal, psoas & gluteal tender. Afebrile the past 24 hrs. One episode of tachycardia the past 24 hrs. ALY drains d/c'd . Reviewed labs for today. Haemoglobin essentially stable from . Chemistries pending. MRI lumbar spine demonstrated increasing soft tissue signal to the back muscle from L1-L5. Increased marrow edema at L5 and to a lesser degree at L4. Increased disc space signal. Large bilateral psoas abscesses extending from L2 on the left into the iliopsoas and L3 on the right to the pelvis. Represents substantial progression. No significant epidural component. POD #10 () s/p: Lateral oblique approach for drainage of lumbar retroperitoneal and bilateral psoas muscle abscess (Neurosurgery) Retroperitoneal approach to the psoas muscle and drainage of psoas abscess and paraspinal abscess drainage. (General Surgery - Alyson Sanchez MD) Plan: Discussed the plan of care with the patient who verbalised his understanding and his questions were answered. Primary management per Hospitalist. Antibiotics per Infectious Disease. Mobilise patient w/assistance. Physical Therapy eval & tx. Will need at least 6 wks of IV antibiotics and follow-up imaging before consideration of any surgical intervention w/instrumentation. Plan to d/c lamin this weekend. (Apolinar Argueta) Attending Statement The exam, history, and the medical decision-making described in the above note were completed with the assistance of the mid-level provider. I reviewed and agree with the findings presented. I attest that I had a [id number] encounter with the patient on the same day, and personally performed and documented my assessment and findings in the medical record. Patient remains awake and alert postop Lower extremity sensorimotor intact Postoperative pain resolving Dressings dry and intact Stable postop (Guero Felipe MD) Apolinar Argueta August 24, 2017 09:29 Guero Felipe MD August 25, 2017 22:24
[2017-08-24 09:34] LABS: BICARBONATE 27.4 MEQ/L (21.0-32.0); CALCIUM 8.3 MG/DL (8.5-10.1); CREATININE 1.47 MG/DL (0.60-1.30); MAGNESIUM 1.8 MG/DL (1.5-2.5)
[2017-08-24 12:00] VITALS: BP 120/82; PULSE 81; RESP 18; TEMP 97.8; O2SAT 90
[2017-08-24] MEDS: cefTRIAXone INJ 2,000 MG in SODIUM CHLORIDE 0.9% INJ 100 ML IV SCH ×2 (12:19→22:13)
--- NOTE | 2017-08-24 13:39 | HHI.PR ---
Subjective Remarks The patient was resting comfortably in bed. He seemed tired. He had no acute complaints and just wanted to go back to bed. Discussed with nursing. Objective Vitals Vital Signs Date Time Temp Pulse Resp B/P (MAP) Pulse Ox O2 Delivery O2 Flow Rate FiO2 08/24/17 12:00 97.8 81 18 120/82 (95) 90 08/24/17 08:00 97.6 86 19 131/87 (102) 95 08/24/17 05:46 136 22 113/77 (89) 95 08/24/17 00:00 97.9 87 18 138/85 (102) 96 08/23/17 20:00 97.2 95 18 138/91 (107) 94 08/23/17 16:00 97.3 87 17 126/73 (90) 93 I/O 08/23/17 08/23/17 08/23/17 08/24/17 08/24/17 08/24/17 06:59 14:59 22:59 06:59 14:59 22:59 Intake Total 1480 ml 1400 ml 240 ml Output Total 900 ml 2000 ml Balance 580 ml 1400 ml -1760 ml Intake Oral 480 ml 1200 ml 240 ml IV Total 1000 ml 200 ml Output Urine Total 900 ml 2000 ml # Voids 3 # Bowel Movements 0 0 Result Diagram: 08/24/17 0847 08/24/17 0847 Imaging Last Impressions Chest X-Ray 08/15/17 0000 Signed Impressions: Service Date/Time: Tuesday, August 15, 2017 11:34 - CONCLUSION: Mild compensated cardiomegaly Roly Reina MD FACR Lumbar Spine MRI 08/08/17 0000 Signed Impressions: Service Date/Time: Tuesday, August 08, 2017 13:37 - CONCLUSION: Substantial progression as described above. Roly Reina MD FACR Lumbar Puncture Fluoroscopy 08/08/17 0000 Signed Impressions: Service Date/Time: Tuesday, August 08, 2017 15:42 - CONCLUSION: Uncomplicated fluoroscopically guided lumbar puncture. Fady Chan MD Needle Biopsy/Aspiration X-Ray 07/31/17 0000 Signed Impressions: Service Date/Time: Monday, July 31, 2017 13:29 - CONCLUSION: Uncomplicated needle biopsy of the L4/L5 disc space as above. Candelario Reina MD Abdomen/Pelvis CT 07/29/17 0000 Signed Impressions: Service Date/Time: Saturday, July 29, 2017 22:14 - CONCLUSION: 1. Significant new prevertebral soft tissue fullness and stranding centered at the L5 level. There is associated sclerosis and erosive changes in the anterior L5 vertebral body which appear unchanged from recent exams. Overall, findings are concerning for discitis and osteomyelitis. Consider repeat MRI examination for further evaluation. 2. 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 However, evaluation is significantly limited due to lack of IV contrast on this exam. This was not present on remote prior CT exam. A mycotic aneurysm cannot be entirely excluded. Contrast enhanced examination would be greatly beneficial in further evaluation. 3. Nodular appearing liver contour consistent with cirrhosis. 4. IVC filter in place. 5. Cholelithiasis. Tanner Jones MD Objective Remarks General: No acute distress. Heart: Regular rate and rhythm. No murmur. Lungs: Clear to auscultation bilaterally. No wheezes, rales, or rhonchi. Breathing is nonlabored. Abdomen: Soft, nontender, nondistended. Positive bowel sounds. Extremities: No lower extremity edema. Psych: Alert, oriented, answers questions appropriately. Neuro: No focal deficits noted. Back: Tender to palpation along left lower paraspinal musculature near buttocks. 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 Appreciate neurosurgery, vascular surgery, infectious disease recommendations. Status post drainage of abscess on 08/14/17. Wound culture is negative. Mycobacterial and fungal cultures are pending. Bacteremia with Strep Anginosis. - Continue antibiotics per ID. - follow up with neurosurgery. To remove lamin this weekend. Altered mental status Likely secondary to drug abuse. S/P lumbar puncture. Evaluated by psychiatry, patient is capable of making decisions. - resolved. - Avoid overly sedating medications. Cocaine abuse Urine toxicology positive for cocaine. There was concern that the patient may have used cocaine while in the hospital as his urine drug screen was positive 8 days after admission. - cessation instruction. - will allow visitors again. Right iliac artery aneurysm Patient noted to have a 2.9 cm aneurysm of the right internal iliac artery, possibly mycotic aneurysm. This was an incidental finding. He denies IV drug abuse. Appreciate vascular surgery recommendations. - No surgery planned at this time. Chronic kidney disease stage II with acute kidney injury. Creatinine improving. - IV fluids. Constipation - resolved s/p mag citrate. Hypoglycemia Glucose has been low at times. - ADAT. Add Ensure. - D5NS. - follow BMP. Anemia Seems chronic. - check Hemoccult. - follow CBC. HTN Blood pressure well controlled. - d/c clonidine. - continue amlodipine. DVT prophylaxis: SCDs. Jeovany Reddy DO August 24, 2017 13:39
[2017-08-24 16:00] VITALS: BP 126/79; PULSE 79; RESP 17; TEMP 97.6; O2SAT 95
[2017-08-24] MEDS: DEXT 5%-NACL 0.9% 1000 ML INJ 1,000 ML IV SCH (18:13)
[2017-08-24 20:00] VITALS: BP 140/77; PULSE 92; RESP 18; TEMP 98.1; O2SAT 95
[2017-08-25] VITALS: BP 125/74; PULSE 98; RESP 17; TEMP 97.9; O2SAT 98
[2017-08-25] MEDS: oxyCODONE/ACETAMINOPHEN 5 MG/325 MG TAB PO PRN ×5 (01:39→23:13)
[2017-08-25 08:00] VITALS: BP_SYST 136; BP_SYST 138; BP_DIAS 70; BP_DIAS 90; PULSE 91; PULSE 95; RESP 17; RESP 18; TEMP 98.1; TEMP 98.4; O2SAT 96
[2017-08-25 08:05] LABS: BICARBONATE 30.1 MEQ/L (21.0-32.0); CALCIUM 7.9 MG/DL (8.5-10.1); CREATININE 1.45 MG/DL (0.60-1.30); MAGNESIUM 1.8 MG/DL (1.5-2.5)
[2017-08-25] MEDS: FAMOTIDINE 20 MG TAB PO SCH ×2 (08:31→20:03)
[2017-08-25] MEDS: DOCUSATE SODIUM 50 MG/SENNA 8.6 MG TAB PO SCH ×2 (08:31→20:04)
[2017-08-25] MEDS: predniSONE 10 MG TAB PO SCH (08:31)
[2017-08-25] MEDS: LACTIC ACID (AMMONIUM LACTATE) 12% LOTION 225 GM BTL TOPICAL SCH ×4 (08:33→20:04)
[2017-08-25] MEDS: SODIUM CHLORIDE 0.9% FLUSH 10 ML FLUSH IV FLUSH SCH ×2 (09:00→20:04)
[2017-08-25] MEDS: POLYETHYLENE GLYCOL 17 GM PKG PO SCH (09:00)
[2017-08-25] MEDS: CYCLOBENZAPRINE HCL 10 MG TAB PO PRN ×3 (10:26→23:13)
[2017-08-25] MEDS: cefTRIAXone INJ 2,000 MG in SODIUM CHLORIDE 0.9% INJ 100 ML IV SCH ×2 (10:26→20:04)
[2017-08-25] MEDS: DEXT 5%-NACL 0.45% 1000 ML INJ 1,000 ML IV SCH ×3 (11:45→23:14)
[2017-08-25 12:00] VITALS: BP 119/67; PULSE 92; RESP 18; TEMP 97.9; O2SAT 96
--- NOTE | 2017-08-25 12:22 | HHI.PR ---
Subjective Remarks The patient said that he does not like to have lab draws in the morning when he is sleeping. He says that he has not had problems with low blood sugar in the past. Discussed with nursing. Objective Vitals Vital Signs Date Time Temp Pulse Resp B/P (MAP) Pulse Ox O2 Delivery O2 Flow Rate FiO2 08/25/17 08:00 98.4 95 17 138/90 (106) 96 08/25/17 00:00 97.9 98 17 125/74 (91) 98 08/24/17 20:00 98.1 92 18 140/77 (98) 95 08/24/17 16:00 97.6 79 17 126/79 (95) 95 I/O 08/24/17 08/24/17 08/24/17 08/25/17 08/25/17 08/25/17 06:59 14:59 22:59 06:59 14:59 22:59 Intake Total 240 ml 1200 ml 340 ml Output Total 2000 ml 1000 ml 600 ml Balance -1760 ml 200 ml -260 ml Intake Oral 240 ml 1200 ml 240 ml IV Total 100 ml Output Urine Total 2000 ml 1000 ml 600 ml # Bowel Movements 0 Result Diagram: 08/24/17 0847 08/25/17 0625 Imaging Last Impressions Chest X-Ray 08/15/17 0000 Signed Impressions: Service Date/Time: Tuesday, August 15, 2017 11:34 - CONCLUSION: Mild compensated cardiomegaly Roly Reina MD FACR Lumbar Spine MRI 08/08/17 0000 Signed Impressions: Service Date/Time: Tuesday, August 08, 2017 13:37 - CONCLUSION: Substantial progression as described above. Roly Reina MD FACR Lumbar Puncture Fluoroscopy 08/08/17 0000 Signed Impressions: Service Date/Time: Tuesday, August 08, 2017 15:42 - CONCLUSION: Uncomplicated fluoroscopically guided lumbar puncture. Fady Chan MD Needle Biopsy/Aspiration X-Ray 07/31/17 0000 Signed Impressions: Service Date/Time: Monday, July 31, 2017 13:29 - CONCLUSION: Uncomplicated needle biopsy of the L4/L5 disc space as above. Candelario Reina MD Abdomen/Pelvis CT 07/29/17 0000 Signed Impressions: Service Date/Time: Saturday, July 29, 2017 22:14 - CONCLUSION: 1. Significant new prevertebral soft tissue fullness and stranding centered at the L5 level. There is associated sclerosis and erosive changes in the anterior L5 vertebral body which appear unchanged from recent exams. Overall, findings are concerning for discitis and osteomyelitis. Consider repeat MRI examination for further evaluation. 2. 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 However, evaluation is significantly limited due to lack of IV contrast on this exam. This was not present on remote prior CT exam. A mycotic aneurysm cannot be entirely excluded. Contrast enhanced examination would be greatly beneficial in further evaluation. 3. Nodular appearing liver contour consistent with cirrhosis. 4. IVC filter in place. 5. Cholelithiasis. Tanner Jones MD Objective Remarks General: No acute distress. Heart: Regular rate and rhythm. No murmur. Lungs: Clear to auscultation bilaterally. No wheezes, rales, or rhonchi. Breathing is nonlabored. Abdomen: Soft, nontender, nondistended. Positive bowel sounds. Extremities: No lower extremity edema. Psych: Alert, oriented, answers questions appropriately. Neuro: No focal deficits noted. Back: Tender to palpation along left lower paraspinal musculature near buttocks. 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 Appreciate neurosurgery, vascular surgery, infectious disease recommendations. Status post drainage of abscess on 08/14/17. Wound culture is negative. Mycobacterial and fungal cultures are pending. Bacteremia with Strep Anginosis. - Continue antibiotics per ID. - follow up with neurosurgery. To remove lamin this weekend. Altered mental status Likely secondary to drug abuse. S/P lumbar puncture. Evaluated by psychiatry, patient is capable of making decisions. - resolved. - Avoid overly sedating medications. Cocaine abuse Urine toxicology positive for cocaine. There was concern that the patient may have used cocaine while in the hospital as his urine drug screen was positive 8 days after admission. - cessation instruction. - will allow visitors again. Right iliac artery aneurysm Patient noted to have a 2.9 cm aneurysm of the right internal iliac artery, possibly mycotic aneurysm. This was an incidental finding. He denies IV drug abuse. Appreciate vascular surgery recommendations. - No surgery planned at this time. Chronic kidney disease stage II with acute kidney injury. Creatinine improving. - IV fluids. Constipation - resolved s/p mag citrate. Hypoglycemia Glucose has been low at times. - ADAT. Add Ensure. - continue D5NS. - follow BMP. - check an insulin level. Obtain abdominal US if elevated. Anemia Seems chronic. - check Hemoccult. - follow CBC. HTN Blood pressure well controlled. - d/c clonidine. - continue amlodipine. DVT prophylaxis: SCDs. Jeovany Reddy DO August 25, 2017 12:22
[2017-08-25] MEDS: DEXT 5%-NACL 0.9% 1000 ML INJ 1,000 ML IV SCH ×3 (12:48→17:54)
--- NOTE | 2017-08-25 14:39 | HHI.NSPN ---
(KendallApolinar) History Chief Complaint: Slight pain to the back earlier. (KendallApolinar) Interval History 08/14: The patient went for a lateral oblique/retroperitoneal approach for drainage of lumbar retroperitoneal and bilateral psoas muscle abscess by Neurosurgery and General Surgery. Post-operatively the patient was admitted to the [facility] unit for further care and monitoring. 08/15: The patient is awake in bed this afternoon when seen. He does have pain to the left lateral abdominal wall/flank at the surgical incisions. He denies any back or lower extremity pain. He has no numbness or tingling to the lower extremities. There are no evident sensorimotor deficits noted upon examination. 08/20: The patient is asleep when seen but awakens to voice. After that he is awake and alert. He denies any back or lower extremity pain. He has numbness to both feet but only when he stands, otherwise he has no numbness to the lower extremities. He had no numbness to the feet when examined and his muscle strength was normal. He did say that he had some incisional pain but only when he is getting up "or something like that." 08/21: When seen this morning the patient is awake in bed watching TV. He had no complaints but endorsed intermittent back pain. He also endorsed some mild tenderness at the left anterolateral abdominal wall surgical incision. The ALY drains were removed yesterday per General Surgery. There is no change noted in his physical exam. 08/22: This morning the patient is awake in bed watching TV. He did say he had some back pain during the night but had no other complaints. Upon evaluation his midline and lateral back were nontender and there was no change noted in his sensorimotor exam. 08/23: The patient is awake in bed watching TV this morning. He had no complaints and states he is doing alright. He has not had any further back pain since yesterday. His exam is unremarkable from yesterday. 08/24: When seen the patient was awake in bed watching TV. He complained of low back pain during the night and manager sourcing. He attributed some of his pain to the bed. He did say it was better but still present. He denied any pain, numbness or tingling into the lower extremities. There was no change in his sensorimotor exam. He was mildly tender to palpation along the left psoas muscle and into the left gluteal muscle. 08/25: This afternoon the patient is awake and watching TV when seen. He did say that he had some slight pain to the back earlier. He denies any pain along the surgical incision. He has no change in his sensorimotor exam. (Apolinar Argueta) Exam Results 08/23/17 08/23/17 08/24/17 08/24/17 08/25/17 08/25/17 06:00 18:00 06:00 18:00 06:00 18:00 Intake Total 1480 ml 1300 ml 340 ml 1300 ml 340 ml 1100 ml Output Total 1025 ml 2000 ml 1000 ml 600 ml Balance 455 ml 1300 ml -1660 ml 300 ml -260 ml 1100 ml Intake Oral 480 ml 1200 ml 240 ml 1200 ml 240 ml IV Total 1000 ml 100 ml 100 ml 100 ml 100 ml 1100 ml Output Urine Total 1025 ml 2000 ml 1000 ml 600 ml # Voids 3 # Bowel Movements 0 0 0 Vital Signs Date Time Temp Pulse Resp B/P (MAP) Pulse Ox O2 Delivery O2 Flow Rate FiO2 08/25/17 12:00 97.9 92 18 119/67 (84) 96 08/25/17 08:00 98.4 95 17 138/90 (106) 96 08/25/17 00:00 97.9 98 17 125/74 (91) 98 08/24/17 20:00 98.1 92 18 140/77 (98) 95 08/24/17 16:00 97.6 79 17 126/79 (95) 95 08/24/17 12:00 97.8 81 18 120/82 (95) 90 08/24/17 08:00 97.6 86 19 131/87 (102) 95 08/24/17 05:46 136 22 113/77 (89) 95 08/24/17 00:00 97.9 87 18 138/85 (102) 96 08/23/17 20:00 97.2 95 18 138/91 (107) 94 08/23/17 16:00 97.3 87 17 126/73 (90) 93 08/23/17 12:00 97.6 93 18 128/80 (96) 93 08/23/17 08:02 99.1 90 17 130/84 (99) 95 08/23/17 00:00 97.5 82 19 110/62 (78) 94 08/22/17 20:00 97.9 97 19 108/65 (79) 95 08/22/17 16:00 97.9 84 17 130/87 (101) 95 (Apolinar Argueta) Physical Examination GENERAL: Awake in bed watching TV. Affect essentially normal & readily interacts. No apparent distress. SKIN: Left anterolateral abdominal wall surgical incision well approximated w/ lamin G[employer]PEL [employer]. ALY drain insertion sites w/intact dressing. HEENT: Normocephalic, atraumatic. GASTROINTESTINAL: Abdomen soft, nontender, surgical incision NTTP, ALY drain insertion sites NTTP. MUSCULOSKELETAL: HUANG spontaneously & purposefully w/o difficulty. No evident clubbing or deformity. Midline lumbar spine & lateral back NTTP. NEUROLOGICAL: AAOx3. Speech clear & appropriate. Follows commands w/o difficulty. Sensation intact to light touch to the lower extremities. Muscle strength is 5/5 to the lower extremities. (Apolinar Argueta) Lab, Micro, Other Results Laboratory Tests Test 08/24/17 08:47 08/25/17 06:25 White Blood Count 6.1 TH/MM3 Red Blood Count 2.85 MIL/MM3 Hemoglobin 7.9 GM/DL Hematocrit 24.9 % Mean Corpuscular Volume 87.6 FL Mean Corpuscular Hemoglobin 27.7 PG Mean Corpuscular Hemoglobin Concent 31.7 % Red Cell Distribution Width 15.3 % Platelet Count 277 TH/MM3 Mean Platelet Volume 6.8 FL Blood Urea Nitrogen 19 MG/DL 22 MG/DL Creatinine 1.47 MG/DL 1.45 MG/DL Random Glucose 80 MG/DL 66 MG/DL Calcium Level 8.3 MG/DL 7.9 MG/DL Magnesium Level 1.8 MG/DL 1.8 MG/DL Sodium Level 136 MEQ/L 141 MEQ/L Potassium Level 4.6 MEQ/L 4.4 MEQ/L Chloride Level 103 MEQ/L 105 MEQ/L Carbon Dioxide Level 27.4 MEQ/L 30.1 MEQ/L Anion Gap 6 MEQ/L 6 MEQ/L Estimat Glomerular Filtration Rate 60 ML/MIN 61 ML/MIN (Apolinar Argueta) Medical Decision Making Impression and Plan Impression: 1, 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 History of chronic low back pain. 3. L4-5 moderate spinal stenosis w/grade 1 spondylolisthesis 4. Prevertebral/retroperitoneal abscess 5. Possible L5 anterior osteomyelitis w/elevated sed rate and white count Postoperative Diagnosis: (1) Osteomyelitis (Neurosurgery) Lumbar discitis, osteomyelitis (Neurosurgery) Lumbar retroperitoneal-bilateral psoas abscess (Neurosurgery) Psoas abscess, paraspinal abscesses, sepsis. (General Surgery) The patient continues to do well. He has no sensorimotor deficits to lower extremities. No pain to the surgical incision or the lower back. Afebrile the past 24 hrs. ALY drains d/c'd . Reviewed labs for today. Renal function essentially stable. MRI lumbar spine demonstrated increasing soft tissue signal to the back muscle from L1-L5. Increased marrow edema at L5 and to a lesser degree at L4. Increased disc space signal. Large bilateral psoas abscesses extending from L2 on the left into the iliopsoas and L3 on the right to the pelvis. Represents substantial progression. No significant epidural component. POD #11 () s/p: Lateral oblique approach for drainage of lumbar retroperitoneal and bilateral psoas muscle abscess (Neurosurgery) Retroperitoneal approach to the psoas muscle and drainage of psoas abscess and paraspinal abscess drainage. (General Surgery - Alyson Sanchez MD) Plan: Discussed the plan of care with the patient who verbalised his understanding and his questions were answered. Primary management per Hospitalist. Antibiotics per Infectious Disease. Mobilise patient w/assistance. Physical Therapy eval & tx. Will need at least 6 wks of IV antibiotics and follow-up imaging before consideration of any surgical intervention w/instrumentation. Will d/c every other staple today and plan to d/c remainder tomorrow. (Apolinar Argueta) Attending Statement The exam, history, and the medical decision-making described in the above note were completed with the assistance of the mid-level provider. I reviewed and agree with the findings presented. I attest that I had a [id number] encounter with the patient on the same day, and personally performed and documented my assessment and findings in the medical record. No new complaints from the patient on 08/25/2017. Sensation to light touch and motor function remained intact in the lower extremities Incisional site pain improving Remove lamin over the weekend. Continue therapy-mobilize out of bed as tolerated with brace (Guero Felipe MD) Apolinar Argueta August 25, 2017 14:39 Guero Felipe MD August 25, 2017 22:25
[2017-08-25 16:00] VITALS: BP 117/78; PULSE 91; RESP 16; TEMP 97.9; O2SAT 96
[2017-08-25 20:00] VITALS: BP 115/71; PULSE 90; RESP 18; TEMP 97.8; O2SAT 95
[2017-08-26] VITALS: BP 118/78; PULSE 89; RESP 18; TEMP 97.2; O2SAT 95
[2017-08-26 06:53] LABS: BICARBONATE 27.9 MEQ/L (21.0-32.0); CALCIUM 7.6 MG/DL (8.5-10.1); CREATININE 1.53 MG/DL (0.60-1.30); MAGNESIUM 1.8 MG/DL (1.5-2.5)
[2017-08-26] MEDS: CYCLOBENZAPRINE HCL 10 MG TAB PO PRN ×3 (07:47→21:30)
[2017-08-26] MEDS: DOCUSATE SODIUM 50 MG/SENNA 8.6 MG TAB PO SCH ×2 (07:47→21:00)
[2017-08-26] MEDS: FAMOTIDINE 20 MG TAB PO SCH ×2 (07:47→21:00)
[2017-08-26] MEDS: predniSONE 10 MG TAB PO SCH (07:48)
[2017-08-26] MEDS: oxyCODONE/ACETAMINOPHEN 5 MG/325 MG TAB PO PRN ×4 (07:48→21:00)
[2017-08-26] MEDS: SODIUM CHLORIDE 0.9% FLUSH 10 ML FLUSH IV FLUSH SCH ×2 (07:49→21:00)
[2017-08-26] MEDS: POLYETHYLENE GLYCOL 17 GM PKG PO SCH (07:49)
[2017-08-26] MEDS: LACTIC ACID (AMMONIUM LACTATE) 12% LOTION 225 GM BTL TOPICAL SCH ×4 (07:50→21:00)
[2017-08-26 08:00] VITALS: BP 138/86; PULSE 95; RESP 19; TEMP 97.9; O2SAT 97
[2017-08-26] MEDS: cefTRIAXone INJ 2,000 MG in SODIUM CHLORIDE 0.9% INJ 100 ML IV SCH ×2 (11:55→22:00)
[2017-08-26 12:00] VITALS: BP 121/77; PULSE 95; RESP 17; TEMP 97.9; O2SAT 96
[2017-08-26 16:00] VITALS: BP 112/71; PULSE 95; RESP 19; TEMP 98.5; O2SAT 97
--- NOTE | 2017-08-26 16:30 | HHI.PR ---
Subjective Remarks The patient said he has been depressed. He said that he does not want any further surgery. He says he is going to be here for a long time getting antibiotics. He requested a new mattress. Discussed with nursing. Objective Vitals Vital Signs Date Time Temp Pulse Resp B/P (MAP) Pulse Ox O2 Delivery O2 Flow Rate FiO2 08/26/17 12:00 97.9 95 17 121/77 (92) 96 08/26/17 08:00 97.9 95 19 138/86 (103) 97 08/26/17 00:59 20 08/26/17 00:00 97.2 89 18 118/78 (91) 95 08/25/17 20:00 97.8 90 18 115/71 (86) 95 I/O 08/25/17 08/25/17 08/25/17 08/26/17 08/26/17 08/26/17 07:00 15:00 23:00 07:00 15:00 23:00 Intake Total 340 ml 1100 ml 975 ml 560 ml 1100 ml Output Total 600 ml 1900 ml 1200 ml 400 ml Balance -260 ml 1100 ml -925 ml -640 ml 700 ml Intake Oral 240 ml 975 ml 560 ml IV Total 100 ml 1100 ml 1100 ml Output Urine Total 600 ml 1900 ml 1200 ml 400 ml # Voids 1 # Bowel Movements 0 0 Result Diagram: 08/24/17 0847 08/26/17 0428 Imaging Last Impressions Chest X-Ray 08/15/17 0000 Signed Impressions: Service Date/Time: Tuesday, August 15, 2017 11:34 - CONCLUSION: Mild compensated cardiomegaly Roly Reina MD FACR Lumbar Spine MRI 08/08/17 0000 Signed Impressions: Service Date/Time: Tuesday, August 08, 2017 13:37 - CONCLUSION: Substantial progression as described above. Roly Reina MD FACR Lumbar Puncture Fluoroscopy 08/08/17 0000 Signed Impressions: Service Date/Time: Tuesday, August 08, 2017 15:42 - CONCLUSION: Uncomplicated fluoroscopically guided lumbar puncture. Fady Chan MD Needle Biopsy/Aspiration X-Ray 07/31/17 0000 Signed Impressions: Service Date/Time: Monday, July 31, 2017 13:29 - CONCLUSION: Uncomplicated needle biopsy of the L4/L5 disc space as above. Candelario Reina MD Abdomen/Pelvis CT 07/29/17 0000 Signed Impressions: Service Date/Time: Saturday, July 29, 2017 22:14 - CONCLUSION: 1. Significant new prevertebral soft tissue fullness and stranding centered at the L5 level. There is associated sclerosis and erosive changes in the anterior L5 vertebral body which appear unchanged from recent exams. Overall, findings are concerning for discitis and osteomyelitis. Consider repeat MRI examination for further evaluation. 2. 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 However, evaluation is significantly limited due to lack of IV contrast on this exam. This was not present on remote prior CT exam. A mycotic aneurysm cannot be entirely excluded. Contrast enhanced examination would be greatly beneficial in further evaluation. 3. Nodular appearing liver contour consistent with cirrhosis. 4. IVC filter in place. 5. Cholelithiasis. Tanner Jones MD Objective Remarks General: No acute distress. Heart: Regular rate and rhythm. No murmur. Lungs: Clear to auscultation bilaterally. No wheezes, rales, or rhonchi. Breathing is nonlabored. Abdomen: Soft, nontender, nondistended. Positive bowel sounds. Extremities: No lower extremity edema. Psych: Alert, oriented, answers questions appropriately. Neuro: No focal deficits noted. Back: Tender to palpation along left lower paraspinal musculature near buttocks. Psych: Slightly flattened affect. 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 Appreciate neurosurgery, vascular surgery, infectious disease recommendations. Status post drainage of abscess on 08/14/17. Wound culture is negative. Mycobacterial and fungal cultures are pending. Bacteremia with Strep Anginosis. - Continue antibiotics per ID. - follow up with neurosurgery. Merrick removed 08/26. Altered mental status Likely secondary to drug abuse. S/P lumbar puncture. Evaluated by psychiatry, patient is capable of making decisions. - resolved. - Avoid overly sedating medications. Cocaine abuse Urine toxicology positive for cocaine. There was concern that the patient may have used cocaine while in the hospital as his urine drug screen was positive 8 days after admission. - cessation instruction. - will allow visitors again. Right iliac artery aneurysm Patient noted to have a 2.9 cm aneurysm of the right internal iliac artery, possibly mycotic aneurysm. This was an incidental finding. He denies IV drug abuse. Appreciate vascular surgery recommendations. - No surgery planned at this time. Chronic kidney disease stage II with acute kidney injury. Creatinine seems stable. - monitor and avoid nephrotoxins. Hypoglycemia Glucose has been low at times. Improved. - ADAT. Add Ensure. - d/c D5NS and monitor. - check an insulin level. Obtain abdominal US if elevated. Anemia Seems chronic. - check Hemoccult. - follow CBC. HTN Blood pressure well controlled. - d/c clonidine. - continue amlodipine. DVT prophylaxis: SCDs. Jeovany Reddy DO August 26, 2017 16:30
[2017-08-26 20:00] VITALS: BP 102/63; PULSE 92; RESP 18; TEMP 97.8; O2SAT 95
[2017-08-27] VITALS: BP 122/70; PULSE 92; RESP 18; TEMP 97.7; O2SAT 99
[2017-08-27] MEDS: CYCLOBENZAPRINE HCL 10 MG TAB PO PRN ×2 (05:32→21:37)
[2017-08-27] MEDS: oxyCODONE/ACETAMINOPHEN 5 MG/325 MG TAB PO PRN ×4 (05:32→18:40)
[2017-08-27] MEDS: POLYETHYLENE GLYCOL 17 GM PKG PO SCH (07:29)
[2017-08-27 08:00] VITALS: BP 123/81; PULSE 97; RESP 19; TEMP 97.6; O2SAT 98
[2017-08-27] MEDS: SODIUM CHLORIDE 0.9% FLUSH 10 ML FLUSH IV FLUSH SCH ×2 (09:00→21:00)
[2017-08-27] MEDS: LACTIC ACID (AMMONIUM LACTATE) 12% LOTION 225 GM BTL TOPICAL SCH ×4 (09:00→21:00)
[2017-08-27] MEDS: DOCUSATE SODIUM 50 MG/SENNA 8.6 MG TAB PO SCH ×2 (09:35→21:37)
[2017-08-27] MEDS: predniSONE 10 MG TAB PO SCH (09:35)
[2017-08-27] MEDS: FAMOTIDINE 20 MG TAB PO SCH ×2 (09:36→21:37)
[2017-08-27] MEDS: cefTRIAXone INJ 2,000 MG in SODIUM CHLORIDE 0.9% INJ 100 ML IV SCH ×2 (09:37→21:37)
[2017-08-27 12:00] VITALS: BP 123/71; PULSE 96; RESP 19; TEMP 98.3; O2SAT 95
--- NOTE | 2017-08-27 14:48 | HHI.PR ---
Subjective Remarks The patient said that he was thinking longer about his situation and he would like to pursue surgery if it was recommended. He said he has generalized back pain, worse at the bottom. He had no other acute complaints. Discussed with nursing. Objective Vitals Vital Signs Date Time Temp Pulse Resp B/P (MAP) Pulse Ox O2 Delivery O2 Flow Rate FiO2 08/27/17 12:00 98.3 96 19 123/71 (88) 95 08/27/17 08:00 97.6 97 19 123/81 (95) 98 08/27/17 00:00 97.7 92 18 122/70 (87) 99 08/26/17 22:00 20 08/26/17 20:00 97.8 92 18 102/63 (76) 95 08/26/17 16:00 98.5 95 19 112/71 (85) 97 I/O 08/26/17 08/26/17 08/26/17 08/27/17 08/27/17 08/27/17 07:00 15:00 23:00 07:00 15:00 23:00 Intake Total 560 ml 1100 ml 780 ml 540 ml Output Total 1200 ml 400 ml 630 ml 1550 ml Balance -640 ml 700 ml 150 ml -1010 ml Intake Oral 560 ml 780 ml 540 ml IV Total 1100 ml Output Urine Total 1200 ml 400 ml 630 ml 1550 ml # Voids 1 # Bowel Movements 0 1 0 Result Diagram: 08/24/17 0847 08/26/17 0428 Imaging Last Impressions Chest X-Ray 08/15/17 0000 Signed Impressions: Service Date/Time: Tuesday, August 15, 2017 11:34 - CONCLUSION: Mild compensated cardiomegaly Roly Reina MD FACR Lumbar Spine MRI 08/08/17 0000 Signed Impressions: Service Date/Time: Tuesday, August 08, 2017 13:37 - CONCLUSION: Substantial progression as described above. Roly Reina MD FACR Lumbar Puncture Fluoroscopy 08/08/17 0000 Signed Impressions: Service Date/Time: Tuesday, August 08, 2017 15:42 - CONCLUSION: Uncomplicated fluoroscopically guided lumbar puncture. Fady Chan MD Needle Biopsy/Aspiration X-Ray 07/31/17 0000 Signed Impressions: Service Date/Time: Monday, July 31, 2017 13:29 - CONCLUSION: Uncomplicated needle biopsy of the L4/L5 disc space as above. Candelario Reina MD Abdomen/Pelvis CT 07/29/17 0000 Signed Impressions: Service Date/Time: Saturday, July 29, 2017 22:14 - CONCLUSION: 1. Significant new prevertebral soft tissue fullness and stranding centered at the L5 level. There is associated sclerosis and erosive changes in the anterior L5 vertebral body which appear unchanged from recent exams. Overall, findings are concerning for discitis and osteomyelitis. Consider repeat MRI examination for further evaluation. 2. 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 However, evaluation is significantly limited due to lack of IV contrast on this exam. This was not present on remote prior CT exam. A mycotic aneurysm cannot be entirely excluded. Contrast enhanced examination would be greatly beneficial in further evaluation. 3. Nodular appearing liver contour consistent with cirrhosis. 4. IVC filter in place. 5. Cholelithiasis. Tanner Jones MD Objective Remarks General: No acute distress. Heart: Regular rate and rhythm. No murmur. Lungs: Clear to auscultation bilaterally. No wheezes, rales, or rhonchi. Breathing is nonlabored. Abdomen: Soft, nontender, nondistended. Positive bowel sounds. Extremities: No lower extremity edema. Psych: Alert, oriented, answers questions appropriately. Neuro: No focal deficits noted. Back: Tender to palpation around the sacrum. Psych: Slightly flattened affect. 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 Appreciate neurosurgery, vascular surgery, infectious disease recommendations. Status post drainage of abscess on 08/14/17. Wound culture is negative. Mycobacterial and fungal cultures are pending. Bacteremia with Strep Anginosis. - Continue antibiotics per ID. - follow up with neurosurgery. Sheldahl removed 08/26. Possible surgery once antibiotics are completed. Altered mental status Likely secondary to drug abuse. S/P lumbar puncture. Evaluated by psychiatry, patient is capable of making decisions. - resolved. - Avoid overly sedating medications. Cocaine abuse Urine toxicology positive for cocaine. There was concern that the patient may have used cocaine while in the hospital as his urine drug screen was positive 8 days after admission. - cessation instruction. - will allow visitors again. Right iliac artery aneurysm Patient noted to have a 2.9 cm aneurysm of the right internal iliac artery, possibly mycotic aneurysm. This was an incidental finding. He denies IV drug abuse. Appreciate vascular surgery recommendations. - No surgery planned at this time. Chronic kidney disease stage II with acute kidney injury. Creatinine seems stable. - monitor and avoid nephrotoxins. Hypoglycemia Glucose has been low at times. Improved. - ADAT. Add Ensure. - d/c D5NS and monitor. The patient has been refusing fingersticks. - check an insulin level. Obtain abdominal US if elevated. Anemia Seems chronic. - check Hemoccult. - follow CBC. HTN Blood pressure well controlled. - d/c clonidine. - continue amlodipine. DVT prophylaxis: SCDs. Discharge Planning Will need to complete antibiotics in house and will possibly require further surgery prior to discharge. Jeovany Reddy DO August 27, 2017 14:47
[2017-08-27 16:00] VITALS: BP 116/77; PULSE 98; RESP 19; TEMP 97.9; O2SAT 96
[2017-08-27 20:00] VITALS: BP 134/75; PULSE 100; RESP 18; TEMP 97.8; O2SAT 96
[2017-08-28] VITALS: BP 126/76; PULSE 99; RESP 18; TEMP 97.8; O2SAT 98
[2017-08-28] MEDS: CYCLOBENZAPRINE HCL 10 MG TAB PO PRN ×3 (05:11→21:57)
[2017-08-28] MEDS: oxyCODONE/ACETAMINOPHEN 5 MG/325 MG TAB PO PRN ×4 (05:12→21:57)
[2017-08-28 05:57] LABS: HEMATOCRIT 21.4 % (39.0-51.0); MEAN CELL VOLUME 89.1 FL (80.0-100.0); MEAN CORPUSCULAR HEMOGLOBIN 28.6 PG (27.0-34.0); MEAN CORPUSCULAR HGB CONC 32.1 % (32.0-36.0); MEAN PLATELET VOLUME 7.4 FL (7.0-11.0); PLATELET COUNT 183 TH/MM3 (150-450); RED BLOOD COUNT 2.41 MIL/MM3 (4.50-5.90); RED CELL DISTRIBUTION WIDTH 15.7 % (11.6-17.2); WHITE BLOOD COUNT 7.3 TH/MM3 (4.0-11.0)
[2017-08-28 06:03] LABS: HEMOGLOBIN 6.9 GM/DL (13.0-17.0)
[2017-08-28] MEDS ORDERED: SODIUM CHLOR 0.9% 250 ML INJ 250 ML IV ONE (06:15)
[2017-08-28 06:33] LABS: BICARBONATE 28.5 MEQ/L (21.0-32.0); CALCIUM 7.8 MG/DL (8.5-10.1); CREATININE 1.49 MG/DL (0.60-1.30); MAGNESIUM 1.8 MG/DL (1.5-2.5)
[2017-08-28 08:00] VITALS: BP 105/65; PULSE 101; RESP 19; TEMP 98.3; O2SAT 96
[2017-08-28] MEDS: FAMOTIDINE 20 MG TAB PO SCH ×2 (08:55→21:58)
[2017-08-28] MEDS: predniSONE 10 MG TAB PO SCH (08:55)
[2017-08-28] MEDS: POLYETHYLENE GLYCOL 17 GM PKG PO SCH (08:56)
[2017-08-28] MEDS: DOCUSATE SODIUM 50 MG/SENNA 8.6 MG TAB PO SCH ×2 (08:56→21:00)
[2017-08-28] MEDS: SODIUM CHLORIDE 0.9% FLUSH 10 ML FLUSH IV FLUSH SCH ×2 (08:56→22:00)
[2017-08-28] MEDS: LACTIC ACID (AMMONIUM LACTATE) 12% LOTION 225 GM BTL TOPICAL SCH ×4 (09:00→21:00)
[2017-08-28 10:09] VITALS: BP 125/74; PULSE 102; RESP 17; TEMP 98.6; O2SAT 96
[2017-08-28 10:28] VITALS: BP 127/80; PULSE 102; RESP 17; TEMP 98.1; O2SAT 94
--- NOTE | 2017-08-28 11:55 | HHI.IDPN ---
Subjective Subjective Remarks Patient seen and examined on behalf of Dr. Goldstein Mr. Gee is a 57-year-old -[place] male with past medical history significant for rheumatoid arthritis on prednisone. From infectious disease standpoint his past medical history significant for prior history of strep epidural abscess as well as bacteremia treated with IV antibiotics and also needing L4 partial laminectomy in 2013 as well as an abscess on the skin of his back.. His past medical history is also significant for chronic kidney disease stage III, chronic back pain, cocaine abuse and tobacco abuse who presented to the emergency department with complaints of severe back pain. Patient is an extremely poor historian and reports that he has had a prior visit to the emergency room on July 23, 2017 with similar symptoms. An MRI of the L-spine did not show any evidence of infection patient was asked to follow-up with Dr. Pineda whom he has seen in the past. On arrival, BP 125/71, HR 86, O2 sat 100% RA, Afebrile. WBC 20.8. Na 128. K+ 5.5. Creatinine 2.84, previously 2.97 on 07/23/2017. INR 1.1. UA negative for UTI. 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 S/p Vanc/ Rocephin in ER. At the time of my evaluation patient is on a regular floor. Appears to be comfortable not in significant pain involving his extremities. Patient reports tingling numbness and extreme pain in his bilateral lower extremities right more than left. Patient denies any bowel bladder incontinence. Denies any decrease in perineal sensation. Infectious diseases consulted for evaluation and management of discitis and epidural abscess. Notes reviewed undergoing blood transfusion for hgb 6.9 tells me he is very depressed - his youngest brother recently c/o low back pain and sharp pain shooting down to feet when he gets up to use the bedside commode no fever or chills no rash no N/V no diarrhea afebrile 08/14 s/p drainage lumbar retroperitoneal and bilateral psoas muscle abscess, with neg cultures 07/29 BCX + strep anginosus/milleri. Repeat BCX negative Antibiotics IV Ceftriaxone q 12 Current Medications Medications (Trade) Dose Ordered Sig/Manjit Route Start Time Stop Time Status Last Admin (NS Flush) 2 ml UNSCH PRN IV FLUSH 07/29/17 23:15 08/10/17 06:06 (NS Flush) 2 ml BID IV FLUSH 07/30/17 09:00 08/28/17 08:56 (Zofran Inj) 4 mg Q6H PRN IVP 07/29/17 23:15 (Tylenol) 650 mg Q6H PRN PO 07/29/17 23:15 08/15/17 07:38 (Emilie-Colace) 1 tab BID PO 07/30/17 09:00 08/28/17 08:56 (Milk Of Magnesia Liq) 30 ml Q12H PRN PO 07/29/17 23:15 (Senokot) 17.2 mg Q12H PRN PO 07/29/17 23:15 (Dulcolax Supp) 10 mg DAILY PRN RECTAL 07/29/17 23:15 (Lactulose Liq) 30 ml DAILY PRN PO 07/29/17 23:15 08/19/17 13:55 (Tums Chew) 500 mg Q2H PRN CHEW 08/02/17 19:30 08/05/17 13:49 Ceftriaxone Sodium 2000 mg/ Sodium Chloride 100 ml @ 200 mls/hr Q12H IV 08/03/17 17:00 08/27/17 21:37 (Catapres) 0.1 mg Q6H PRN PO 08/04/17 15:30 08/06/17 23:44 (Lac-Hydrin 12% Lotion) 1 applic BID TOPICAL 08/04/17 21:00 08/28/17 09:02 (Pepcid) 20 mg BID PO 08/05/17 21:00 08/28/17 08:55 (Norvasc) 10 mg DAILY PO 08/06/17 11:00 08/28/17 08:55 (Vasotec Inj) 2.5 mg Q6H PRN IV PUSH 08/06/17 11:00 08/07/17 22:20 (Percocet 5-325 Mg) 1 tab Q4HR PRN PO 08/09/17 10:00 08/28/17 09:06 (Narcan Inj) 0.4 mg UNSCH PRN IV PUSH 08/14/17 19:30 (Proair Hfa Inh) 2 puff Q4H PRN INH 08/14/17 20:30 (Flexeril) 5 mg TID PRN PO 08/14/17 20:30 08/28/17 05:11 (Lac-Hydrin 12% Lotion) 1 applic BID TOPICAL 08/17/17 11:00 08/26/17 07:50 (Miralax) 17 gm DAILY PO 08/18/17 09:00 08/21/17 08:51 (Deltasone) 10 mg DAILY PO 08/21/17 09:00 08/28/17 08:55 Sodium Chloride 250 ml @ 15 mls/hr ONCE ONCE IV 08/28/17 06:15 08/28/17 22:54 08/28/17 10:17 Lines Line sites with no e.o infection. Past Medical History reviewed. (Jeni Reed) Allergies: Coded Allergies: *MDRO Multi-Drug Resistant Organism (Verified Adverse Reaction, Unknown, ) MRSA (leg wound) - 10/2006 MRSA PCR screen positive - 10/2014 Objective . Vital Signs Date Time Temp Pulse Resp B/P (MAP) Pulse Ox O2 Delivery O2 Flow Rate FiO2 08/28/17 10:28 98.1 102 17 127/80 94 08/28/17 10:09 98.6 102 17 125/74 96 08/28/17 08:00 98.3 101 19 105/65 (78) 96 08/28/17 00:00 97.8 99 18 126/76 (93) 98 08/27/17 22:49 18 08/27/17 20:00 97.8 100 18 134/75 (94) 96 08/27/17 16:00 97.9 98 19 116/77 (90) 96 08/27/17 12:00 98.3 96 19 123/71 (88) 95 . Laboratory Tests Test 08/28/17 04:33 White Blood Count 7.3 TH/MM3 Red Blood Count 2.41 MIL/MM3 Hemoglobin 6.9 GM/DL Hematocrit 21.4 % Mean Corpuscular Volume 89.1 FL Mean Corpuscular Hemoglobin 28.6 PG Mean Corpuscular Hemoglobin Concent 32.1 % Red Cell Distribution Width 15.7 % Platelet Count 183 TH/MM3 Mean Platelet Volume 7.4 FL Laboratory Tests Test 08/28/17 04:33 Blood Urea Nitrogen 24 MG/DL Creatinine 1.49 MG/DL Random Glucose 80 MG/DL Calcium Level 7.8 MG/DL Magnesium Level 1.8 MG/DL Sodium Level 141 MEQ/L Potassium Level 4.6 MEQ/L Chloride Level 106 MEQ/L Carbon Dioxide Level 28.5 MEQ/L Anion Gap 7 MEQ/L Estimat Glomerular Filtration Rate 59 ML/MIN Imaging Last Impressions Chest X-Ray 08/15/17 0000 Signed Impressions: Service Date/Time: Tuesday, August 15, 2017 11:34 - CONCLUSION: Mild compensated cardiomegaly Roly Reina MD FACR Lumbar Spine MRI 08/08/17 0000 Signed Impressions: Service Date/Time: Tuesday, August 08, 2017 13:37 - CONCLUSION: Substantial progression as described above. Roly Reina MD FACR Lumbar Puncture Fluoroscopy 08/08/17 0000 Signed Impressions: Service Date/Time: Tuesday, August 08, 2017 15:42 - CONCLUSION: Uncomplicated fluoroscopically guided lumbar puncture. Fady Chan MD Needle Biopsy/Aspiration X-Ray 07/31/17 0000 Signed Impressions: Service Date/Time: Monday, July 31, 2017 13:29 - CONCLUSION: Uncomplicated needle biopsy of the L4/L5 disc space as above. Candelario Reina MD Abdomen/Pelvis CT 07/29/17 0000 Signed Impressions: Service Date/Time: Saturday, July 29, 2017 22:14 - CONCLUSION: 1. Significant new prevertebral soft tissue fullness and stranding centered at the L5 level. There is associated sclerosis and erosive changes in the anterior L5 vertebral body which appear unchanged from recent exams. Overall, findings are concerning for discitis and osteomyelitis. Consider repeat MRI examination for further evaluation. 2. 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 However, evaluation is significantly limited due to lack of IV contrast on this exam. This was not present on remote prior CT exam. A mycotic aneurysm cannot be entirely excluded. Contrast enhanced examination would be greatly beneficial in further evaluation. 3. Nodular appearing liver contour consistent with cirrhosis. 4. IVC filter in place. 5. Cholelithiasis. Tanner Jones MD Physical Exam GENERAL: Well developed well nourished male patient, INAD. Awake and alert. Lying in hospital bed. Appears comfortable. SKIN: Warm and dry. No obvious rash. BLE with extremely dry skin improved. HEAD: Atraumatic. Normocephalic. EYES: EOMI. No scleral icterus. No injection or drainage. ENT: No gross bleeding. MMM. NECK: Trachea midline. Moves neck in all directions. No rigidity noted. CARDIOVASCULAR: Regular rate and rhythm. RESPIRATORY: Nonlabored. Diminished. Clear to auscultation anteriorly. GASTROINTESTINAL: Soft, postop with surgical incision over left side of abdomen with dry and intact dressing, incision appears to be healing well, lamin intact with removal of some lamin and intact steristrip. ALY drains removed with sites appearing to be healing well. MUSCULOSKELETAL: No pedal edema NEUROLOGICAL: Awake and alert. Moves all extremities spontaneously. Normal speech. PSYCHIATRIC: Calm and cooperative. IV line sites with no e.o infection (Jeni Reed) Assessment & Plan Remarks Strep bacteremia, probable endocarditis Probable meningitis based on glucose and total protein (partially treated by the time LP done) Epidural abscess Discitis. - progression of infection on MRI repeat Bilateral psoas fluid collection s/p I&D 08/14 with 250ml yellowish purulent material removed. Fever postop, resolved. 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 Immune compromised host on steroids Acute on chronic kidney disease, resolved Hyperkalemia, resolved Hep B reactive Anemia, hgb 6.9, undergoing blood transfusion -hemoccult ordered Recs Continue on IV Ceftriaxone q 12h (Jeni Reed) Remarks The exam, history, and the medical decision-making described in the above note were completed with the assistance of the mid-level provider. I reviewed and agree with the findings presented. I attest that I had a [id number] encounter with the patient on the same day, and personally performed and documented my assessment and findings in the medical record. Reports back pain and pain in both legs. No fevers No rash Recs Continue Ceftriaxone IV Will get repeat MRI to follow up on abscesses. Check CRP (Latricia Goldstein MD) Jeni Reed August 28, 2017 11:54 Latricia Goldstein MD August 28, 2017 14:53
--- NOTE | 2017-08-28 12:19 | HHI.NSPN ---
(KendallApolinar) History Interval History 08/14: The patient went for a lateral oblique/retroperitoneal approach for drainage of lumbar retroperitoneal and bilateral psoas muscle abscess by Neurosurgery and General Surgery. Post-operatively the patient was admitted to the [facility]SC unit for further care and monitoring. 08/15: The patient is awake in bed this afternoon when seen. He does have pain to the left lateral abdominal wall/flank at the surgical incisions. He denies any back or lower extremity pain. He has no numbness or tingling to the lower extremities. There are no evident sensorimotor deficits noted upon examination. 08/20: The patient is asleep when seen but awakens to voice. After that he is awake and alert. He denies any back or lower extremity pain. He has numbness to both feet but only when he stands, otherwise he has no numbness to the lower extremities. He had no numbness to the feet when examined and his muscle strength was normal. He did say that he had some incisional pain but only when he is getting up "or something like that." 08/21: When seen this morning the patient is awake in bed watching TV. He had no complaints but endorsed intermittent back pain. He also endorsed some mild tenderness at the left anterolateral abdominal wall surgical incision. The ALY drains were removed yesterday per General Surgery. There is no change noted in his physical exam. 08/22: This morning the patient is awake in bed watching TV. He did say he had some back pain during the night but had no other complaints. Upon evaluation his midline and lateral back were nontender and there was no change noted in his sensorimotor exam. 08/23: The patient is awake in bed watching TV this morning. He had no complaints and states he is doing alright. He has not had any further back pain since yesterday. His exam is unremarkable from yesterday. 08/24: When seen the patient was awake in bed watching TV. 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 He attributed some of his pain to the bed. He did say it was better but still present. He denied any pain, numbness or tingling into the lower extremities. There was no change in his sensorimotor exam. He was mildly tender to palpation along the left psoas muscle and into the left gluteal muscle. 08/25: This afternoon the patient is awake and watching TV when seen. He did say that he had some slight pain to the back earlier. He denies any pain along the surgical incision. He has no change in his sensorimotor exam. This practitioner acts as a scribe for this note. 08/28: The patient reports a sharp pain radiating from the back into the lower extremities when he stands. He also has numbness to the feet. (Apolinar Argueta) Exam Results 08/26/17 08/26/17 08/27/17 08/27/17 08/28/17 08/28/17 06:00 18:00 06:00 18:00 06:00 18:00 Intake Total 560 ml 1880 ml 540 ml 1180 ml 540 ml Output Total 1200 ml 1030 ml 1550 ml 1500 ml 2200 ml Balance -640 ml 850 ml -1010 ml -320 ml -1660 ml Intake Oral 560 ml 780 ml 540 ml 1180 ml 540 ml IV Total 1100 ml Output Urine Total 1200 ml 1030 ml 1550 ml 1500 ml 2200 ml # Voids 1 # Bowel Movements 0 1 0 2 Vital Signs Date Time Temp Pulse Resp B/P (MAP) Pulse Ox O2 Delivery O2 Flow Rate FiO2 08/28/17 10:28 98.1 102 17 127/80 94 08/28/17 10:09 98.6 102 17 125/74 96 08/28/17 08:00 98.3 101 19 105/65 (78) 96 08/28/17 00:00 97.8 99 18 126/76 (93) 98 08/27/17 22:49 18 08/27/17 20:00 97.8 100 18 134/75 (94) 96 08/27/17 16:00 97.9 98 19 116/77 (90) 96 08/27/17 12:00 98.3 96 19 123/71 (88) 95 08/27/17 08:00 97.6 97 19 123/81 (95) 98 08/27/17 00:00 97.7 92 18 122/70 (87) 99 08/26/17 20:00 97.8 92 18 102/63 (76) 95 08/26/17 16:00 98.5 95 19 112/71 (85) 97 08/26/17 12:00 97.9 95 17 121/77 (92) 96 08/26/17 08:00 97.9 95 19 138/86 (103) 97 08/26/17 00:00 97.2 89 18 118/78 (91) 95 08/25/17 20:00 97.8 90 18 115/71 (86) 95 08/25/17 16:00 97.9 91 16 117/78 (91) 96 (Apolinar Argueta) Physical Examination Sensation decreased to both feet, o/w it is intact to light touch to the lower extremities. Muscle strength is 5/5 to the lower extremities. (Apolinar Argueta) Lab, Micro, Other Results Laboratory Tests Test 08/26/17 04:25 08/26/17 04:28 08/28/17 04:33 Blood Urea Nitrogen 23 MG/DL 24 MG/DL Creatinine 1.53 MG/DL 1.49 MG/DL Random Glucose 120 MG/DL 80 MG/DL Calcium Level 7.6 MG/DL 7.8 MG/DL Magnesium Level 1.8 MG/DL 1.8 MG/DL Sodium Level 140 MEQ/L 141 MEQ/L Potassium Level 4.3 MEQ/L 4.6 MEQ/L Chloride Level 106 MEQ/L 106 MEQ/L Carbon Dioxide Level 27.9 MEQ/L 28.5 MEQ/L Anion Gap 6 MEQ/L 7 MEQ/L Estimat Glomerular Filtration Rate 58 ML/MIN 59 ML/MIN White Blood Count 7.3 TH/MM3 Red Blood Count 2.41 MIL/MM3 Hemoglobin 6.9 GM/DL Hematocrit 21.4 % Mean Corpuscular Volume 89.1 FL Mean Corpuscular Hemoglobin 28.6 PG Mean Corpuscular Hemoglobin Concent 32.1 % Red Cell Distribution Width 15.7 % Platelet Count 183 TH/MM3 Mean Platelet Volume 7.4 FL (Apolinar Argueta) Medical Decision Making Impression and Plan Impression: 1, 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 History of chronic low back pain. 3. L4-5 moderate spinal stenosis w/grade 1 spondylolisthesis 4. Prevertebral/retroperitoneal abscess 5. Possible L5 anterior osteomyelitis w/elevated sed rate and white count Postoperative Diagnosis: (1) Osteomyelitis (Neurosurgery) Lumbar discitis, osteomyelitis (Neurosurgery) Lumbar retroperitoneal-bilateral psoas abscess (Neurosurgery) Psoas abscess, paraspinal abscesses, sepsis. (General Surgery) MRI lumbar spine demonstrated increasing soft tissue signal to the back muscle from L1-L5. Increased marrow edema at L5 and to a lesser degree at L4. Increased disc space signal. Large bilateral psoas abscesses extending from L2 on the left into the iliopsoas and L3 on the right to the pelvis. Represents substantial progression. No significant epidural component. POD #11 () s/p: Lateral oblique approach for drainage of lumbar retroperitoneal and bilateral psoas muscle abscess (Neurosurgery) Retroperitoneal approach to the psoas muscle and drainage of psoas abscess and paraspinal abscess drainage. (General Surgery - Alyson Sanchez MD) Plan: Discussed the plan of care with the patient who verbalised his understanding and his questions were answered. Primary management per Hospitalist. Antibiotics per Infectious Disease. Mobilise patient w/assistance. LSO brace when OOB. Physical Therapy eval & tx. Will need at least 6 wks of IV antibiotics and follow-up imaging before consideration of any surgical intervention w/instrumentation. D/c remaining lamin and place steri-strips. (Apolinar Argueta) Attending Statement The exam, history, and the medical decision-making described in the above note were completed with the assistance of the mid-level provider. I reviewed and agree with the findings presented. I attest that I had a [id number] encounter with the patient on the same day, and personally performed and documented my assessment and findings in the medical record. Patient seen today with nurse practitioner. My findings and treatment recommendations are scribed as noted above. (Guero Felipe MD) Apolinar Argueta August 28, 2017 12:19 Guero Felipe MD August 30, 2017 20:19
[2017-08-28] MEDS: cefTRIAXone INJ 2,000 MG in SODIUM CHLORIDE 0.9% INJ 100 ML IV SCH ×2 (13:43→22:03)
[2017-08-28 16:00] VITALS: BP 131/82; PULSE 95; RESP 19; TEMP 97.8; O2SAT 100
--- NOTE | 2017-08-28 16:58 | HHI.HCPN ---
Reason for visit a. To assist with evaluation and management of symptoms including: Pain, anxiety,debility b. To assist medical decision maker(s) with: better understanding of current medical conditions; weighing benefits/burdens of medical treatment options; making medical treatment decisions. . (Erasmo Vieyra) Subjective/Interval History Follow-up medically necessary for symptom management. Patient seen and examined in his room. Patient is sleeping with head of bed flat. Easily arouses. Patient explaining that he prefers to have his bed flat because it makes him feel more comfortable. Patient endorsing "nerve" neuropathy pain from lower back radiating towards his legs. Patient complaining of numbness to his bilateral feet. Pain is exacerbated with activity especially when he gets on his feet. Patient does explained that pain is definitely controlled and better than what it was prior to surgery. Patient endorsing feeling somewhat down today because his young brother who lives locally and was found in his apartment. Patient expressing that he knows he has a long ways before completing antibiotic therapy inhouse and has to be strong to get through it. Patient is willing to go through surgery after antibiotic therapy if neurosurgeon advises him to do so. He states that he would rather go through everything that needs to be done while he is in the hospital. He says sometimes he feels lonely. Visitor restrictions lifted on 08/22/17 and patient is aware. Requesting to shower if surgeons allow him to since he is going to be hospitalized for a long time. Pain is managed with patient oxycodone/acetaminophen 5/325 q 4 hrs prn. Patient has required 5 prn doses in the past 24 hours. Patient is also on a low dose prednisone daily. Laboratory workup today revealed WBC 7.3, hemoglobin 6.9, hematocrit 21.4, platelet count 183, potassium 4.6, BUN/creatinine 24/1.49, calcium 7.8, magnesium 1.8. No report of any sign of bleeding from bedside RN and patient. Occult blood ordered. 1 unit PRBC transfused. Infectious disease neurosurgeon following. Repeat MRI of L-spine ordered by infectious disease. Case discussed with bedside RN. . Family/friend interactions No family at bedside . (Erasmo Vieyra) Advance Directives Living Will: Never completed Health Care Surrogate: Copy in medical record Durable Power of Retail Specialist: Never completed (Erasmo Vieyra) Advance Directive Specifics Date completed: 08/09/2017 . Health Care Surrogate(s): Healthcare surrogate-Friend- Jennifer Arrietao- [phone] Alternate healthcare surrogate -Son-Kalyan Gee Tm-[phone]/ 3rd choice- If the above-mentioned are not able to serve, patient designated his ex- -Kelly Gee as his second Alternate healthcare surrogate . Documented care wishes: No written documentation of health care goals/preferences . (Erasmo Vieyra) Objective Vital Signs Date Time Temp Pulse Resp B/P (MAP) Pulse Ox O2 Delivery O2 Flow Rate FiO2 08/28/17 10:28 98.1 102 17 127/80 94 08/28/17 10:09 98.6 102 17 125/74 96 08/28/17 08:00 98.3 101 19 105/65 (78) 96 08/28/17 00:00 97.8 99 18 126/76 (93) 98 08/27/17 22:49 18 08/27/17 20:00 97.8 100 18 134/75 (94) 96 Intake & Output 08/28/17 08/28/17 07:00 19:00 Intake Total 540 ml 800 ml Output Total 2200 ml Balance -1660 ml 800 ml Intake Oral 540 ml Packed Cells 400 ml Blood Product IV Normal Saline Flush 400 ml Output Urine Total 2200 ml # Bowel Movements 2 Physical Exam CONSTITUTIONAL/GENERAL: This is an adequately nourished patient, in no acute distress TUBES/LINES/DRAINS:PIV SKIN: Dry. No jaundice, rashes, or lesions. Surgical incision to left lateral abdomen hip area intact with no drainage. skin temperature appropriate. Not diaphoretic. EYES: Pupils equal. Extraocular motions intact. No scleral icterus. Fundi not examined. ENT: Hearing grossly normal. Nose without bleeding or purulent drainage. Moist oral mucosa NECK: Trachea midline. Supple, nontender. CARDIOVASCULAR: S1, S2 normal, no audible murmurs, gallops, or rubs. No JVD. RESPIRATORY/CHEST: Symmetric, unlabored respirations. Clear to auscultation. No wheezes, rales, or rhonchi. GASTROINTESTINAL: Abdomen soft, non-tender, nondistended. No guarding. Bowel sounds present. GENITOURINARY: Without palpable bladder distension. MUSCULOSKELETAL: Extremities without clubbing, cyanosis, or edema. NEUROLOGICAL: Awake and alert. Oriented to self, place and situation. Follows commands with all 4 extremities. PSYCHIATRIC: No obvious anxiety/depression. No apparent hallucinations or other psychotic thought process. . (Erasmo Vieyra) Diagnostic Tests Laboratory Laboratory Tests Test 08/26/17 04:25 08/26/17 04:28 08/28/17 04:33 Blood Urea Nitrogen 23 MG/DL (7-18) 24 MG/DL (7-18) Creatinine 1.53 MG/DL (0.60-1.30) 1.49 MG/DL (0.60-1.30) Random Glucose 120 MG/DL (74-106) 80 MG/DL (74-106) Calcium Level 7.6 MG/DL (8.5-10.1) 7.8 MG/DL (8.5-10.1) Magnesium Level 1.8 MG/DL (1.5-2.5) 1.8 MG/DL (1.5-2.5) Sodium Level 140 MEQ/L (136-145) 141 MEQ/L (136-145) Potassium Level 4.3 MEQ/L (3.5-5.1) 4.6 MEQ/L (3.5-5.1) Chloride Level 106 MEQ/L (98-107) 106 MEQ/L (98-107) Carbon Dioxide Level 27.9 MEQ/L (21.0-32.0) 28.5 MEQ/L (21.0-32.0) Anion Gap 6 MEQ/L (5-15) 7 MEQ/L (5-15) Estimat Glomerular Filtration Rate 58 ML/MIN (>89) 59 ML/MIN (>89) White Blood Count 7.3 TH/MM3 (4.0-11.0) Red Blood Count 2.41 MIL/MM3 (4.50-5.90) Hemoglobin 6.9 GM/DL (13.0-17.0) Hematocrit 21.4 % (39.0-51.0) Mean Corpuscular Volume 89.1 FL (80.0-100.0) Mean Corpuscular Hemoglobin 28.6 PG (27.0-34.0) Mean Corpuscular Hemoglobin Concent 32.1 % (32.0-36.0) Red Cell Distribution Width 15.7 % (11.6-17.2) Platelet Count 183 TH/MM3 (150-450) Mean Platelet Volume 7.4 FL (7.0-11.0) (Erasmo Vieyra) Result Diagram: 08/28/17 0433 08/28/17 0433 Procedures 08/08/17 needle biopsy of the L4/L5 disc space/aspiration x-ray 08/14/17-lateral oblique approach for drainage of lumbar retroperitoneal and bilateral psoas muscle abscess by neurosurgery 08/14/17-Retroperitoneal approach to the psoas muscle and drainage of psoas abscess and paraspinal abscess drainage by general surgery . (Erasmo Vieyra) Assessment and Plan Disease Oriented Problem List: (1) Osteomyelitis (2) Cocaine abuse (3) Mycotic aneurysm (4) CKD (chronic kidney disease) stage 3, GFR 30-59 ml/min Comment: Improving. . (5) Hypertension (6) Rheumatoid arthritis Symptom Scale: (1) Pain 0-10 Scale: 10 Comment: All his pain complaints are low back. Inadequately helped by current regimen. Pain normally 9-10 decreasing to 8-9 after parenteral hydromorphone. . . (2) Anxiety Comment: Patient reported to psychiatry that he was feeling anxious . (3) Debility Comment: Progressive . Pertinent Non-Medical Issues Psychosocial:Patient was born and raised in [place]. Patient is . Patient's highest level of education is high school. He is currently unemployed and disabled. Patient has 1 son Gerard Biggs Jr. He has been living with his nephew Jennifer Kendrick for the past 4 years. Spiritual: Patient is Mormonism Legal: No living will. Health care surrogate designation completed 08/09/17 -- he wants his friend Jennifer Manuel to serve. Ethical issues impacting care: None identified at this time . Important Contacts Mireille Rodriguez (Health care surrogate and close friend) -[phone]/ (he has been living with patient for the past 4 years) Kalyan Gee Jr (son and alternate HCS) - [phone] Cell/[phone] work Kelly Gee (ex- and 2nd alternate HCS) Patricia Joy ( of Jennifer Manuel) [phone] Brother- Miles Gee [phone] PATIENT HAS GIVEN PERMISSION TO DISCUSS DETAILS OF HIS CASE AND CARE WITH THE ABOVE. . . Prognosis Mr. Gee is a 57-year-old male with a past medical history significant for chronic back pain, lumbar osteomyelitis and discitis s/p L4-L5 laminectomy 2013 , rheumatoid arthritis, hyperlipidemia, chronic kidney stage III, cocaine abuse and tobacco abuse. Patient presented to the ER on 07/29/17 with complaints of severe back pain. Diagnostic tests revealed lumbar osteomyelitis with retroperitoneal/prevertebral abscess. Clinical course complicated with pain, anxiety and patient's of care and medication. Imaging has shown worsening infection over course of hospitalization. Patient underwent lateral oblique approach for drainage of lumbar retroperitoneal and bilateral psoas muscle abscess on 08/14/17. He now requires long term care administrator intravenous antibiotic therapy. Patient will need placement while going through antibiotic therapy and if he is compliant with treatment he will have a good prognosis. . Code Status: Full Code Plan PLAN: CODE STATUS: Full code Legal decision maker: Patient has been deemed capacitated to participate in medical decision making by psychiatry on 08/08/17. In the event that he is incapacitated patient has designated his friend Jennifer Kendrick to serve as his health care surrogate, and his son Gerard Hull Jr as his alternate healthcare surrogate and if the above mentioned are not able to serve, he chose his ex- Kelly Gee as his other alternate Healthcare Surrogate. Goals: Remain aggressive. Per case management notes on 08/24 patient will remain inhouse for antibiotic therapy and possible surgery with instrumentation due to difficult placement.Patient expressing that he knows he has a long ways before completing antibiotic therapy inhouse and has to be strong to get through it. Patient is willing to go through surgery after antibiotic therapy if neurosurgeon advises him to do so. He states that he would rather go through everything that needs to be done while he is in the hospital. SYMPTOMS: * Pain: Patient complaining of severe lower back pain. Patient had osteomyelitis and is s/p drainage of lumbar retroperitoneal and bilateral psoas muscle abscess 08/14/17. Patient endorsing "nerve" neuropathic pain from lower back radiating towards his legs which is exacerbated with activity. Recommending renal impairment low dose Gabapentin. * Anxiety: Patient reported to psychiatry that he feels anxious. Has lorazepam ordered q 2 hours prn. Appears to be adequate. Denies feeling anxious, instead reports feeling down after he received news that his young brother . No further recommendation at this time. * Debility: Patient is being progressively getting weaker and not able to ambulate long distances at home due to severe back pain. Ambulated at home with a cane. Physical therapy recommended home with no PT. Last seen with PT 08/23. Patient ambulating from bed to bedside commode. Recommending PT to continue following with patient since he is going to be here for a long time. == Palliative care will continue to follow to assist with symptom management and to further clarify goals of medical treatment as the clinical course evolves. . (Erasmo Vieyra) Attestation To help prompt me to consider important information that might be impacting today's encounter and assessment, information from prior notes written by myself or my colleagues may have been "brought forward" into today's note. My signature on this note, however, is an attestation that I personally performed the exam, history, and/or decision-making noted today, and, unless otherwise indicated, the interactions with patient, family, and staff as well as the review of records all occurred today. I also attest that the listed assessment and stated plan reflect my best clinical judgment today based on the combination of historical information, prior notes, and today's exam/ interactions. When time spent is documented, it refers only to time spent today by the signer, or if indicated, combined time spent today by collaborating physician/nurse practitioner. (Erasmo Vieyra) Collaborating MD Comments Chart reviewed. Case discussed with palliative care RASPBERRY CHECKER. Above RASPBERRY CHECKER note reviewed and I concur. . (Matt Toney MD) Erasmo Vieyra August 28, 2017 16:58 Matt Toney MD Sep 15, 2017 15:37
--- NOTE | 2017-08-28 17:25 | HHI.PR ---
Subjective Remarks Patient c/o pain radiating pain from his back into lower extremities. c/o numbness to feet hemoglobin low Objective Vitals Vital Signs Date Time Temp Pulse Resp B/P (MAP) Pulse Ox O2 Delivery O2 Flow Rate FiO2 08/28/17 16:00 97.8 95 19 131/82 (98) 100 08/28/17 10:28 98.1 102 17 127/80 94 08/28/17 10:09 98.6 102 17 125/74 96 08/28/17 08:00 98.3 101 19 105/65 (78) 96 08/28/17 00:00 97.8 99 18 126/76 (93) 98 08/27/17 22:49 18 08/27/17 20:00 97.8 100 18 134/75 (94) 96 I/O 08/27/17 08/27/17 08/27/17 08/28/17 08/28/17 08/28/17 06:59 14:59 22:59 06:59 14:59 22:59 Intake Total 540 ml 1180 ml 540 ml 800 ml Output Total 1550 ml 1500 ml 2200 ml Balance -1010 ml -320 ml -1660 ml 800 ml Intake Oral 540 ml 1180 ml 540 ml Packed Cells 400 ml Blood Product IV Normal Saline Flush 400 ml Output Urine Total 1550 ml 1500 ml 2200 ml # Bowel Movements 0 2 Result Diagram: 08/28/173 08/28/17 043 Objective Remarks General: No acute distress. Heart: Regular rate and rhythm. No murmur. Lungs: Clear to auscultation bilaterally. No wheezes, rales, or rhonchi. Breathing is nonlabored. Abdomen: Soft, nontender, nondistended. Positive bowel sounds. Extremities: No lower extremity edema. Psych: Alert, oriented, answers questions appropriately. Neuro: No focal deficits noted. Back: Tender to palpation around the sacrum. Psych: Slightly flattened affect. 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 Osteomyelitis of the L5 vertebra/bilateral psoas muscle abscess/ bacteremia Status post CT-guided removal of fluid for culture as well as disc biopsy on 07/31. Appreciate neurosurgery, vascular surgery, infectious disease recommendations. Status post drainage of abscess on 08/14/17. Wound culture is negative. Mycobacterial and fungal cultures are pending. Bacteremia with Strep Anginosis. - Continue antibiotics per ID. - follow up with neurosurgery. Jennifer removed 08/26. - 08/28 as per neurosurgery recommendations the patient will need at least 6 weeks of IV antibiotics before procedure. Continue IV Rocephin. Follow-up repeat MRI. 2. Encephalopathy Likely toxic secondary to drug abuse. S/P lumbar puncture. Evaluated by psychiatry, patient is capable of making decisions. - resolved. - Avoid overly sedating medications. 3. Cocaine abuse Urine toxicology positive for cocaine. There was concern that the patient may have used cocaine while in the hospital as his urine drug screen was positive 8 days after admission. - cessation instruction. - will allow visitors again. 4. Right iliac artery aneurysm Patient noted to have a 2.9 cm aneurysm of the right internal iliac artery, possibly mycotic aneurysm. This was an incidental finding. He denies IV drug abuse. Appreciate vascular surgery recommendations. - No surgery planned at this time. 5. Chronic kidney disease stage II with acute kidney injury. Creatinine seems stable. - monitor and avoid nephrotoxins. 6. Hypoglycemia Episodes of low blood sugar into the 60s. Blood sugars more stable. - ADAT. Continue Ensure. - check an insulin level. Obtain abdominal US if elevated. 08/28 insulin level pending. Follow-up. 7. Anemia Seems chronic. - check Hemoccult. - follow CBC. 08/28 anemia likely multifactorial. Follow-up stool blood Hemoccult. 8. Hypertension Blood pressure well controlled. -Clonidine discontinued - continue amlodipine. DVT prophylaxis: SCDs. Discharge Planning Continue to monitor on the medical floor. Patient will need ID clearance prior to discharge. Omari Van MD August 28, 2017 17:25
[2017-08-28] MEDS ORDERED: GADODIAMIDE PF 287 MG/ML 5 ML VIAL (for RAD MRI) IVCONTRAST ONE (18:42)
--- NOTE | 2017-08-28 19:25 | RADRPT ---
EXAM DATE: 08/28/2017 7:08 PM EDT AGE/SEX: 57 years / Male INDICATIONS: Abscess. CLINICAL DATA: This is the patient's subsequent encounter. Patient reports that signs and symptoms h ave been present for 1 month and indicates a pain score of 4/10. MEDICAL/SURGICAL HISTORY: Hypercholesterolemia. Hypertension. Renal insufficiency, chronic. D iscectomy, lumbar. Bilateral wrist, Left shoulder, Bilateral knee sx. [place] [facility] [place] W & W/O CONTRAST[place]/08/2017. . TECHNIQUE: Multiplanar, multisequence MRI examination of the lumbar spine was performed without and with 20 ml Omniscan (gadodiamide) contrast as a single exam dose. FINDINGS: The most caudal-appearing lumbar vertebra is numbered as L5.. Significant inflammatory aaron nges remain at the L4-5 level and the L5-S1 level. There has been improvement in the retroperitoneum with less inflammatory changes beginning at L3 extending down the central as iliopsoas as into the pe lvis. Inflammatory changes are seen in the erector spinae muscles. There is a fluid collection measur ing 5.4 cm in the left iliopsoas as at the level of L4. Extensive inflammatory changes persist in the retroperitoneum. From T12 to L3 disc spaces remain normal. There is no evidence for discitis or marrow edema to sugges t osteomyelitis. Beginning in mid body of L4 through mid body of S1 changes consistent with marrow ed ceci are evident. L3-L4: Disc and neural foramen remain unremarkable. L4-L5: Central fluid remains in the disc space at L4-5. This disc space is slowly decreasing in hei ght. Inflammatory changes remain in the dura at the L4-5 level without obvious epidural abscess. L5-S1: The L5-S1 disc remains normal. Inflammatory changes extending into the sacrum and iliopsoas. CONCLUSION: 1. Improvement as above. Persistent fluid remains on the left. Persistent evidence for inflammatory process remains at the L4-5 disc. 2. Less inflammatory changes in the retroperitoneum. Electronically signed by: Roly Reina MD 08/28/2017 7:24 PM EDT
[2017-08-28 20:00] VITALS: BP 123/77; PULSE 98; RESP 20; TEMP 97.2; O2SAT 99
[2017-08-28 20:36] LABS: HEMATOCRIT 26.1 % (39.0-51.0); HEMOGLOBIN 8.5 GM/DL (13.0-17.0)
[2017-08-29] VITALS: BP 128/87; PULSE 89; RESP 18; TEMP 97.5; O2SAT 94
[2017-08-29] MEDS: oxyCODONE/ACETAMINOPHEN 5 MG/325 MG TAB PO PRN ×5 (03:27→22:48)
[2017-08-29 08:00] VITALS: BP 155/89; PULSE 102; RESP 17; TEMP 98.1; O2SAT 91
[2017-08-29] MEDS: SODIUM CHLORIDE 0.9% FLUSH 10 ML FLUSH IV FLUSH SCH ×2 (08:52→21:35)
[2017-08-29] MEDS: predniSONE 10 MG TAB PO SCH (08:53)
[2017-08-29] MEDS: FAMOTIDINE 20 MG TAB PO SCH ×2 (08:53→21:33)
[2017-08-29] MEDS: POLYETHYLENE GLYCOL 17 GM PKG PO SCH (08:54)
[2017-08-29] MEDS: DOCUSATE SODIUM 50 MG/SENNA 8.6 MG TAB PO SCH ×2 (08:54→21:00)
[2017-08-29] MEDS: LACTIC ACID (AMMONIUM LACTATE) 12% LOTION 225 GM BTL TOPICAL SCH ×4 (08:56→21:00)
--- NOTE | 2017-08-29 10:27 | HHI.IDPN ---
Subjective Subjective Remarks Patient seen and examined on behalf of Dr. Goldstein Mr. Gee is a 57-year-old -[place] male with past medical history significant for rheumatoid arthritis on prednisone. From infectious disease standpoint his past medical history significant for prior history of strep epidural abscess as well as bacteremia treated with IV antibiotics and also needing L4 partial laminectomy in 2013 as well as an abscess on the skin of his back.. His past medical history is also significant for chronic kidney disease stage III, chronic back pain, cocaine abuse and tobacco abuse who presented to the emergency department with complaints of severe back pain. Patient is an extremely poor historian and reports that he has had a prior visit to the emergency room on July 23, 2017 with similar symptoms. An MRI of the L-spine did not show any evidence of infection patient was asked to follow-up with Dr. Pineda whom he has seen in the past. On arrival, BP 125/71, HR 86, O2 sat 100% RA, Afebrile. WBC 20.8. Na 128. K+ 5.5. Creatinine 2.84, previously 2.97 on 07/23/2017. INR 1.1. UA negative for UTI. 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 S/p Vanc/ Rocephin in ER. At the time of my evaluation patient is on a regular floor. Appears to be comfortable not in significant pain involving his extremities. Patient reports tingling numbness and extreme pain in his bilateral lower extremities right more than left. Patient denies any bowel bladder incontinence. Denies any decrease in perineal sensation. Infectious diseases consulted for evaluation and management of discitis and epidural abscess. Notes reviewed patient complaining of dull constant ache in low back and upper buttocks with sharp shooting pains down both legs into the toes having a difficult time finding a comfortable position no fever or chills no rash no N/V no diarrhea afebrile Hgb 8.5 s/p transfusion 08/14 s/p drainage lumbar retroperitoneal and bilateral psoas muscle abscess, with neg cultures 07/29 BCX + strep anginosus/milleri. Repeat BCX negative Repeat MRI shows persistent inflammation on the left and inflammation at L45 Antibiotics IV Ceftriaxone q 12 Current Medications Medications (Trade) Dose Ordered Sig/Manjit Route Start Time Stop Time Status Last Admin (NS Flush) 2 ml UNSCH PRN IV FLUSH 07/29/17 23:15 08/10/17 06:06 (NS Flush) 2 ml BID IV FLUSH 07/30/17 09:00 08/29/17 08:52 (Zofran Inj) 4 mg Q6H PRN IVP 07/29/17 23:15 (Tylenol) 650 mg Q6H PRN PO 07/29/17 23:15 08/15/17 07:38 (Emilie-Colace) 1 tab BID PO 07/30/17 09:00 08/28/17 08:56 (Milk Of Magnesia Liq) 30 ml Q12H PRN PO 07/29/17 23:15 (Senokot) 17.2 mg Q12H PRN PO 07/29/17 23:15 (Dulcolax Supp) 10 mg DAILY PRN RECTAL 07/29/17 23:15 (Lactulose Liq) 30 ml DAILY PRN PO 07/29/17 23:15 08/19/17 13:55 (Tums Chew) 500 mg Q2H PRN CHEW 08/02/17 19:30 08/05/17 13:49 Ceftriaxone Sodium 2000 mg/ Sodium Chloride 100 ml @ 200 mls/hr Q12H IV 08/03/17 17:00 08/28/17 22:03 (Catapres) 0.1 mg Q6H PRN PO 08/04/17 15:30 08/06/17 23:44 (Lac-Hydrin 12% Lotion) 1 applic BID TOPICAL 08/04/17 21:00 08/29/17 08:56 (Pepcid) 20 mg BID PO 08/05/17 21:00 08/29/17 08:53 (Norvasc) 10 mg DAILY PO 08/06/17 11:00 08/29/17 08:53 (Vasotec Inj) 2.5 mg Q6H PRN IV PUSH 08/06/17 11:00 08/07/17 22:20 (Percocet 5-325 Mg) 1 tab Q4HR PRN PO 08/09/17 10:00 08/29/17 08:54 (Narcan Inj) 0.4 mg UNSCH PRN IV PUSH 08/14/17 19:30 (Proair Hfa Inh) 2 puff Q4H PRN INH 08/14/17 20:30 (Flexeril) 5 mg TID PRN PO 08/14/17 20:30 08/28/17 21:57 (Lac-Hydrin 12% Lotion) 1 applic BID TOPICAL 08/17/17 11:00 08/26/17 07:50 (Miralax) 17 gm DAILY PO 08/18/17 09:00 08/21/17 08:51 (Deltasone) 10 mg DAILY PO 08/21/17 09:00 08/29/17 08:53 Lines Line sites with no e.o infection. Past Medical History reviewed. (Jeni Reed) Allergies: Coded Allergies: *MDRO Multi-Drug Resistant Organism (Verified Adverse Reaction, Unknown, ) MRSA (leg wound) - 10/2006 MRSA PCR screen positive - 10/2014 Objective . Vital Signs Date Time Temp Pulse Resp B/P (MAP) Pulse Ox O2 Delivery O2 Flow Rate FiO2 08/29/17 08:00 98.1 102 17 155/89 (111) 91 08/29/17 00:00 97.5 89 18 128/87 (101) 94 08/28/17 20:00 97.2 98 20 123/77 (92) 99 08/28/17 16:00 97.8 95 19 131/82 (98) 100 08/28/17 10:28 98.1 102 17 127/80 94 . Laboratory Tests Test 08/28/17 04:33 08/28/17 20:07 White Blood Count 7.3 TH/MM3 Red Blood Count 2.41 MIL/MM3 Hemoglobin 6.9 GM/DL 8.5 GM/DL Hematocrit 21.4 % 26.1 % Mean Corpuscular Volume 89.1 FL Mean Corpuscular Hemoglobin 28.6 PG Mean Corpuscular Hemoglobin Concent 32.1 % Red Cell Distribution Width 15.7 % Platelet Count 183 TH/MM3 Mean Platelet Volume 7.4 FL Laboratory Tests Test 08/28/17 04:33 08/29/17 05:34 Blood Urea Nitrogen 24 MG/DL Creatinine 1.49 MG/DL Random Glucose 80 MG/DL Calcium Level 7.8 MG/DL Magnesium Level 1.8 MG/DL Sodium Level 141 MEQ/L Potassium Level 4.6 MEQ/L Chloride Level 106 MEQ/L Carbon Dioxide Level 28.5 MEQ/L Anion Gap 7 MEQ/L Estimat Glomerular Filtration Rate 59 ML/MIN C-Reactive Protein 4.88 MG/DL Imaging Last Impressions Lumbar Spine MRI 08/28/17 0000 Signed Impressions: CONCLUSION: 1. Improvement as above. Persistent fluid remains on the left. Persistent evid ence for inflammatory process remains at the L4-5 disc. 2. Less inflammatory changes in the retroperitoneum. Chest X-Ray 08/15/17 0000 Signed Impressions: Service Date/Time: Tuesday, August 15, 2017 11:34 - CONCLUSION: Mild compensated cardiomegaly Roly Reina MD FACR Lumbar Puncture Fluoroscopy 08/08/17 0000 Signed Impressions: Service Date/Time: Tuesday, August 08, 2017 15:42 - CONCLUSION: Uncomplicated fluoroscopically guided lumbar puncture. Fady Chan MD Needle Biopsy/Aspiration X-Ray 07/31/17 0000 Signed Impressions: Service Date/Time: Monday, July 31, 2017 13:29 - CONCLUSION: Uncomplicated needle biopsy of the L4/L5 disc space as above. Candelario Reina MD Abdomen/Pelvis CT 07/29/17 0000 Signed Impressions: Service Date/Time: Saturday, July 29, 2017 22:14 - CONCLUSION: 1. Significant new prevertebral soft tissue fullness and stranding centered at the L5 level. There is associated sclerosis and erosive changes in the anterior L5 vertebral body which appear unchanged from recent exams. Overall, findings are concerning for discitis and osteomyelitis. Consider repeat MRI examination for further evaluation. 2. 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 However, evaluation is significantly limited due to lack of IV contrast on this exam. This was not present on remote prior CT exam. A mycotic aneurysm cannot be entirely excluded. Contrast enhanced examination would be greatly beneficial in further evaluation. 3. Nodular appearing liver contour consistent with cirrhosis. 4. IVC filter in place. 5. Cholelithiasis. Tanner Jones MD Physical Exam GENERAL: Well developed well nourished male patient, INAD. Awake and alert. Lying in hospital bed, moving his legs around trying to find comfortable position. SKIN: Warm and dry. No obvious rash. BLE with extremely dry skin improved. HEAD: Atraumatic. Normocephalic. EYES: EOMI. No scleral icterus. No injection or drainage. ENT: No gross bleeding. MMM. NECK: Trachea midline. Moves neck in all directions. No rigidity noted. CARDIOVASCULAR: Regular rate and rhythm. RESPIRATORY: Nonlabored. Diminished. Clear to auscultation anteriorly. GASTROINTESTINAL: Soft, postop with surgical incision over left side of abdomen with dry and intact dressing, incision appears to be healing well, steristrips in place. ALY drains removed with sites appearing to be healing well. MUSCULOSKELETAL: No pedal edema NEUROLOGICAL: Awake and alert. Moves all extremities spontaneously. Normal speech. PSYCHIATRIC: Calm and cooperative. IV line sites with no e.o infection (Jeni Reed) Assessment & Plan Remarks Strep bacteremia, probable endocarditis Probable meningitis based on glucose and total protein (partially treated by the time LP done) Epidural abscess Discitis. - Repeat MRI shows persistent fluid remains on the left. Persistent evidence for inflammatory process remains at the L4-5 disc and Less inflammatory changes in the retroperitoneum. Bilateral psoas fluid collection s/p I&D 08/14 with 250ml yellowish purulent material removed. Fever postop, resolved. 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 Immune compromised host on steroids Acute on chronic kidney disease, resolved Hyperkalemia, resolved Hep B reactive Anemia, hgb 6.9 s/p transfusion hgb 8.5 Recs MRI shows persistent fluid remains on the left. Persistent evidence for inflammatory process remains at the L4-5 disc and less inflammatory changes in the retroperitoneum.improvement in the retroperitoneum with less inflammatory changes. CRP dropped from 22 to 4.88 Continue on IV Ceftriaxone q 12h (Jeni Reed) Remarks The exam, history, and the medical decision-making described in the above note were completed with the assistance of the mid-level provider. I reviewed and agree with the findings presented. I attest that I had a [id number] encounter with the patient on the same day, and personally performed and documented my assessment and findings in the medical record. MRI findings relayed to , who will review to let me know if IR guided aspiration or any other procedure needed. Continue Ceftriaxone IV q12hrs. Recd call from Dr.Steven Reina: the fluid on MRI appears multiloculated. Recommends CT with contrast to help decide IR guided drainage of one of the fluid pockets to assess if new infection. (Latricia Goldstein MD) Jeni Reed August 29, 2017 10:27 Latricia Goldstein MD August 29, 2017 12:34
[2017-08-29] MEDS: cefTRIAXone INJ 2,000 MG in SODIUM CHLORIDE 0.9% INJ 100 ML IV SCH ×2 (11:39→21:37)
[2017-08-29 12:00] VITALS: BP 138/89; PULSE 102; RESP 18; TEMP 98.3; O2SAT 97
--- NOTE | 2017-08-29 13:46 | HHI.PR ---
Subjective Remarks The patient complains of pain in his lower back especially when he stands up, pain radiates down to the buttocks and legs and is described as shooting. The patient denies fevers or chills. Denies nausea, vomiting. Objective Vitals Vital Signs Date Time Temp Pulse Resp B/P (MAP) Pulse Ox O2 Delivery O2 Flow Rate FiO2 08/29/17 12:00 98.3 102 18 138/89 (105) 97 08/29/17 09:54 18 08/29/17 08:00 98.1 102 17 155/89 (111) 91 08/29/17 00:00 97.5 89 18 128/87 (101) 94 08/28/17 20:00 97.2 98 20 123/77 (92) 99 08/28/17 16:00 97.8 95 19 131/82 (98) 100 I/O 08/28/17 08/28/17 08/28/17 08/29/17 08/29/17 08/29/17 07:00 15:00 23:00 07:00 15:00 23:00 Intake Total 540 ml 900 ml 1380 ml Output Total 2200 ml 1000 ml 3100 ml Balance -1660 ml 900 ml 380 ml -3100 ml Intake Oral 540 ml 980 ml IV Total 100 ml Packed Cells 400 ml 400 ml Blood Product IV Normal Saline Flush 400 ml Output Urine Total 2200 ml 1000 ml 3100 ml # Bowel Movements 2 1 Result Diagram: 08/28/17200608/28/17 0433 Objective Remarks General: No acute distress. Heart: Regular rate and rhythm. No murmur. Lungs: Clear to auscultation bilaterally. No wheezes, rales, or rhonchi. Breathing is nonlabored. Abdomen: Soft, nontender, nondistended. Positive bowel sounds. Extremities: No lower extremity edema. Psych: Alert, oriented, answers questions appropriately. Neuro: No focal deficits noted. Back: Tender to palpation around the sacrum. Psych: Slightly flattened affect. Procedures 08/14/17 lateral oblique approach for drainage of lumbar retroperitoneal and bilateral psoas muscle abscess Medications and IVs Last Impressions Lumbar Spine MRI 08/28/17 0000 Signed Impressions: CONCLUSION: 1. Improvement as above. Persistent fluid remains on the left. Persistent evid ence for inflammatory process remains at the L4-5 disc. 2. Less inflammatory changes in the retroperitoneum. Chest X-Ray 08/15/17 0000 Signed Impressions: Service Date/Time: Tuesday, August 15, 2017 11:34 - CONCLUSION: Mild compensated cardiomegaly Roly Reina MD FACR Lumbar Puncture Fluoroscopy 08/08/17 0000 Signed Impressions: Service Date/Time: Tuesday, August 08, 2017 15:42 - CONCLUSION: Uncomplicated fluoroscopically guided lumbar puncture. Fady Chan MD Needle Biopsy/Aspiration X-Ray 07/31/17 0000 Signed Impressions: Service Date/Time: Monday, July 31, 2017 13:29 - CONCLUSION: Uncomplicated needle biopsy of the L4/L5 disc space as above. Candelario Reina MD Abdomen/Pelvis CT 07/29/17 0000 Signed Impressions: Service Date/Time: Saturday, July 29, 2017 22:14 - CONCLUSION: 1. Significant new prevertebral soft tissue fullness and stranding centered at the L5 level. There is associated sclerosis and erosive changes in the anterior L5 vertebral body which appear unchanged from recent exams. Overall, findings are concerning for discitis and osteomyelitis. Consider repeat MRI examination for further evaluation. 2. 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 However, evaluation is significantly limited due to lack of IV contrast on this exam. This was not present on remote prior CT exam. A mycotic aneurysm cannot be entirely excluded. Contrast enhanced examination would be greatly beneficial in further evaluation. 3. Nodular appearing liver contour consistent with cirrhosis. 4. IVC filter in place. 5. Cholelithiasis. 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 Osteomyelitis of the L5 vertebra/bilateral psoas muscle abscess/ bacteremia Status post CT-guided removal of fluid for culture as well as disc biopsy on 07/31. Appreciate neurosurgery, vascular surgery, infectious disease recommendations. Status post drainage of abscess on 08/14/17. Wound culture is negative. Mycobacterial and fungal cultures are pending. Bacteremia with Strep Anginosis. - Continue antibiotics per ID. - follow up with neurosurgery. Jennifer removed 08/26. - 08/28 as per neurosurgery recommendations the patient will need at least 6 weeks of IV antibiotics before procedure. Continue IV Rocephin. Follow-up repeat MRI. - 08/29 repeat MRI shows a persistence of fluid on the left. Persistent evidence of inflammatory process remains at the L4-5 disc. Discussed the case with Dr. Goldstein from ID who relayed to Dr. Sanchez will let her know if I recommend aspiration or any other procedures needed. We will start the patient on gabapentin for neuropathic pain at the lower back. 2. Encephalopathy Likely toxic secondary to drug abuse. S/P lumbar puncture. Evaluated by psychiatry, patient is capable of making decisions. - resolved. - Avoid overly sedating medications. 3. Cocaine abuse Urine toxicology positive for cocaine. There was concern that the patient may have used cocaine while in the hospital as his urine drug screen was positive 8 days after admission. - cessation instruction. - will allow visitors again. 4. Right iliac artery aneurysm Patient noted to have a 2.9 cm aneurysm of the right internal iliac artery, possibly mycotic aneurysm. This was an incidental finding. He denies IV drug abuse. Appreciate vascular surgery recommendations. - No surgery planned at this time. 5. Chronic kidney disease stage II with acute kidney injury. Creatinine seems stable. - monitor and avoid nephrotoxins. 6. Hypoglycemia Episodes of low blood sugar into the 60s. Blood sugars more stable. - ADAT. Continue Ensure. - check an insulin level. Obtain abdominal US if elevated. 08/28 insulin level pending. Follow-up. 7. Anemia Seems chronic. - check Hemoccult. - follow CBC. 08/28 anemia likely multifactorial. Follow-up stool blood Hemoccult. 8. Hypertension Blood pressure well controlled. -Clonidine discontinued - continue amlodipine. DVT prophylaxis: SCDs. Discharge Planning Continue to monitor on the medical floor. Patient will need ID clearance prior to discharge. Omari Van MD August 29, 2017 13:46
[2017-08-29] MEDS: GABAPENTIN 300 MG CAP PO SCH ×2 (13:50→18:40)
[2017-08-29 14:57] LABS: INTERNATIONAL NORMALIZED RATIO 1.1 RATIO; PROTHROMBIN TIME - PATIENT 11.3 SEC (9.8-11.6)
[2017-08-29 15:09] LABS: ALT (GPT) 33 U/L (12-78); AST (GOT) 56 U/L (15-37); BICARBONATE 27.5 MEQ/L (21.0-32.0); BLOOD UREA NITROGEN 25 MG/DL (7-18); CALCIUM 7.9 MG/DL (8.5-10.1); CHLORIDE 102 MEQ/L (98-107); CREATININE 1.53 MG/DL (0.60-1.30); GLOMERULAR FILTRATION RATE 58 ML/MIN (>89); GLUCOSE,RANDOM 102 MG/DL (74-106); SODIUM (NA) 138 MEQ/L (136-145)
[2017-08-29 15:12] LABS: ALKALINE PHOSPHATASE 307 U/L (45-117); TOTAL BILIRUBIN ADULT 0.3 MG/DL (0.2-1.0); TOTAL PROTEIN 8.6 GM/DL (6.4-8.2)
[2017-08-29 16:00] VITALS: BP 112/75; PULSE 102; RESP 17; TEMP 98.1; O2SAT 98
[2017-08-29 17:33] LABS: AUTOMATED NEUTROPHIL # 6.1 TH/MM3 (1.8-7.7); BASOPHIL % 0.5 % (0.0-2.0); EOSINOPHIL # 0.2 TH/MM3 (0-0.4); EOSINOPHIL % 2.4 % (0.0-4.0); HEMATOCRIT 27.3 % (39.0-51.0); LYMPH % 11.2 % (9.0-44.0); LYMPHOCYTE # 0.9 TH/MM3 (1.0-4.8); MEAN CELL VOLUME 89.1 FL (80.0-100.0); MEAN CORPUSCULAR HEMOGLOBIN 29.5 PG (27.0-34.0); MEAN CORPUSCULAR HGB CONC 33.1 % (32.0-36.0); MEAN PLATELET VOLUME 7.7 FL (7.0-11.0); MONO % 6.8 % (0.0-8.0); MONOCYTE # 0.5 TH/MM3 (0-0.9); NEUT % 79.1 % (16.0-70.0); PLATELET COUNT 185 TH/MM3 (150-450); RED BLOOD COUNT 3.06 MIL/MM3 (4.50-5.90); RED CELL DISTRIBUTION WIDTH 16.2 % (11.6-17.2); WHITE BLOOD COUNT 7.7 TH/MM3 (4.0-11.0)
[2017-08-29 20:00] VITALS: BP 120/82; PULSE 95; RESP 18; TEMP 97.8; O2SAT 97
--- NOTE | 2017-08-29 20:37 | RADRPT ---
EXAM DATE: 08/29/2017 8:23 PM EDT AGE/SEX: 57 years / Male INDICATIONS: Osteomyelitis, epidural abscess. CLINICAL DATA: This is the patient's initial encounter. Patient reports that signs and symptoms have been present for 1 day and indicates a pain score of 4/10. MEDICAL/SURGICAL HISTORY: Cardiovascular disease. Anemia. Stage 1 kidney disease. None. RADIATION DOSE: 45.04 CTDI (mGy) ; Patient positioning COMPARISON: No prior [facility] exams available for comparison. TECHNIQUE: Contiguous axial images were acquired with a multirow detector CT scanner after intraveno us administration of 95 ml Omnipaque 350 (iohexol) nonionic water-soluble contrast as a single exam dose. Multiplanar reconstructions in the sagittal and coronal plane were also performed. Using autom ated exposure control and adjustment of the mA and/or kV according to patient size, radiation dose wa s kept as low as reasonably achievable to obtain optimal diagnostic quality images. FINDINGS: Vertebrae: There is destructive changes involving the L4-L5 disc space characteristic for discitis. There are erosive changes involving the inferior endplate of L4 and superior endplate of L5. The dest ructive changes appear to extend into the mid body of L5 characteristic for osteomyelitis.. There is narrowing of the L4-L5 disc space. There is mild grade 1 anterior spondylolisthesis of L4 over L5. Th e rest of the lumbar vertebral bodies appear to be grossly intact. These findings correlate with the recent MRI of the lumbar spine. Post Contrast: No abnormal areas of enhancement are seen in the cord, dural or paraspinal regions. T12-L1: The thecal sac has a normal diameter. No evidence of disc bulge or protrusion. The neural foramina are patent bilaterally. L1-L2: The thecal sac has a normal diameter. No evidence of disc bulge or protrusion. The neural f oramina are patent bilaterally. Bilateral facet arthritis. L2-L3: Diffuse broad-based bulging. The neural foramina appear to be patent bilaterally. There is bi lateral facet arthritis. L3-L4: Diffuse broad-based bulging. The neural foramina appear to be patent bilaterally. There is bi lateral facet arthritis. L4-L5: There appears to be diffuse broad-based bulging with limited visualization of the spinal raleigh l due to the soft tissue changes associated with the discitis at this level. There appears to be narr owing of the neural foramina bilaterally. There is extensive and prominent bilateral facet arthritis. The limited visualization of the spinal canal at this level limits the evaluation for an epidural ab scess. There appears to be extensive paraspinal soft tissue swelling. There are destructive changes i n the body of L5 consistent with osteomyelitis. L5-S1: The thecal sac has a normal diameter. No evidence of disc bulge or protrusion. The neural f oramina are patent bilaterally. Bilateral facet arthritis. CONCLUSION: 1. There is destructive changes involving the disc space at L4-5 characteristic for discitis. 2. There are destructive changes predominantly in the body of L5 consistent with osteomyelitis. Ther e is prominent paraspinal soft tissue swelling at the L4-L5 level. 3. Mild grade 1 anterior spondylolisthesis of L4 over L5. 4. Limited visualization of the spinal canal at L4-5 due to the inflammatory changes. 5. Bilateral facet arthritis at multiple levels. 6. Broad-based bulging at L2-3 and L3-4. Electronically signed by: Rao King MD 08/29/2017 8:36 PM EDT
[2017-08-29] MEDS: CYCLOBENZAPRINE HCL 10 MG TAB PO PRN (21:33)
[2017-08-29] MEDS ORDERED: IOHEXOL 350 MG/ML 10 ML VIAL (for RAD DIAG) IVCONTRAST ONE (22:23)
[2017-08-30] VITALS: BP 118/73; PULSE 85; RESP 18; TEMP 98.3; O2SAT 100
[2017-08-30 06:00] LABS: BASOPHIL # 0.1 TH/MM3 (0-0.2); BASOPHIL % 0.9 % (0.0-2.0); EOSINOPHIL # 0.2 TH/MM3 (0-0.4); EOSINOPHIL % 3.4 % (0.0-4.0); HEMATOCRIT 26.6 % (39.0-51.0); HEMOGLOBIN 8.6 GM/DL (13.0-17.0); LYMPH % 12.8 % (9.0-44.0); LYMPHOCYTE # 0.9 TH/MM3 (1.0-4.8); MEAN CORPUSCULAR HEMOGLOBIN 28.7 PG (27.0-34.0); MEAN CORPUSCULAR HGB CONC 32.2 % (32.0-36.0); MEAN PLATELET VOLUME 7.1 FL (7.0-11.0); MONO % 10.7 % (0.0-8.0); MONOCYTE # 0.7 TH/MM3 (0-0.9); NEUT % 72.2 % (16.0-70.0); PLATELET COUNT 178 TH/MM3 (150-450); RED BLOOD COUNT 2.99 MIL/MM3 (4.50-5.90); RED CELL DISTRIBUTION WIDTH 16.1 % (11.6-17.2); WHITE BLOOD COUNT 6.9 TH/MM3 (4.0-11.0)
[2017-08-30 06:20] LABS: AST (GOT) 47 U/L (15-37); BICARBONATE 29.4 MEQ/L (21.0-32.0); BLOOD UREA NITROGEN 26 MG/DL (7-18); CALCIUM 7.6 MG/DL (8.5-10.1); CHLORIDE 103 MEQ/L (98-107); CREATININE 1.43 MG/DL (0.60-1.30); GLOMERULAR FILTRATION RATE 62 ML/MIN (>89); GLUCOSE,RANDOM 64 MG/DL (74-106); MAGNESIUM 1.8 MG/DL (1.5-2.5); SODIUM (NA) 139 MEQ/L (136-145)
[2017-08-30 06:21] LABS: ALKALINE PHOSPHATASE 287 U/L (45-117); ALT (GPT) 28 U/L (12-78); PHOSPHORUS 4.2 MG/DL (2.5-4.9); TOTAL BILIRUBIN ADULT 0.3 MG/DL (0.2-1.0); TOTAL PROTEIN 8.3 GM/DL (6.4-8.2)
[2017-08-30 07:56] VITALS: BP 111/77; PULSE 87; RESP 16; TEMP 98.6; O2SAT 97
[2017-08-30] MEDS: POLYETHYLENE GLYCOL 17 GM PKG PO SCH (08:20)
[2017-08-30] MEDS: GABAPENTIN 300 MG CAP PO SCH ×3 (08:22→17:51)
[2017-08-30] MEDS: FAMOTIDINE 20 MG TAB PO SCH ×2 (08:22→21:32)
[2017-08-30] MEDS: SODIUM CHLORIDE 0.9% FLUSH 10 ML FLUSH IV FLUSH SCH ×2 (08:22→21:34)
[2017-08-30] MEDS: predniSONE 10 MG TAB PO SCH (08:22)
[2017-08-30] MEDS: DOCUSATE SODIUM 50 MG/SENNA 8.6 MG TAB PO SCH ×2 (08:23→21:00)
[2017-08-30] MEDS: LACTIC ACID (AMMONIUM LACTATE) 12% LOTION 225 GM BTL TOPICAL SCH ×4 (08:23→21:00)
--- NOTE | 2017-08-30 10:28 | PD.CAR.PN ---
CVT Progress Note Subjective/Hospital Course: Referral received Studies reviewed Full consult to follow Oanh Craig 08/10/2017 Patient with retroperitoneal infection involving the vertebra and paraspinal muscles and psoas muscles extending toward the pelvis, with multiple abscesses throughout I have discussed the care with Dr. Felipe, Dr. Toney and the patient At this point the most preferred way to access this would be through a left preperitoneal approach in the same fashion we access abdominal aorta for preperitoneal lateral aneurysmorrhaphy. This incision would give quite plenty of space and access to drain all this. While technically this is a quite advantageous approach, I have to stress that ability to completely eliminate the infection and cure the patient permanently is very limited. The procedure is mainly meant to contain the infection clean everything up and minimize the sequela of the same If patient agrees with surgery has to be cleared that this is not most likely going to cure him but will definitely slow the infection down set it back and make it controllable. In addition the surgery itself carries obviously inherent risks of prolonged morbidity and mortality ranging in about 5-10% range The other option is not to do anything and make patient comfortable with palliative care but this will definitely leave the patient's demise I will be happy to discuss this with other family members this patient may desire and I will definitely be available for the surgery any time 08/13/2017 Patient with extensive retroperitoneal infections due to osteomyelitis now spread to the soft tissues including both psoas muscles I have discussed this with patient at length and tried to explain that the surgery will likely not be curative but will only temporize the infection and completely clearing it is almost impossible I also explained to the patient that this approach and surgery of course carries significant risk of morbidity and mortality in the further details of the surgery have to be discussed with neurosurgery I discussed this today with Dr. Felipe and patient would like to proceed with surgery so I will provide preperitoneal/retroperitoneal approach for further neurosurgical intervention 08/15/2017 Patient underwent yesterday left retroperitoneal exposure of the psoas muscles with drainage of large abscesses with about 250 cc of purulent material drained This morning patient is awake alert oriented Abdomen soft active bowel sounds and incision is clean and dry with dressing intact ALY drainage serosanguineous Patient has had several spikes of fever to 101.4 and considering that we mobilized all the purulent material from the back this is not uncommon and patient will have periods of bacteremia Currently on appropriate antibiotics and cultures from the surgery pending Plan Advance to diet Out of bed Transfer to floor 08/16/17 Incision dry ALY drainage down Abdomen soft Doing well 08/20/2017 Patient doing very well Incision is clean and dry ALY drains draining only serosanguineous small amounts of material and can be removed Will leave incision open to air From my point patient can be discharged anytime Jennifer to come out in about 10 days 08/21/2017 Incision clean and dry DC ALY May shower and leave incision open to air From my point patient can be discharged any time 08/30/[address] of abdomen reveals a 5 cm collection over the left psoas muscle. Discussed with ID specialist. I believe it is reasonable to aspirate this in IR. The bigger issue is the unlikely possibility of cure to this osteomyelitis. I have explained this to the patient and his family (POA). To completely eradicate osteomyelitis and infection in this area is almost impossible and we have to do our best to temporize the problem. Objective: Vital Signs Date Time Temp Pulse Resp B/P (MAP) Pulse Ox O2 Delivery O2 Flow Rate FiO2 08/30/17 07:56 98.6 87 16 111/77 (88) 97 08/30/17 00:00 98.3 85 18 118/73 (88) 100 08/29/17 20:00 97.8 95 18 120/82 (95) 97 08/29/17 16:00 98.1 102 17 112/75 (87) 98 08/29/17 14:50 18 08/29/17 12:00 98.3 102 18 138/89 (105) 97 Labs: Laboratory Tests Test 08/30/17 05:32 White Blood Count 6.9 TH/MM3 (4.0-11.0) Red Blood Count 2.99 MIL/MM3 (4.50-5.90) Hemoglobin 8.6 GM/DL (13.0-17.0) Hematocrit 26.6 % (39.0-51.0) Mean Corpuscular Volume 89.0 FL (80.0-100.0) Mean Corpuscular Hemoglobin 28.7 PG (27.0-34.0) Mean Corpuscular Hemoglobin Concent 32.2 % (32.0-36.0) Red Cell Distribution Width 16.1 % (11.6-17.2) Platelet Count 178 TH/MM3 (150-450) Mean Platelet Volume 7.1 FL (7.0-11.0) Neutrophils (%) (Auto) 72.2 % (16.0-70.0) Lymphocytes (%) (Auto) 12.8 % (9.0-44.0) Monocytes (%) (Auto) 10.7 % (0.0-8.0) Eosinophils (%) (Auto) 3.4 % (0.0-4.0) Basophils (%) (Auto) 0.9 % (0.0-2.0) Neutrophils # (Auto) 5.0 TH/MM3 (1.8-7.7) Lymphocytes # (Auto) 0.9 TH/MM3 (1.0-4.8) Monocytes # (Auto) 0.7 TH/MM3 (0-0.9) Eosinophils # (Auto) 0.2 TH/MM3 (0-0.4) Basophils # (Auto) 0.1 TH/MM3 (0-0.2) CBC Comment DIFF FINAL Differential Comment Blood Urea Nitrogen 26 MG/DL (7-18) Creatinine 1.43 MG/DL (0.60-1.30) Random Glucose 64 MG/DL (74-106) Total Protein 8.3 GM/DL (6.4-8.2) Albumin 2.0 GM/DL (3.4-5.0) Calcium Level 7.6 MG/DL (8.5-10.1) Phosphorus Level 4.2 MG/DL (2.5-4.9) Magnesium Level 1.8 MG/DL (1.5-2.5) Alkaline Phosphatase 287 U/L (45-117) Aspartate Amino Transf (AST/SGOT) 47 U/L (15-37) Alanine Aminotransferase (ALT/SGPT) 28 U/L (12-78) Total Bilirubin 0.3 MG/DL (0.2-1.0) Sodium Level 139 MEQ/L (136-145) Potassium Level 4.8 MEQ/L (3.5-5.1) Chloride Level 103 MEQ/L (98-107) Carbon Dioxide Level 29.4 MEQ/L (21.0-32.0) Anion Gap 7 MEQ/L (5-15) Estimat Glomerular Filtration Rate 62 ML/MIN (>89) Result Diagram: 08/30/17 0532 08/30/17 0532 Felicia Sanchez MD August 30, 2017 10:28
[2017-08-30] MEDS: cefTRIAXone INJ 2,000 MG in SODIUM CHLORIDE 0.9% INJ 100 ML IV SCH ×2 (10:55→21:33)
[2017-08-30 12:00] VITALS: BP 132/92; PULSE 98; RESP 16; TEMP 98.1; O2SAT 96
[2017-08-30] MEDS: CYCLOBENZAPRINE HCL 10 MG TAB PO PRN (13:31)
--- NOTE | 2017-08-30 13:49 | HHI.IDPN ---
Subjective Subjective Remarks Patient seen and examined on behalf of Dr. Goldstein Mr. Gee is a 57-year-old -Luxembourger male with past medical history significant for rheumatoid arthritis on prednisone. From infectious disease standpoint his past medical history significant for prior history of strep epidural abscess as well as bacteremia treated with IV antibiotics and also needing L4 partial laminectomy in 2013 as well as an abscess on the skin of his back.. His past medical history is also significant for chronic kidney disease stage III, chronic back pain, cocaine abuse and tobacco abuse who presented to the emergency department with complaints of severe back pain. Patient is an extremely poor historian and reports that he has had a prior visit to the emergency room on July 23, 2017 with similar symptoms. An MRI of the L-spine did not show any evidence of infection patient was asked to follow-up with Dr. Pineda whom he has seen in the past. On arrival, BP 125/71, HR 86, O2 sat 100% RA, Afebrile. WBC 20.8. Na 128. K+ 5.5. Creatinine 2.84, previously 2.97 on 07/23/2017. INR 1.1. UA negative for UTI. 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 S/p Vanc/ Rocephin in ER. At the time of my evaluation patient is on a regular floor. Appears to be comfortable not in significant pain involving his extremities. Patient reports tingling numbness and extreme pain in his bilateral lower extremities right more than left. Patient denies any bowel bladder incontinence. Denies any decrease in perineal sensation. Infectious diseases consulted for evaluation and management of discitis and epidural abscess. Notes reviewed patient is NPO for IR procedure later today [facility] nursing staff patient reports some improvement in back and bilateral leg pain on Gabapentin no fever or chills no rash no N/V no diarrhea afebrile hemoglobin remaining stable s/p transfusion 08/14 s/p drainage lumbar retroperitoneal and bilateral psoas muscle abscess, with neg cultures 07/29 BCX + strep anginosus/milleri. Repeat BCX negative Repeat MRI shows persistent inflammation on the left and inflammation at L45 Lumbar CT shows 5cm fluid collection over left psoas muscle Antibiotics IV Ceftriaxone q 12 Current Medications Medications (Trade) Dose Ordered Sig/Manjit Route Start Time Stop Time Status Last Admin (NS Flush) 2 ml UNSCH PRN IV FLUSH 07/29/17 23:15 08/10/17 06:06 (NS Flush) 2 ml BID IV FLUSH 07/30/17 09:00 08/30/17 08:22 (Zofran Inj) 4 mg Q6H PRN IVP 07/29/17 23:15 (Tylenol) 650 mg Q6H PRN PO 07/29/17 23:15 08/15/17 07:38 (Emilie-Colace) 1 tab BID PO 07/30/17 09:00 08/28/17 08:56 (Milk Of Magnesia Liq) 30 ml Q12H PRN PO 07/29/17 23:15 (Senokot) 17.2 mg Q12H PRN PO 07/29/17 23:15 (Dulcolax Supp) 10 mg DAILY PRN RECTAL 07/29/17 23:15 (Lactulose Liq) 30 ml DAILY PRN PO 07/29/17 23:15 08/19/17 13:55 (Tums Chew) 500 mg Q2H PRN CHEW 08/02/17 19:30 08/05/17 13:49 Ceftriaxone Sodium 2000 mg/ Sodium Chloride 100 ml @ 200 mls/hr Q12H IV 08/03/17 17:00 08/30/17 10:55 (Catapres) 0.1 mg Q6H PRN PO 08/04/17 15:30 08/06/17 23:44 (Lac-Hydrin 12% Lotion) 1 applic BID TOPICAL 08/04/17 21:00 08/30/17 08:23 (Pepcid) 20 mg BID PO 08/05/17 21:00 08/30/17 08:22 (Norvasc) 10 mg DAILY PO 08/06/17 11:00 08/30/17 08:22 (Vasotec Inj) 2.5 mg Q6H PRN IV PUSH 08/06/17 11:00 08/07/17 22:20 (Percocet 5-325 Mg) 1 tab Q4HR PRN PO 08/09/17 10:00 08/29/17 22:48 (Narcan Inj) 0.4 mg UNSCH PRN IV PUSH 08/14/17 19:30 (Proair Hfa Inh) 2 puff Q4H PRN INH 08/14/17 20:30 (Flexeril) 5 mg TID PRN PO 08/14/17 20:30 08/30/17 13:31 (Lac-Hydrin 12% Lotion) 1 applic BID TOPICAL 08/17/17 11:00 08/29/17 21:00 (Miralax) 17 gm DAILY PO 08/18/17 09:00 08/21/17 08:51 (Deltasone) 10 mg DAILY PO 08/21/17 09:00 08/30/17 08:22 (Neurontin) 300 mg TID PO 08/29/17 13:00 08/30/17 13:31 Lines Line sites with no e.o infection. Past Medical History reviewed. (Jeni Reed) Allergies: Coded Allergies: *MDRO Multi-Drug Resistant Organism (Verified Adverse Reaction, Unknown, ) MRSA (leg wound) - 10/2006 MRSA PCR screen positive - 10/2014 Objective . Vital Signs Date Time Temp Pulse Resp B/P (MAP) Pulse Ox O2 Delivery O2 Flow Rate FiO2 08/30/17 12:00 98.1 98 16 132/92 (105) 96 08/30/17 07:56 98.6 87 16 111/77 (88) 97 08/30/17 00:00 98.3 85 18 118/73 (88) 100 08/29/17 20:00 97.8 95 18 120/82 (95) 97 08/29/17 16:00 98.1 102 17 112/75 (87) 98 08/29/17 14:50 18 . Laboratory Tests Test 08/28/17 20:07 08/29/17 16:30 08/30/17 05:32 Hemoglobin 8.5 GM/DL 9.0 GM/DL 8.6 GM/DL Hematocrit 26.1 % 27.3 % 26.6 % White Blood Count 7.7 TH/MM3 6.9 TH/MM3 Red Blood Count 3.06 MIL/MM3 2.99 MIL/MM3 Mean Corpuscular Volume 89.1 FL 89.0 FL Mean Corpuscular Hemoglobin 29.5 PG 28.7 PG Mean Corpuscular Hemoglobin Concent 33.1 % 32.2 % Red Cell Distribution Width 16.2 % 16.1 % Platelet Count 185 TH/MM3 178 TH/MM3 Mean Platelet Volume 7.7 FL 7.1 FL Neutrophils (%) (Auto) 79.1 % 72.2 % Lymphocytes (%) (Auto) 11.2 % 12.8 % Monocytes (%) (Auto) 6.8 % 10.7 % Eosinophils (%) (Auto) 2.4 % 3.4 % Basophils (%) (Auto) 0.5 % 0.9 % Neutrophils # (Auto) 6.1 TH/MM3 5.0 TH/MM3 Lymphocytes # (Auto) 0.9 TH/MM3 0.9 TH/MM3 Monocytes # (Auto) 0.5 TH/MM3 0.7 TH/MM3 Eosinophils # (Auto) 0.2 TH/MM3 0.2 TH/MM3 Basophils # (Auto) 0.0 TH/MM3 0.1 TH/MM3 CBC Comment DIFF FINAL DIFF FINAL Differential Comment Laboratory Tests Test 08/29/17 05:34 08/29/17 13:59 08/30/17 05:32 C-Reactive Protein 4.88 MG/DL Blood Urea Nitrogen 25 MG/DL 26 MG/DL Creatinine 1.53 MG/DL 1.43 MG/DL Random Glucose 102 MG/DL 64 MG/DL Total Protein 8.6 GM/DL 8.3 GM/DL Albumin 2.0 GM/DL 2.0 GM/DL Calcium Level 7.9 MG/DL 7.6 MG/DL Alkaline Phosphatase 307 U/L 287 U/L Aspartate Amino Transf (AST/SGOT) 56 U/L 47 U/L Alanine Aminotransferase (ALT/SGPT) 33 U/L 28 U/L Total Bilirubin 0.3 MG/DL 0.3 MG/DL Sodium Level 138 MEQ/L 139 MEQ/L Potassium Level 4.5 MEQ/L 4.8 MEQ/L Chloride Level 102 MEQ/L 103 MEQ/L Carbon Dioxide Level 27.5 MEQ/L 29.4 MEQ/L Anion Gap 9 MEQ/L 7 MEQ/L Estimat Glomerular Filtration Rate 58 ML/MIN 62 ML/MIN Phosphorus Level 4.2 MG/DL Magnesium Level 1.8 MG/DL Imaging Last Impressions Lumbar Spine CT 08/29/17 0000 Signed Impressions: CONCLUSION: 1. There is destructive changes involving the disc space at L4-5 characteristi c for discitis. 2. There are destructive changes predominantly in the body of L5 consistent wi th osteomyelitis. There is prominent paraspinal soft tissue swelling at the L4- L5 level. 3. Mild grade 1 anterior spondylolisthesis of L4 over L5. 4. Limited visualization of the spinal canal at L4-5 due to the inflammatory c hanges. 5. Bilateral facet arthritis at multiple levels. 6. Broad-based bulging at L2-3 and L3-4. Lumbar Spine MRI 08/28/17 0000 Signed Impressions: CONCLUSION: 1. Improvement as above. Persistent fluid remains on the left. Persistent evid ence for inflammatory process remains at the L4-5 disc. 2. Less inflammatory changes in the retroperitoneum. Chest X-Ray 08/15/17 0000 Signed Impressions: Service Date/Time: Tuesday, August 15, 2017 11:34 - CONCLUSION: Mild compensated cardiomegaly Roly Reina MD FACR Lumbar Puncture Fluoroscopy 08/08/17 0000 Signed Impressions: Service Date/Time: Tuesday, August 08, 2017 15:42 - CONCLUSION: Uncomplicated fluoroscopically guided lumbar puncture. Fady Chan MD Needle Biopsy/Aspiration X-Ray 07/31/17 0000 Signed Impressions: Service Date/Time: Monday, July 31, 2017 13:29 - CONCLUSION: Uncomplicated needle biopsy of the L4/L5 disc space as above. Candelario Reina MD Abdomen/Pelvis CT 07/29/17 0000 Signed Impressions: Service Date/Time: Saturday, July 29, 2017 22:14 - CONCLUSION: 1. Significant new prevertebral soft tissue fullness and stranding centered at the L5 level. There is associated sclerosis and erosive changes in the anterior L5 vertebral body which appear unchanged from recent exams. Overall, findings are concerning for discitis and osteomyelitis. Consider repeat MRI examination for further evaluation. 2. 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 However, evaluation is significantly limited due to lack of IV contrast on this exam. This was not present on remote prior CT exam. A mycotic aneurysm cannot be entirely excluded. Contrast enhanced examination would be greatly beneficial in further evaluation. 3. Nodular appearing liver contour consistent with cirrhosis. 4. IVC filter in place. 5. Cholelithiasis. Tanner Jones MD Physical Exam GENERAL: Well developed well nourished male patient, INAD. Awake and alert. Lying in hospital bed. SKIN: Warm and dry. No obvious rash. HEAD: Atraumatic. Normocephalic. EYES: EOMI. No scleral icterus. No injection or drainage. ENT: No gross bleeding. MMM. NECK: Trachea midline. Moves neck in all directions. No rigidity noted. CARDIOVASCULAR: Regular rate and rhythm. RESPIRATORY: Nonlabored. Diminished. Clear to auscultation anteriorly. GASTROINTESTINAL: Soft, postop with surgical incision over left side of abdomen with dry and intact dressing, incision appears to be healing well, lamin and steristrips in place. ALY drains removed with sites appearing to be healing well. MUSCULOSKELETAL: No pedal edema NEUROLOGICAL: Awake and alert. Moves all extremities spontaneously. Normal speech. PSYCHIATRIC: Calm and cooperative. IV line sites with no e.o infection (Jeni Reed) Assessment & Plan Remarks Strep bacteremia, probable endocarditis Probable meningitis based on glucose and total protein (partially treated by the time LP done) Epidural abscess Discitis. - Repeat MRI shows persistent fluid remains on the left. Persistent evidence for inflammatory process remains at the L4-5 disc and Less inflammatory changes in the retroperitoneum. Bilateral psoas fluid collection s/p I&D 08/14 with 250ml yellowish purulent material removed. Fever postop, resolved. -repeat MRI shows persistent fluid remains on the left. Persistent evidence for inflammatory process remains at the L4-5 disc and less inflammatory changes in the retroperitoneum.improvement in the retroperitoneum with less inflammatory changes. Per Dr. Reina, appears multiloculated. For IR drainage later today. 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 Immune compromised host on steroids Acute on chronic kidney disease, resolved Hyperkalemia, resolved Hep B reactive Anemia, hgb 6.9 s/p transfusion hgb 8.5 Recs Continue on IV Ceftriaxone q 12h Patient NPO for IR guided drainage later today Will follow up on fluid cx sent by IR today Continue to monitor clinically (Jeni Reed) Remarks The exam, history, and the medical decision-making described in the above note were completed with the assistance of the mid-level provider. I reviewed and agree with the findings presented. I attest that I had a [id number] encounter with the patient on the same day, and personally performed and documented my assessment and findings in the medical record. justo RN Complains of back and leg pain. justo Pena: IR guided drainage today. Cultures to be sent in IR. Consider reconsult palliative care due to multiloculated fluid collection not a surgical candidate per Dr.J Christopher Leal and after studies of IR guided drainage available. (Latricia Goldstein MD) Jeni Reed August 30, 2017 13:49 Ltaricia Goldstein MD August 30, 2017 18:51
[2017-08-30] MEDS ORDERED: fentaNYL CITRATE 250 MCG/5 ML AMP ONE (15:16)
[2017-08-30] MEDS ORDERED: MIDAZOLAM HCL 5 MG/5 ML VIAL ONE (15:16)
--- NOTE | 2017-08-30 16:09 | HHI.PR ---
Subjective Remarks Back pain is slightly improved. The patient denies chest pain or shortness of breath. Patient is afebrile. Objective Vitals Vital Signs Date Time Temp Pulse Resp B/P (MAP) Pulse Ox O2 Delivery O2 Flow Rate FiO2 08/30/17 12:00 98.1 98 16 132/92 (105) 96 08/30/17 07:56 98.6 87 16 111/77 (88) 97 08/30/17 00:00 98.3 85 18 118/73 (88) 100 08/29/17 20:00 97.8 95 18 120/82 (95) 97 I/O 08/29/17 08/29/17 08/29/17 08/30/17 08/30/17 08/30/17 06:59 14:59 22:59 06:59 14:59 22:59 Intake Total 100 ml 100 ml 440 ml 100 ml Output Total 3100 ml 1200 ml 600 ml Balance -3000 ml 100 ml -760 ml -500 ml Intake Oral 440 ml IV Total 100 ml 100 ml 100 ml Output Urine Total 3100 ml 1200 ml 600 ml # Bowel Movements 1 1 Result Diagram: 08/30/17 0532 08/30/17 0532 Objective Remarks General: No acute distress. Heart: Regular rate and rhythm. No murmur. Lungs: Clear to auscultation bilaterally. No wheezes, rales, or rhonchi. Breathing is nonlabored. Abdomen: Soft, nontender, nondistended. Positive bowel sounds. Extremities: No lower extremity edema. Psych: Alert, oriented, answers questions appropriately. Neuro: No focal deficits noted. Back: Tender to palpation around the sacrum. Psych: Slightly flattened affect. 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 Osteomyelitis of the L5 vertebra/bilateral psoas muscle abscess/ bacteremia Status post CT-guided removal of fluid for culture as well as disc biopsy on 07/31. Appreciate neurosurgery, vascular surgery, infectious disease recommendations. Status post drainage of abscess on 08/14/17. Wound culture is negative. Mycobacterial and fungal cultures are pending. Bacteremia with Strep Anginosis. - Continue antibiotics per ID. - follow up with neurosurgery. Montgomery removed 08/26. - 08/28 as per neurosurgery recommendations the patient will need at least 6 weeks of IV antibiotics before procedure. Continue IV Rocephin. Follow-up repeat MRI. - 08/29 repeat MRI shows a persistence of fluid on the left. Persistent evidence of inflammatory process remains at the L4-5 disc. Discussed the case with Dr. Goldstein from ID who relayed to Dr. Sanchez will let her know if I recommend aspiration or any other procedures needed. We will start the patient on gabapentin for neuropathic pain at the lower back. 08/30 the patient is going for IR drainage of fluid collection in the lower back. Continue gabapentin for neuropathic pain. 2. Encephalopathy Likely toxic secondary to drug abuse. S/P lumbar puncture. Evaluated by psychiatry, patient is capable of making decisions. - resolved. - Avoid overly sedating medications. 3. Cocaine abuse Urine toxicology positive for cocaine. There was concern that the patient may have used cocaine while in the hospital as his urine drug screen was positive 8 days after admission. - cessation instruction. - will allow visitors again. 4. Right iliac artery aneurysm Patient noted to have a 2.9 cm aneurysm of the right internal iliac artery, possibly mycotic aneurysm. This was an incidental finding. He denies IV drug abuse. Appreciate vascular surgery recommendations. - No surgery planned at this time. 5. Chronic kidney disease stage II with acute kidney injury. Creatinine seems stable. - monitor and avoid nephrotoxins. 6. Hypoglycemia Episodes of low blood sugar into the 60s. Blood sugars more stable. - ADAT. Continue Ensure. - check an insulin level. Obtain abdominal US if elevated. 08/28 insulin level pending. Follow-up. 7. Anemia Seems chronic. - check Hemoccult. - follow CBC. 08/28 anemia likely multifactorial. Follow-up stool blood Hemoccult. 8. Hypertension Blood pressure well controlled. -Clonidine discontinued - continue amlodipine. DVT prophylaxis: SCDs. Discharge Planning Continue to monitor on the medical floor. Patient will need ID clearance prior to discharge. Omari Van MD August 30, 2017 16:09
[2017-08-30 16:30] VITALS: BP 110/81; PULSE 86; RESP 20; TEMP 97.6; O2SAT 98
[2017-08-30 16:45] VITALS: BP 137/92; PULSE 84; RESP 20; O2SAT 97
--- NOTE | 2017-08-30 16:51 | PD.RAD ---
Post CT Procedure Prog Note Pre Procedure Diagnosis: (1) Retroperitoneal abscess Post Procedure Diagnosis: (1) Retroperitoneal abscess Procedure Date: August 30, 2017 Supervising Radiologist: Constantine Jameson Proceduralist/Assist: farhana delcid Estimated blood loss: none Anesthesia: Conscious Sedation Plan of Activity Patient to Unit: ROPU Patient Condition: Good See PACS Report for procedural detail/treatment Constantine Jameson MD August 30, 2017 16:51
--- NOTE | 2017-08-30 17:08 | RADRPT ---
EXAM DATE: 08/30/2017 4:41 PM EDT AGE/SEX: 57 years / Male INDICATIONS: Psoas muscle abscess. CLINICAL DATA: This is the patient's initial encounter. Patient reports that signs and symptoms have been present for 1 day and indicates a pain score of 4/10. MEDICAL/SURGICAL HISTORY: Rheumatoid arthritis. Hypertension. Stage 1 kidney disease, MRSA. None. Devices: 17-gauge 17.8 cm bard introducer needle COMPARISON: No prior [facility] exams available for comparison. PROCEDURE : The risks, benefits and alternatives to the procedure were explained and verbal and written consent w as obtained. Using automated exposure control and adjustment of the mA and/or kV according to patien t size, radiation dose was kept as low as reasonably achievable to obtain optimal diagnostic quality images. The site was prepped in sterile fashion. Full sterile technique was used, including cap, ma sk, sterile gloves and gown and a large sterile sheet. Hand hygiene and 2% chlorhexidine and/or beta dine/alcohol prep was utilized per protocol for cutaneous antisepsis. The skin and subcutaneous tiss ues were infiltrated with local anesthetic solution. DICOM format image data is available electronic ally for review and comparison. FINDINGS: Approximately 6 cc of serosanguineous/pus fluid aspirated. CONCLUSION: 1. Uncomplicated procedure as above. Electronically signed by: Constantine Jameson MD 08/30/2017 5:06 PM EDT
[2017-08-30 20:00] VITALS: BP 128/81; PULSE 109; RESP 17; TEMP 97.9; O2SAT 95
--- NOTE | 2017-08-30 20:31 | HHI.NSPN ---
History Interval History 07/30: 57-year-old gentleman with a history of lumbar osteomyelitis and discitis with abscess who underwent L4-[address] Felipe from neurosurgery. He has a chronic history of low back pain and more recent MRI scan shows degenerative L4-5 stenosis with facet hypertrophy and grade 1 spondylolisthesis along with some possible L5 anterior vertebral body osteomyelitis with the prevertebral retroperitoneal abscess. Patient was scheduled to follow-up with Dr. Felipe but returned to the emergency room for persistent back pain. Currently he is very sedated but does awaken and relates that his pain is controlled. He has been ambulating with a cane on a chronic basis. No bowel bladder incontinence or any lower extremity weakness noted. Dr. Gamez from neurosurgery coverage over the weekend was consulted and deferred further management to Dr. Felipe who is currently out of town. 08/06: When seen this morning the patient is asleep in bed. He does awaken to voice but is drowsy after that. He complains of pain to the lower back that does radiate down both lower extremities to the knees. He denies any numbness or tingling to the lower extremities. He does have low lumbar tenderness to palpation. He did not have any apparent lower extremity sensory deficits. His motor strength exam was incomplete due to patient not fully participating due to pain and drowsiness. 08/08/2017: Relatively awake and alert. Status post lumbar puncture 08/14/2017: Retroperitoneal approach evacuation of retroperitoneal-bilateral psoas muscle abscess 08/30/2017: Complains of persistent low back pain with some radiation to the proximal right thigh. CT guided aspiration of recurrent psoas muscle abscess per interventional radiology. Exam Results Vital Signs Date Time Temp Pulse Resp B/P (MAP) Pulse Ox O2 Delivery O2 Flow Rate FiO2 08/30/17 16:45 84 20 137/92 (107) 97 08/30/17 16:30 97.6 Intake and Output 08/30/17 08/30/17 08/30/17 07:59 15:59 23:59 Output Total 600 ml 1850 ml Balance -600 ml -1850 ml Physical Examination Awake and alert Conversant appropriate Sensation intact light touch lower extremities except mild decrease bottom left greater than right foot-chronic Strength normal lower extremity major flexion and extension groups Left flank incision dry and intact. Appears to be healing adequately. No areas of wound dehiscence. Lab, Micro, Other Results Last 72 hours Impressions Needle Aspiration CT 08/30/17 1356 Signed Impressions: CONCLUSION: 1. Uncomplicated procedure as above. Lumbar Spine CT 08/29/17 0000 Signed Impressions: CONCLUSION: 1. There is destructive changes involving the disc space at L4-5 characteristi c for discitis. 2. There are destructive changes predominantly in the body of L5 consistent wi th osteomyelitis. There is prominent paraspinal soft tissue swelling at the L4- L5 level. 3. Mild grade 1 anterior spondylolisthesis of L4 over L5. 4. Limited visualization of the spinal canal at L4-5 due to the inflammatory c hanges. 5. Bilateral facet arthritis at multiple levels. 6. Broad-based bulging at L2-3 and L3-4. Lumbar Spine MRI 08/28/17 0000 Signed Impressions: CONCLUSION: 1. Improvement as above. Persistent fluid remains on the left. Persistent evid ence for inflammatory process remains at the L4-5 disc. 2. Less inflammatory changes in the retroperitoneum. Medical Decision Making Impression and Plan Impression: 1. L4-5 discitis with bilateral psoas abscess. Stable neurologic exam following retroperitoneal approach for drainage of abscess Repeat MRI lumbar spine 08/28/2017 has revealed recurrent approximately 5 cm psoas abscess. Aspirated and cultured per interventional radiology on 2017. Plan: Await repeat cultures from 08/30/2017 recurrent psoas abscess aspiration. Continuing antibiotics per infectious disease Discontinue remaining lamin Discussed with patient Given early recurrence of the abscess, prognosis for intermediate to long-term control of the infection appears somewhat poor. Guero Felipe MD August 30, 2017 20:31
[2017-08-31] VITALS: BP 130/82; PULSE 105; RESP 17; TEMP 98.1; O2SAT 96
[2017-08-31] MEDS: oxyCODONE/ACETAMINOPHEN 5 MG/325 MG TAB PO PRN ×4 (01:34→17:39)
[2017-08-31] MEDS: CYCLOBENZAPRINE HCL 10 MG TAB PO PRN ×3 (01:39→15:30)
--- NOTE | 2017-08-31 07:22 | HHI.IDPN ---
Subjective Subjective Remarks Patient seen and examined on behalf of Dr. Goldstein Mr. Gee is a 57-year-old -[place]ian male with past medical history significant for rheumatoid arthritis on prednisone. From infectious disease standpoint his past medical history significant for prior history of strep epidural abscess as well as bacteremia treated with IV antibiotics and also needing L4 partial laminectomy in 2013 as well as an abscess on the skin of his back.. His past medical history is also significant for chronic kidney disease stage III, chronic back pain, cocaine abuse and tobacco abuse who presented to the emergency department with complaints of severe back pain. Patient is an extremely poor historian and reports that he has had a prior visit to the emergency room on July 23, 2017 with similar symptoms. An MRI of the L-spine did not show any evidence of infection patient was asked to follow-up with Dr. Pineda whom he has seen in the past. On arrival, BP 125/71, HR 86, O2 sat 100% RA, Afebrile. WBC 20.8. Na 128. K+ 5.5. Creatinine 2.84, previously 2.97 on 07/23/2017. INR 1.1. UA negative for UTI. 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 S/p Vanc/ Rocephin in ER. At the time of my evaluation patient is on a regular floor. Appears to be comfortable not in significant pain involving his extremities. Patient reports tingling numbness and extreme pain in his bilateral lower extremities right more than left. Patient denies any bowel bladder incontinence. Denies any decrease in perineal sensation. Infectious diseases consulted for evaluation and management of discitis and epidural abscess. Notes reviewed patient is disappointed more fluid wasn't taken off yesterday during IR procedure he is requesting if he can be released for 8-10 hours tomorrow to attend his brothers he complains of right sided low back and buttock pain and weakness in the right leg no fever or chills no rash no N/V no diarrhea afebrile hemoglobin remaining stable s/p transfusion WBC WNL 08/14 s/p drainage lumbar retroperitoneal and bilateral psoas muscle abscess, with neg cultures 07/29 BCX + strep anginosus/milleri. Repeat BCX negative Repeat MRI shows persistent inflammation on the left and inflammation at L45 Lumbar CT shows 5cm fluid collection over left psoas muscle s/p IR aspiration yesterday - wound cx/gram stain pending Antibiotics IV Ceftriaxone q 12 Current Medications Medications (Trade) Dose Ordered Sig/Manjit Route Start Time Stop Time Status Last Admin (NS Flush) 2 ml UNSCH PRN IV FLUSH 07/29/17 23:15 08/10/17 06:06 (NS Flush) 2 ml BID IV FLUSH 07/30/17 09:00 08/30/17 21:34 (Zofran Inj) 4 mg Q6H PRN IVP 07/29/17 23:15 (Tylenol) 650 mg Q6H PRN PO 07/29/17 23:15 08/15/17 07:38 (Emilie-Colace) 1 tab BID PO 07/30/17 09:00 08/28/17 08:56 (Milk Of Magnesia Liq) 30 ml Q12H PRN PO 07/29/17 23:15 (Senokot) 17.2 mg Q12H PRN PO 07/29/17 23:15 (Dulcolax Supp) 10 mg DAILY PRN RECTAL 07/29/17 23:15 (Lactulose Liq) 30 ml DAILY PRN PO 07/29/17 23:15 08/19/17 13:55 (Tums Chew) 500 mg Q2H PRN CHEW 08/02/17 19:30 08/05/17 13:49 Ceftriaxone Sodium 2000 mg/ Sodium Chloride 100 ml @ 200 mls/hr Q12H IV 08/03/17 17:00 08/30/17 21:33 (Catapres) 0.1 mg Q6H PRN PO 08/04/17 15:30 08/06/17 23:44 (Lac-Hydrin 12% Lotion) 1 applic BID TOPICAL 08/04/17 21:00 08/30/17 21:00 (Pepcid) 20 mg BID PO 08/05/17 21:00 08/30/17 21:32 (Norvasc) 10 mg DAILY PO 08/06/17 11:00 08/30/17 08:22 (Vasotec Inj) 2.5 mg Q6H PRN IV PUSH 08/06/17 11:00 08/07/17 22:20 (Percocet 5-325 Mg) 1 tab Q4HR PRN PO 08/09/17 10:00 08/31/17 06:34 (Narcan Inj) 0.4 mg UNSCH PRN IV PUSH 08/14/17 19:30 (Proair Hfa Inh) 2 puff Q4H PRN INH 08/14/17 20:30 (Flexeril) 5 mg TID PRN PO 08/14/17 20:30 08/31/17 01:39 (Lac-Hydrin 12% Lotion) 1 applic BID TOPICAL 08/17/17 11:00 08/29/17 21:00 (Miralax) 17 gm DAILY PO 08/18/17 09:00 08/21/17 08:51 (Deltasone) 10 mg DAILY PO 08/21/17 09:00 08/30/17 08:22 (Neurontin) 300 mg TID PO 08/29/17 13:00 08/30/17 17:51 Lines Line sites with no e.o infection. Past Medical History reviewed. (Jeni Reed) Allergies: Coded Allergies: *MDRO Multi-Drug Resistant Organism (Verified Adverse Reaction, Unknown, ) MRSA (leg wound) - 10/2006 MRSA PCR screen positive - 10/2014 Objective . Vital Signs Date Time Temp Pulse Resp B/P (MAP) Pulse Ox O2 Delivery O2 Flow Rate FiO2 08/31/17 00:00 98.1 105 17 130/82 (98) 96 08/30/17 20:00 97.9 109 17 128/81 (97) 95 08/30/17 16:45 84 20 137/92 (107) 97 08/30/17 16:30 97.6 86 20 110/81 (91) 98 08/30/17 12:00 98.1 98 16 132/92 (105) 96 08/30/17 07:56 98.6 87 16 111/77 (88) 97 . Laboratory Tests Test 08/29/17 16:30 08/30/17 05:32 White Blood Count 7.7 TH/MM3 6.9 TH/MM3 Red Blood Count 3.06 MIL/MM3 2.99 MIL/MM3 Hemoglobin 9.0 GM/DL 8.6 GM/DL Hematocrit 27.3 % 26.6 % Mean Corpuscular Volume 89.1 FL 89.0 FL Mean Corpuscular Hemoglobin 29.5 PG 28.7 PG Mean Corpuscular Hemoglobin Concent 33.1 % 32.2 % Red Cell Distribution Width 16.2 % 16.1 % Platelet Count 185 TH/MM3 178 TH/MM3 Mean Platelet Volume 7.7 FL 7.1 FL Neutrophils (%) (Auto) 79.1 % 72.2 % Lymphocytes (%) (Auto) 11.2 % 12.8 % Monocytes (%) (Auto) 6.8 % 10.7 % Eosinophils (%) (Auto) 2.4 % 3.4 % Basophils (%) (Auto) 0.5 % 0.9 % Neutrophils # (Auto) 6.1 TH/MM3 5.0 TH/MM3 Lymphocytes # (Auto) 0.9 TH/MM3 0.9 TH/MM3 Monocytes # (Auto) 0.5 TH/MM3 0.7 TH/MM3 Eosinophils # (Auto) 0.2 TH/MM3 0.2 TH/MM3 Basophils # (Auto) 0.0 TH/MM3 0.1 TH/MM3 CBC Comment DIFF FINAL DIFF FINAL Differential Comment Laboratory Tests Test 08/29/17 13:59 08/30/17 05:32 Blood Urea Nitrogen 25 MG/DL 26 MG/DL Creatinine 1.53 MG/DL 1.43 MG/DL Random Glucose 102 MG/DL 64 MG/DL Total Protein 8.6 GM/DL 8.3 GM/DL Albumin 2.0 GM/DL 2.0 GM/DL Calcium Level 7.9 MG/DL 7.6 MG/DL Alkaline Phosphatase 307 U/L 287 U/L Aspartate Amino Transf (AST/SGOT) 56 U/L 47 U/L Alanine Aminotransferase (ALT/SGPT) 33 U/L 28 U/L Total Bilirubin 0.3 MG/DL 0.3 MG/DL Sodium Level 138 MEQ/L 139 MEQ/L Potassium Level 4.5 MEQ/L 4.8 MEQ/L Chloride Level 102 MEQ/L 103 MEQ/L Carbon Dioxide Level 27.5 MEQ/L 29.4 MEQ/L Anion Gap 9 MEQ/L 7 MEQ/L Estimat Glomerular Filtration Rate 58 ML/MIN 62 ML/MIN Phosphorus Level 4.2 MG/DL Magnesium Level 1.8 MG/DL Microbiology Date/Time Source Procedure Growth Status 08/30/17 16:00 Abscess Abdomen Gram Stain Pending Received 08/30/17 16:00 Abscess Abdomen Wound Culture Pending Received Imaging Last Impressions Needle Aspiration CT 08/30/17 1356 Signed Impressions: CONCLUSION: 1. Uncomplicated procedure as above. Lumbar Spine CT 08/29/17 0000 Signed Impressions: CONCLUSION: 1. There is destructive changes involving the disc space at L4-5 characteristi c for discitis. 2. There are destructive changes predominantly in the body of L5 consistent wi th osteomyelitis. There is prominent paraspinal soft tissue swelling at the L4- L5 level. 3. Mild grade 1 anterior spondylolisthesis of L4 over L5. 4. Limited visualization of the spinal canal at L4-5 due to the inflammatory c hanges. 5. Bilateral facet arthritis at multiple levels. 6. Broad-based bulging at L2-3 and L3-4. Lumbar Spine MRI 08/28/17 0000 Signed Impressions: CONCLUSION: 1. Improvement as above. Persistent fluid remains on the left. Persistent evid ence for inflammatory process remains at the L4-5 disc. 2. Less inflammatory changes in the retroperitoneum. Chest X-Ray 08/15/17 0000 Signed Impressions: Service Date/Time: Tuesday, August 15, 2017 11:34 - CONCLUSION: Mild compensated cardiomegaly Roly Reina MD FACR Lumbar Puncture Fluoroscopy 08/08/17 0000 Signed Impressions: Service Date/Time: Tuesday, August 08, 2017 15:42 - CONCLUSION: Uncomplicated fluoroscopically guided lumbar puncture. Fady Chan MD Needle Biopsy/Aspiration X-Ray 07/31/17 0000 Signed Impressions: Service Date/Time: Monday, July 31, 2017 13:29 - CONCLUSION: Uncomplicated needle biopsy of the L4/L5 disc space as above. Candelario Reina MD Abdomen/Pelvis CT 07/29/17 0000 Signed Impressions: Service Date/Time: Saturday, July 29, 2017 22:14 - CONCLUSION: 1. Significant new prevertebral soft tissue fullness and stranding centered at the L5 level. There is associated sclerosis and erosive changes in the anterior L5 vertebral body which appear unchanged from recent exams. Overall, findings are concerning for discitis and osteomyelitis. Consider repeat MRI examination for further evaluation. 2. 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 However, evaluation is significantly limited due to lack of IV contrast on this exam. This was not present on remote prior CT exam. A mycotic aneurysm cannot be entirely excluded. Contrast enhanced examination would be greatly beneficial in further evaluation. 3. Nodular appearing liver contour consistent with cirrhosis. 4. IVC filter in place. 5. Cholelithiasis. Tanner Jones MD Physical Exam GENERAL: Well developed well nourished male patient, INAD. Awake and alert. Lying in hospital bed. Becomes tearful talking about his brothers tomorrow. SKIN: Warm and dry. No obvious rash. HEAD: Atraumatic. Normocephalic. EYES: EOMI. No scleral icterus. No injection or drainage. ENT: No gross bleeding. MMM. NECK: Trachea midline. Moves neck in all directions. No rigidity noted. CARDIOVASCULAR: Regular rate and rhythm. RESPIRATORY: Nonlabored. Diminished. Clear to auscultation anteriorly. GASTROINTESTINAL: Soft, postop with surgical incision over left side of abdomen with dry and intact dressing, incision appears to be healing well, lamin removed and steristrips in place. MUSCULOSKELETAL: No pedal edema NEUROLOGICAL: Awake and alert. Moves all extremities spontaneously. Decreased ROM RLE. Normal speech. PSYCHIATRIC: Calm and cooperative. IV line sites with no e.o infection (Jeni Reed) Assessment & Plan Remarks Strep bacteremia, probable endocarditis Probable meningitis based on glucose and total protein (partially treated by the time LP done) Epidural abscess Discitis. - Repeat MRI shows persistent fluid remains on the left. Persistent evidence for inflammatory process remains at the L4-5 disc and Less inflammatory changes in the retroperitoneum. Bilateral psoas fluid collection s/p I&D 08/14 with 250ml yellowish purulent material removed. Fever postop, resolved. -repeat MRI shows persistent fluid remains on the left. Persistent evidence for inflammatory process remains at the L4-5 disc and less inflammatory changes in the retroperitoneum.improvement in the retroperitoneum with less inflammatory changes. Per Dr. Reina, appears multiloculated. 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 Immune compromised host on steroids Acute on chronic kidney disease, resolved Hyperkalemia, resolved Hep B reactive Anemia, hgb 6.9 s/p transfusion hgb 8.5 Recs Continue on IV Ceftriaxone q 12h follow up on fluid cx/gram stain from IR procedure yesterday Continue to monitor clinically (Jeni Reed) Remarks The exam, history, and the medical decision-making described in the above note were completed with the assistance of the mid-level provider. I reviewed and agree with the findings presented. I attest that I had a [id number] encounter with the patient on the same day, and personally performed and documented my assessment and findings in the medical record. Case dw : fluid serous per dw him Cultures negative. Gram stain no organisms. Added Fluid AFB and Fungal stain and Cx unsure if enough specimen. Continue Ceftriaxone q12hrs had meningitis as well as discitis, epidural abscess. Not safe discharge as did drugs in hospital. Hospitalist to order weekly CBC with diff, CMP, CRP and follow. If any abnormal labs or change in clinical condition please call ID sooner. Stop date cannot be provided. ID will periodically follow to determine need for repeat imaging and stop date for antibiotics. plans on surgery after antibiotics completed per my last discussion with him. (Latricia Goldstein MD) Jeni Reed Aug 31, 2017 07:22 Latricia Goldstein MD Aug 31, 2017 17:50
[2017-08-31 08:00] VITALS: BP 114/73; PULSE 105; RESP 18; TEMP 97.8; O2SAT 98
[2017-08-31] MEDS: LACTIC ACID (AMMONIUM LACTATE) 12% LOTION 225 GM BTL TOPICAL SCH ×4 (09:00→21:27)
[2017-08-31] MEDS: POLYETHYLENE GLYCOL 17 GM PKG PO SCH (09:00)
[2017-08-31] MEDS: DOCUSATE SODIUM 50 MG/SENNA 8.6 MG TAB PO SCH ×2 (09:00→21:00)
[2017-08-31] MEDS: predniSONE 10 MG TAB PO SCH (09:46)
[2017-08-31] MEDS: GABAPENTIN 300 MG CAP PO SCH ×3 (09:46→17:39)
[2017-08-31] MEDS: cefTRIAXone INJ 2,000 MG in SODIUM CHLORIDE 0.9% INJ 100 ML IV SCH ×2 (09:46→21:26)
[2017-08-31] MEDS: FAMOTIDINE 20 MG TAB PO SCH ×2 (09:46→21:26)
[2017-08-31] MEDS: SODIUM CHLORIDE 0.9% FLUSH 10 ML FLUSH IV FLUSH SCH ×2 (09:49→21:28)
[2017-08-31 12:00] VITALS: BP 95/77; PULSE 98; RESP 16; TEMP 98.2; O2SAT 96
--- NOTE | 2017-08-31 12:16 | HHI.PR ---
Subjective Remarks still has back pain but improved Denies fevers or chills Objective Vitals Vital Signs Date Time Temp Pulse Resp B/P (MAP) Pulse Ox O2 Delivery O2 Flow Rate FiO2 08/31/17 08:00 97.8 105 18 114/73 (87) 98 08/31/17 00:00 98.1 105 17 130/82 (98) 96 08/30/17 20:00 97.9 109 17 128/81 (97) 95 08/30/17 16:45 84 20 137/92 (107) 97 08/30/17 16:30 97.6 86 20 110/81 (91) 98 08/30/17 12:00 98.1 98 16 132/92 (105) 96 I/O 08/30/17 08/30/17 08/30/17 08/31/17 08/31/17 08/31/17 07:00 15:00 23:00 07:00 15:00 23:00 Intake Total 1160 ml Output Total 600 ml 1850 ml 2000 ml Balance -600 ml -1850 ml -840 ml Intake Oral 1160 ml Output Urine Total 600 ml 1850 ml 2000 ml # Bowel Movements 1 0 1 Result Diagram: 08/30/17 0532 08/30/17 0532 Imaging Last 72 hours Impressions Needle Aspiration CT 08/30/17 1356 Signed Impressions: CONCLUSION: 1. Uncomplicated procedure as above. Lumbar Spine CT 08/29/17 0000 Signed Impressions: CONCLUSION: 1. There is destructive changes involving the disc space at L4-5 characteristi c for discitis. 2. There are destructive changes predominantly in the body of L5 consistent wi th osteomyelitis. There is prominent paraspinal soft tissue swelling at the L4- L5 level. 3. Mild grade 1 anterior spondylolisthesis of L4 over L5. 4. Limited visualization of the spinal canal at L4-5 due to the inflammatory c hanges. 5. Bilateral facet arthritis at multiple levels. 6. Broad-based bulging at L2-3 and L3-4. Objective Remarks General: No acute distress. Heart: Regular rate and rhythm. No murmur. Lungs: Clear to auscultation bilaterally. No wheezes, rales, or rhonchi. Breathing is nonlabored. Abdomen: Soft, nontender, nondistended. Positive bowel sounds. Extremities: No lower extremity edema. Psych: Alert, oriented, answers questions appropriately. Neuro: No focal deficits noted. Back: Tender to palpation around the sacrum. Psych: Slightly flattened affect. 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 Osteomyelitis of the L5 vertebra/bilateral psoas muscle abscess/ bacteremia Status post CT-guided removal of fluid for culture as well as disc biopsy on 07/31. Appreciate neurosurgery, vascular surgery, infectious disease recommendations. Status post drainage of abscess on 08/14/17. Wound culture is negative. Mycobacterial and fungal cultures are pending. Bacteremia with Strep Anginosis. - Continue antibiotics per ID. - follow up with neurosurgery. [place] removed 08/26. - 08/28 as per neurosurgery recommendations the patient will need at least 6 weeks of IV antibiotics before procedure. Continue IV Rocephin. Follow-up repeat MRI. - 08/29 repeat MRI shows a persistence of fluid on the left. Persistent evidence of inflammatory process remains at the L4-5 disc. Discussed the case with Dr. Goldstein from ID who relayed to Dr. Sanchez will let her know if I recommend aspiration or any other procedures needed. We will start the patient on gabapentin for neuropathic pain at the lower back. - 08/31 the patient status post needle aspiration CT-guided of spinal fluid collection. As per report the patient had 6 cc of serosanguineous, purulent fluid removed. Follow-up cultures. Antibiotics per ID. Continue IV Rocephin. 2. Encephalopathy Likely toxic secondary to drug abuse. S/P lumbar puncture. Evaluated by psychiatry, patient is capable of making decisions. - resolved. - Avoid overly sedating medications. 3. Cocaine abuse Urine toxicology positive for cocaine. There was concern that the patient may have used cocaine while in the hospital as his urine drug screen was positive 8 days after admission. - cessation instruction. -Visitors allowed again. 4. Right iliac artery aneurysm Patient noted to have a 2.9 cm aneurysm of the right internal iliac artery, possibly mycotic aneurysm. This was an incidental finding. He denies IV drug abuse. Appreciate vascular surgery recommendations. - No surgery planned at this time. 5. Chronic kidney disease stage II with acute kidney injury. Creatinine seems stable. - monitor and avoid nephrotoxins. 6. Hypoglycemia Episodes of low blood sugar into the 60s. Blood sugars more stable. - ADAT. Continue Ensure. - check an insulin level. Obtain abdominal US if elevated. 6 07/01 insulin level elevated at 72.2. Peptide, proinsulin, insulin antibody and obtain an abdominal ultrasound. The blood sugars are not associated with symptoms. 7. Anemia Seems chronic. - check Hemoccult. - follow CBC. Anemia likely multifactorial. Follow-up stool blood Hemoccult. 8. Hypertension Blood pressure well controlled. -Clonidine discontinued - continue amlodipine. DVT prophylaxis: SCDs. Discharge Planning Continue to monitor on the medical floor. Patient will need ID clearance prior to discharge. Omari Van MD Aug 31, 2017 12:16
--- NOTE | 2017-08-31 13:02 | HHI.HCPN ---
Reason for visit a. To assist with evaluation and management of symptoms including: Pain, anxiety,debility b. To assist medical decision maker(s) with: better understanding of current medical conditions; weighing benefits/burdens of medical treatment options; making medical treatment decisions. . (Erasmo Vieyra) Subjective/Interval History Follow-up medically necessary for symptom management and further clarification of goals. Patient seen and examined in his room. Patient is alert, oriented to self, place and situation. Patient currently denies pain, but explains that whenever he has pain it starts from his lower back and it radiates to the bilateral lower extremities. Patient expressing frustration from prolonged hospitalization and recurrence of psoas abscess. Patient also explains how he feels helpless and depressed that he is not able to attend his brothers . Patient asking if he will be allowed to leave maybe for only for 8 hours and then come back to his room without going through the emergency department. Explained to patient that physicians have to discharge him and he most likely will have to come through the emergency room. Patient does not want to go through that, instead he said he would rather not go. Patient was started on gabapentin 300 mg TID for neuropathic pain. He also has cyclobenzaprine 5mg TID prn and Percocet 5mg q 4 hrs prn. Patient mentions that pain is relieved when he gets pain medication but exacerbated with movement. Patient reporting that he would want to be more ambulatory but pain is limiting him. Interim course: * Lumbar spine MRI on 08/28/17 revealed persistent fluid on the left and evidence of inflammatory process remains at the L4-5 disc with less inflammatory changes in the retroperitoneum * Lumbar spine CT on 08/29/17 revealed destructive changes involving the disc space at L4-5 characteristic for discitis. Destructive changes predominantly in the body of L5 consistent with osteomyelitis. Prominent paraspinal soft tissue swelling at the L4-L5 level. Bilateral facet arthritis at multiple levels. Broad-based bulging at L2-3 and L3-4. * Patient underwent CT-guided needle aspiration of psoas muscle abscess by interventional radiology * Laboratory workup on 08/30/17 revealing WBC 6.9, hemoglobin 8.6, hematocrit 26.6, platelet count 178, BUN/creatinine 26/1.43, total protein 8.3, albumin 2.0 Discussed concerns regarding recurrence of psoas abscess. Patient understands that antibiotic therapy may be longer that he thought and may necessarily not eradicate the osteomyelitis. Discussed concerns regarding prolonged hospitalization. Patient expressed again how he is feeling discouraged and frustrated, but wants to continue with aggressive treatment. Infectious disease and neurosurgery following. Case discussed with Dr. Dela Cruz and bedside RN. . Family/friend interactions No family at bedside . (Erasmo Vieyra) Advance Directives Living Will: Never completed Health Care Surrogate: Copy in medical record Durable Power of Toe Stapler: Never completed (Erasmo Vieyra) Advance Directive Specifics Date completed: 08/09/2017 . Health Care Surrogate(s): Healthcare surrogate-Friend- Jennifer Arrietao- [phone] Alternate healthcare surrogate -Son-Kalyan Gee [phone]/ 3rd choice- If the above-mentioned are not able to serve, patient designated his ex- -Kelly Gee as his second Alternate healthcare surrogate . Documented care wishes: No written documentation of health care goals/preferences . (Erasmo Vieyra) Objective Vital Signs Date Time Temp Pulse Resp B/P (MAP) Pulse Ox O2 Delivery O2 Flow Rate FiO2 08/31/17 08:00 97.8 105 18 114/73 (87) 98 08/31/17 00:00 98.1 105 17 130/82 (98) 96 08/30/17 20:00 97.9 109 17 128/81 (97) 95 08/30/17 16:45 84 20 137/92 (107) 97 08/30/17 16:30 97.6 86 20 110/81 (91) 98 Intake & Output 08/31/17 08/31/17 07:00 19:00 Intake Total 1160 ml Output Total 2000 ml Balance -840 ml Intake Oral 1160 ml Output Urine Total 2000 ml # Bowel Movements 1 Physical Exam CONSTITUTIONAL/GENERAL: This is an adequately nourished patient, in no acute distress TUBES/LINES/DRAINS:PIV SKIN: Dry.Surgical incision to left lateral abdomen hip area intact with no drainage. Normothermic. EYES: PERRLA. No scleral icterus. Fundi not examined. ENT: Hearing grossly normal. Nose without bleeding or purulent drainage. Moist oral mucosa NECK: Trachea midline. Supple, nontender. CARDIOVASCULAR: S1, S2 normal, no audible murmurs, gallops, or rubs. No JVD. RESPIRATORY/CHEST: Symmetric, unlabored respirations. Clear to auscultation. GASTROINTESTINAL: Abdomen soft, non-tender, nondistended. No guarding. Bowel sounds present. GENITOURINARY: Without palpable bladder distension. MUSCULOSKELETAL: Extremities without clubbing, cyanosis, or edema. NEUROLOGICAL: Awake and alert. Oriented to self, place and situation. Follows commands with all 4 extremities. PSYCHIATRIC: No obvious anxiety/depression. No apparent hallucinations or other psychotic thought process. . (Eramso Vieyra) Diagnostic Tests Laboratory Laboratory Tests Test 08/28/17 20:07 08/29/17 05:34 08/29/17 13:59 08/29/17 16:30 Hemoglobin 8.5 GM/DL (13.0-17.0) 9.0 GM/DL (13.0-17.0) Hematocrit 26.1 % (39.0-51.0) 27.3 % (39.0-51.0) C-Reactive Protein 4.88 MG/DL (0.00-0.30) Prothrombin Time 11.3 SEC (9.8-11.6) Prothromb Time International Ratio 1.1 RATIO Activated Partial Thromboplast Time 25.1 SEC (24.3-30.1) Blood Urea Nitrogen 25 MG/DL (7-18) Creatinine 1.53 MG/DL (0.60-1.30) Random Glucose 102 MG/DL (74-106) Total Protein 8.6 GM/DL (6.4-8.2) Albumin 2.0 GM/DL (3.4-5.0) Calcium Level 7.9 MG/DL (8.5-10.1) Alkaline Phosphatase 307 U/L (45-117) Aspartate Amino Transf (AST/SGOT) 56 U/L (15-37) Alanine Aminotransferase (ALT/SGPT) 33 U/L (12-78) Total Bilirubin 0.3 MG/DL (0.2-1.0) Sodium Level 138 MEQ/L (136-145) Potassium Level 4.5 MEQ/L (3.5-5.1) Chloride Level 102 MEQ/L (98-107) Carbon Dioxide Level 27.5 MEQ/L (21.0-32.0) Anion Gap 9 MEQ/L (5-15) Estimat Glomerular Filtration Rate 58 ML/MIN (>89) White Blood Count 7.7 TH/MM3 (4.0-11.0) Red Blood Count 3.06 MIL/MM3 (4.50-5.90) Mean Corpuscular Volume 89.1 FL (80.0-100.0) Mean Corpuscular Hemoglobin 29.5 PG (27.0-34.0) Mean Corpuscular Hemoglobin Concent 33.1 % (32.0-36.0) Red Cell Distribution Width 16.2 % (11.6-17.2) Platelet Count 185 TH/MM3 (150-450) Mean Platelet Volume 7.7 FL (7.0-11.0) Neutrophils (%) (Auto) 79.1 % (16.0-70.0) Lymphocytes (%) (Auto) 11.2 % (9.0-44.0) Monocytes (%) (Auto) 6.8 % (0.0-8.0) Eosinophils (%) (Auto) 2.4 % (0.0-4.0) Basophils (%) (Auto) 0.5 % (0.0-2.0) Neutrophils # (Auto) 6.1 TH/MM3 (1.8-7.7) Lymphocytes # (Auto) 0.9 TH/MM3 (1.0-4.8) Monocytes # (Auto) 0.5 TH/MM3 (0-0.9) Eosinophils # (Auto) 0.2 TH/MM3 (0-0.4) Basophils # (Auto) 0.0 TH/MM3 (0-0.2) CBC Comment DIFF FINAL Differential Comment Test 08/30/17 05:32 White Blood Count 6.9 TH/MM3 (4.0-11.0) Red Blood Count 2.99 MIL/MM3 (4.50-5.90) Hemoglobin 8.6 GM/DL (13.0-17.0) Hematocrit 26.6 % (39.0-51.0) Mean Corpuscular Volume 89.0 FL (80.0-100.0) Mean Corpuscular Hemoglobin 28.7 PG (27.0-34.0) Mean Corpuscular Hemoglobin Concent 32.2 % (32.0-36.0) Red Cell Distribution Width 16.1 % (11.6-17.2) Platelet Count 178 TH/MM3 (150-450) Mean Platelet Volume 7.1 FL (7.0-11.0) Neutrophils (%) (Auto) 72.2 % (16.0-70.0) Lymphocytes (%) (Auto) 12.8 % (9.0-44.0) Monocytes (%) (Auto) 10.7 % (0.0-8.0) Eosinophils (%) (Auto) 3.4 % (0.0-4.0) Basophils (%) (Auto) 0.9 % (0.0-2.0) Neutrophils # (Auto) 5.0 TH/MM3 (1.8-7.7) Lymphocytes # (Auto) 0.9 TH/MM3 (1.0-4.8) Monocytes # (Auto) 0.7 TH/MM3 (0-0.9) Eosinophils # (Auto) 0.2 TH/MM3 (0-0.4) Basophils # (Auto) 0.1 TH/MM3 (0-0.2) CBC Comment DIFF FINAL Differential Comment Blood Urea Nitrogen 26 MG/DL (7-18) Creatinine 1.43 MG/DL (0.60-1.30) Random Glucose 64 MG/DL (74-106) Total Protein 8.3 GM/DL (6.4-8.2) Albumin 2.0 GM/DL (3.4-5.0) Calcium Level 7.6 MG/DL (8.5-10.1) Phosphorus Level 4.2 MG/DL (2.5-4.9) Magnesium Level 1.8 MG/DL (1.5-2.5) Alkaline Phosphatase 287 U/L (45-117) Aspartate Amino Transf (AST/SGOT) 47 U/L (15-37) Alanine Aminotransferase (ALT/SGPT) 28 U/L (12-78) Total Bilirubin 0.3 MG/DL (0.2-1.0) Sodium Level 139 MEQ/L (136-145) Potassium Level 4.8 MEQ/L (3.5-5.1) Chloride Level 103 MEQ/L (98-107) Carbon Dioxide Level 29.4 MEQ/L (21.0-32.0) Anion Gap 7 MEQ/L (5-15) Estimat Glomerular Filtration Rate 62 ML/MIN (>89) (Erasmo Vieyra [facility]) Result Diagram: 08/30/17 0532 08/30/17 0532 Microbiology Microbiology Date/Time Source Procedure Growth Status 08/30/17 16:00 Abscess Abdomen Gram Stain - Final Resulted 08/30/17 16:00 Abscess Abdomen Wound Culture Pending Resulted Imaging Last Impressions Needle Aspiration CT 08/30/17 1356 Signed Impressions: CONCLUSION: 1. Uncomplicated procedure as above. Lumbar Spine CT 08/29/17 0000 Signed Impressions: CONCLUSION: 1. There is destructive changes involving the disc space at L4-5 characteristi c for discitis. 2. There are destructive changes predominantly in the body of L5 consistent wi th osteomyelitis. There is prominent paraspinal soft tissue swelling at the L4- L5 level. 3. Mild grade 1 anterior spondylolisthesis of L4 over L5. 4. Limited visualization of the spinal canal at L4-5 due to the inflammatory c hanges. 5. Bilateral facet arthritis at multiple levels. 6. Broad-based bulging at L2-3 and L3-4. Lumbar Spine MRI 08/28/17 0000 Signed Impressions: CONCLUSION: 1. Improvement as above. Persistent fluid remains on the left. Persistent evid ence for inflammatory process remains at the L4-5 disc. 2. Less inflammatory changes in the retroperitoneum. Chest X-Ray 08/15/17 0000 Signed Impressions: Service Date/Time: Tuesday, August 15, 2017 11:34 - CONCLUSION: Mild compensated cardiomegaly Roly Reina MD FACR Lumbar Puncture Fluoroscopy 08/08/17 0000 Signed Impressions: Service Date/Time: Tuesday, August 08, 2017 15:42 - CONCLUSION: Uncomplicated fluoroscopically guided lumbar puncture. Fady Chan MD Needle Biopsy/Aspiration X-Ray 07/31/17 0000 Signed Impressions: Service Date/Time: Monday, July 31, 2017 13:29 - CONCLUSION: Uncomplicated needle biopsy of the L4/L5 disc space as above. Candelario Reina MD Abdomen/Pelvis CT 07/29/17 0000 Signed Impressions: Service Date/Time: Saturday, July 29, 2017 22:14 - CONCLUSION: 1. Significant new prevertebral soft tissue fullness and stranding centered at the L5 level. There is associated sclerosis and erosive changes in the anterior L5 vertebral body which appear unchanged from recent exams. Overall, findings are concerning for discitis and osteomyelitis. Consider repeat MRI examination for further evaluation. 2. 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 However, evaluation is significantly limited due to lack of IV contrast on this exam. This was not present on remote prior CT exam. A mycotic aneurysm cannot be entirely excluded. Contrast enhanced examination would be greatly beneficial in further evaluation. 3. Nodular appearing liver contour consistent with cirrhosis. 4. IVC filter in place. 5. Cholelithiasis. Tanner Jones MD Last 72 hours Impressions Needle Aspiration CT 08/30/17 1356 Signed Impressions: CONCLUSION: 1. Uncomplicated procedure as above. Lumbar Spine CT 08/29/17 0000 Signed Impressions: CONCLUSION: 1. There is destructive changes involving the disc space at L4-5 characteristi c for discitis. 2. There are destructive changes predominantly in the body of L5 consistent wi th osteomyelitis. There is prominent paraspinal soft tissue swelling at the L4- L5 level. 3. Mild grade 1 anterior spondylolisthesis of L4 over L5. 4. Limited visualization of the spinal canal at L4-5 due to the inflammatory c hanges. 5. Bilateral facet arthritis at multiple levels. 6. Broad-based bulging at L2-3 and L3-4. Procedures 08/08/17 needle biopsy of the L4/L5 disc space/aspiration x-ray 08/14/17-lateral oblique approach for drainage of lumbar retroperitoneal and bilateral psoas muscle abscess by neurosurgery 08/14/17-Retroperitoneal approach to the psoas muscle and drainage of psoas abscess and paraspinal abscess drainage by general surgery 08/30/1741-[id number] needle aspiration of psoas muscle abscess. . (Erasmo Vieyra) Assessment and Plan Disease Oriented Problem List: (1) Osteomyelitis (2) Cocaine abuse (3) Mycotic aneurysm (4) CKD (chronic kidney disease) stage 3, GFR 30-59 ml/min Comment: Improving. . (5) Hypertension (6) Rheumatoid arthritis Symptom Scale: (1) Pain 0-10 Scale: 10 Comment: All his pain complaints are low back. Inadequately helped by current regimen. Pain normally 9-10 decreasing to 8-9 after parenteral hydromorphone. . . (2) Anxiety Comment: Patient reported to psychiatry that he was feeling anxious . (3) Debility Comment: Progressive . Pertinent Non-Medical Issues Psychosocial:Patient was born and raised in [place]. Patient is . Patient's highest level of education is high school. He is currently unemployed and disabled. Patient has 1 son Gerard Biggs Jr. He has been living with his nephew Jennifer Kendrick for the past 4 years. Spiritual: Patient is Mandaeism Legal: No living will. Health care surrogate designation completed 08/09/17 -- he wants his friend Jennifer Manuel to serve. Ethical issues impacting care: None identified at this time . Important Contacts JenniferMireille polanco (Health care surrogate and close friend) -[phone]/ (he has been living with patient for the past 4 years) Kalyan Gee Jr (son and alternate HCS) - [phone] Cell/[phone] work Kelly Gee (ex- and 2nd alternate HCS) Patricia Joy ( of Jennifer Manuel) [phone] Brother- Miles Gee [phone] PATIENT HAS GIVEN PERMISSION TO DISCUSS DETAILS OF HIS CASE AND CARE WITH THE ABOVE. . . Prognosis Mr. Gee is a 57-year-old male with a past medical history significant for chronic back pain, lumbar osteomyelitis and discitis s/p L4-L5 laminectomy 2013 , rheumatoid arthritis, hyperlipidemia, chronic kidney stage III, cocaine abuse and tobacco abuse. Patient presented to the ER on 07/29/17 with complaints of severe back pain. Diagnostic tests revealed lumbar osteomyelitis with retroperitoneal/prevertebral abscess. Clinical course complicated with pain, anxiety and early recurrence of psoas abscess. Imaging has shown worsening infection over course of hospitalization. Patient underwent lateral oblique approach for drainage of lumbar retroperitoneal and bilateral psoas muscle abscess on 08/14/17. He now requires chief pilot intravenous antibiotic therapy. Last MRI 08/28/17 of lumbar spine showing recurrent psoas abscess. Prognosis appears poor. . Code Status: Full Code Plan PLAN: CODE STATUS: Full code Legal decision maker: Patient has been deemed capacitated to participate in medical decision making by psychiatry on 08/08/17. In the event that he is incapacitated patient has designated his friend Jennifer Kendrick to serve as his health care surrogate, and his son Gerard Hull Jr as his alternate healthcare surrogate and if the above mentioned are not able to serve, he chose his ex- Kelly Gee as his other alternate Healthcare Surrogate. Goals: Remain aggressive. Per case management notes on 08/24 patient will remain inhouse for antibiotic therapy and possible surgery with instrumentation due to difficult placement. Patient`s last MRI of lumbar spine on 08/28/17 showed recurrence of psoas abscess. Patient expressing frustration of his worsening condition and prolonged hospitalization. Readdressed goals and patient`s goals remain aggressive, he wants everything possible to be done to get him better. Patient at this time expresses his willingness to go through any invasive procedures advised by physicians following with him. SYMPTOMS: * Pain: Patient complaining of severe lower back pain. Patient had osteomyelitis and is s/p drainage of lumbar retroperitoneal and bilateral psoas muscle abscess 08/14/17. Patient endorsing "nerve" neuropathic pain from lower back radiating towards his legs which is exacerbated with activity. Patient was started on Gabapentin. Denying pain during visit, explains that it is exacerbated with movement. Pain medication and muscle relaxant appears adequate. * Anxiety: Patient reported to psychiatry that he feels anxious. Has lorazepam ordered q 2 hours prn. Appears to be adequate. Denies feeling anxious, instead reports feeling down after he received news that his young brother . No further recommendation at this time. * Debility: Patient is being progressively getting weaker and not able to ambulate long distances at home due to severe back pain. Physical therapy recommended home with no PT. Last seen with PT 08/23. Patient ambulating from bed to bedside commode. Patient reporting that he would want to be more ambulatory but pain is limiting him. Recommending PT to continue following with patient since he is going to be here for a long time. == Palliative care will continue to follow to assist with symptom management and to further clarify goals of medical treatment as the clinical course evolves. . (Erasmo Vieyra) Attestation To help prompt me to consider important information that might be impacting today's encounter and assessment, information from prior notes written by myself or my colleagues may have been "brought forward" into today's note. My signature on this note, however, is an attestation that I personally performed the exam, history, and/or decision-making noted today, and, unless otherwise indicated, the interactions with patient, family, and staff as well as the review of records all occurred today. I also attest that the listed assessment and stated plan reflect my best clinical judgment today based on the combination of historical information, prior notes, and today's exam/ interactions. When time spent is documented, it refers only to time spent today by the signer, or if indicated, combined time spent today by collaborating physician/nurse practitioner. (Erasmo Vieyra) Collaborating MD Comments Chart reviewed. Case discussed with palliative care ADMINISTRATIVE PROFESSIONAL. Above ADMINISTRATIVE PROFESSIONAL note reviewed and I concur. . (Matt Toney MD) Erasmo Vieyra Aug 31, 2017 13:01 Matt Toney MD Sep 15, 2017 15:54
[2017-08-31 13:54] LABS: HEMATOCRIT 30.4 % (39.0-51.0); HEMOGLOBIN 9.7 GM/DL (13.0-17.0); MEAN CELL VOLUME 89.9 FL (80.0-100.0); MEAN CORPUSCULAR HEMOGLOBIN 28.8 PG (27.0-34.0); MEAN PLATELET VOLUME 7.4 FL (7.0-11.0); PLATELET COUNT 191 TH/MM3 (150-450); RED BLOOD COUNT 3.38 MIL/MM3 (4.50-5.90); RED CELL DISTRIBUTION WIDTH 16.4 % (11.6-17.2); WHITE BLOOD COUNT 7.4 TH/MM3 (4.0-11.0)
[2017-08-31 14:28] LABS: BICARBONATE 28.3 MEQ/L (21.0-32.0); CALCIUM 8.3 MG/DL (8.5-10.1); CREATININE 1.78 MG/DL (0.60-1.30)
[2017-08-31 16:00] VITALS: BP 137/80; PULSE 95; RESP 16; TEMP 97.5; O2SAT 94
[2017-08-31 20:00] VITALS: BP 93/61; PULSE 96; RESP 18; TEMP 97.8; O2SAT 94
[2017-09-01] VITALS: BP 122/71; PULSE 92; RESP 18; TEMP 97.7; O2SAT 96
[2017-09-01] MEDS: CYCLOBENZAPRINE HCL 10 MG TAB PO PRN ×3 (03:55→13:53)
[2017-09-01] MEDS: oxyCODONE/ACETAMINOPHEN 5 MG/325 MG TAB PO PRN ×4 (03:58→17:56)
[2017-09-01 05:47] LABS: HEMATOCRIT 30.5 % (39.0-51.0); HEMOGLOBIN 9.8 GM/DL (13.0-17.0); MEAN CELL VOLUME 90.8 FL (80.0-100.0); MEAN CORPUSCULAR HEMOGLOBIN 29.3 PG (27.0-34.0); MEAN CORPUSCULAR HGB CONC 32.3 % (32.0-36.0); PLATELET COUNT 186 TH/MM3 (150-450); RED BLOOD COUNT 3.35 MIL/MM3 (4.50-5.90); RED CELL DISTRIBUTION WIDTH 16.6 % (11.6-17.2); WHITE BLOOD COUNT 7.2 TH/MM3 (4.0-11.0)
[2017-09-01 06:08] LABS: BICARBONATE 26.2 MEQ/L (21.0-32.0); CALCIUM 8.5 MG/DL (8.5-10.1); CREATININE 1.91 MG/DL (0.60-1.30)
[2017-09-01 08:00] VITALS: BP 182/88; PULSE 101; RESP 18; TEMP 98.2; O2SAT 97
[2017-09-01] MEDS: ENALAPRILAT 2.5 MG/2 ML VIAL IV PUSH PRN (08:10)
[2017-09-01] MEDS: GABAPENTIN 300 MG CAP PO SCH ×3 (08:10→17:56)
[2017-09-01] MEDS: FAMOTIDINE 20 MG TAB PO SCH ×2 (08:11→20:46)
[2017-09-01] MEDS: predniSONE 10 MG TAB PO SCH (08:11)
[2017-09-01] MEDS: SODIUM CHLORIDE 0.9% FLUSH 10 ML FLUSH IV FLUSH SCH ×2 (08:12→20:46)
[2017-09-01] MEDS: DOCUSATE SODIUM 50 MG/SENNA 8.6 MG TAB PO SCH ×2 (08:12→20:46)
[2017-09-01] MEDS: LACTIC ACID (AMMONIUM LACTATE) 12% LOTION 225 GM BTL TOPICAL SCH ×4 (08:13→20:47)
[2017-09-01] MEDS: POLYETHYLENE GLYCOL 17 GM PKG PO SCH (08:14)
[2017-09-01] MEDS: cefTRIAXone INJ 2,000 MG in SODIUM CHLORIDE 0.9% INJ 100 ML IV SCH ×2 (09:44→20:47)
[2017-09-01 12:00] VITALS: BP 127/66; PULSE 98; RESP 18; TEMP 98.3; O2SAT 97
--- NOTE | 2017-09-01 15:42 | HHI.PR ---
Subjective Remarks Deferred entry, the patient was seen earlier at 12 PM. The patient complains of low back pain and reports shooting pain down the right leg when he tries to stand up. The patient denies fevers or chills Patient is satting well on 3 L nasal cannula. Objective Vitals Vital Signs Date Time Temp Pulse Resp B/P (MAP) Pulse Ox O2 Delivery O2 Flow Rate FiO2 09/01/17 12:00 98.3 98 18 127/66 (86) 97 09/01/17 08:00 98.2 101 18 182/88 (119) 97 09/01/17 00:00 97.7 92 18 122/71 (88) 96 08/31/17 20:00 97.8 96 18 93/61 (72) 94 08/31/17 16:00 97.5 95 16 137/80 (99) 94 I/O 08/31/17 08/31/17 08/31/17 09/01/17 09/01/17 09/01/17 06:59 14:59 22:59 06:59 14:59 22:59 Intake Total 1160 ml 100 ml 960 ml 600 ml Output Total 2000 ml 650 ml 400 ml Balance -840 ml 100 ml 310 ml 200 ml Intake Oral 1160 ml 960 ml 600 ml IV Total 100 ml Output Urine Total 2000 ml 650 ml 400 ml # Bowel Movements 1 0 0 Result Diagram: 09/01/17 0452 09/01/17 0452 Objective Remarks General: No acute distress. Heart: Regular rate and rhythm. No murmur. Lungs: Clear to auscultation bilaterally. No wheezes, rales, or rhonchi. Breathing is nonlabored. Abdomen: Soft, nontender, nondistended. Positive bowel sounds. Extremities: No lower extremity edema. Psych: Alert, oriented, answers questions appropriately. Neuro: No focal deficits noted. Back: Tender to palpation around the sacrum. Psych: Slightly flattened affect. 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 Osteomyelitis of the L5 vertebra/bilateral psoas muscle abscess/ bacteremia Status post CT-guided removal of fluid for culture as well as disc biopsy on 07/31. Appreciate neurosurgery, vascular surgery, infectious disease recommendations. Status post drainage of abscess on 08/14/17. Wound culture is negative. Mycobacterial and fungal cultures are pending. Bacteremia with Strep Anginosis. - Continue antibiotics per ID. - follow up with neurosurgery. [place] removed 08/26. - 08/28 as per neurosurgery recommendations the patient will need at least 6 weeks of IV antibiotics before procedure. Continue IV Rocephin. Follow-up repeat MRI. - 08/29 repeat MRI shows a persistence of fluid on the left. Persistent evidence of inflammatory process remains at the L4-5 disc. Discussed the case with Dr. Goldstein from [place] who relayed to Dr. Sanchez will let her know if I recommend aspiration or any other procedures needed. We will start the patient on gabapentin for neuropathic pain at the lower back. - The patient status post needle aspiration CT-guided of spinal fluid collection. As per report the patient had 6 cc of serosanguineous, purulent fluid removed. Follow-up cultures. Antibiotics per ID. Continue IV Rocephin. - 09/01 the patient still complains of radicular pain and pain in the lower back. I will increase the dose of gabapentin from 300 mg p.o. 3 times daily to 600 mg p.o. 3 times daily. Continue pain control management as above. 2. Encephalopathy Likely toxic secondary to drug abuse. S/P lumbar puncture. Evaluated by psychiatry, patient is capable of making decisions. - resolved. - Avoid overly sedating medications. 3. Cocaine abuse Urine toxicology positive for cocaine. There was concern that the patient may have used cocaine while in the hospital as his urine drug screen was positive 8 days after admission. - cessation instruction. -Visitors allowed again. 4. Right iliac artery aneurysm Patient noted to have a 2.9 cm aneurysm of the right internal iliac artery, possibly mycotic aneurysm. This was an incidental finding. He denies IV drug abuse. Appreciate vascular surgery recommendations. - No surgery planned at this time. 5. Chronic kidney disease stage II with acute kidney injury. Creatinine seems stable. - monitor and avoid nephrotoxins. 6. Hypoglycemia Episodes of low blood sugar into the 60s. Blood sugars more stable. - ADAT. Continue Ensure. - check an insulin level. Obtain abdominal US if elevated. 6 07/01 insulin level elevated at 72.2. Peptide, proinsulin, insulin antibody and obtain an abdominal ultrasound. The blood sugars are not associated with symptoms. 7. Anemia Seems chronic. - check Hemoccult. - follow CBC. Anemia likely multifactorial. Follow-up stool blood Hemoccult. 8. Hypertension Blood pressure well controlled. -Clonidine discontinued - continue amlodipine. DVT prophylaxis: SCDs. Discharge Planning Continue to monitor on the medical floor. Patient will need ID clearance prior to discharge. Omari Van MD Sep 01, 2017 15:42
[2017-09-01 16:00] VITALS: BP 107/58; PULSE 102; RESP 18; TEMP 98.5; O2SAT 97
[2017-09-01 20:00] VITALS: BP 139/67; PULSE 99; RESP 17; TEMP 97.9; O2SAT 96
[2017-09-02] VITALS: BP 110/65; PULSE 94; RESP 17; TEMP 97.3; O2SAT 99
[2017-09-02] MEDS: POLYETHYLENE GLYCOL 17 GM PKG PO SCH (07:54)
[2017-09-02] MEDS: GABAPENTIN 300 MG CAP PO SCH ×3 (07:55→17:49)
[2017-09-02] MEDS: predniSONE 10 MG TAB PO SCH (07:56)
[2017-09-02] MEDS: oxyCODONE/ACETAMINOPHEN 5 MG/325 MG TAB PO PRN ×3 (07:56→16:10)
[2017-09-02] MEDS: FAMOTIDINE 20 MG TAB PO SCH ×2 (07:56→21:26)
[2017-09-02] MEDS: CYCLOBENZAPRINE HCL 10 MG TAB PO PRN ×2 (07:56→16:10)
[2017-09-02] MEDS: DOCUSATE SODIUM 50 MG/SENNA 8.6 MG TAB PO SCH ×2 (07:56→21:00)
[2017-09-02] MEDS: SODIUM CHLORIDE 0.9% FLUSH 10 ML FLUSH IV FLUSH SCH ×2 (07:57→21:27)
[2017-09-02 08:00] VITALS: BP 115/89; PULSE 90; RESP 18; TEMP 98.6; O2SAT 95
[2017-09-02] MEDS: LACTIC ACID (AMMONIUM LACTATE) 12% LOTION 225 GM BTL TOPICAL SCH ×4 (09:00→21:00)
[2017-09-02] MEDS: cefTRIAXone INJ 2,000 MG in SODIUM CHLORIDE 0.9% INJ 100 ML IV SCH ×2 (09:26→21:27)
[2017-09-02 12:00] VITALS: BP 145/86; PULSE 105; RESP 18; TEMP 98.5; O2SAT 95
--- NOTE | 2017-09-02 13:18 | HHI.PR ---
Subjective Remarks Pending back is better. Denies fevers or chills. Good appetite. Objective Vitals Vital Signs Date Time Temp Pulse Resp B/P (MAP) Pulse Ox O2 Delivery O2 Flow Rate FiO2 09/02/17 12:00 98.5 105 18 145/86 (105) 95 09/02/17 08:00 98.6 90 18 115/89 (98) 95 09/02/17 00:00 97.3 94 17 110/65 (80) 99 09/01/17 20:00 97.9 99 17 139/67 (91) 96 09/01/17 16:00 98.5 102 18 107/58 (74) 97 I/O 09/01/17 09/01/17 09/01/17 09/02/17 09/02/17 09/02/17 07:00 15:00 23:00 07:00 15:00 23:00 Intake Total 600 ml 100 ml 1200 ml 740 ml Output Total 400 ml 500 ml 500 ml Balance 200 ml 100 ml 700 ml 240 ml Intake Oral 600 ml 1200 ml 640 ml IV Total 100 ml 100 ml Output Urine Total 400 ml 500 ml 500 ml # Voids 2 # Bowel Movements 0 1 2 Result Diagram: 09/01/17 0452 09/01/17 0452 Objective Remarks General: No acute distress. Heart: Regular rate and rhythm. No murmur. Lungs: Clear to auscultation bilaterally. No wheezes, rales, or rhonchi. Breathing is nonlabored. Abdomen: Soft, nontender, nondistended. Positive bowel sounds. Extremities: No lower extremity edema. Psych: Alert, oriented, answers questions appropriately. Neuro: No focal deficits noted. Back: Tender to palpation around the sacrum. Psych: Slightly flattened affect. 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 Osteomyelitis of the L5 vertebra/bilateral psoas muscle abscess/ bacteremia Status post CT-guided removal of fluid for culture as well as disc biopsy on 07/31. Appreciate neurosurgery, vascular surgery, infectious disease recommendations. Status post drainage of abscess on 08/14/17. Wound culture is negative. Mycobacterial and fungal cultures are pending. Bacteremia with Strep Anginosis. - Continue antibiotics per ID. - follow up with neurosurgery. Mentcle removed 08/26. - 08/28 as per neurosurgery recommendations the patient will need at least 6 weeks of IV antibiotics before procedure. Continue IV Rocephin. Follow-up repeat MRI. - 08/29 repeat MRI shows a persistence of fluid on the left. Persistent evidence of inflammatory process remains at the L4-5 disc. Discussed the case with Dr. Goldstein from ID who relayed to Dr. Sanchez will let her know if I recommend aspiration or any other procedures needed. We will start the patient on gabapentin for neuropathic pain at the lower back. - The patient status post needle aspiration CT-guided of spinal fluid collection. As per report the patient had 6 cc of serosanguineous, purulent fluid removed. Follow-up cultures. Antibiotics per ID. Continue IV Rocephin. - 09/01 the patient still complains of radicular pain and pain in the lower back. I will increase the dose of gabapentin from 300 mg p.o. 3 times daily to 600 mg p.o. 3 times daily. Continue pain control management as above. - 09/02 pain is better controlled. Continue pain control with gabapentin 600 mg p.o. 3 times a day, oxycodone as needed. 2. Encephalopathy Likely toxic secondary to drug abuse. S/P lumbar puncture. Evaluated by psychiatry, patient is capable of making decisions. - resolved. - Avoid overly sedating medications. 3. Cocaine abuse Urine toxicology positive for cocaine. There was concern that the patient may have used cocaine while in the hospital as his urine drug screen was positive 8 days after admission. - cessation instruction. -Visitors allowed again. 4. Right iliac artery aneurysm Patient noted to have a 2.9 cm aneurysm of the right internal iliac artery, possibly mycotic aneurysm. This was an incidental finding. He denies IV drug abuse. Appreciate vascular surgery recommendations. - No surgery planned at this time. 5. Chronic kidney disease stage II with acute kidney injury. Creatinine seems stable. - monitor and avoid nephrotoxins. 6. Hypoglycemia Episodes of low blood sugar into the 60s. Blood sugars more stable. - ADAT. Continue Ensure. - check an insulin level. Obtain abdominal US if elevated. 6 07/01 insulin level elevated at 72.2. Peptide, proinsulin, insulin antibody and obtain an abdominal ultrasound. The blood sugars are not associated with symptoms. 7. Anemia Seems chronic. - check Hemoccult. - follow CBC. Anemia likely multifactorial. Follow-up stool blood Hemoccult. -Hemoglobin stable. 8. Hypertension Blood pressure well controlled. -Clonidine discontinued - continue amlodipine. DVT prophylaxis: SCDs. Add Lovenox subcutaneously. Discharge Planning Continue to monitor on the medical floor. Patient will need ID clearance prior to discharge. Omari Van MD Sep 02, 2017 13:18
[2017-09-02 16:00] VITALS: BP 125/75; PULSE 91; RESP 18; TEMP 98.9; O2SAT 95
[2017-09-02] MEDS: ENOXAPARIN SODIUM 40 MG/0.4 ML SYRINGE SQ SCH (16:10)
[2017-09-02 20:00] VITALS: BP 120/63; PULSE 96; RESP 18; TEMP 97.9; O2SAT 95
[2017-09-03] VITALS: BP 138/82; PULSE 96; RESP 18; TEMP 98; O2SAT 97
[2017-09-03] MEDS: oxyCODONE/ACETAMINOPHEN 5 MG/325 MG TAB PO PRN ×3 (02:35→23:29)
[2017-09-03] MEDS: CYCLOBENZAPRINE HCL 10 MG TAB PO PRN (02:39)
[2017-09-03 08:00] VITALS: BP 164/95; PULSE 97; RESP 17; TEMP 97.8; O2SAT 95
[2017-09-03] MEDS: LACTIC ACID (AMMONIUM LACTATE) 12% LOTION 225 GM BTL TOPICAL SCH ×4 (09:00→21:00)
[2017-09-03] MEDS: POLYETHYLENE GLYCOL 17 GM PKG PO SCH (09:00)
[2017-09-03] MEDS: cefTRIAXone INJ 2,000 MG in SODIUM CHLORIDE 0.9% INJ 100 ML IV SCH ×2 (10:40→21:32)
[2017-09-03] MEDS: GABAPENTIN 300 MG CAP PO SCH ×3 (10:40→17:00)
[2017-09-03] MEDS: FAMOTIDINE 20 MG TAB PO SCH ×3 (10:41→21:32)
[2017-09-03] MEDS: DOCUSATE SODIUM 50 MG/SENNA 8.6 MG TAB PO SCH ×3 (10:41→21:32)
[2017-09-03] MEDS: predniSONE 10 MG TAB PO SCH (10:41)
[2017-09-03] MEDS: SODIUM CHLORIDE 0.9% FLUSH 10 ML FLUSH IV FLUSH SCH ×2 (10:43→21:32)
[2017-09-03 12:00] VITALS: BP 151/98; PULSE 100; RESP 17; TEMP 98.3; O2SAT 96
--- NOTE | 2017-09-03 14:10 | HHI.PR ---
Subjective Remarks The patient states that after gabapentin dose was increased his back pain is much improved. Denies fevers or chills. Still tachycardic. Objective Vitals Vital Signs Date Time Temp Pulse Resp B/P (MAP) Pulse Ox O2 Delivery O2 Flow Rate FiO2 09/03/17 12:00 98.3 100 17 151/98 (115) 96 09/03/17 08:00 97.8 97 17 164/95 (118) 95 09/03/17 00:00 98.0 96 18 138/82 (100) 97 09/02/17 20:00 97.9 96 18 120/63 (82) 95 09/02/17 16:00 98.9 91 18 125/75 (92) 95 I/O 09/02/17 09/02/17 09/02/17 09/03/17 09/03/17 09/03/17 07:00 15:00 23:00 07:00 15:00 23:00 Intake Total 740 ml 100 ml 1200 ml 580 ml Output Total 500 ml 1000 ml 900 ml Balance 240 ml 100 ml 200 ml -320 ml Intake Oral 640 ml 1200 ml 480 ml IV Total 100 ml 100 ml 100 ml Output Urine Total 500 ml 1000 ml 900 ml # Bowel Movements 2 0 1 Result Diagram: 09/01/1745109/01/17451 Objective Remarks General: No acute distress. Heart: Regular rate and rhythm. No murmur. Lungs: Clear to auscultation bilaterally. No wheezes, rales, or rhonchi. Breathing is nonlabored. Abdomen: Soft, nontender, nondistended. Positive bowel sounds. Extremities: No lower extremity edema. Psych: Alert, oriented, answers questions appropriately. Neuro: No focal deficits noted. Back: Tender to palpation around the sacrum. Psych: Slightly flattened affect. 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 Osteomyelitis of the L5 vertebra/bilateral psoas muscle abscess/ bacteremia Status post CT-guided removal of fluid for culture as well as disc biopsy on 07/31. Appreciate neurosurgery, vascular surgery, infectious disease recommendations. Status post drainage of abscess on 08/14/17. Wound culture is negative. Mycobacterial and fungal cultures are pending. Bacteremia with Strep Anginosis. - Continue antibiotics per ID. - follow up with neurosurgery. Graton removed 08/26. - 08/28 as per neurosurgery recommendations the patient will need at least 6 weeks of IV antibiotics before procedure. Continue IV Rocephin. Follow-up repeat MRI. - 08/29 repeat MRI shows a persistence of fluid on the left. Persistent evidence of inflammatory process remains at the L4-5 disc. Discussed the case with Dr. Goldstein from ID who relayed to Dr. Sanchez will let her know if I recommend aspiration or any other procedures needed. We will start the patient on gabapentin for neuropathic pain at the lower back. - The patient status post needle aspiration CT-guided of spinal fluid collection. As per report the patient had 6 cc of serosanguineous, purulent fluid removed. Follow-up cultures. Antibiotics per ID. Continue IV Rocephin. - 09/01 the patient still complains of radicular pain and pain in the lower back. I will increase the dose of gabapentin from 300 mg p.o. 3 times daily to 600 mg p.o. 3 times daily. Continue pain control management as above. - 09/02 pain is better controlled. Continue pain control with gabapentin 600 mg p.o. 3 times a day, oxycodone as needed. 2. Encephalopathy Likely toxic secondary to drug abuse. S/P lumbar puncture. Evaluated by psychiatry, patient is capable of making decisions. - resolved. - Avoid overly sedating medications. 3. Cocaine abuse Urine toxicology positive for cocaine. There was concern that the patient may have used cocaine while in the hospital as his urine drug screen was positive 8 days after admission. - cessation instruction. -Visitors allowed again. 4. Right iliac artery aneurysm Patient noted to have a 2.9 cm aneurysm of the right internal iliac artery, possibly mycotic aneurysm. This was an incidental finding. He denies IV drug abuse. Appreciate vascular surgery recommendations. - No surgery planned at this time. 5. Chronic kidney disease stage II with acute kidney injury. Creatinine seems stable. - monitor and avoid nephrotoxins. 6. Hypoglycemia Episodes of low blood sugar into the 60s. Blood sugars more stable. - ADAT. Continue Ensure. - check an insulin level. Obtain abdominal US if elevated. 6 07/01 insulin level elevated at 72.2. Peptide, proinsulin, insulin antibody and obtain an abdominal ultrasound. The blood sugars are not associated with symptoms. 7. Anemia Seems chronic. - check Hemoccult. - follow CBC. Anemia likely multifactorial. Follow-up stool blood Hemoccult. -Hemoglobin stable. 8. Hypertension Blood pressure well controlled. -Clonidine discontinued - continue amlodipine. DVT prophylaxis: SCDs. Add Lovenox subcutaneously. Discharge Planning Continue to monitor on the medical floor. Patient will need ID clearance prior to discharge. Omari Van MD Sep 03, 2017 14:10
[2017-09-03 16:00] VITALS: BP 161/82; PULSE 102; RESP 17; TEMP 97.1; O2SAT 96
[2017-09-03] MEDS: ENOXAPARIN SODIUM 40 MG/0.4 ML SYRINGE SQ SCH (16:59)
[2017-09-03 20:00] VITALS: BP 139/83; PULSE 92; RESP 18; TEMP 98.4; O2SAT 96
[2017-09-04 00:12] VITALS: BP 158/88; PULSE 100; RESP 18; TEMP 98.9; O2SAT 97
[2017-09-04 08:00] VITALS: BP 140/84; PULSE 101; RESP 16; TEMP 97.9; O2SAT 97
[2017-09-04] MEDS: POLYETHYLENE GLYCOL 17 GM PKG PO SCH (09:00)
[2017-09-04] MEDS: LACTIC ACID (AMMONIUM LACTATE) 12% LOTION 225 GM BTL TOPICAL SCH ×4 (09:00→20:29)
[2017-09-04] MEDS: FAMOTIDINE 20 MG TAB PO SCH ×2 (09:28→20:28)
[2017-09-04] MEDS: predniSONE 10 MG TAB PO SCH (09:28)
[2017-09-04] MEDS: DOCUSATE SODIUM 50 MG/SENNA 8.6 MG TAB PO SCH ×2 (09:29→20:28)
[2017-09-04] MEDS: oxyCODONE/ACETAMINOPHEN 5 MG/325 MG TAB PO PRN ×2 (09:29→16:25)
[2017-09-04] MEDS: GABAPENTIN 300 MG CAP PO SCH ×3 (09:29→16:25)
[2017-09-04] MEDS: SODIUM CHLORIDE 0.9% FLUSH 10 ML FLUSH IV FLUSH SCH ×2 (09:29→20:29)
[2017-09-04] MEDS: cefTRIAXone INJ 2,000 MG in SODIUM CHLORIDE 0.9% INJ 100 ML IV SCH ×2 (09:30→20:28)
[2017-09-04 12:00] VITALS: BP 115/77; PULSE 108; RESP 18; TEMP 98.1; O2SAT 93
--- NOTE | 2017-09-04 13:42 | HHI.IDPN ---
Subjective Subjective Remarks Mr. Gee is a 57-year-old -[place] male with past medical history significant for rheumatoid arthritis on prednisone. From infectious disease standpoint his past medical history significant for prior history of strep epidural abscess as well as bacteremia treated with IV antibiotics and also needing L4 partial laminectomy in 2013 as well as an abscess on the skin of his back.. His past medical history is also significant for chronic kidney disease stage III, chronic back pain, cocaine abuse and tobacco abuse who presented to the emergency department with complaints of severe back pain. Patient is an extremely poor historian and reports that he has had a prior visit to the emergency room on July 23, 2017 with similar symptoms. An MRI of the L-spine did not show any evidence of infection patient was asked to follow-up with Dr. Pineda whom he has seen in the past. On arrival, BP 125/71, HR 86, O2 sat 100% RA, Afebrile. WBC 20.8. Na 128. K+ 5.5. Creatinine 2.84, previously 2.97 on 07/23/2017. INR 1.1. UA negative for UTI. 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 S/p Vanc/ Rocephin in ER. At the time of my evaluation patient is on a regular floor. Appears to be comfortable not in significant pain involving his extremities. Patient reports tingling numbness and extreme pain in his bilateral lower extremities right more than left. Patient denies any bowel bladder incontinence. Denies any decrease in perineal sensation. Infectious diseases consulted for evaluation and management of discitis and epidural abscess. Notes reviewed patient is disappointed more fluid wasn't taken off yesterday during IR procedure he is requesting if he can be released for 8-10 hours tomorrow to attend his brothers he complains of right sided low back and buttock pain and weakness in the right leg no fever or chills no rash no N/V no diarrhea afebrile hemoglobin remaining stable s/p transfusion WBC WNL /15 s/p drainage lumbar retroperitoneal and bilateral psoas muscle abscess, with neg cultures 07/29 BCX + strep anginosus/milleri. Repeat BCX negative Repeat MRI shows persistent inflammation on the left and inflammation at L45 Lumbar CT shows 5cm fluid collection over left psoas muscle s/p IR aspiration yesterday - wound cx/gram stain pending Antibiotics IV Ceftriaxone q 12 Lines Line sites with no e.o infection. Past Medical History reviewed. Allergies: Coded Allergies: *MDRO Multi-Drug Resistant Organism (Verified Adverse Reaction, Unknown, ) MRSA (leg wound) - 10/2006 MRSA PCR screen positive - 10/2014 Objective . Vital Signs Date Time Temp Pulse Resp B/P (MAP) Pulse Ox O2 Delivery O2 Flow Rate FiO2 09/04/17 12:00 98.1 108 18 115/77 (90) 93 09/04/17 08:00 97.9 101 16 140/84 (102) 97 09/04/17 00:12 98.9 100 18 158/88 (111) 97 09/03/17 20:00 98.4 92 18 139/83 (101) 96 09/03/17 16:00 97.1 102 17 161/82 (108) 96 Imaging Last Impressions Needle Aspiration CT 08/30/17 1356 Signed Impressions: CONCLUSION: 1. Uncomplicated procedure as above. Lumbar Spine CT 08/29/17 0000 Signed Impressions: CONCLUSION: 1. There is destructive changes involving the disc space at L4-5 characteristi c for discitis. 2. There are destructive changes predominantly in the body of L5 consistent wi th osteomyelitis. There is prominent paraspinal soft tissue swelling at the L4- L5 level. 3. Mild grade 1 anterior spondylolisthesis of L4 over L5. 4. Limited visualization of the spinal canal at L4-5 due to the inflammatory c hanges. 5. Bilateral facet arthritis at multiple levels. 6. Broad-based bulging at L2-3 and L3-4. Lumbar Spine MRI 08/28/17 0000 Signed Impressions: CONCLUSION: 1. Improvement as above. Persistent fluid remains on the left. Persistent evid ence for inflammatory process remains at the L4-5 disc. 2. Less inflammatory changes in the retroperitoneum. Chest X-Ray 08/15/17 0000 Signed Impressions: Service Date/Time: Tuesday, August 15, 2017 11:34 - CONCLUSION: Mild compensated cardiomegaly Roly Reina MD FACR Lumbar Puncture Fluoroscopy 08/08/17 0000 Signed Impressions: Service Date/Time: Tuesday, August 08, 2017 15:42 - CONCLUSION: Uncomplicated fluoroscopically guided lumbar puncture. Fady Chan MD Needle Biopsy/Aspiration X-Ray 07/31/17 0000 Signed Impressions: Service Date/Time: Monday, July 31, 2017 13:29 - CONCLUSION: Uncomplicated needle biopsy of the L4/L5 disc space as above. Candelario Reina MD Abdomen/Pelvis CT 07/29/17 0000 Signed Impressions: Service Date/Time: Saturday, July 29, 2017 22:14 - CONCLUSION: 1. Significant new prevertebral soft tissue fullness and stranding centered at the L5 level. There is associated sclerosis and erosive changes in the anterior L5 vertebral body which appear unchanged from recent exams. Overall, findings are concerning for discitis and osteomyelitis. Consider repeat MRI examination for further evaluation. 2. 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 However, evaluation is significantly limited due to lack of IV contrast on this exam. This was not present on remote prior CT exam. A mycotic aneurysm cannot be entirely excluded. Contrast enhanced examination would be greatly beneficial in further evaluation. 3. Nodular appearing liver contour consistent with cirrhosis. 4. IVC filter in place. 5. Cholelithiasis. Tanner Jones MD Physical Exam GENERAL: Well developed well nourished male patient, INAD. Awake and alert. Lying in hospital bed. Becomes tearful talking about his brothers tomorrow. SKIN: Warm and dry. No obvious rash. HEAD: Atraumatic. Normocephalic. EYES: EOMI. No scleral icterus. No injection or drainage. ENT: No gross bleeding. MMM. NECK: Trachea midline. Moves neck in all directions. No rigidity noted. CARDIOVASCULAR: Regular rate and rhythm. RESPIRATORY: Nonlabored. Diminished. Clear to auscultation anteriorly. GASTROINTESTINAL: Soft, postop with surgical incision over left side of abdomen with dry and intact dressing, incision appears to be healing well. MUSCULOSKELETAL: No pedal edema NEUROLOGICAL: Awake and alert. Moves all extremities spontaneously. Decreased ROM RLE. Normal speech. PSYCHIATRIC: Calm and cooperative. IV line sites with no e.o infection Assessment & Plan Remarks Strep bacteremia, probable endocarditis Probable meningitis based on glucose and total protein (partially treated by the time LP done) Epidural abscess Discitis. - Repeat MRI shows persistent fluid remains on the left. Persistent evidence for inflammatory process remains at the L4-5 disc and Less inflammatory changes in the retroperitoneum. Bilateral psoas fluid collection s/p I&D 08/14 with 250ml yellowish purulent material removed. Fever postop, resolved. -repeat MRI shows persistent fluid remains on the left. Persistent evidence for inflammatory process remains at the L4-5 disc and less inflammatory changes in the retroperitoneum.improvement in the retroperitoneum with less inflammatory changes. Per Dr. Reina, appears multiloculated. 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 Immune compromised host on steroids Acute on chronic kidney disease, resolved Hyperkalemia, resolved Hep B reactive Anemia, hgb 6.9 s/p transfusion hgb 8.5 Recs Continue on IV Ceftriaxone q12h Continue to monitor clinically Cultures negative. Gram stain no organisms. Not safe discharge as did drugs in hospital. Stop date cannot be provided. ID will periodically follow to determine need for repeat imaging and stop date for antibiotics. reconsult to assess loculated fluid and timing of surgery for the pain symptoms in back and legs. justo PA for Dr.Kuhn justo Molina about neurosurgery reconsult with I will be OOT from 09/05/2017 to 09/17/2017. I will be back in town 09/18/2017. other ID MDs to cover for me call call center. Latricia Goldstein MD Sep 04, 2017 13:42
--- NOTE | 2017-09-04 15:20 | HHI.PR ---
Subjective Remarks Back pain controlled. Denies rash, diarrhea Denies fevers or chills Objective Vitals Vital Signs Date Time Temp Pulse Resp B/P (MAP) Pulse Ox O2 Delivery O2 Flow Rate FiO2 09/04/17 12:00 98.1 108 18 115/77 (90) 93 09/04/17 08:00 97.9 101 16 140/84 (102) 97 09/04/17 00:12 98.9 100 18 158/88 (111) 97 09/03/17 20:00 98.4 92 18 139/83 (101) 96 09/03/17 16:00 97.1 102 17 161/82 (108) 96 I/O 09/03/17 09/03/17 09/03/17 09/04/17 09/04/17 09/04/17 07:00 15:00 23:00 07:00 15:00 23:00 Intake Total 580 ml 1250 ml 760 ml Output Total 900 ml 1850 ml 1800 ml Balance -320 ml -600 ml -1040 ml Intake Oral 480 ml 1250 ml 760 ml IV Total 100 ml Output Urine Total 900 ml 1850 ml 1800 ml # Bowel Movements 1 0 2 Result Diagram: 09/01/17 0452 09/01/17 0452 Imaging Last Impressions Needle Aspiration CT 08/30/17 1356 Signed Impressions: CONCLUSION: 1. Uncomplicated procedure as above. Lumbar Spine CT 08/29/17 0000 Signed Impressions: CONCLUSION: 1. There is destructive changes involving the disc space at L4-5 characteristi c for discitis. 2. There are destructive changes predominantly in the body of L5 consistent wi th osteomyelitis. There is prominent paraspinal soft tissue swelling at the L4- L5 level. 3. Mild grade 1 anterior spondylolisthesis of L4 over L5. 4. Limited visualization of the spinal canal at L4-5 due to the inflammatory c hanges. 5. Bilateral facet arthritis at multiple levels. 6. Broad-based bulging at L2-3 and L3-4. Lumbar Spine MRI 08/28/17 0000 Signed Impressions: CONCLUSION: 1. Improvement as above. Persistent fluid remains on the left. Persistent evid ence for inflammatory process remains at the L4-5 disc. 2. Less inflammatory changes in the retroperitoneum. Chest X-Ray 08/15/17 0000 Signed Impressions: Service Date/Time: Tuesday, August 15, 2017 11:34 - CONCLUSION: Mild compensated cardiomegaly Roly Reina MD FACR Lumbar Puncture Fluoroscopy 08/08/17 0000 Signed Impressions: Service Date/Time: Tuesday, August 08, 2017 15:42 - CONCLUSION: Uncomplicated fluoroscopically guided lumbar puncture. Fady Chan MD Needle Biopsy/Aspiration X-Ray 07/31/17 0000 Signed Impressions: Service Date/Time: Monday, July 31, 2017 13:29 - CONCLUSION: Uncomplicated needle biopsy of the L4/L5 disc space as above. Candelario Reina MD Abdomen/Pelvis CT 07/29/17 0000 Signed Impressions: Service Date/Time: Saturday, July 29, 2017 22:14 - CONCLUSION: 1. Significant new prevertebral soft tissue fullness and stranding centered at the L5 level. There is associated sclerosis and erosive changes in the anterior L5 vertebral body which appear unchanged from recent exams. Overall, findings are concerning for discitis and osteomyelitis. Consider repeat MRI examination for further evaluation. 2. 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 However, evaluation is significantly limited due to lack of IV contrast on this exam. This was not present on remote prior CT exam. A mycotic aneurysm cannot be entirely excluded. Contrast enhanced examination would be greatly beneficial in further evaluation. 3. Nodular appearing liver contour consistent with cirrhosis. 4. IVC filter in place. 5. Cholelithiasis. Tanner Jones MD Objective Remarks General: No acute distress. Heart: Regular rate and rhythm. No murmur. Lungs: Clear to auscultation bilaterally. No wheezes, rales, or rhonchi. Breathing is nonlabored. Abdomen: Soft, nontender, nondistended. Positive bowel sounds. Extremities: No lower extremity edema. Psych: Alert, oriented, answers questions appropriately. Neuro: No focal deficits noted. Back: Tender to palpation around the sacrum. Psych: Slightly flattened affect. 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 Osteomyelitis of the L5 vertebra/bilateral psoas muscle abscess/ bacteremia Status post CT-guided removal of fluid for culture as well as disc biopsy on 07/31. Appreciate neurosurgery, vascular surgery, infectious disease recommendations. Status post drainage of abscess on 08/14/17. Wound culture is negative. Mycobacterial and fungal cultures are pending. Bacteremia with Strep Anginosis. - Continue antibiotics per ID. - follow up with neurosurgery. Lucas removed 08/26. - 08/28 as per neurosurgery recommendations the patient will need at least 6 weeks of IV antibiotics before procedure. Continue IV Rocephin. Follow-up repeat MRI. - 08/29 repeat MRI shows a persistence of fluid on the left. Persistent evidence of inflammatory process remains at the L4-5 disc. Discussed the case with Dr. Goldstein from ID who relayed to Dr. Sanchez will let her know if I recommend aspiration or any other procedures needed. We will start the patient on gabapentin for neuropathic pain at the lower back. - The patient status post needle aspiration CT-guided of spinal fluid collection. As per report the patient had 6 cc of serosanguineous, purulent fluid removed. Follow-up cultures. Antibiotics per ID. Continue IV Rocephin. - 09/01 the patient still complains of radicular pain and pain in the lower back. I will increase the dose of gabapentin from 300 mg p.o. 3 times daily to 600 mg p.o. 3 times daily. Continue pain control management as above. - 09/02 pain is better controlled. Continue pain control with gabapentin 600 mg p.o. 3 times a day, oxycodone as needed. -09/04 discussed the case with Dr. Goldstein from infectious disease. Recommend discontinuation of IV Rocephin every 12 hours. As per ID he stopped that cannot be provided. Patient is also not a safe discharge as he did drugs in the hospital. Will consult Dr. Felipe from neurosurgery to assess loculated fluid and timing of surgery for pain symptoms in back and legs. 2. Encephalopathy Likely toxic secondary to drug abuse. S/P lumbar puncture. Evaluated by psychiatry, patient is capable of making decisions. - resolved. - Avoid overly sedating medications. 3. Cocaine abuse Urine toxicology positive for cocaine. There was concern that the patient may have used cocaine while in the hospital as his urine drug screen was positive 8 days after admission. - cessation instruction. -Visitors allowed again. 4. Right iliac artery aneurysm Patient noted to have a 2.9 cm aneurysm of the right internal iliac artery, possibly mycotic aneurysm. This was an incidental finding. He denies IV drug abuse. Appreciate vascular surgery recommendations. - No surgery planned at this time. 5. Chronic kidney disease stage II with acute kidney injury. Creatinine seems stable. - monitor and avoid nephrotoxins. 6. Hypoglycemia Episodes of low blood sugar into the 60s. Blood sugars more stable. - ADAT. Continue Ensure. - check an insulin level. Obtain abdominal US if elevated. 6/5 insulin level elevated at 72.2. Peptide, proinsulin, insulin antibody and obtain an abdominal ultrasound. The blood sugars are not associated with symptoms. These tests are still pending. 7. Anemia Seems chronic. - check Hemoccult. - follow CBC. Anemia likely multifactorial. Follow-up stool blood Hemoccult. -Hemoglobin stable. 8. Hypertension Blood pressure well controlled. -Clonidine discontinued - continue amlodipine. DVT prophylaxis: SCDs. Add Lovenox subcutaneously. Discharge Planning Continue to monitor on the medical floor. Patient will need ID clearance prior to discharge. Omari Van MD Sep 04, 2017 15:20
[2017-09-04 16:00] VITALS: BP 125/85; PULSE 105; RESP 18; TEMP 98.5; O2SAT 99
[2017-09-04] MEDS: ENOXAPARIN SODIUM 40 MG/0.4 ML SYRINGE SQ SCH (16:24)
[2017-09-04 16:28] LABS: INTACT PRO INSULIN 37 pmol/L (3.6-22)
[2017-09-04 20:20] VITALS: BP 137/84; PULSE 101; RESP 18; TEMP 98.8; O2SAT 96
[2017-09-05 00:23] VITALS: BP 145/86; PULSE 93; RESP 18; TEMP 97.9; O2SAT 97
[2017-09-05] MEDS: oxyCODONE/ACETAMINOPHEN 5 MG/325 MG TAB PO PRN ×4 (01:59→17:53)
[2017-09-05 07:15] LABS: AUTOMATED NEUTROPHIL # 5.6 TH/MM3 (1.8-7.7); BASOPHIL # 0.1 TH/MM3 (0-0.2); BASOPHIL % 0.9 % (0.0-2.0); EOSINOPHIL # 0.3 TH/MM3 (0-0.4); EOSINOPHIL % 3.7 % (0.0-4.0); HEMATOCRIT 29.3 % (39.0-51.0); HEMOGLOBIN 9.3 GM/DL (13.0-17.0); LYMPH % 15.6 % (9.0-44.0); LYMPHOCYTE # 1.2 TH/MM3 (1.0-4.8); MEAN CELL VOLUME 90.5 FL (80.0-100.0); MEAN CORPUSCULAR HEMOGLOBIN 28.6 PG (27.0-34.0); MEAN CORPUSCULAR HGB CONC 31.6 % (32.0-36.0); MEAN PLATELET VOLUME 7.7 FL (7.0-11.0); MONO % 9.6 % (0.0-8.0); MONOCYTE # 0.8 TH/MM3 (0-0.9); NEUT % 70.2 % (16.0-70.0); PLATELET COUNT 157 TH/MM3 (150-450); RED BLOOD COUNT 3.24 MIL/MM3 (4.50-5.90)
[2017-09-05 07:39] LABS: ALBUMIN 2.1 GM/DL (3.4-5.0); ALT (GPT) 26 U/L (12-78); AST (GOT) 40 U/L (15-37); BICARBONATE 29.5 MEQ/L (21.0-32.0); BLOOD UREA NITROGEN 37 MG/DL (7-18); CALCIUM 8.7 MG/DL (8.5-10.1); CHLORIDE 104 MEQ/L (98-107); CREATININE 1.51 MG/DL (0.60-1.30); GLOMERULAR FILTRATION RATE 58 ML/MIN (>89); GLUCOSE,RANDOM 63 MG/DL (74-106); SODIUM (NA) 138 MEQ/L (136-145)
[2017-09-05 07:41] LABS: ALKALINE PHOSPHATASE 251 U/L (45-117); TOTAL BILIRUBIN ADULT 0.3 MG/DL (0.2-1.0); TOTAL PROTEIN 8.7 GM/DL (6.4-8.2)
[2017-09-05 08:00] VITALS: BP 153/93; PULSE 94; RESP 17; TEMP 97.9; O2SAT 97
[2017-09-05] MEDS: predniSONE 10 MG TAB PO SCH (08:10)
[2017-09-05] MEDS: DOCUSATE SODIUM 50 MG/SENNA 8.6 MG TAB PO SCH ×2 (08:10→20:12)
[2017-09-05] MEDS: GABAPENTIN 300 MG CAP PO SCH ×3 (08:10→17:53)
[2017-09-05] MEDS: FAMOTIDINE 20 MG TAB PO SCH ×2 (08:10→20:12)
[2017-09-05] MEDS: SODIUM CHLORIDE 0.9% FLUSH 10 ML FLUSH IV FLUSH SCH ×2 (08:10→20:12)
[2017-09-05] MEDS: POLYETHYLENE GLYCOL 17 GM PKG PO SCH (08:10)
[2017-09-05] MEDS: LACTIC ACID (AMMONIUM LACTATE) 12% LOTION 225 GM BTL TOPICAL SCH ×4 (08:13→20:12)
[2017-09-05 12:00] VITALS: BP 138/83; PULSE 99; RESP 18; TEMP 98.1; O2SAT 96
[2017-09-05] MEDS: cefTRIAXone INJ 2,000 MG in SODIUM CHLORIDE 0.9% INJ 100 ML IV SCH ×2 (12:05→20:13)
[2017-09-05] MEDS: SODIUM CHLORIDE 0.9% FLUSH 10 ML FLUSH IV FLUSH PRN (12:06)
[2017-09-05] MEDS: CYCLOBENZAPRINE HCL 10 MG TAB PO PRN (12:35)
--- NOTE | 2017-09-05 13:25 | HHI.PR ---
Subjective Remarks No new complaints at this time Discussed with RN and patient and case management Continue antibiotics per infectious disease Has not been cleared for discharge Objective Vitals Vital Signs Date Time Temp Pulse Resp B/P (MAP) Pulse Ox O2 Delivery O2 Flow Rate FiO2 09/05/17 12:00 98.1 99 18 138/83 (101) 96 09/05/17 08:11 16 09/05/17 08:00 97.9 94 17 153/93 (113) 97 09/05/17 00:23 97.9 93 18 145/86 (105) 97 09/04/17 20:20 98.8 101 18 137/84 (101) 96 09/04/17 16:00 98.5 105 18 125/85 (98) 99 I/O 09/04/17 09/04/17 09/04/17 09/05/17 09/05/17 09/05/17 07:00 15:00 23:00 07:00 15:00 23:00 Intake Total 760 ml 100 ml 1170 ml 880 ml Output Total 1800 ml 900 ml 1800 ml Balance -1040 ml 100 ml 270 ml -920 ml Intake Oral 760 ml 1170 ml 780 ml IV Total 100 ml 100 ml Output Urine Total 1800 ml 900 ml 1800 ml # Bowel Movements 2 1 1 Result Diagram: 09/05/17 0555 09/05/17 0555 Other Results Laboratory Tests Test 09/05/17 05:55 White Blood Count 8.0 TH/MM3 Red Blood Count 3.24 MIL/MM3 Hemoglobin 9.3 GM/DL Hematocrit 29.3 % Mean Corpuscular Volume 90.5 FL Mean Corpuscular Hemoglobin 28.6 PG Mean Corpuscular Hemoglobin Concent 31.6 % Red Cell Distribution Width 17.0 % Platelet Count 157 TH/MM3 Mean Platelet Volume 7.7 FL Neutrophils (%) (Auto) 70.2 % Lymphocytes (%) (Auto) 15.6 % Monocytes (%) (Auto) 9.6 % Eosinophils (%) (Auto) 3.7 % Basophils (%) (Auto) 0.9 % Neutrophils # (Auto) 5.6 TH/MM3 Lymphocytes # (Auto) 1.2 TH/MM3 Monocytes # (Auto) 0.8 TH/MM3 Eosinophils # (Auto) 0.3 TH/MM3 Basophils # (Auto) 0.1 TH/MM3 CBC Comment DIFF FINAL Differential Comment Blood Urea Nitrogen 37 MG/DL Creatinine 1.51 MG/DL Random Glucose 63 MG/DL Total Protein 8.7 GM/DL Albumin 2.1 GM/DL Calcium Level 8.7 MG/DL Alkaline Phosphatase 251 U/L Aspartate Amino Transf (AST/SGOT) 40 U/L Alanine Aminotransferase (ALT/SGPT) 26 U/L Total Bilirubin 0.3 MG/DL Sodium Level 138 MEQ/L Potassium Level 5.4 MEQ/L Chloride Level 104 MEQ/L Carbon Dioxide Level 29.5 MEQ/L Anion Gap 5 MEQ/L Estimat Glomerular Filtration Rate 58 ML/MIN Imaging Last Impressions Needle Aspiration CT 08/30/17 1356 Signed Impressions: CONCLUSION: 1. Uncomplicated procedure as above. Lumbar Spine CT 08/29/17 0000 Signed Impressions: CONCLUSION: 1. There is destructive changes involving the disc space at L4-5 characteristi c for discitis. 2. There are destructive changes predominantly in the body of L5 consistent wi th osteomyelitis. There is prominent paraspinal soft tissue swelling at the L4- L5 level. 3. Mild grade 1 anterior spondylolisthesis of L4 over L5. 4. Limited visualization of the spinal canal at L4-5 due to the inflammatory c hanges. 5. Bilateral facet arthritis at multiple levels. 6. Broad-based bulging at L2-3 and L3-4. Lumbar Spine MRI 08/28/17 0000 Signed Impressions: CONCLUSION: 1. Improvement as above. Persistent fluid remains on the left. Persistent evid ence for inflammatory process remains at the L4-5 disc. 2. Less inflammatory changes in the retroperitoneum. Chest X-Ray 08/15/17 0000 Signed Impressions: Service Date/Time: Tuesday, August 15, 2017 11:34 - CONCLUSION: Mild compensated cardiomegaly Roly Reina MD FACR Lumbar Puncture Fluoroscopy 08/08/17 0000 Signed Impressions: Service Date/Time: Tuesday, August 08, 2017 15:42 - CONCLUSION: Uncomplicated fluoroscopically guided lumbar puncture. Fady Chan MD Needle Biopsy/Aspiration X-Ray 07/31/17 0000 Signed Impressions: Service Date/Time: Monday, July 31, 2017 13:29 - CONCLUSION: Uncomplicated needle biopsy of the L4/L5 disc space as above. Candelario Reina MD Abdomen/Pelvis CT 07/29/17 0000 Signed Impressions: Service Date/Time: Saturday, July 29, 2017 22:14 - CONCLUSION: 1. Significant new prevertebral soft tissue fullness and stranding centered at the L5 level. There is associated sclerosis and erosive changes in the anterior L5 vertebral body which appear unchanged from recent exams. Overall, findings are concerning for discitis and osteomyelitis. Consider repeat MRI examination for further evaluation. 2. 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 However, evaluation is significantly limited due to lack of IV contrast on this exam. This was not present on remote prior CT exam. A mycotic aneurysm cannot be entirely excluded. Contrast enhanced examination would be greatly beneficial in further evaluation. 3. Nodular appearing liver contour consistent with cirrhosis. 4. IVC filter in place. 5. Cholelithiasis. Tanner Jones MD Objective Remarks GENERAL: Awake alert and oriented 3 talkative and cooperative-- tends to mumble when he speaks SKIN: Warm and dry. HEAD: Atraumatic. Normocephalic. EYES: Pupils equal and round. No scleral icterus. No injection or drainage. Extraocular muscles intact ENT: No nasal bleeding or discharge. Mucous membranes pink and moist. Tongue is midline NECK: Trachea midline. No JVD. Supple CARDIOVASCULAR: Regular rate and rhythm. S1-S2 no S3 or S4 RESPIRATORY: No accessory muscle use. Clear to auscultation. Breath sounds equal bilaterally. GASTROINTESTINAL: Abdomen soft, non-tender, nondistended. Hepatic and splenic margins not palpable. MUSCULOSKELETAL: Extremities without clubbing, cyanosis, or edema. No obvious deformities. NEUROLOGICAL: Awake and alert. No obvious cranial nerve deficits. Motor grossly within normal limits. 4 out of 5 muscle strength in the arms and legs. Normal speech. PSYCHIATRIC: Appropriate mood and affect; insight and judgment normal. Procedures 08/14/17 lateral oblique approach for drainage of lumbar retroperitoneal and bilateral psoas muscle abscess Medications and IVs Current Medications Sodium Chloride (NS Flush) 2 ml UNSCH PRN IV FLUSH FLUSH AFTER USING IV ACCESS ; Start 07/29/17 at 20:15; Stop 07/31/17 at 22:18; Status DC Morphine Sulfate (Morphine Inj) 4 mg ONCE ONCE IV PUSH Last administered on at 20:42; Start 07/29/17 at 20:15; Stop 07/29/17 at 20:16; Status DC Dexamethasone Sodium Phosphate (Decadron Inj) 8 mg ONCE ONCE IV PUSH Last administered on 07/29/17at 20:42; Start 07/29/17 at 20:15; Stop 07/29/17 at 20:16 ; Status DC Sodium Chloride 1,000 ml @ 999 mls/hr BOLUS ONCE IV Last administered on 07/29at 23:26; Start 07/29/17 at 21:45; Stop 07/29/17 at 22:45; Status DC Ceftriaxone Sodium 2000 mg/ Sodium Chloride 100 ml @ 200 mls/hr ONCE ONCE IV Last administered on 07/29/17at 23:26; Start 07/29/17 at 23:00; Stop 07/29/17 at 23:29; Status DC Vancomycin HCl 1000 mg/Sodium Chloride 250 ml @ 250 mls/hr ONCE ONCE IV ; Start 07/29/17 at 23:00; Stop 07/29/17 at 23:59; Status Cancel Pharmacy Profile Note 0 ml @ 0 mls/hr UNSCH OTHER ; Start 07/29/17 at 23:15; Stop 08/06/17 at 14:40; Status DC Cefepime HCl 1000 mg/Sodium Chloride 100 ml @ 200 mls/hr Q12H IV Last administered on 08/01/17at 21:37; Start 07/30/17 at 09:00; Stop 08/02/17 at 06:53; Status DC Sodium Chloride 1,000 ml @ 70 mls/hr [id number] IV Last administered on at 02:34; Start 07/29/17 at 23:01; Stop 08/21/17 at 13:04; Status DC Sodium Chloride (NS Flush) 2 ml UNSCH PRN IV FLUSH FLUSH AFTER USING IV ACCESS Last administered on 09/05/17at 12:06; Start 07/29/17 at 23:15 Sodium Chloride (NS Flush) 2 ml BID IV FLUSH Last administered on 09/05/17at 08: 10; Start 07/30/17 at 09:00 Ondansetron HCl (Zofran Inj) 4 mg Q6H PRN IVP NAUSEA OR VOMITING; Start at 23:15 Acetaminophen (Tylenol) 650 mg Q6H PRN PO FEVER/PAIN SCALE 1 TO 2 Last administered on 08/15/17at 07:38; Start 07/29/17 at 23:15 Morphine Sulfate (Morphine Inj) 2 mg Q3H PRN IV PUSH Pain 6-10; Start 07/29/17 at 23:15; Stop 07/30/17 at 20:43; Status DC Oxycodone HCl (Roxicodone) 5 mg Q4H PRN PO PAIN SCALE 3 TO 5 Last administered on 08/01/17at 05:48; Start 07/29/17 at 23:15; Stop 08/01/17 at 08:56; Status DC Senna/Docusate Sodium (Emilie-Colace) 1 tab BID PO Last administered on 09/05/17at 08:10; Start 07/30/17 at 09:00 Magnesium Hydroxide (Milk Of Magnesia Liq) 30 ml Q12H PRN PO Mild constipation ; Start 07/29/17 at 23:15 Sennosides (Senokot) 17.2 mg Q12H PRN PO Moderate constipation; Start 07/29/17 at 23:15 Bisacodyl (Dulcolax Supp) 10 mg DAILY PRN RECTAL SEVERE CONSITIPATION/ IF NPO ; Start 07/29/17 at 23:15 Lactulose (Lactulose Liq) 30 ml DAILY PRN PO SEVERE CONSITIPATION/ IF PO Last administered on 08/19/17at 13:55; Start 07/29/17 at 23:15 Lorazepam (Ativan Inj) 1 mg Q2H PRN IV PUSH AGITATION/WITHDRAWAL Last administered on 08/14/17at 19:10; Start 07/29/17 at 23:15; Stop 08/24/17 at 13:35 ; Status DC Vancomycin/Sodium Chloride 200 ml @ 200 mls/hr ONCE ONCE IV Last administered on 07/29/17at 23:55; Start 07/30/17 at 00:00; Stop 07/30/17 at 00:59 ; Status DC Vancomycin HCl 1000 mg/Sodium Chloride 250 ml @ 250 mls/hr ONCE ONCE IV Last administered on 07/30/17at 12:08; Start 07/30/17 at 12:00; Stop 07/30/17 at 12:59 ; Status DC Morphine Sulfate (Morphine Inj) 2 mg Q3H PRN IV PUSH Pain 6-10 Last administered on 08/01/17at 01:54; Start 07/30/17 at 20:45; Stop 08/01/17 at 08:56; Status DC Vancomycin HCl 1500 mg/Sodium Chloride 515 ml @ 257.5 mls/ hr ONCE ONCE IV Last administered on 07/31/17at 18:19; Start 07/31/17 at 18:00; Stop 07/31/17 at 19: 59; Status DC Fentanyl Citrate (fentaNYL INJ) 100 mcg STK-MED ONCE .ROUTE Last administered on 07/31/17at 13:09; Start 07/31/17 at 13:09; Stop 07/31/17 at 13:10; Status DC Midazolam HCl (Versed Inj) 2 mg STK-MED ONCE .ROUTE Last administered on at 13:09; Start 07/31/17 at 13:09; Stop 07/31/17 at 13:10; Status DC Sodium Bicarbonate 50 ml @ As Directed STK-MED ONCE .ROUTE Last administered on 07/31/17at 13:33; Start 07/31/17 at 13:33; Stop 07/31/17 at 13:34; Status DC Oxycodone HCl (Roxicodone) 5 mg ONCE ONCE PO Last administered on 07/31/17at 22: 40; Start 07/31/17 at 22:15; Stop 07/31/17 at 22:18; Status DC Oxycodone/ Acetaminophen (Percocet 10-325 Mg) 1 tab Q4H PRN PO PAIN SCALE 4 TO 10 Last administered on 08/06/17at 05:36; Start 08/01/17 at 09:00; Stop 08/09/17 at 09:39; Status DC Hydromorphone HCl (Dilaudid Pf Inj) 0.5 mg Q4H PRN IV PUSH BREAKTHROUGH PAIN Last administered on 08/14/17at 13:21; Start 08/01/17 at 09:00; Stop 08/14/17 at 19:29; Status DC Ceftriaxone Sodium 2000 mg/ Sodium Chloride 100 ml @ 200 mls/hr Q12H IV ; Start 08/02/17 at 08:00; Stop 08/02/17 at 11:59; Status DC Ceftriaxone Sodium 2000 mg/ Sodium Chloride 100 ml @ 200 mls/hr Q12H IV Last administered on 08/02/17at 23:39; Start 08/02/17 at 12:00; Stop 08/03/17 at 16:10; Status DC Vancomycin HCl 2000 mg/Sodium Chloride 520 ml @ 250 mls/hr ONCE ONCE IV Last administered on 08/02/17at 14:50; Start 08/02/17 at 14:00; Stop 08/02/17 at 16:04; Status DC Calcium Carbonate (Tums Chew) 500 mg Q2H PRN CHEW indigestion Last administered on 08/05/17at 13:49; Start 08/02/17 at 19:30 Clonidine (Catapres) 0.1 mg ONCE ONCE PO Last administered on 08/03/17at 05:07; Start 08/03/17 at 04:45; Stop 08/03/17 at 04:47; Status DC Ceftriaxone Sodium 2000 mg/ Sodium Chloride 100 ml @ 200 mls/hr Q12H IV Last administered on 09/05/17at 12:05; Start 08/03/17 at 17:00 Vancomycin HCl 1750 mg/Sodium Chloride 517.5 ml @ 257.5 mls/ hr ONCE ONCE IV Last administered on 08/04/17at 14:07; Start 08/04/17 at 14:00; Stop 08/04/17 at 16: 00; Status DC Clonidine (Catapres) 0.1 mg Q6H PRN PO SYS BP GREATER THAN 165 MMHG Last administered on 08/06/17at 23:44; Start 08/04/17 at 15:30 Lactic Acid (Lac-Hydrin 12% Lotion) 1 applic BID TOPICAL Last administered on at 08:13; Start 08/04/17 at 21:00 Clonidine (Catapres) 0.1 mg ONCE ONCE PO Last administered on 08/05/17at 05:10; Start 08/05/17 at 04:45; Stop 08/05/17 at 04:46; Status DC Famotidine (Pepcid) 20 mg BID PO Last administered on 09/05/17at 08:10; Start 08/05/17 at 21:00 Clonidine (Catapres) 0.1 mg ONCE ONCE PO Last administered on 08/06/17at 06:45; Start 08/06/17 at 06:45; Stop 08/06/17 at 06:46; Status DC Vancomycin HCl 1750 mg/Sodium Chloride 517.5 ml @ 257.5 mls/ hr ONCE ONCE IV Last administered on 08/06/17at 14:05; Start 08/06/17 at 13:00; Stop 08/06/17 at 14: 40; Status DC Hydralazine HCl (Apresoline Inj) 10 mg Q4H PRN IV PUSH SBP > 165; Start at 10:00; Stop 08/06/17 at 11:01; Status DC Amlodipine Besylate (Norvasc) 10 mg DAILY PO Last administered on 09/05/17at 08: 10; Start 08/06/17 at 11:00 Enalaprilat (Vasotec Inj) 2.5 mg Q6H PRN IV PUSH SBP > 165 Last administered on 09/01/17at 08:10; Start 08/06/17 at 11:00 Oxycodone/ Acetaminophen (Percocet 5-325 Mg) 1 tab Q6H PRN PO PAIN 4-10 Last administered on 08/09/17at 08:14; Start 08/08/17 at 08:45; Stop 08/09/17 at 09:28 ; Status DC Gadodiamide (Omniscan Pf Inj) 20 ml STK-MED ONCE IVCONTRAST Last administered on 08/08/17at 14:30; Start 08/08/17 at 14:30; Stop 08/08/17 at 14:31; Status DC Oxycodone/ Acetaminophen (Percocet 5-325 Mg) 1 tab Q4HR PRN PO PAIN 4-10 Last administered on 09/05/17at 12:05; Start 08/09/17 at 10:00 Zolpidem Tartrate (Ambien) 5 mg ONCE ONCE PO Last administered on 08/13/17at 01 :45; Start 08/13/17 at 01:45; Stop 08/13/17 at 01:46; Status DC Acetaminophen 100 ml @ As Directed STK-MED ONCE IV ; Start 08/14/17 at 12:50; Stop 08/14/17 at 12:51; Status DC Artificial Tears (Lacrilube Opht Oint) 3.5 applic STK-MED ONCE .ROUTE ; Start at 12:50; Stop 08/14/17 at 12:51; Status DC Artificial Tears (Lacrilube Opht Oint) 3.5 applic STK-MED ONCE .ROUTE ; Start at 13:52; Stop 08/14/17 at 13:53; Status DC Lidocaine/ Epinephrine (Xylocaine-Epi 1%-1:100,000 Inj) 20 ml STK-MED ONCE .ROUTE ; Start 08/14/17 at 14:41; Stop 08/14/17 at 14:42; Status DC Thrombin (Thrombin Top Soln) 10,000 units STK-MED ONCE .ROUTE Last administered on 08/14/17at 17:53; Start 08/14/17 at 14:41; Stop 08/14/17 at 14:42 ; Status DC Gelatin (Gelfoam 100 Top) 1 foam STK-MED ONCE .ROUTE Last administered on at 17:53; Start 08/14/17 at 14:41; Stop 08/14/17 at 14:42; Status DC Gentamicin Sulfate (Gentamicin Inj) 240 mg STK-MED ONCE .ROUTE ; Start 08/14/17 at 14:42; Stop 08/14/17 at 14:43; Status DC Ceftriaxone Sodium (Rocephin Inj) 1,000 mg STK-MED ONCE .ROUTE Last administered on 08/14/17at 17:20; Start 08/14/17 at 17:00; Stop 08/14/17 at 17:01 ; Status DC Ceftriaxone Sodium (Rocephin Inj) 1,000 mg STK-MED ONCE .ROUTE Last administered on 08/14/17at 17:20; Start 08/14/17 at 17:01; Stop 08/14/17 at 17:02 ; Status DC Meperidine HCl (*DEMEROL INJ PERIprocedural ONLY) 25 mg STK-MED ONCE .ROUTE Last administered on 08/14/17at 18:49; Start 08/14/17 at 18:49; Stop 08/14/17 at 18:50; Status DC Hydromorphone HCl (*DILAUDID PF INJ PERIprocedure ONLY) 0.5 mg STK-MED ONCE .ROUTE Last administered on 08/14/17at 18:49; Start 08/14/17 at 18:49; Stop at 18:50; Status DC Midazolam HCl (Versed Inj) 2 mg STK-MED ONCE .ROUTE ; Start 08/14/17 at 18:53; Stop 08/14/17 at 18:54; Status DC Fentanyl Citrate (fentaNYL INJ) 200 mcg STK-MED ONCE .ROUTE ; Start 08/14/17 at 18:53; Stop 08/14/17 at 18:54; Status DC Morphine Sulfate (*morphine INJ PERIprocedure ONLY) 10 mg STK-MED ONCE .ROUTE Last administered on 08/14/17at 19:11; Start 08/14/17 at 19:11; Stop 08/14/17 at 19:12; Status DC Hydromorphone HCl (Dilaudid Pf Inj) 1 mg Q4H PRN IV PUSH BREAKTHROUGH PAIN Last administered on 08/17/17at 07:46; Start 08/14/17 at 21:00; Stop 08/24/17 at 13:33; Status DC Hydromorphone HCl (Dilaudid Pf Inj) 0.5 mg Q3H PRN IV PUSH Pain 3-5; if unable to take PO; Start 08/14/17 at 19:30; Stop 08/22/17 at 15:54; Status DC Naloxone HCl (Narcan Inj) 0.4 mg UNSCH PRN IV PUSH SEE LABEL COMMENTS; Start at 19:30 Miscellaneous Information ([employer] [facility] [employer] Nursing Information) ALL NURSING DEPARTME... UNSCH PRN .XX SEE LABEL COMMENTS; Start 08/14/17 at 20:00; Stop 08/15/17 at 19: 59; Status DC Albuterol Sulfate (Proair Hfa Inh) 2 puff Q4H PRN INH SHORTNESS OF BREATH; Start 08/14/17 at 20:30 Amlodipine Besylate (Norvasc) 10 mg DAILY PO ; Start 08/15/17 at 09:00; Stop at 14:31; Status DC Clonidine (Catapres) 0.1 mg DAILY PO Last administered on 08/24/17at 07:58; Start 08/15/17 at 09:00; Stop 08/24/17 at 13:35; Status DC Cyclobenzaprine HCl (Flexeril) 5 mg TID PRN PO SPASM Last administered on at 12:35; Start 08/14/17 at 20:30 Lactic Acid (Lac-Hydrin 12% Lotion) 1 applic BID TOPICAL Last administered on 20:29; Start 08/17/17 at 11:00 Polyethylene Glycol (Miralax) 17 gm DAILY PO Last administered on 09/05/17 08: 10; Start 08/18/17 at 09:00 Prednisone (Deltasone) 10 mg DAILY PO Last administered on 09/05/17 08:10; Start 08/21/17 at 09:00 Magnesium Citrate (Citroma Liq) 300 ml ONCE ONCE PO Last administered on at 15:15; Start 08/21/17 at 13:15; Stop 08/21/17 at 13:16; Status DC Dextrose/Sodium Chloride 1,000 ml @ 75 mls/hr [id number] IV Last administered on 08/22/17at 17:07; Start 08/22/17 at 15:45; Stop 08/23/17 at 05:04; Status DC Dextrose/Sodium Chloride 1,000 ml @ 100 mls/hr Q10H IV Last administered on at 12:48; Start 08/24/17 at 14:00; Stop 08/25/17 at 09:59; Status DC Dextrose/Sodium Chloride 1,000 ml @ 100 mls/hr Q10H IV Last administered on at 23:14; Start 08/25/17 at 11:45; Stop 08/26/17 at 16:28; Status DC Sodium Chloride 250 ml @ 15 mls/hr ONCE ONCE IV Last administered on at 10:17; Start 08/28/17 at 06:15; Stop 08/28/17 at 22:54; Status DC Gadodiamide (Omniscan Pf Inj) 20 ml STK-MED ONCE IVCONTRAST Last administered on 08/28/17at 18:44; Start 08/28/17 at 18:42; Stop 08/28/17 at 18:43; Status DC Gabapentin (Neurontin) 300 mg TID PO Last administered on 09/01/17 08:10; Start 08/29/17 at 13:00; Stop 09/01/17 at 12:15; Status DC Iohexol (Omnipaque 350 Inj) 94 ml STK-MED ONCE IVCONTRAST Last administered on 08/29/17at 22:23; Start 08/29/17 at 22:23; Stop 08/29/17 at 22:24; Status DC Midazolam HCl (Versed Inj) 5 mg STK-MED ONCE .ROUTE Last administered on at 15:16; Start 08/30/17 at 15:16; Stop 08/30/17 at 15:17; Status DC Fentanyl Citrate (fentaNYL INJ) 250 mcg STK-MED ONCE .ROUTE Last administered on 08/30/17at 15:16; Start 08/30/17 at 15:16; Stop 08/30/17 at 15:17; Status DC Gabapentin (Neurontin) 600 mg TID PO Last administered on 09/05/17at 12:05; Start 09/01/17 at 13:00 Enoxaparin Sodium (Lovenox Inj) 40 mg Q24H SQ Last administered on 09/04/17at 16: 24; Start 09/02/17 at 16:00 A/P Problem List: (1) Osteomyelitis ICD Code: M86.9 - Osteomyelitis, unspecified Status: Acute (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 Osteomyelitis of the L5 vertebra/bilateral psoas muscle abscess/ bacteremia Status post CT-guided removal of fluid for culture as well as disc biopsy on 07/31. Appreciate neurosurgery, vascular surgery, infectious disease recommendations. Status post drainage of abscess on 08/14/17. Wound culture is negative. Mycobacterial and fungal cultures are pending. Bacteremia with Strep Anginosis. - Continue antibiotics per ID. - follow up with neurosurgery. Jennifer removed 08/26. - 08/28 as per neurosurgery recommendations the patient will need at least 6 weeks of IV antibiotics before procedure. Continue IV Rocephin. Follow-up repeat MRI. - 08/29 repeat MRI shows a persistence of fluid on the left. Persistent evidence of inflammatory process remains at the L4-5 disc. Discussed the case with Dr. Goldstein from ID who relayed to Dr. Sanchez will let her know if I recommend aspiration or any other procedures needed. We will start the patient on gabapentin for neuropathic pain at the lower back. - The patient status post needle aspiration CT-guided of spinal fluid collection. As per report the patient had 6 cc of serosanguineous, purulent fluid removed. Follow-up cultures. Antibiotics per ID. Continue IV Rocephin. - 09/01 the patient still complains of radicular pain and pain in the lower back. I will increase the dose of gabapentin from 300 mg p.o. 3 times daily to 600 mg p.o. 3 times daily. Continue pain control management as above. - 09/02 pain is better controlled. Continue pain control with gabapentin 600 mg p.o. 3 times a day, oxycodone as needed. -09/04 discussed the case with Dr. Goldstein from infectious disease. Recommend discontinuation of IV Rocephin every 12 hours. As per ID he stopped that cannot be provided. Patient is also not a safe discharge as he did drugs in the hospital. Will consult Dr. Felipe from neurosurgery to assess loculated fluid and timing of surgery for pain symptoms in back and legs. 2. Encephalopathy Likely toxic secondary to drug abuse. S/P lumbar puncture. Evaluated by psychiatry, patient is capable of making decisions. - resolved. - Avoid overly sedating medications. 3. Cocaine abuse Urine toxicology positive for cocaine. There was concern that the patient may have used cocaine while in the hospital as his urine drug screen was positive 8 days after admission. - cessation instruction. -Visitors allowed again. 4. Right iliac artery aneurysm Patient noted to have a 2.9 cm aneurysm of the right internal iliac artery, possibly mycotic aneurysm. This was an incidental finding. He denies IV drug abuse. Appreciate vascular surgery recommendations. - No surgery planned at this time. 5. Chronic kidney disease stage II with acute kidney injury. Creatinine seems stable. - monitor and avoid nephrotoxins. 6. Hypoglycemia Episodes of low blood sugar into the 60s. Blood sugars more stable. - ADAT. Continue Ensure. - check an insulin level. Obtain abdominal US if elevated. 09/04 insulin level elevated at 72.2. Peptide, proinsulin, insulin antibody and obtain an abdominal ultrasound. The blood sugars are not associated with symptoms. These tests are still pending. 7. Anemia Seems chronic. - check Hemoccult. - follow CBC. Anemia likely multifactorial. Follow-up stool blood Hemoccult. -Hemoglobin stable. 8. Hypertension Blood pressure well controlled. -Clonidine discontinued - continue amlodipine. DVT prophylaxis: SCDs. Add Lovenox subcutaneously. Discharge Planning NOT CLEARED by ID FOR DISCHARGE Roly Loving DO Sep 05, 2017 13:25
[2017-09-05 16:00] VITALS: BP 134/92; PULSE 99; RESP 17; TEMP 97.3; O2SAT 96
[2017-09-05] MEDS: ENOXAPARIN SODIUM 40 MG/0.4 ML SYRINGE SQ SCH (17:54)
[2017-09-05 19:55] LABS: C-PEPTIDE 3.18 ng/mL (0.80-3.85)
[2017-09-05 20:00] VITALS: BP 104/66; PULSE 98; RESP 18; TEMP 97.7; O2SAT 91
[2017-09-06] VITALS: BP 110/76; PULSE 94; RESP 18; TEMP 97.9; O2SAT 94
[2017-09-06] MEDS: oxyCODONE/ACETAMINOPHEN 5 MG/325 MG TAB PO PRN ×3 (04:21→22:50)
[2017-09-06] MEDS: CYCLOBENZAPRINE HCL 10 MG TAB PO PRN (06:16)
[2017-09-06 06:30] LABS: AUTOMATED NEUTROPHIL # 4.3 TH/MM3 (1.8-7.7); BASOPHIL # 0.1 TH/MM3 (0-0.2); EOSINOPHIL # 0.3 TH/MM3 (0-0.4); EOSINOPHIL % 4.6 % (0.0-4.0); HEMOGLOBIN 8.2 GM/DL (13.0-17.0); LYMPH % 13.8 % (9.0-44.0); LYMPHOCYTE # 0.8 TH/MM3 (1.0-4.8); MEAN CELL VOLUME 91.6 FL (80.0-100.0); MEAN CORPUSCULAR HEMOGLOBIN 28.9 PG (27.0-34.0); MEAN CORPUSCULAR HGB CONC 31.5 % (32.0-36.0); MEAN PLATELET VOLUME 7.9 FL (7.0-11.0); MONO % 10.5 % (0.0-8.0); MONOCYTE # 0.6 TH/MM3 (0-0.9); NEUT % 70.1 % (16.0-70.0); PLATELET COUNT 142 TH/MM3 (150-450); RED BLOOD COUNT 2.84 MIL/MM3 (4.50-5.90); RED CELL DISTRIBUTION WIDTH 17.3 % (11.6-17.2); WHITE BLOOD COUNT 6.2 TH/MM3 (4.0-11.0)
[2017-09-06 06:57] LABS: ALKALINE PHOSPHATASE 221 U/L (45-117); FREE T4 0.58 NG/DL (0.76-1.46); TOTAL BILIRUBIN ADULT 0.2 MG/DL (0.2-1.0); TOTAL PROTEIN 7.8 GM/DL (6.4-8.2)
[2017-09-06 07:05] LABS: ALBUMIN 1.9 GM/DL (3.4-5.0); ALT (GPT) 25 U/L (12-78); AST (GOT) 40 U/L (15-37); BICARBONATE 25.6 MEQ/L (21.0-32.0); BLOOD UREA NITROGEN 37 MG/DL (7-18); CHLORIDE 107 MEQ/L (98-107); CREATININE 1.62 MG/DL (0.60-1.30); GLOMERULAR FILTRATION RATE 54 ML/MIN (>89); GLUCOSE,RANDOM 71 MG/DL (74-106); MAGNESIUM 1.9 MG/DL (1.5-2.5); PHOSPHORUS 3.3 MG/DL (2.5-4.9); SODIUM (NA) 141 MEQ/L (136-145)
[2017-09-06 08:00] VITALS: BP 99/61; PULSE 86; RESP 18; TEMP 97.7; O2SAT 95
[2017-09-06] MEDS: FAMOTIDINE 20 MG TAB PO SCH ×2 (08:46→21:18)
[2017-09-06] MEDS: GABAPENTIN 300 MG CAP PO SCH ×3 (08:46→21:18)
[2017-09-06] MEDS: predniSONE 10 MG TAB PO SCH (08:46)
[2017-09-06] MEDS: DOCUSATE SODIUM 50 MG/SENNA 8.6 MG TAB PO SCH ×2 (08:46→21:18)
[2017-09-06] MEDS: LACTIC ACID (AMMONIUM LACTATE) 12% LOTION 225 GM BTL TOPICAL SCH ×4 (08:47→21:19)
[2017-09-06] MEDS: POLYETHYLENE GLYCOL 17 GM PKG PO SCH (08:47)
[2017-09-06] MEDS: SODIUM CHLORIDE 0.9% FLUSH 10 ML FLUSH IV FLUSH SCH ×2 (08:47→21:18)
[2017-09-06] MEDS: cefTRIAXone INJ 2,000 MG in SODIUM CHLORIDE 0.9% INJ 100 ML IV SCH ×2 (10:00→21:19)
--- NOTE | 2017-09-06 10:15 | HHI.NSPN ---
(Apolinar Argueta) History Chief Complaint: Right lower back pain (Apolinar Argueta) Interval History 08/14: The patient went for a lateral oblique/retroperitoneal approach for drainage of lumbar retroperitoneal and bilateral psoas muscle abscess by Neurosurgery and General Surgery. Post-operatively the patient was admitted to the [facility] unit for further care and monitoring. 08/15: The patient is awake in bed this afternoon when seen. He does have pain to the left lateral abdominal wall/flank at the surgical incisions. He denies any back or lower extremity pain. He has no numbness or tingling to the lower extremities. There are no evident sensorimotor deficits noted upon examination. 08/20: The patient is asleep when seen but awakens to voice. After that he is awake and alert. He denies any back or lower extremity pain. He has numbness to both feet but only when he stands, otherwise he has no numbness to the lower extremities. He had no numbness to the feet when examined and his muscle strength was normal. He did say that he had some incisional pain but only when he is getting up "or something like that." 08/21: When seen this morning the patient is awake in bed watching TV. He had no complaints but endorsed intermittent back pain. He also endorsed some mild tenderness at the left anterolateral abdominal wall surgical incision. The ALY drains were removed yesterday per General Surgery. There is no change noted in his physical exam. 08/22: This morning the patient is awake in bed watching TV. He did say he had some back pain during the night but had no other complaints. Upon evaluation his midline and lateral back were nontender and there was no change noted in his sensorimotor exam. 08/23: The patient is awake in bed watching TV this morning. He had no complaints and states he is doing alright. He has not had any further back pain since yesterday. His exam is unremarkable from yesterday. 08/24: When seen the patient was awake in bed watching TV. He complained of low back pain during the night and neonatal surgeon. He attributed some of his pain to the bed. He did say it was better but still present. He denied any pain, numbness or tingling into the lower extremities. There was no change in his sensorimotor exam. He was mildly tender to palpation along the left psoas muscle and into the left gluteal muscle. 08/25: This afternoon the patient is awake and watching TV when seen. He did say that he had some slight pain to the back earlier. He denies any pain along the surgical incision. He has no change in his sensorimotor exam. 08/28: The patient reports a sharp pain radiating from the back into the lower extremities when he stands. He also has numbness to the feet. 08/30/2017: Complains of persistent low back pain with some radiation to the proximal right thigh. CT guided aspiration of recurrent psoas muscle abscess per interventional radiology. 09/06: The patient complains of pain to the back when seen this morning. He stated that it recently started and is severe enough to make him cry at times. When asked where the pain is he indicates the right psoas muscle region. He states that the pain does go down into the right thigh at times. When he lays with his knees flexed it does relieve the pain. He had no midline pain upon palpation but was tender to the right psoas. He had no deficits in his sensorimotor exam. He did have referred pain to the back with muscle strength testing. (Apolinar Argueta) Exam Results 09/04/17 09/04/17 09/05/17 09/05/17 09/06/17 09/06/17 06: 18:00 06: 18: 06: 18:00 Intake Total 760 ml 1270 ml 880 ml 1240 ml 100 ml 240 ml Output Total 1800 ml 900 ml 1800 ml 1350 ml 400 ml Balance -1040 ml 370 ml -920 ml -110 ml 100 ml -160 ml Intake Oral 760 ml 1170 ml 780 ml 1140 ml 240 ml IV Total 100 ml 100 ml 100 ml 100 ml Output Urine Total 1800 ml 900 ml 1800 ml 1350 ml 400 ml # Bowel Movements 2 1 1 1 1 Vital Signs Date Time Temp Pulse Resp B/P (MAP) Pulse Ox O2 Delivery O2 Flow Rate FiO2 09/06/17 08:00 97.7 86 18 99/61 (74) 95 09/06/17 00:00 97.9 94 18 110/76 (87) 94 09/05/17 20:00 97.7 98 18 104/66 (79) 91 09/05/17 16:00 97.3 99 17 134/92 (106) 96 09/05/17 12:00 98.1 99 18 138/83 (101) 96 09/05/17 08:11 16 09/05/17 08:00 97.9 94 17 153/93 (113) 97 09/05/17 00:23 97.9 93 18 145/86 (105) 97 09/04/17 20:20 98.8 101 18 137/84 (101) 96 09/04/17 16:00 98.5 105 18 125/85 (98) 99 09/04/17 12:00 98.1 108 18 115/77 (90) 93 09/04/17 08:00 97.9 101 16 140/84 (102) 97 09/04/17 00:12 98.9 100 18 158/88 (111) 97 09/03/17 20:00 98.4 92 18 139/83 (101) 96 09/03/17 16:00 97.1 102 17 161/82 (108) 96 09/03/17 12:00 98.3 100 17 151/98 (115) 96 (Apolinar Argueta) Physical Examination GENERAL: Awake in bed watching TV. Affect essentially normal & readily interacts. No apparent distress. SKIN: Left anterolateral abdominal wall surgical incision approximated w/steri- strips ROZINA. Right psoas puncture site w/intact bandage. No drainage, erythema or streaking noted from either. HEENT: Normocephalic, atraumatic. GASTROINTESTINAL: Abdomen soft, nontender, surgical incision NTTP. MUSCULOSKELETAL: HUANG spontaneously & purposefully w/o difficulty. No evident clubbing or deformity. Midline lumbar spine NTTP. TTP to the right psoas region. Referred low back pain w/muscle strength testing. NEUROLOGICAL: AAOx3. Speech clear & appropriate. Follows commands w/o difficulty. Sensation intact to light touch to the lower extremities except for chronically decrease to soles of both feet. Muscle strength is 5/5 to the lower extremities. Referred low back pain w/ muscle strength testing. (Apolinar Argueta) Lab, Micro, Other Results Laboratory Tests Test 09/05/17 05:55 6/7/18 05:49 White Blood Count 8.0 TH/MM3 6.2 TH/MM3 Red Blood Count 3.24 MIL/MM3 2.84 MIL/MM3 Hemoglobin 9.3 GM/DL 8.2 GM/DL Hematocrit 29.3 % 26.0 % Mean Corpuscular Volume 90.5 FL 91.6 FL Mean Corpuscular Hemoglobin 28.6 PG 28.9 PG Mean Corpuscular Hemoglobin Concent 31.6 % 31.5 % Red Cell Distribution Width 17.0 % 17.3 % Platelet Count 157 TH/MM3 142 TH/MM3 Mean Platelet Volume 7.7 FL 7.9 FL Neutrophils (%) (Auto) 70.2 % 70.1 % Lymphocytes (%) (Auto) 15.6 % 13.8 % Monocytes (%) (Auto) 9.6 % 10.5 % Eosinophils (%) (Auto) 3.7 % 4.6 % Basophils (%) (Auto) 0.9 % 1.0 % Neutrophils # (Auto) 5.6 TH/MM3 4.3 TH/MM3 Lymphocytes # (Auto) 1.2 TH/MM3 0.8 TH/MM3 Monocytes # (Auto) 0.8 TH/MM3 0.6 TH/MM3 Eosinophils # (Auto) 0.3 TH/MM3 0.3 TH/MM3 Basophils # (Auto) 0.1 TH/MM3 0.1 TH/MM3 CBC Comment DIFF FINAL DIFF FINAL Differential Comment Blood Urea Nitrogen 37 MG/DL 37 MG/DL Creatinine 1.51 MG/DL 1.62 MG/DL Random Glucose 63 MG/DL 71 MG/DL Total Protein 8.7 GM/DL 7.8 GM/DL Albumin 2.1 GM/DL 1.9 GM/DL Calcium Level 8.7 MG/DL 8.0 MG/DL Alkaline Phosphatase 251 U/L 221 U/L Aspartate Amino Transf (AST/SGOT) 40 U/L 40 U/L Alanine Aminotransferase (ALT/SGPT) 26 U/L 25 U/L Total Bilirubin 0.3 MG/DL 0.2 MG/DL Sodium Level 138 MEQ/L 141 MEQ/L Potassium Level 5.4 MEQ/L 5.1 MEQ/L Chloride Level 104 MEQ/L 107 MEQ/L Carbon Dioxide Level 29.5 MEQ/L 25.6 MEQ/L Anion Gap 5 MEQ/L 8 MEQ/L Estimat Glomerular Filtration Rate 58 ML/MIN 54 ML/MIN Phosphorus Level 3.3 MG/DL Magnesium Level 1.9 MG/DL Free Thyroxine 0.58 NG/DL Thyroid Stimulating Hormone 3rd Gen 2.600 uIU/ML (Apolinar Argueta) Medical Decision Making Impression and Plan Impression: 1, 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 History of chronic low back pain. 3. L4-5 moderate spinal stenosis w/grade 1 spondylolisthesis 4. Prevertebral/retroperitoneal abscess 5. Possible L5 anterior osteomyelitis w/elevated sed rate and white count Postoperative Diagnosis: (1) Osteomyelitis (Neurosurgery) Lumbar discitis, osteomyelitis (Neurosurgery) Lumbar retroperitoneal-bilateral psoas abscess (Neurosurgery) Psoas abscess, paraspinal abscesses, sepsis. (General Surgery) Patient w/right psoas region pain that will intermittently go into right thigh. No sensorimotor deficits noted except for bottom of feet which are chronically decreased. Reviewed labs for today. Drop in haemoglobin level & platelet count. Worsening of renal function. Elevated AST & alk phos. Wound culture w/o any growth x72 hrs, final on . CT needle aspiration of right psoas w/6 mL serosanguinous/pus fluid aspirated. : Lateral oblique approach for drainage of lumbar retroperitoneal and bilateral psoas muscle abscess (Neurosurgery) Retroperitoneal approach to the psoas muscle and drainage of psoas abscess and paraspinal abscess drainage. (General Surgery - Alyson Sanchez MD) ALY drains d/c'd . : CT guided aspiration of recurrent psoas muscle abscess by Interventional Radiology Plan: Discussed the plan of care with the patient who verbalised his understanding and his questions were answered. Primary management per Hospitalist. Antibiotics per Infectious Disease. Mobilise patient w/assistance. LSO brace when OOB. Physical Therapy eval & tx. Will need at least 6 wks of IV antibiotics and follow-up imaging before consideration of any surgical intervention w/instrumentation. (Apolinar Argueta) Attending Statement The exam, history, and the medical decision-making described in the above note were completed with the assistance of the mid-level provider. I reviewed and agree with the findings presented. I attest that I had a [id number] encounter with the patient on the same day, and personally performed and documented my assessment and findings in the medical record. Patient's neurologic exam remained stable. No evidence of significant radicular deficit or cauda equina syndrome (Guero Felipe MD) Apolinar Argueta Sep 06, 2017 10:15 Guero Felipe MD Sep 19, 2017 20:00
--- NOTE | 2017-09-06 10:50 | HHI.PR ---
Subjective Remarks 6-6 No new complaints at this time Discussed with RN and patient and case management Continue antibiotics per infectious disease Has not been cleared for discharge 6-7 NO NEW COMPLAINTS- HAS PAIN IN RIGHT PSOAS AREA ON AND OFF SEEN BY NEUROSURGERY DW RN AND PT AND CM Objective Vitals Vital Signs Date Time Temp Pulse Resp B/P (MAP) Pulse Ox O2 Delivery O2 Flow Rate FiO2 09/06/17 08:00 97.7 86 18 99/61 (74) 95 09/06/17 00:00 97.9 94 18 110/76 (87) 94 09/05/17 20:00 97.7 98 18 104/66 (79) 91 09/05/17 16:00 97.3 99 17 134/92 (106) 96 09/05/17 12:00 98.1 99 18 138/83 (101) 96 I/O 09/05/17 09/05/17 09/05/17 09/06/17 09/06/17 09/06/17 06:59 14:59 22:59 06:59 14:59 22:59 Intake Total 880 ml 100 ml 1240 ml 240 ml Output Total 1800 ml 1350 ml 400 ml Balance -920 ml 100 ml -110 ml -160 ml Intake Oral 780 ml 1140 ml 240 ml IV Total 100 ml 100 ml 100 ml Output Urine Total 1800 ml 1350 ml 400 ml # Bowel Movements 1 1 1 Result Diagram: 09/06/17 0549 09/06/17 0549 Other Results Laboratory Tests Test 09/05/17 05:55 09/06/17 05:49 White Blood Count 8.0 TH/MM3 6.2 TH/MM3 Red Blood Count 3.24 MIL/MM3 2.84 MIL/MM3 Hemoglobin 9.3 GM/DL 8.2 GM/DL Hematocrit 29.3 % 26.0 % Mean Corpuscular Volume 90.5 FL 91.6 FL Mean Corpuscular Hemoglobin 28.6 PG 28.9 PG Mean Corpuscular Hemoglobin Concent 31.6 % 31.5 % Red Cell Distribution Width 17.0 % 17.3 % Platelet Count 157 TH/MM3 142 TH/MM3 Mean Platelet Volume 7.7 FL 7.9 FL Neutrophils (%) (Auto) 70.2 % 70.1 % Lymphocytes (%) (Auto) 15.6 % 13.8 % Monocytes (%) (Auto) 9.6 % 10.5 % Eosinophils (%) (Auto) 3.7 % 4.6 % Basophils (%) (Auto) 0.9 % 1.0 % Neutrophils # (Auto) 5.6 TH/MM3 4.3 TH/MM3 Lymphocytes # (Auto) 1.2 TH/MM3 0.8 TH/MM3 Monocytes # (Auto) 0.8 TH/MM3 0.6 TH/MM3 Eosinophils # (Auto) 0.3 TH/MM3 0.3 TH/MM3 Basophils # (Auto) 0.1 TH/MM3 0.1 TH/MM3 CBC Comment DIFF FINAL DIFF FINAL Differential Comment Blood Urea Nitrogen 37 MG/DL 37 MG/DL Creatinine 1.51 MG/DL 1.62 MG/DL Random Glucose 63 MG/DL 71 MG/DL Total Protein 8.7 GM/DL 7.8 GM/DL Albumin 2.1 GM/DL 1.9 GM/DL Calcium Level 8.7 MG/DL 8.0 MG/DL Alkaline Phosphatase 251 U/L 221 U/L Aspartate Amino Transf (AST/SGOT) 40 U/L 40 U/L Alanine Aminotransferase (ALT/SGPT) 26 U/L 25 U/L Total Bilirubin 0.3 MG/DL 0.2 MG/DL Sodium Level 138 MEQ/L 141 MEQ/L Potassium Level 5.4 MEQ/L 5.1 MEQ/L Chloride Level 104 MEQ/L 107 MEQ/L Carbon Dioxide Level 29.5 MEQ/L 25.6 MEQ/L Anion Gap 5 MEQ/L 8 MEQ/L Estimat Glomerular Filtration Rate 58 ML/MIN 54 ML/MIN Phosphorus Level 3.3 MG/DL Magnesium Level 1.9 MG/DL Free Thyroxine 0.58 NG/DL Thyroid Stimulating Hormone 3rd Gen 2.600 uIU/ML Imaging Last Impressions Needle Aspiration CT 08/30/17 1356 Signed Impressions: CONCLUSION: 1. Uncomplicated procedure as above. Lumbar Spine CT 08/29/17 0000 Signed Impressions: CONCLUSION: 1. There is destructive changes involving the disc space at L4-5 characteristi c for discitis. 2. There are destructive changes predominantly in the body of L5 consistent wi th osteomyelitis. There is prominent paraspinal soft tissue swelling at the L4- L5 level. 3. Mild grade 1 anterior spondylolisthesis of L4 over L5. 4. Limited visualization of the spinal canal at L4-5 due to the inflammatory c hanges. 5. Bilateral facet arthritis at multiple levels. 6. Broad-based bulging at L2-3 and L3-4. Lumbar Spine MRI 08/28/17 0000 Signed Impressions: CONCLUSION: 1. Improvement as above. Persistent fluid remains on the left. Persistent evid ence for inflammatory process remains at the L4-5 disc. 2. Less inflammatory changes in the retroperitoneum. Chest X-Ray 08/15/17 0000 Signed Impressions: Service Date/Time: Tuesday, August 15, 2017 11:34 - CONCLUSION: Mild compensated cardiomegaly Roly Reina MD FACR Lumbar Puncture Fluoroscopy 08/08/17 0000 Signed Impressions: Service Date/Time: Tuesday, August 08, 2017 15:42 - CONCLUSION: Uncomplicated fluoroscopically guided lumbar puncture. Fady Chan MD Needle Biopsy/Aspiration X-Ray 07/31/17 0000 Signed Impressions: Service Date/Time: Monday, July 31, 2017 13:29 - CONCLUSION: Uncomplicated needle biopsy of the L4/L5 disc space as above. Candelario Reina MD Abdomen/Pelvis CT 07/29/17 0000 Signed Impressions: Service Date/Time: Saturday, July 29, 2017 22:14 - CONCLUSION: 1. Significant new prevertebral soft tissue fullness and stranding centered at the L5 level. There is associated sclerosis and erosive changes in the anterior L5 vertebral body which appear unchanged from recent exams. Overall, findings are concerning for discitis and osteomyelitis. Consider repeat MRI examination for further evaluation. 2. 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 However, evaluation is significantly limited due to lack of IV contrast on this exam. This was not present on remote prior CT exam. A mycotic aneurysm cannot be entirely excluded. Contrast enhanced examination would be greatly beneficial in further evaluation. 3. Nodular appearing liver contour consistent with cirrhosis. 4. IVC filter in place. 5. Cholelithiasis. Tanner Jones MD Objective Remarks GENERAL: Awake alert and oriented 3 talkative and cooperative-- tends to mumble when he speaks SKIN: Warm and dry. HEAD: Atraumatic. Normocephalic. EYES: Pupils equal and round. No scleral icterus. No injection or drainage. Extraocular muscles intact ENT: No nasal bleeding or discharge. Mucous membranes pink and moist. Tongue is midline NECK: Trachea midline. No JVD. Supple CARDIOVASCULAR: Regular rate and rhythm. S1-S2 no S3 or S4 RESPIRATORY: No accessory muscle use. Clear to auscultation. Breath sounds equal bilaterally. GASTROINTESTINAL: Abdomen soft, non-tender, nondistended. Hepatic and splenic margins not palpable. MUSCULOSKELETAL: Extremities without clubbing, cyanosis, or edema. No obvious deformities. NEUROLOGICAL: Awake and alert. No obvious cranial nerve deficits. Motor grossly within normal limits. 4 out of 5 muscle strength in the arms and legs. Normal speech. PSYCHIATRIC: Appropriate mood and affect; insight and judgment normal. Procedures 08/14/17 lateral oblique approach for drainage of lumbar retroperitoneal and bilateral psoas muscle abscess Medications and IVs Current Medications Sodium Chloride (NS Flush) 2 ml UNSCH PRN IV FLUSH FLUSH AFTER USING IV ACCESS ; Start 07/29/17 at 20:15; Stop 07/31/17 at 22:18; Status DC Morphine Sulfate (Morphine Inj) 4 mg ONCE ONCE IV PUSH Last administered on at 20:42; Start 07/29/17 at 20:15; Stop 07/29/17 at 20:16; Status DC Dexamethasone Sodium Phosphate (Decadron Inj) 8 mg ONCE ONCE IV PUSH Last administered on 07/29/17at 20:42; Start 07/29/17 at 20:15; Stop 07/29/17 at 20:16 ; Status DC Sodium Chloride 1,000 ml @ 999 mls/hr BOLUS ONCE IV Last administered on 07/29at 23:26; Start 07/29/17 at 21:45; Stop 07/29/17 at 22:45; Status DC Ceftriaxone Sodium 2000 mg/ Sodium Chloride 100 ml @ 200 mls/hr ONCE ONCE IV Last administered on 07/29/17at 23:26; Start 07/29/17 at 23:00; Stop 07/29/17 at 23:29; Status DC Vancomycin HCl 1000 mg/Sodium Chloride 250 ml @ 250 mls/hr ONCE ONCE IV ; Start 07/29/17 at 23:00; Stop 07/29/17 at 23:59; Status Cancel Pharmacy Profile Note 0 ml @ 0 mls/hr UNSCH OTHER ; Start 07/29/17 at 23:15; Stop 08/06/17 at 14:40; Status DC Cefepime HCl 1000 mg/Sodium Chloride 100 ml @ 200 mls/hr Q12H IV Last administered on 08/01/17at 21:37; Start 07/30/17 at 09:00; Stop 08/02/17 at 06:53; Status DC Sodium Chloride 1,000 ml @ 70 mls/hr [id number] IV Last administered on at 02:34; Start 07/29/17 at 23:01; Stop 08/21/17 at 13:04; Status DC Sodium Chloride (NS Flush) 2 ml UNSCH PRN IV FLUSH FLUSH AFTER USING IV ACCESS Last administered on 09/05/17at 12:06; Start 07/29/17 at 23:15 Sodium Chloride (NS Flush) 2 ml BID IV FLUSH Last administered on 09/06/17at 08: 47; Start 07/30/17 at 09:00 Ondansetron HCl (Zofran Inj) 4 mg Q6H PRN IVP NAUSEA OR VOMITING; Start at 23:15 Acetaminophen (Tylenol) 650 mg Q6H PRN PO FEVER/PAIN SCALE 1 TO 2 Last administered on 08/15/17at 07:38; Start 07/29/17 at 23:15 Morphine Sulfate (Morphine Inj) 2 mg Q3H PRN IV PUSH Pain 6-10; Start 07/29/17 at 23:15; Stop 07/30/17 at 20:43; Status DC Oxycodone HCl (Roxicodone) 5 mg Q4H PRN PO PAIN SCALE 3 TO 5 Last administered on 08/01/17at 05:48; Start 07/29/17 at 23:15; Stop 08/01/17 at 08:56; Status DC Senna/Docusate Sodium (Emilie-Colace) 1 tab BID PO Last administered on 09/05/17at 08:10; Start 07/30/17 at 09:00 Magnesium Hydroxide (Milk Of Magnesia Liq) 30 ml Q12H PRN PO Mild constipation ; Start 07/29/17 at 23:15 Sennosides (Senokot) 17.2 mg Q12H PRN PO Moderate constipation; Start 07/29/17 at 23:15 Bisacodyl (Dulcolax Supp) 10 mg DAILY PRN RECTAL SEVERE CONSITIPATION/ IF NPO ; Start 07/29/17 at 23:15 Lactulose (Lactulose Liq) 30 ml DAILY PRN PO SEVERE CONSITIPATION/ IF PO Last administered on 08/19/17at 13:55; Start 07/29/17 at 23:15 Lorazepam (Ativan Inj) 1 mg Q2H PRN IV PUSH AGITATION/WITHDRAWAL Last administered on 08/14/17at 19:10; Start 07/29/17 at 23:15; Stop 08/24/17 at 13:35 ; Status DC Vancomycin/Sodium Chloride 200 ml @ 200 mls/hr ONCE ONCE IV Last administered on 07/29/17at 23:55; Start 07/30/17 at 00:00; Stop 07/30/17 at 00:59 ; Status DC Vancomycin HCl 1000 mg/Sodium Chloride 250 ml @ 250 mls/hr ONCE ONCE IV Last administered on 07/30/17at 12:08; Start 07/30/17 at 12:00; Stop 07/30/17 at 12:59 ; Status DC Morphine Sulfate (Morphine Inj) 2 mg Q3H PRN IV PUSH Pain 6-10 Last administered on 08/01/17at 01:54; Start 07/30/17 at 20:45; Stop 08/01/17 at 08:56; Status DC Vancomycin HCl 1500 mg/Sodium Chloride 515 ml @ 257.5 mls/ hr ONCE ONCE IV Last administered on 07/31/17 18:19; Start 07/31/17 at 18:00; Stop 07/31/17 at 19: 59; Status DC Fentanyl Citrate (fentaNYL INJ) 100 mcg STK-MED ONCE .ROUTE Last administered on 07/31/17at 13:09; Start 07/31/17 at 13:09; Stop 07/31/17 at 13:10; Status DC Midazolam HCl (Versed Inj) 2 mg STK-MED ONCE .ROUTE Last administered on 13:09; Start 07/31/17 at 13:09; Stop 07/31/17 at 13:10; Status DC Sodium Bicarbonate 50 ml @ As Directed STK-MED ONCE .ROUTE Last administered on 07/31/17 13:33; Start 07/31/17 at 13:33; Stop 07/31/17 at 13:34; Status DC Oxycodone HCl (Roxicodone) 5 mg ONCE ONCE PO Last administered on 07/31/17at 22: 40; Start 07/31/17 at 22:15; Stop 07/31/17 at 22:18; Status DC Oxycodone/ Acetaminophen (Percocet 10-325 Mg) 1 tab Q4H PRN PO PAIN SCALE 4 TO 10 Last administered on 08/06/17at 05:36; Start 08/01/17 at 09:00; Stop 08/09/17 at 09:39; Status DC Hydromorphone HCl (Dilaudid Pf Inj) 0.5 mg Q4H PRN IV PUSH BREAKTHROUGH PAIN Last administered on 08/14/17 13:21; Start 08/01/17 at 09:00; Stop 08/14/17 at 19:29; Status DC Ceftriaxone Sodium 2000 mg/ Sodium Chloride 100 ml @ 200 mls/hr Q12H IV ; Start 08/02/17 at 08:00; Stop 08/02/17 at 11:59; Status DC Ceftriaxone Sodium 2000 mg/ Sodium Chloride 100 ml @ 200 mls/hr Q12H IV Last administered on 08/02/17at 23:39; Start 08/02/17 at 12:00; Stop 08/03/17 at 16:10; Status DC Vancomycin HCl 2000 mg/Sodium Chloride 520 ml @ 250 mls/hr ONCE ONCE IV Last administered on 08/02/17at 14:50; Start 08/02/17 at 14:00; Stop 08/02/17 at 16:04; Status DC Calcium Carbonate (Tums Chew) 500 mg Q2H PRN CHEW indigestion Last administered on 08/05/17at 13:49; Start 08/02/17 at 19:30 Clonidine (Catapres) 0.1 mg ONCE ONCE PO Last administered on 08/03/17 05:07; Start 08/03/17 at 04:45; Stop 08/03/17 at 04:47; Status DC Ceftriaxone Sodium 2000 mg/ Sodium Chloride 100 ml @ 200 mls/hr Q12H IV Last administered on 09/05/17at 20:13; Start 08/03/17 at 17:00 Vancomycin HCl 1750 mg/Sodium Chloride 517.5 ml @ 257.5 mls/ hr ONCE ONCE IV Last administered on 08/04/17at 14:07; Start 08/04/17 at 14:00; Stop 08/04/17 at 16: 00; Status DC Clonidine (Catapres) 0.1 mg Q6H PRN PO SYS BP GREATER THAN 165 MMHG Last administered on 08/06/17at 23:44; Start 08/04/17 at 15:30 Lactic Acid (Lac-Hydrin 12% Lotion) 1 applic BID TOPICAL Last administered on at 08:47; Start 08/04/17 at 21:00 Clonidine (Catapres) 0.1 mg ONCE ONCE PO Last administered on 08/05/17at 05:10; Start 08/05/17 at 04:45; Stop 08/05/17 at 04:46; Status DC Famotidine (Pepcid) 20 mg BID PO Last administered on 09/06/17at 08:46; Start 08/05/17 at 21:00 Clonidine (Catapres) 0.1 mg ONCE ONCE PO Last administered on 08/06/17at 06:45; Start 08/06/17 at 06:45; Stop 08/06/17 at 06:46; Status DC Vancomycin HCl 1750 mg/Sodium Chloride 517.5 ml @ 257.5 mls/ hr ONCE ONCE IV Last administered on 08/06/17at 14:05; Start 08/06/17 at 13:00; Stop 08/06/17 at 14: 40; Status DC Hydralazine HCl (Apresoline Inj) 10 mg Q4H PRN IV PUSH SBP > 165; Start at 10:00; Stop 08/06/17 at 11:01; Status DC Amlodipine Besylate (Norvasc) 10 mg DAILY PO Last administered on 09/06/17at 08: 46; Start 08/06/17 at 11:00 Enalaprilat (Vasotec Inj) 2.5 mg Q6H PRN IV PUSH SBP > 165 Last administered on 09/01/17at 08:10; Start 08/06/17 at 11:00 Oxycodone/ Acetaminophen (Percocet 5-325 Mg) 1 tab Q6H PRN PO PAIN 4-10 Last administered on 08/09/17at 08:14; Start 08/08/17 at 08:45; Stop 08/09/17 at 09:28 ; Status DC Gadodiamide (Omniscan Pf Inj) 20 ml STK-MED ONCE IVCONTRAST Last administered on 08/08/17at 14:30; Start 08/08/17 at 14:30; Stop 08/08/17 at 14:31; Status DC Oxycodone/ Acetaminophen (Percocet 5-325 Mg) 1 tab Q4HR PRN PO PAIN 4-10 Last administered on 09/06/17at 08:46; Start 08/09/17 at 10:00 Zolpidem Tartrate (Ambien) 5 mg ONCE ONCE PO Last administered on 08/13/17at 01 :45; Start 08/13/17 at 01:45; Stop 08/13/17 at 01:46; Status DC Acetaminophen 100 ml @ As Directed STK-MED ONCE IV ; Start 08/14/17 at 12:50; Stop 08/14/17 at 12:51; Status DC Artificial Tears (Lacrilube Opht Oint) 3.5 applic STK-MED ONCE .ROUTE ; Start at 12:50; Stop 08/14/17 at 12:51; Status DC Artificial Tears (Lacrilube Opht Oint) 3.5 applic STK-MED ONCE .ROUTE ; Start at 13:52; Stop 08/14/17 at 13:53; Status DC Lidocaine/ Epinephrine (Xylocaine-Epi 1%-1:100,000 Inj) 20 ml STK-MED ONCE .ROUTE ; Start 08/14/17 at 14:41; Stop 08/14/17 at 14:42; Status DC Thrombin (Thrombin Top Soln) 10,000 units STK-MED ONCE .ROUTE Last administered on 08/14/17at 17:53; Start 08/14/17 at 14:41; Stop 08/14/17 at 14:42 ; Status DC Gelatin (Gelfoam 100 Top) 1 foam STK-MED ONCE .ROUTE Last administered on at 17:53; Start 08/14/17 at 14:41; Stop 08/14/17 at 14:42; Status DC Gentamicin Sulfate (Gentamicin Inj) 240 mg STK-MED ONCE .ROUTE ; Start 08/14/17 at 14:42; Stop 08/14/17 at 14:43; Status DC Ceftriaxone Sodium (Rocephin Inj) 1,000 mg STK-MED ONCE .ROUTE Last administered on 08/14/17 17:20; Start 08/14/17 at 17:00; Stop 08/14/17 at 17:01 ; Status DC Ceftriaxone Sodium (Rocephin Inj) 1,000 mg STK-MED ONCE .ROUTE Last administered on 08/14/17 17:20; Start 08/14/17 at 17:01; Stop 08/14/17 at 17:02 ; Status DC Meperidine HCl (*DEMEROL INJ PERIprocedural ONLY) 25 mg STK-MED ONCE .ROUTE Last administered on 08/14/17 18:49; Start 08/14/17 at 18:49; Stop 08/14/17 at 18:50; Status DC Hydromorphone HCl (*DILAUDID PF INJ PERIprocedure ONLY) 0.5 mg STK-MED ONCE .ROUTE Last administered on 08/14/17 18:49; Start 08/14/17 at 18:49; Stop at 18:50; Status DC Midazolam HCl (Versed Inj) 2 mg STK-MED ONCE .ROUTE ; Start 08/14/17 at 18:53; Stop 08/14/17 at 18:54; Status DC Fentanyl Citrate (fentaNYL INJ) 200 mcg STK-MED ONCE .ROUTE ; Start 08/14/17 at 18:53; Stop 08/14/17 at 18:54; Status DC Morphine Sulfate (*morphine INJ PERIprocedure ONLY) 10 mg STK-MED ONCE .ROUTE Last administered on 08/14/17at 19:11; Start 08/14/17 at 19:11; Stop 08/14/17 at 19:12; Status DC Hydromorphone HCl (Dilaudid Pf Inj) 1 mg Q4H PRN IV PUSH BREAKTHROUGH PAIN Last administered on 08/17/17at 07:46; Start 08/14/17 at 21:00; Stop 08/24/17 at 13:33; Status DC Hydromorphone HCl (Dilaudid Pf Inj) 0.5 mg Q3H PRN IV PUSH Pain 3-5; if unable to take PO; Start 08/14/17 at 19:30; Stop 08/22/17 at 15:54; Status DC Naloxone HCl (Narcan Inj) 0.4 mg UNSCH PRN IV PUSH SEE LABEL COMMENTS; Start at 19:30 Miscellaneous Information ([facility] Nursing Information) ALL NURSING DEPARTME... UNSCH PRN .XX SEE LABEL COMMENTS; Start 08/14/17 at 20:00; Stop 08/15/17 at 19: 59; Status DC Albuterol Sulfate (Proair Hfa Inh) 2 puff Q4H PRN INH SHORTNESS OF BREATH; Start 08/14/17 at 20:30 Amlodipine Besylate (Norvasc) 10 mg DAILY PO ; Start 08/15/17 at 09:00; Stop at 14:31; Status DC Clonidine (Catapres) 0.1 mg DAILY PO Last administered on 08/24/17at 07:58; Start 08/15/17 at 09:00; Stop 08/24/17 at 13:35; Status DC Cyclobenzaprine HCl (Flexeril) 5 mg TID PRN PO SPASM Last administered on at 06:16; Start 08/14/17 at 20:30 Lactic Acid (Lac-Hydrin 12% Lotion) 1 applic BID TOPICAL Last administered on at 09:00; Start 08/17/17 at 11:00 Polyethylene Glycol (Miralax) 17 gm DAILY PO Last administered on 09/05/17at 08: 10; Start 08/18/17 at 09:00 Prednisone (Deltasone) 10 mg DAILY PO Last administered on 09/06/17at 08:46; Start 08/21/17 at 09:00 Magnesium Citrate (Citroma Liq) 300 ml ONCE ONCE PO Last administered on at 15:15; Start 08/21/17 at 13:15; Stop 08/21/17 at 13:16; Status DC Dextrose/Sodium Chloride 1,000 ml @ 75 mls/hr [id number] IV Last administered on 08/22/17at 17:07; Start 08/22/17 at 15:45; Stop 08/23/17 at 05:04; Status DC Dextrose/Sodium Chloride 1,000 ml @ 100 mls/hr Q10H IV Last administered on at 12:48; Start 08/24/17 at 14:00; Stop 08/25/17 at 09:59; Status DC Dextrose/Sodium Chloride 1,000 ml @ 100 mls/hr Q10H IV Last administered on at 23:14; Start 08/25/17 at 11:45; Stop 08/26/17 at 16:28; Status DC Sodium Chloride 250 ml @ 15 mls/hr ONCE ONCE IV Last administered on at 10:17; Start 08/28/17 at 06:15; Stop 08/28/17 at 22:54; Status DC Gadodiamide (Omniscan Pf Inj) 20 ml STK-MED ONCE IVCONTRAST Last administered on 08/28/17at 18:44; Start 08/28/17 at 18:42; Stop 08/28/17 at 18:43; Status DC Gabapentin (Neurontin) 300 mg TID PO Last administered on 09/01/17at 08:10; Start 08/29/17 at 13:00; Stop 09/01/17 at 12:15; Status DC Iohexol (Omnipaque 350 Inj) 94 ml STK-MED ONCE IVCONTRAST Last administered on 08/29/17at 22:23; Start 08/29/17 at 22:23; Stop 08/29/17 at 22:24; Status DC Midazolam HCl (Versed Inj) 5 mg STK-MED ONCE .ROUTE Last administered on at 15:16; Start 08/30/17 at 15:16; Stop 08/30/17 at 15:17; Status DC Fentanyl Citrate (fentaNYL INJ) 250 mcg STK-MED ONCE .ROUTE Last administered on 08/30/17at 15:16; Start 08/30/17 at 15:16; Stop 08/30/17 at 15:17; Status DC Gabapentin (Neurontin) 600 mg TID PO Last administered on 09/06/17at 08:46; Start 09/01/17 at 13:00 Enoxaparin Sodium (Lovenox Inj) 40 mg Q24H SQ Last administered on 09/05/17at 17: 54; Start 09/02/17 at 16:00 A/P Problem List: (1) Osteomyelitis ICD Code: M86.9 - Osteomyelitis, unspecified Status: Acute (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 Osteomyelitis of the L5 vertebra/bilateral psoas muscle abscess/ bacteremia Status post CT-guided removal of fluid for culture as well as disc biopsy on 07/31. Appreciate neurosurgery, vascular surgery, infectious disease recommendations. Status post drainage of abscess on 08/14/17. Wound culture is negative. Mycobacterial and fungal cultures are pending. Bacteremia with Strep Anginosis. - Continue antibiotics per ID. - follow up with neurosurgery. [place] removed 08/26. - 08/28 as per neurosurgery recommendations the patient will need at least 6 weeks of IV antibiotics before procedure. Continue IV Rocephin. Follow-up repeat MRI. - 08/29 repeat MRI shows a persistence of fluid on the left. Persistent evidence of inflammatory process remains at the L4-5 disc. Discussed the case with Dr. Goldstein from ID who relayed to Dr. Sanchez will let her know if I recommend aspiration or any other procedures needed. We will start the patient on gabapentin for neuropathic pain at the lower back. - The patient status post needle aspiration CT-guided of spinal fluid collection. As per report the patient had 6 cc of serosanguineous, purulent fluid removed. Follow-up cultures. Antibiotics per ID. Continue IV Rocephin. - 09/01 the patient still complains of radicular pain and pain in the lower back. I will increase the dose of gabapentin from 300 mg p.o. 3 times daily to 600 mg p.o. 3 times daily. Continue pain control management as above. - 09/02 pain is better controlled. Continue pain control with gabapentin 600 mg p.o. 3 times a day, oxycodone as needed. -09/04 discussed the case with Dr. Goldstein from infectious disease. Recommend discontinuation of IV Rocephin every 12 hours. As per ID he stopped that cannot be provided. Patient is also not a safe discharge as he did drugs in the hospital. Will consult Dr. Felipe from neurosurgery to assess loculated fluid and timing of surgery for pain symptoms in back and legs.- NO SURGERY PER NEUROSURGERY 2. Encephalopathy Likely toxic secondary to drug abuse. S/P lumbar puncture. Evaluated by psychiatry, patient is capable of making decisions. - resolved. - Avoid overly sedating medications. 3. Cocaine abuse Urine toxicology positive for cocaine. There was concern that the patient may have used cocaine while in the hospital as his urine drug screen was positive 8 days after admission. - cessation instruction. -Visitors allowed again. 4. Right iliac artery aneurysm Patient noted to have a 2.9 cm aneurysm of the right internal iliac artery, possibly mycotic aneurysm. This was an incidental finding. He denies IV drug abuse. Appreciate vascular surgery recommendations. - No surgery planned at this time. 5. Chronic kidney disease stage II with acute kidney injury. Creatinine seems stable. - monitor and avoid nephrotoxins. 6. Hypoglycemia Episodes of low blood sugar into the 60s. Blood sugars more stable. - ADAT. Continue Ensure. - check an insulin level. Obtain abdominal US if elevated. 6/5 insulin level elevated at 72.2. Peptide, proinsulin, insulin antibody and obtain an abdominal ultrasound. The blood sugars are not associated with symptoms. These tests are still pending. 7. Anemia Seems chronic. - check Hemoccult. - follow CBC. Anemia likely multifactorial. Follow-up stool blood Hemoccult. -Hemoglobin stable. 8. Hypertension Blood pressure well controlled. -Clonidine discontinued - continue amlodipine. DVT prophylaxis: SCDs. Add Lovenox subcutaneously. Discharge Planning NOT CLEARED by ID FOR DISCHARGE Roly Loving DO Sep 06, 2017 10:49
[2017-09-06 12:00] VITALS: BP 173/99; PULSE 102; RESP 18; TEMP 97.5; O2SAT 97
[2017-09-06] MEDS: ENOXAPARIN SODIUM 40 MG/0.4 ML SYRINGE SQ SCH (15:23)
[2017-09-06 16:00] VITALS: BP 162/99; PULSE 102; RESP 18; TEMP 97.2; O2SAT 99
[2017-09-06 17:09] LABS: HEMOGLOBIN A1C 4.1 % (4.3-6.0)
[2017-09-06 20:00] VITALS: BP 128/80; PULSE 103; RESP 20; TEMP 97.2; O2SAT 97
[2017-09-06 23:52] LABS: INSULIN AUTO ANTIBODIES LESS THAN 0.4 U/mL (<0.4)
[2017-09-07] VITALS: BP 126/77; PULSE 95; RESP 20; TEMP 97.8; O2SAT 96
[2017-09-07 08:00] VITALS: BP 144/107; PULSE 100; RESP 20; TEMP 97.6; O2SAT 95
[2017-09-07] MEDS: GABAPENTIN 300 MG CAP PO SCH ×2 (08:15→20:11)
[2017-09-07] MEDS: FAMOTIDINE 20 MG TAB PO SCH ×2 (08:15→20:11)
[2017-09-07] MEDS: predniSONE 10 MG TAB PO SCH (08:16)
[2017-09-07] MEDS: LACTIC ACID (AMMONIUM LACTATE) 12% LOTION 225 GM BTL TOPICAL SCH ×4 (08:16→20:12)
[2017-09-07] MEDS: cefTRIAXone INJ 2,000 MG in SODIUM CHLORIDE 0.9% INJ 100 ML IV SCH ×2 (08:16→20:12)
[2017-09-07] MEDS: SODIUM CHLORIDE 0.9% FLUSH 10 ML FLUSH IV FLUSH SCH ×2 (08:16→20:12)
[2017-09-07] MEDS: DOCUSATE SODIUM 50 MG/SENNA 8.6 MG TAB PO SCH ×2 (08:17→20:11)
[2017-09-07] MEDS: oxyCODONE/ACETAMINOPHEN 5 MG/325 MG TAB PO PRN ×3 (08:17→17:22)
[2017-09-07] MEDS: POLYETHYLENE GLYCOL 17 GM PKG PO SCH (08:18)
[2017-09-07 12:00] VITALS: BP 128/87; PULSE 99; RESP 20; TEMP 97.4; O2SAT 100
--- NOTE | 2017-09-07 13:29 | HHI.PR ---
Subjective Remarks 6-6 No new complaints at this time Discussed with RN and patient and case management Continue antibiotics per infectious disease Has not been cleared for discharge 6-7 NO NEW COMPLAINTS- HAS PAIN IN RIGHT PSOAS AREA ON AND OFF SEEN BY NEUROSURGERY DW RN AND PT AND CM 6-8 no current complaints Still has some pain on and off in the right psoas region Continue current antibiotic Not cleared for discharge Objective Vitals Vital Signs Date Time Temp Pulse Resp B/P (MAP) Pulse Ox O2 Delivery O2 Flow Rate FiO2 09/07/17 08:00 97.6 100 20 144/107 (119) 95 09/07/17 00:00 97.8 95 20 126/77 (93) 96 09/06/17 20:00 97.2 103 20 128/80 (96) 97 09/06/17 16:00 97.2 102 18 162/99 (120) 99 I/O 09/06/17 09/06/17 09/06/17 09/07/17 09/07/17 09/07/17 07:00 15:00 23:00 07:00 15:00 23:00 Intake Total 240 ml 100 ml 480 ml Output Total 400 ml 1000 ml 750 ml Balance -160 ml 100 ml -520 ml -750 ml Intake Oral 240 ml 480 ml IV Total 100 ml Output Urine Total 400 ml 1000 ml 750 ml # Bowel Movements 1 Result Diagram: 09/06/17 0549 09/06/17 0549 Other Results Laboratory Tests Test 09/05/17 05:55 09/06/17 05:49 White Blood Count 8.0 TH/MM3 6.2 TH/MM3 Red Blood Count 3.24 MIL/MM3 2.84 MIL/MM3 Hemoglobin 9.3 GM/DL 8.2 GM/DL Hematocrit 29.3 % 26.0 % Mean Corpuscular Volume 90.5 FL 91.6 FL Mean Corpuscular Hemoglobin 28.6 PG 28.9 PG Mean Corpuscular Hemoglobin Concent 31.6 % 31.5 % Red Cell Distribution Width 17.0 % 17.3 % Platelet Count 157 TH/MM3 142 TH/MM3 Mean Platelet Volume 7.7 FL 7.9 FL Neutrophils (%) (Auto) 70.2 % 70.1 % Lymphocytes (%) (Auto) 15.6 % 13.8 % Monocytes (%) (Auto) 9.6 % 10.5 % Eosinophils (%) (Auto) 3.7 % 4.6 % Basophils (%) (Auto) 0.9 % 1.0 % Neutrophils # (Auto) 5.6 TH/MM3 4.3 TH/MM3 Lymphocytes # (Auto) 1.2 TH/MM3 0.8 TH/MM3 Monocytes # (Auto) 0.8 TH/MM3 0.6 TH/MM3 Eosinophils # (Auto) 0.3 TH/MM3 0.3 TH/MM3 Basophils # (Auto) 0.1 TH/MM3 0.1 TH/MM3 CBC Comment DIFF FINAL DIFF FINAL Differential Comment Blood Urea Nitrogen 37 MG/DL 37 MG/DL Creatinine 1.51 MG/DL 1.62 MG/DL Random Glucose 63 MG/DL 71 MG/DL Total Protein 8.7 GM/DL 7.8 GM/DL Albumin 2.1 GM/DL 1.9 GM/DL Calcium Level 8.7 MG/DL 8.0 MG/DL Alkaline Phosphatase 251 U/L 221 U/L Aspartate Amino Transf (AST/SGOT) 40 U/L 40 U/L Alanine Aminotransferase (ALT/SGPT) 26 U/L 25 U/L Total Bilirubin 0.3 MG/DL 0.2 MG/DL Sodium Level 138 MEQ/L 141 MEQ/L Potassium Level 5.4 MEQ/L 5.1 MEQ/L Chloride Level 104 MEQ/L 107 MEQ/L Carbon Dioxide Level 29.5 MEQ/L 25.6 MEQ/L Anion Gap 5 MEQ/L 8 MEQ/L Estimat Glomerular Filtration Rate 58 ML/MIN 54 ML/MIN Phosphorus Level 3.3 MG/DL Magnesium Level 1.9 MG/DL Hemoglobin A1c 4.1 % Free Thyroxine 0.58 NG/DL Thyroid Stimulating Hormone 3rd Gen 2.600 uIU/ML Imaging Last Impressions Needle Aspiration CT 08/30/17 1356 Signed Impressions: CONCLUSION: 1. Uncomplicated procedure as above. Lumbar Spine CT 08/29/17 0000 Signed Impressions: CONCLUSION: 1. There is destructive changes involving the disc space at L4-5 characteristi c for discitis. 2. There are destructive changes predominantly in the body of L5 consistent wi th osteomyelitis. There is prominent paraspinal soft tissue swelling at the L4- L5 level. 3. Mild grade 1 anterior spondylolisthesis of L4 over L5. 4. Limited visualization of the spinal canal at L4-5 due to the inflammatory c hanges. 5. Bilateral facet arthritis at multiple levels. 6. Broad-based bulging at L2-3 and L3-4. Lumbar Spine MRI 08/28/17 0000 Signed Impressions: CONCLUSION: 1. Improvement as above. Persistent fluid remains on the left. Persistent evid ence for inflammatory process remains at the L4-5 disc. 2. Less inflammatory changes in the retroperitoneum. Chest X-Ray 08/15/17 0000 Signed Impressions: Service Date/Time: Tuesday, August 15, 2017 11:34 - CONCLUSION: Mild compensated cardiomegaly Roly Reina MD FACR Lumbar Puncture Fluoroscopy 08/08/17 0000 Signed Impressions: Service Date/Time: Tuesday, August 08, 2017 15:42 - CONCLUSION: Uncomplicated fluoroscopically guided lumbar puncture. Fady Chan MD Needle Biopsy/Aspiration X-Ray 07/31/17 0000 Signed Impressions: Service Date/Time: Monday, July 31, 2017 13:29 - CONCLUSION: Uncomplicated needle biopsy of the L4/L5 disc space as above. Candelario Reina MD Abdomen/Pelvis CT 07/29/17 0000 Signed Impressions: Service Date/Time: Saturday, July 29, 2017 22:14 - CONCLUSION: 1. Significant new prevertebral soft tissue fullness and stranding centered at the L5 level. There is associated sclerosis and erosive changes in the anterior L5 vertebral body which appear unchanged from recent exams. Overall, findings are concerning for discitis and osteomyelitis. Consider repeat MRI examination for further evaluation. 2. 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 However, evaluation is significantly limited due to lack of IV contrast on this exam. This was not present on remote prior CT exam. A mycotic aneurysm cannot be entirely excluded. Contrast enhanced examination would be greatly beneficial in further evaluation. 3. Nodular appearing liver contour consistent with cirrhosis. 4. IVC filter in place. 5. Cholelithiasis. Tanner Jones MD Objective Remarks GENERAL: Awake alert and oriented 3 talkative and cooperative-- tends to mumble when he speaks SKIN: Warm and dry. HEAD: Atraumatic. Normocephalic. EYES: Pupils equal and round. No scleral icterus. No injection or drainage. Extraocular muscles intact ENT: No nasal bleeding or discharge. Mucous membranes pink and moist. Tongue is midline NECK: Trachea midline. No JVD. Supple CARDIOVASCULAR: Regular rate and rhythm. S1-S2 no S3 or S4 RESPIRATORY: No accessory muscle use. Clear to auscultation. Breath sounds equal bilaterally. GASTROINTESTINAL: Abdomen soft, non-tender, nondistended. Hepatic and splenic margins not palpable. MUSCULOSKELETAL: Extremities without clubbing, cyanosis, or edema. No obvious deformities. NEUROLOGICAL: Awake and alert. No obvious cranial nerve deficits. Motor grossly within normal limits. 4 out of 5 muscle strength in the arms and legs. Normal speech. PSYCHIATRIC: Appropriate mood and affect; insight and judgment normal. Procedures 08/14/17 lateral oblique approach for drainage of lumbar retroperitoneal and bilateral psoas muscle abscess Medications and IVs Current Medications Sodium Chloride (NS Flush) 2 ml UNSCH PRN IV FLUSH FLUSH AFTER USING IV ACCESS ; Start 07/29/17 at 20:15; Stop 07/31/17 at 22:18; Status DC Morphine Sulfate (Morphine Inj) 4 mg ONCE ONCE IV PUSH Last administered on at 20:42; Start 07/29/17 at 20:15; Stop 07/29/17 at 20:16; Status DC Dexamethasone Sodium Phosphate (Decadron Inj) 8 mg ONCE ONCE IV PUSH Last administered on 07/29/17at 20:42; Start 07/29/17 at 20:15; Stop 07/29/17 at 20:16 ; Status DC Sodium Chloride 1,000 ml @ 999 mls/hr BOLUS ONCE IV Last administered on 07/29at 23:26; Start 07/29/17 at 21:45; Stop 07/29/17 at 22:45; Status DC Ceftriaxone Sodium 2000 mg/ Sodium Chloride 100 ml @ 200 mls/hr ONCE ONCE IV Last administered on 07/29/17at 23:26; Start 07/29/17 at 23:00; Stop 07/29/17 at 23:29; Status DC Vancomycin HCl 1000 mg/Sodium Chloride 250 ml @ 250 mls/hr ONCE ONCE IV ; Start 07/29/17 at 23:00; Stop 07/29/17 at 23:59; Status Cancel Pharmacy Profile Note 0 ml @ 0 mls/hr UNSCH OTHER ; Start 07/29/17 at 23:15; Stop 08/06/17 at 14:40; Status DC Cefepime HCl 1000 mg/Sodium Chloride 100 ml @ 200 mls/hr Q12H IV Last administered on 08/01/17at 21:37; Start 07/30/17 at 09:00; Stop 08/02/17 at 06:53; Status DC Sodium Chloride 1,000 ml @ 70 mls/hr [id number] IV Last administered on at 02:34; Start 07/29/17 at 23:01; Stop 08/21/17 at 13:04; Status DC Sodium Chloride (NS Flush) 2 ml UNSCH PRN IV FLUSH FLUSH AFTER USING IV ACCESS Last administered on 09/05/17at 12:06; Start 07/29/17 at 23:15 Sodium Chloride (NS Flush) 2 ml BID IV FLUSH Last administered on 09/07/17at 08: 16; Start 07/30/17 at 09:00 Ondansetron HCl (Zofran Inj) 4 mg Q6H PRN IVP NAUSEA OR VOMITING; Start at 23:15 Acetaminophen (Tylenol) 650 mg Q6H PRN PO FEVER/PAIN SCALE 1 TO 2 Last administered on 08/15/17at 07:38; Start 07/29/17 at 23:15 Morphine Sulfate (Morphine Inj) 2 mg Q3H PRN IV PUSH Pain 6-10; Start 07/29/17 at 23:15; Stop 07/30/17 at 20:43; Status DC Oxycodone HCl (Roxicodone) 5 mg Q4H PRN PO PAIN SCALE 3 TO 5 Last administered on 08/01/17at 05:48; Start 07/29/17 at 23:15; Stop 08/01/17 at 08:56; Status DC Senna/Docusate Sodium (Emilie-Colace) 1 tab BID PO Last administered on 09/06/17at 21:18; Start 07/30/17 at 09:00 Magnesium Hydroxide (Milk Of Magnesia Liq) 30 ml Q12H PRN PO Mild constipation ; Start 07/29/17 at 23:15 Sennosides (Senokot) 17.2 mg Q12H PRN PO Moderate constipation; Start 07/29/17 at 23:15 Bisacodyl (Dulcolax Supp) 10 mg DAILY PRN RECTAL SEVERE CONSITIPATION/ IF NPO ; Start 07/29/17 at 23:15 Lactulose (Lactulose Liq) 30 ml DAILY PRN PO SEVERE CONSITIPATION/ IF PO Last administered on 08/19/17at 13:55; Start 07/29/17 at 23:15 Lorazepam (Ativan Inj) 1 mg Q2H PRN IV PUSH AGITATION/WITHDRAWAL Last administered on 08/14/17at 19:10; Start 07/29/17 at 23:15; Stop 08/24/17 at 13:35 ; Status DC Vancomycin/Sodium Chloride 200 ml @ 200 mls/hr ONCE ONCE IV Last administered on 07/29/17at 23:55; Start 07/30/17 at 00:00; Stop 07/30/17 at 00:59 ; Status DC Vancomycin HCl 1000 mg/Sodium Chloride 250 ml @ 250 mls/hr ONCE ONCE IV Last administered on 07/30/17at 12:08; Start 07/30/17 at 12:00; Stop 07/30/17 at 12:59 ; Status DC Morphine Sulfate (Morphine Inj) 2 mg Q3H PRN IV PUSH Pain 6-10 Last administered on 08/01/17at 01:54; Start 07/30/17 at 20:45; Stop 08/01/17 at 08:56; Status DC Vancomycin HCl 1500 mg/Sodium Chloride 515 ml @ 257.5 mls/ hr ONCE ONCE IV Last administered on 07/31/17 18:19; Start 07/31/17 at 18:00; Stop 07/31/17 at 19: 59; Status DC Fentanyl Citrate (fentaNYL INJ) 100 mcg STK-MED ONCE .ROUTE Last administered on 07/31/17at 13:09; Start 07/31/17 at 13:09; Stop 07/31/17 at 13:10; Status DC Midazolam HCl (Versed Inj) 2 mg STK-MED ONCE .ROUTE Last administered on at 13:09; Start 07/31/17 at 13:09; Stop 07/31/17 at 13:10; Status DC Sodium Bicarbonate 50 ml @ As Directed STK-MED ONCE .ROUTE Last administered on 07/31/17at 13:33; Start 07/31/17 at 13:33; Stop 07/31/17 at 13:34; Status DC Oxycodone HCl (Roxicodone) 5 mg ONCE ONCE PO Last administered on 07/31/17at 22: 40; Start 07/31/17 at 22:15; Stop 07/31/17 at 22:18; Status DC Oxycodone/ Acetaminophen (Percocet 10-325 Mg) 1 tab Q4H PRN PO PAIN SCALE 4 TO 10 Last administered on 08/06/17at 05:36; Start 08/01/17 at 09:00; Stop 08/09/17 at 09:39; Status DC Hydromorphone HCl (Dilaudid Pf Inj) 0.5 mg Q4H PRN IV PUSH BREAKTHROUGH PAIN Last administered on 08/14/17at 13:21; Start 08/01/17 at 09:00; Stop 08/14/17 at 19:29; Status DC Ceftriaxone Sodium 2000 mg/ Sodium Chloride 100 ml @ 200 mls/hr Q12H IV ; Start 08/02/17 at 08:00; Stop 08/02/17 at 11:59; Status DC Ceftriaxone Sodium 2000 mg/ Sodium Chloride 100 ml @ 200 mls/hr Q12H IV Last administered on 08/02/17at 23:39; Start 08/02/17 at 12:00; Stop 08/03/17 at 16:10; Status DC Vancomycin HCl 2000 mg/Sodium Chloride 520 ml @ 250 mls/hr ONCE ONCE IV Last administered on 08/02/17at 14:50; Start 08/02/17 at 14:00; Stop 08/02/17 at 16:04; Status DC Calcium Carbonate (Tums Chew) 500 mg Q2H PRN CHEW indigestion Last administered on 08/05/17at 13:49; Start 08/02/17 at 19:30 Clonidine (Catapres) 0.1 mg ONCE ONCE PO Last administered on 08/03/17 05:07; Start 08/03/17 at 04:45; Stop 08/03/17 at 04:47; Status DC Ceftriaxone Sodium 2000 mg/ Sodium Chloride 100 ml @ 200 mls/hr Q12H IV Last administered on 09/07/17at 08:16; Start 08/03/17 at 17:00 Vancomycin HCl 1750 mg/Sodium Chloride 517.5 ml @ 257.5 mls/ hr ONCE ONCE IV Last administered on 08/04/17at 14:07; Start 08/04/17 at 14:00; Stop 08/04/17 at 16: 00; Status DC Clonidine (Catapres) 0.1 mg Q6H PRN PO SYS BP GREATER THAN 165 MMHG Last administered on 08/06/17at 23:44; Start 08/04/17 at 15:30 Lactic Acid (Lac-Hydrin 12% Lotion) 1 applic BID TOPICAL Last administered on at 08:17; Start 08/04/17 at 21:00 Clonidine (Catapres) 0.1 mg ONCE ONCE PO Last administered on 08/05/17at 05:10; Start 08/05/17 at 04:45; Stop 08/05/17 at 04:46; Status DC Famotidine (Pepcid) 20 mg BID PO Last administered on 09/07/17at 08:15; Start 08/05/17 at 21:00 Clonidine (Catapres) 0.1 mg ONCE ONCE PO Last administered on 08/06/17at 06:45; Start 08/06/17 at 06:45; Stop 08/06/17 at 06:46; Status DC Vancomycin HCl 1750 mg/Sodium Chloride 517.5 ml @ 257.5 mls/ hr ONCE ONCE IV Last administered on 08/06/17at 14:05; Start 08/06/17 at 13:00; Stop 08/06/17 at 14: 40; Status DC Hydralazine HCl (Apresoline Inj) 10 mg Q4H PRN IV PUSH SBP > 165; Start at 10:00; Stop 08/06/17 at 11:01; Status DC Amlodipine Besylate (Norvasc) 10 mg DAILY PO Last administered on 09/07/17at 08: 15; Start 08/06/17 at 11:00 Enalaprilat (Vasotec Inj) 2.5 mg Q6H PRN IV PUSH SBP > 165 Last administered on 09/01/17at 08:10; Start 08/06/17 at 11:00 Oxycodone/ Acetaminophen (Percocet 5-325 Mg) 1 tab Q6H PRN PO PAIN 4-10 Last administered on 08/09/17at 08:14; Start 08/08/17 at 08:45; Stop 08/09/17 at 09:28 ; Status DC Gadodiamide (Omniscan Pf Inj) 20 ml STK-MED ONCE IVCONTRAST Last administered on 08/08/17at 14:30; Start 08/08/17 at 14:30; Stop 08/08/17 at 14:31; Status DC Oxycodone/ Acetaminophen (Percocet 5-325 Mg) 1 tab Q4HR PRN PO PAIN 4-10 Last administered on 09/07/17at 12:28; Start 08/09/17 at 10:00 Zolpidem Tartrate (Ambien) 5 mg ONCE ONCE PO Last administered on 08/13/17at 01 :45; Start 08/13/17 at 01:45; Stop 08/13/17 at 01:46; Status DC Acetaminophen 100 ml @ As Directed STK-MED ONCE IV ; Start 08/14/17 at 12:50; Stop 08/14/17 at 12:51; Status DC Artificial Tears (Lacrilube Opht Oint) 3.5 applic STK-MED ONCE .ROUTE ; Start at 12:50; Stop 08/14/17 at 12:51; Status DC Artificial Tears (Lacrilube Opht Oint) 3.5 applic STK-MED ONCE .ROUTE ; Start at 13:52; Stop 08/14/17 at 13:53; Status DC Lidocaine/ Epinephrine (Xylocaine-Epi 1%-1:100,000 Inj) 20 ml STK-MED ONCE .ROUTE ; Start 08/14/17 at 14:41; Stop 08/14/17 at 14:42; Status DC Thrombin (Thrombin Top Soln) 10,000 units STK-MED ONCE .ROUTE Last administered on 08/14/17at 17:53; Start 08/14/17 at 14:41; Stop 08/14/17 at 14:42 ; Status DC Gelatin (Gelfoam 100 Top) 1 foam STK-MED ONCE .ROUTE Last administered on at 17:53; Start 08/14/17 at 14:41; Stop 08/14/17 at 14:42; Status DC Gentamicin Sulfate (Gentamicin Inj) 240 mg STK-MED ONCE .ROUTE ; Start 08/14/17 at 14:42; Stop 08/14/17 at 14:43; Status DC Ceftriaxone Sodium (Rocephin Inj) 1,000 mg STK-MED ONCE .ROUTE Last administered on 08/14/17 17:20; Start 08/14/17 at 17:00; Stop 08/14/17 at 17:01 ; Status DC Ceftriaxone Sodium (Rocephin Inj) 1,000 mg STK-MED ONCE .ROUTE Last administered on 08/14/17 17:20; Start 08/14/17 at 17:01; Stop 08/14/17 at 17:02 ; Status DC Meperidine HCl (*DEMEROL INJ PERIprocedural ONLY) 25 mg STK-MED ONCE .ROUTE Last administered on 08/14/17at 18:49; Start 08/14/17 at 18:49; Stop 08/14/17 at 18:50; Status DC Hydromorphone HCl (*DILAUDID PF INJ PERIprocedure ONLY) 0.5 mg STK-MED ONCE .ROUTE Last administered on 08/14/17 18:49; Start 08/14/17 at 18:49; Stop at 18:50; Status DC Midazolam HCl (Versed Inj) 2 mg STK-MED ONCE .ROUTE ; Start 08/14/17 at 18:53; Stop 08/14/17 at 18:54; Status DC Fentanyl Citrate (fentaNYL INJ) 200 mcg STK-MED ONCE .ROUTE ; Start 08/14/17 at 18:53; Stop 08/14/17 at 18:54; Status DC Morphine Sulfate (*morphine INJ PERIprocedure ONLY) 10 mg STK-MED ONCE .ROUTE Last administered on 08/14/17at 19:11; Start 08/14/17 at 19:11; Stop 08/14/17 at 19:12; Status DC Hydromorphone HCl (Dilaudid Pf Inj) 1 mg Q4H PRN IV PUSH BREAKTHROUGH PAIN Last administered on 08/17/17at 07:46; Start 08/14/17 at 21:00; Stop 08/24/17 at 13:33; Status DC Hydromorphone HCl (Dilaudid Pf Inj) 0.5 mg Q3H PRN IV PUSH Pain 3-5; if unable to take PO; Start 08/14/17 at 19:30; Stop 08/22/17 at 15:54; Status DC Naloxone HCl (Narcan Inj) 0.4 mg UNSCH PRN IV PUSH SEE LABEL COMMENTS; Start at 19:30 Miscellaneous Information ([facility] [place] Nursing Information) ALL NURSING DEPARTME... UNSCH PRN .XX SEE LABEL COMMENTS; Start 08/14/17 at 20:00; Stop 08/15/17 at 19: 59; Status DC Albuterol Sulfate (Proair Hfa Inh) 2 puff Q4H PRN INH SHORTNESS OF BREATH; Start 08/14/17 at 20:30 Amlodipine Besylate (Norvasc) 10 mg DAILY PO ; Start 08/15/17 at 09:00; Stop at 14:31; Status DC Clonidine (Catapres) 0.1 mg DAILY PO Last administered on 08/24/17at 07:58; Start 08/15/17 at 09:00; Stop 08/24/17 at 13:35; Status DC Cyclobenzaprine HCl (Flexeril) 5 mg TID PRN PO SPASM Last administered on at 06:16; Start 08/14/17 at 20:30 Lactic Acid (Lac-Hydrin 12% Lotion) 1 applic BID TOPICAL Last administered on at 21:19; Start 08/17/17 at 11:00 Polyethylene Glycol (Miralax) 17 gm DAILY PO Last administered on 09/05/17at 08: 10; Start 08/18/17 at 09:00 Prednisone (Deltasone) 10 mg DAILY PO Last administered on 09/07/17at 08:16; Start 08/21/17 at 09:00 Magnesium Citrate (Citroma Liq) 300 ml ONCE ONCE PO Last administered on at 15:15; Start 08/21/17 at 13:15; Stop 08/21/17 at 13:16; Status DC Dextrose/Sodium Chloride 1,000 ml @ 75 mls/hr [id number] IV Last administered on 08/22/17at 17:07; Start 08/22/17 at 15:45; Stop 08/23/17 at 05:04; Status DC Dextrose/Sodium Chloride 1,000 ml @ 100 mls/hr Q10H IV Last administered on at 12:48; Start 08/24/17 at 14:00; Stop 08/25/17 at 09:59; Status DC Dextrose/Sodium Chloride 1,000 ml @ 100 mls/hr Q10H IV Last administered on at 23:14; Start 08/25/17 at 11:45; Stop 08/26/17 at 16:28; Status DC Sodium Chloride 250 ml @ 15 mls/hr ONCE ONCE IV Last administered on at 10:17; Start 08/28/17 at 06:15; Stop 08/28/17 at 22:54; Status DC Gadodiamide (Omniscan Pf Inj) 20 ml STK-MED ONCE IVCONTRAST Last administered on 08/28/17at 18:44; Start 08/28/17 at 18:42; Stop 08/28/17 at 18:43; Status DC Gabapentin (Neurontin) 300 mg TID PO Last administered on 09/01/17 08:10; Start 08/29/17 at 13:00; Stop 09/01/17 at 12:15; Status DC Iohexol (Omnipaque 350 Inj) 94 ml STK-MED ONCE IVCONTRAST Last administered on 08/29/17at 22:23; Start 08/29/17 at 22:23; Stop 08/29/17 at 22:24; Status DC Midazolam HCl (Versed Inj) 5 mg STK-MED ONCE .ROUTE Last administered on 15:16; Start 08/30/17 at 15:16; Stop 08/30/17 at 15:17; Status DC Fentanyl Citrate (fentaNYL INJ) 250 mcg STK-MED ONCE .ROUTE Last administered on 08/30/17 15:16; Start 08/30/17 at 15:16; Stop 08/30/17 at 15:17; Status DC Gabapentin (Neurontin) 600 mg TID PO Last administered on 09/06/17 13:00; Start 09/01/17 at 13:00; Stop 09/06/17 at 15:13; Status DC Enoxaparin Sodium (Lovenox Inj) 40 mg Q24H SQ Last administered on 09/06/17 15: 23; Start 09/02/17 at 16:00 Gabapentin (Neurontin) 600 mg BID PO Last administered on 09/07/17at 08:15; Start 09/06/17 at 21:00 A/P Problem List: (1) Osteomyelitis ICD Code: M86.9 - Osteomyelitis, unspecified Status: Acute (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 Osteomyelitis of the L5 vertebra/bilateral psoas muscle abscess/ bacteremia Status post CT-guided removal of fluid for culture as well as disc biopsy on 07/31. Appreciate neurosurgery, vascular surgery, infectious disease recommendations. Status post drainage of abscess on 08/14/17. Wound culture is negative. Mycobacterial and fungal cultures are pending. Bacteremia with Strep Anginosis. - Continue antibiotics per ID. - follow up with neurosurgery. Jennifer removed 08/26. - 08/28 as per neurosurgery recommendations the patient will need at least 6 weeks of IV antibiotics before procedure. Continue IV Rocephin. Follow-up repeat MRI. - 08/29 repeat MRI shows a persistence of fluid on the left. Persistent evidence of inflammatory process remains at the L4-5 disc. Discussed the case with Dr. Goldstein from ID who relayed to Dr. Sanchez will let her know if I recommend aspiration or any other procedures needed. We will start the patient on gabapentin for neuropathic pain at the lower back. - The patient status post needle aspiration CT-guided of spinal fluid collection. As per report the patient had 6 cc of serosanguineous, purulent fluid removed. Follow-up cultures. Antibiotics per ID. Continue IV Rocephin. - 09/01 the patient still complains of radicular pain and pain in the lower back. I will increase the dose of gabapentin from 300 mg p.o. 3 times daily to 600 mg p.o. 3 times daily. Continue pain control management as above. - 09/02 pain is better controlled. Continue pain control with gabapentin 600 mg p.o. 3 times a day, oxycodone as needed. -09/04 discussed the case with Dr. Goldstein from infectious disease. Recommend discontinuation of IV Rocephin every 12 hours. As per ID he stopped that cannot be provided. Patient is also not a safe discharge as he did drugs in the hospital. Will consult Dr. Felipe from neurosurgery to assess loculated fluid and timing of surgery for pain symptoms in back and legs.- NO SURGERY PER NEUROSURGERY 2. Encephalopathy Likely toxic secondary to drug abuse. S/P lumbar puncture. Evaluated by psychiatry, patient is capable of making decisions. - resolved. - Avoid overly sedating medications. 3. Cocaine abuse Urine toxicology positive for cocaine. There was concern that the patient may have used cocaine while in the hospital as his urine drug screen was positive 8 days after admission. - cessation instruction. -Visitors allowed again. 4. Right iliac artery aneurysm Patient noted to have a 2.9 cm aneurysm of the right internal iliac artery, possibly mycotic aneurysm. This was an incidental finding. He denies IV drug abuse. Appreciate vascular surgery recommendations. - No surgery planned at this time. 5. Chronic kidney disease stage II with acute kidney injury. Creatinine seems stable. - monitor and avoid nephrotoxins. 6. Hypoglycemia Episodes of low blood sugar into the 60s. Blood sugars more stable. - ADAT. Continue Ensure. - check an insulin level. Obtain abdominal US if elevated. 6/5 insulin level elevated at 72.2. Peptide, proinsulin, insulin antibody and obtain an abdominal ultrasound. The blood sugars are not associated with symptoms. 7. Anemia Seems chronic. - check Hemoccult. - follow CBC. Anemia likely multifactorial. Follow-up stool blood Hemoccult. -Hemoglobin stable. 8. Hypertension Blood pressure well controlled. -Clonidine discontinued - continue amlodipine. DVT prophylaxis: SCDs. Add Lovenox subcutaneously. Discharge Planning NOT CLEARED by ID FOR DISCHARGE Roly Loving DO Sep 07, 2017 13:29
[2017-09-07 16:00] VITALS: BP 132/68; PULSE 101; RESP 20; TEMP 97.9; O2SAT 99
[2017-09-07] MEDS: ENOXAPARIN SODIUM 40 MG/0.4 ML SYRINGE SQ SCH (17:22)
[2017-09-07 20:00] VITALS: BP 138/92; PULSE 101; RESP 20; O2SAT 98
[2017-09-08] VITALS: BP 142/91; PULSE 99; RESP 20; TEMP 97.5; O2SAT 96
[2017-09-08] MEDS: oxyCODONE/ACETAMINOPHEN 5 MG/325 MG TAB PO PRN ×4 (00:11→18:27)
[2017-09-08 07:33] LABS: AUTOMATED NEUTROPHIL # 4.1 TH/MM3 (1.8-7.7); BASOPHIL % 0.8 % (0.0-2.0); EOSINOPHIL # 0.3 TH/MM3 (0-0.4); EOSINOPHIL % 5.7 % (0.0-4.0); HEMATOCRIT 29.7 % (39.0-51.0); HEMOGLOBIN 9.3 GM/DL (13.0-17.0); LYMPH % 17.5 % (9.0-44.0); MEAN CELL VOLUME 92.6 FL (80.0-100.0); MEAN CORPUSCULAR HGB CONC 31.3 % (32.0-36.0); MEAN PLATELET VOLUME 8.1 FL (7.0-11.0); MONOCYTE # 0.4 TH/MM3 (0-0.9); PLATELET COUNT 143 TH/MM3 (150-450); RED CELL DISTRIBUTION WIDTH 17.5 % (11.6-17.2); WHITE BLOOD COUNT 5.9 TH/MM3 (4.0-11.0)
[2017-09-08 07:56] LABS: ALBUMIN 2.2 GM/DL (3.4-5.0); ALT (GPT) 29 U/L (12-78); AST (GOT) 49 U/L (15-37); BICARBONATE 25.8 MEQ/L (21.0-32.0); BLOOD UREA NITROGEN 33 MG/DL (7-18); CALCIUM 8.6 MG/DL (8.5-10.1); CHLORIDE 104 MEQ/L (98-107); CREATININE 1.55 MG/DL (0.60-1.30); GLOMERULAR FILTRATION RATE 57 ML/MIN (>89); GLUCOSE,RANDOM 104 MG/DL (74-106); PHOSPHORUS 3.4 MG/DL (2.5-4.9); SODIUM (NA) 139 MEQ/L (136-145)
[2017-09-08 07:58] LABS: ALKALINE PHOSPHATASE 254 U/L (45-117); TOTAL BILIRUBIN ADULT 0.3 MG/DL (0.2-1.0); TOTAL PROTEIN 8.8 GM/DL (6.4-8.2)
[2017-09-08 08:00] VITALS: BP 147/96; PULSE 97; RESP 19; TEMP 97.5; O2SAT 98
[2017-09-08] MEDS: LACTIC ACID (AMMONIUM LACTATE) 12% LOTION 225 GM BTL TOPICAL SCH ×4 (09:00→20:50)
[2017-09-08] MEDS: POLYETHYLENE GLYCOL 17 GM PKG PO SCH (09:00)
[2017-09-08] MEDS: DOCUSATE SODIUM 50 MG/SENNA 8.6 MG TAB PO SCH ×2 (09:00→20:45)
[2017-09-08] MEDS: predniSONE 10 MG TAB PO SCH (09:22)
[2017-09-08] MEDS: FAMOTIDINE 20 MG TAB PO SCH ×2 (09:22→20:45)
[2017-09-08] MEDS: SODIUM CHLORIDE 0.9% FLUSH 10 ML FLUSH IV FLUSH SCH ×2 (09:22→20:46)
[2017-09-08] MEDS: GABAPENTIN 300 MG CAP PO SCH ×2 (09:22→20:45)
--- NOTE | 2017-09-08 10:17 | HHI.PR ---
Subjective Remarks 6-6 No new complaints at this time Discussed with RN and patient and case management Continue antibiotics per infectious disease Has not been cleared for discharge 6-7 NO NEW COMPLAINTS- HAS PAIN IN RIGHT PSOAS AREA ON AND OFF SEEN BY NEUROSURGERY [facility] RN AND PT AND CM 6-8 no current complaints Still has some pain on and off in the right psoas region Continue current antibiotic Not cleared for discharge 6-9 NO NEW COMPLAINTS PATIENT DOING PERSONAL HYGIENE TODAY [facility] RN AND PT AND CM Objective Vitals Vital Signs Date Time Temp Pulse Resp B/P (MAP) Pulse Ox O2 Delivery O2 Flow Rate FiO2 09/08/17 08:00 97.5 97 19 147/96 (113) 98 09/08/17 00:00 97.5 99 20 142/91 (108) 96 09/07/17 20:00 101 20 138/92 (107) 98 09/07/17 16:00 97.9 101 20 132/68 (89) 99 09/07/17 12:00 97.4 99 20 128/87 (101) 100 I/O 09/07/17 09/07/17 09/07/17 09/08/17 09/08/17 09/08/17 07:00 15:00 23:00 07:00 15:00 23:00 Intake Total 480 ml 100 ml 100 ml 960 ml Output Total 1000 ml 750 ml 200 ml 1200 ml Balance -520 ml -650 ml -100 ml -240 ml Intake Oral 480 ml 960 ml IV Total 100 ml 100 ml Output Urine Total 1000 ml 750 ml 200 ml 1200 ml Result Diagram: 09/08/17 0522 09/08/17 0522 Other Results Laboratory Tests Test 09/06/17 05:49 09/08/17 05:22 White Blood Count 6.2 TH/MM3 5.9 TH/MM3 Red Blood Count 2.84 MIL/MM3 3.20 MIL/MM3 Hemoglobin 8.2 GM/DL 9.3 GM/DL Hematocrit 26.0 % 29.7 % Mean Corpuscular Volume 91.6 FL 92.6 FL Mean Corpuscular Hemoglobin 28.9 PG 29.0 PG Mean Corpuscular Hemoglobin Concent 31.5 % 31.3 % Red Cell Distribution Width 17.3 % 17.5 % Platelet Count 142 TH/MM3 143 TH/MM3 Mean Platelet Volume 7.9 FL 8.1 FL Neutrophils (%) (Auto) 70.1 % 69.0 % Lymphocytes (%) (Auto) 13.8 % 17.5 % Monocytes (%) (Auto) 10.5 % 7.0 % Eosinophils (%) (Auto) 4.6 % 5.7 % Basophils (%) (Auto) 1.0 % 0.8 % Neutrophils # (Auto) 4.3 TH/MM3 4.1 TH/MM3 Lymphocytes # (Auto) 0.8 TH/MM3 1.0 TH/MM3 Monocytes # (Auto) 0.6 TH/MM3 0.4 TH/MM3 Eosinophils # (Auto) 0.3 TH/MM3 0.3 TH/MM3 Basophils # (Auto) 0.1 TH/MM3 0.0 TH/MM3 CBC Comment DIFF FINAL DIFF FINAL Differential Comment Blood Urea Nitrogen 37 MG/DL 33 MG/DL Creatinine 1.62 MG/DL 1.55 MG/DL Random Glucose 71 MG/DL 104 MG/DL Total Protein 7.8 GM/DL 8.8 GM/DL Albumin 1.9 GM/DL 2.2 GM/DL Calcium Level 8.0 MG/DL 8.6 MG/DL Phosphorus Level 3.3 MG/DL 3.4 MG/DL Magnesium Level 1.9 MG/DL 2.0 MG/DL Alkaline Phosphatase 221 U/L 254 U/L Aspartate Amino Transf (AST/SGOT) 40 U/L 49 U/L Alanine Aminotransferase (ALT/SGPT) 25 U/L 29 U/L Total Bilirubin 0.2 MG/DL 0.3 MG/DL Sodium Level 141 MEQ/L 139 MEQ/L Potassium Level 5.1 MEQ/L 4.9 MEQ/L Chloride Level 107 MEQ/L 104 MEQ/L Carbon Dioxide Level 25.6 MEQ/L 25.8 MEQ/L Anion Gap 8 MEQ/L 9 MEQ/L Estimat Glomerular Filtration Rate 54 ML/MIN 57 ML/MIN Hemoglobin A1c 4.1 % Free Thyroxine 0.58 NG/DL Thyroid Stimulating Hormone 3rd Gen 2.600 uIU/ML Imaging Last Impressions Needle Aspiration CT 08/30/17 1356 Signed Impressions: CONCLUSION: 1. Uncomplicated procedure as above. Lumbar Spine CT 08/29/17 0000 Signed Impressions: CONCLUSION: 1. There is destructive changes involving the disc space at L4-5 characteristi c for discitis. 2. There are destructive changes predominantly in the body of L5 consistent wi th osteomyelitis. There is prominent paraspinal soft tissue swelling at the L4- L5 level. 3. Mild grade 1 anterior spondylolisthesis of L4 over L5. 4. Limited visualization of the spinal canal at L4-5 due to the inflammatory c hanges. 5. Bilateral facet arthritis at multiple levels. 6. Broad-based bulging at L2-3 and L3-4. Lumbar Spine MRI 08/28/17 0000 Signed Impressions: CONCLUSION: 1. Improvement as above. Persistent fluid remains on the left. Persistent evid ence for inflammatory process remains at the L4-5 disc. 2. Less inflammatory changes in the retroperitoneum. Chest X-Ray 08/15/17 0000 Signed Impressions: Service Date/Time: Tuesday, August 15, 2017 11:34 - CONCLUSION: Mild compensated cardiomegaly Roly Reina MD FACR Lumbar Puncture Fluoroscopy 08/08/17 0000 Signed Impressions: Service Date/Time: Tuesday, August 08, 2017 15:42 - CONCLUSION: Uncomplicated fluoroscopically guided lumbar puncture. Fady Chan MD Needle Biopsy/Aspiration X-Ray 07/31/17 0000 Signed Impressions: Service Date/Time: Monday, July 31, 2017 13:29 - CONCLUSION: Uncomplicated needle biopsy of the L4/L5 disc space as above. Candelario Reina MD Abdomen/Pelvis CT 07/29/17 0000 Signed Impressions: Service Date/Time: Saturday, July 29, 2017 22:14 - CONCLUSION: 1. Significant new prevertebral soft tissue fullness and stranding centered at the L5 level. There is associated sclerosis and erosive changes in the anterior L5 vertebral body which appear unchanged from recent exams. Overall, findings are concerning for discitis and osteomyelitis. Consider repeat MRI examination for further evaluation. 2. 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 However, evaluation is significantly limited due to lack of IV contrast on this exam. This was not present on remote prior CT exam. A mycotic aneurysm cannot be entirely excluded. Contrast enhanced examination would be greatly beneficial in further evaluation. 3. Nodular appearing liver contour consistent with cirrhosis. 4. IVC filter in place. 5. Cholelithiasis. Tanner Jones MD Objective Remarks GENERAL: Awake alert and oriented 3 talkative and cooperative-- tends to mumble when he speaks SKIN: Warm and dry. HEAD: Atraumatic. Normocephalic. EYES: Pupils equal and round. No scleral icterus. No injection or drainage. Extraocular muscles intact ENT: No nasal bleeding or discharge. Mucous membranes pink and moist. Tongue is midline NECK: Trachea midline. No JVD. Supple CARDIOVASCULAR: Regular rate and rhythm. S1-S2 no S3 or S4 RESPIRATORY: No accessory muscle use. Clear to auscultation. Breath sounds equal bilaterally. GASTROINTESTINAL: Abdomen soft, non-tender, nondistended. Hepatic and splenic margins not palpable. MUSCULOSKELETAL: Extremities without clubbing, cyanosis, or edema. No obvious deformities. NEUROLOGICAL: Awake and alert. No obvious cranial nerve deficits. Motor grossly within normal limits. 4 out of 5 muscle strength in the arms and legs. Normal speech. PSYCHIATRIC: Appropriate mood and affect; insight and judgment normal. Procedures 08/14/17 lateral oblique approach for drainage of lumbar retroperitoneal and bilateral psoas muscle abscess Medications and IVs Current Medications Sodium Chloride (NS Flush) 2 ml UNSCH PRN IV FLUSH FLUSH AFTER USING IV ACCESS ; Start 07/29/17 at 20:15; Stop 07/31/17 at 22:18; Status DC Morphine Sulfate (Morphine Inj) 4 mg ONCE ONCE IV PUSH Last administered on at 20:42; Start 07/29/17 at 20:15; Stop 07/29/17 at 20:16; Status DC Dexamethasone Sodium Phosphate (Decadron Inj) 8 mg ONCE ONCE IV PUSH Last administered on 07/29/17at 20:42; Start 07/29/17 at 20:15; Stop 07/29/17 at 20:16 ; Status DC Sodium Chloride 1,000 ml @ 999 mls/hr BOLUS ONCE IV Last administered on 07/29at 23:26; Start 07/29/17 at 21:45; Stop 07/29/17 at 22:45; Status DC Ceftriaxone Sodium 2000 mg/ Sodium Chloride 100 ml @ 200 mls/hr ONCE ONCE IV Last administered on 07/29/17at 23:26; Start 07/29/17 at 23:00; Stop 07/29/17 at 23:29; Status DC Vancomycin HCl 1000 mg/Sodium Chloride 250 ml @ 250 mls/hr ONCE ONCE IV ; Start 07/29/17 at 23:00; Stop 07/29/17 at 23:59; Status Cancel Pharmacy Profile Note 0 ml @ 0 mls/hr UNSCH OTHER ; Start 07/29/17 at 23:15; Stop 08/06/17 at 14:40; Status DC Cefepime HCl 1000 mg/Sodium Chloride 100 ml @ 200 mls/hr Q12H IV Last administered on 08/01/17at 21:37; Start 07/30/17 at 09:00; Stop 08/02/17 at 06:53; Status DC Sodium Chloride 1,000 ml @ 70 mls/hr [id number] IV Last administered on at 02:34; Start 07/29/17 at 23:01; Stop 08/21/17 at 13:04; Status DC Sodium Chloride (NS Flush) 2 ml UNSCH PRN IV FLUSH FLUSH AFTER USING IV ACCESS Last administered on 09/05/17at 12:06; Start 07/29/17 at 23:15 Sodium Chloride (NS Flush) 2 ml BID IV FLUSH Last administered on 09/08/17at 09: 22; Start 07/30/17 at 09:00 Ondansetron HCl (Zofran Inj) 4 mg Q6H PRN IVP NAUSEA OR VOMITING; Start at 23:15 Acetaminophen (Tylenol) 650 mg Q6H PRN PO FEVER/PAIN SCALE 1 TO 2 Last administered on 08/15/17at 07:38; Start 07/29/17 at 23:15 Morphine Sulfate (Morphine Inj) 2 mg Q3H PRN IV PUSH Pain 6-10; Start 07/29/17 at 23:15; Stop 07/30/17 at 20:43; Status DC Oxycodone HCl (Roxicodone) 5 mg Q4H PRN PO PAIN SCALE 3 TO 5 Last administered on 08/01/17at 05:48; Start 07/29/17 at 23:15; Stop 08/01/17 at 08:56; Status DC Senna/Docusate Sodium (Emilie-Colace) 1 tab BID PO Last administered on 09/07/17at 20:11; Start 07/30/17 at 09:00 Magnesium Hydroxide (Milk Of Magnesia Liq) 30 ml Q12H PRN PO Mild constipation ; Start 07/29/17 at 23:15 Sennosides (Senokot) 17.2 mg Q12H PRN PO Moderate constipation; Start 07/29/17 at 23:15 Bisacodyl (Dulcolax Supp) 10 mg DAILY PRN RECTAL SEVERE CONSITIPATION/ IF NPO ; Start 07/29/17 at 23:15 Lactulose (Lactulose Liq) 30 ml DAILY PRN PO SEVERE CONSITIPATION/ IF PO Last administered on 08/19/17at 13:55; Start 07/29/17 at 23:15 Lorazepam (Ativan Inj) 1 mg Q2H PRN IV PUSH AGITATION/WITHDRAWAL Last administered on 08/14/17 19:10; Start 07/29/17 at 23:15; Stop 08/24/17 at 13:35 ; Status DC Vancomycin/Sodium Chloride 200 ml @ 200 mls/hr ONCE ONCE IV Last administered on 07/29/17at 23:55; Start 07/30/17 at 00:00; Stop 07/30/17 at 00:59 ; Status DC Vancomycin HCl 1000 mg/Sodium Chloride 250 ml @ 250 mls/hr ONCE ONCE IV Last administered on 07/30/17at 12:08; Start 07/30/17 at 12:00; Stop 07/30/17 at 12:59 ; Status DC Morphine Sulfate (Morphine Inj) 2 mg Q3H PRN IV PUSH Pain 6-10 Last administered on 08/01/17at 01:54; Start 07/30/17 at 20:45; Stop 08/01/17 at 08:56; Status DC Vancomycin HCl 1500 mg/Sodium Chloride 515 ml @ 257.5 mls/ hr ONCE ONCE IV Last administered on 07/31/17at 18:19; Start 07/31/17 at 18:00; Stop 07/31/17 at 19: 59; Status DC Fentanyl Citrate (fentaNYL INJ) 100 mcg STK-MED ONCE .ROUTE Last administered on 07/31/17at 13:09; Start 07/31/17 at 13:09; Stop 07/31/17 at 13:10; Status DC Midazolam HCl (Versed Inj) 2 mg STK-MED ONCE .ROUTE Last administered on at 13:09; Start 07/31/17 at 13:09; Stop 07/31/17 at 13:10; Status DC Sodium Bicarbonate 50 ml @ As Directed STK-MED ONCE .ROUTE Last administered on 07/31/17at 13:33; Start 07/31/17 at 13:33; Stop 07/31/17 at 13:34; Status DC Oxycodone HCl (Roxicodone) 5 mg ONCE ONCE PO Last administered on 07/31/17at 22: 40; Start 07/31/17 at 22:15; Stop 07/31/17 at 22:18; Status DC Oxycodone/ Acetaminophen (Percocet 10-325 Mg) 1 tab Q4H PRN PO PAIN SCALE 4 TO 10 Last administered on 08/06/17at 05:36; Start 08/01/17 at 09:00; Stop 08/09/17 at 09:39; Status DC Hydromorphone HCl (Dilaudid Pf Inj) 0.5 mg Q4H PRN IV PUSH BREAKTHROUGH PAIN Last administered on 08/14/17at 13:21; Start 08/01/17 at 09:00; Stop 08/14/17 at 19:29; Status DC Ceftriaxone Sodium 2000 mg/ Sodium Chloride 100 ml @ 200 mls/hr Q12H IV ; Start 08/02/17 at 08:00; Stop 08/02/17 at 11:59; Status DC Ceftriaxone Sodium 2000 mg/ Sodium Chloride 100 ml @ 200 mls/hr Q12H IV Last administered on 08/02/17at 23:39; Start 08/02/17 at 12:00; Stop 08/03/17 at 16:10; Status DC Vancomycin HCl 2000 mg/Sodium Chloride 520 ml @ 250 mls/hr ONCE ONCE IV Last administered on 08/02/17at 14:50; Start 08/02/17 at 14:00; Stop 08/02/17 at 16:04; Status DC Calcium Carbonate (Tums Chew) 500 mg Q2H PRN CHEW indigestion Last administered on 08/05/17at 13:49; Start 08/02/17 at 19:30 Clonidine (Catapres) 0.1 mg ONCE ONCE PO Last administered on 08/03/17at 05:07; Start 08/03/17 at 04:45; Stop 08/03/17 at 04:47; Status DC Ceftriaxone Sodium 2000 mg/ Sodium Chloride 100 ml @ 200 mls/hr Q12H IV Last administered on 09/07/17at 20:12; Start 08/03/17 at 17:00 Vancomycin HCl 1750 mg/Sodium Chloride 517.5 ml @ 257.5 mls/ hr ONCE ONCE IV Last administered on 08/04/17at 14:07; Start 08/04/17 at 14:00; Stop 08/04/17 at 16: 00; Status DC Clonidine (Catapres) 0.1 mg Q6H PRN PO SYS BP GREATER THAN 165 MMHG Last administered on 08/06/17at 23:44; Start 08/04/17 at 15:30 Lactic Acid (Lac-Hydrin 12% Lotion) 1 applic BID TOPICAL Last administered on at 09:25; Start 08/04/17 at 21:00 Clonidine (Catapres) 0.1 mg ONCE ONCE PO Last administered on 08/05/17at 05:10; Start 08/05/17 at 04:45; Stop 08/05/17 at 04:46; Status DC Famotidine (Pepcid) 20 mg BID PO Last administered on 09/08/17at 09:22; Start 08/05/17 at 21:00 Clonidine (Catapres) 0.1 mg ONCE ONCE PO Last administered on 08/06/17at 06:45; Start 08/06/17 at 06:45; Stop 08/06/17 at 06:46; Status DC Vancomycin HCl 1750 mg/Sodium Chloride 517.5 ml @ 257.5 mls/ hr ONCE ONCE IV Last administered on 08/06/17at 14:05; Start 08/06/17 at 13:00; Stop 08/06/17 at 14: 40; Status DC Hydralazine HCl (Apresoline Inj) 10 mg Q4H PRN IV PUSH SBP > 165; Start at 10:00; Stop 08/06/17 at 11:01; Status DC Amlodipine Besylate (Norvasc) 10 mg DAILY PO Last administered on 09/08/17at 09: 22; Start 08/06/17 at 11:00 Enalaprilat (Vasotec Inj) 2.5 mg Q6H PRN IV PUSH SBP > 165 Last administered on 09/01/17at 08:10; Start 08/06/17 at 11:00 Oxycodone/ Acetaminophen (Percocet 5-325 Mg) 1 tab Q6H PRN PO PAIN 4-10 Last administered on 08/09/17at 08:14; Start 08/08/17 at 08:45; Stop 08/09/17 at 09:28 ; Status DC Gadodiamide (Omniscan Pf Inj) 20 ml STK-MED ONCE IVCONTRAST Last administered on 08/08/17at 14:30; Start 08/08/17 at 14:30; Stop 08/08/17 at 14:31; Status DC Oxycodone/ Acetaminophen (Percocet 5-325 Mg) 1 tab Q4HR PRN PO PAIN 4-10 Last administered on 09/08/17at 09:22; Start 08/09/17 at 10:00 Zolpidem Tartrate (Ambien) 5 mg ONCE ONCE PO Last administered on 08/13/17at 01 :45; Start 08/13/17 at 01:45; Stop 08/13/17 at 01:46; Status DC Acetaminophen 100 ml @ As Directed STK-MED ONCE IV ; Start 08/14/17 at 12:50; Stop 08/14/17 at 12:51; Status DC Artificial Tears (Lacrilube Opht Oint) 3.5 applic STK-MED ONCE .ROUTE ; Start at 12:50; Stop 08/14/17 at 12:51; Status DC Artificial Tears (Lacrilube Opht Oint) 3.5 applic STK-MED ONCE .ROUTE ; Start at 13:52; Stop 08/14/17 at 13:53; Status DC Lidocaine/ Epinephrine (Xylocaine-Epi 1%-1:100,000 Inj) 20 ml STK-MED ONCE .ROUTE ; Start 08/14/17 at 14:41; Stop 08/14/17 at 14:42; Status DC Thrombin (Thrombin Top Soln) 10,000 units STK-MED ONCE .ROUTE Last administered on 08/14/17at 17:53; Start 08/14/17 at 14:41; Stop 08/14/17 at 14:42 ; Status DC Gelatin (Gelfoam 100 Top) 1 foam STK-MED ONCE .ROUTE Last administered on at 17:53; Start 08/14/17 at 14:41; Stop 08/14/17 at 14:42; Status DC Gentamicin Sulfate (Gentamicin Inj) 240 mg STK-MED ONCE .ROUTE ; Start 08/14/17 at 14:42; Stop 08/14/17 at 14:43; Status DC Ceftriaxone Sodium (Rocephin Inj) 1,000 mg STK-MED ONCE .ROUTE Last administered on 08/14/17 17:20; Start 08/14/17 at 17:00; Stop 08/14/17 at 17:01 ; Status DC Ceftriaxone Sodium (Rocephin Inj) 1,000 mg STK-MED ONCE .ROUTE Last administered on 08/14/17 17:20; Start 08/14/17 at 17:01; Stop 08/14/17 at 17:02 ; Status DC Meperidine HCl (*DEMEROL INJ PERIprocedural ONLY) 25 mg STK-MED ONCE .ROUTE Last administered on 08/14/17at 18:49; Start 08/14/17 at 18:49; Stop 08/14/17 at 18:50; Status DC Hydromorphone HCl (*DILAUDID PF INJ PERIprocedure ONLY) 0.5 mg STK-MED ONCE .ROUTE Last administered on 08/14/17at 18:49; Start 08/14/17 at 18:49; Stop at 18:50; Status DC Midazolam HCl (Versed Inj) 2 mg STK-MED ONCE .ROUTE ; Start 08/14/17 at 18:53; Stop 08/14/17 at 18:54; Status DC Fentanyl Citrate (fentaNYL INJ) 200 mcg STK-MED ONCE .ROUTE ; Start 08/14/17 at 18:53; Stop 08/14/17 at 18:54; Status DC Morphine Sulfate (*morphine INJ PERIprocedure ONLY) 10 mg STK-MED ONCE .ROUTE Last administered on 08/14/17at 19:11; Start 08/14/17 at 19:11; Stop 08/14/17 at 19:12; Status DC Hydromorphone HCl (Dilaudid Pf Inj) 1 mg Q4H PRN IV PUSH BREAKTHROUGH PAIN Last administered on 08/17/17at 07:46; Start 08/14/17 at 21:00; Stop 08/24/17 at 13:33; Status DC Hydromorphone HCl (Dilaudid Pf Inj) 0.5 mg Q3H PRN IV PUSH Pain 3-5; if unable to take PO; Start 08/14/17 at 19:30; Stop 08/22/17 at 15:54; Status DC Naloxone HCl (Narcan Inj) 0.4 mg UNSCH PRN IV PUSH SEE LABEL COMMENTS; Start at 19:30 Miscellaneous Information ([facility] [place] [facility]) ALL NURSING DEPARTME... UNSCH PRN .XX SEE LABEL COMMENTS; Start 08/14/17 at 20:00; Stop 08/15/17 at 19: 59; Status DC Albuterol Sulfate (Proair Hfa Inh) 2 puff Q4H PRN INH SHORTNESS OF BREATH; Start 08/14/17 at 20:30 Amlodipine Besylate (Norvasc) 10 mg DAILY PO ; Start 08/15/17 at 09:00; Stop at 14:31; Status DC Clonidine (Catapres) 0.1 mg DAILY PO Last administered on 08/24/17at 07:58; Start 08/15/17 at 09:00; Stop 08/24/17 at 13:35; Status DC Cyclobenzaprine HCl (Flexeril) 5 mg TID PRN PO SPASM Last administered on at 06:16; Start 08/14/17 at 20:30 Lactic Acid (Lac-Hydrin 12% Lotion) 1 applic BID TOPICAL Last administered on at 20:12; Start 08/17/17 at 11:00 Polyethylene Glycol (Miralax) 17 gm DAILY PO Last administered on 09/05/17at 08: 10; Start 08/18/17 at 09:00 Prednisone (Deltasone) 10 mg DAILY PO Last administered on 09/08/17at 09:22; Start 08/21/17 at 09:00 Magnesium Citrate (Citroma Liq) 300 ml ONCE ONCE PO Last administered on at 15:15; Start 08/21/17 at 13:15; Stop 08/21/17 at 13:16; Status DC Dextrose/Sodium Chloride 1,000 ml @ 75 mls/hr [id number] IV Last administered on 08/22/17at 17:07; Start 08/22/17 at 15:45; Stop 08/23/17 at 05:04; Status DC Dextrose/Sodium Chloride 1,000 ml @ 100 mls/hr Q10H IV Last administered on at 12:48; Start 08/24/17 at 14:00; Stop 08/25/17 at 09:59; Status DC Dextrose/Sodium Chloride 1,000 ml @ 100 mls/hr Q10H IV Last administered on at 23:14; Start 08/25/17 at 11:45; Stop 08/26/17 at 16:28; Status DC Sodium Chloride 250 ml @ 15 mls/hr ONCE ONCE IV Last administered on at 10:17; Start 08/28/17 at 06:15; Stop 08/28/17 at 22:54; Status DC Gadodiamide (Omniscan Pf Inj) 20 ml STK-MED ONCE IVCONTRAST Last administered on 08/28/17at 18:44; Start 08/28/17 at 18:42; Stop 08/28/17 at 18:43; Status DC Gabapentin (Neurontin) 300 mg TID PO Last administered on 09/01/17at 08:10; Start 08/29/17 at 13:00; Stop 09/01/17 at 12:15; Status DC Iohexol (Omnipaque 350 Inj) 94 ml STK-MED ONCE IVCONTRAST Last administered on 08/29/17at 22:23; Start 08/29/17 at 22:23; Stop 08/29/17 at 22:24; Status DC Midazolam HCl (Versed Inj) 5 mg STK-MED ONCE .ROUTE Last administered on 15:16; Start 08/30/17 at 15:16; Stop 08/30/17 at 15:17; Status DC Fentanyl Citrate (fentaNYL INJ) 250 mcg STK-MED ONCE .ROUTE Last administered on 08/30/17 15:16; Start 08/30/17 at 15:16; Stop 08/30/17 at 15:17; Status DC Gabapentin (Neurontin) 600 mg TID PO Last administered on 09/06/17at 13:00; Start 09/01/17 at 13:00; Stop 09/06/17 at 15:13; Status DC Enoxaparin Sodium (Lovenox Inj) 40 mg Q24H SQ Last administered on 09/07/17at 17: 22; Start 09/02/17 at 16:00 Gabapentin (Neurontin) 600 mg BID PO Last administered on 09/08/17at 09:22; Start 09/06/17 at 21:00 A/P Problem List: (1) Osteomyelitis ICD Code: M86.9 - Osteomyelitis, unspecified Status: Acute (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 Osteomyelitis of the L5 vertebra/bilateral psoas muscle abscess/ bacteremia Status post CT-guided removal of fluid for culture as well as disc biopsy on 07/31. Appreciate neurosurgery, vascular surgery, infectious disease recommendations. Status post drainage of abscess on 08/14/17. Wound culture is negative. Mycobacterial and fungal cultures are pending. Bacteremia with Strep Anginosis. - Continue antibiotics per ID. - follow up with neurosurgery. [place] removed 08/26. - 08/28 as per neurosurgery recommendations the patient will need at least 6 weeks of IV antibiotics before procedure. Continue IV Rocephin. Follow-up repeat MRI. - 08/29 repeat MRI shows a persistence of fluid on the left. Persistent evidence of inflammatory process remains at the L4-5 disc. Discussed the case with Dr. Goldstein from ID who relayed to Dr. Sanchez will let her know if I recommend aspiration or any other procedures needed. We will start the patient on gabapentin for neuropathic pain at the lower back. - The patient status post needle aspiration CT-guided of spinal fluid collection. As per report the patient had 6 cc of serosanguineous, purulent fluid removed. Follow-up cultures. Antibiotics per ID. Continue IV Rocephin. - 09/01 the patient still complains of radicular pain and pain in the lower back. I will increase the dose of gabapentin from 300 mg p.o. 3 times daily to 600 mg p.o. 3 times daily. Continue pain control management as above. - 6/3 pain is better controlled. Continue pain control with gabapentin 600 mg p.o. 3 times a day, oxycodone as needed. -09/04 discussed the case with Dr. Goldstein from infectious disease. Recommend discontinuation of IV Rocephin every 12 hours. As per ID he stopped that cannot be provided. Patient is also not a safe discharge as he did drugs in the hospital. Will consult Dr. Felipe from neurosurgery to assess loculated fluid and timing of surgery for pain symptoms in back and legs.- NO SURGERY PER NEUROSURGERY 2. Encephalopathy Likely toxic secondary to drug abuse. S/P lumbar puncture. Evaluated by psychiatry, patient is capable of making decisions. - resolved. - Avoid overly sedating medications. 3. Cocaine abuse Urine toxicology positive for cocaine. There was concern that the patient may have used cocaine while in the hospital as his urine drug screen was positive 8 days after admission. - cessation instruction. -Visitors allowed again. 4. Right iliac artery aneurysm Patient noted to have a 2.9 cm aneurysm of the right internal iliac artery, possibly mycotic aneurysm. This was an incidental finding. He denies IV drug abuse. Appreciate vascular surgery recommendations. - No surgery planned at this time. 5. Chronic kidney disease stage II with acute kidney injury. Creatinine seems stable. - monitor and avoid nephrotoxins. 6. Hypoglycemia Episodes of low blood sugar into the 60s. Blood sugars more stable. - ADAT. Continue Ensure. - check an insulin level. Obtain abdominal US if elevated. 6/ insulin level elevated at 72.2. Peptide, proinsulin, insulin antibody and obtain an abdominal ultrasound. The blood sugars are not associated with symptoms. 7. Anemia Seems chronic. - check Hemoccult. - follow CBC. Anemia likely multifactorial. Follow-up stool blood Hemoccult. -Hemoglobin stable. 8. Hypertension Blood pressure well controlled. -Clonidine discontinued - continue amlodipine. DVT prophylaxis: SCDs. Add Lovenox subcutaneously. Discharge Planning NOT CLEARED by ID FOR DISCHARGE Roly Loving DO Sep 08, 2017 10:17
[2017-09-08] MEDS: cefTRIAXone INJ 2,000 MG in SODIUM CHLORIDE 0.9% INJ 100 ML IV SCH ×2 (10:30→20:47)
[2017-09-08 12:00] VITALS: BP 145/90; PULSE 101; RESP 17; TEMP 97.5; O2SAT 95
[2017-09-08 16:00] VITALS: BP 146/89; PULSE 97; RESP 16; TEMP 98.3; O2SAT 93
[2017-09-08] MEDS: ENOXAPARIN SODIUM 40 MG/0.4 ML SYRINGE SQ SCH (18:28)
[2017-09-08 20:00] VITALS: BP 136/84; PULSE 101; RESP 18; TEMP 97.7; O2SAT 98
[2017-09-09] VITALS: BP 164/104; PULSE 96; RESP 18; TEMP 98; O2SAT 99
[2017-09-09] MEDS: ENALAPRILAT 2.5 MG/2 ML VIAL IV PUSH PRN (00:39)
[2017-09-09] MEDS: oxyCODONE/ACETAMINOPHEN 5 MG/325 MG TAB PO PRN ×4 (01:41→17:32)
[2017-09-09 04:00] VITALS: BP 119/73; PULSE 97; RESP 18; TEMP 98; O2SAT 93
[2017-09-09] MEDS: CYCLOBENZAPRINE HCL 10 MG TAB PO PRN ×3 (04:02→20:10)
[2017-09-09 08:00] VITALS: BP 134/88; PULSE 98; RESP 18; TEMP 97.9; O2SAT 97
[2017-09-09] MEDS: GABAPENTIN 300 MG CAP PO SCH ×2 (08:15→20:10)
[2017-09-09] MEDS: POLYETHYLENE GLYCOL 17 GM PKG PO SCH (08:15)
[2017-09-09] MEDS: SODIUM CHLORIDE 0.9% FLUSH 10 ML FLUSH IV FLUSH SCH ×2 (08:15→20:10)
[2017-09-09] MEDS: predniSONE 10 MG TAB PO SCH (08:15)
[2017-09-09] MEDS: DOCUSATE SODIUM 50 MG/SENNA 8.6 MG TAB PO SCH ×2 (08:15→20:10)
[2017-09-09] MEDS: FAMOTIDINE 20 MG TAB PO SCH ×2 (08:15→20:10)
[2017-09-09] MEDS: LACTIC ACID (AMMONIUM LACTATE) 12% LOTION 225 GM BTL TOPICAL SCH ×4 (08:16→20:13)
[2017-09-09] MEDS: cefTRIAXone INJ 2,000 MG in SODIUM CHLORIDE 0.9% INJ 100 ML IV SCH ×2 (11:01→20:10)
--- NOTE | 2017-09-09 11:43 | HHI.PR ---
Subjective Remarks 6-6 No new complaints at this time Discussed with RN and patient and case management Continue antibiotics per infectious disease Has not been cleared for discharge 6-7 NO NEW COMPLAINTS- HAS PAIN IN RIGHT PSOAS AREA ON AND OFF SEEN BY NEUROSURGERY DW RN AND PT AND CM 6-8 no current complaints Still has some pain on and off in the right psoas region Continue current antibiotic Not cleared for discharge 6-9 NO NEW COMPLAINTS PATIENT DOING PERSONAL HYGIENE TODAY DW RN AND PT AND CM 6-10 NO NEW COMPLAINTS DW RN AND PATIENT AWAIT ID CLEARANCE Objective Vitals Vital Signs Date Time Temp Pulse Resp B/P (MAP) Pulse Ox O2 Delivery O2 Flow Rate FiO2 09/09/17 08:00 97.9 98 18 134/88 (103) 97 Arterial Line 09/09/17 04:00 98.0 97 18 119/73 (88) 93 09/09/17 00:00 98.0 96 18 164/104 (124) 99 09/08/17 20:00 97.7 101 18 136/84 (101) 98 09/08/17 16:00 98.3 97 16 146/89 (108) 93 09/08/17 12:00 97.5 101 17 145/90 (108) 95 I/O 09/08/17 09/08/17 09/08/17 09/09/17 09/09/17 09/09/17 06:59 14:59 22:59 06:59 14:59 22:59 Intake Total 960 ml 695 ml Output Total 1200 ml 2310 ml 1020 ml Balance -240 ml -1615 ml -1020 ml Intake Oral 960 ml 595 ml IV Total 100 ml Output Urine Total 1200 ml 2310 ml 1020 ml # Bowel Movements 1 Result Diagram: 09/08/1752109/08/17521 Other Results Laboratory Tests Test 09/08/17 05:22 White Blood Count 5.9 TH/MM3 Red Blood Count 3.20 MIL/MM3 Hemoglobin 9.3 GM/DL Hematocrit 29.7 % Mean Corpuscular Volume 92.6 FL Mean Corpuscular Hemoglobin 29.0 PG Mean Corpuscular Hemoglobin Concent 31.3 % Red Cell Distribution Width 17.5 % Platelet Count 143 TH/MM3 Mean Platelet Volume 8.1 FL Neutrophils (%) (Auto) 69.0 % Lymphocytes (%) (Auto) 17.5 % Monocytes (%) (Auto) 7.0 % Eosinophils (%) (Auto) 5.7 % Basophils (%) (Auto) 0.8 % Neutrophils # (Auto) 4.1 TH/MM3 Lymphocytes # (Auto) 1.0 TH/MM3 Monocytes # (Auto) 0.4 TH/MM3 Eosinophils # (Auto) 0.3 TH/MM3 Basophils # (Auto) 0.0 TH/MM3 CBC Comment DIFF FINAL Differential Comment Blood Urea Nitrogen 33 MG/DL Creatinine 1.55 MG/DL Random Glucose 104 MG/DL Total Protein 8.8 GM/DL Albumin 2.2 GM/DL Calcium Level 8.6 MG/DL Phosphorus Level 3.4 MG/DL Magnesium Level 2.0 MG/DL Alkaline Phosphatase 254 U/L Aspartate Amino Transf (AST/SGOT) 49 U/L Alanine Aminotransferase (ALT/SGPT) 29 U/L Total Bilirubin 0.3 MG/DL Sodium Level 139 MEQ/L Potassium Level 4.9 MEQ/L Chloride Level 104 MEQ/L Carbon Dioxide Level 25.8 MEQ/L Anion Gap 9 MEQ/L Estimat Glomerular Filtration Rate 57 ML/MIN Imaging Last Impressions Needle Aspiration CT 08/30/17 1356 Signed Impressions: CONCLUSION: 1. Uncomplicated procedure as above. Lumbar Spine CT 08/29/17 0000 Signed Impressions: CONCLUSION: 1. There is destructive changes involving the disc space at L4-5 characteristi c for discitis. 2. There are destructive changes predominantly in the body of L5 consistent wi th osteomyelitis. There is prominent paraspinal soft tissue swelling at the L4- L5 level. 3. Mild grade 1 anterior spondylolisthesis of L4 over L5. 4. Limited visualization of the spinal canal at L4-5 due to the inflammatory c hanges. 5. Bilateral facet arthritis at multiple levels. 6. Broad-based bulging at L2-3 and L3-4. Lumbar Spine MRI 08/28/17 0000 Signed Impressions: CONCLUSION: 1. Improvement as above. Persistent fluid remains on the left. Persistent evid ence for inflammatory process remains at the L4-5 disc. 2. Less inflammatory changes in the retroperitoneum. Chest X-Ray 08/15/17 0000 Signed Impressions: Service Date/Time: Tuesday, August 15, 2017 11:34 - CONCLUSION: Mild compensated cardiomegaly Roly Reina MD FACR Lumbar Puncture Fluoroscopy 08/08/17 0000 Signed Impressions: Service Date/Time: Tuesday, August 08, 2017 15:42 - CONCLUSION: Uncomplicated fluoroscopically guided lumbar puncture. Fady Chan MD Needle Biopsy/Aspiration X-Ray 07/31/17 0000 Signed Impressions: Service Date/Time: Monday, July 31, 2017 13:29 - CONCLUSION: Uncomplicated needle biopsy of the L4/L5 disc space as above. Candelario Reina MD Abdomen/Pelvis CT 07/29/17 0000 Signed Impressions: Service Date/Time: Saturday, July 29, 2017 22:14 - CONCLUSION: 1. Significant new prevertebral soft tissue fullness and stranding centered at the L5 level. There is associated sclerosis and erosive changes in the anterior L5 vertebral body which appear unchanged from recent exams. Overall, findings are concerning for discitis and osteomyelitis. Consider repeat MRI examination for further evaluation. 2. 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 However, evaluation is significantly limited due to lack of IV contrast on this exam. This was not present on remote prior CT exam. A mycotic aneurysm cannot be entirely excluded. Contrast enhanced examination would be greatly beneficial in further evaluation. 3. Nodular appearing liver contour consistent with cirrhosis. 4. IVC filter in place. 5. Cholelithiasis. Tanner Jones MD Objective Remarks GENERAL: Awake alert and oriented 3 talkative and cooperative-- tends to mumble when he speaks SKIN: Warm and dry. HEAD: Atraumatic. Normocephalic. EYES: Pupils equal and round. No scleral icterus. No injection or drainage. Extraocular muscles intact ENT: No nasal bleeding or discharge. Mucous membranes pink and moist. Tongue is midline NECK: Trachea midline. No JVD. Supple CARDIOVASCULAR: Regular rate and rhythm. S1-S2 no S3 or S4 RESPIRATORY: No accessory muscle use. Clear to auscultation. Breath sounds equal bilaterally. GASTROINTESTINAL: Abdomen soft, non-tender, nondistended. Hepatic and splenic margins not palpable. MUSCULOSKELETAL: Extremities without clubbing, cyanosis, or edema. No obvious deformities. NEUROLOGICAL: Awake and alert. No obvious cranial nerve deficits. Motor grossly within normal limits. 4 out of 5 muscle strength in the arms and legs. Normal speech. PSYCHIATRIC: Appropriate mood and affect; insight and judgment normal. Procedures 08/14/17 lateral oblique approach for drainage of lumbar retroperitoneal and bilateral psoas muscle abscess Medications and IVs Current Medications Sodium Chloride (NS Flush) 2 ml UNSCH PRN IV FLUSH FLUSH AFTER USING IV ACCESS ; Start 07/29/17 at 20:15; Stop 07/31/17 at 22:18; Status DC Morphine Sulfate (Morphine Inj) 4 mg ONCE ONCE IV PUSH Last administered on at 20:42; Start 07/29/17 at 20:15; Stop 07/29/17 at 20:16; Status DC Dexamethasone Sodium Phosphate (Decadron Inj) 8 mg ONCE ONCE IV PUSH Last administered on 07/29/17at 20:42; Start 07/29/17 at 20:15; Stop 07/29/17 at 20:16 ; Status DC Sodium Chloride 1,000 ml @ 999 mls/hr BOLUS ONCE IV Last administered on 07/29at 23:26; Start 07/29/17 at 21:45; Stop 07/29/17 at 22:45; Status DC Ceftriaxone Sodium 2000 mg/ Sodium Chloride 100 ml @ 200 mls/hr ONCE ONCE IV Last administered on 07/29/17at 23:26; Start 07/29/17 at 23:00; Stop 07/29/17 at 23:29; Status DC Vancomycin HCl 1000 mg/Sodium Chloride 250 ml @ 250 mls/hr ONCE ONCE IV ; Start 07/29/17 at 23:00; Stop 07/29/17 at 23:59; Status Cancel Pharmacy Profile Note 0 ml @ 0 mls/hr UNSCH OTHER ; Start 07/29/17 at 23:15; Stop 08/06/17 at 14:40; Status DC Cefepime HCl 1000 mg/Sodium Chloride 100 ml @ 200 mls/hr Q12H IV Last administered on 08/01/17at 21:37; Start 07/30/17 at 09:00; Stop 08/02/17 at 06:53; Status DC Sodium Chloride 1,000 ml @ 70 mls/hr [id number] IV Last administered on at 02:34; Start 07/29/17 at 23:01; Stop 08/21/17 at 13:04; Status DC Sodium Chloride (NS Flush) 2 ml UNSCH PRN IV FLUSH FLUSH AFTER USING IV ACCESS Last administered on 09/05/17 12:06; Start 07/29/17 at 23:15 Sodium Chloride (NS Flush) 2 ml BID IV FLUSH Last administered on 09/09/17at 08: 15; Start 07/30/17 at 09:00 Ondansetron HCl (Zofran Inj) 4 mg Q6H PRN IVP NAUSEA OR VOMITING; Start at 23:15 Acetaminophen (Tylenol) 650 mg Q6H PRN PO FEVER/PAIN SCALE 1 TO 2 Last administered on 08/15/17at 07:38; Start 07/29/17 at 23:15 Morphine Sulfate (Morphine Inj) 2 mg Q3H PRN IV PUSH Pain 6-10; Start 07/29/17 at 23:15; Stop 07/30/17 at 20:43; Status DC Oxycodone HCl (Roxicodone) 5 mg Q4H PRN PO PAIN SCALE 3 TO 5 Last administered on 08/01/17at 05:48; Start 07/29/17 at 23:15; Stop 08/01/17 at 08:56; Status DC Senna/Docusate Sodium (Emilie-Colace) 1 tab BID PO Last administered on 09/08/17at 20:45; Start 07/30/17 at 09:00 Magnesium Hydroxide (Milk Of Magnesia Liq) 30 ml Q12H PRN PO Mild constipation ; Start 07/29/17 at 23:15 Sennosides (Senokot) 17.2 mg Q12H PRN PO Moderate constipation; Start 07/29/17 at 23:15 Bisacodyl (Dulcolax Supp) 10 mg DAILY PRN RECTAL SEVERE CONSITIPATION/ IF NPO ; Start 07/29/17 at 23:15 Lactulose (Lactulose Liq) 30 ml DAILY PRN PO SEVERE CONSITIPATION/ IF PO Last administered on 08/19/17at 13:55; Start 07/29/17 at 23:15 Lorazepam (Ativan Inj) 1 mg Q2H PRN IV PUSH AGITATION/WITHDRAWAL Last administered on 08/14/17at 19:10; Start 07/29/17 at 23:15; Stop 08/24/17 at 13:35 ; Status DC Vancomycin/Sodium Chloride 200 ml @ 200 mls/hr ONCE ONCE IV Last administered on 07/29/17at 23:55; Start 07/30/17 at 00:00; Stop 07/30/17 at 00:59 ; Status DC Vancomycin HCl 1000 mg/Sodium Chloride 250 ml @ 250 mls/hr ONCE ONCE IV Last administered on 07/30/17at 12:08; Start 07/30/17 at 12:00; Stop 07/30/17 at 12:59 ; Status DC Morphine Sulfate (Morphine Inj) 2 mg Q3H PRN IV PUSH Pain 6-10 Last administered on 08/01/17at 01:54; Start 07/30/17 at 20:45; Stop 08/01/17 at 08:56; Status DC Vancomycin HCl 1500 mg/Sodium Chloride 515 ml @ 257.5 mls/ hr ONCE ONCE IV Last administered on 07/31/17at 18:19; Start 07/31/17 at 18:00; Stop 07/31/17 at 19: 59; Status DC Fentanyl Citrate (fentaNYL INJ) 100 mcg STK-MED ONCE .ROUTE Last administered on 07/31/17 13:09; Start 07/31/17 at 13:09; Stop 07/31/17 at 13:10; Status DC Midazolam HCl (Versed Inj) 2 mg STK-MED ONCE .ROUTE Last administered on at 13:09; Start 07/31/17 at 13:09; Stop 07/31/17 at 13:10; Status DC Sodium Bicarbonate 50 ml @ As Directed STK-MED ONCE .ROUTE Last administered on 07/31/17 13:33; Start 07/31/17 at 13:33; Stop 07/31/17 at 13:34; Status DC Oxycodone HCl (Roxicodone) 5 mg ONCE ONCE PO Last administered on 07/31/17at 22: 40; Start 07/31/17 at 22:15; Stop 07/31/17 at 22:18; Status DC Oxycodone/ Acetaminophen (Percocet 10-325 Mg) 1 tab Q4H PRN PO PAIN SCALE 4 TO 10 Last administered on 08/06/17at 05:36; Start 08/01/17 at 09:00; Stop 08/09/17 at 09:39; Status DC Hydromorphone HCl (Dilaudid Pf Inj) 0.5 mg Q4H PRN IV PUSH BREAKTHROUGH PAIN Last administered on 5/15/18at 13:21; Start 08/01/17 at 09:00; Stop 08/14/17 at 19:29; Status DC Ceftriaxone Sodium 2000 mg/ Sodium Chloride 100 ml @ 200 mls/hr Q12H IV ; Start 08/02/17 at 08:00; Stop 08/02/17 at 11:59; Status DC Ceftriaxone Sodium 2000 mg/ Sodium Chloride 100 ml @ 200 mls/hr Q12H IV Last administered on 08/02/17at 23:39; Start 08/02/17 at 12:00; Stop 08/03/17 at 16:10; Status DC Vancomycin HCl 2000 mg/Sodium Chloride 520 ml @ 250 mls/hr ONCE ONCE IV Last administered on 08/02/17at 14:50; Start 08/02/17 at 14:00; Stop 08/02/17 at 16:04; Status DC Calcium Carbonate (Tums Chew) 500 mg Q2H PRN CHEW indigestion Last administered on 08/05/17at 13:49; Start 08/02/17 at 19:30 Clonidine (Catapres) 0.1 mg ONCE ONCE PO Last administered on 08/03/17at 05:07; Start 08/03/17 at 04:45; Stop 08/03/17 at 04:47; Status DC Ceftriaxone Sodium 2000 mg/ Sodium Chloride 100 ml @ 200 mls/hr Q12H IV Last administered on 09/09/17at 11:01; Start 08/03/17 at 17:00 Vancomycin HCl 1750 mg/Sodium Chloride 517.5 ml @ 257.5 mls/ hr ONCE ONCE IV Last administered on 08/04/17at 14:07; Start 08/04/17 at 14:00; Stop 08/04/17 at 16: 00; Status DC Clonidine (Catapres) 0.1 mg Q6H PRN PO SYS BP GREATER THAN 165 MMHG Last administered on 08/06/17at 23:44; Start 08/04/17 at 15:30 Lactic Acid (Lac-Hydrin 12% Lotion) 1 applic BID TOPICAL Last administered on at 08:16; Start 08/04/17 at 21:00 Clonidine (Catapres) 0.1 mg ONCE ONCE PO Last administered on 08/05/17at 05:10; Start 08/05/17 at 04:45; Stop 08/05/17 at 04:46; Status DC Famotidine (Pepcid) 20 mg BID PO Last administered on 09/09/17at 08:15; Start at 21:00 Clonidine (Catapres) 0.1 mg ONCE ONCE PO Last administered on 08/06/17at 06:45; Start 08/06/17 at 06:45; Stop 08/06/17 at 06:46; Status DC Vancomycin HCl 1750 mg/Sodium Chloride 517.5 ml @ 257.5 mls/ hr ONCE ONCE IV Last administered on 08/06/17at 14:05; Start 08/06/17 at 13:00; Stop 08/06/17 at 14: 40; Status DC Hydralazine HCl (Apresoline Inj) 10 mg Q4H PRN IV PUSH SBP > 165; Start at 10:00; Stop 08/06/17 at 11:01; Status DC Amlodipine Besylate (Norvasc) 10 mg DAILY PO Last administered on 09/09/17at 08: 15; Start 08/06/17 at 11:00 Enalaprilat (Vasotec Inj) 2.5 mg Q6H PRN IV PUSH SBP > 165 Last administered on 09/09/17at 00:39; Start 08/06/17 at 11:00 Oxycodone/ Acetaminophen (Percocet 5-325 Mg) 1 tab Q6H PRN PO PAIN 4-10 Last administered on 08/09/17at 08:14; Start 08/08/17 at 08:45; Stop 08/09/17 at 09:28 ; Status DC Gadodiamide (Omniscan Pf Inj) 20 ml STK-MED ONCE IVCONTRAST Last administered on 08/08/17at 14:30; Start 08/08/17 at 14:30; Stop 08/08/17 at 14:31; Status DC Oxycodone/ Acetaminophen (Percocet 5-325 Mg) 1 tab Q4HR PRN PO PAIN 4-10 Last administered on 09/09/17at 08:15; Start 08/09/17 at 10:00 Zolpidem Tartrate (Ambien) 5 mg ONCE ONCE PO Last administered on 08/13/17at 01 :45; Start 08/13/17 at 01:45; Stop 08/13/17 at 01:46; Status DC Acetaminophen 100 ml @ As Directed STK-MED ONCE IV ; Start 08/14/17 at 12:50; Stop 08/14/17 at 12:51; Status DC Artificial Tears (Lacrilube Opht Oint) 3.5 applic STK-MED ONCE .ROUTE ; Start at 12:50; Stop 08/14/17 at 12:51; Status DC Artificial Tears (Lacrilube Opht Oint) 3.5 applic STK-MED ONCE .ROUTE ; Start at 13:52; Stop 08/14/17 at 13:53; Status DC Lidocaine/ Epinephrine (Xylocaine-Epi 1%-1:100,000 Inj) 20 ml STK-MED ONCE .ROUTE ; Start 08/14/17 at 14:41; Stop 08/14/17 at 14:42; Status DC Thrombin (Thrombin Top Soln) 10,000 units STK-MED ONCE .ROUTE Last administered on 08/14/17at 17:53; Start 08/14/17 at 14:41; Stop 08/14/17 at 14:42 ; Status DC Gelatin (Gelfoam 100 Top) 1 foam STK-MED ONCE .ROUTE Last administered on at 17:53; Start 08/14/17 at 14:41; Stop 08/14/17 at 14:42; Status DC Gentamicin Sulfate (Gentamicin Inj) 240 mg STK-MED ONCE .ROUTE ; Start 08/14/17 at 14:42; Stop 08/14/17 at 14:43; Status DC Ceftriaxone Sodium (Rocephin Inj) 1,000 mg STK-MED ONCE .ROUTE Last administered on 08/14/17at 17:20; Start 08/14/17 at 17:00; Stop 08/14/17 at 17:01 ; Status DC Ceftriaxone Sodium (Rocephin Inj) 1,000 mg STK-MED ONCE .ROUTE Last administered on 08/14/17 17:20; Start 08/14/17 at 17:01; Stop 08/14/17 at 17:02 ; Status DC Meperidine HCl (*DEMEROL INJ PERIprocedural ONLY) 25 mg STK-MED ONCE .ROUTE Last administered on 08/14/17at 18:49; Start 08/14/17 at 18:49; Stop 08/14/17 at 18:50; Status DC Hydromorphone HCl (*DILAUDID PF INJ PERIprocedure ONLY) 0.5 mg STK-MED ONCE .ROUTE Last administered on 08/14/17at 18:49; Start 08/14/17 at 18:49; Stop at 18:50; Status DC Midazolam HCl (Versed Inj) 2 mg STK-MED ONCE .ROUTE ; Start 08/14/17 at 18:53; Stop 08/14/17 at 18:54; Status DC Fentanyl Citrate (fentaNYL INJ) 200 mcg STK-MED ONCE .ROUTE ; Start 08/14/17 at 18:53; Stop 08/14/17 at 18:54; Status DC Morphine Sulfate (*morphine INJ PERIprocedure ONLY) 10 mg STK-MED ONCE .ROUTE Last administered on 08/14/17at 19:11; Start 08/14/17 at 19:11; Stop 08/14/17 at 19:12; Status DC Hydromorphone HCl (Dilaudid Pf Inj) 1 mg Q4H PRN IV PUSH BREAKTHROUGH PAIN Last administered on 08/17/17at 07:46; Start 08/14/17 at 21:00; Stop 08/24/17 at 13:33; Status DC Hydromorphone HCl (Dilaudid Pf Inj) 0.5 mg Q3H PRN IV PUSH Pain 3-5; if unable to take PO; Start 08/14/17 at 19:30; Stop 08/22/17 at 15:54; Status DC Naloxone HCl (Narcan Inj) 0.4 mg UNSCH PRN IV PUSH SEE LABEL COMMENTS; Start at 19:30 Miscellaneous Information ([facility] [place] ALL NURSING DEPARTME... UNSCH PRN .XX SEE LABEL COMMENTS; Start 08/14/17 at 20:00; Stop 08/15/17 at 19: 59; Status DC Albuterol Sulfate (Proair Hfa Inh) 2 puff Q4H PRN INH SHORTNESS OF BREATH; Start 08/14/17 at 20:30 Amlodipine Besylate (Norvasc) 10 mg DAILY PO ; Start 08/15/17 at 09:00; Stop at 14:31; Status DC Clonidine (Catapres) 0.1 mg DAILY PO Last administered on 08/24/17at 07:58; Start 08/15/17 at 09:00; Stop 08/24/17 at 13:35; Status DC Cyclobenzaprine HCl (Flexeril) 5 mg TID PRN PO SPASM Last administered on at 11:01; Start 08/14/17 at 20:30 Lactic Acid (Lac-Hydrin 12% Lotion) 1 applic BID TOPICAL Last administered on at 20:12; Start 08/17/17 at 11:00 Polyethylene Glycol (Miralax) 17 gm DAILY PO Last administered on 09/05/17at 08: 10; Start 08/18/17 at 09:00 Prednisone (Deltasone) 10 mg DAILY PO Last administered on 09/09/17at 08:15; Start 08/21/17 at 09:00 Magnesium Citrate (Citroma Liq) 300 ml ONCE ONCE PO Last administered on at 15:15; Start 08/21/17 at 13:15; Stop 08/21/17 at 13:16; Status DC Dextrose/Sodium Chloride 1,000 ml @ 75 mls/hr [id number] IV Last administered on 08/22/17at 17:07; Start 08/22/17 at 15:45; Stop 08/23/17 at 05:04; Status DC Dextrose/Sodium Chloride 1,000 ml @ 100 mls/hr Q10H IV Last administered on at 12:48; Start 08/24/17 at 14:00; Stop 08/25/17 at 09:59; Status DC Dextrose/Sodium Chloride 1,000 ml @ 100 mls/hr Q10H IV Last administered on at 23:14; Start 08/25/17 at 11:45; Stop 08/26/17 at 16:28; Status DC Sodium Chloride 250 ml @ 15 mls/hr ONCE ONCE IV Last administered on at 10:17; Start 08/28/17 at 06:15; Stop 08/28/17 at 22:54; Status DC Gadodiamide (Omniscan Pf Inj) 20 ml STK-MED ONCE IVCONTRAST Last administered on 08/28/17at 18:44; Start 08/28/17 at 18:42; Stop 08/28/17 at 18:43; Status DC Gabapentin (Neurontin) 300 mg TID PO Last administered on 09/01/17at 08:10; Start 08/29/17 at 13:00; Stop 09/01/17 at 12:15; Status DC Iohexol (Omnipaque 350 Inj) 94 ml STK-MED ONCE IVCONTRAST Last administered on 08/29/17at 22:23; Start 08/29/17 at 22:23; Stop 08/29/17 at 22:24; Status DC Midazolam HCl (Versed Inj) 5 mg STK-MED ONCE .ROUTE Last administered on at 15:16; Start 08/30/17 at 15:16; Stop 08/30/17 at 15:17; Status DC Fentanyl Citrate (fentaNYL INJ) 250 mcg STK-MED ONCE .ROUTE Last administered on 08/30/17at 15:16; Start 08/30/17 at 15:16; Stop 08/30/17 at 15:17; Status DC Gabapentin (Neurontin) 600 mg TID PO Last administered on 09/06/17at 13:00; Start 09/01/17 at 13:00; Stop 09/06/17 at 15:13; Status DC Enoxaparin Sodium (Lovenox Inj) 40 mg Q24H SQ Last administered on 09/08/17at 18: 28; Start 09/02/17 at 16:00 Gabapentin (Neurontin) 600 mg BID PO Last administered on 09/09/17at 08:15; Start 09/06/17 at 21:00 A/P Problem List: (1) Osteomyelitis ICD Code: M86.9 - Osteomyelitis, unspecified Status: Acute (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 Osteomyelitis of the L5 vertebra/bilateral psoas muscle abscess/ bacteremia Status post CT-guided removal of fluid for culture as well as disc biopsy on 07/31. Appreciate neurosurgery, vascular surgery, infectious disease recommendations. Status post drainage of abscess on 08/14/17. Wound culture is negative. Mycobacterial and fungal cultures are pending. Bacteremia with Strep Anginosis. - Continue antibiotics per ID. - follow up with neurosurgery. Jennifer removed 08/26. - 08/28 as per neurosurgery recommendations the patient will need at least 6 weeks of IV antibiotics before procedure. Continue IV Rocephin. Follow-up repeat MRI. - 08/29 repeat MRI shows a persistence of fluid on the left. Persistent evidence of inflammatory process remains at the L4-5 disc. Discussed the case with Dr. Goldstein from ID who relayed to Dr. Sanchez will let her know if I recommend aspiration or any other procedures needed. We will start the patient on gabapentin for neuropathic pain at the lower back. - The patient status post needle aspiration CT-guided of spinal fluid collection. As per report the patient had 6 cc of serosanguineous, purulent fluid removed. Follow-up cultures. Antibiotics per ID. Continue IV Rocephin. - 09/01 the patient still complains of radicular pain and pain in the lower back. I will increase the dose of gabapentin from 300 mg p.o. 3 times daily to 600 mg p.o. 3 times daily. Continue pain control management as above. - 09/02 pain is better controlled. Continue pain control with gabapentin 600 mg p.o. 3 times a day, oxycodone as needed. -09/04 discussed the case with Dr. Goldstein from infectious disease. Recommend discontinuation of IV Rocephin every 12 hours. As per ID he stopped that cannot be provided. Patient is also not a safe discharge as he did drugs in the hospital. Will consult Dr. Felipe from neurosurgery to assess loculated fluid and timing of surgery for pain symptoms in back and legs.- NO SURGERY PER NEUROSURGERY 2. Encephalopathy Likely toxic secondary to drug abuse. S/P lumbar puncture. Evaluated by psychiatry, patient is capable of making decisions. - resolved. - Avoid overly sedating medications. 3. Cocaine abuse Urine toxicology positive for cocaine. There was concern that the patient may have used cocaine while in the hospital as his urine drug screen was positive 8 days after admission. - cessation instruction. -Visitors allowed again. 4. Right iliac artery aneurysm Patient noted to have a 2.9 cm aneurysm of the right internal iliac artery, possibly mycotic aneurysm. This was an incidental finding. He denies IV drug abuse. Appreciate vascular surgery recommendations. - No surgery planned at this time. 5. Chronic kidney disease stage II with acute kidney injury. Creatinine seems stable. - monitor and avoid nephrotoxins. 6. Hypoglycemia Episodes of low blood sugar into the 60s. Blood sugars more stable. - ADAT. Continue Ensure. - check an insulin level. Obtain abdominal US if elevated. 6/5 insulin level elevated at 72.2. Peptide, proinsulin, insulin antibody and obtain an abdominal ultrasound. The blood sugars are not associated with symptoms. 7. Anemia Seems chronic. - check Hemoccult. - follow CBC. Anemia likely multifactorial. Follow-up stool blood Hemoccult. -Hemoglobin stable. 8. Hypertension Blood pressure well controlled. -Clonidine discontinued - continue amlodipine. DVT prophylaxis: SCDs. Add Lovenox subcutaneously. Discharge Planning NOT CLEARED by ID FOR DISCHARGE Roly Loving DO Sep 09, 2017 11:43
[2017-09-09 12:00] VITALS: BP 141/79; PULSE 98; RESP 17; TEMP 98.1; O2SAT 95
[2017-09-09 16:00] VITALS: BP 103/66; PULSE 90; RESP 18; TEMP 98.2; O2SAT 96
[2017-09-09] MEDS: ENOXAPARIN SODIUM 40 MG/0.4 ML SYRINGE SQ SCH (17:32)
[2017-09-09 20:24] VITALS: BP 105/80; PULSE 102; RESP 17; TEMP 97.9; O2SAT 96
--- NOTE | 2017-09-09 20:33 | HHI.PR ---
Subjective Remarks NOT SEEN Objective Vitals Vital Signs Date Time Temp Pulse Resp B/P (MAP) Pulse Ox O2 Delivery O2 Flow Rate FiO2 09/09/17 20:24 97.9 102 17 105/80 (88) 96 09/09/17 16:00 98.2 90 18 103/66 (78) 96 09/09/17 12:00 98.1 98 17 141/79 (99) 95 09/09/17 08:00 97.9 98 18 134/88 (103) 97 Arterial Line 09/09/17 04:00 98.0 97 18 119/73 (88) 93 09/09/17 00:00 98.0 96 18 164/104 (124) 99 I/O 09/08/17 09/08/17 09/08/17 09/09/17 09/09/17 09/09/17 07:00 15:00 23:00 07:00 15:00 23:00 Intake Total 960 ml 695 ml 575 ml Output Total 1200 ml 2310 ml 1020 ml 1750 ml Balance -240 ml -1615 ml -1020 ml -1175 ml Intake Oral 960 ml 595 ml 575 ml IV Total 100 ml Output Urine Total 1200 ml 2310 ml 1020 ml 1750 ml # Bowel Movements 1 1 Result Diagram: 09/08/17 0522 09/08/17 0522 Imaging Last Impressions Needle Aspiration CT 08/30/17 1356 Signed Impressions: CONCLUSION: 1. Uncomplicated procedure as above. Lumbar Spine CT 08/29/17 0000 Signed Impressions: CONCLUSION: 1. There is destructive changes involving the disc space at L4-5 characteristi c for discitis. 2. There are destructive changes predominantly in the body of L5 consistent wi th osteomyelitis. There is prominent paraspinal soft tissue swelling at the L4- L5 level. 3. Mild grade 1 anterior spondylolisthesis of L4 over L5. 4. Limited visualization of the spinal canal at L4-5 due to the inflammatory c hanges. 5. Bilateral facet arthritis at multiple levels. 6. Broad-based bulging at L2-3 and L3-4. Lumbar Spine MRI 08/28/17 0000 Signed Impressions: CONCLUSION: 1. Improvement as above. Persistent fluid remains on the left. Persistent evid ence for inflammatory process remains at the L4-5 disc. 2. Less inflammatory changes in the retroperitoneum. Chest X-Ray 08/15/17 0000 Signed Impressions: Service Date/Time: Tuesday, August 15, 2017 11:34 - CONCLUSION: Mild compensated cardiomegaly Roly Reina MD FACR Lumbar Puncture Fluoroscopy 08/08/17 0000 Signed Impressions: Service Date/Time: Tuesday, August 08, 2017 15:42 - CONCLUSION: Uncomplicated fluoroscopically guided lumbar puncture. Fady Chan MD Needle Biopsy/Aspiration X-Ray 07/31/17 0000 Signed Impressions: Service Date/Time: Monday, July 31, 2017 13:29 - CONCLUSION: Uncomplicated needle biopsy of the L4/L5 disc space as above. Candelario Reina MD Abdomen/Pelvis CT 07/29/17 0000 Signed Impressions: Service Date/Time: Saturday, July 29, 2017 22:14 - CONCLUSION: 1. Significant new prevertebral soft tissue fullness and stranding centered at the L5 level. There is associated sclerosis and erosive changes in the anterior L5 vertebral body which appear unchanged from recent exams. Overall, findings are concerning for discitis and osteomyelitis. Consider repeat MRI examination for further evaluation. 2. 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 However, evaluation is significantly limited due to lack of IV contrast on this exam. This was not present on remote prior CT exam. A mycotic aneurysm cannot be entirely excluded. Contrast enhanced examination would be greatly beneficial in further evaluation. 3. Nodular appearing liver contour consistent with cirrhosis. 4. IVC filter in place. 5. Cholelithiasis. Tanner Jones MD Objective Remarks GENERAL: Awake alert and oriented 3 talkative and cooperative-- tends to mumble when he speaks SKIN: Warm and dry. HEAD: Atraumatic. Normocephalic. EYES: Pupils equal and round. No scleral icterus. No injection or drainage. Extraocular muscles intact ENT: No nasal bleeding or discharge. Mucous membranes pink and moist. Tongue is midline NECK: Trachea midline. No JVD. Supple CARDIOVASCULAR: Regular rate and rhythm. S1-S2 no S3 or S4 RESPIRATORY: No accessory muscle use. Clear to auscultation. Breath sounds equal bilaterally. GASTROINTESTINAL: Abdomen soft, non-tender, nondistended. Hepatic and splenic margins not palpable. MUSCULOSKELETAL: Extremities without clubbing, cyanosis, or edema. No obvious deformities. NEUROLOGICAL: Awake and alert. No obvious cranial nerve deficits. Motor grossly within normal limits. 4 out of 5 muscle strength in the arms and legs. Normal speech. PSYCHIATRIC: Appropriate mood and affect; insight and judgment normal. Procedures CT-guided removal of fluid for culture as well as disc biopsy L4-5 on 07/31/17 08/14/17 lateral oblique approach for drainage of lumbar retroperitoneal and bilateral psoas muscle abscess 08/30/[id number] needle aspiration of psoas muscle abscess. . 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 Osteomyelitis of the L5 vertebra/bilateral psoas muscle abscess/ bacteremia Status post CT-guided removal of fluid for culture as well as disc biopsy on 07/31. Appreciate neurosurgery, vascular surgery, infectious disease recommendations. Status post drainage of abscess on 08/14/17. Wound culture is negative. Mycobacterial and fungal cultures are negative. Bacteremia with Strep Anginosis. - 08/28 as per neurosurgery recommendations the patient will need at least 6 weeks of IV antibiotics before procedure. Continue IV Rocephin. Follow-up repeat MRI. - 09/04 discussed the case with Dr. Goldstein from infectious disease. Recommend continuation of IV Rocephin every 12 hours. As per ID stop date cannot be provided. Patient is also not a safe discharge as he did drugs in the hospital. Will consult Dr. Felipe from neurosurgery to assess loculated fluid and timing of surgery for pain symptoms in back and legs.- No surgery per NS at this time 2. Encephalopathy Likely toxic secondary to drug abuse. S/P lumbar puncture. Evaluated by psychiatry, patient is capable of making decisions. - resolved. - Avoid overly sedating medications. 3. Cocaine abuse Urine toxicology positive for cocaine. There was concern that the patient may have used cocaine while in the hospital as his urine drug screen was positive 8 days after admission. - cessation instruction. - Visitors allowed again. 4. Right iliac artery aneurysm Patient noted to have a 2.9 cm aneurysm of the right internal iliac artery, possibly mycotic aneurysm. This was an incidental finding. He denies IV drug abuse. Appreciate vascular surgery recommendations. - No surgery planned at this time. 5. Chronic kidney disease stage II with acute kidney injury. Creatinine seems stable. - monitor and avoid nephrotoxins. 6. Hypoglycemia Episodes of low blood sugar into the 60s. Blood sugars more stable. - ADAT. Continue Ensure. 6/5 insulin level elevated at 72.2 but was not hypoglycemic. The blood sugars are not associated with symptoms. 7. Anemia Seems chronic. Anemia likely multifactorial. Follow-up stool blood Hemoccult. -Hemoglobin stable. 8. Hypertension Blood pressure well controlled. -Clonidine discontinued - continue amlodipine. DVT prophylaxis: SCDs and Lovenox subcutaneously. Darion Cameron MD Sep 09, 2017 20:33
[2017-09-10 00:25] VITALS: BP 120/77; PULSE 95; RESP 16; TEMP 96.8; O2SAT 96
[2017-09-10] MEDS: oxyCODONE/ACETAMINOPHEN 5 MG/325 MG TAB PO PRN ×4 (02:58→21:28)
[2017-09-10 08:00] VITALS: BP 164/106; PULSE 93; RESP 18; TEMP 97.8; O2SAT 96
[2017-09-10] MEDS: SODIUM CHLORIDE 0.9% FLUSH 10 ML FLUSH IV FLUSH SCH ×2 (08:05→21:34)
[2017-09-10] MEDS: POLYETHYLENE GLYCOL 17 GM PKG PO SCH (08:05)
[2017-09-10] MEDS: DOCUSATE SODIUM 50 MG/SENNA 8.6 MG TAB PO SCH ×2 (08:05→21:28)
[2017-09-10] MEDS: GABAPENTIN 300 MG CAP PO SCH ×2 (08:05→21:28)
[2017-09-10] MEDS: FAMOTIDINE 20 MG TAB PO SCH ×2 (08:05→21:28)
[2017-09-10] MEDS: predniSONE 10 MG TAB PO SCH (08:05)
[2017-09-10] MEDS: LACTIC ACID (AMMONIUM LACTATE) 12% LOTION 225 GM BTL TOPICAL SCH ×4 (08:08→21:33)
[2017-09-10] MEDS: cefTRIAXone INJ 2,000 MG in SODIUM CHLORIDE 0.9% INJ 100 ML IV SCH ×2 (08:21→21:30)
[2017-09-10 12:00] VITALS: BP 135/98; PULSE 104; RESP 18; TEMP 97.5; O2SAT 96
--- NOTE | 2017-09-10 13:35 | HHI.PR ---
Subjective Remarks Follow-up osteomyelitis. States he is trying his best to be active getting out of bed wearing brace. Discussed with nursing. Takes prednisone for sarcoidosis Objective Vitals Vital Signs Date Time Temp Pulse Resp B/P (MAP) Pulse Ox O2 Delivery O2 Flow Rate FiO2 09/10/17 12:00 97.5 104 18 135/98 (110) 96 09/10/17 08:00 97.8 93 18 164/106 (125) 96 09/10/17 00:25 96.8 95 16 120/77 (91) 96 09/09/17 20:24 97.9 102 17 105/80 (88) 96 09/09/17 16:00 98.2 90 18 103/66 (78) 96 I/O 09/09/17 09/09/17 09/09/17 09/10/17 09/10/17 09/10/17 06:59 14:59 22:59 06:59 14:59 22:59 Intake Total 575 ml 980 ml Output Total 1020 ml 1750 ml 1000 ml 1000 ml Balance -1020 ml -1175 ml -20 ml -1000 ml Intake Oral 575 ml 880 ml IV Total 100 ml Output Urine Total 1020 ml 1750 ml 1000 ml 1000 ml # Bowel Movements 1 1 Result Diagram: 09/08/17 0522 09/08/17 0522 Imaging Last Impressions Needle Aspiration CT 08/30/17 1356 Signed Impressions: CONCLUSION: 1. Uncomplicated procedure as above. Lumbar Spine CT 08/29/17 0000 Signed Impressions: CONCLUSION: 1. There is destructive changes involving the disc space at L4-5 characteristi c for discitis. 2. There are destructive changes predominantly in the body of L5 consistent wi th osteomyelitis. There is prominent paraspinal soft tissue swelling at the L4- L5 level. 3. Mild grade 1 anterior spondylolisthesis of L4 over L5. 4. Limited visualization of the spinal canal at L4-5 due to the inflammatory c hanges. 5. Bilateral facet arthritis at multiple levels. 6. Broad-based bulging at L2-3 and L3-4. Lumbar Spine MRI 08/28/17 0000 Signed Impressions: CONCLUSION: 1. Improvement as above. Persistent fluid remains on the left. Persistent evid ence for inflammatory process remains at the L4-5 disc. 2. Less inflammatory changes in the retroperitoneum. Chest X-Ray 08/15/17 0000 Signed Impressions: Service Date/Time: Tuesday, August 15, 2017 11:34 - CONCLUSION: Mild compensated cardiomegaly Roly Reina MD FACR Lumbar Puncture Fluoroscopy 08/08/17 0000 Signed Impressions: Service Date/Time: Tuesday, August 08, 2017 15:42 - CONCLUSION: Uncomplicated fluoroscopically guided lumbar puncture. Fady Chan MD Needle Biopsy/Aspiration X-Ray 07/31/17 0000 Signed Impressions: Service Date/Time: Monday, July 31, 2017 13:29 - CONCLUSION: Uncomplicated needle biopsy of the L4/L5 disc space as above. Candelario Reina MD Abdomen/Pelvis CT 07/29/17 0000 Signed Impressions: Service Date/Time: Saturday, July 29, 2017 22:14 - CONCLUSION: 1. Significant new prevertebral soft tissue fullness and stranding centered at the L5 level. There is associated sclerosis and erosive changes in the anterior L5 vertebral body which appear unchanged from recent exams. Overall, findings are concerning for discitis and osteomyelitis. Consider repeat MRI examination for further evaluation. 2. 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 However, evaluation is significantly limited due to lack of IV contrast on this exam. This was not present on remote prior CT exam. A mycotic aneurysm cannot be entirely excluded. Contrast enhanced examination would be greatly beneficial in further evaluation. 3. Nodular appearing liver contour consistent with cirrhosis. 4. IVC filter in place. 5. Cholelithiasis. Tanner Jones MD Objective Remarks GENERAL: Awake alert and oriented 3 well-developed well-nourished SKIN: Warm and dry. CARDIOVASCULAR: Regular rate and rhythm. S1-S2 no S3 or S4 RESPIRATORY: No accessory muscle use. Clear to auscultation. Breath sounds equal bilaterally. GASTROINTESTINAL: Abdomen soft, non-tender, nondistended. MUSCULOSKELETAL: Extremities without clubbing, cyanosis, or edema. No obvious deformities. NEUROLOGICAL: Awake and alert. No obvious cranial nerve deficits. Motor grossly within normal limits. 4 out of 5 muscle strength in the arms and legs. Normal speech. PSYCHIATRIC: Appropriate mood and affect; insight and judgment normal. Procedures CT-guided removal of fluid for culture as well as disc biopsy L4-5 on 07/31/17 08/14/17 lateral oblique approach for drainage of lumbar retroperitoneal and bilateral psoas muscle abscess 08/30/1712-[id number] needle aspiration of psoas muscle abscess. . 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 Osteomyelitis of the L5 vertebra/bilateral psoas muscle abscess/ bacteremia Status post CT-guided removal of fluid for culture as well as disc biopsy on 07/31. Appreciate neurosurgery, vascular surgery, infectious disease recommendations. Status post drainage of abscess on 08/14/17. Wound culture is negative. Mycobacterial and fungal cultures are negative. Bacteremia with Strep Anginosis. - 08/28 as per neurosurgery recommendations the patient will need at least 6 weeks of IV antibiotics then follow-up imaging study before consideration for procedure. Continue IV Rocephin. - 09/04 discussed the case with Dr. Goldstein from infectious disease. Recommend continuation of IV Rocephin every 12 hours. As per ID stop date cannot be provided. Patient is also not a safe discharge as he did drugs in the hospital. Will consult Dr. Felipe from neurosurgery to assess loculated fluid and timing of surgery for pain symptoms in back and legs.- No surgery at this time 2. Encephalopathy Likely toxic secondary to drug abuse. S/P lumbar puncture. Evaluated by psychiatry, patient is capable of making decisions. - resolved. - Avoid overly sedating medications. 3. Cocaine abuse Urine toxicology positive for cocaine. There was concern that the patient may have used cocaine while in the hospital as his urine drug screen was positive 8 days after admission. - cessation instruction. - Visitors allowed again. 4. Right iliac artery aneurysm Patient noted to have a 2.9 cm aneurysm of the right internal iliac artery, possibly mycotic aneurysm. This was an incidental finding. He denies IV drug abuse. Appreciate vascular surgery recommendations. - No surgery planned at this time. 5. Chronic kidney disease stage II with acute kidney injury. Creatinine seems stable. - monitor and avoid nephrotoxins. 6. Hypoglycemia Episodes of low blood sugar into the 60s. Blood sugars more stable. - ADAT. Continue Ensure. 6/5 insulin level elevated at 72.2 but was not hypoglycemic. The blood sugars are not associated with symptoms. 7. Anemia Seems chronic. Anemia likely multifactorial. Follow-up stool blood Hemoccult. -Hemoglobin stable. 8. Hypertension Blood pressure well controlled. -Clonidine discontinued - continue amlodipine. 9. Sarcoidosis on chronic prednisone. DVT prophylaxis: SCDs and Lovenox subcutaneously. Darion Cameron MD Sep 10, 2017 13:35
[2017-09-10] MEDS: ENOXAPARIN SODIUM 40 MG/0.4 ML SYRINGE SQ SCH (15:51)
[2017-09-10 16:00] VITALS: BP 115/69; PULSE 111; RESP 18; TEMP 98; O2SAT 96
[2017-09-10 20:00] VITALS: BP 124/79; PULSE 105; RESP 20; TEMP 97.7; O2SAT 96
[2017-09-11] VITALS: BP 129/71; PULSE 96; RESP 20; TEMP 97.9; O2SAT 100
[2017-09-11] MEDS: oxyCODONE/ACETAMINOPHEN 5 MG/325 MG TAB PO PRN ×4 (03:58→20:39)
[2017-09-11 08:00] VITALS: BP 121/83; PULSE 94; RESP 18; TEMP 97.6; O2SAT 95
--- NOTE | 2017-09-11 08:05 | HHI.PR ---
Subjective Remarks Follow-up lumbar spine osteomyelitis. Usual lower back pain with radiculopathy Objective Vitals Vital Signs Date Time Temp Pulse Resp B/P (MAP) Pulse Ox O2 Delivery O2 Flow Rate FiO2 09/11/17 00:00 97.9 96 20 129/71 (90) 100 09/10/17 20:00 97.7 105 20 124/79 (94) 96 09/10/17 16:00 98.0 111 18 115/69 (84) 96 09/10/17 12:00 97.5 104 18 135/98 (110) 96 I/O 09/10/17 09/10/17 09/10/17 09/11/17 09/11/17 09/11/17 07:00 15:00 23:00 07:00 15:00 23:00 Intake Total 980 ml 960 ml 100 ml Output Total 1000 ml 1000 ml 750 ml Balance -20 ml -1000 ml 210 ml 100 ml Intake Oral 880 ml 960 ml IV Total 100 ml 100 ml Output Urine Total 1000 ml 1000 ml 750 ml # Voids 1 # Bowel Movements 1 1 Result Diagram: 09/08/17 0522 09/08/17 0522 Imaging Last Impressions Needle Aspiration CT 08/30/17 1356 Signed Impressions: CONCLUSION: 1. Uncomplicated procedure as above. Lumbar Spine CT 08/29/17 0000 Signed Impressions: CONCLUSION: 1. There is destructive changes involving the disc space at L4-5 characteristi c for discitis. 2. There are destructive changes predominantly in the body of L5 consistent wi th osteomyelitis. There is prominent paraspinal soft tissue swelling at the L4- L5 level. 3. Mild grade 1 anterior spondylolisthesis of L4 over L5. 4. Limited visualization of the spinal canal at L4-5 due to the inflammatory c hanges. 5. Bilateral facet arthritis at multiple levels. 6. Broad-based bulging at L2-3 and L3-4. Lumbar Spine MRI 08/28/17 0000 Signed Impressions: CONCLUSION: 1. Improvement as above. Persistent fluid remains on the left. Persistent evid ence for inflammatory process remains at the L4-5 disc. 2. Less inflammatory changes in the retroperitoneum. Chest X-Ray 08/15/17 0000 Signed Impressions: Service Date/Time: Tuesday, August 15, 2017 11:34 - CONCLUSION: Mild compensated cardiomegaly Roly Reina MD FACR Lumbar Puncture Fluoroscopy 08/08/17 0000 Signed Impressions: Service Date/Time: Tuesday, August 08, 2017 15:42 - CONCLUSION: Uncomplicated fluoroscopically guided lumbar puncture. Fady Chan MD Needle Biopsy/Aspiration X-Ray 07/31/17 0000 Signed Impressions: Service Date/Time: Monday, July 31, 2017 13:29 - CONCLUSION: Uncomplicated needle biopsy of the L4/L5 disc space as above. Candelario Reina MD Abdomen/Pelvis CT 07/29/17 0000 Signed Impressions: Service Date/Time: Saturday, July 29, 2017 22:14 - CONCLUSION: 1. Significant new prevertebral soft tissue fullness and stranding centered at the L5 level. There is associated sclerosis and erosive changes in the anterior L5 vertebral body which appear unchanged from recent exams. Overall, findings are concerning for discitis and osteomyelitis. Consider repeat MRI examination for further evaluation. 2. 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 However, evaluation is significantly limited due to lack of IV contrast on this exam. This was not present on remote prior CT exam. A mycotic aneurysm cannot be entirely excluded. Contrast enhanced examination would be greatly beneficial in further evaluation. 3. Nodular appearing liver contour consistent with cirrhosis. 4. IVC filter in place. 5. Cholelithiasis. Tanner Jones MD Objective Remarks GENERAL: Awake alert and oriented 3 well-developed well-nourished SKIN: Warm and dry. CARDIOVASCULAR: Regular rate and rhythm. S1-S2 no S3 or S4 RESPIRATORY: No accessory muscle use. Clear to auscultation. Breath sounds equal bilaterally. GASTROINTESTINAL: Abdomen soft, non-tender, nondistended. MUSCULOSKELETAL: Extremities without clubbing, cyanosis, or edema. No obvious deformities. NEUROLOGICAL: Awake and alert. No obvious cranial nerve deficits. Motor grossly within normal limits. 4 out of 5 muscle strength in the arms and legs. Normal speech. PSYCHIATRIC: Appropriate mood and affect; insight and judgment normal. Procedures CT-guided removal of fluid for culture as well as disc biopsy L4-5 on 07/31/17 08/14/17 lateral oblique approach for drainage of lumbar retroperitoneal and bilateral psoas muscle abscess 08/30/1753-[id number] needle aspiration of psoas muscle abscess. . 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 Osteomyelitis of the L5 vertebra/bilateral psoas muscle abscess/ bacteremia Status post CT-guided removal of fluid for culture as well as disc biopsy on 07/31. Appreciate neurosurgery, vascular surgery, infectious disease recommendations. Status post drainage of abscess on 08/14/17. Wound culture is negative. Mycobacterial and fungal cultures are negative. Bacteremia with Strep Anginosis. - 08/28 as per neurosurgery recommendations the patient will need at least 6 weeks of IV antibiotics then follow-up imaging study before consideration for procedure. - 09/04 discussed the case with Dr. Goldstein from infectious disease. Recommend continuation of IV Rocephin every 12 hours since 08/03. As per ID stop date cannot be provided. Patient is also not a safe discharge as he did drugs in the hospital. 2. Encephalopathy Likely toxic secondary to drug abuse. S/P lumbar puncture. Evaluated by psychiatry, patient is capable of making decisions. - resolved. - Avoid overly sedating medications. 3. Cocaine abuse Urine toxicology positive for cocaine. There was concern that the patient may have used cocaine while in the hospital as his urine drug screen was positive 8 days after admission. - cessation instruction. - Visitors allowed again. 4. Right iliac artery aneurysm Patient noted to have a 2.9 cm aneurysm of the right internal iliac artery, possibly mycotic aneurysm. This was an incidental finding. He denies IV drug abuse. Appreciate vascular surgery recommendations. - No surgery planned at this time. 5. Chronic kidney disease stage II with acute kidney injury. Creatinine seems stable. - monitor and avoid nephrotoxins. 6. Hypoglycemia Episodes of low blood sugar into the 60s. Blood sugars more stable. - ADAT. Continue Ensure. 09/04 insulin level elevated at 72.2 but was not hypoglycemic. The blood sugars are not associated with symptoms. 7. Anemia Seems chronic. Anemia likely multifactorial. Follow-up stool blood Hemoccult. -Hemoglobin stable. 8. Hypertension Blood pressure well controlled. -Clonidine discontinued - continue amlodipine. 9. Sarcoidosis on chronic prednisone. 10. HBS antigen positive. Precautions. Outpatient follow-up DVT prophylaxis: SCDs and Lovenox subcutaneously. Darion Cameron MD Sep 11, 2017 08:05
[2017-09-11] MEDS: predniSONE 10 MG TAB PO SCH (08:45)
[2017-09-11] MEDS: GABAPENTIN 300 MG CAP PO SCH ×2 (08:46→20:36)
[2017-09-11] MEDS: DOCUSATE SODIUM 50 MG/SENNA 8.6 MG TAB PO SCH ×2 (08:46→20:37)
[2017-09-11] MEDS: FAMOTIDINE 20 MG TAB PO SCH ×2 (08:46→20:37)
[2017-09-11] MEDS: cefTRIAXone INJ 2,000 MG in SODIUM CHLORIDE 0.9% INJ 100 ML IV SCH ×2 (08:48→16:05)
[2017-09-11] MEDS: LACTIC ACID (AMMONIUM LACTATE) 12% LOTION 225 GM BTL TOPICAL SCH ×4 (08:49→20:38)
[2017-09-11] MEDS: POLYETHYLENE GLYCOL 17 GM PKG PO SCH (08:49)
[2017-09-11] MEDS: SODIUM CHLORIDE 0.9% FLUSH 10 ML FLUSH IV FLUSH SCH ×2 (08:50→20:36)
[2017-09-11 12:00] VITALS: BP 136/86; PULSE 98; RESP 18; TEMP 98; O2SAT 93
[2017-09-11 16:00] VITALS: BP 158/91; PULSE 103; RESP 18; TEMP 97.6; O2SAT 99
[2017-09-11] MEDS: ENOXAPARIN SODIUM 40 MG/0.4 ML SYRINGE SQ SCH (16:04)
--- NOTE | 2017-09-11 16:15 | HHI.HCPN ---
Reason for visit a. To assist with evaluation and management of symptoms including: Pain, anxiety,debility b. To assist medical decision maker(s) with: better understanding of current medical conditions; weighing benefits/burdens of medical treatment options; making medical treatment decisions. . Subjective/Interval History Follow-up medically necessary for symptom management. Patient examined in his room. Remains alert, oriented to self, place and situation. Patient currently denies pain. Patient stating that he has been working with physical therapy and he feels like his pain is better managed. Patient reports that when he gets pain medication, his pain is relieved and wearing a back brace when he is out of bed helps a lot. Pain gets exacerbated with activity and sometimes repositioning. Gabapentin was changed to 600 mg twice daily on from 300 mg 3 times daily. Pain is also managed with oxycodone/acetaminophen . Patient required 5 prn doses Oxycodone in the last 24 hours. He also has Flexeril prn. Last doses administered 09/09/17. Interim course: * Laboratory workup on 09/08/17 revealed WBC 5.9, hemoglobin 9.3, hematocrit 29.7 , platelet count 143, potassium 4.9, BUN/creatinine 33/1.55, AST 49, ALT 29, alkaline phosphatase 254, total protein 8.8, albumin 2.2 * Wound culture from retroperitoneal fluid(CT-guided needle aspiration of psoas muscle abscess) collected on 08/30/17 showed no growth in 72 hours Patient is happy that his family and friends has been visiting with him since the of his brother. Patient able to explain the treatment plan as he has been updated by physicians. Patient understands that he has to be on antibiotic therapy for a long time. He feels that clinically he is getting better and he is hopeful that the follow up MRI will show improvement. Patient`s goals remain aggressive. Infectious disease following, recommended patient continuing with antibiotics with no set stop date for now. Patient recommended to complete his antibiotic therapy in house due to likelihood of noncompliance in an unsupervised environment. He will also require follow-up imaging before consideration of any surgical intervention. Physical therapy and Occupational Therapy following. . Family/friend interactions No family at bedside. . Advance Directives Living Will: Never completed Health Care Surrogate: Copy in medical record Durable Power of Claims Processor: Never completed Advance Directive Specifics Date completed: 08/09/2017 . Health Care Surrogate(s): Healthcare surrogate-Friend- Jennifer Arrietao- [phone] Alternate healthcare surrogate -Son-Kalyan Gee Tv-[phone]/ 3rd choice- If the above-mentioned are not able to serve, patient designated his ex- -Kelly Gee as his second Alternate healthcare surrogate . Documented care wishes: No written documentation of health care goals/preferences . Objective Vital Signs Date Time Temp Pulse Resp B/P (MAP) Pulse Ox O2 Delivery O2 Flow Rate FiO2 09/11/17 08:00 97.6 94 18 121/83 (96) 95 09/11/17 00:00 97.9 96 20 129/71 (90) 100 09/10/17 20:00 97.7 105 20 124/79 (94) 96 09/10/17 16:00 98.0 111 18 115/69 (84) 96 Intake & Output 09/11/17 09/11/17 07:00 19:00 Intake Total 100 ml Output Total 1400 ml Balance -1300 ml IV Total 100 ml Output Urine Total 1400 ml # Voids 1 Physical Exam CONSTITUTIONAL/GENERAL: This is an adequately nourished patient, in no acute distress TUBES/LINES/DRAINS:PIV SKIN: Dry. Normothermic. Surgical incision to left lateral abdomen healed, no lamin, no reddening, no drainage. ENT: Hearing grossly normal. Nose without bleeding or purulent drainage. Moist oral mucosa CARDIOVASCULAR: S1, S2 normal, no audible murmurs, gallops, or rubs. No JVD. RESPIRATORY/CHEST: Symmetric, unlabored respirations. Clear to auscultation. GASTROINTESTINAL: Abdomen soft, non-tender, nondistended. No guarding. Bowel sounds present. MUSCULOSKELETAL: Extremities without clubbing, cyanosis, or edema. NEUROLOGICAL: Awake and alert. Oriented to self, place and situation. Follows commands with all 4 extremities. PSYCHIATRIC: No obvious anxiety/depression. No apparent hallucinations or other psychotic thought process. . Diagnostic Tests Result Diagram: 09/08/1752109/08/1722 Procedures 08/08/17 needle biopsy of the L4/L5 disc space/aspiration x-ray 08/14/17-lateral oblique approach for drainage of lumbar retroperitoneal and bilateral psoas muscle abscess by neurosurgery 08/14/17-Retroperitoneal approach to the psoas muscle and drainage of psoas abscess and paraspinal abscess drainage by general surgery 08/30/1706-[id number]-[id number] needle aspiration of psoas muscle abscess. . Assessment and Plan Disease Oriented Problem List: (1) Osteomyelitis (2) Cocaine abuse (3) Mycotic aneurysm (4) CKD (chronic kidney disease) stage 3, GFR 30-59 ml/min Comment: Improving. . (5) Hypertension (6) Rheumatoid arthritis Symptom Scale: (1) Pain 0-10 Scale: 10 Comment: All his pain complaints are low back. Inadequately helped by current regimen. Pain normally 9-10 decreasing to 8-9 after parenteral hydromorphone. . . (2) Anxiety Comment: Patient reported to psychiatry that he was feeling anxious . (3) Debility Comment: Progressive . Pertinent Non-Medical Issues Psychosocial:Patient was born and raised in [place]. Patient is . Patient's highest level of education is high school. He is currently unemployed and disabled. Patient has 1 son Gerard Biggs Jr. He has been living with his nephew Jennifer Kendrick for the past 4 years. Spiritual: Patient is [place] Legal: No living will. Health care surrogate designation completed 08/09/17 -- he wants his friend Jennifer Manuel to serve. Ethical issues impacting care: None identified at this time . Important Contacts Mireille Rodriguez (Health care surrogate and close friend) -[phone]/ (he has been living with patient for the past 4 years) Kalyan Gee Jr (son and alternate [facility]) - [phone] Cell/[phone] work Kelly Gee (ex- and 2nd alternate [facility]) Patricia Joy ( of Jennifer Manuel) [phone] Brother- Miles Gee [phone] PATIENT HAS GIVEN PERMISSION TO DISCUSS DETAILS OF HIS CASE AND CARE WITH THE ABOVE. . . Prognosis Mr. Gee is a 57-year-old male with a past medical history significant for chronic back pain, lumbar osteomyelitis and discitis s/p L4-L5 laminectomy 2014 , rheumatoid arthritis, hyperlipidemia, chronic kidney stage III, cocaine abuse and tobacco abuse. Patient presented to the ER on 07/29/17 with complaints of severe back pain. Diagnostic tests revealed lumbar osteomyelitis with retroperitoneal/prevertebral abscess. Clinical course complicated with pain, anxiety and early recurrence of psoas abscess. Imaging has shown worsening infection over course of hospitalization. Patient underwent lateral oblique approach for drainage of lumbar retroperitoneal and bilateral psoas muscle abscess on 08/14/17. 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 Last MRI 08/28/17 of lumbar spine showing recurrent psoas abscess. Prognosis appears poor. . Code Status: Full Code Plan PLAN: CODE STATUS: Full code Legal decision maker: Patient has been deemed capacitated to participate in medical decision making by psychiatry on 08/08/17. In the event that he is incapacitated, patient has designated his friend Jennifer Kendrick to serve as his health care surrogate, and his son Gerard Hull Jr as his alternate healthcare surrogate and if the above mentioned are not able to serve, he chose his ex- Kelly Gee as his other alternate Healthcare Surrogate. Goals: Remain aggressive. Patient feels that clinically he is getting better and he is hopeful that the follow up MRI will show improvement. He remains on antibiotic therapy with no stop date at this time. Patient will receive antibiotic therapy in-house due to likelihood of noncompliance in an unsupervised environment. SYMPTOMS: * Pain: Patient complaining of severe lower back pain. Patient had osteomyelitis and is s/p drainage of lumbar retroperitoneal and bilateral psoas muscle abscess 08/14/17. Pain medication and muscle relaxant appears adequate. * Anxiety: Patient reported to psychiatry that he feels anxious. Has lorazepam ordered q 2 hours prn. Appears to be adequate. Denies feeling anxious. No further recommendation at this time. * Debility: Prolonged hospitalization. Physical therapy recommending PT at Rehab. Patient ambulating from bed to bedside commode with a walker. PT and OT following. Patient ambulating short distances and states that his distance is limited with pain. Encouraged patient to request pain medication 15-20minutes prior to ambulating with PT. == Palliative care will continue to follow to assist with symptom management and to further clarify goals of medical treatment as the clinical course evolves. . Attestation To help prompt me to consider important information that might be impacting today's encounter and assessment, information from prior notes written by myself or my colleagues may have been "brought forward" into today's note. My signature on this note, however, is an attestation that I personally performed the exam, history, and/or decision-making noted today, and, unless otherwise indicated, the interactions with patient, family, and staff as well as the review of records all occurred today. I also attest that the listed assessment and stated plan reflect my best clinical judgment today based on the combination of historical information, prior notes, and today's exam/ interactions. When time spent is documented, it refers only to time spent today by the signer, or if indicated, combined time spent today by collaborating physician/nurse practitioner. Erasmo Vieyra Sep 11, 2017 16:15
[2017-09-11 20:00] VITALS: BP 144/99; PULSE 103; RESP 20; TEMP 97.5; O2SAT 94
[2017-09-12] VITALS: BP 146/96; PULSE 97; RESP 18; TEMP 97.9; O2SAT 95
[2017-09-12] MEDS: oxyCODONE/ACETAMINOPHEN 5 MG/325 MG TAB PO PRN ×4 (07:01→21:39)
[2017-09-12 08:00] VITALS: BP 175/112; PULSE 93; RESP 17; TEMP 97.4; O2SAT 97
[2017-09-12] MEDS: POLYETHYLENE GLYCOL 17 GM PKG PO SCH (09:00)
[2017-09-12] MEDS: LACTIC ACID (AMMONIUM LACTATE) 12% LOTION 225 GM BTL TOPICAL SCH ×4 (09:00→21:40)
[2017-09-12] MEDS: SODIUM CHLORIDE 0.9% FLUSH 10 ML FLUSH IV FLUSH SCH ×2 (09:00→21:38)
[2017-09-12] MEDS: FAMOTIDINE 20 MG TAB PO SCH ×2 (09:04→21:40)
[2017-09-12] MEDS: predniSONE 10 MG TAB PO SCH (09:04)
[2017-09-12] MEDS: GABAPENTIN 300 MG CAP PO SCH ×2 (09:05→21:38)
[2017-09-12] MEDS: DOCUSATE SODIUM 50 MG/SENNA 8.6 MG TAB PO SCH ×2 (09:05→21:40)
[2017-09-12] MEDS: cefTRIAXone INJ 2,000 MG in SODIUM CHLORIDE 0.9% INJ 100 ML IV SCH ×2 (09:10→21:41)
--- NOTE | 2017-09-12 09:31 | HHI.PR ---
Subjective Remarks Follow-up lumbar osteomyelitis. Patient has no new complaints states he has been ambulating with a brace. Objective Vitals Vital Signs Date Time Temp Pulse Resp B/P (MAP) Pulse Ox O2 Delivery O2 Flow Rate FiO2 09/12/17 08:00 97.4 93 17 175/112 (133) 97 09/12/17 00:00 97.9 97 18 146/96 (113) 95 09/11/17 20:00 97.5 103 20 144/99 (114) 94 09/11/17 16:00 97.6 103 18 158/91 (113) 99 09/11/17 12:00 98.0 98 18 136/86 (103) 93 I/O 09/11/17 09/11/17 09/11/17 09/12/17 09/12/17 09/12/17 07:00 15:00 23:00 07:00 15:00 23:00 Intake Total 100 ml 1920 ml Output Total 2100 ml 1800 ml Balance 100 ml -180 ml -1800 ml Intake Oral 1920 ml IV Total 100 ml Output Urine Total 2100 ml 1800 ml # Voids 1 # Bowel Movements 1 Result Diagram: 09/08/17 0522 09/08/17 0522 Imaging Last Impressions Needle Aspiration CT 08/30/17 1356 Signed Impressions: CONCLUSION: 1. Uncomplicated procedure as above. Lumbar Spine CT 08/29/17 0000 Signed Impressions: CONCLUSION: 1. There is destructive changes involving the disc space at L4-5 characteristi c for discitis. 2. There are destructive changes predominantly in the body of L5 consistent wi th osteomyelitis. There is prominent paraspinal soft tissue swelling at the L4- L5 level. 3. Mild grade 1 anterior spondylolisthesis of L4 over L5. 4. Limited visualization of the spinal canal at L4-5 due to the inflammatory c hanges. 5. Bilateral facet arthritis at multiple levels. 6. Broad-based bulging at L2-3 and L3-4. Lumbar Spine MRI 08/28/17 0000 Signed Impressions: CONCLUSION: 1. Improvement as above. Persistent fluid remains on the left. Persistent evid ence for inflammatory process remains at the L4-5 disc. 2. Less inflammatory changes in the retroperitoneum. Chest X-Ray 08/15/17 0000 Signed Impressions: Service Date/Time: Tuesday, August 15, 2017 11:34 - CONCLUSION: Mild compensated cardiomegaly Roly Reina MD FACR Lumbar Puncture Fluoroscopy 08/08/17 0000 Signed Impressions: Service Date/Time: Tuesday, August 08, 2017 15:42 - CONCLUSION: Uncomplicated fluoroscopically guided lumbar puncture. Fady Chan MD Needle Biopsy/Aspiration X-Ray 07/31/17 0000 Signed Impressions: Service Date/Time: Monday, July 31, 2017 13:29 - CONCLUSION: Uncomplicated needle biopsy of the L4/L5 disc space as above. Candelario Reina MD Abdomen/Pelvis CT 07/29/17 0000 Signed Impressions: Service Date/Time: Saturday, July 29, 2017 22:14 - CONCLUSION: 1. Significant new prevertebral soft tissue fullness and stranding centered at the L5 level. There is associated sclerosis and erosive changes in the anterior L5 vertebral body which appear unchanged from recent exams. Overall, findings are concerning for discitis and osteomyelitis. Consider repeat MRI examination for further evaluation. 2. 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 However, evaluation is significantly limited due to lack of IV contrast on this exam. This was not present on remote prior CT exam. A mycotic aneurysm cannot be entirely excluded. Contrast enhanced examination would be greatly beneficial in further evaluation. 3. Nodular appearing liver contour consistent with cirrhosis. 4. IVC filter in place. 5. Cholelithiasis. Tanner Jones MD Objective Remarks GENERAL: Awake alert and oriented 3 well-developed well-nourished CARDIOVASCULAR: Regular rate and rhythm. S1-S2 no S3 or S4 RESPIRATORY: No accessory muscle use. Clear to auscultation. Breath sounds equal bilaterally. GASTROINTESTINAL: Abdomen soft, non-tender, nondistended. MUSCULOSKELETAL: Extremities without clubbing, cyanosis, or edema. No obvious deformities. NEUROLOGICAL: Awake and alert. No obvious cranial nerve deficits. Motor grossly within normal limits. 4 out of 5 muscle strength in the arms and legs. Normal speech. Procedures CT-guided removal of fluid for culture as well as disc biopsy L4-5 on 07/31/17 08/14/17 lateral oblique approach for drainage of lumbar retroperitoneal and bilateral psoas muscle abscess 08/30/1705-LO-[id number] needle aspiration of psoas muscle abscess. . 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 Osteomyelitis of the L5 vertebra/bilateral psoas muscle abscess/ bacteremia Status post CT-guided removal of fluid for culture as well as disc biopsy on 07/31. Appreciate neurosurgery, vascular surgery, infectious disease recommendations. Status post drainage of abscess on 08/14/17. Wound culture is negative. Mycobacterial and fungal cultures are negative. Bacteremia with Strep Anginosis. - 08/28 as per neurosurgery recommendations the patient will need at least 6 weeks of IV antibiotics then follow-up imaging study before consideration for procedure. - 09/04 discussed the case with Dr. Goldstein from infectious disease. Recommend continuation of IV Rocephin every 12 hours since 08/03. As per ID stop date cannot be provided. Patient is also not a safe discharge as he did drugs in the hospital. 2. Encephalopathy Likely toxic secondary to drug abuse. S/P lumbar puncture. Evaluated by psychiatry, patient is capable of making decisions. - resolved. - Avoid overly sedating medications. 3. Cocaine abuse Urine toxicology positive for cocaine. There was concern that the patient may have used cocaine while in the hospital as his urine drug screen was positive 8 days after admission. - cessation instruction. - Visitors allowed again. 4. Right iliac artery aneurysm Patient noted to have a 2.9 cm aneurysm of the right internal iliac artery, possibly mycotic aneurysm. This was an incidental finding. He denies IV drug abuse. Appreciate vascular surgery recommendations. - No surgery planned at this time. 5. Chronic kidney disease stage II with acute kidney injury. Creatinine seems stable. - monitor and avoid nephrotoxins. 6. Hypoglycemia Episodes of low blood sugar into the 60s. Blood sugars more stable. - ADAT. Continue Ensure. 09/04 insulin level elevated at 72.2 but was not hypoglycemic. The blood sugars are not associated with symptoms. 7. Anemia Seems chronic. Anemia likely multifactorial. Follow-up stool blood Hemoccult. -Hemoglobin stable. 8. Hypertension Blood pressure well controlled. -Clonidine discontinued - continue amlodipine. 9. Sarcoidosis on chronic prednisone. 10. HBS antigen positive. Precautions. Outpatient follow-up DVT prophylaxis: SCDs and Lovenox subcutaneously. Darion Cameron MD Sep 12, 2017 09:31
--- NOTE | 2017-09-12 11:06 | HHI.HCPN ---
Reason for visit a. To assist with evaluation and management of symptoms including: Pain, anxiety,debility b. To assist medical decision maker(s) with: better understanding of current medical conditions; weighing benefits/burdens of medical treatment options; making medical treatment decisions. . Subjective/Interval History Follow-up medically necessary for symptom management. Patient seen and examined in his room. Patient is in bed, awake watching television. Patient remains alert, oriented to self, place and situation. Patient currently denies pain. Pain continues to be well managed with Percocet 5/325, gabapentin and Flexeril. Patient required 4 prn of Percocet in the past 24 hours. Last bowel movement today. Patient is in a good mood today, states that he keeps himself busy watching television so that he does not get discouraged with his lengthy hospitalization. Patient concerned that he is gaining weight and that he is trying not to eat much of his lunch and his dinner. Goals remain aggressive. . Family/friend interactions No family at bedside . Advance Directives Living Will: Never completed Health Care Surrogate: Copy in medical record Durable Power of Log Clerk: Never completed Advance Directive Specifics Date completed: 08/09/2017 . Health Care Surrogate(s): Healthcare surrogate-Friend- Jennifer Kendrick- [phone] Alternate healthcare surrogate -Son-Kalyan Gee Fp-[phone]/ 3rd choice- If the above-mentioned are not able to serve, patient designated his ex- -Kelly Gee as his second Alternate healthcare surrogate . Documented care wishes: No written documentation of health care goals/preferences . Objective Vital Signs Date Time Temp Pulse Resp B/P (MAP) Pulse Ox O2 Delivery O2 Flow Rate FiO2 09/12/17 08:00 97.4 93 17 175/112 (133) 97 09/12/17 00:00 97.9 97 18 146/96 (113) 95 09/11/17 20:00 97.5 103 20 144/99 (114) 94 09/11/17 16:00 97.6 103 18 158/91 (113) 99 09/11/17 12:00 98.0 98 18 136/86 (103) 93 Intake & Output 09/12/17 09/12/17 07:00 19:00 Output Total 1800 ml Balance -1800 ml Output Urine Total 1800 ml Physical Exam CONSTITUTIONAL/GENERAL: This is an adequately nourished patient, in no acute distress TUBES/LINES/DRAINS:PIV SKIN: Dry. Normothermic. Surgical incision to left lateral abdomen healed, no lamin, no reddening, no drainage. ENT: Hearing grossly normal. Nose without bleeding or purulent drainage. Moist oral mucosa CARDIOVASCULAR: S1, S2 normal, no audible murmurs, gallops, or rubs. No JVD. RESPIRATORY/CHEST: Symmetric, unlabored respirations. Clear to auscultation. GASTROINTESTINAL: Abdomen soft, non-tender, nondistended. Bowel sounds present. MUSCULOSKELETAL: Extremities without clubbing, cyanosis, or edema. NEUROLOGICAL: Awake and alert. Oriented to self, place and situation. Follows commands with all 4 extremities. PSYCHIATRIC: No obvious anxiety/depression. No apparent hallucinations or other psychotic thought process. . Diagnostic Tests Result Diagram: 09/08/17 0522 09/08/17 0522 Procedures 08/08/17 needle biopsy of the L4/L5 disc space/aspiration x-ray 08/14/17-lateral oblique approach for drainage of lumbar retroperitoneal and bilateral psoas muscle abscess by neurosurgery 08/14/17-Retroperitoneal approach to the psoas muscle and drainage of psoas abscess and paraspinal abscess drainage by general surgery 08/30/1748-[id number]-oyybok needle aspiration of psoas muscle abscess. . Assessment and Plan Disease Oriented Problem List: (1) Osteomyelitis (2) Cocaine abuse (3) Mycotic aneurysm (4) CKD (chronic kidney disease) stage 3, GFR 30-59 ml/min Comment: Improving. . (5) Hypertension (6) Rheumatoid arthritis Symptom Scale: (1) Pain 0-10 Scale: 10 Comment: All his pain complaints are low back. Inadequately helped by current regimen. Pain normally 9-10 decreasing to 8-9 after parenteral hydromorphone. . . (2) Anxiety Comment: Patient reported to psychiatry that he was feeling anxious . (3) Debility Comment: Progressive . Pertinent Non-Medical Issues Psychosocial:Patient was born and raised in [place]. Patient is . Patient's highest level of education is high school. He is currently unemployed and disabled. Patient has 1 son Gerard Biggs . He has been living with his nephew Jennifer Kendrick for the past 4 years. Spiritual: Patient is Adventism Legal: No living will. Health care surrogate designation completed 08/09/17 -- he wants his friend Jennifer Manuel to serve. Ethical issues impacting care: None identified at this time . Important Contacts Mireille Rodriguez (Health care surrogate and close friend) -[phone] (he has been living with patient for the past 4 years) GerardKalyan Jr (son and alternate HCS) - [phone] Cell/[phone] work Kelly Gee (ex- and 2nd alternate HCS) Patricia Joy ( of Jennifer Manuel) [phone] Brother- Miles Gee [phone] PATIENT HAS GIVEN PERMISSION TO DISCUSS DETAILS OF HIS CASE AND CARE WITH THE ABOVE. . . Prognosis Mr. Gee is a 57-year-old male with a past medical history significant for chronic back pain, lumbar osteomyelitis and discitis s/p L4-L5 laminectomy 2013 , rheumatoid arthritis, hyperlipidemia, chronic kidney stage III, cocaine abuse and tobacco abuse. Patient presented to the ER on 07/29/17 with complaints of severe back pain. Diagnostic tests revealed lumbar osteomyelitis with retroperitoneal/prevertebral abscess. Clinical course complicated with pain, anxiety and early recurrence of psoas abscess. Imaging has shown worsening infection over course of hospitalization. Patient underwent lateral oblique approach for drainage of lumbar retroperitoneal and bilateral psoas muscle abscess on 08/14/17. 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 Last MRI 08/28/17 of lumbar spine showing recurrent psoas abscess. Prognosis appears poor. . Code Status: Full Code Plan PLAN: CODE STATUS: Full code Legal decision maker: Patient has been deemed capacitated to participate in medical decision making by psychiatry on 08/08/17. In the event that he is incapacitated, patient has designated his friend Jennifer Kendrick to serve as his health care surrogate, and his son Gerard Hull Jr as his alternate healthcare surrogate and if the above mentioned are not able to serve, he chose his ex- Kelly Gee as his other alternate Healthcare Surrogate. Goals: No changes in goals. They remain aggressive. SYMPTOMS: * Pain: Patient complaining of severe lower back pain. Patient had osteomyelitis and is s/p drainage of lumbar retroperitoneal and bilateral psoas muscle abscess 08/14/17.Pain continues to be well managed with Percocet 5/325, gabapentin and Flexeril. Patient required 4 prn of Percocet in the past 24 hours. Pain medication and muscle relaxant appears adequate. * Anxiety: Patient reported to psychiatry that he feels anxious. Has lorazepam ordered q 2 hours prn. Appears to be adequate. No complaints of anxiety. Family has been visiting and talking to patient over the phone. No further recommendation at this time. * Debility: Prolonged hospitalization. Physical therapy recommending PT at Rehab. Patient ambulating from bed to bedside commode with a walker. PT and OT following. Patient ambulating short distances and states that his distance is limited with pain. Encouraged patient to request pain medication 15-20minutes prior to ambulating with PT. == Palliative care will continue to follow to assist with symptom management and to further clarify goals of medical treatment as the clinical course evolves. . Attestation To help prompt me to consider important information that might be impacting today's encounter and assessment, information from prior notes written by myself or my colleagues may have been "brought forward" into today's note. My signature on this note, however, is an attestation that I personally performed the exam, history, and/or decision-making noted today, and, unless otherwise indicated, the interactions with patient, family, and staff as well as the review of records all occurred today. I also attest that the listed assessment and stated plan reflect my best clinical judgment today based on the combination of historical information, prior notes, and today's exam/ interactions. When time spent is documented, it refers only to time spent today by the signer, or if indicated, combined time spent today by collaborating physician/nurse practitioner. Erasmo Vieyra Sep 12, 2017 11:06
[2017-09-12 12:00] VITALS: BP 146/82; PULSE 99; RESP 17; TEMP 97.1; O2SAT 98
[2017-09-12 16:00] VITALS: BP 177/94; PULSE 102; RESP 17; TEMP 97.4; O2SAT 96
[2017-09-12] MEDS: ENOXAPARIN SODIUM 40 MG/0.4 ML SYRINGE SQ SCH (16:44)
[2017-09-12 20:00] VITALS: BP 133/92; PULSE 104; RESP 18; TEMP 97.9; O2SAT 91
[2017-09-13] VITALS: BP 130/89; PULSE 105; RESP 18; TEMP 98.1; O2SAT 93
[2017-09-13] MEDS: oxyCODONE/ACETAMINOPHEN 5 MG/325 MG TAB PO PRN ×4 (04:14→17:13)
--- NOTE | 2017-09-13 07:27 | HHI.PR ---
Subjective Remarks F/u Lumbar OM. States he is trying to increase his activity wearing a lumbar brace Objective Vitals Vital Signs Date Time Temp Pulse Resp B/P (MAP) Pulse Ox O2 Delivery O2 Flow Rate FiO2 09/13/17 00:00 98.1 105 18 130/89 (103) 93 09/12/17 20:00 97.9 104 18 133/92 (106) 91 09/12/17 16:00 97.4 102 17 177/94 (121) 96 09/12/17 12:00 97.1 99 17 146/82 (103) 98 09/12/17 08:00 97.4 93 17 175/112 (133) 97 I/O 09/12/17 09/12/17 09/12/17 09/13/17 09/13/17 09/13/17 07:00 15:00 23:00 07:00 15:00 23:00 Intake Total 1300 ml 580 ml Output Total 1800 ml 1925 ml 1500 ml Balance -1800 ml -625 ml -920 ml Intake Oral 1300 ml 480 ml IV Total 100 ml Output Urine Total 1800 ml 1925 ml 1500 ml # Bowel Movements 1 1 Imaging Last Impressions Needle Aspiration CT 08/30/17 1356 Signed Impressions: CONCLUSION: 1. Uncomplicated procedure as above. Lumbar Spine CT 08/29/17 0000 Signed Impressions: CONCLUSION: 1. There is destructive changes involving the disc space at L4-5 characteristi c for discitis. 2. There are destructive changes predominantly in the body of L5 consistent wi th osteomyelitis. There is prominent paraspinal soft tissue swelling at the L4- L5 level. 3. Mild grade 1 anterior spondylolisthesis of L4 over L5. 4. Limited visualization of the spinal canal at L4-5 due to the inflammatory c hanges. 5. Bilateral facet arthritis at multiple levels. 6. Broad-based bulging at L2-3 and L3-4. Lumbar Spine MRI 08/28/17 0000 Signed Impressions: CONCLUSION: 1. Improvement as above. Persistent fluid remains on the left. Persistent evid ence for inflammatory process remains at the L4-5 disc. 2. Less inflammatory changes in the retroperitoneum. Chest X-Ray 08/15/17 0000 Signed Impressions: Service Date/Time: Tuesday, August 15, 2017 11:34 - CONCLUSION: Mild compensated cardiomegaly Roly Reina MD FACR Lumbar Puncture Fluoroscopy 5/9/18 0000 Signed Impressions: Service Date/Time: Tuesday, August 08, 2017 15:42 - CONCLUSION: Uncomplicated fluoroscopically guided lumbar puncture. Fady Chan MD Needle Biopsy/Aspiration X-Ray 07/31/17 0000 Signed Impressions: Service Date/Time: Monday, July 31, 2017 13:29 - CONCLUSION: Uncomplicated needle biopsy of the L4/L5 disc space as above. Candelario Reina MD Abdomen/Pelvis CT 07/29/17 0000 Signed Impressions: Service Date/Time: Saturday, July 29, 2017 22:14 - CONCLUSION: 1. Significant new prevertebral soft tissue fullness and stranding centered at the L5 level. There is associated sclerosis and erosive changes in the anterior L5 vertebral body which appear unchanged from recent exams. Overall, findings are concerning for discitis and osteomyelitis. Consider repeat MRI examination for further evaluation. 2. 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 However, evaluation is significantly limited due to lack of IV contrast on this exam. This was not present on remote prior CT exam. A mycotic aneurysm cannot be entirely excluded. Contrast enhanced examination would be greatly beneficial in further evaluation. 3. Nodular appearing liver contour consistent with cirrhosis. 4. IVC filter in place. 5. Cholelithiasis. Tanner Jones MD Objective Remarks GENERAL: Awake alert and oriented 3 well-developed well-nourished CARDIOVASCULAR: Regular rate and rhythm. S1-S2 no S3 or S4 RESPIRATORY: No accessory muscle use. Clear to auscultation. Breath sounds equal bilaterally. GASTROINTESTINAL: Abdomen soft, non-tender, nondistended. MUSCULOSKELETAL: Extremities without clubbing, cyanosis, or edema. No obvious deformities. NEUROLOGICAL: Awake and alert. No obvious cranial nerve deficits. Motor grossly within normal limits. 4 out of 5 muscle strength in the arms and legs. Normal speech. Procedures CT-guided removal of fluid for culture as well as disc biopsy L4-5 on 07/31/17 08/14/17 lateral oblique approach for drainage of lumbar retroperitoneal and bilateral psoas muscle abscess 08/30/1748-[id number]-yyrevx needle aspiration of psoas muscle abscess. . 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 Osteomyelitis of the L5 vertebra/bilateral psoas muscle abscess/ bacteremia Status post CT-guided removal of fluid for culture as well as disc biopsy on 07/31. Appreciate neurosurgery, vascular surgery, infectious disease recommendations. Status post drainage of abscess on 08/14/17. Wound culture is negative. Mycobacterial and fungal cultures are negative. Bacteremia with Strep Anginosis. - 08/28 as per neurosurgery recommendations the patient will need at least 6 weeks of IV antibiotics then follow-up imaging study before consideration for procedure. - 09/04 discussed the case with Dr. Goldstein from infectious disease. Recommend continuation of IV Rocephin every 12 hours since 08/03. As per ID stop date cannot be provided. Patient is also not a safe discharge as he did drugs in the hospital. 2. Encephalopathy Likely toxic secondary to drug abuse. S/P lumbar puncture. Evaluated by psychiatry, patient is capable of making decisions. - resolved. - Avoid overly sedating medications. 3. Cocaine abuse Urine toxicology positive for cocaine. There was concern that the patient may have used cocaine while in the hospital as his urine drug screen was positive 8 days after admission. - cessation instruction. - Visitors allowed again. 4. Right iliac artery aneurysm Patient noted to have a 2.9 cm aneurysm of the right internal iliac artery, possibly mycotic aneurysm. This was an incidental finding. He denies IV drug abuse. Appreciate vascular surgery recommendations. - No surgery planned at this time. 5. Chronic kidney disease stage II with acute kidney injury. Creatinine seems stable. - monitor and avoid nephrotoxins. 6. Hypoglycemia Episodes of low blood sugar into the 60s. Blood sugars more stable. - ADAT. Continue Ensure. 09/04 insulin level elevated at 72.2 but was not hypoglycemic. The blood sugars are not associated with symptoms. 7. Anemia Seems chronic. Anemia likely multifactorial. Follow-up stool blood Hemoccult. -Hemoglobin stable. 8. Hypertension Blood pressure well controlled. -Clonidine discontinued - continue amlodipine. 9. Sarcoidosis on chronic prednisone. 10. HBS antigen positive. Precautions. Outpatient follow-up DVT prophylaxis: SCDs and Lovenox subcutaneously. Darion Cameron MD Sep 13, 2017 07:27
[2017-09-13 08:00] VITALS: BP 146/102; PULSE 95; RESP 17; TEMP 97.8; O2SAT 94
[2017-09-13] MEDS: predniSONE 10 MG TAB PO SCH (09:14)
[2017-09-13] MEDS: DOCUSATE SODIUM 50 MG/SENNA 8.6 MG TAB PO SCH ×2 (09:14→21:03)
[2017-09-13] MEDS: GABAPENTIN 300 MG CAP PO SCH ×2 (09:15→21:03)
[2017-09-13] MEDS: POLYETHYLENE GLYCOL 17 GM PKG PO SCH (09:15)
[2017-09-13] MEDS: LACTIC ACID (AMMONIUM LACTATE) 12% LOTION 225 GM BTL TOPICAL SCH ×4 (09:16→21:11)
[2017-09-13] MEDS: SODIUM CHLORIDE 0.9% FLUSH 10 ML FLUSH IV FLUSH SCH ×2 (09:16→21:04)
[2017-09-13] MEDS: FAMOTIDINE 20 MG TAB PO SCH ×2 (09:16→21:04)
[2017-09-13] MEDS: cefTRIAXone INJ 2,000 MG in SODIUM CHLORIDE 0.9% INJ 100 ML IV SCH ×2 (09:27→21:04)
--- NOTE | 2017-09-13 10:55 | HHI.NSPN ---
(Apolinar Argueta) History Chief Complaint: Right lower back pain (Apolinar Argueta) Interval History 08/14: The patient went for a lateral oblique/retroperitoneal approach for drainage of lumbar retroperitoneal and bilateral psoas muscle abscess by Neurosurgery and General Surgery. Post-operatively the patient was admitted to the ISC unit for further care and monitoring. 08/15: The patient is awake in bed this afternoon when seen. He does have pain to the left lateral abdominal wall/flank at the surgical incisions. He denies any back or lower extremity pain. He has no numbness or tingling to the lower extremities. There are no evident sensorimotor deficits noted upon examination. 08/20: The patient is asleep when seen but awakens to voice. After that he is awake and alert. He denies any back or lower extremity pain. He has numbness to both feet but only when he stands, otherwise he has no numbness to the lower extremities. He had no numbness to the feet when examined and his muscle strength was normal. He did say that he had some incisional pain but only when he is getting up "or something like that." 08/21: When seen this morning the patient is awake in bed watching TV. He had no complaints but endorsed intermittent back pain. He also endorsed some mild tenderness at the left anterolateral abdominal wall surgical incision. The ALY drains were removed yesterday per General Surgery. There is no change noted in his physical exam. 08/22: This morning the patient is awake in bed watching TV. He did say he had some back pain during the night but had no other complaints. Upon evaluation his midline and lateral back were nontender and there was no change noted in his sensorimotor exam. 08/23: The patient is awake in bed watching TV this morning. He had no complaints and states he is doing alright. He has not had any further back pain since yesterday. His exam is unremarkable from yesterday. 08/24: When seen the patient was awake in bed watching TV. 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 He attributed some of his pain to the bed. He did say it was better but still present. He denied any pain, numbness or tingling into the lower extremities. There was no change in his sensorimotor exam. He was mildly tender to palpation along the left psoas muscle and into the left gluteal muscle. 08/25: This afternoon the patient is awake and watching TV when seen. He did say that he had some slight pain to the back earlier. He denies any pain along the surgical incision. He has no change in his sensorimotor exam. 08/28: The patient reports a sharp pain radiating from the back into the lower extremities when he stands. He also has numbness to the feet. 08/30/2017: Complains of persistent low back pain with some radiation to the proximal right thigh. CT guided aspiration of recurrent psoas muscle abscess per interventional radiology. 09/06: The patient complains of pain to the back when seen this morning. He stated that it recently started and is severe enough to make him cry at times. When asked where the pain is he indicates the right psoas muscle region. He states that the pain does go down into the right thigh at times. When he lays with his knees flexed it does relieve the pain. He had no midline pain upon palpation but was tender to the right psoas. He had no deficits in his sensorimotor exam. He did have referred pain to the back with muscle strength testing. 09/13: When seen this morning the patient is awake visiting with a friend and watching TV. He continues to have some pain to the right medial low back and is minimally tender at the medial right psoas. There is no change in his sensorimotor exam. Patient states that he did get up yesterday and ambulate with Physical Therapy. (Apolinar Argueta) Exam Results 09/11/17 09/11/17 09/12/17 09/12/17 09/13/17 09/13/17 06: 18: 06: 18: 06: 18:00 Intake Total 2020 ml 1300 ml 580 ml Output Total 2100 ml 3725 ml 1500 ml Balance -80 ml -2425 ml -920 ml Intake Oral 1920 ml 1300 ml 480 ml IV Total 100 ml 100 ml Output Urine Total 2100 ml 3725 ml 1500 ml # Voids 1 # Bowel Movements 1 1 1 Vital Signs Date Time Temp Pulse Resp B/P (MAP) Pulse Ox O2 Delivery O2 Flow Rate FiO2 6/14/18 08:00 97.8 95 17 146/102 (117) 94 09/13/17 00:00 98.1 105 18 130/89 (103) 93 09/12/17 20:00 97.9 104 18 133/92 (106) 91 09/12/17 16:00 97.4 102 17 177/94 (121) 96 09/12/17 12:00 97.1 99 17 146/82 (103) 98 09/12/17 08:00 97.4 93 17 175/112 (133) 97 09/12/17 00:00 97.9 97 18 146/96 (113) 95 09/11/17 20:00 97.5 103 20 144/99 (114) 94 09/11/17 16:00 97.6 103 18 158/91 (113) 99 09/11/17 12:00 98.0 98 18 136/86 (103) 93 09/11/17 08:00 97.6 94 18 121/83 (96) 95 09/11/17 00:00 97.9 96 20 129/71 (90) 100 09/10/17 20:00 97.7 105 20 124/79 (94) 96 09/10/17 16:00 98.0 111 18 115/69 (84) 96 09/10/17 12:00 97.5 104 18 135/98 (110) 96 (Apolinar Argueta) Physical Examination GENERAL: Awake in bed watching TV & visiting w/a friend. Affect essentially normal & readily interacts. No apparent distress. SKIN: Left anterolateral abdominal wall surgical incision healing w/o complication. HEENT: Normocephalic, atraumatic. GASTROINTESTINAL: Abdomen soft, nontender, surgical incision NTTP. MUSCULOSKELETAL: HUANG spontaneously & purposefully w/o difficulty. No evident clubbing or deformity. Midline lumbar spine NTTP. Minimally TTP to the right medial psoas region. NEUROLOGICAL: AAOx3. Speech clear & appropriate. Follows commands w/o difficulty. Sensation intact to light touch to the lower extremities except for chronically decrease to soles of both feet. Muscle strength is 5/5 to the lower extremities. (Apolinar Argueta) Medical Decision Making Impression and Plan Impression: 1, History of chronic L4-5 epidural abscess s/p laminectomy 2014 2. History of chronic low back pain. 3. L4-5 moderate spinal stenosis w/grade 1 spondylolisthesis 4. Prevertebral/retroperitoneal abscess 5. Possible L5 anterior osteomyelitis w/elevated sed rate and white count Postoperative Diagnosis: (1) Osteomyelitis (Neurosurgery) Lumbar discitis, osteomyelitis (Neurosurgery) Lumbar retroperitoneal-bilateral psoas abscess (Neurosurgery) Psoas abscess, paraspinal abscesses, sepsis. (General Surgery) Patient continues to have right psoas region pain. No sensorimotor deficits noted except for bottom of feet which have chronically decreased sensation. Past 24 hrs: Afebrile. Intermittent tachycardia. SBP elevated intermittently. No labs for today. CT needle aspiration of right psoas w/6 mL serosanguinous/pus fluid aspirated. : Lateral oblique approach for drainage of lumbar retroperitoneal and bilateral psoas muscle abscess (Neurosurgery) Retroperitoneal approach to the psoas muscle and drainage of psoas abscess and paraspinal abscess drainage. (General Surgery - Alyson Sanchez MD) ALY drains d/c'd . : CT guided aspiration of recurrent psoas muscle abscess by Interventional Radiology Plan: Discussed the plan of care with the patient who verbalised his understanding and his questions were answered. Primary management per Hospitalist. Antibiotics per Infectious Disease. Mobilise patient w/assistance. LSO brace when OOB. Physical Therapy eval & tx. Will need at least 6 wks of IV antibiotics and follow-up imaging before consideration of any surgical intervention w/instrumentation. (Apolinar Argueta) Attending Statement The exam, history, and the medical decision-making described in the above note were completed with the assistance of the mid-level provider. I reviewed and agree with the findings presented. I attest that I had a [id number] encounter with the patient on the same day, and personally performed and documented my assessment and findings in the medical record. Patient's lower extremity examination remains normal. No evidence of probably. Continue IV antibiotics. May require surgical fusion (Guero Felipe MD) Apolinar Argueta Sep 13, 2017 10:55 Guero Felipe MD Sep 19, 2017 20:00
[2017-09-13 12:00] VITALS: BP 131/84; PULSE 93; RESP 18; TEMP 97.5; O2SAT 94
[2017-09-13 16:00] VITALS: BP 137/84; PULSE 100; RESP 19; TEMP 97.1; O2SAT 96
[2017-09-13] MEDS: ENOXAPARIN SODIUM 40 MG/0.4 ML SYRINGE SQ SCH (17:12)
[2017-09-13 20:00] VITALS: BP 164/98; PULSE 101; RESP 19; TEMP 97.1; O2SAT 98
[2017-09-13] MEDS: CYCLOBENZAPRINE HCL 10 MG TAB PO PRN (21:03)
[2017-09-14] VITALS: BP 157/87; PULSE 105; RESP 19; TEMP 97.9; O2SAT 98
[2017-09-14] MEDS: oxyCODONE/ACETAMINOPHEN 5 MG/325 MG TAB PO PRN ×4 (03:28→20:54)
[2017-09-14] MEDS: POLYETHYLENE GLYCOL 17 GM PKG PO SCH (07:06)
[2017-09-14] MEDS: DOCUSATE SODIUM 50 MG/SENNA 8.6 MG TAB PO SCH ×2 (07:06→20:54)
[2017-09-14 07:35] LABS: BASOPHIL % 0.8 % (0.0-2.0); EOSINOPHIL # 0.5 TH/MM3 (0-0.4); HEMATOCRIT 28.7 % (39.0-51.0); HEMOGLOBIN 9.3 GM/DL (13.0-17.0); LYMPH % 17.7 % (9.0-44.0); LYMPHOCYTE # 0.9 TH/MM3 (1.0-4.8); MEAN CELL VOLUME 91.6 FL (80.0-100.0); MEAN CORPUSCULAR HEMOGLOBIN 29.6 PG (27.0-34.0); MEAN CORPUSCULAR HGB CONC 32.3 % (32.0-36.0); MEAN PLATELET VOLUME 7.7 FL (7.0-11.0); MONO % 11.2 % (0.0-8.0); MONOCYTE # 0.6 TH/MM3 (0-0.9); NEUT % 60.3 % (16.0-70.0); PLATELET COUNT 140 TH/MM3 (150-450); RED BLOOD COUNT 3.14 MIL/MM3 (4.50-5.90); RED CELL DISTRIBUTION WIDTH 17.8 % (11.6-17.2); WHITE BLOOD COUNT 5.1 TH/MM3 (4.0-11.0)
[2017-09-14 08:00] VITALS: BP 148/95; PULSE 92; RESP 19; TEMP 96.5; O2SAT 95
[2017-09-14] MEDS: SODIUM CHLORIDE 0.9% FLUSH 10 ML FLUSH IV FLUSH SCH ×2 (08:55→20:55)
[2017-09-14] MEDS: predniSONE 10 MG TAB PO SCH (08:55)
[2017-09-14] MEDS: GABAPENTIN 300 MG CAP PO SCH ×2 (08:55→20:54)
[2017-09-14] MEDS: FAMOTIDINE 20 MG TAB PO SCH ×2 (08:55→20:54)
[2017-09-14] MEDS: LACTIC ACID (AMMONIUM LACTATE) 12% LOTION 225 GM BTL TOPICAL SCH ×4 (08:56→20:56)
[2017-09-14] MEDS: cefTRIAXone INJ 2,000 MG in SODIUM CHLORIDE 0.9% INJ 100 ML IV SCH ×2 (08:57→20:57)
[2017-09-14 09:41] LABS: ALT (GPT) 26 U/L (12-78); BICARBONATE 26.2 MEQ/L (21.0-32.0); BLOOD UREA NITROGEN 35 MG/DL (7-18); CALCIUM 8.4 MG/DL (8.5-10.1); CHLORIDE 105 MEQ/L (98-107); CREATININE 1.41 MG/DL (0.60-1.30); GLOMERULAR FILTRATION RATE 63 ML/MIN (>89); GLUCOSE,RANDOM 83 MG/DL (74-106); SODIUM (NA) 140 MEQ/L (136-145)
--- NOTE | 2017-09-14 09:42 | HHI.PR ---
Subjective Remarks Follow-up lumbar osteomyelitis. Complaining will be usual back pain Objective Vitals Vital Signs Date Time Temp Pulse Resp B/P (MAP) Pulse Ox O2 Delivery O2 Flow Rate FiO2 09/14/17 08:00 96.5 92 19 148/95 (112) 95 09/14/17 00:00 97.9 105 19 157/87 (110) 98 09/13/17 20:00 97.1 101 19 164/98 (120) 98 09/13/17 16:00 97.1 100 19 137/84 (101) 96 09/13/17 12:00 97.5 93 18 131/84 (100) 94 I/O 09/13/17 09/13/17 09/13/17 09/14/17 09/14/17 09/14/17 07:00 15:00 23:00 07:00 15:00 23:00 Intake Total 580 ml 620 ml 950 ml Output Total 1500 ml 800 ml 1500 ml Balance -920 ml -180 ml -550 ml Intake Oral 480 ml 520 ml 850 ml IV Total 100 ml 100 ml 100 ml Output Urine Total 1500 ml 800 ml 1500 ml # Bowel Movements 1 1 0 Result Diagram: 09/14/17 0636 09/14/17 0636 Imaging Last Impressions Needle Aspiration CT 08/30/17 1356 Signed Impressions: CONCLUSION: 1. Uncomplicated procedure as above. Lumbar Spine CT 08/29/17 0000 Signed Impressions: CONCLUSION: 1. There is destructive changes involving the disc space at L4-5 characteristi c for discitis. 2. There are destructive changes predominantly in the body of L5 consistent wi th osteomyelitis. There is prominent paraspinal soft tissue swelling at the L4- L5 level. 3. Mild grade 1 anterior spondylolisthesis of L4 over L5. 4. Limited visualization of the spinal canal at L4-5 due to the inflammatory c hanges. 5. Bilateral facet arthritis at multiple levels. 6. Broad-based bulging at L2-3 and L3-4. Lumbar Spine MRI 08/28/17 0000 Signed Impressions: CONCLUSION: 1. Improvement as above. Persistent fluid remains on the left. Persistent evid ence for inflammatory process remains at the L4-5 disc. 2. Less inflammatory changes in the retroperitoneum. Chest X-Ray 08/15/17 0000 Signed Impressions: Service Date/Time: Tuesday, August 15, 2017 11:34 - CONCLUSION: Mild compensated cardiomegaly Roly Reina MD FACR Lumbar Puncture Fluoroscopy 08/08/17 0000 Signed Impressions: Service Date/Time: Tuesday, August 08, 2017 15:42 - CONCLUSION: Uncomplicated fluoroscopically guided lumbar puncture. Fady Chan MD Needle Biopsy/Aspiration X-Ray 07/31/17 0000 Signed Impressions: Service Date/Time: Monday, July 31, 2017 13:29 - CONCLUSION: Uncomplicated needle biopsy of the L4/L5 disc space as above. Candelario Reina MD Abdomen/Pelvis CT 07/29/17 0000 Signed Impressions: Service Date/Time: Saturday, July 29, 2017 22:14 - CONCLUSION: 1. Significant new prevertebral soft tissue fullness and stranding centered at the L5 level. There is associated sclerosis and erosive changes in the anterior L5 vertebral body which appear unchanged from recent exams. Overall, findings are concerning for discitis and osteomyelitis. Consider repeat MRI examination for further evaluation. 2. 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 However, evaluation is significantly limited due to lack of IV contrast on this exam. This was not present on remote prior CT exam. A mycotic aneurysm cannot be entirely excluded. Contrast enhanced examination would be greatly beneficial in further evaluation. 3. Nodular appearing liver contour consistent with cirrhosis. 4. IVC filter in place. 5. Cholelithiasis. Tanner Jones MD Objective Remarks GENERAL: Awake alert and oriented 3 well-developed well-nourished CARDIOVASCULAR: Regular rate and rhythm. S1-S2 no S3 or S4 RESPIRATORY: No accessory muscle use. Clear to auscultation. Breath sounds equal bilaterally. GASTROINTESTINAL: Abdomen soft, non-tender, nondistended. MUSCULOSKELETAL: Extremities without clubbing, cyanosis, or edema. No obvious deformities. NEUROLOGICAL: Awake and alert. No obvious cranial nerve deficits. Motor grossly within normal limits. 4 out of 5 muscle strength in the arms and legs. Normal speech. Procedures CT-guided removal of fluid for culture as well as disc biopsy L4-5 on 07/31/17 08/14/17 lateral oblique approach for drainage of lumbar retroperitoneal and bilateral psoas muscle abscess 08/30/1729-[id number] needle aspiration of psoas muscle abscess. . 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 Osteomyelitis of the L5 vertebra/bilateral psoas muscle abscess/ bacteremia Status post CT-guided removal of fluid for culture as well as disc biopsy on 07/31. Appreciate neurosurgery, vascular surgery, infectious disease recommendations. Status post drainage of abscess on 08/14/17. Wound culture is negative. Mycobacterial and fungal cultures are negative. Bacteremia with Strep Anginosis. - 08/28 as per neurosurgery recommendations the patient will need at least 6 weeks of IV antibiotics then follow-up imaging study before consideration for procedure. - 09/04 discussed the case with Dr. Goldstein from infectious disease. Recommend continuation of IV Rocephin every 12 hours since 08/03. As per ID stop date cannot be provided. Patient is also not a safe discharge as he did drugs in the hospital. 2. Encephalopathy Likely toxic secondary to drug abuse. S/P lumbar puncture. Evaluated by psychiatry, patient is capable of making decisions. - resolved. - Avoid overly sedating medications. 3. Cocaine abuse Urine toxicology positive for cocaine. There was concern that the patient may have used cocaine while in the hospital as his urine drug screen was positive 8 days after admission. - cessation instruction. - Visitors allowed again. 4. Right iliac artery aneurysm Patient noted to have a 2.9 cm aneurysm of the right internal iliac artery, possibly mycotic aneurysm. This was an incidental finding. He denies IV drug abuse. Appreciate vascular surgery recommendations. - No surgery planned at this time. 5. Chronic kidney disease stage II with acute kidney injury. Creatinine seems stable. - monitor and avoid nephrotoxins. 6. Hypoglycemia Episodes of low blood sugar into the 60s. Blood sugars more stable. - ADAT. Continue Ensure. 09/04 insulin level elevated at 72.2 but was not hypoglycemic. The blood sugars are not associated with symptoms. 7. Anemia Seems chronic. Anemia likely multifactorial. Follow-up stool blood Hemoccult. -Hemoglobin stable. 8. Hypertension Blood pressure well controlled. -Clonidine discontinued - continue amlodipine. 9. Sarcoidosis on chronic prednisone. 10. 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 Precautions. Outpatient follow-up DVT prophylaxis: SCDs and Lovenox subcutaneously. Darion Cameron MD Sep 14, 2017 09:42
[2017-09-14 09:49] LABS: ALBUMIN 2.5 GM/DL (3.4-5.0); ALKALINE PHOSPHATASE 207 U/L (45-117); AST (GOT) 33 U/L (15-37); TOTAL BILIRUBIN ADULT 0.2 MG/DL (0.2-1.0); TOTAL PROTEIN 8.7 GM/DL (6.4-8.2)
[2017-09-14 12:00] VITALS: BP 125/83; PULSE 93; RESP 18; TEMP 98.1; O2SAT 96
--- NOTE | 2017-09-14 12:46 | HHI.HCPN ---
Reason for visit a. To assist with evaluation and management of symptoms including: Pain, anxiety,debility b. To assist medical decision maker(s) with: better understanding of current medical conditions; weighing benefits/burdens of medical treatment options; making medical treatment decisions. . Subjective/Interval History Follow-up medically necessary for symptom management. Patient in bed in his room sleeping . Easily arousable. Patient remains alert, oriented to self, place and situation. Patient currently denies pain. Pain continues to be well managed with Percocet 5/325, gabapentin and Flexeril. Patient requiring x5 prn doses of Percocet 5/325 in 24 hrs. Last BM 09/14/17. Vital signs stable, patient remains afebrile. Laboratory workup today revealing WBC 5.1, hemoglobin 9.3, hematocrit 28.7, platelet count 140, potassium 4.9, BUN/creatinine 35/1.41, random glucose 83, total protein 8.7, albumin 2.5. Patient has not been OOB today with PT. Patient states that today he is feeling sleepy. Encouraged patient to get OOB and ambulate with PT in the [address] way if permissible with isolation protocol. Case discussed earlier on with PT. . Family/friend interactions No family at bedside . 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 Health Care Surrogate(s): Healthcare surrogate-Friend- Jennifer Kendrick- [phone] Alternate healthcare surrogate -Son-Kalyan Gee [phone]/ 3rd choice- If the above-mentioned are not able to serve, patient designated his ex- -Kelly Gee as his second Alternate healthcare surrogate . Documented care wishes: No written documentation of health care goals/preferences . Objective Vital Signs Date Time Temp Pulse Resp B/P (MAP) Pulse Ox O2 Delivery O2 Flow Rate FiO2 09/14/17 12:00 98.1 93 18 125/83 (97) 96 09/14/17 08:00 96.5 92 19 148/95 (112) 95 09/14/17 00:00 97.9 105 19 157/87 (110) 98 09/13/17 20:00 97.1 101 19 164/98 (120) 98 09/13/17 16:00 97.1 100 19 137/84 (101) 96 Intake & Output 09/14/17 09/14/17 07:00 19:00 Intake Total 950 ml Output Total 1500 ml Balance -550 ml Intake Oral 850 ml IV Total 100 ml Output Urine Total 1500 ml # Bowel Movements 0 Physical Exam CONSTITUTIONAL/GENERAL: This is an adequately nourished patient, in no acute distress TUBES/LINES/DRAINS:PIV SKIN: Dry. Normothermic. Healed surgical incision. ENT: Hearing grossly normal. Nose without bleeding or purulent drainage. Moist oral mucosa CARDIOVASCULAR: S1, S2 normal, no audible murmurs, gallops, or rubs. No JVD. RESPIRATORY/CHEST: Symmetric, unlabored respirations. Clear to auscultation. GASTROINTESTINAL: Abdomen soft, non-tender. Bowel sounds present. Last BM MUSCULOSKELETAL: Extremities without clubbing, cyanosis, or edema. NEUROLOGICAL: Sleeping and easily arousable, oriented to self, place and situation. Moves all extremities to, PSYCHIATRIC: No obvious anxiety/depression.Calm. . Diagnostic Tests Laboratory Laboratory Tests Test 09/14/17 06:36 White Blood Count 5.1 TH/MM3 (4.0-11.0) Red Blood Count 3.14 MIL/MM3 (4.50-5.90) Hemoglobin 9.3 GM/DL (13.0-17.0) Hematocrit 28.7 % (39.0-51.0) Mean Corpuscular Volume 91.6 FL (80.0-100.0) Mean Corpuscular Hemoglobin 29.6 PG (27.0-34.0) Mean Corpuscular Hemoglobin Concent 32.3 % (32.0-36.0) Red Cell Distribution Width 17.8 % (11.6-17.2) Platelet Count 140 TH/MM3 (150-450) Mean Platelet Volume 7.7 FL (7.0-11.0) Neutrophils (%) (Auto) 60.3 % (16.0-70.0) Lymphocytes (%) (Auto) 17.7 % (9.0-44.0) Monocytes (%) (Auto) 11.2 % (0.0-8.0) Eosinophils (%) (Auto) 10.0 % (0.0-4.0) Basophils (%) (Auto) 0.8 % (0.0-2.0) Neutrophils # (Auto) 3.0 TH/MM3 (1.8-7.7) Lymphocytes # (Auto) 0.9 TH/MM3 (1.0-4.8) Monocytes # (Auto) 0.6 TH/MM3 (0-0.9) Eosinophils # (Auto) 0.5 TH/MM3 (0-0.4) Basophils # (Auto) 0.0 TH/MM3 (0-0.2) CBC Comment DIFF FINAL Differential Comment Blood Urea Nitrogen 35 MG/DL (7-18) Creatinine 1.41 MG/DL (0.60-1.30) Random Glucose 83 MG/DL (74-106) Total Protein 8.7 GM/DL (6.4-8.2) Albumin 2.5 GM/DL (3.4-5.0) Calcium Level 8.4 MG/DL (8.5-10.1) Alkaline Phosphatase 207 U/L (45-117) Aspartate Amino Transf (AST/SGOT) 33 U/L (15-37) Alanine Aminotransferase (ALT/SGPT) 26 U/L (12-78) Total Bilirubin 0.2 MG/DL (0.2-1.0) Sodium Level 140 MEQ/L (136-145) Potassium Level 4.9 MEQ/L (3.5-5.1) Chloride Level 105 MEQ/L (98-107) Carbon Dioxide Level 26.2 MEQ/L (21.0-32.0) Anion Gap 9 MEQ/L (5-15) Estimat Glomerular Filtration Rate 63 ML/MIN (>89) Result Diagram: 09/14/17 0636 09/14/17 0636 Procedures 08/08/17 needle biopsy of the L4/L5 disc space/aspiration x-ray 08/14/17-lateral oblique approach for drainage of lumbar retroperitoneal and bilateral psoas muscle abscess by neurosurgery 08/14/17-Retroperitoneal approach to the psoas muscle and drainage of psoas abscess and paraspinal abscess drainage by general surgery 08/30/1797-[id number] needle aspiration of psoas muscle abscess. . Assessment and Plan Disease Oriented Problem List: (1) Osteomyelitis (2) Cocaine abuse (3) Mycotic aneurysm (4) CKD (chronic kidney disease) stage 3, GFR 30-59 ml/min Comment: Improving. . (5) Hypertension (6) Rheumatoid arthritis Symptom Scale: (1) Pain 0-10 Scale: 10 Comment: All his pain complaints are low back. Inadequately helped by current regimen. Pain normally 9-10 decreasing to 8-9 after parenteral hydromorphone. . . (2) Anxiety Comment: Patient reported to psychiatry that he was feeling anxious . (3) Debility Comment: Progressive . Pertinent Non-Medical Issues Psychosocial:Patient was born and raised in [place]. Patient is . Patient's highest level of education is high school. He is currently unemployed and disabled. Patient has 1 son Gerard Biggs Jr. He has been living with his nephew Jennifer Kendrick for the past 4 years. Spiritual: Patient is Religion Legal: No living will. Health care surrogate designation completed 08/09/17 -- he wants his friend Jennifer Manuel to serve. Ethical issues impacting care: None identified at this time . Important Contacts JenniferMireille polanco (Health care surrogate and close friend) -[phone] (he has been living with patient for the past 4 years) Kalyan Gee Jr (son and alternate HCS) - [phone] Cell/[phone] work Kelly Gee (ex- and 2nd alternate HCS) Patricia Joy ( of Jennifer Manuel) [phone] Brother- Miles Gee [phone] PATIENT HAS GIVEN PERMISSION TO DISCUSS DETAILS OF HIS CASE AND CARE WITH THE ABOVE. . . Prognosis Mr. Gee is a 57-year-old male with a past medical history significant for chronic back pain, lumbar osteomyelitis and discitis s/p L4-L5 laminectomy 2014 , rheumatoid arthritis, hyperlipidemia, chronic kidney stage III, cocaine abuse and tobacco abuse. Patient presented to the ER on 07/29/17 with complaints of severe back pain. Diagnostic tests revealed lumbar osteomyelitis with retroperitoneal/prevertebral abscess. Clinical course complicated with pain, anxiety and early recurrence of psoas abscess. Imaging has shown worsening infection over course of hospitalization. Patient underwent lateral oblique approach for drainage of lumbar retroperitoneal and bilateral psoas muscle abscess on 08/14/17. 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 Last MRI 08/28/17 of lumbar spine showing recurrent psoas abscess. Prognosis appears poor. . Code Status: Full Code Plan PLAN: CODE STATUS: Full code Legal decision maker: Patient has been deemed capacitated to participate in medical decision making by psychiatry on 08/08/17. In the event that he is incapacitated, patient has designated his friend Jennifer Kendrick to serve as his health care surrogate, and his son Gerard Hull Jr as his alternate healthcare surrogate and if the above mentioned are not able to serve, he chose his ex- Kelly Gee as his other alternate Healthcare Surrogate. Goals: Goals remain aggressive. Patient to remain in the hospital for fdc antibiotic therapy. Patient agreeable to staying in the hospital for treatment. Patient has not been OOB today with PT. Patient states that today he is feeling sleepy. Encouraged patient to get OOB and ambulate with PT in the [address] way if permissible with isolation protocol. SYMPTOMS: * Pain: Patient complaining of severe lower back pain. Patient had osteomyelitis and is s/p drainage of lumbar retroperitoneal and bilateral psoas muscle abscess 08/14/17.Pain continues to be well managed with Percocet 5/325, gabapentin and Flexeril. Pain medication and muscle relaxant appears adequate. * Anxiety: Patient reported to psychiatry that he feels anxious. Has lorazepam ordered q 2 hours prn. Appears to be adequate. Denies anxiety. No further recommendation at this time. * Debility: Prolonged hospitalization. Physical therapy recommending PT at Rehab. Patient ambulating from bed to bedside commode with a walker. PT and OT following. == Palliative care will continue to follow to assist with symptom management and to further clarify goals of medical treatment as the clinical course evolves. . Attestation To help prompt me to consider important information that might be impacting today's encounter and assessment, information from prior notes written by myself or my colleagues may have been "brought forward" into today's note. My signature on this note, however, is an attestation that I personally performed the exam, history, and/or decision-making noted today, and, unless otherwise indicated, the interactions with patient, family, and staff as well as the review of records all occurred today. I also attest that the listed assessment and stated plan reflect my best clinical judgment today based on the combination of historical information, prior notes, and today's exam/ interactions. When time spent is documented, it refers only to time spent today by the signer, or if indicated, combined time spent today by collaborating physician/nurse practitioner. Erasmo Vieyra Sep 14, 2017 12:46
[2017-09-14] MEDS: ENOXAPARIN SODIUM 40 MG/0.4 ML SYRINGE SQ SCH (15:01)
[2017-09-14 16:00] VITALS: BP 156/100; PULSE 99; RESP 20; TEMP 97.3; O2SAT 94
[2017-09-14 20:00] VITALS: BP 165/91; PULSE 98; RESP 20; TEMP 97.6; O2SAT 97
[2017-09-14] MEDS: cloNIDine HCL 0.1 MG TAB PO PRN (21:01)
[2017-09-15] VITALS: BP 124/83; PULSE 91; RESP 20; TEMP 98.1; O2SAT 95
[2017-09-15] MEDS: oxyCODONE/ACETAMINOPHEN 5 MG/325 MG TAB PO PRN ×4 (02:31→20:39)
[2017-09-15 08:00] VITALS: BP 134/106; PULSE 87; RESP 18; TEMP 97.9; O2SAT 100
[2017-09-15] MEDS: POLYETHYLENE GLYCOL 17 GM PKG PO SCH (08:08)
[2017-09-15] MEDS: predniSONE 10 MG TAB PO SCH (08:13)
[2017-09-15] MEDS: GABAPENTIN 300 MG CAP PO SCH ×2 (08:13→20:39)
[2017-09-15] MEDS: DOCUSATE SODIUM 50 MG/SENNA 8.6 MG TAB PO SCH ×2 (08:13→20:39)
[2017-09-15] MEDS: FAMOTIDINE 20 MG TAB PO SCH ×2 (08:13→20:39)
[2017-09-15] MEDS: LACTIC ACID (AMMONIUM LACTATE) 12% LOTION 225 GM BTL TOPICAL SCH ×4 (08:18→20:40)
[2017-09-15] MEDS: SODIUM CHLORIDE 0.9% FLUSH 10 ML FLUSH IV FLUSH SCH ×2 (08:18→20:38)
[2017-09-15] MEDS: cefTRIAXone INJ 2,000 MG in SODIUM CHLORIDE 0.9% INJ 100 ML IV SCH ×2 (08:18→20:38)
--- NOTE | 2017-09-15 08:57 | HHI.PR ---
Subjective Remarks Follow-up lumbar osteomyelitis. Doing ok Objective Vitals Vital Signs Date Time Temp Pulse Resp B/P (MAP) Pulse Ox O2 Delivery O2 Flow Rate FiO2 09/15/17 00:00 98.1 91 20 124/83 (97) 95 09/14/17 22:05 20 09/14/17 20:00 97.6 98 20 165/91 (115) 97 09/14/17 16:00 97.3 99 20 156/100 (118) 94 09/14/17 12:00 98.1 93 18 125/83 (97) 96 I/O 09/14/17 09/14/17 09/14/17 09/15/17 09/15/17 09/15/17 07:00 15:00 23:00 07:00 15:00 23:00 Intake Total 950 ml 1100 ml 180 ml Output Total 1500 ml 1200 ml Balance -550 ml -100 ml 180 ml Intake Oral 850 ml 900 ml 180 ml IV Total 100 ml 200 ml Output Urine Total 1500 ml 1200 ml # Bowel Movements 0 2 Result Diagram: 09/14/17 0636 09/14/17 0636 Imaging Last Impressions Needle Aspiration CT 08/30/17 1356 Signed Impressions: CONCLUSION: 1. Uncomplicated procedure as above. Lumbar Spine CT 08/29/17 0000 Signed Impressions: CONCLUSION: 1. There is destructive changes involving the disc space at L4-5 characteristi c for discitis. 2. There are destructive changes predominantly in the body of L5 consistent wi th osteomyelitis. There is prominent paraspinal soft tissue swelling at the L4- L5 level. 3. Mild grade 1 anterior spondylolisthesis of L4 over L5. 4. Limited visualization of the spinal canal at L4-5 due to the inflammatory c hanges. 5. Bilateral facet arthritis at multiple levels. 6. Broad-based bulging at L2-3 and L3-4. Lumbar Spine MRI 08/28/17 0000 Signed Impressions: CONCLUSION: 1. Improvement as above. Persistent fluid remains on the left. Persistent evid ence for inflammatory process remains at the L4-5 disc. 2. Less inflammatory changes in the retroperitoneum. Chest X-Ray 08/15/17 0000 Signed Impressions: Service Date/Time: Tuesday, August 15, 2017 11:34 - CONCLUSION: Mild compensated cardiomegaly Roly Reina MD FACR Lumbar Puncture Fluoroscopy 08/08/17 0000 Signed Impressions: Service Date/Time: Tuesday, August 08, 2017 15:42 - CONCLUSION: Uncomplicated fluoroscopically guided lumbar puncture. Fady Chan MD Needle Biopsy/Aspiration X-Ray 07/31/17 0000 Signed Impressions: Service Date/Time: Monday, July 31, 2017 13:29 - CONCLUSION: Uncomplicated needle biopsy of the L4/L5 disc space as above. Candelario Reina MD Abdomen/Pelvis CT 07/29/17 0000 Signed Impressions: Service Date/Time: Saturday, July 29, 2017 22:14 - CONCLUSION: 1. Significant new prevertebral soft tissue fullness and stranding centered at the L5 level. There is associated sclerosis and erosive changes in the anterior L5 vertebral body which appear unchanged from recent exams. Overall, findings are concerning for discitis and osteomyelitis. Consider repeat MRI examination for further evaluation. 2. 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 However, evaluation is significantly limited due to lack of IV contrast on this exam. This was not present on remote prior CT exam. A mycotic aneurysm cannot be entirely excluded. Contrast enhanced examination would be greatly beneficial in further evaluation. 3. Nodular appearing liver contour consistent with cirrhosis. 4. IVC filter in place. 5. Cholelithiasis. Tanner Jones MD Objective Remarks GENERAL: Awake alert and oriented 3 well-developed well-nourished CARDIOVASCULAR: Regular rate and rhythm. S1-S2 no S3 or S4 RESPIRATORY: No accessory muscle use. Clear to auscultation. Breath sounds equal bilaterally. GASTROINTESTINAL: Abdomen soft, non-tender, nondistended. MUSCULOSKELETAL: Extremities without clubbing, cyanosis, or edema. No obvious deformities. NEUROLOGICAL: Awake and alert. No obvious cranial nerve deficits. Motor grossly within normal limits. 4 out of 5 muscle strength in the arms and legs. Normal speech. Procedures CT-guided removal of fluid for culture as well as disc biopsy L4-5 on 07/31/17 08/14/17 lateral oblique approach for drainage of lumbar retroperitoneal and bilateral psoas muscle abscess 08/30/1730-[id number] needle aspiration of psoas muscle abscess. . 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 Osteomyelitis of the L5 vertebra/bilateral psoas muscle abscess/ bacteremia Status post CT-guided removal of fluid for culture as well as disc biopsy on 07/31. Appreciate neurosurgery, vascular surgery, infectious disease recommendations. Status post drainage of abscess on 08/14/17. Wound culture is negative. Mycobacterial and fungal cultures are negative. Bacteremia with Strep Anginosis. - 08/28 as per neurosurgery recommendations the patient will need at least 6 weeks of IV antibiotics then follow-up imaging study before consideration for procedure. - 09/04 discussed the case with Dr. Goldstein from infectious disease. Recommend continuation of IV Rocephin every 12 hours since 08/03. As per ID stop date cannot be provided. Patient is also not a safe discharge as he did drugs in the hospital. 2. Encephalopathy Likely toxic secondary to drug abuse. S/P lumbar puncture. Evaluated by psychiatry, patient is capable of making decisions. - resolved. - Avoid overly sedating medications. 3. Cocaine abuse Urine toxicology positive for cocaine. There was concern that the patient may have used cocaine while in the hospital as his urine drug screen was positive 8 days after admission. - cessation instruction. - Visitors allowed again. 4. Right iliac artery aneurysm Patient noted to have a 2.9 cm aneurysm of the right internal iliac artery, possibly mycotic aneurysm. This was an incidental finding. He denies IV drug abuse. Appreciate vascular surgery recommendations. - No surgery planned at this time. 5. Chronic kidney disease stage II with acute kidney injury. Creatinine seems stable. - monitor and avoid nephrotoxins. 6. Hypoglycemia Episodes of low blood sugar into the 60s. Blood sugars more stable. - ADAT. Continue Ensure. 09/04 insulin level elevated at 72.2 but was not hypoglycemic. The blood sugars are not associated with symptoms. 7. Anemia Seems chronic. Anemia likely multifactorial. Follow-up stool blood Hemoccult. -Hemoglobin stable. 8. Hypertension Blood pressure well controlled. -Clonidine discontinued - continue amlodipine. 9. Sarcoidosis on chronic prednisone. 10. 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 Precautions. Outpatient follow-up DVT prophylaxis: SCDs and Lovenox subcutaneously. Darion Cameron MD Sep 15, 2017 08:57
[2017-09-15 12:00] VITALS: BP 160/64; PULSE 95; RESP 18; TEMP 97.9; O2SAT 98
[2017-09-15] MEDS: ENOXAPARIN SODIUM 40 MG/0.4 ML SYRINGE SQ SCH (15:30)
[2017-09-15 16:00] VITALS: BP 132/94; PULSE 99; RESP 19; TEMP 97.3; O2SAT 96
[2017-09-15 20:00] VITALS: BP 174/88; PULSE 99; RESP 18; TEMP 97.2; O2SAT 95
[2017-09-16 00:14] VITALS: BP 130/82; PULSE 92; RESP 18; TEMP 97.6; O2SAT 95
[2017-09-16] MEDS: oxyCODONE/ACETAMINOPHEN 5 MG/325 MG TAB PO PRN ×4 (04:27→21:33)
[2017-09-16 08:00] VITALS: BP 166/94; PULSE 94; RESP 18; TEMP 97.9; O2SAT 96
[2017-09-16] MEDS: predniSONE 10 MG TAB PO SCH (08:08)
[2017-09-16] MEDS: DOCUSATE SODIUM 50 MG/SENNA 8.6 MG TAB PO SCH ×2 (08:08→21:32)
[2017-09-16] MEDS: GABAPENTIN 300 MG CAP PO SCH ×2 (08:08→21:32)
[2017-09-16] MEDS: POLYETHYLENE GLYCOL 17 GM PKG PO SCH (08:08)
[2017-09-16] MEDS: FAMOTIDINE 20 MG TAB PO SCH ×2 (08:08→21:32)
[2017-09-16] MEDS: SODIUM CHLORIDE 0.9% FLUSH 10 ML FLUSH IV FLUSH SCH ×2 (08:09→21:33)
[2017-09-16] MEDS: cefTRIAXone INJ 2,000 MG in SODIUM CHLORIDE 0.9% INJ 100 ML IV SCH ×2 (08:12→21:33)
[2017-09-16] MEDS: LACTIC ACID (AMMONIUM LACTATE) 12% LOTION 225 GM BTL TOPICAL SCH ×4 (08:12→21:36)
--- NOTE | 2017-09-16 10:06 | HHI.PR ---
Subjective Remarks Follow-up lumbar osteomyelitis. Improving back pain. Requesting to talk to community case manager for assistance with housing Objective Vitals Vital Signs Date Time Temp Pulse Resp B/P (MAP) Pulse Ox O2 Delivery O2 Flow Rate FiO2 09/16/17 08:00 97.9 94 18 166/94 (118) 96 09/16/17 00:14 97.6 92 18 130/82 (98) 95 09/15/17 20:00 97.2 99 18 174/88 (116) 95 09/15/17 16:00 97.3 99 19 132/94 (107) 96 09/15/17 12:00 97.9 95 18 160/64 (96) 98 I/O 09/15/17 09/15/17 09/15/17 09/16/17 09/16/17 09/16/17 07:00 15:00 23:00 07:00 15:00 23:00 Intake Total 180 ml 100 ml 1060 ml Output Total 1500 ml 1675 ml Balance 180 ml 100 ml -440 ml -1675 ml Intake Oral 180 ml 960 ml IV Total 100 ml 100 ml Output Urine Total 1500 ml 1675 ml # Bowel Movements 1 Result Diagram: 09/14/17 0636 09/14/17 0636 Imaging Last Impressions Needle Aspiration CT 08/30/17 1356 Signed Impressions: CONCLUSION: 1. Uncomplicated procedure as above. Lumbar Spine CT 08/29/17 0000 Signed Impressions: CONCLUSION: 1. There is destructive changes involving the disc space at L4-5 characteristi c for discitis. 2. There are destructive changes predominantly in the body of L5 consistent wi th osteomyelitis. There is prominent paraspinal soft tissue swelling at the L4- L5 level. 3. Mild grade 1 anterior spondylolisthesis of L4 over L5. 4. Limited visualization of the spinal canal at L4-5 due to the inflammatory c hanges. 5. Bilateral facet arthritis at multiple levels. 6. Broad-based bulging at L2-3 and L3-4. Lumbar Spine MRI 08/28/17 0000 Signed Impressions: CONCLUSION: 1. Improvement as above. Persistent fluid remains on the left. Persistent evid ence for inflammatory process remains at the L4-5 disc. 2. Less inflammatory changes in the retroperitoneum. Chest X-Ray 08/15/17 0000 Signed Impressions: Service Date/Time: Tuesday, August 15, 2017 11:34 - CONCLUSION: Mild compensated cardiomegaly Roly Reina MD FACR Lumbar Puncture Fluoroscopy 08/08/17 0000 Signed Impressions: Service Date/Time: Tuesday, August 08, 2017 15:42 - CONCLUSION: Uncomplicated fluoroscopically guided lumbar puncture. Fady Chan MD Needle Biopsy/Aspiration X-Ray 07/31/17 0000 Signed Impressions: Service Date/Time: Monday, July 31, 2017 13:29 - CONCLUSION: Uncomplicated needle biopsy of the L4/L5 disc space as above. Candelario Reina MD Abdomen/Pelvis CT 07/29/17 0000 Signed Impressions: Service Date/Time: Saturday, July 29, 2017 22:14 - CONCLUSION: 1. Significant new prevertebral soft tissue fullness and stranding centered at the L5 level. There is associated sclerosis and erosive changes in the anterior L5 vertebral body which appear unchanged from recent exams. Overall, findings are concerning for discitis and osteomyelitis. Consider repeat MRI examination for further evaluation. 2. 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 However, evaluation is significantly limited due to lack of IV contrast on this exam. This was not present on remote prior CT exam. A mycotic aneurysm cannot be entirely excluded. Contrast enhanced examination would be greatly beneficial in further evaluation. 3. Nodular appearing liver contour consistent with cirrhosis. 4. IVC filter in place. 5. Cholelithiasis. Tanner Jones MD Objective Remarks GENERAL: Awake alert and oriented 3 well-developed well-nourished CARDIOVASCULAR: Regular rate and rhythm. S1-S2 no S3 or S4 RESPIRATORY: No accessory muscle use. Clear to auscultation. Breath sounds equal bilaterally. GASTROINTESTINAL: Abdomen soft, non-tender, nondistended. MUSCULOSKELETAL: Extremities without clubbing, cyanosis, or edema. No obvious deformities. NEUROLOGICAL: Awake and alert. No obvious cranial nerve deficits. Motor grossly within normal limits. 4 out of 5 muscle strength in the arms and legs. Normal speech. Procedures CT-guided removal of fluid for culture as well as disc biopsy L4-5 on 07/31/17 08/14/17 lateral oblique approach for drainage of lumbar retroperitoneal and bilateral psoas muscle abscess [id number] needle aspiration of psoas muscle abscess. . 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 Osteomyelitis of the L5 vertebra/bilateral psoas muscle abscess/ bacteremia Status post CT-guided removal of fluid for culture as well as disc biopsy on 07/31. Appreciate neurosurgery, vascular surgery, infectious disease recommendations. Status post drainage of abscess on 08/14/17. Wound culture is negative. Mycobacterial and fungal cultures are negative. Bacteremia with Strep Anginosis. - 08/28 as per neurosurgery recommendations the patient will need at least 6 weeks of IV antibiotics then follow-up imaging study before consideration for procedure. - 09/04 discussed the case with Dr. Goldstein from infectious disease. Recommend continuation of IV Rocephin every 12 hours since 08/03. As per ID stop date cannot be provided. Patient is also not a safe discharge as he did drugs in the hospital. 2. Encephalopathy Likely toxic secondary to drug abuse. S/P lumbar puncture. Evaluated by psychiatry, patient is capable of making decisions. - resolved. - Avoid overly sedating medications. 3. Cocaine abuse Urine toxicology positive for cocaine. There was concern that the patient may have used cocaine while in the hospital as his urine drug screen was positive 8 days after admission. - cessation instruction. - Visitors allowed again. 4. Right iliac artery aneurysm Patient noted to have a 2.9 cm aneurysm of the right internal iliac artery, possibly mycotic aneurysm. This was an incidental finding. He denies IV drug abuse. Appreciate vascular surgery recommendations. - No surgery planned at this time. 5. Chronic kidney disease stage II with acute kidney injury. Creatinine seems stable. - monitor and avoid nephrotoxins. 6. Hypoglycemia Episodes of low blood sugar into the 60s. Blood sugars more stable. - ADAT. Continue Ensure. 09/04 insulin level elevated at 72.2 but was not hypoglycemic. The blood sugars are not associated with symptoms. 7. Anemia Seems chronic. Anemia likely multifactorial. Follow-up stool blood Hemoccult. -Hemoglobin stable. 8. Hypertension Blood pressure not well controlled. -Clonidine discontinued - continue amlodipine. Start beta-preston 9. Sarcoidosis on chronic prednisone. 10. 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 Precautions. Outpatient follow-up DVT prophylaxis: SCDs and Lovenox subcutaneously. Darion Cameron MD Sep 16, 2017 10:06
[2017-09-16] MEDS ORDERED: PILL SPLITTER OTHER PRN (10:30)
[2017-09-16] MEDS: METOPROLOL TARTRATE 25 MG TAB PO SCH ×2 (10:32→21:35)
[2017-09-16 12:00] VITALS: BP 150/97; PULSE 92; RESP 18; TEMP 97.7; O2SAT 98
[2017-09-16] MEDS: ENOXAPARIN SODIUM 40 MG/0.4 ML SYRINGE SQ SCH (15:43)
[2017-09-16 16:00] VITALS: BP 145/92; PULSE 90; RESP 18; TEMP 98; O2SAT 97
[2017-09-16 20:00] VITALS: BP 130/88; PULSE 81; RESP 18; TEMP 97.4; O2SAT 98
[2017-09-16] MEDS: CYCLOBENZAPRINE HCL 10 MG TAB PO PRN (21:33)
[2017-09-17] VITALS: BP 130/87; PULSE 92; RESP 18; TEMP 97.7; O2SAT 96
[2017-09-17 08:00] VITALS: BP 150/92; PULSE 83; RESP 19; TEMP 98.1; O2SAT 94
[2017-09-17] MEDS: POLYETHYLENE GLYCOL 17 GM PKG PO SCH (08:07)
[2017-09-17] MEDS: predniSONE 10 MG TAB PO SCH (08:09)
[2017-09-17] MEDS: GABAPENTIN 300 MG CAP PO SCH ×2 (08:09→20:31)
[2017-09-17] MEDS: DOCUSATE SODIUM 50 MG/SENNA 8.6 MG TAB PO SCH ×2 (08:09→20:31)
[2017-09-17] MEDS: FAMOTIDINE 20 MG TAB PO SCH ×2 (08:09→20:31)
[2017-09-17] MEDS: SODIUM CHLORIDE 0.9% FLUSH 10 ML FLUSH IV FLUSH SCH ×2 (08:10→20:32)
[2017-09-17] MEDS: LACTIC ACID (AMMONIUM LACTATE) 12% LOTION 225 GM BTL TOPICAL SCH ×4 (08:10→20:32)
[2017-09-17] MEDS: METOPROLOL TARTRATE 25 MG TAB PO SCH ×2 (08:10→20:31)
--- NOTE | 2017-09-17 09:07 | HHI.PR ---
Subjective Remarks Follow-up lumbar osteomyelitis he has no new complaints improving lower back pain. Objective Vitals Vital Signs Date Time Temp Pulse Resp B/P (MAP) Pulse Ox O2 Delivery O2 Flow Rate FiO2 09/17/17 08:00 98.1 83 19 150/92 (111) 94 09/17/17 00:00 97.7 92 18 130/87 (101) 96 09/16/17 20:00 97.4 81 18 130/88 (102) 98 09/16/17 16:00 98.0 90 18 145/92 (109) 97 09/16/17 12:00 97.7 92 18 150/97 (114) 98 I/O 09/16/17 09/16/17 09/16/17 09/17/17 09/17/17 09/17/17 07:00 15:00 23:00 07:00 15:00 23:00 Intake Total 100 ml 1600 ml Output Total 1675 ml 1500 ml 1700 ml 550 ml Balance -1675 ml 100 ml 100 ml -1700 ml -550 ml Intake Oral 1500 ml IV Total 100 ml 100 ml Output Urine Total 1675 ml 1500 ml 1700 ml 550 ml # Bowel Movements 1 Result Diagram: 09/14/17 0636 09/14/17 0636 Imaging Last Impressions Needle Aspiration CT 08/30/17 1356 Signed Impressions: CONCLUSION: 1. Uncomplicated procedure as above. Lumbar Spine CT 08/29/17 0000 Signed Impressions: CONCLUSION: 1. There is destructive changes involving the disc space at L4-5 characteristi c for discitis. 2. There are destructive changes predominantly in the body of L5 consistent wi th osteomyelitis. There is prominent paraspinal soft tissue swelling at the L4- L5 level. 3. Mild grade 1 anterior spondylolisthesis of L4 over L5. 4. Limited visualization of the spinal canal at L4-5 due to the inflammatory c hanges. 5. Bilateral facet arthritis at multiple levels. 6. Broad-based bulging at L2-3 and L3-4. Lumbar Spine MRI 08/28/17 0000 Signed Impressions: CONCLUSION: 1. Improvement as above. Persistent fluid remains on the left. Persistent evid ence for inflammatory process remains at the L4-5 disc. 2. Less inflammatory changes in the retroperitoneum. Chest X-Ray 08/15/17 0000 Signed Impressions: Service Date/Time: Tuesday, August 15, 2017 11:34 - CONCLUSION: Mild compensated cardiomegaly Roly Reina MD FACR Lumbar Puncture Fluoroscopy 08/08/17 0000 Signed Impressions: Service Date/Time: Tuesday, August 08, 2017 15:42 - CONCLUSION: Uncomplicated fluoroscopically guided lumbar puncture. Fady Chan MD Needle Biopsy/Aspiration X-Ray 07/31/17 0000 Signed Impressions: Service Date/Time: Monday, July 31, 2017 13:29 - CONCLUSION: Uncomplicated needle biopsy of the L4/L5 disc space as above. Candelario Reina MD Abdomen/Pelvis CT 07/29/17 0000 Signed Impressions: Service Date/Time: Saturday, July 29, 2017 22:14 - CONCLUSION: 1. Significant new prevertebral soft tissue fullness and stranding centered at the L5 level. There is associated sclerosis and erosive changes in the anterior L5 vertebral body which appear unchanged from recent exams. Overall, findings are concerning for discitis and osteomyelitis. Consider repeat MRI examination for further evaluation. 2. 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 However, evaluation is significantly limited due to lack of IV contrast on this exam. This was not present on remote prior CT exam. A mycotic aneurysm cannot be entirely excluded. Contrast enhanced examination would be greatly beneficial in further evaluation. 3. Nodular appearing liver contour consistent with cirrhosis. 4. IVC filter in place. 5. Cholelithiasis. Tanner Jones MD Objective Remarks GENERAL: Awake alert and oriented 3 well-developed well-nourished CARDIOVASCULAR: Regular rate and rhythm. S1-S2 no S3 or S4 RESPIRATORY: No accessory muscle use. Clear to auscultation. Breath sounds equal bilaterally. GASTROINTESTINAL: Abdomen soft, non-tender, nondistended. MUSCULOSKELETAL: Extremities without clubbing, cyanosis, or edema. No obvious deformities. NEUROLOGICAL: Awake and alert. No obvious cranial nerve deficits. Motor grossly within normal limits. 4 out of 5 muscle strength in the arms and legs. Normal speech. Procedures CT-guided removal of fluid for culture as well as disc biopsy L4-5 on 07/31/17 08/14/17 lateral oblique approach for drainage of lumbar retroperitoneal and bilateral psoas muscle abscess 08/30/[id number] needle aspiration of psoas muscle abscess. . 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 Osteomyelitis of the L5 vertebra/bilateral psoas muscle abscess/ bacteremia Status post CT-guided removal of fluid for culture as well as disc biopsy on 07/31. Appreciate neurosurgery, vascular surgery, infectious disease recommendations. Status post drainage of abscess on 08/14/17. Wound culture is negative. Mycobacterial and fungal cultures are negative. Bacteremia with Strep Anginosis. - 08/28 as per neurosurgery recommendations the patient will need at least 6 weeks(around the week of 09/18) of IV antibiotics then follow-up imaging study before consideration for procedure. - 09/04 discussed the case with Dr. Goldstein from infectious disease. Recommend continuation of IV Rocephin every 12 hours since 08/03. As per ID stop date cannot be provided. Patient is also not a safe discharge as he did drugs in the hospital. 2. Encephalopathy Likely toxic secondary to drug abuse. S/P lumbar puncture. Evaluated by psychiatry, patient is capable of making decisions. - resolved. - Avoid overly sedating medications. 3. Cocaine abuse Urine toxicology positive for cocaine. There was concern that the patient may have used cocaine while in the hospital as his urine drug screen was positive 8 days after admission. - cessation instruction. - Visitors allowed again. 4. Right iliac artery aneurysm Patient noted to have a 2.9 cm aneurysm of the right internal iliac artery, possibly mycotic aneurysm. This was an incidental finding. He denies IV drug abuse. Appreciate vascular surgery recommendations. - No surgery planned at this time. 5. Chronic kidney disease stage II with acute kidney injury. Creatinine seems stable. - monitor and avoid nephrotoxins. 6. Hypoglycemia Episodes of low blood sugar into the 60s. Blood sugars more stable. - ADAT. Continue Ensure. 6/5 insulin level elevated at 72.2 but was not hypoglycemic. The blood sugars are not associated with symptoms. 7. Anemia Seems chronic. Anemia likely multifactorial. Follow-up stool blood Hemoccult. -Hemoglobin stable. 8. Hypertension Blood pressure not well controlled. -Clonidine discontinued - continue amlodipine. Just started beta-preston 9. Sarcoidosis on chronic prednisone. 10. 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 Precautions. Outpatient follow-up DVT prophylaxis: SCDs and Lovenox subcutaneously. Discharge Planning Rehab vs [facility] Darion Cameron MD Sep 17, 2017 09:07
[2017-09-17] MEDS: cefTRIAXone INJ 2,000 MG in SODIUM CHLORIDE 0.9% INJ 100 ML IV SCH ×2 (09:56→20:32)
[2017-09-17] MEDS: oxyCODONE/ACETAMINOPHEN 5 MG/325 MG TAB PO PRN ×2 (11:04→20:32)
[2017-09-17 12:00] VITALS: BP 144/102; PULSE 84; RESP 18; TEMP 97.3; O2SAT 96
[2017-09-17] MEDS: ENOXAPARIN SODIUM 40 MG/0.4 ML SYRINGE SQ SCH (15:33)
[2017-09-17 16:00] VITALS: BP 122/80; PULSE 90; RESP 17; TEMP 96.4; O2SAT 96
[2017-09-17 20:24] VITALS: BP 127/89; PULSE 96; RESP 18; TEMP 98.2; O2SAT 97
[2017-09-17] MEDS: CYCLOBENZAPRINE HCL 10 MG TAB PO PRN (20:31)
[2017-09-18 00:12] VITALS: BP 132/91; PULSE 89; RESP 18; TEMP 97.8; O2SAT 96
[2017-09-18] MEDS: oxyCODONE/ACETAMINOPHEN 5 MG/325 MG TAB PO PRN ×3 (04:58→17:40)
[2017-09-18 08:00] VITALS: BP 175/89; PULSE 87; RESP 17; TEMP 97.7; O2SAT 94
--- NOTE | 2017-09-18 08:30 | HHI.PR ---
Subjective Remarks in no acute distress. pain is controlled. no fever. no new complaints. Objective Vitals Vital Signs Date Time Temp Pulse Resp B/P (MAP) Pulse Ox O2 Delivery O2 Flow Rate FiO2 09/18/17 00:12 97.8 89 18 132/91 (105) 96 09/17/17 20:24 98.2 96 18 127/89 (102) 97 09/17/17 16:00 96.4 90 17 122/80 (94) 96 09/17/17 12:05 20 09/17/17 12:00 97.3 84 18 144/102 (116) 96 I/O 09/17/17 09/17/17 09/17/17 09/18/17 09/18/17 09/18/17 07:00 15:00 23:00 07:00 15:00 23:00 Intake Total 700 ml 780 ml Output Total 1700 ml 550 ml 875 ml 1800 ml Balance -1700 ml -550 ml -175 ml -1020 ml Intake Oral 500 ml 780 ml IV Total 200 ml Output Urine Total 1700 ml 550 ml 875 ml 1800 ml # Bowel Movements 1 1 Result Diagram: 09/14/17 0636 09/14/17 0636 Imaging Last Impressions Needle Aspiration CT 08/30/17 1356 Signed Impressions: CONCLUSION: 1. Uncomplicated procedure as above. Lumbar Spine CT 08/29/17 0000 Signed Impressions: CONCLUSION: 1. There is destructive changes involving the disc space at L4-5 characteristi c for discitis. 2. There are destructive changes predominantly in the body of L5 consistent wi th osteomyelitis. There is prominent paraspinal soft tissue swelling at the L4- L5 level. 3. Mild grade 1 anterior spondylolisthesis of L4 over L5. 4. Limited visualization of the spinal canal at L4-5 due to the inflammatory c hanges. 5. Bilateral facet arthritis at multiple levels. 6. Broad-based bulging at L2-3 and L3-4. Lumbar Spine MRI 08/28/17 0000 Signed Impressions: CONCLUSION: 1. Improvement as above. Persistent fluid remains on the left. Persistent evid ence for inflammatory process remains at the L4-5 disc. 2. Less inflammatory changes in the retroperitoneum. Chest X-Ray 08/15/17 0000 Signed Impressions: Service Date/Time: Tuesday, August 15, 2017 11:34 - CONCLUSION: Mild compensated cardiomegaly Roly Reina MD FACR Lumbar Puncture Fluoroscopy 08/08/17 0000 Signed Impressions: Service Date/Time: Tuesday, August 08, 2017 15:42 - CONCLUSION: Uncomplicated fluoroscopically guided lumbar puncture. Fady Chan MD Needle Biopsy/Aspiration X-Ray 07/31/17 0000 Signed Impressions: Service Date/Time: Monday, July 31, 2017 13:29 - CONCLUSION: Uncomplicated needle biopsy of the L4/L5 disc space as above. Candelario Reina MD Abdomen/Pelvis CT 07/29/17 0000 Signed Impressions: Service Date/Time: Saturday, July 29, 2017 22:14 - CONCLUSION: 1. Significant new prevertebral soft tissue fullness and stranding centered at the L5 level. There is associated sclerosis and erosive changes in the anterior L5 vertebral body which appear unchanged from recent exams. Overall, findings are concerning for discitis and osteomyelitis. Consider repeat MRI examination for further evaluation. 2. 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 However, evaluation is significantly limited due to lack of IV contrast on this exam. This was not present on remote prior CT exam. A mycotic aneurysm cannot be entirely excluded. Contrast enhanced examination would be greatly beneficial in further evaluation. 3. Nodular appearing liver contour consistent with cirrhosis. 4. IVC filter in place. 5. Cholelithiasis. Tanner Jones MD Objective Remarks GENERAL: This is a well-nourished, well-developed patient, in no apparent distress. CARDIOVASCULAR: Regular rate and regular rhythm without murmurs, gallops, or rubs. RESPIRATORY: Clear to auscultation. Breath sounds equal bilaterally. No wheezes , rales, or rhonchi. GASTROINTESTINAL: Abdomen soft, non-tender, nondistended. Normal, active bowel sounds MUSCULOSKELETAL: Extremities without clubbing, cyanosis, or edema. NEURO: lethargic but arousable. Procedures CT-guided removal of fluid for culture as well as disc biopsy L4-5 on 07/31/17 08/14/17 lateral oblique approach for drainage of lumbar retroperitoneal and bilateral psoas muscle abscess [id number] needle aspiration of psoas muscle abscess. . Medications and IVs Inpatient Medications Acetaminophen (Tylenol) 650 mg Q6H PRN PO FEVER/PAIN SCALE 1 TO 2 Last administered on 08/15/17at 07:38; Start 07/29/17 at 23:15 Albuterol Sulfate (Proair Hfa Inh) 2 puff Q4H PRN INH SHORTNESS OF BREATH; Start 08/14/17 at 20:30 Amlodipine Besylate (Norvasc) 10 mg DAILY PO ; Start 08/15/17 at 09:00; Stop at 14:31; Status DC Bisacodyl (Dulcolax Supp) 10 mg DAILY PRN RECTAL SEVERE CONSITIPATION/ IF NPO ; Start 07/29/17 at 23:15 Calcium Carbonate (Tums Chew) 500 mg Q2H PRN CHEW indigestion Last administered on 08/05/17at 13:49; Start 08/02/17 at 19:30 Cefepime HCl 1000 mg/Sodium Chloride 100 ml @ 200 mls/hr Q12H IV Last administered on 08/01/17at 21:37; Start 07/30/17 at 09:00; Stop 08/02/17 at 06:53; Status DC Ceftriaxone Sodium 2000 mg/ Sodium Chloride 100 ml @ 200 mls/hr Q12H IV Last administered on 09/17/17at 20:32; Start 08/03/17 at 17:00 Clonidine (Catapres) 0.1 mg DAILY PO Last administered on 08/24/17at 07:58; Start 08/15/17 at 09:00; Stop 08/24/17 at 13:35; Status DC Cyclobenzaprine HCl (Flexeril) 5 mg TID PRN PO SPASM Last administered on at 20:31; Start 08/14/17 at 20:30 Dexamethasone Sodium Phosphate (Decadron Inj) 8 mg ONCE ONCE IV PUSH Last administered on 07/29/17at 20:42; Start 07/29/17 at 20:15; Stop 07/29/17 at 20:16 ; Status DC Dextrose/Sodium Chloride 1,000 ml @ 100 mls/hr Q10H IV Last administered on at 23:14; Start 08/25/17 at 11:45; Stop 08/26/17 at 16:28; Status DC Enalaprilat (Vasotec Inj) 2.5 mg Q6H PRN IV PUSH SBP > 165 Last administered on 09/09/17at 00:39; Start 08/06/17 at 11:00 Enoxaparin Sodium (Lovenox Inj) 40 mg Q24H SQ Last administered on 09/17/17at 15 :33; Start 09/02/17 at 16:00 Famotidine (Pepcid) 20 mg BID PO Last administered on 09/17/17 20:31; Start at 21:00 Gabapentin (Neurontin) 600 mg BID PO Last administered on 09/17/17 20:31; Start 09/06/17 at 21:00 Hydralazine HCl (Apresoline Inj) 10 mg Q4H PRN IV PUSH SBP > 165; Start at 10:00; Stop 08/06/17 at 11:01; Status DC Hydromorphone HCl (Dilaudid Pf Inj) 0.5 mg Q3H PRN IV PUSH Pain 3-5; if unable to take PO; Start 08/14/17 at 19:30; Stop 08/22/17 at 15:54; Status DC Lactic Acid (Lac-Hydrin 12% Lotion) 1 applic BID TOPICAL Last administered on at 09:17; Start 08/17/17 at 11:00 Lactulose (Lactulose Liq) 30 ml DAILY PRN PO SEVERE CONSITIPATION/ IF PO Last administered on 08/19/17at 13:55; Start 07/29/17 at 23:15 Lorazepam (Ativan Inj) 1 mg Q2H PRN IV PUSH AGITATION/WITHDRAWAL Last administered on 08/14/17at 19:10; Start 07/29/17 at 23:15; Stop 08/24/17 at 13:35 ; Status DC Magnesium Hydroxide (Milk Of Magnesia Liq) 30 ml Q12H PRN PO Mild constipation ; Start 07/29/17 at 23:15 Magnesium Citrate (Citroma Liq) 300 ml ONCE ONCE PO Last administered on at 15:15; Start 08/21/17 at 13:15; Stop 08/21/17 at 13:16; Status DC Metoprolol Tartrate (Lopressor) 12.5 mg Q12HR PO Last administered on 20:31; Start 09/16/17 at 10:15 Miscellaneous (Pill Splitter) 1 ea UNSCH PRN OTHER SEE LABEL COMMENTS; Start at 10:30 Miscellaneous Information ([facility] [place] Nursing Information) ALL NURSING DEPARTME... UNSCH PRN .XX SEE LABEL COMMENTS; Start 08/14/17 at 20:00; Stop 08/15/17 at 19: 59; Status DC Morphine Sulfate (Morphine Inj) 2 mg Q3H PRN IV PUSH Pain 6-10 Last administered on 08/01/17at 01:54; Start 07/30/17 at 20:45; Stop 08/01/17 at 08:56; Status DC Naloxone HCl (Narcan Inj) 0.4 mg UNSCH PRN IV PUSH SEE LABEL COMMENTS; Start at 19:30 Ondansetron HCl (Zofran Inj) 4 mg Q6H PRN IVP NAUSEA OR VOMITING; Start at 23:15 Oxycodone HCl (Roxicodone) 5 mg ONCE ONCE PO Last administered on 07/31/17at 22: 40; Start 07/31/17 at 22:15; Stop 07/31/17 at 22:18; Status DC Oxycodone/ Acetaminophen (Percocet 5-325 Mg) 1 tab Q4HR PRN PO PAIN 4-10 Last administered on 09/18/17at 04:58; Start 08/09/17 at 10:00 Oxycodone/ Acetaminophen (Percocet 10-325 Mg) 1 tab Q4H PRN PO PAIN SCALE 4 TO 10 Last administered on 08/06/17at 05:36; Start 08/01/17 at 09:00; Stop 08/09/17 at 09:39; Status DC Pharmacy Profile Note 0 ml @ 0 mls/hr UNSCH OTHER ; Start 07/29/17 at 23:15; Stop 08/06/17 at 14:40; Status DC Polyethylene Glycol (Miralax) 17 gm DAILY PO Last administered on 09/13/17at 09: 15; Start 08/18/17 at 09:00 Prednisone (Deltasone) 10 mg DAILY PO Last administered on 09/17/17at 08:09; Start 08/21/17 at 09:00 Senna/Docusate Sodium (Emilie-Colace) 1 tab BID PO Last administered on at 20:31; Start 07/30/17 at 09:00 Sennosides (Senokot) 17.2 mg Q12H PRN PO Moderate constipation; Start 07/29/17 at 23:15 Sodium Chloride 250 ml @ 15 mls/hr ONCE ONCE IV Last administered on at 10:17; Start 08/28/17 at 06:15; Stop 08/28/17 at 22:54; Status DC Sodium Chloride (NS Flush) 2 ml BID IV FLUSH Last administered on 09/17/17at 20: 32; Start 07/30/17 at 09:00 Vancomycin HCl 1000 mg/Sodium Chloride 250 ml @ 250 mls/hr ONCE ONCE IV Last administered on 07/30/17at 12:08; Start 07/30/17 at 12:00; Stop 07/30/17 at 12:59 ; Status DC Vancomycin HCl 1500 mg/Sodium Chloride 515 ml @ 257.5 mls/ hr ONCE ONCE IV Last administered on 07/31/17at 18:19; Start 07/31/17 at 18:00; Stop 07/31/17 at 19: 59; Status DC Vancomycin HCl 1750 mg/Sodium Chloride 517.5 ml @ 257.5 mls/ hr ONCE ONCE IV Last administered on 08/06/17at 14:05; Start 08/06/17 at 13:00; Stop 08/06/17 at 14: 40; Status DC Vancomycin HCl 2000 mg/Sodium Chloride 520 ml @ 250 mls/hr ONCE ONCE IV Last administered on 08/02/17at 14:50; Start 08/02/17 at 14:00; Stop 08/02/17 at 16:04; Status DC Vancomycin/Sodium Chloride 200 ml @ 200 mls/hr ONCE ONCE IV Last administered on 07/29/17at 23:55; Start 07/30/17 at 00:00; Stop 07/30/17 at 00:59 ; Status DC Zolpidem Tartrate (Ambien) 5 mg ONCE ONCE PO Last administered on 08/13/17at 01 :45; Start 08/13/17 at 01:45; Stop 08/13/17 at 01:46; Status DC A/P Problem List: (1) Osteomyelitis ICD Code: M86.9 - Osteomyelitis, unspecified Status: Acute (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 Osteomyelitis of the L5 vertebra/bilateral psoas muscle abscess/ bacteremia Status post CT-guided removal of fluid for culture as well as disc biopsy on 07/31. Appreciate neurosurgery, vascular surgery, infectious disease recommendations. Status post drainage of abscess on 08/14/17. Wound culture is negative. Mycobacterial and fungal cultures are negative. Bacteremia with Strep Anginosis. - 08/28 as per neurosurgery recommendations the patient will need at least 6 weeks(around the week of 09/18) of IV antibiotics then follow-up imaging study before consideration for procedure. -continue IV Rocephin- stop date per ID. 2. Encephalopathy Likely toxic secondary to drug abuse. S/P lumbar puncture. Evaluated by psychiatry, patient is capable of making decisions. - resolved. - Avoid overly sedating medications. 3. Cocaine abuse Urine toxicology positive for cocaine. There was concern that the patient may have used cocaine while in the hospital as his urine drug screen was positive 8 days after admission. - cessation instruction. - Visitors allowed again. 4. Right iliac artery aneurysm Patient noted to have a 2.9 cm aneurysm of the right internal iliac artery, possibly mycotic aneurysm. This was an incidental finding. He denies IV drug abuse. Appreciate vascular surgery recommendations. - No surgery planned at this time. 5. Chronic kidney disease stage II with acute kidney injury. Creatinine seems stable. - monitor and avoid nephrotoxins. 6. Hypoglycemia Episodes of low blood sugar into the 60s. Blood sugars more stable. - ADAT. Continue Ensure. 7. Anemia Seems chronic. Anemia likely multifactorial. Follow-up stool blood Hemoccult. -Hemoglobin stable. 8. Hypertension - continue amlodipine and metoprolol. 9. Sarcoidosis on chronic prednisone. 10. 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 Outpatient follow-up DVT prophylaxis: SCDs and Lovenox subcutaneously. Discharge Planning dc planning when IV antibiotics course has been completed. Mainor Grace MD Sep 18, 2017 08:30
[2017-09-18] MEDS: DOCUSATE SODIUM 50 MG/SENNA 8.6 MG TAB PO SCH ×2 (09:00→20:50)
[2017-09-18] MEDS: LACTIC ACID (AMMONIUM LACTATE) 12% LOTION 225 GM BTL TOPICAL SCH ×4 (09:00→20:51)
[2017-09-18] MEDS: POLYETHYLENE GLYCOL 17 GM PKG PO SCH (09:00)
[2017-09-18] MEDS: cefTRIAXone INJ 2,000 MG in SODIUM CHLORIDE 0.9% INJ 100 ML IV SCH ×2 (10:08→20:51)
[2017-09-18] MEDS: METOPROLOL TARTRATE 25 MG TAB PO SCH ×2 (10:09→20:50)
[2017-09-18] MEDS: FAMOTIDINE 20 MG TAB PO SCH ×2 (10:09→20:50)
[2017-09-18] MEDS: GABAPENTIN 300 MG CAP PO SCH ×2 (10:09→20:50)
[2017-09-18] MEDS: SODIUM CHLORIDE 0.9% FLUSH 10 ML FLUSH IV FLUSH SCH ×2 (10:09→20:50)
[2017-09-18] MEDS: predniSONE 10 MG TAB PO SCH (10:09)
[2017-09-18 12:00] VITALS: BP 127/80; PULSE 92; RESP 17; TEMP 97; O2SAT 96
[2017-09-18] MEDS ORDERED: WALKER WHEELS/F1 MIS (15:00)
[2017-09-18 16:00] VITALS: BP 144/83; PULSE 92; RESP 17; TEMP 98; O2SAT 95
[2017-09-18] MEDS: CYCLOBENZAPRINE HCL 10 MG TAB PO PRN (17:40)
[2017-09-18] MEDS: ENOXAPARIN SODIUM 40 MG/0.4 ML SYRINGE SQ SCH (17:40)
[2017-09-18 20:38] VITALS: BP 136/87; PULSE 97; RESP 18; TEMP 98.7; O2SAT 96
[2017-09-19 00:26] VITALS: BP 117/77; PULSE 84; RESP 18; TEMP 97.5; O2SAT 95
[2017-09-19] MEDS: oxyCODONE/ACETAMINOPHEN 5 MG/325 MG TAB PO PRN ×2 (05:49→20:30)
[2017-09-19] MEDS: CYCLOBENZAPRINE HCL 10 MG TAB PO PRN ×2 (05:49→20:29)
[2017-09-19 08:00] VITALS: BP 138/77; PULSE 88; RESP 17; TEMP 97.2; O2SAT 97
[2017-09-19] MEDS: LACTIC ACID (AMMONIUM LACTATE) 12% LOTION 225 GM BTL TOPICAL SCH ×4 (09:00→20:30)
[2017-09-19] MEDS: DOCUSATE SODIUM 50 MG/SENNA 8.6 MG TAB PO SCH ×2 (09:00→20:32)
[2017-09-19] MEDS: POLYETHYLENE GLYCOL 17 GM PKG PO SCH (09:00)
[2017-09-19] MEDS: GABAPENTIN 300 MG CAP PO SCH ×2 (09:40→20:29)
[2017-09-19] MEDS: METOPROLOL TARTRATE 25 MG TAB PO SCH ×2 (09:40→20:30)
[2017-09-19] MEDS: predniSONE 10 MG TAB PO SCH (09:40)
[2017-09-19] MEDS: FAMOTIDINE 20 MG TAB PO SCH ×2 (09:40→20:29)
[2017-09-19] MEDS: cefTRIAXone INJ 2,000 MG in SODIUM CHLORIDE 0.9% INJ 100 ML IV SCH ×2 (09:41→20:31)
[2017-09-19] MEDS: SODIUM CHLORIDE 0.9% FLUSH 10 ML FLUSH IV FLUSH SCH ×2 (09:41→20:33)
--- NOTE | 2017-09-19 10:33 | HHI.PR ---
Subjective Remarks in no acute distress. pain is controlled. no new complaints. Objective Vitals Vital Signs Date Time Temp Pulse Resp B/P (MAP) Pulse Ox O2 Delivery O2 Flow Rate FiO2 09/19/17 00:26 97.5 84 18 117/77 (90) 95 09/18/17 20:38 98.7 97 18 136/87 (103) 96 09/18/17 16:00 98.0 92 17 144/83 (103) 95 09/18/17 12:00 97.0 92 17 127/80 (96) 96 I/O 09/18/17 09/18/17 09/18/17 09/19/17 09/19/17 09/19/17 07:00 15:00 23:00 07:00 15:00 23:00 Intake Total 780 ml 1000 ml 780 ml Output Total 1800 ml 1900 ml 1200 ml Balance -1020 ml -900 ml -420 ml Intake Oral 780 ml 900 ml 780 ml IV Total 100 ml Output Urine Total 1800 ml 1900 ml 1200 ml # Bowel Movements 1 1 0 Imaging Last Impressions Needle Aspiration CT 08/30/17 1356 Signed Impressions: CONCLUSION: 1. Uncomplicated procedure as above. Lumbar Spine CT 08/29/17 0000 Signed Impressions: CONCLUSION: 1. There is destructive changes involving the disc space at L4-5 characteristi c for discitis. 2. There are destructive changes predominantly in the body of L5 consistent wi th osteomyelitis. There is prominent paraspinal soft tissue swelling at the L4- L5 level. 3. Mild grade 1 anterior spondylolisthesis of L4 over L5. 4. Limited visualization of the spinal canal at L4-5 due to the inflammatory c hanges. 5. Bilateral facet arthritis at multiple levels. 6. Broad-based bulging at L2-3 and L3-4. Lumbar Spine MRI 08/28/17 0000 Signed Impressions: CONCLUSION: 1. Improvement as above. Persistent fluid remains on the left. Persistent evid ence for inflammatory process remains at the L4-5 disc. 2. Less inflammatory changes in the retroperitoneum. Chest X-Ray 08/15/17 0000 Signed Impressions: Service Date/Time: Tuesday, August 15, 2017 11:34 - CONCLUSION: Mild compensated cardiomegaly Roly Reina MD FACR Lumbar Puncture Fluoroscopy 08/08/17 0000 Signed Impressions: Service Date/Time: Tuesday, August 08, 2017 15:42 - CONCLUSION: Uncomplicated fluoroscopically guided lumbar puncture. Fady Chan MD Needle Biopsy/Aspiration X-Ray 07/31/17 0000 Signed Impressions: Service Date/Time: Monday, July 31, 2017 13:29 - CONCLUSION: Uncomplicated needle biopsy of the L4/L5 disc space as above. Candelario Reina MD Abdomen/Pelvis CT 07/29/17 0000 Signed Impressions: Service Date/Time: Saturday, July 29, 2017 22:14 - CONCLUSION: 1. Significant new prevertebral soft tissue fullness and stranding centered at the L5 level. There is associated sclerosis and erosive changes in the anterior L5 vertebral body which appear unchanged from recent exams. Overall, findings are concerning for discitis and osteomyelitis. Consider repeat MRI examination for further evaluation. 2. 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 However, evaluation is significantly limited due to lack of IV contrast on this exam. This was not present on remote prior CT exam. A mycotic aneurysm cannot be entirely excluded. Contrast enhanced examination would be greatly beneficial in further evaluation. 3. Nodular appearing liver contour consistent with cirrhosis. 4. IVC filter in place. 5. Cholelithiasis. Tanner Jones MD Objective Remarks GENERAL: This is a well-nourished, well-developed patient, in no apparent distress. CARDIOVASCULAR: Regular rate and regular rhythm without murmurs, gallops, or rubs. RESPIRATORY: Clear to auscultation. Breath sounds equal bilaterally. No wheezes , rales, or rhonchi. GASTROINTESTINAL: Abdomen soft, non-tender, nondistended. Normal, active bowel sounds MUSCULOSKELETAL: Extremities without clubbing, cyanosis, or edema. NEURO: lethargic but arousable. Procedures CT-guided removal of fluid for culture as well as disc biopsy L4-5 on 07/31/17 08/14/17 lateral oblique approach for drainage of lumbar retroperitoneal and bilateral psoas muscle abscess [id number] needle aspiration of psoas muscle abscess. . Medications and IVs Inpatient Medications Acetaminophen (Tylenol) 650 mg Q6H PRN PO FEVER/PAIN SCALE 1 TO 2 Last administered on 08/15/17at 07:38; Start 07/29/17 at 23:15 Albuterol Sulfate (Proair Hfa Inh) 2 puff Q4H PRN INH SHORTNESS OF BREATH; Start 08/14/17 at 20:30 Amlodipine Besylate (Norvasc) 10 mg DAILY PO ; Start 08/15/17 at 09:00; Stop at 14:31; Status DC Bisacodyl (Dulcolax Supp) 10 mg DAILY PRN RECTAL SEVERE CONSITIPATION/ IF NPO ; Start 07/29/17 at 23:15 Calcium Carbonate (Tums Chew) 500 mg Q2H PRN CHEW indigestion Last administered on 08/05/17at 13:49; Start 08/02/17 at 19:30 Cefepime HCl 1000 mg/Sodium Chloride 100 ml @ 200 mls/hr Q12H IV Last administered on 08/01/17at 21:37; Start 07/30/17 at 09:00; Stop 08/02/17 at 06:53; Status DC Ceftriaxone Sodium 2000 mg/ Sodium Chloride 100 ml @ 200 mls/hr Q12H IV Last administered on 09/19/17at 09:41; Start 08/03/17 at 17:00 Clonidine (Catapres) 0.1 mg DAILY PO Last administered on 08/24/17at 07:58; Start 08/15/17 at 09:00; Stop 08/24/17 at 13:35; Status DC Cyclobenzaprine HCl (Flexeril) 5 mg TID PRN PO SPASM Last administered on at 05:49; Start 08/14/17 at 20:30 Dexamethasone Sodium Phosphate (Decadron Inj) 8 mg ONCE ONCE IV PUSH Last administered on 07/29/17at 20:42; Start 07/29/17 at 20:15; Stop 07/29/17 at 20:16 ; Status DC Dextrose/Sodium Chloride 1,000 ml @ 100 mls/hr Q10H IV Last administered on at 23:14; Start 08/25/17 at 11:45; Stop 08/26/17 at 16:28; Status DC Enalaprilat (Vasotec Inj) 2.5 mg Q6H PRN IV PUSH SBP > 165 Last administered on 09/09/17at 00:39; Start 08/06/17 at 11:00 Enoxaparin Sodium (Lovenox Inj) 40 mg Q24H SQ Last administered on 09/18/17 17 :40; Start 09/02/17 at 16:00 Famotidine (Pepcid) 20 mg BID PO Last administered on 09/19/17 09:40; Start at 21:00 Gabapentin (Neurontin) 600 mg BID PO Last administered on 09/19/17 09:40; Start 09/06/17 at 21:00 Hydralazine HCl (Apresoline Inj) 10 mg Q4H PRN IV PUSH SBP > 165; Start at 10:00; Stop 08/06/17 at 11:01; Status DC Hydromorphone HCl (Dilaudid Pf Inj) 0.5 mg Q3H PRN IV PUSH Pain 3-5; if unable to take PO; Start 08/14/17 at 19:30; Stop 08/22/17 at 15:54; Status DC Lactic Acid (Lac-Hydrin 12% Lotion) 1 applic BID TOPICAL Last administered on 09:17; Start 08/17/17 at 11:00 Lactulose (Lactulose Liq) 30 ml DAILY PRN PO SEVERE CONSITIPATION/ IF PO Last administered on 08/19/17at 13:55; Start 07/29/17 at 23:15 Lorazepam (Ativan Inj) 1 mg Q2H PRN IV PUSH AGITATION/WITHDRAWAL Last administered on 08/14/17 19:10; Start 07/29/17 at 23:15; Stop 08/24/17 at 13:35 ; Status DC Magnesium Hydroxide (Milk Of Magnesia Liq) 30 ml Q12H PRN PO Mild constipation ; Start 07/29/17 at 23:15 Magnesium Citrate (Citroma Liq) 300 ml ONCE ONCE PO Last administered on at 15:15; Start 08/21/17 at 13:15; Stop 08/21/17 at 13:16; Status DC Metoprolol Tartrate (Lopressor) 12.5 mg Q12HR PO Last administered on 09:40; Start 09/16/17 at 10:15 Miscellaneous (Pill Splitter) 1 ea UNSCH PRN OTHER SEE LABEL COMMENTS Last administered on 09/18/17at 17:40; Start 09/16/17 at 10:30 Miscellaneous Information ([facility] [place] Nursing Information) ALL NURSING DEPARTME... UNSCH PRN .XX SEE LABEL COMMENTS; Start 08/14/17 at 20:00; Stop 08/15/17 at 19: 59; Status DC Morphine Sulfate (Morphine Inj) 2 mg Q3H PRN IV PUSH Pain 6-10 Last administered on 08/01/17at 01:54; Start 07/30/17 at 20:45; Stop 08/01/17 at 08:56; Status DC Naloxone HCl (Narcan Inj) 0.4 mg UNSCH PRN IV PUSH SEE LABEL COMMENTS; Start at 19:30 Ondansetron HCl (Zofran Inj) 4 mg Q6H PRN IVP NAUSEA OR VOMITING; Start at 23:15 Oxycodone HCl (Roxicodone) 5 mg ONCE ONCE PO Last administered on 07/31/17at 22: 40; Start 07/31/17 at 22:15; Stop 07/31/17 at 22:18; Status DC Oxycodone/ Acetaminophen (Percocet 5-325 Mg) 1 tab Q4HR PRN PO PAIN 4-10 Last administered on 09/19/17at 05:49; Start 08/09/17 at 10:00 Oxycodone/ Acetaminophen (Percocet 10-325 Mg) 1 tab Q4H PRN PO PAIN SCALE 4 TO 10 Last administered on 08/06/17at 05:36; Start 08/01/17 at 09:00; Stop 08/09/17 at 09:39; Status DC Pharmacy Profile Note 0 ml @ 0 mls/hr UNSCH OTHER ; Start 07/29/17 at 23:15; Stop 08/06/17 at 14:40; Status DC Polyethylene Glycol (Miralax) 17 gm DAILY PO Last administered on 09/13/17at 09: 15; Start 08/18/17 at 09:00 Prednisone (Deltasone) 10 mg DAILY PO Last administered on 09/19/17at 09:40; Start 08/21/17 at 09:00 Senna/Docusate Sodium (Emilie-Colace) 1 tab BID PO Last administered on at 20:50; Start 07/30/17 at 09:00 Sennosides (Senokot) 17.2 mg Q12H PRN PO Moderate constipation; Start 07/29/17 at 23:15 Sodium Chloride 250 ml @ 15 mls/hr ONCE ONCE IV Last administered on at 10:17; Start 08/28/17 at 06:15; Stop 08/28/17 at 22:54; Status DC Sodium Chloride (NS Flush) 2 ml BID IV FLUSH Last administered on 09/19/17at 09: 41; Start 07/30/17 at 09:00 Vancomycin HCl 1000 mg/Sodium Chloride 250 ml @ 250 mls/hr ONCE ONCE IV Last administered on 07/30/17at 12:08; Start 07/30/17 at 12:00; Stop 07/30/17 at 12:59 ; Status DC Vancomycin HCl 1500 mg/Sodium Chloride 515 ml @ 257.5 mls/ hr ONCE ONCE IV Last administered on 07/31/17at 18:19; Start 07/31/17 at 18:00; Stop 07/31/17 at 19: 59; Status DC Vancomycin HCl 1750 mg/Sodium Chloride 517.5 ml @ 257.5 mls/ hr ONCE ONCE IV Last administered on 08/06/17at 14:05; Start 08/06/17 at 13:00; Stop 08/06/17 at 14: 40; Status DC Vancomycin HCl 2000 mg/Sodium Chloride 520 ml @ 250 mls/hr ONCE ONCE IV Last administered on 08/02/17at 14:50; Start 08/02/17 at 14:00; Stop 08/02/17 at 16:04; Status DC Vancomycin/Sodium Chloride 200 ml @ 200 mls/hr ONCE ONCE IV Last administered on 07/29/17at 23:55; Start 07/30/17 at 00:00; Stop 07/30/17 at 00:59 ; Status DC Zolpidem Tartrate (Ambien) 5 mg ONCE ONCE PO Last administered on 08/13/17at 01 :45; Start 08/13/17 at 01:45; Stop 08/13/17 at 01:46; Status DC A/P Problem List: (1) Osteomyelitis ICD Code: M86.9 - Osteomyelitis, unspecified Status: Acute (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 Osteomyelitis of the L5 vertebra/bilateral psoas muscle abscess/ bacteremia Status post CT-guided removal of fluid for culture as well as disc biopsy on 07/31. Appreciate neurosurgery, vascular surgery, infectious disease recommendations. Status post drainage of abscess on 08/14/17. Wound culture is negative. Mycobacterial and fungal cultures are negative. Bacteremia with Strep Anginosis. - 08/28 as per neurosurgery recommendations the patient will need at least 6 weeks(around the week of 09/18) of IV antibiotics then follow-up imaging study before consideration for procedure. -continue IV Rocephin- stop date per ID. 2. Encephalopathy Likely toxic secondary to drug abuse. S/P lumbar puncture. Evaluated by psychiatry, patient is capable of making decisions. - resolved. - Avoid overly sedating medications. 3. Cocaine abuse Urine toxicology positive for cocaine. There was concern that the patient may have used cocaine while in the hospital as his urine drug screen was positive 8 days after admission. - cessation instruction. - Visitors allowed again. 4. Right iliac artery aneurysm Patient noted to have a 2.9 cm aneurysm of the right internal iliac artery, possibly mycotic aneurysm. This was an incidental finding. He denies IV drug abuse. Appreciate vascular surgery recommendations. - No surgery planned at this time. 5. Chronic kidney disease stage II with acute kidney injury. Creatinine seems stable. - monitor and avoid nephrotoxins. 6. Hypoglycemia Episodes of low blood sugar into the 60s. Blood sugars more stable. - ADAT. Continue Ensure. 7. Anemia Seems chronic. Anemia likely multifactorial. Follow-up stool blood Hemoccult. -Hemoglobin stable. 8. Hypertension - continue amlodipine and metoprolol. 9. Sarcoidosis on chronic prednisone. 10. 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 Outpatient follow-up DVT prophylaxis: SCDs and Lovenox subcutaneously. Discharge Planning dc planning when IV antibiotics course has been completed. Mainor Grace MD Sep 19, 2017 10:33
[2017-09-19 12:00] VITALS: BP 112/71; PULSE 89; RESP 17; TEMP 97.8; O2SAT 96
--- NOTE | 2017-09-19 14:57 | HHI.IDPN ---
Subjective Subjective Remarks Mr. Gee is a 57-year-old -[place] male with past medical history significant for rheumatoid arthritis on prednisone. From infectious disease standpoint his past medical history significant for prior history of strep epidural abscess as well as bacteremia treated with IV antibiotics and also needing L4 partial laminectomy in 2013 as well as an abscess on the skin of his back.. His past medical history is also significant for chronic kidney disease stage III, chronic back pain, cocaine abuse and tobacco abuse who presented to the emergency department with complaints of severe back pain. Patient is an extremely poor historian and reports that he has had a prior visit to the emergency room on July 23, 2017 with similar symptoms. An MRI of the L-spine did not show any evidence of infection patient was asked to follow-up with Dr. Pineda whom he has seen in the past. On arrival, BP 125/71, HR 86, O2 sat 100% RA, Afebrile. WBC 20.8. Na 128. K+ 5.5. Creatinine 2.84, previously 2.97 on 07/23/2017. INR 1.1. UA negative for UTI. 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 S/p Vanc/ Rocephin in ER. At the time of my evaluation patient is on a regular floor. Appears to be comfortable not in significant pain involving his extremities. Patient reports tingling numbness and extreme pain in his bilateral lower extremities right more than left. Patient denies any bowel bladder incontinence. Denies any decrease in perineal sensation. Infectious diseases consulted for evaluation and management of discitis and epidural abscess. Overnight events reviewed. no fever or chills no rash no N/V no diarrhea Complains of tingling numbness. Antibiotics IV Ceftriaxone q 12 Lines Line sites with no e.o infection. Past Medical History reviewed. Allergies: Coded Allergies: *MDRO Multi-Drug Resistant Organism (Verified Adverse Reaction, Unknown, ) MRSA (leg wound) - 10/2006 MRSA PCR screen positive - 10/2014 Objective . Vital Signs Date Time Temp Pulse Resp B/P (MAP) Pulse Ox O2 Delivery O2 Flow Rate FiO2 09/19/17 12:00 97.8 89 17 112/71 (85) 96 09/19/17 08:00 97.2 88 17 138/77 (97) 97 09/19/17 00:26 97.5 84 18 117/77 (90) 95 09/18/17 20:38 98.7 97 18 136/87 (103) 96 09/18/17 16:00 98.0 92 17 144/83 (103) 95 Imaging Last Impressions Needle Aspiration CT 08/30/17 1356 Signed Impressions: CONCLUSION: 1. Uncomplicated procedure as above. Lumbar Spine CT 08/29/17 0000 Signed Impressions: CONCLUSION: 1. There is destructive changes involving the disc space at L4-5 characteristi c for discitis. 2. There are destructive changes predominantly in the body of L5 consistent wi th osteomyelitis. There is prominent paraspinal soft tissue swelling at the L4- L5 level. 3. Mild grade 1 anterior spondylolisthesis of L4 over L5. 4. Limited visualization of the spinal canal at L4-5 due to the inflammatory c hanges. 5. Bilateral facet arthritis at multiple levels. 6. Broad-based bulging at L2-3 and L3-4. Lumbar Spine MRI 08/28/17 0000 Signed Impressions: CONCLUSION: 1. Improvement as above. Persistent fluid remains on the left. Persistent evid ence for inflammatory process remains at the L4-5 disc. 2. Less inflammatory changes in the retroperitoneum. Chest X-Ray 08/15/17 0000 Signed Impressions: Service Date/Time: Tuesday, August 15, 2017 11:34 - CONCLUSION: Mild compensated cardiomegaly Roly Reina MD FACR Lumbar Puncture Fluoroscopy 08/08/17 0000 Signed Impressions: Service Date/Time: Tuesday, August 08, 2017 15:42 - CONCLUSION: Uncomplicated fluoroscopically guided lumbar puncture. Fady Chan MD Needle Biopsy/Aspiration X-Ray 07/31/17 0000 Signed Impressions: Service Date/Time: Monday, July 31, 2017 13:29 - CONCLUSION: Uncomplicated needle biopsy of the L4/L5 disc space as above. Candelario Reina MD Abdomen/Pelvis CT 07/29/17 0000 Signed Impressions: Service Date/Time: Saturday, July 29, 2017 22:14 - CONCLUSION: 1. Significant new prevertebral soft tissue fullness and stranding centered at the L5 level. There is associated sclerosis and erosive changes in the anterior L5 vertebral body which appear unchanged from recent exams. Overall, findings are concerning for discitis and osteomyelitis. Consider repeat MRI examination for further evaluation. 2. 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 However, evaluation is significantly limited due to lack of IV contrast on this exam. This was not present on remote prior CT exam. A mycotic aneurysm cannot be entirely excluded. Contrast enhanced examination would be greatly beneficial in further evaluation. 3. Nodular appearing liver contour consistent with cirrhosis. 4. IVC filter in place. 5. Cholelithiasis. Tanner Jones MD Physical Exam GENERAL: Well developed well nourished male patient, INAD. Awake and alert. Lying in hospital bed. Becomes tearful talking about his brothers tomorrow. SKIN: Warm and dry. No obvious rash. HEAD: Atraumatic. Normocephalic. EYES: EOMI. No scleral icterus. No injection or drainage. ENT: No gross bleeding. MMM. NECK: Trachea midline. Moves neck in all directions. No rigidity noted. CARDIOVASCULAR: Regular rate and rhythm. RESPIRATORY: Nonlabored. Diminished. Clear to auscultation anteriorly. GASTROINTESTINAL: Soft, postop with surgical incision over left side of abdomen with dry and intact dressing, incision appears to be healing well. MUSCULOSKELETAL: No pedal edema NEUROLOGICAL: Awake and alert. Moves all extremities spontaneously. Decreased ROM RLE. Normal speech. PSYCHIATRIC: Calm and cooperative. IV line sites with no e.o infection Assessment & Plan Remarks Strep bacteremia, probable endocarditis Probable meningitis based on glucose and total protein (partially treated by the time LP done) Epidural abscess Discitis. - Repeat MRI shows persistent fluid remains on the left. Persistent evidence for inflammatory process remains at the L4-5 disc and Less inflammatory changes in the retroperitoneum. Bilateral psoas fluid collection s/p I&D 08/14 with 250ml yellowish purulent material removed. Fever postop, resolved. -repeat MRI shows persistent fluid remains on the left. Persistent evidence for inflammatory process remains at the L4-5 disc and less inflammatory changes in the retroperitoneum.improvement in the retroperitoneum with less inflammatory changes. Per Dr. Reina, appears multiloculated. 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 Immune compromised host on steroids Acute on chronic kidney disease, resolved Hyperkalemia, resolved Hep B reactive Anemia, hgb 6.9 s/p transfusion hgb 8.5 Recs Continue on IV Ceftriaxone q12h Will get CT L Spine next Sunday to assess fluid status. Follow clinically. Latricia Goldstein MD Sep 19, 2017 14:57
[2017-09-19 16:00] VITALS: BP 113/71; PULSE 100; RESP 17; TEMP 97.6; O2SAT 96
[2017-09-19] MEDS: ENOXAPARIN SODIUM 40 MG/0.4 ML SYRINGE SQ SCH (16:56)
[2017-09-19 20:00] VITALS: BP 105/62; PULSE 102; RESP 17; TEMP 97.8; O2SAT 94
[2017-09-20] VITALS: BP 126/64; PULSE 82; RESP 17; TEMP 98.7; O2SAT 96
[2017-09-20] MEDS: oxyCODONE/ACETAMINOPHEN 5 MG/325 MG TAB PO PRN (04:29)
[2017-09-20 08:00] VITALS: BP 123/80; PULSE 81; RESP 18; TEMP 97.5; O2SAT 96
[2017-09-20] MEDS: METOPROLOL TARTRATE 25 MG TAB PO SCH ×2 (08:01→20:35)
[2017-09-20] MEDS: FAMOTIDINE 20 MG TAB PO SCH ×2 (08:01→20:36)
[2017-09-20] MEDS: GABAPENTIN 300 MG CAP PO SCH ×2 (08:01→20:36)
[2017-09-20] MEDS: DOCUSATE SODIUM 50 MG/SENNA 8.6 MG TAB PO SCH ×2 (08:02→20:36)
[2017-09-20] MEDS: predniSONE 10 MG TAB PO SCH (08:02)
[2017-09-20] MEDS: POLYETHYLENE GLYCOL 17 GM PKG PO SCH (08:03)
[2017-09-20] MEDS: LACTIC ACID (AMMONIUM LACTATE) 12% LOTION 225 GM BTL TOPICAL SCH ×4 (08:03→21:00)
[2017-09-20] MEDS: SODIUM CHLORIDE 0.9% FLUSH 10 ML FLUSH IV FLUSH SCH ×2 (08:03→21:00)
--- NOTE | 2017-09-20 10:02 | HHI.PR ---
Subjective Remarks resting comfortably. pain is controlled. no fever. no new complaints. Objective Vitals Vital Signs Date Time Temp Pulse Resp B/P (MAP) Pulse Ox O2 Delivery O2 Flow Rate FiO2 09/20/17 05:36 20 09/20/17 00:00 98.7 82 17 126/64 (84) 96 09/19/17 20:00 97.8 102 17 105/62 (76) 94 09/19/17 16:00 97.6 100 17 113/71 (85) 96 09/19/17 12:00 97.8 89 17 112/71 (85) 96 I/O 09/19/17 09/19/17 09/19/17 09/20/17 09/20/17 09/20/17 07:00 15:00 23:00 07:00 15:00 23:00 Intake Total 780 ml 2500 ml 800 ml Output Total 1200 ml 800 ml 1300 ml Balance -420 ml 1700 ml -500 ml Intake Oral 780 ml 2500 ml 800 ml Output Urine Total 1200 ml 800 ml 1300 ml # Bowel Movements 0 1 Imaging Last Impressions Needle Aspiration CT 08/30/17 1356 Signed Impressions: CONCLUSION: 1. Uncomplicated procedure as above. Lumbar Spine CT 08/29/17 0000 Signed Impressions: CONCLUSION: 1. There is destructive changes involving the disc space at L4-5 characteristi c for discitis. 2. There are destructive changes predominantly in the body of L5 consistent wi th osteomyelitis. There is prominent paraspinal soft tissue swelling at the L4- L5 level. 3. Mild grade 1 anterior spondylolisthesis of L4 over L5. 4. Limited visualization of the spinal canal at L4-5 due to the inflammatory c hanges. 5. Bilateral facet arthritis at multiple levels. 6. Broad-based bulging at L2-3 and L3-4. Lumbar Spine MRI 08/28/17 0000 Signed Impressions: CONCLUSION: 1. Improvement as above. Persistent fluid remains on the left. Persistent evid ence for inflammatory process remains at the L4-5 disc. 2. Less inflammatory changes in the retroperitoneum. Chest X-Ray 08/15/17 0000 Signed Impressions: Service Date/Time: Tuesday, August 15, 2017 11:34 - CONCLUSION: Mild compensated cardiomegaly Roly Reina MD FACR Lumbar Puncture Fluoroscopy 08/08/17 0000 Signed Impressions: Service Date/Time: Tuesday, August 08, 2017 15:42 - CONCLUSION: Uncomplicated fluoroscopically guided lumbar puncture. Fady Chan MD Needle Biopsy/Aspiration X-Ray 07/31/17 0000 Signed Impressions: Service Date/Time: Monday, July 31, 2017 13:29 - CONCLUSION: Uncomplicated needle biopsy of the L4/L5 disc space as above. Candelario Reina MD Abdomen/Pelvis CT 07/29/17 0000 Signed Impressions: Service Date/Time: Saturday, July 29, 2017 22:14 - CONCLUSION: 1. Significant new prevertebral soft tissue fullness and stranding centered at the L5 level. There is associated sclerosis and erosive changes in the anterior L5 vertebral body which appear unchanged from recent exams. Overall, findings are concerning for discitis and osteomyelitis. Consider repeat MRI examination for further evaluation. 2. 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 However, evaluation is significantly limited due to lack of IV contrast on this exam. This was not present on remote prior CT exam. A mycotic aneurysm cannot be entirely excluded. Contrast enhanced examination would be greatly beneficial in further evaluation. 3. Nodular appearing liver contour consistent with cirrhosis. 4. IVC filter in place. 5. Cholelithiasis. Tanner Jones MD Objective Remarks GENERAL: This is a well-nourished, well-developed patient, in no apparent distress. CARDIOVASCULAR: Regular rate and regular rhythm without murmurs, gallops, or rubs. RESPIRATORY: Clear to auscultation. Breath sounds equal bilaterally. No wheezes , rales, or rhonchi. GASTROINTESTINAL: Abdomen soft, non-tender, nondistended. Normal, active bowel sounds MUSCULOSKELETAL: Extremities without clubbing, cyanosis, or edema. NEURO: lethargic but arousable. Procedures CT-guided removal of fluid for culture as well as disc biopsy L4-5 on 07/31/17 08/14/17 lateral oblique approach for drainage of lumbar retroperitoneal and bilateral psoas muscle abscess [id number] needle aspiration of psoas muscle abscess. . Medications and IVs Inpatient Medications Acetaminophen (Tylenol) 650 mg Q6H PRN PO FEVER/PAIN SCALE 1 TO 2 Last administered on 08/15/17at 07:38; Start 07/29/17 at 23:15 Albuterol Sulfate (Proair Hfa Inh) 2 puff Q4H PRN INH SHORTNESS OF BREATH; Start 08/14/17 at 20:30 Amlodipine Besylate (Norvasc) 10 mg DAILY PO ; Start 08/15/17 at 09:00; Stop at 14:31; Status DC Bisacodyl (Dulcolax Supp) 10 mg DAILY PRN RECTAL SEVERE CONSITIPATION/ IF NPO ; Start 07/29/17 at 23:15 Calcium Carbonate (Tums Chew) 500 mg Q2H PRN CHEW indigestion Last administered on 08/05/17 13:49; Start 08/02/17 at 19:30 Cefepime HCl 1000 mg/Sodium Chloride 100 ml @ 200 mls/hr Q12H IV Last administered on 08/01/17at 21:37; Start 07/30/17 at 09:00; Stop 08/02/17 at 06:53; Status DC Ceftriaxone Sodium 2000 mg/ Sodium Chloride 100 ml @ 200 mls/hr Q12H IV Last administered on 09/19/17at 20:31; Start 08/03/17 at 17:00 Clonidine (Catapres) 0.1 mg DAILY PO Last administered on 08/24/17at 07:58; Start 08/15/17 at 09:00; Stop 08/24/17 at 13:35; Status DC Cyclobenzaprine HCl (Flexeril) 5 mg TID PRN PO SPASM Last administered on at 20:29; Start 08/14/17 at 20:30 Dexamethasone Sodium Phosphate (Decadron Inj) 8 mg ONCE ONCE IV PUSH Last administered on 07/29/17at 20:42; Start 07/29/17 at 20:15; Stop 07/29/17 at 20:16 ; Status DC Dextrose/Sodium Chloride 1,000 ml @ 100 mls/hr Q10H IV Last administered on at 23:14; Start 08/25/17 at 11:45; Stop 08/26/17 at 16:28; Status DC Enalaprilat (Vasotec Inj) 2.5 mg Q6H PRN IV PUSH SBP > 165 Last administered on 09/09/17at 00:39; Start 08/06/17 at 11:00 Enoxaparin Sodium (Lovenox Inj) 40 mg Q24H SQ Last administered on 09/19/17 16 :56; Start 09/02/17 at 16:00 Famotidine (Pepcid) 20 mg BID PO Last administered on 09/20/17 08:01; Start at 21:00 Gabapentin (Neurontin) 600 mg BID PO Last administered on 09/20/17 08:01; Start 09/06/17 at 21:00 Hydralazine HCl (Apresoline Inj) 10 mg Q4H PRN IV PUSH SBP > 165; Start at 10:00; Stop 08/06/17 at 11:01; Status DC Hydromorphone HCl (Dilaudid Pf Inj) 0.5 mg Q3H PRN IV PUSH Pain 3-5; if unable to take PO; Start 08/14/17 at 19:30; Stop 08/22/17 at 15:54; Status DC Lactic Acid (Lac-Hydrin 12% Lotion) 1 applic BID TOPICAL Last administered on at 20:30; Start 08/17/17 at 11:00 Lactulose (Lactulose Liq) 30 ml DAILY PRN PO SEVERE CONSITIPATION/ IF PO Last administered on 08/19/17at 13:55; Start 07/29/17 at 23:15 Lorazepam (Ativan Inj) 1 mg Q2H PRN IV PUSH AGITATION/WITHDRAWAL Last administered on 08/14/17 19:10; Start 07/29/17 at 23:15; Stop 08/24/17 at 13:35 ; Status DC Magnesium Hydroxide (Milk Of Magnesia Liq) 30 ml Q12H PRN PO Mild constipation ; Start 07/29/17 at 23:15 Magnesium Citrate (Citroma Liq) 300 ml ONCE ONCE PO Last administered on at 15:15; Start 08/21/17 at 13:15; Stop 08/21/17 at 13:16; Status DC Metoprolol Tartrate (Lopressor) 12.5 mg Q12HR PO Last administered on 08:01; Start 09/16/17 at 10:15 Miscellaneous (Pill Splitter) 1 ea UNSCH PRN OTHER SEE LABEL COMMENTS Last administered on 09/18/17at 17:40; Start 09/16/17 at 10:30 Miscellaneous Information ([facility] Nursing Information) ALL NURSING DEPARTME... UNSCH PRN .XX SEE LABEL COMMENTS; Start 08/14/17 at 20:00; Stop 08/15/17 at 19: 59; Status DC Morphine Sulfate (Morphine Inj) 2 mg Q3H PRN IV PUSH Pain 6-10 Last administered on 08/01/17at 01:54; Start 07/30/17 at 20:45; Stop 08/01/17 at 08:56; Status DC Naloxone HCl (Narcan Inj) 0.4 mg UNSCH PRN IV PUSH SEE LABEL COMMENTS; Start at 19:30 Ondansetron HCl (Zofran Inj) 4 mg Q6H PRN IVP NAUSEA OR VOMITING; Start at 23:15 Oxycodone HCl (Roxicodone) 5 mg ONCE ONCE PO Last administered on 07/31/17at 22: 40; Start 07/31/17 at 22:15; Stop 07/31/17 at 22:18; Status DC Oxycodone/ Acetaminophen (Percocet 5-325 Mg) 1 tab Q4HR PRN PO PAIN 4-10 Last administered on 09/20/17at 04:29; Start 08/09/17 at 10:00 Oxycodone/ Acetaminophen (Percocet 10-325 Mg) 1 tab Q4H PRN PO PAIN SCALE 4 TO 10 Last administered on 08/06/17at 05:36; Start 08/01/17 at 09:00; Stop 08/09/17 at 09:39; Status DC Pharmacy Profile Note 0 ml @ 0 mls/hr UNSCH OTHER ; Start 07/29/17 at 23:15; Stop 08/06/17 at 14:40; Status DC Polyethylene Glycol (Miralax) 17 gm DAILY PO Last administered on 09/13/17at 09: 15; Start 08/18/17 at 09:00 Prednisone (Deltasone) 10 mg DAILY PO Last administered on 09/20/17at 08:02; Start 08/21/17 at 09:00 Senna/Docusate Sodium (Emilie-Colace) 1 tab BID PO Last administered on at 08:02; Start 07/30/17 at 09:00 Sennosides (Senokot) 17.2 mg Q12H PRN PO Moderate constipation; Start 07/29/17 at 23:15 Sodium Chloride 250 ml @ 15 mls/hr ONCE ONCE IV Last administered on at 10:17; Start 08/28/17 at 06:15; Stop 08/28/17 at 22:54; Status DC Sodium Chloride (NS Flush) 2 ml BID IV FLUSH Last administered on 09/20/17at 08: 03; Start 07/30/17 at 09:00 Vancomycin HCl 1000 mg/Sodium Chloride 250 ml @ 250 mls/hr ONCE ONCE IV Last administered on 07/30/17at 12:08; Start 07/30/17 at 12:00; Stop 07/30/17 at 12:59 ; Status DC Vancomycin HCl 1500 mg/Sodium Chloride 515 ml @ 257.5 mls/ hr ONCE ONCE IV Last administered on 07/31/17at 18:19; Start 07/31/17 at 18:00; Stop 07/31/17 at 19: 59; Status DC Vancomycin HCl 1750 mg/Sodium Chloride 517.5 ml @ 257.5 mls/ hr ONCE ONCE IV Last administered on 08/06/17at 14:05; Start 08/06/17 at 13:00; Stop 08/06/17 at 14: 40; Status DC Vancomycin HCl 2000 mg/Sodium Chloride 520 ml @ 250 mls/hr ONCE ONCE IV Last administered on 08/02/17at 14:50; Start 08/02/17 at 14:00; Stop 08/02/17 at 16:04; Status DC Vancomycin/Sodium Chloride 200 ml @ 200 mls/hr ONCE ONCE IV Last administered on 07/29/17at 23:55; Start 07/30/17 at 00:00; Stop 07/30/17 at 00:59 ; Status DC Zolpidem Tartrate (Ambien) 5 mg ONCE ONCE PO Last administered on 08/13/17at 01 :45; Start 08/13/17 at 01:45; Stop 08/13/17 at 01:46; Status DC A/P Problem List: (1) Osteomyelitis ICD Code: M86.9 - Osteomyelitis, unspecified Status: Acute (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 Osteomyelitis of the L5 vertebra/bilateral psoas muscle abscess/ bacteremia Status post CT-guided removal of fluid for culture as well as disc biopsy on 07/31. Appreciate neurosurgery, vascular surgery, infectious disease recommendations. Status post drainage of abscess on 08/14/17. Wound culture is negative. Mycobacterial and fungal cultures are negative. Bacteremia with Strep Anginosis. - 08/28 as per neurosurgery recommendations the patient will need at least 6 weeks(around the week of 09/18) of IV antibiotics then follow-up imaging study before consideration for procedure. -continue IV Rocephin- -CT lumbar spine next Sunday - per ID. 2. Encephalopathy Likely toxic secondary to drug abuse. S/P lumbar puncture. Evaluated by psychiatry, patient is capable of making decisions. - resolved. - Avoid overly sedating medications. 3. Cocaine abuse Urine toxicology positive for cocaine. There was concern that the patient may have used cocaine while in the hospital as his urine drug screen was positive 8 days after admission. - cessation instruction. - Visitors allowed again. 4. Right iliac artery aneurysm Patient noted to have a 2.9 cm aneurysm of the right internal iliac artery, possibly mycotic aneurysm. This was an incidental finding. He denies IV drug abuse. Appreciate vascular surgery recommendations. - No surgery planned at this time. 5. Chronic kidney disease stage II with acute kidney injury. Creatinine seems stable. - monitor and avoid nephrotoxins. 6. Hypoglycemia- resolved. - ADAT. Continue Ensure. 7. Anemia Seems chronic. Anemia likely multifactorial. Follow-up stool blood Hemoccult. -Hemoglobin stable. 8. Hypertension - continue amlodipine and metoprolol. 9. Sarcoidosis on chronic prednisone. 10. 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 Outpatient follow-up DVT prophylaxis: SCDs and Lovenox subcutaneously. Discharge Planning when cleared by ID- Mainor Grace MD Sep 20, 2017 10:02
[2017-09-20] MEDS: cefTRIAXone INJ 2,000 MG in SODIUM CHLORIDE 0.9% INJ 100 ML IV SCH ×2 (10:53→22:00)
[2017-09-20 12:00] VITALS: BP 123/82; PULSE 92; RESP 18; TEMP 97.5; O2SAT 96
--- NOTE | 2017-09-20 14:54 | HHI.HCPN ---
Reason for visit a. To assist with evaluation and management of symptoms including: Pain, anxiety,debility b. To assist medical decision maker(s) with: better understanding of current medical conditions; weighing benefits/burdens of medical treatment options; making medical treatment decisions. . Subjective/Interval History Follow-up medically necessary for symptom management. Patient seen and examined in his room. Patient is sleeping, easily arousable, alert, oriented to self, place and situation. Patient endorsing "feeling good". Patient denies pain at this time though expresses that all he his now is more of a "nagging" pain especially to his left lower extremity when he is ambulating and neuropathic pain. Pain is currently managed with oxycodone 5 mg. Patient required 3 doses in the past 24 hours. Patient is also using cyclobenzaprine 5 mg prn, last dose administered on 09/19/17. Patient is also on scheduled gabapentin 600 mg twice daily. Per Infectious disease note, plan is to continue with antibiotics and do a follow-up CT of lumbar spine next Sunday to assess fluid status. Physical therapy following with patient. Patient's goals remain aggressive and patient states that he is feeling good and he is hopeful that the follow-up imaging will not show recurrence abscess. . Family/friend interactions No family at bedside . Advance Directives Living Will: Never completed Health Care Surrogate: Copy in medical record Durable Power of Integrity Engineer: Never completed Advance Directive Specifics Date completed: 08/09/2017 . Health Care Surrogate(s): Healthcare surrogate-Friend- Jennifer Kendrick- [phone] Alternate healthcare surrogate -Son-Kalyan Gee Kw-[phone]/ 3rd choice- If the above-mentioned are not able to serve, patient designated his ex- -Kelly Gee as his second Alternate healthcare surrogate . Documented care wishes: No written documentation of health care goals/preferences . Objective Vital Signs Date Time Temp Pulse Resp B/P (MAP) Pulse Ox O2 Delivery O2 Flow Rate FiO2 09/20/17 12:00 97.5 92 18 123/82 (96) 96 09/20/17 08:00 97.5 81 18 123/80 (94) 96 09/20/17 05:36 20 09/20/17 00:00 98.7 82 17 126/64 (84) 96 09/19/17 20:00 97.8 102 17 105/62 (76) 94 09/19/17 16:00 97.6 100 17 113/71 (85) 96 Intake & Output 09/20/17 09/20/17 07:00 19:00 Intake Total 800 ml Output Total 1300 ml Balance -500 ml Intake Oral 800 ml Output Urine Total 1300 ml Physical Exam CONSTITUTIONAL/GENERAL: This is an adequately nourished patient, in no acute distress TUBES/LINES/DRAINS:PIV SKIN: Dry. Normothermic. Healed surgical incision. ENT: Hearing grossly normal. No nasal bleeding or drainage noted. Moist oral mucosa CARDIOVASCULAR: S1, S2 normal, no audible murmurs, gallops, or rubs. RESPIRATORY/CHEST: Symmetric, unlabored respirations. Clear to auscultation. GASTROINTESTINAL: Abdomen soft, non-tender. Bowel sounds present. Last BM 09/19 MUSCULOSKELETAL: Extremities without clubbing, cyanosis, or edema. NEUROLOGICAL: Sleeping and easily arousable, oriented to self, place and situation. Moves all extremities to command. PSYCHIATRIC: No obvious anxiety/depression.Calm. . Diagnostic Tests Procedures 08/08/17 needle biopsy of the L4/L5 disc space/aspiration x-ray 08/14/17-lateral oblique approach for drainage of lumbar retroperitoneal and bilateral psoas muscle abscess by neurosurgery 08/14/17-Retroperitoneal approach to the psoas muscle and drainage of psoas abscess and paraspinal abscess drainage by general surgery 08/30/1797-[id number] needle aspiration of psoas muscle abscess. . Assessment and Plan Disease Oriented Problem List: (1) Osteomyelitis (2) Cocaine abuse (3) Mycotic aneurysm (4) CKD (chronic kidney disease) stage 3, GFR 30-59 ml/min Comment: Improving. . (5) Hypertension (6) Rheumatoid arthritis Symptom Scale: (1) Pain 0-10 Scale: 10 Comment: All his pain complaints are low back. Inadequately helped by current regimen. Pain normally 9-10 decreasing to 8-9 after parenteral hydromorphone. . . (2) Anxiety Comment: Patient reported to psychiatry that he was feeling anxious . (3) Debility Comment: Progressive . Pertinent Non-Medical Issues Psychosocial:Patient was born and raised in [place]. Patient is . Patient's highest level of education is high school. He is currently unemployed and disabled. Patient has 1 son Gerard Biggs Jr. He has been living with his nephew Jennifer Kendrick for the past 4 years. Spiritual: Patient is Pentecostalism Legal: No living will. Health care surrogate designation completed 08/09/17 -- he wants his friend Jennifer Manuel to serve. Ethical issues impacting care: None identified at this time . Important Contacts Mireille Rodriguez (Health care surrogate and close friend) -[phone]/ (he has been living with patient for the past 4 years) Kalyan Gee Jr (son and alternate HCS) - [phone] Cell/[phone] work Kelly Gee (ex- and 2nd alternate HCS) Patricia Joy ( of Jennifer Manuel) [phone] Brother- Miles Gee [phone] PATIENT HAS GIVEN PERMISSION TO DISCUSS DETAILS OF HIS CASE AND CARE WITH THE ABOVE. . . Prognosis Mr. Gee is a 57-year-old male with a past medical history significant for chronic back pain, lumbar osteomyelitis and discitis s/p L4-L5 laminectomy 2014 , rheumatoid arthritis, hyperlipidemia, chronic kidney stage III, cocaine abuse and tobacco abuse. Patient presented to the ER on 07/29/17 with complaints of severe back pain. Diagnostic tests revealed lumbar osteomyelitis with retroperitoneal/prevertebral abscess. Clinical course complicated with pain, anxiety and early recurrence of psoas abscess. Imaging has shown worsening infection over course of hospitalization. Patient underwent lateral oblique approach for drainage of lumbar retroperitoneal and bilateral psoas muscle abscess on 08/14/17. He now requires custodial intravenous antibiotic therapy. Last MRI 08/28/17 of lumbar spine showing recurrent psoas abscess. Prognosis appears poor. . Code Status: Full Code Plan PLAN: CODE STATUS: Full code Legal decision maker: Patient has been deemed capacitated to participate in medical decision making by psychiatry on 08/08/17. In the event that he is incapacitated, patient has designated his friend Jennifer Kendrick to serve as his health care surrogate, and his son Gerard Hull Jr as his alternate healthcare surrogate and if the above mentioned are not able to serve, he chose his ex- Kelly Gee as his other alternate Healthcare Surrogate. Goals: Goals remain aggressive. Patient states that he is feeling good and he is hopeful that the follow-up imaging of his lumbar spine will not show recurrence abscess. SYMPTOMS: * Pain: Patient complaining of severe lower back pain. Patient had osteomyelitis and is s/p drainage of lumbar retroperitoneal and bilateral psoas muscle abscess 08/14/17.Pain continues to be well managed with Percocet 5/325, gabapentin and Flexeril. Pain medication and muscle relaxant appears adequate. * Anxiety: Patient reported to psychiatry that he feels anxious. Has lorazepam ordered q 2 hours prn. Appears to be adequate. Denies anxiety. No further recommendation at this time. * Debility: Prolonged hospitalization. Physical therapy recommending PT at Rehab. Patient ambulating from bed to bedside commode with a walker. PT and OT following. == Palliative care will continue to follow to assist with symptom management and to further clarify goals of medical treatment as the clinical course evolves. . Attestation To help prompt me to consider important information that might be impacting today's encounter and assessment, information from prior notes written by myself or my colleagues may have been "brought forward" into today's note. My signature on this note, however, is an attestation that I personally performed the exam, history, and/or decision-making noted today, and, unless otherwise indicated, the interactions with patient, family, and staff as well as the review of records all occurred today. I also attest that the listed assessment and stated plan reflect my best clinical judgment today based on the combination of historical information, prior notes, and today's exam/ interactions. When time spent is documented, it refers only to time spent today by the signer, or if indicated, combined time spent today by collaborating physician/nurse practitioner. Erasmo Vieyra Sep 20, 2017 14:54
[2017-09-20 16:00] VITALS: BP 153/90; PULSE 100; RESP 17; TEMP 98; O2SAT 93
--- NOTE | 2017-09-20 16:21 | HHI.NSPN ---
(Apolinar Argueta) History Chief Complaint: Pain to right hip going into left hip and down leg. (Apolinar Argueta) Interval History 08/30/2017: Complains of persistent low back pain with some radiation to the proximal right thigh. CT guided aspiration of recurrent psoas muscle abscess per interventional radiology. 09/06: The patient complains of pain to the back when seen this morning. He stated that it recently started and is severe enough to make him cry at times. When asked where the pain is he indicates the right psoas muscle region. He states that the pain does go down into the right thigh at times. When he lays with his knees flexed it does relieve the pain. He had no midline pain upon palpation but was tender to the right psoas. He had no deficits in his sensorimotor exam. He did have referred pain to the back with muscle strength testing. 09/13: When seen this morning the patient is awake visiting with a friend and watching TV. He continues to have some pain to the right medial low back and is minimally tender at the medial right psoas. There is no change in his sensorimotor exam. Patient states that he did get up yesterday and ambulate with Physical Therapy. 09/20: This afternoon the patient is asleep but awakens to voice. He states he is doing good but then says he does have some pain to the right hip that comes around to the left hip and goes down the left leg. Upon evaluation the patient has no sensorimotor deficits. He denies any drop foot or difficulty ambulating. (Apolinar Argueta) Exam Results 09/18/17 09/18/17 09/19/17 09/19/17 09/20/17 09/20/17 06:00 18:00 06:00 18:00 06:00 18:00 Intake Total 980 ml 900 ml 880 ml 2500 ml 800 ml Output Total 1800 ml 1200 ml 1900 ml 800 ml 1300 ml Balance -820 ml -300 ml -1020 ml 1700 ml -500 ml Intake Oral 780 ml 900 ml 780 ml 2500 ml 800 ml IV Total 200 ml 100 ml Output Urine Total 1800 ml 1200 ml 1900 ml 800 ml 1300 ml # Bowel Movements 1 1 0 1 Vital Signs Date Time Temp Pulse Resp B/P (MAP) Pulse Ox O2 Delivery O2 Flow Rate FiO2 09/20/17 12:00 97.5 92 18 123/82 (96) 96 09/20/17 08:00 97.5 81 18 123/80 (94) 96 09/20/17 05:36 20 09/20/17 00:00 98.7 82 17 126/64 (84) 96 09/19/17 20:00 97.8 102 17 105/62 (76) 94 09/19/17 16:00 97.6 100 17 113/71 (85) 96 09/19/17 12:00 97.8 89 17 112/71 (85) 96 09/19/17 08:00 97.2 88 17 138/77 (97) 97 09/19/17 00:26 97.5 84 18 117/77 (90) 95 09/18/17 20:38 98.7 97 18 136/87 (103) 96 09/18/17 16:00 98.0 92 17 144/83 (103) 95 09/18/17 12:00 97.0 92 17 127/80 (96) 96 09/18/17 08:00 97.7 87 17 175/89 (117) 94 09/18/17 00:12 97.8 89 18 132/91 (105) 96 09/17/17 20:24 98.2 96 18 127/89 (102) 97 (Apolinar Argueta) Physical Examination GENERAL: Sleep in bed but awakens to voice. Affect & readily interacts. No apparent distress. SKIN: Left anterolateral abdominal wall surgical incision healing w/o complication. HEENT: Normocephalic, atraumatic. GASTROINTESTINAL: Abdomen soft, nontender, surgical incision NTTP. MUSCULOSKELETAL: HUANG spontaneously & purposefully w/o difficulty. No evident clubbing or deformity. Lower extremities NTTP. Midline lumbar spine NTTP. NEUROLOGICAL: AAOx3. Speech clear & appropriate. Follows commands w/o difficulty. Sensation intact to light touch to the lower extremities except for chronically decrease to soles of both feet. Muscle strength is 5/5 to the lower extremities. (Apolinar Argueta) Medical Decision Making Impression and Plan Impression: 1, 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 History of chronic low back pain. 3. L4-5 moderate spinal stenosis w/grade 1 spondylolisthesis 4. Prevertebral/retroperitoneal abscess 5. Possible L5 anterior osteomyelitis w/elevated sed rate and white count Postoperative Diagnosis: (1) Osteomyelitis (Neurosurgery) Lumbar discitis, osteomyelitis (Neurosurgery) Lumbar retroperitoneal-bilateral psoas abscess (Neurosurgery) Psoas abscess, paraspinal abscesses, sepsis. (General Surgery) Patient with right hip pain radiating to left hip and down LLE. No sensorimotor deficits noted except for bottom of feet which have chronically decreased sensation. Past 24 hrs: Afebrile. Tachycardia once. No labs for today. CT needle aspiration of right psoas w/6 mL serosanguinous/pus fluid aspirated. : Lateral oblique approach for drainage of lumbar retroperitoneal and bilateral psoas muscle abscess (Neurosurgery) Retroperitoneal approach to the psoas muscle and drainage of psoas abscess and paraspinal abscess drainage. (General Surgery - Alyson Sanchez MD) ALY drains d/c'd . : CT guided aspiration of recurrent psoas muscle abscess by Interventional Radiology Plan: Discussed the plan of care with the patient who verbalised his understanding and his questions were answered. Primary management per Hospitalist. Antibiotics per Infectious Disease. Mobilise patient w/assistance. LSO brace when OOB. Physical Therapy eval & tx. Will need at least 6 wks of IV antibiotics and follow-up imaging before consideration of any surgical intervention w/instrumentation. MRI lumbar spine w/o & w/contrast on . (Apolinar Argueta) Attending Statement The exam, history, and the medical decision-making described in the above note were completed with the assistance of the mid-level provider. I reviewed and agree with the findings presented. I attest that I had a [id number] encounter with the patient on the same day, and personally performed and documented my assessment and findings in the medical record. Patient's neurologic status remained stable without significant lower extremity deficit. Persistent low back pain. Follow-up MRI pending (Guero Felipe MD) Apolinar Argueta Sep 20, 2017 16:21 Guero Felipe MD Sep 25, 2017 19:50
[2017-09-20] MEDS: ENOXAPARIN SODIUM 40 MG/0.4 ML SYRINGE SQ SCH (16:25)
[2017-09-20 20:00] VITALS: BP 141/89; PULSE 102; RESP 18; TEMP 97.4; O2SAT 96
[2017-09-21] VITALS: BP 133/82; PULSE 95; RESP 18; TEMP 97; O2SAT 96
[2017-09-21] MEDS: CALCIUM CARBONATE 500 MG CHEWABLE TAB CHEW PRN (02:49)
[2017-09-21] MEDS: CYCLOBENZAPRINE HCL 10 MG TAB PO PRN ×2 (02:49→20:16)
[2017-09-21 08:00] VITALS: BP 137/69; PULSE 89; RESP 18; TEMP 97.1; O2SAT 100
[2017-09-21] MEDS: DOCUSATE SODIUM 50 MG/SENNA 8.6 MG TAB PO SCH ×2 (08:14→20:02)
[2017-09-21] MEDS: GABAPENTIN 300 MG CAP PO SCH ×2 (08:14→20:02)
[2017-09-21] MEDS: SODIUM CHLORIDE 0.9% FLUSH 10 ML FLUSH IV FLUSH SCH ×2 (08:15→20:04)
[2017-09-21] MEDS: FAMOTIDINE 20 MG TAB PO SCH ×2 (08:15→20:02)
[2017-09-21] MEDS: METOPROLOL TARTRATE 25 MG TAB PO SCH ×2 (08:15→20:02)
[2017-09-21] MEDS: POLYETHYLENE GLYCOL 17 GM PKG PO SCH (08:15)
[2017-09-21] MEDS: LACTIC ACID (AMMONIUM LACTATE) 12% LOTION 225 GM BTL TOPICAL SCH ×4 (08:18→21:00)
[2017-09-21] MEDS: predniSONE 10 MG TAB PO SCH (08:33)
[2017-09-21] MEDS: oxyCODONE/ACETAMINOPHEN 5 MG/325 MG TAB PO PRN ×2 (08:33→20:03)
--- NOTE | 2017-09-21 10:29 | HHI.PR ---
Subjective Remarks in no acute distress. looks comfortable. no fever. no new complaints. Objective Vitals Vital Signs Date Time Temp Pulse Resp B/P (MAP) Pulse Ox O2 Delivery O2 Flow Rate FiO2 09/21/17 08:00 97.1 89 18 137/69 (91) 100 09/21/17 00:00 97.0 95 18 133/82 (99) 96 09/20/17 20:00 97.4 102 18 141/89 (106) 96 09/20/17 16:00 98.0 100 17 153/90 (111) 93 09/20/17 12:00 97.5 92 18 123/82 (96) 96 I/O 09/20/17 09/20/17 09/20/17 09/21/17 09/21/17 09/21/17 07:00 15:00 23:00 07:00 15:00 23:00 Intake Total 800 ml 840 ml 240 ml Output Total 1300 ml 950 ml 1300 ml Balance -500 ml -110 ml -1060 ml Intake Oral 800 ml 840 ml 240 ml Output Urine Total 1300 ml 950 ml 1300 ml # Bowel Movements 1 2 Imaging Last Impressions Needle Aspiration CT 08/30/17 1356 Signed Impressions: CONCLUSION: 1. Uncomplicated procedure as above. Lumbar Spine CT 08/29/17 0000 Signed Impressions: CONCLUSION: 1. There is destructive changes involving the disc space at L4-5 characteristi c for discitis. 2. There are destructive changes predominantly in the body of L5 consistent wi th osteomyelitis. There is prominent paraspinal soft tissue swelling at the L4- L5 level. 3. Mild grade 1 anterior spondylolisthesis of L4 over L5. 4. Limited visualization of the spinal canal at L4-5 due to the inflammatory c hanges. 5. Bilateral facet arthritis at multiple levels. 6. Broad-based bulging at L2-3 and L3-4. Lumbar Spine MRI 08/28/17 0000 Signed Impressions: CONCLUSION: 1. Improvement as above. Persistent fluid remains on the left. Persistent evid ence for inflammatory process remains at the L4-5 disc. 2. Less inflammatory changes in the retroperitoneum. Chest X-Ray 08/15/17 0000 Signed Impressions: Service Date/Time: Tuesday, August 15, 2017 11:34 - CONCLUSION: Mild compensated cardiomegaly Roly Reina MD FACR Lumbar Puncture Fluoroscopy 08/08/17 0000 Signed Impressions: Service Date/Time: Tuesday, August 08, 2017 15:42 - CONCLUSION: Uncomplicated fluoroscopically guided lumbar puncture. Fady Chan MD Needle Biopsy/Aspiration X-Ray 07/31/17 0000 Signed Impressions: Service Date/Time: Monday, July 31, 2017 13:29 - CONCLUSION: Uncomplicated needle biopsy of the L4/L5 disc space as above. Candelario Reina MD Abdomen/Pelvis CT 07/29/17 0000 Signed Impressions: Service Date/Time: Saturday, July 29, 2017 22:14 - CONCLUSION: 1. Significant new prevertebral soft tissue fullness and stranding centered at the L5 level. There is associated sclerosis and erosive changes in the anterior L5 vertebral body which appear unchanged from recent exams. Overall, findings are concerning for discitis and osteomyelitis. Consider repeat MRI examination for further evaluation. 2. 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 However, evaluation is significantly limited due to lack of IV contrast on this exam. This was not present on remote prior CT exam. A mycotic aneurysm cannot be entirely excluded. Contrast enhanced examination would be greatly beneficial in further evaluation. 3. Nodular appearing liver contour consistent with cirrhosis. 4. IVC filter in place. 5. Cholelithiasis. Tanner Jones MD Objective Remarks GENERAL: This is a well-nourished, well-developed patient, in no apparent distress. CARDIOVASCULAR: Regular rate and regular rhythm without murmurs, gallops, or rubs. RESPIRATORY: Clear to auscultation. Breath sounds equal bilaterally. No wheezes , rales, or rhonchi. GASTROINTESTINAL: Abdomen soft, non-tender, nondistended. Normal, active bowel sounds MUSCULOSKELETAL: Extremities without clubbing, cyanosis, or edema. NEURO: lethargic but arousable. Procedures CT-guided removal of fluid for culture as well as disc biopsy L4-5 on 07/31/17 08/14/17 lateral oblique approach for drainage of lumbar retroperitoneal and bilateral psoas muscle abscess 08/30/[id number] needle aspiration of psoas muscle abscess. . Medications and IVs Inpatient Medications Acetaminophen (Tylenol) 650 mg Q6H PRN PO FEVER/PAIN SCALE 1 TO 2 Last administered on 08/15/17at 07:38; Start 07/29/17 at 23:15 Albuterol Sulfate (Proair Hfa Inh) 2 puff Q4H PRN INH SHORTNESS OF BREATH; Start 08/14/17 at 20:30 Amlodipine Besylate (Norvasc) 10 mg DAILY PO ; Start 08/15/17 at 09:00; Stop at 14:31; Status DC Bisacodyl (Dulcolax Supp) 10 mg DAILY PRN RECTAL SEVERE CONSITIPATION/ IF NPO ; Start 07/29/17 at 23:15 Calcium Carbonate (Tums Chew) 500 mg Q2H PRN CHEW indigestion Last administered on 09/21/17 02:49; Start 08/02/17 at 19:30 Cefepime HCl 1000 mg/Sodium Chloride 100 ml @ 200 mls/hr Q12H IV Last administered on 08/01/17at 21:37; Start 07/30/17 at 09:00; Stop 08/02/17 at 06:53; Status DC Ceftriaxone Sodium 2000 mg/ Sodium Chloride 100 ml @ 200 mls/hr Q12H IV Last administered on 09/20/17at 22:00; Start 08/03/17 at 17:00 Clonidine (Catapres) 0.1 mg DAILY PO Last administered on 08/24/17at 07:58; Start 08/15/17 at 09:00; Stop 08/24/17 at 13:35; Status DC Cyclobenzaprine HCl (Flexeril) 5 mg TID PRN PO SPASM Last administered on at 02:49; Start 08/14/17 at 20:30 Dexamethasone Sodium Phosphate (Decadron Inj) 8 mg ONCE ONCE IV PUSH Last administered on 07/29/17at 20:42; Start 07/29/17 at 20:15; Stop 07/29/17 at 20:16 ; Status DC Dextrose/Sodium Chloride 1,000 ml @ 100 mls/hr Q10H IV Last administered on at 23:14; Start 08/25/17 at 11:45; Stop 08/26/17 at 16:28; Status DC Enalaprilat (Vasotec Inj) 2.5 mg Q6H PRN IV PUSH SBP > 165 Last administered on 09/09/17at 00:39; Start 08/06/17 at 11:00 Enoxaparin Sodium (Lovenox Inj) 40 mg Q24H SQ Last administered on 09/20/17at 16 :25; Start 09/02/17 at 16:00 Famotidine (Pepcid) 20 mg BID PO Last administered on 09/21/17at 08:15; Start at 21:00 Gabapentin (Neurontin) 600 mg BID PO Last administered on 09/21/17at 08:14; Start 09/06/17 at 21:00 Hydralazine HCl (Apresoline Inj) 10 mg Q4H PRN IV PUSH SBP > 165; Start at 10:00; Stop 08/06/17 at 11:01; Status DC Hydromorphone HCl (Dilaudid Pf Inj) 0.5 mg Q3H PRN IV PUSH Pain 3-5; if unable to take PO; Start 08/14/17 at 19:30; Stop 08/22/17 at 15:54; Status DC Lactic Acid (Lac-Hydrin 12% Lotion) 1 applic BID TOPICAL Last administered on at 20:37; Start 08/17/17 at 11:00 Lactulose (Lactulose Liq) 30 ml DAILY PRN PO SEVERE CONSITIPATION/ IF PO Last administered on 08/19/17at 13:55; Start 07/29/17 at 23:15 Lorazepam (Ativan Inj) 1 mg Q2H PRN IV PUSH AGITATION/WITHDRAWAL Last administered on 08/14/17at 19:10; Start 07/29/17 at 23:15; Stop 08/24/17 at 13:35 ; Status DC Magnesium Hydroxide (Milk Of Magnesia Liq) 30 ml Q12H PRN PO Mild constipation ; Start 07/29/17 at 23:15 Magnesium Citrate (Citroma Liq) 300 ml ONCE ONCE PO Last administered on at 15:15; Start 08/21/17 at 13:15; Stop 08/21/17 at 13:16; Status DC Metoprolol Tartrate (Lopressor) 12.5 mg Q12HR PO Last administered on at 08:15; Start 09/16/17 at 10:15 Miscellaneous (Pill Splitter) 1 ea UNSCH PRN OTHER SEE LABEL COMMENTS Last administered on 09/18/17at 17:40; Start 09/16/17 at 10:30 Miscellaneous Information ([facility] Nursing Information) ALL NURSING DEPARTME... UNSCH PRN .XX SEE LABEL COMMENTS; Start 08/14/17 at 20:00; Stop 08/15/17 at 19: 59; Status DC Morphine Sulfate (Morphine Inj) 2 mg Q3H PRN IV PUSH Pain 6-10 Last administered on 08/01/17at 01:54; Start 07/30/17 at 20:45; Stop 08/01/17 at 08:56; Status DC Naloxone HCl (Narcan Inj) 0.4 mg UNSCH PRN IV PUSH SEE LABEL COMMENTS; Start at 19:30 Ondansetron HCl (Zofran Inj) 4 mg Q6H PRN IVP NAUSEA OR VOMITING; Start at 23:15 Oxycodone HCl (Roxicodone) 5 mg ONCE ONCE PO Last administered on 07/31/17at 22: 40; Start 07/31/17 at 22:15; Stop 07/31/17 at 22:18; Status DC Oxycodone/ Acetaminophen (Percocet 5-325 Mg) 1 tab Q4HR PRN PO PAIN 4-10 Last administered on 09/21/17at 08:33; Start 08/09/17 at 10:00 Oxycodone/ Acetaminophen (Percocet 10-325 Mg) 1 tab Q4H PRN PO PAIN SCALE 4 TO 10 Last administered on 08/06/17at 05:36; Start 08/01/17 at 09:00; Stop 08/09/17 at 09:39; Status DC Pharmacy Profile Note 0 ml @ 0 mls/hr UNSCH OTHER ; Start 07/29/17 at 23:15; Stop 08/06/17 at 14:40; Status DC Polyethylene Glycol (Miralax) 17 gm DAILY PO Last administered on 09/13/17at 09: 15; Start 08/18/17 at 09:00 Prednisone (Deltasone) 10 mg DAILY PO Last administered on 09/21/17at 08:33; Start 08/21/17 at 09:00 Senna/Docusate Sodium (Emilie-Colace) 1 tab BID PO Last administered on at 08:14; Start 07/30/17 at 09:00 Sennosides (Senokot) 17.2 mg Q12H PRN PO Moderate constipation; Start 07/29/17 at 23:15 Sodium Chloride 250 ml @ 15 mls/hr ONCE ONCE IV Last administered on at 10:17; Start 08/28/17 at 06:15; Stop 08/28/17 at 22:54; Status DC Sodium Chloride (NS Flush) 2 ml BID IV FLUSH Last administered on 09/21/17at 08: 15; Start 07/30/17 at 09:00 Vancomycin HCl 1000 mg/Sodium Chloride 250 ml @ 250 mls/hr ONCE ONCE IV Last administered on 07/30/17at 12:08; Start 07/30/17 at 12:00; Stop 07/30/17 at 12:59 ; Status DC Vancomycin HCl 1500 mg/Sodium Chloride 515 ml @ 257.5 mls/ hr ONCE ONCE IV Last administered on 07/31/17at 18:19; Start 07/31/17 at 18:00; Stop 07/31/17 at 19: 59; Status DC Vancomycin HCl 1750 mg/Sodium Chloride 517.5 ml @ 257.5 mls/ hr ONCE ONCE IV Last administered on 08/06/17at 14:05; Start 08/06/17 at 13:00; Stop 08/06/17 at 14: 40; Status DC Vancomycin HCl 2000 mg/Sodium Chloride 520 ml @ 250 mls/hr ONCE ONCE IV Last administered on 08/02/17at 14:50; Start 08/02/17 at 14:00; Stop 08/02/17 at 16:04; Status DC Vancomycin/Sodium Chloride 200 ml @ 200 mls/hr ONCE ONCE IV Last administered on 07/29/17at 23:55; Start 07/30/17 at 00:00; Stop 07/30/17 at 00:59 ; Status DC Zolpidem Tartrate (Ambien) 5 mg ONCE ONCE PO Last administered on 08/13/17at 01 :45; Start 08/13/17 at 01:45; Stop 08/13/17 at 01:46; Status DC A/P Problem List: (1) Osteomyelitis ICD Code: M86.9 - Osteomyelitis, unspecified Status: Acute (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 Osteomyelitis of the L5 vertebra/bilateral psoas muscle abscess/ bacteremia Status post CT-guided removal of fluid for culture as well as disc biopsy on 07/31. Appreciate neurosurgery, vascular surgery, infectious disease recommendations. Status post drainage of abscess on 08/14/17. Wound culture is negative. Mycobacterial and fungal cultures are negative. Bacteremia with Strep Anginosis. - 08/28 as per neurosurgery recommendations the patient will need at least 6 weeks(around the week of 09/18) of IV antibiotics then follow-up imaging study before consideration for procedure. -continue IV Rocephin- -CT lumbar spine next Sunday - per ID. 2. Encephalopathy Likely toxic secondary to drug abuse. S/P lumbar puncture. Evaluated by psychiatry, patient is capable of making decisions. - resolved. - Avoid overly sedating medications. 3. Cocaine abuse Urine toxicology positive for cocaine. There was concern that the patient may have used cocaine while in the hospital as his urine drug screen was positive 8 days after admission. - cessation instruction. - Visitors allowed again. 4. Right iliac artery aneurysm Patient noted to have a 2.9 cm aneurysm of the right internal iliac artery, possibly mycotic aneurysm. This was an incidental finding. He denies IV drug abuse. Appreciate vascular surgery recommendations. - No surgery planned at this time. 5. Chronic kidney disease stage II with acute kidney injury. Creatinine seems stable. - monitor and avoid nephrotoxins. 6. Hypoglycemia- resolved. - ADAT. Continue Ensure. 7. Anemia Seems chronic. Anemia likely multifactorial. Follow-up stool blood Hemoccult. -Hemoglobin stable. 8. Hypertension - continue amlodipine and metoprolol. 9. Sarcoidosis on chronic prednisone. 10. 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 Outpatient follow-up DVT prophylaxis: SCDs and Lovenox subcutaneously. Discharge Planning when cleared by ID- Mainor Grace MD Sep 21, 2017 10:29
[2017-09-21] MEDS: cefTRIAXone INJ 2,000 MG in SODIUM CHLORIDE 0.9% INJ 100 ML IV SCH ×2 (10:31→20:12)
[2017-09-21] MEDS: ENOXAPARIN SODIUM 40 MG/0.4 ML SYRINGE SQ SCH (15:48)
[2017-09-21 16:00] VITALS: BP 124/88; PULSE 103; RESP 20; TEMP 98; O2SAT 98
[2017-09-21 20:00] VITALS: BP 138/83; PULSE 107; RESP 20; TEMP 97.8; O2SAT 94
[2017-09-22] VITALS: BP 115/82; PULSE 89; RESP 20; TEMP 97.1; O2SAT 96
[2017-09-22] MEDS: oxyCODONE/ACETAMINOPHEN 5 MG/325 MG TAB PO PRN ×4 (00:23→21:48)
[2017-09-22] MEDS: CYCLOBENZAPRINE HCL 10 MG TAB PO PRN (01:38)
[2017-09-22 06:03] LABS: ALKALINE PHOSPHATASE 176 U/L (45-117); ALT (GPT) 28 U/L (12-78); TOTAL BILIRUBIN ADULT 0.3 MG/DL (0.2-1.0); TOTAL PROTEIN 8.4 GM/DL (6.4-8.2)
[2017-09-22 06:06] LABS: ALBUMIN 2.5 GM/DL (3.4-5.0); AST (GOT) 50 U/L (15-37); BICARBONATE 23.3 MEQ/L (21.0-32.0); BLOOD UREA NITROGEN 36 MG/DL (7-18); CALCIUM 8.3 MG/DL (8.5-10.1); CHLORIDE 108 MEQ/L (98-107); CREATININE 1.71 MG/DL (0.60-1.30); GLOMERULAR FILTRATION RATE 51 ML/MIN (>89); GLUCOSE,RANDOM 81 MG/DL (74-106); SODIUM (NA) 139 MEQ/L (136-145)
[2017-09-22 06:41] LABS: WESTERGREN SEDIMENTATION RATE 35 mm/hr (0-20)
[2017-09-22 07:27] LABS: AUTOMATED NEUTROPHIL # 3.1 TH/MM3 (1.8-7.7); BASOPHIL % 0.9 % (0.0-2.0); EOSINOPHIL # 0.4 TH/MM3 (0-0.4); EOSINOPHIL % 8.1 % (0.0-4.0); HEMATOCRIT 29.3 % (39.0-51.0); HEMOGLOBIN 9.4 GM/DL (13.0-17.0); LYMPH % 17.9 % (9.0-44.0); LYMPHOCYTE # 0.9 TH/MM3 (1.0-4.8); MEAN CELL VOLUME 91.8 FL (80.0-100.0); MEAN CORPUSCULAR HEMOGLOBIN 29.4 PG (27.0-34.0); MEAN PLATELET VOLUME 8.1 FL (7.0-11.0); MONO % 11.9 % (0.0-8.0); MONOCYTE # 0.6 TH/MM3 (0-0.9); NEUT % 61.2 % (16.0-70.0); PLATELET COUNT 130 TH/MM3 (150-450); RED BLOOD COUNT 3.19 MIL/MM3 (4.50-5.90); RED CELL DISTRIBUTION WIDTH 17.9 % (11.6-17.2)
[2017-09-22] MEDS: predniSONE 10 MG TAB PO SCH (07:29)
[2017-09-22] MEDS: METOPROLOL TARTRATE 25 MG TAB PO SCH ×2 (07:30→21:48)
[2017-09-22] MEDS: GABAPENTIN 300 MG CAP PO SCH ×2 (07:30→21:48)
[2017-09-22] MEDS: SODIUM CHLORIDE 0.9% FLUSH 10 ML FLUSH IV FLUSH SCH ×2 (07:30→21:49)
[2017-09-22] MEDS: DOCUSATE SODIUM 50 MG/SENNA 8.6 MG TAB PO SCH ×2 (07:30→21:47)
[2017-09-22] MEDS: FAMOTIDINE 20 MG TAB PO SCH ×2 (07:31→21:48)
[2017-09-22] MEDS: LACTIC ACID (AMMONIUM LACTATE) 12% LOTION 225 GM BTL TOPICAL SCH ×4 (07:31→21:50)
[2017-09-22] MEDS: POLYETHYLENE GLYCOL 17 GM PKG PO SCH (07:31)
[2017-09-22 08:00] VITALS: BP 135/72; PULSE 81; RESP 18; TEMP 97.3; O2SAT 93
--- NOTE | 2017-09-22 10:11 | HHI.PR ---
Subjective Remarks in no acute distress. looks comfortable. pain is controlled. no fever. Objective Vitals Vital Signs Date Time Temp Pulse Resp B/P (MAP) Pulse Ox O2 Delivery O2 Flow Rate FiO2 09/22/17 00:00 97.1 89 20 115/82 (93) 96 09/21/17 20:00 97.8 107 20 138/83 (101) 94 09/21/17 16:00 98.0 103 20 124/88 (100) 98 I/O 09/21/17 09/21/17 09/21/17 09/22/17 09/22/17 09/22/17 07:00 15:00 23:00 07:00 15:00 23:00 Intake Total 240 ml 1060 ml 420 ml Output Total 1300 ml 401 ml 1300 ml Balance -1060 ml 659 ml -880 ml Intake Oral 240 ml 960 ml 420 ml IV Total 100 ml Output Urine Total 1300 ml 400 ml 1300 ml Stool Total 1 ml # Voids 4 # Bowel Movements 2 2 1 Result Diagram: 09/22/17 0352 09/22/17 0352 Imaging Last Impressions Needle Aspiration CT 08/30/17 1356 Signed Impressions: CONCLUSION: 1. Uncomplicated procedure as above. Lumbar Spine CT 08/29/17 0000 Signed Impressions: CONCLUSION: 1. There is destructive changes involving the disc space at L4-5 characteristi c for discitis. 2. There are destructive changes predominantly in the body of L5 consistent wi th osteomyelitis. There is prominent paraspinal soft tissue swelling at the L4- L5 level. 3. Mild grade 1 anterior spondylolisthesis of L4 over L5. 4. Limited visualization of the spinal canal at L4-5 due to the inflammatory c hanges. 5. Bilateral facet arthritis at multiple levels. 6. Broad-based bulging at L2-3 and L3-4. Lumbar Spine MRI 08/28/17 0000 Signed Impressions: CONCLUSION: 1. Improvement as above. Persistent fluid remains on the left. Persistent evid ence for inflammatory process remains at the L4-5 disc. 2. Less inflammatory changes in the retroperitoneum. Chest X-Ray 08/15/17 0000 Signed Impressions: Service Date/Time: Tuesday, August 15, 2017 11:34 - CONCLUSION: Mild compensated cardiomegaly Roly Reina MD FACR Lumbar Puncture Fluoroscopy 08/08/17 0000 Signed Impressions: Service Date/Time: Tuesday, August 08, 2017 15:42 - CONCLUSION: Uncomplicated fluoroscopically guided lumbar puncture. Fady Chan MD Needle Biopsy/Aspiration X-Ray 07/31/17 0000 Signed Impressions: Service Date/Time: Monday, July 31, 2017 13:29 - CONCLUSION: Uncomplicated needle biopsy of the L4/L5 disc space as above. Candelario Reina MD Abdomen/Pelvis CT 07/29/17 0000 Signed Impressions: Service Date/Time: Saturday, July 29, 2017 22:14 - CONCLUSION: 1. Significant new prevertebral soft tissue fullness and stranding centered at the L5 level. There is associated sclerosis and erosive changes in the anterior L5 vertebral body which appear unchanged from recent exams. Overall, findings are concerning for discitis and osteomyelitis. Consider repeat MRI examination for further evaluation. 2. 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 However, evaluation is significantly limited due to lack of IV contrast on this exam. This was not present on remote prior CT exam. A mycotic aneurysm cannot be entirely excluded. Contrast enhanced examination would be greatly beneficial in further evaluation. 3. Nodular appearing liver contour consistent with cirrhosis. 4. IVC filter in place. 5. Cholelithiasis. Tanner oJnes MD Objective Remarks GENERAL: This is a well-nourished, well-developed patient, in no apparent distress. CARDIOVASCULAR: Regular rate and regular rhythm without murmurs, gallops, or rubs. RESPIRATORY: Clear to auscultation. Breath sounds equal bilaterally. No wheezes , rales, or rhonchi. GASTROINTESTINAL: Abdomen soft, non-tender, nondistended. Normal, active bowel sounds MUSCULOSKELETAL: Extremities without clubbing, cyanosis, or edema. NEURO: lethargic but arousable. Procedures CT-guided removal of fluid for culture as well as disc biopsy L4-5 on 07/31/17 08/14/17 lateral oblique approach for drainage of lumbar retroperitoneal and bilateral psoas muscle abscess [id number] needle aspiration of psoas muscle abscess. . Medications and IVs Inpatient Medications Acetaminophen (Tylenol) 650 mg Q6H PRN PO FEVER/PAIN SCALE 1 TO 2 Last administered on 08/15/17at 07:38; Start 07/29/17 at 23:15 Albuterol Sulfate (Proair Hfa Inh) 2 puff Q4H PRN INH SHORTNESS OF BREATH; Start 08/14/17 at 20:30 Amlodipine Besylate (Norvasc) 10 mg DAILY PO ; Start 08/15/17 at 09:00; Stop at 14:31; Status DC Bisacodyl (Dulcolax Supp) 10 mg DAILY PRN RECTAL SEVERE CONSITIPATION/ IF NPO ; Start 07/29/17 at 23:15 Calcium Carbonate (Tums Chew) 500 mg Q2H PRN CHEW indigestion Last administered on 09/21/17at 02:49; Start 08/02/17 at 19:30 Cefepime HCl 1000 mg/Sodium Chloride 100 ml @ 200 mls/hr Q12H IV Last administered on 08/01/17at 21:37; Start 07/30/17 at 09:00; Stop 08/02/17 at 06:53; Status DC Ceftriaxone Sodium 2000 mg/ Sodium Chloride 100 ml @ 200 mls/hr Q12H IV Last administered on 09/21/17at 20:12; Start 08/03/17 at 17:00 Clonidine (Catapres) 0.1 mg DAILY PO Last administered on 08/24/17at 07:58; Start 08/15/17 at 09:00; Stop 08/24/17 at 13:35; Status DC Cyclobenzaprine HCl (Flexeril) 5 mg TID PRN PO SPASM Last administered on at 01:38; Start 08/14/17 at 20:30 Dexamethasone Sodium Phosphate (Decadron Inj) 8 mg ONCE ONCE IV PUSH Last administered on 07/29/17at 20:42; Start 07/29/17 at 20:15; Stop 07/29/17 at 20:16 ; Status DC Dextrose/Sodium Chloride 1,000 ml @ 100 mls/hr Q10H IV Last administered on at 23:14; Start 08/25/17 at 11:45; Stop 08/26/17 at 16:28; Status DC Enalaprilat (Vasotec Inj) 2.5 mg Q6H PRN IV PUSH SBP > 165 Last administered on 09/09/17at 00:39; Start 08/06/17 at 11:00 Enoxaparin Sodium (Lovenox Inj) 40 mg Q24H SQ Last administered on 09/21/17at 15 :48; Start 09/02/17 at 16:00 Famotidine (Pepcid) 20 mg BID PO Last administered on 09/22/17at 07:31; Start at 21:00 Gabapentin (Neurontin) 600 mg BID PO Last administered on 09/22/17at 07:30; Start 09/06/17 at 21:00 Hydralazine HCl (Apresoline Inj) 10 mg Q4H PRN IV PUSH SBP > 165; Start at 10:00; Stop 08/06/17 at 11:01; Status DC Hydromorphone HCl (Dilaudid Pf Inj) 0.5 mg Q3H PRN IV PUSH Pain 3-5; if unable to take PO; Start 08/14/17 at 19:30; Stop 08/22/17 at 15:54; Status DC Lactic Acid (Lac-Hydrin 12% Lotion) 1 applic BID TOPICAL Last administered on at 20:37; Start 08/17/17 at 11:00 Lactulose (Lactulose Liq) 30 ml DAILY PRN PO SEVERE CONSITIPATION/ IF PO Last administered on 08/19/17at 13:55; Start 07/29/17 at 23:15 Lorazepam (Ativan Inj) 1 mg Q2H PRN IV PUSH AGITATION/WITHDRAWAL Last administered on 08/14/17at 19:10; Start 07/29/17 at 23:15; Stop 08/24/17 at 13:35 ; Status DC Magnesium Hydroxide (Milk Of Magnesia Liq) 30 ml Q12H PRN PO Mild constipation ; Start 07/29/17 at 23:15 Magnesium Citrate (Citroma Liq) 300 ml ONCE ONCE PO Last administered on at 15:15; Start 08/21/17 at 13:15; Stop 08/21/17 at 13:16; Status DC Metoprolol Tartrate (Lopressor) 12.5 mg Q12HR PO Last administered on at 07:30; Start 09/16/17 at 10:15 Miscellaneous (Pill Splitter) 1 ea UNSCH PRN OTHER SEE LABEL COMMENTS Last administered on 09/18/17at 17:40; Start 09/16/17 at 10:30 Miscellaneous Information ([facility] [place] Nursing Information) ALL NURSING DEPARTME... UNSCH PRN .XX SEE LABEL COMMENTS; Start 08/14/17 at 20:00; Stop 08/15/17 at 19: 59; Status DC Morphine Sulfate (Morphine Inj) 2 mg Q3H PRN IV PUSH Pain 6-10 Last administered on 08/01/17at 01:54; Start 07/30/17 at 20:45; Stop 08/01/17 at 08:56; Status DC Naloxone HCl (Narcan Inj) 0.4 mg UNSCH PRN IV PUSH SEE LABEL COMMENTS; Start at 19:30 Ondansetron HCl (Zofran Inj) 4 mg Q6H PRN IVP NAUSEA OR VOMITING; Start at 23:15 Oxycodone HCl (Roxicodone) 5 mg ONCE ONCE PO Last administered on 07/31/17at 22: 40; Start 07/31/17 at 22:15; Stop 07/31/17 at 22:18; Status DC Oxycodone/ Acetaminophen (Percocet 5-325 Mg) 1 tab Q4HR PRN PO PAIN 4-10 Last administered on 09/22/17at 07:31; Start 08/09/17 at 10:00 Oxycodone/ Acetaminophen (Percocet 10-325 Mg) 1 tab Q4H PRN PO PAIN SCALE 4 TO 10 Last administered on 08/06/17at 05:36; Start 08/01/17 at 09:00; Stop 08/09/17 at 09:39; Status DC Pharmacy Profile Note 0 ml @ 0 mls/hr UNSCH OTHER ; Start 07/29/17 at 23:15; Stop 08/06/17 at 14:40; Status DC Polyethylene Glycol (Miralax) 17 gm DAILY PO Last administered on 09/13/17at 09: 15; Start 08/18/17 at 09:00 Prednisone (Deltasone) 10 mg DAILY PO Last administered on 09/22/17at 07:29; Start 08/21/17 at 09:00 Senna/Docusate Sodium (Emilie-Colace) 1 tab BID PO Last administered on at 07:30; Start 07/30/17 at 09:00 Sennosides (Senokot) 17.2 mg Q12H PRN PO Moderate constipation; Start 07/29/17 at 23:15 Sodium Chloride 250 ml @ 15 mls/hr ONCE ONCE IV Last administered on at 10:17; Start 08/28/17 at 06:15; Stop 08/28/17 at 22:54; Status DC Sodium Chloride (NS Flush) 2 ml BID IV FLUSH Last administered on 09/22/17at 07: 30; Start 07/30/17 at 09:00 Vancomycin HCl 1000 mg/Sodium Chloride 250 ml @ 250 mls/hr ONCE ONCE IV Last administered on 07/30/17at 12:08; Start 07/30/17 at 12:00; Stop 07/30/17 at 12:59 ; Status DC Vancomycin HCl 1500 mg/Sodium Chloride 515 ml @ 257.5 mls/ hr ONCE ONCE IV Last administered on 07/31/17at 18:19; Start 07/31/17 at 18:00; Stop 07/31/17 at 19: 59; Status DC Vancomycin HCl 1750 mg/Sodium Chloride 517.5 ml @ 257.5 mls/ hr ONCE ONCE IV Last administered on 08/06/17at 14:05; Start 08/06/17 at 13:00; Stop 08/06/17 at 14: 40; Status DC Vancomycin HCl 2000 mg/Sodium Chloride 520 ml @ 250 mls/hr ONCE ONCE IV Last administered on 08/02/17at 14:50; Start 08/02/17 at 14:00; Stop 08/02/17 at 16:04; Status DC Vancomycin/Sodium Chloride 200 ml @ 200 mls/hr ONCE ONCE IV Last administered on 07/29/17at 23:55; Start 07/30/17 at 00:00; Stop 07/30/17 at 00:59 ; Status DC Zolpidem Tartrate (Ambien) 5 mg ONCE ONCE PO Last administered on 08/13/17at 01 :45; Start 08/13/17 at 01:45; Stop 08/13/17 at 01:46; Status DC A/P Problem List: (1) Osteomyelitis ICD Code: M86.9 - Osteomyelitis, unspecified Status: Acute (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 Osteomyelitis of the L5 vertebra/bilateral psoas muscle abscess/ bacteremia Status post CT-guided removal of fluid for culture as well as disc biopsy on 07/31. Appreciate neurosurgery, vascular surgery, infectious disease recommendations. Status post drainage of abscess on 08/14/17. Wound culture is negative. Mycobacterial and fungal cultures are negative. Bacteremia with Strep Anginosis. - 08/28 as per neurosurgery recommendations the patient will need at least 6 weeks(around the week of 09/18) of IV antibiotics then follow-up imaging study before consideration for procedure. -continue IV Rocephin- -CT lumbar spine on Sunday - per ID. 2. Encephalopathy Likely toxic secondary to drug abuse. S/P lumbar puncture. Evaluated by psychiatry, patient is capable of making decisions. - resolved. - Avoid overly sedating medications. 3. Cocaine abuse Urine toxicology positive for cocaine. There was concern that the patient may have used cocaine while in the hospital as his urine drug screen was positive 8 days after admission. - cessation instruction. - Visitors allowed again. 4. Right iliac artery aneurysm Patient noted to have a 2.9 cm aneurysm of the right internal iliac artery, possibly mycotic aneurysm. This was an incidental finding. He denies IV drug abuse. Appreciate vascular surgery recommendations. - No surgery planned at this time. 5. Chronic kidney disease stage II with acute kidney injury. Creatinine seems fairly stable. - monitor and avoid nephrotoxins. 6. Hypoglycemia- resolved. - ADAT. Continue Ensure. 7. Anemia Seems chronic. Anemia likely multifactorial. Follow-up stool blood Hemoccult. -Hemoglobin stable. 8. Hypertension - continue amlodipine and metoprolol. 9. Sarcoidosis on chronic prednisone. 10. 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 Outpatient follow-up DVT prophylaxis: SCDs and Lovenox subcutaneously. Discharge Planning when cleared by ID- Mainor Grace MD Sep 22, 2017 10:11
[2017-09-22] MEDS: cefTRIAXone INJ 2,000 MG in SODIUM CHLORIDE 0.9% INJ 100 ML IV SCH ×2 (10:12→21:55)
[2017-09-22 11:10] VITALS: BP 136/79; PULSE 83; RESP 19; TEMP 97.1; O2SAT 97
[2017-09-22] MEDS: ENOXAPARIN SODIUM 40 MG/0.4 ML SYRINGE SQ SCH (16:35)
[2017-09-22 17:12] VITALS: BP 150/88; PULSE 91; RESP 16; TEMP 98.1; O2SAT 96
[2017-09-22 19:05] VITALS: BP 120/86; PULSE 95; RESP 12; TEMP 98.4; O2SAT 97
[2017-09-22] MEDS ORDERED: SODIUM POLYSTYRENE SULFONATE SUSP 15 GM/60 ML CUP PO ONE (19:15)
[2017-09-23 00:13] LABS: BICARBONATE 22.2 MEQ/L (21.0-32.0); CALCIUM 8.5 MG/DL (8.5-10.1); CREATININE 1.64 MG/DL (0.60-1.30)
[2017-09-23 00:50] VITALS: BP 109/75; PULSE 79; TEMP 97.4; O2SAT 96
[2017-09-23 08:00] VITALS: BP 163/102; PULSE 92; RESP 17; TEMP 97.3; O2SAT 97
[2017-09-23] MEDS: SODIUM CHLORIDE 0.9% FLUSH 10 ML FLUSH IV FLUSH SCH ×2 (08:06→21:33)
[2017-09-23] MEDS: METOPROLOL TARTRATE 25 MG TAB PO SCH ×2 (08:07→21:33)
[2017-09-23] MEDS: predniSONE 10 MG TAB PO SCH (08:07)
[2017-09-23] MEDS: FAMOTIDINE 20 MG TAB PO SCH ×2 (08:07→21:33)
[2017-09-23] MEDS: GABAPENTIN 300 MG CAP PO SCH ×2 (08:07→21:32)
[2017-09-23] MEDS: DOCUSATE SODIUM 50 MG/SENNA 8.6 MG TAB PO SCH ×2 (08:08→21:32)
[2017-09-23] MEDS: POLYETHYLENE GLYCOL 17 GM PKG PO SCH (08:08)
[2017-09-23] MEDS: LACTIC ACID (AMMONIUM LACTATE) 12% LOTION 225 GM BTL TOPICAL SCH ×4 (08:09→21:00)
[2017-09-23] MEDS: oxyCODONE/ACETAMINOPHEN 5 MG/325 MG TAB PO PRN ×4 (08:09→21:34)
[2017-09-23] MEDS ORDERED: GADODIAMIDE PF 287 MG/ML 20 ML VIAL (for RAD MRI) IVCONTRAST ONE (09:30)
[2017-09-23] MEDS: cefTRIAXone INJ 2,000 MG in SODIUM CHLORIDE 0.9% INJ 100 ML IV SCH ×2 (09:51→21:34)
[2017-09-23] MEDS: CYCLOBENZAPRINE HCL 10 MG TAB PO PRN (09:52)
--- NOTE | 2017-09-23 10:04 | RADRPT ---
EXAM DATE: 09/23/2017 9:40 AM EDT AGE/SEX: 57 years / Male INDICATIONS: Osteomyelitis. CLINICAL DATA: This is the patient's subsequent encounter. Patient reports that signs and symptoms h ave been present for 2 months and indicates a pain score of 4/10. MEDICAL/SURGICAL HISTORY: Rheumatoid arthritis. Renal insufficiency, chronic. Hypertension. . Bilateral wrist. Left shoulder. Lumbar I and D. COMPARISON: [facility] [place], MRI LUMBAR SPINE W & W/O CONTRAST, 08/28/2017. . TECHNIQUE: Multiplanar, multisequence MRI examination of the lumbar spine was performed without and with 20 ml Omniscan (gadodiamide) contrast as a single exam dose. FINDINGS: The most caudal-appearing lumbar vertebra is numbered as L5. Vertebra: Homogeneous signal, with the exception of some prominent edema along the endplates at L4-5 as seen on previous study. Normal alignment. Conus: Normal level and configuration. Post Contrast: No abnormal areas of contrast enhancement are seen. T12-L1: The thecal sac has a normal diameter. No evidence of disc bulge or protrusion. The neural foramina are patent bilaterally. L1-L2: The thecal sac has a normal diameter. No evidence of disc bulge or protrusion. The neural foramina are patent bilaterally. Mild facet arthropathy. L2-L3: The thecal sac has a normal diameter. No evidence of disc bulge or protrusion. The neural foramina are patent bilaterally. Moderate facet arthropathy. L3-L4: The thecal sac has a normal diameter. No evidence of disc bulge or protrusion. The neural foramina are patent bilaterally. Moderate facet arthropathy. L4-L5: Fluid remains within the disc space at L4-5. There is fluid/soft tissue prominence of the an terior epidural space which does extend superiorly underneath the posterior longitudinal ligament. Th is does create mass effect upon the anterior thecal sac and in conjunction with moderate hypertrophic facets does cause some mild canal stenosis. There is severe bilateral neural foraminal narrowing. Ex tensive inflammatory changes along the L4 and L5 vertebral bodies and both facets. L5-S1: Mild broad-based disc bulge abuts the ventral thecal sac. No canal stenosis. Moderate facet ar thropathy. CONCLUSION: 1. Fluid in the disc space with extensive inflammatory changes at L4-5. Fluid/soft tissue prominence in the anterior epidural space is more prominent and does extend superiorly underneath the posterior longitudinal ligament causing mild canal stenosis. Severe bilateral neural foraminal narrowing at th is level. 2. Diffuse facet arthropathy. Electronically signed by: Constantine Jameson MD 09/23/2017 10:03 AM EDT
--- NOTE | 2017-09-23 11:21 | HHI.PR ---
Subjective Remarks in no distress. back pain is mild. no fever. no new complaints. Objective Vitals Vital Signs Date Time Temp Pulse Resp B/P (MAP) Pulse Ox O2 Delivery O2 Flow Rate FiO2 09/23/17 08:00 97.3 92 17 163/102 (122) 97 09/23/17 00:50 97.4 79 109/75 (86) 96 09/22/17 19:05 98.4 95 12 120/86 (97) 97 09/22/17 17:12 98.1 91 16 150/88 (108) 96 I/O 09/22/17 09/22/17 09/22/17 09/23/17 09/23/17 09/23/17 07:00 15:00 23:00 07:00 15:00 23:00 Intake Total 420 ml 875 ml Output Total 1300 ml 2800 ml 1300 ml Balance -880 ml -1925 ml -1300 ml Intake Oral 420 ml 775 ml IV Total 100 ml Output Urine Total 1300 ml 2800 ml 1300 ml # Bowel Movements 1 Result Diagram: 09/22/17 0352 09/22/17 2316 Imaging Last Impressions Lumbar Spine MRI 09/23/17 0000 Signed Impressions: CONCLUSION: 1. Fluid in the disc space with extensive inflammatory changes at L4-5. Fluid/ soft tissue prominence in the anterior epidural space is more prominent and duong s extend superiorly underneath the posterior longitudinal ligament causing mild canal stenosis. Severe bilateral neural foraminal narrowing at this level. 2. Diffuse facet arthropathy. Needle Aspiration CT 08/30/17 1356 Signed Impressions: CONCLUSION: 1. Uncomplicated procedure as above. Lumbar Spine CT 08/29/17 0000 Signed Impressions: CONCLUSION: 1. There is destructive changes involving the disc space at L4-5 characteristi c for discitis. 2. There are destructive changes predominantly in the body of L5 consistent wi th osteomyelitis. There is prominent paraspinal soft tissue swelling at the L4- L5 level. 3. Mild grade 1 anterior spondylolisthesis of L4 over L5. 4. Limited visualization of the spinal canal at L4-5 due to the inflammatory c hanges. 5. Bilateral facet arthritis at multiple levels. 6. Broad-based bulging at L2-3 and L3-4. Chest X-Ray 08/15/17 0000 Signed Impressions: Service Date/Time: Tuesday, August 15, 2017 11:34 - CONCLUSION: Mild compensated cardiomegaly Roly Reina MD FACR Lumbar Puncture Fluoroscopy 08/08/17 0000 Signed Impressions: Service Date/Time: Tuesday, August 08, 2017 15:42 - CONCLUSION: Uncomplicated fluoroscopically guided lumbar puncture. Fady Chan MD Needle Biopsy/Aspiration X-Ray 07/31/17 0000 Signed Impressions: Service Date/Time: Monday, July 31, 2017 13:29 - CONCLUSION: Uncomplicated needle biopsy of the L4/L5 disc space as above. Candelario Reina MD Abdomen/Pelvis CT 07/29/17 0000 Signed Impressions: Service Date/Time: Saturday, July 29, 2017 22:14 - CONCLUSION: 1. Significant new prevertebral soft tissue fullness and stranding centered at the L5 level. There is associated sclerosis and erosive changes in the anterior L5 vertebral body which appear unchanged from recent exams. Overall, findings are concerning for discitis and osteomyelitis. Consider repeat MRI examination for further evaluation. 2. 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 However, evaluation is significantly limited due to lack of IV contrast on this exam. This was not present on remote prior CT exam. A mycotic aneurysm cannot be entirely excluded. Contrast enhanced examination would be greatly beneficial in further evaluation. 3. Nodular appearing liver contour consistent with cirrhosis. 4. IVC filter in place. 5. Cholelithiasis. Tanner Jones MD Objective Remarks GENERAL: This is a well-nourished, well-developed patient, in no apparent distress. CARDIOVASCULAR: Regular rate and regular rhythm without murmurs, gallops, or rubs. RESPIRATORY: Clear to auscultation. Breath sounds equal bilaterally. No wheezes , rales, or rhonchi. GASTROINTESTINAL: Abdomen soft, non-tender, nondistended. Normal, active bowel sounds MUSCULOSKELETAL: Extremities without clubbing, cyanosis, or edema. NEURO: lethargic but arousable. Procedures CT-guided removal of fluid for culture as well as disc biopsy L4-5 on 07/31/17 08/14/17 lateral oblique approach for drainage of lumbar retroperitoneal and bilateral psoas muscle abscess [id number] needle aspiration of psoas muscle abscess. . Medications and IVs Inpatient Medications Acetaminophen (Tylenol) 650 mg Q6H PRN PO FEVER/PAIN SCALE 1 TO 2 Last administered on 08/15/17at 07:38; Start 07/29/17 at 23:15 Albuterol Sulfate (Proair Hfa Inh) 2 puff Q4H PRN INH SHORTNESS OF BREATH; Start 08/14/17 at 20:30 Amlodipine Besylate (Norvasc) 10 mg DAILY PO ; Start 08/15/17 at 09:00; Stop at 14:31; Status DC Bisacodyl (Dulcolax Supp) 10 mg DAILY PRN RECTAL SEVERE CONSITIPATION/ IF NPO ; Start 07/29/17 at 23:15 Calcium Carbonate (Tums Chew) 500 mg Q2H PRN CHEW indigestion Last administered on 09/21/17at 02:49; Start 08/02/17 at 19:30 Cefepime HCl 1000 mg/Sodium Chloride 100 ml @ 200 mls/hr Q12H IV Last administered on 08/01/17at 21:37; Start 07/30/17 at 09:00; Stop 08/02/17 at 06:53; Status DC Ceftriaxone Sodium 2000 mg/ Sodium Chloride 100 ml @ 200 mls/hr Q12H IV Last administered on 09/23/17at 09:51; Start 08/03/17 at 17:00 Clonidine (Catapres) 0.1 mg DAILY PO Last administered on 08/24/17at 07:58; Start 08/15/17 at 09:00; Stop 08/24/17 at 13:35; Status DC Cyclobenzaprine HCl (Flexeril) 5 mg TID PRN PO SPASM Last administered on at 09:52; Start 08/14/17 at 20:30 Dexamethasone Sodium Phosphate (Decadron Inj) 8 mg ONCE ONCE IV PUSH Last administered on 07/29/17at 20:42; Start 07/29/17 at 20:15; Stop 07/29/17 at 20:16 ; Status DC Dextrose/Sodium Chloride 1,000 ml @ 100 mls/hr Q10H IV Last administered on at 23:14; Start 08/25/17 at 11:45; Stop 08/26/17 at 16:28; Status DC Enalaprilat (Vasotec Inj) 2.5 mg Q6H PRN IV PUSH SBP > 165 Last administered on 09/09/17at 00:39; Start 08/06/17 at 11:00 Enoxaparin Sodium (Lovenox Inj) 40 mg Q24H SQ Last administered on 09/22/17at 16 :35; Start 09/02/17 at 16:00 Famotidine (Pepcid) 20 mg BID PO Last administered on 09/23/17 08:07; Start at 21:00 Gabapentin (Neurontin) 600 mg BID PO Last administered on 09/23/17 08:07; Start 09/06/17 at 21:00 Hydralazine HCl (Apresoline Inj) 10 mg Q4H PRN IV PUSH SBP > 165; Start at 10:00; Stop 08/06/17 at 11:01; Status DC Hydromorphone HCl (Dilaudid Pf Inj) 0.5 mg Q3H PRN IV PUSH Pain 3-5; if unable to take PO; Start 08/14/17 at 19:30; Stop 08/22/17 at 15:54; Status DC Lactic Acid (Lac-Hydrin 12% Lotion) 1 applic BID TOPICAL Last administered on 08:09; Start 08/17/17 at 11:00 Lactulose (Lactulose Liq) 30 ml DAILY PRN PO SEVERE CONSITIPATION/ IF PO Last administered on 08/19/17at 13:55; Start 07/29/17 at 23:15 Lorazepam (Ativan Inj) 1 mg Q2H PRN IV PUSH AGITATION/WITHDRAWAL Last administered on 08/14/17at 19:10; Start 07/29/17 at 23:15; Stop 08/24/17 at 13:35 ; Status DC Magnesium Hydroxide (Milk Of Magnesia Liq) 30 ml Q12H PRN PO Mild constipation ; Start 07/29/17 at 23:15 Magnesium Citrate (Citroma Liq) 300 ml ONCE ONCE PO Last administered on at 15:15; Start 08/21/17 at 13:15; Stop 08/21/17 at 13:16; Status DC Metoprolol Tartrate (Lopressor) 12.5 mg Q12HR PO Last administered on 6/24/ 18at 08:07; Start 09/16/17 at 10:15 Miscellaneous (Pill Splitter) 1 ea UNSCH PRN OTHER SEE LABEL COMMENTS Last administered on 09/18/17at 17:40; Start 09/16/17 at 10:30 Miscellaneous Information ([facility] [place] [facility] ALL NURSING DEPARTME... UNSCH PRN .XX SEE LABEL COMMENTS; Start 08/14/17 at 20:00; Stop 08/15/17 at 19: 59; Status DC Morphine Sulfate (Morphine Inj) 2 mg Q3H PRN IV PUSH Pain 6-10 Last administered on 08/01/17at 01:54; Start 07/30/17 at 20:45; Stop 08/01/17 at 08:56; Status DC Naloxone HCl (Narcan Inj) 0.4 mg UNSCH PRN IV PUSH SEE LABEL COMMENTS; Start at 19:30 Ondansetron HCl (Zofran Inj) 4 mg Q6H PRN IVP NAUSEA OR VOMITING; Start at 23:15 Oxycodone HCl (Roxicodone) 5 mg ONCE ONCE PO Last administered on 07/31/17at 22: 40; Start 07/31/17 at 22:15; Stop 07/31/17 at 22:18; Status DC Oxycodone/ Acetaminophen (Percocet 5-325 Mg) 1 tab Q4HR PRN PO PAIN 4-10 Last administered on 09/23/17at 08:09; Start 08/09/17 at 10:00 Oxycodone/ Acetaminophen (Percocet 10-325 Mg) 1 tab Q4H PRN PO PAIN SCALE 4 TO 10 Last administered on 08/06/17at 05:36; Start 08/01/17 at 09:00; Stop 08/09/17 at 09:39; Status DC Pharmacy Profile Note 0 ml @ 0 mls/hr UNSCH OTHER ; Start 07/29/17 at 23:15; Stop 08/06/17 at 14:40; Status DC Polyethylene Glycol (Miralax) 17 gm DAILY PO Last administered on 09/13/17at 09: 15; Start 08/18/17 at 09:00 Prednisone (Deltasone) 10 mg DAILY PO Last administered on 09/23/17at 08:07; Start 08/21/17 at 09:00 Senna/Docusate Sodium (Emilie-Colace) 1 tab BID PO Last administered on at 21:47; Start 07/30/17 at 09:00 Sennosides (Senokot) 17.2 mg Q12H PRN PO Moderate constipation; Start 07/29/17 at 23:15 Sodium Polystyrene Sulfonate (Kayexalate Liq) 15 gm ONCE ONCE PO Last administered on 09/22/17at 20:00; Start 09/22/17 at 19:15; Stop 09/22/17 at 19:16 ; Status DC Sodium Chloride 250 ml @ 15 mls/hr ONCE ONCE IV Last administered on at 10:17; Start 08/28/17 at 06:15; Stop 08/28/17 at 22:54; Status DC Sodium Chloride (NS Flush) 2 ml BID IV FLUSH Last administered on 09/23/17at 08: 06; Start 07/30/17 at 09:00 Vancomycin HCl 1000 mg/Sodium Chloride 250 ml @ 250 mls/hr ONCE ONCE IV Last administered on 07/30/17at 12:08; Start 07/30/17 at 12:00; Stop 07/30/17 at 12:59 ; Status DC Vancomycin HCl 1500 mg/Sodium Chloride 515 ml @ 257.5 mls/ hr ONCE ONCE IV Last administered on 07/31/17at 18:19; Start 07/31/17 at 18:00; Stop 07/31/17 at 19: 59; Status DC Vancomycin HCl 1750 mg/Sodium Chloride 517.5 ml @ 257.5 mls/ hr ONCE ONCE IV Last administered on 08/06/17at 14:05; Start 08/06/17 at 13:00; Stop 08/06/17 at 14: 40; Status DC Vancomycin HCl 2000 mg/Sodium Chloride 520 ml @ 250 mls/hr ONCE ONCE IV Last administered on 08/02/17at 14:50; Start 08/02/17 at 14:00; Stop 08/02/17 at 16:04; Status DC Vancomycin/Sodium Chloride 200 ml @ 200 mls/hr ONCE ONCE IV Last administered on 07/29/17at 23:55; Start 07/30/17 at 00:00; Stop 07/30/17 at 00:59 ; Status DC Zolpidem Tartrate (Ambien) 5 mg ONCE ONCE PO Last administered on 08/13/17at 01 :45; Start 08/13/17 at 01:45; Stop 08/13/17 at 01:46; Status DC A/P Problem List: (1) Osteomyelitis ICD Code: M86.9 - Osteomyelitis, unspecified Status: Acute (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 Osteomyelitis of the L5 vertebra/bilateral psoas muscle abscess/ bacteremia Status post CT-guided removal of fluid for culture as well as disc biopsy on 07/31. Appreciate neurosurgery, vascular surgery, infectious disease recommendations. Status post drainage of abscess on 08/14/17. Wound culture is negative. Mycobacterial and fungal cultures are negative. Bacteremia with Strep Anginosis. - 08/28 as per neurosurgery recommendations the patient will need at least 6 weeks(around the week of 09/18) of IV antibiotics then follow-up imaging study before consideration for procedure. -MRI ( 09/23) with Fluid in the disc space with extensive inflammatory changes at L4-5. Fluid/ soft tissue prominence in the anterior epidural space is more prominent and does extend superiorly underneath the posterior longitudinal ligament causing mild canal stenosis. Severe bilateral neural foraminal narrowing at this level. -will reconsult neurosurgery ( d/w today). -continue IV Rocephin- -ID following. 2. Encephalopathy Likely toxic secondary to drug abuse. S/P lumbar puncture. Evaluated by psychiatry, patient is capable of making decisions. - resolved. - Avoid overly sedating medications. 3. Cocaine abuse Urine toxicology positive for cocaine. There was concern that the patient may have used cocaine while in the hospital as his urine drug screen was positive 8 days after admission. - cessation instruction. - Visitors allowed again. 4. Right iliac artery aneurysm Patient noted to have a 2.9 cm aneurysm of the right internal iliac artery, possibly mycotic aneurysm. This was an incidental finding. He denies IV drug abuse. Appreciate vascular surgery recommendations. - No surgery planned at this time. 5. Chronic kidney disease stage II with acute kidney injury. Creatinine seems fairly stable. - monitor and avoid nephrotoxins. 6. Hypoglycemia- resolved. - ADAT. Continue Ensure. 7. Anemia Seems chronic. Anemia likely multifactorial. Follow-up stool blood Hemoccult. -Hemoglobin stable. 8. Hypertension - continue amlodipine and metoprolol. 9. Sarcoidosis on chronic prednisone. 10. 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 Outpatient follow-up DVT prophylaxis: SCDs and Lovenox subcutaneously. Discharge Planning when cleared by Mainor Scott MD Sep 23, 2017 11:21
[2017-09-23 12:00] VITALS: BP 148/102; PULSE 89; RESP 18; TEMP 97.1; O2SAT 94
[2017-09-23 16:00] VITALS: BP 124/81; PULSE 92; RESP 17; TEMP 97.8; O2SAT 95
[2017-09-23] MEDS: ENOXAPARIN SODIUM 40 MG/0.4 ML SYRINGE SQ SCH (16:24)
--- NOTE | 2017-09-23 19:22 | HHI.IDPN ---
Subjective Subjective Remarks Mr. Gee is a 57-year-old -[place] male with past medical history significant for rheumatoid arthritis on prednisone. From infectious disease standpoint his past medical history significant for prior history of strep epidural abscess as well as bacteremia treated with IV antibiotics and also needing L4 partial laminectomy in 2013 as well as an abscess on the skin of his back.. His past medical history is also significant for chronic kidney disease stage III, chronic back pain, cocaine abuse and tobacco abuse who presented to the emergency department with complaints of severe back pain. Patient is an extremely poor historian and reports that he has had a prior visit to the emergency room on July 23, 2017 with similar symptoms. An MRI of the L-spine did not show any evidence of infection patient was asked to follow-up with Dr. Pineda whom he has seen in the past. On arrival, BP 125/71, HR 86, O2 sat 100% RA, Afebrile. WBC 20.8. Na 128. K+ 5.5. Creatinine 2.84, previously 2.97 on 07/23/2017. INR 1.1. UA negative for UTI. 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 S/p Vanc/ Rocephin in ER. At the time of my evaluation patient is on a regular floor. Appears to be comfortable not in significant pain involving his extremities. Patient reports tingling numbness and extreme pain in his bilateral lower extremities right more than left. Patient denies any bowel bladder incontinence. Denies any decrease in perineal sensation. Infectious diseases consulted for evaluation and management of discitis and epidural abscess. Overnight events reviewed. no fever or chills no rash no N/V no diarrhea Complains of tingling numbness. Antibiotics IV Ceftriaxone q 12 Lines Line sites with no e.o infection. Past Medical History reviewed. Allergies: Coded Allergies: *MDRO Multi-Drug Resistant Organism (Verified Adverse Reaction, Unknown, ) MRSA (leg wound) - 10/2006 MRSA PCR screen positive - 10/2014 Objective . Vital Signs Date Time Temp Pulse Resp B/P (MAP) Pulse Ox O2 Delivery O2 Flow Rate FiO2 09/23/17 16:00 97.8 92 17 124/81 (95) 95 09/23/17 12:00 97.1 89 18 148/102 (117) 94 09/23/17 08:00 97.3 92 17 163/102 (122) 97 09/23/17 00:50 97.4 79 109/75 (86) 96 09/23/17 09/23/17 09/24/17 15:00 23:00 07:00 Intake Total 100 ml 600 ml Output Total 200 ml 1200 ml Balance -100 ml -600 ml Intake Oral 600 ml IV Total 100 ml Output Urine Total 1200 ml Emesis 200 ml # Bowel Movements 3 . Laboratory Tests Test 09/22/17 03:52 White Blood Count 5.0 TH/MM3 Red Blood Count 3.19 MIL/MM3 Hemoglobin 9.4 GM/DL Hematocrit 29.3 % Mean Corpuscular Volume 91.8 FL Mean Corpuscular Hemoglobin 29.4 PG Mean Corpuscular Hemoglobin Concent 32.0 % Red Cell Distribution Width 17.9 % Platelet Count 130 TH/MM3 Mean Platelet Volume 8.1 FL Neutrophils (%) (Auto) 61.2 % Lymphocytes (%) (Auto) 17.9 % Monocytes (%) (Auto) 11.9 % Eosinophils (%) (Auto) 8.1 % Basophils (%) (Auto) 0.9 % Neutrophils # (Auto) 3.1 TH/MM3 Lymphocytes # (Auto) 0.9 TH/MM3 Monocytes # (Auto) 0.6 TH/MM3 Eosinophils # (Auto) 0.4 TH/MM3 Basophils # (Auto) 0.0 TH/MM3 CBC Comment DIFF FINAL Differential Comment Erythrocyte Sedimentation Rate 35 mm/hr Laboratory Tests Test 09/22/17 03:52 09/22/17 13:40 09/22/17 23:16 Blood Urea Nitrogen 36 MG/DL 39 MG/DL Creatinine 1.71 MG/DL 1.64 MG/DL Random Glucose 81 MG/DL 80 MG/DL Total Protein 8.4 GM/DL Albumin 2.5 GM/DL Calcium Level 8.3 MG/DL 8.5 MG/DL Alkaline Phosphatase 176 U/L Aspartate Amino Transf (AST/SGOT) 50 U/L Alanine Aminotransferase (ALT/SGPT) 28 U/L Total Bilirubin 0.3 MG/DL Sodium Level 139 MEQ/L 138 MEQ/L Potassium Level 5.4 MEQ/L 6.1 MEQ/L 5.2 MEQ/L Chloride Level 108 MEQ/L 105 MEQ/L Carbon Dioxide Level 23.3 MEQ/L 22.2 MEQ/L Anion Gap 8 MEQ/L 11 MEQ/L Estimat Glomerular Filtration Rate 51 ML/MIN 53 ML/MIN Imaging Last Impressions Needle Aspiration CT 08/30/17 1356 Signed Impressions: CONCLUSION: 1. Uncomplicated procedure as above. Lumbar Spine CT 08/29/17 0000 Signed Impressions: CONCLUSION: 1. There is destructive changes involving the disc space at L4-5 characteristi c for discitis. 2. There are destructive changes predominantly in the body of L5 consistent wi th osteomyelitis. There is prominent paraspinal soft tissue swelling at the L4- L5 level. 3. Mild grade 1 anterior spondylolisthesis of L4 over L5. 4. Limited visualization of the spinal canal at L4-5 due to the inflammatory c hanges. 5. Bilateral facet arthritis at multiple levels. 6. Broad-based bulging at L2-3 and L3-4. Lumbar Spine MRI 08/28/17 0000 Signed Impressions: CONCLUSION: 1. Improvement as above. Persistent fluid remains on the left. Persistent evid ence for inflammatory process remains at the L4-5 disc. 2. Less inflammatory changes in the retroperitoneum. Chest X-Ray 08/15/17 0000 Signed Impressions: Service Date/Time: Tuesday, August 15, 2017 11:34 - CONCLUSION: Mild compensated cardiomegaly Roly Reina MD FACR Lumbar Puncture Fluoroscopy 08/08/17 0000 Signed Impressions: Service Date/Time: Tuesday, August 08, 2017 15:42 - CONCLUSION: Uncomplicated fluoroscopically guided lumbar puncture. Fady Chan MD Needle Biopsy/Aspiration X-Ray 07/31/17 0000 Signed Impressions: Service Date/Time: Monday, July 31, 2017 13:29 - CONCLUSION: Uncomplicated needle biopsy of the L4/L5 disc space as above. Candelario Reina MD Abdomen/Pelvis CT 07/29/17 0000 Signed Impressions: Service Date/Time: Saturday, July 29, 2017 22:14 - CONCLUSION: 1. Significant new prevertebral soft tissue fullness and stranding centered at the L5 level. There is associated sclerosis and erosive changes in the anterior L5 vertebral body which appear unchanged from recent exams. Overall, findings are concerning for discitis and osteomyelitis. Consider repeat MRI examination for further evaluation. 2. 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 However, evaluation is significantly limited due to lack of IV contrast on this exam. This was not present on remote prior CT exam. A mycotic aneurysm cannot be entirely excluded. Contrast enhanced examination would be greatly beneficial in further evaluation. 3. Nodular appearing liver contour consistent with cirrhosis. 4. IVC filter in place. 5. Cholelithiasis. Tanner Jones MD Physical Exam GENERAL: Well developed well nourished male patient, INAD. Awake and alert. Lying in hospital bed. Becomes tearful talking about his brothers tomorrow. SKIN: Warm and dry. No obvious rash. HEAD: Atraumatic. Normocephalic. EYES: EOMI. No scleral icterus. No injection or drainage. ENT: No gross bleeding. MMM. NECK: Trachea midline. Moves neck in all directions. No rigidity noted. CARDIOVASCULAR: Regular rate and rhythm. RESPIRATORY: Nonlabored. Diminished. Clear to auscultation anteriorly. GASTROINTESTINAL: Soft, postop with surgical incision over left side of abdomen with dry and intact dressing, incision appears to be healing well. MUSCULOSKELETAL: No pedal edema NEUROLOGICAL: Awake and alert. Moves all extremities spontaneously. Decreased ROM RLE. Normal speech. PSYCHIATRIC: Calm and cooperative. IV line sites with no e.o infection Assessment & Plan Remarks Strep bacteremia, probable endocarditis Probable meningitis based on glucose and total protein (partially treated by the time LP done) Epidural abscess Discitis. - Repeat MRI shows persistent fluid remains on the left. Persistent evidence for inflammatory process remains at the L4-5 disc and Less inflammatory changes in the retroperitoneum. Bilateral psoas fluid collection s/p I&D 08/14 with 250ml yellowish purulent material removed. Fever postop, resolved. -repeat MRI shows persistent fluid remains on the left. Persistent evidence for inflammatory process remains at the L4-5 disc and less inflammatory changes in the retroperitoneum.improvement in the retroperitoneum with less inflammatory changes. Per Dr. Reina, appears multiloculated. 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 Immune compromised host on steroids Acute on chronic kidney disease, resolved Hyperkalemia, resolved Hep B reactive Anemia, hgb 6.9 s/p transfusion hgb 8.5 Recs Continue on IV Ceftriaxone q12h MRI spine reviewed with patient. Peng Portillo to reconsult neurosurgery. Also have palliative care follow up. Follow clinically. Latricia Goldstein MD Sep 23, 2017 19:22
[2017-09-23 20:00] VITALS: BP 126/89; PULSE 100; RESP 20; TEMP 97.9; O2SAT 99
[2017-09-24] VITALS: BP 119/67; PULSE 87; RESP 20; TEMP 98.1; O2SAT 95
[2017-09-24] MEDS: oxyCODONE/ACETAMINOPHEN 5 MG/325 MG TAB PO PRN ×3 (05:39→16:52)
[2017-09-24 07:52] VITALS: BP 160/108; PULSE 92; RESP 19; TEMP 97.2; O2SAT 95
[2017-09-24] MEDS ORDERED: predniSONE 10 MG TAB PO SCH (09:00)
[2017-09-24] MEDS: LACTIC ACID (AMMONIUM LACTATE) 12% LOTION 225 GM BTL TOPICAL SCH ×4 (09:00→21:00)
--- NOTE | 2017-09-24 09:25 | HHI.PR ---
Subjective Remarks in no acute distress. pain is controlled. no fever. no new complaints. Objective Vitals Vital Signs Date Time Temp Pulse Resp B/P (MAP) Pulse Ox O2 Delivery O2 Flow Rate FiO2 09/24/17 07:52 97.2 92 19 160/108 (125) 95 09/24/17 00:00 98.1 87 20 119/67 (84) 95 09/23/17 20:00 97.9 100 20 126/89 (101) 99 09/23/17 16:00 97.8 92 17 124/81 (95) 95 09/23/17 12:00 97.1 89 18 148/102 (117) 94 I/O 09/23/17 09/23/17 09/23/17 09/24/17 09/24/17 09/24/17 07:00 15:00 23:00 07:00 15:00 23:00 Intake Total 100 ml 700 ml 720 ml Output Total 1300 ml 200 ml 1200 ml 900 ml Balance -1300 ml -100 ml -500 ml -180 ml Intake Oral 600 ml 720 ml IV Total 100 ml 100 ml Output Urine Total 1300 ml 1200 ml 900 ml Emesis 200 ml # Bowel Movements 3 0 Result Diagram: 09/22/17 0352 09/24/17 0614 Imaging Last Impressions Lumbar Spine MRI 09/23/17 0000 Signed Impressions: CONCLUSION: 1. Fluid in the disc space with extensive inflammatory changes at L4-5. Fluid/ soft tissue prominence in the anterior epidural space is more prominent and duong s extend superiorly underneath the posterior longitudinal ligament causing mild canal stenosis. Severe bilateral neural foraminal narrowing at this level. 2. Diffuse facet arthropathy. Needle Aspiration CT 08/30/17 1356 Signed Impressions: CONCLUSION: 1. Uncomplicated procedure as above. Lumbar Spine CT 08/29/17 0000 Signed Impressions: CONCLUSION: 1. There is destructive changes involving the disc space at L4-5 characteristi c for discitis. 2. There are destructive changes predominantly in the body of L5 consistent wi th osteomyelitis. There is prominent paraspinal soft tissue swelling at the L4- L5 level. 3. Mild grade 1 anterior spondylolisthesis of L4 over L5. 4. Limited visualization of the spinal canal at L4-5 due to the inflammatory c hanges. 5. Bilateral facet arthritis at multiple levels. 6. Broad-based bulging at L2-3 and L3-4. Chest X-Ray 08/15/17 0000 Signed Impressions: Service Date/Time: Tuesday, August 15, 2017 11:34 - CONCLUSION: Mild compensated cardiomegaly Roly Reina MD FACR Lumbar Puncture Fluoroscopy 08/08/17 0000 Signed Impressions: Service Date/Time: Tuesday, August 08, 2017 15:42 - CONCLUSION: Uncomplicated fluoroscopically guided lumbar puncture. Fady Chan MD Needle Biopsy/Aspiration X-Ray 07/31/17 0000 Signed Impressions: Service Date/Time: Monday, July 31, 2017 13:29 - CONCLUSION: Uncomplicated needle biopsy of the L4/L5 disc space as above. Candelario Reina MD Abdomen/Pelvis CT 07/29/17 0000 Signed Impressions: Service Date/Time: Saturday, July 29, 2017 22:14 - CONCLUSION: 1. Significant new prevertebral soft tissue fullness and stranding centered at the L5 level. There is associated sclerosis and erosive changes in the anterior L5 vertebral body which appear unchanged from recent exams. Overall, findings are concerning for discitis and osteomyelitis. Consider repeat MRI examination for further evaluation. 2. 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 However, evaluation is significantly limited due to lack of IV contrast on this exam. This was not present on remote prior CT exam. A mycotic aneurysm cannot be entirely excluded. Contrast enhanced examination would be greatly beneficial in further evaluation. 3. Nodular appearing liver contour consistent with cirrhosis. 4. IVC filter in place. 5. Cholelithiasis. Tanner Jones MD Objective Remarks GENERAL: This is a well-nourished, well-developed patient, in no apparent distress. CARDIOVASCULAR: Regular rate and regular rhythm without murmurs, gallops, or rubs. RESPIRATORY: Clear to auscultation. Breath sounds equal bilaterally. No wheezes , rales, or rhonchi. GASTROINTESTINAL: Abdomen soft, non-tender, nondistended. Normal, active bowel sounds MUSCULOSKELETAL: Extremities without clubbing, cyanosis, or edema. NEURO: lethargic but arousable. Procedures CT-guided removal of fluid for culture as well as disc biopsy L4-5 on 07/31/17 08/14/17 lateral oblique approach for drainage of lumbar retroperitoneal and bilateral psoas muscle abscess 5/31/[id number] needle aspiration of psoas muscle abscess. . Medications and IVs Inpatient Medications Acetaminophen (Tylenol) 650 mg Q6H PRN PO FEVER/PAIN SCALE 1 TO 2 Last administered on 08/15/17at 07:38; Start 07/29/17 at 23:15 Albuterol Sulfate (Proair Hfa Inh) 2 puff Q4H PRN INH SHORTNESS OF BREATH; Start 08/14/17 at 20:30 Amlodipine Besylate (Norvasc) 10 mg DAILY PO ; Start 08/15/17 at 09:00; Stop at 14:31; Status DC Bisacodyl (Dulcolax Supp) 10 mg DAILY PRN RECTAL SEVERE CONSITIPATION/ IF NPO ; Start 07/29/17 at 23:15 Calcium Carbonate (Tums Chew) 500 mg Q2H PRN CHEW indigestion Last administered on 09/21/17at 02:49; Start 08/02/17 at 19:30 Cefepime HCl 1000 mg/Sodium Chloride 100 ml @ 200 mls/hr Q12H IV Last administered on 08/01/17at 21:37; Start 07/30/17 at 09:00; Stop 08/02/17 at 06:53; Status DC Ceftriaxone Sodium 2000 mg/ Sodium Chloride 100 ml @ 200 mls/hr Q12H IV Last administered on 09/23/17at 21:34; Start 08/03/17 at 17:00 Clonidine (Catapres) 0.1 mg DAILY PO Last administered on 08/24/17at 07:58; Start 08/15/17 at 09:00; Stop 08/24/17 at 13:35; Status DC Cyclobenzaprine HCl (Flexeril) 5 mg TID PRN PO SPASM Last administered on at 09:52; Start 08/14/17 at 20:30 Dexamethasone Sodium Phosphate (Decadron Inj) 8 mg ONCE ONCE IV PUSH Last administered on 07/29/17at 20:42; Start 07/29/17 at 20:15; Stop 07/29/17 at 20:16 ; Status DC Dextrose/Sodium Chloride 1,000 ml @ 100 mls/hr Q10H IV Last administered on at 23:14; Start 08/25/17 at 11:45; Stop 08/26/17 at 16:28; Status DC Enalaprilat (Vasotec Inj) 2.5 mg Q6H PRN IV PUSH SBP > 165 Last administered on 09/09/17at 00:39; Start 08/06/17 at 11:00 Enoxaparin Sodium (Lovenox Inj) 40 mg Q24H SQ Last administered on 09/23/17at 16 :24; Start 09/02/17 at 16:00 Famotidine (Pepcid) 20 mg BID PO Last administered on 09/23/17at 21:33; Start at 21:00 Gabapentin (Neurontin) 600 mg BID PO Last administered on 09/23/17 21:32; Start 09/06/17 at 21:00 Hydralazine HCl (Apresoline Inj) 10 mg Q4H PRN IV PUSH SBP > 165; Start at 10:00; Stop 08/06/17 at 11:01; Status DC Hydromorphone HCl (Dilaudid Pf Inj) 0.5 mg Q3H PRN IV PUSH Pain 3-5; if unable to take PO; Start 08/14/17 at 19:30; Stop 08/22/17 at 15:54; Status DC Lactic Acid (Lac-Hydrin 12% Lotion) 1 applic BID TOPICAL Last administered on at 08:09; Start 08/17/17 at 11:00 Lactulose (Lactulose Liq) 30 ml DAILY PRN PO SEVERE CONSITIPATION/ IF PO Last administered on 08/19/17at 13:55; Start 07/29/17 at 23:15 Lorazepam (Ativan Inj) 1 mg Q2H PRN IV PUSH AGITATION/WITHDRAWAL Last administered on 08/14/17at 19:10; Start 07/29/17 at 23:15; Stop 08/24/17 at 13:35 ; Status DC Magnesium Hydroxide (Milk Of Magnesia Liq) 30 ml Q12H PRN PO Mild constipation ; Start 07/29/17 at 23:15 Magnesium Citrate (Citroma Liq) 300 ml ONCE ONCE PO Last administered on at 15:15; Start 08/21/17 at 13:15; Stop 08/21/17 at 13:16; Status DC Metoprolol Tartrate (Lopressor) 12.5 mg Q12HR PO Last administered on at 21:33; Start 09/16/17 at 10:15 Miscellaneous (Pill Splitter) 1 ea UNSCH PRN OTHER SEE LABEL COMMENTS Last administered on 09/18/17at 17:40; Start 09/16/17 at 10:30 Miscellaneous Information ([facility] [place] [facility] [place] ALL NURSING DEPARTME... UNSCH PRN .XX SEE LABEL COMMENTS; Start 08/14/17 at 20:00; Stop 08/15/17 at 19: 59; Status DC Morphine Sulfate (Morphine Inj) 2 mg Q3H PRN IV PUSH Pain 6-10 Last administered on 08/01/17at 01:54; Start 07/30/17 at 20:45; Stop 08/01/17 at 08:56; Status DC Naloxone HCl (Narcan Inj) 0.4 mg UNSCH PRN IV PUSH SEE LABEL COMMENTS; Start at 19:30 Ondansetron HCl (Zofran Inj) 4 mg Q6H PRN IVP NAUSEA OR VOMITING; Start at 23:15 Oxycodone HCl (Roxicodone) 5 mg ONCE ONCE PO Last administered on 07/31/17at 22: 40; Start 07/31/17 at 22:15; Stop 07/31/17 at 22:18; Status DC Oxycodone/ Acetaminophen (Percocet 5-325 Mg) 1 tab Q4HR PRN PO PAIN 4-10 Last administered on 09/24/17at 05:39; Start 08/09/17 at 10:00 Oxycodone/ Acetaminophen (Percocet 10-325 Mg) 1 tab Q4H PRN PO PAIN SCALE 4 TO 10 Last administered on 08/06/17at 05:36; Start 08/01/17 at 09:00; Stop 08/09/17 at 09:39; Status DC Pharmacy Profile Note 0 ml @ 0 mls/hr UNSCH OTHER ; Start 07/29/17 at 23:15; Stop 08/06/17 at 14:40; Status DC Polyethylene Glycol (Miralax) 17 gm DAILY PO Last administered on 09/13/17at 09: 15; Start 08/18/17 at 09:00 Prednisone (Deltasone) 10 mg DAILY PO ; Start 09/24/17 at 09:00 Senna/Docusate Sodium (Emilie-Colace) 1 tab BID PO Last administered on at 21:32; Start 07/30/17 at 09:00 Sennosides (Senokot) 17.2 mg Q12H PRN PO Moderate constipation; Start 07/29/17 at 23:15 Sodium Polystyrene Sulfonate (Kayexalate Liq) 15 gm ONCE ONCE PO Last administered on 09/22/17at 20:00; Start 09/22/17 at 19:15; Stop 09/22/17 at 19:16 ; Status DC Sodium Chloride 250 ml @ 15 mls/hr ONCE ONCE IV Last administered on at 10:17; Start 08/28/17 at 06:15; Stop 08/28/17 at 22:54; Status DC Sodium Chloride (NS Flush) 2 ml BID IV FLUSH Last administered on 09/23/17at 21: 33; Start 07/30/17 at 09:00 Vancomycin HCl 1000 mg/Sodium Chloride 250 ml @ 250 mls/hr ONCE ONCE IV Last administered on 07/30/17at 12:08; Start 07/30/17 at 12:00; Stop 07/30/17 at 12:59 ; Status DC Vancomycin HCl 1500 mg/Sodium Chloride 515 ml @ 257.5 mls/ hr ONCE ONCE IV Last administered on 07/31/17at 18:19; Start 07/31/17 at 18:00; Stop 07/31/17 at 19: 59; Status DC Vancomycin HCl 1750 mg/Sodium Chloride 517.5 ml @ 257.5 mls/ hr ONCE ONCE IV Last administered on 08/06/17at 14:05; Start 08/06/17 at 13:00; Stop 08/06/17 at 14: 40; Status DC Vancomycin HCl 2000 mg/Sodium Chloride 520 ml @ 250 mls/hr ONCE ONCE IV Last administered on 08/02/17at 14:50; Start 08/02/17 at 14:00; Stop 08/02/17 at 16:04; Status DC Vancomycin/Sodium Chloride 200 ml @ 200 mls/hr ONCE ONCE IV Last administered on 07/29/17at 23:55; Start 07/30/17 at 00:00; Stop 07/30/17 at 00:59 ; Status DC Zolpidem Tartrate (Ambien) 5 mg ONCE ONCE PO Last administered on 08/13/17at 01 :45; Start 08/13/17 at 01:45; Stop 08/13/17 at 01:46; Status DC A/P Problem List: (1) Osteomyelitis ICD Code: M86.9 - Osteomyelitis, unspecified Status: Acute (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 Osteomyelitis of the L5 vertebra/bilateral psoas muscle abscess/ bacteremia Status post CT-guided removal of fluid for culture as well as disc biopsy on 07/31. Appreciate neurosurgery, vascular surgery, infectious disease recommendations. Status post drainage of abscess on 08/14/17. Wound culture is negative. Mycobacterial and fungal cultures are negative. Bacteremia with Strep Anginosis. - 08/28 as per neurosurgery recommendations the patient will need at least 6 weeks(around the week of 09/18) of IV antibiotics then follow-up imaging study before consideration for procedure. -MRI ( 09/23) with Fluid in the disc space with extensive inflammatory changes at L4-5. Fluid/ soft tissue prominence in the anterior epidural space is more prominent and does extend superiorly underneath the posterior longitudinal ligament causing mild canal stenosis. Severe bilateral neural foraminal narrowing at this level. - reconsulted neurosurgery. -continue IV Rocephin- -ID following. 2. Encephalopathy Likely toxic secondary to drug abuse. S/P lumbar puncture. Evaluated by psychiatry, patient is capable of making decisions. - resolved. - Avoid overly sedating medications. 3. Cocaine abuse Urine toxicology positive for cocaine. There was concern that the patient may have used cocaine while in the hospital as his urine drug screen was positive 8 days after admission. - cessation instruction. - Visitors allowed again. 4. Right iliac artery aneurysm Patient noted to have a 2.9 cm aneurysm of the right internal iliac artery, possibly mycotic aneurysm. This was an incidental finding. He denies IV drug abuse. Appreciate vascular surgery recommendations. - No surgery planned at this time. 5. Chronic kidney disease stage II with acute kidney injury. mild hyperkalemia one dose of Kayexalate today. Creatinine seems fairly stable. - monitor and avoid nephrotoxins. 6. Hypoglycemia- resolved. - ADAT. Continue Ensure. 7. Anemia Seems chronic. Anemia likely multifactorial. Follow-up stool blood Hemoccult. -Hemoglobin stable. 8. Hypertension - continue amlodipine and metoprolol. 9. Sarcoidosis on chronic prednisone. 10. 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 Outpatient follow-up DVT prophylaxis: SCDs and Lovenox subcutaneously. palliative care following. Discharge Planning when cleared by Mainor Scott MD Sep 24, 2017 09:25
[2017-09-24] MEDS: POLYETHYLENE GLYCOL 17 GM PKG PO SCH (09:30)
[2017-09-24] MEDS ORDERED: SODIUM POLYSTYRENE SULFONATE SUSP 15 GM/60 ML CUP PO ONE (09:30)
[2017-09-24] MEDS: GABAPENTIN 300 MG CAP PO SCH ×2 (09:31→21:48)
[2017-09-24] MEDS: FAMOTIDINE 20 MG TAB PO SCH ×2 (09:31→21:48)
[2017-09-24] MEDS: predniSONE 10 MG TAB PO SCH (09:31)
[2017-09-24] MEDS: METOPROLOL TARTRATE 25 MG TAB PO SCH ×2 (09:31→21:49)
[2017-09-24] MEDS: DOCUSATE SODIUM 50 MG/SENNA 8.6 MG TAB PO SCH ×2 (09:32→21:58)
[2017-09-24] MEDS: SODIUM CHLORIDE 0.9% FLUSH 10 ML FLUSH IV FLUSH SCH ×2 (09:45→21:00)
[2017-09-24] MEDS: cefTRIAXone INJ 2,000 MG in SODIUM CHLORIDE 0.9% INJ 100 ML IV SCH ×2 (11:58→21:48)
[2017-09-24 12:00] VITALS: BP 148/87; PULSE 99; RESP 18; TEMP 97.1; O2SAT 96
--- NOTE | 2017-09-24 12:00 | HHI.NSPN ---
(Apolinar ArguetaShania HERNANDEZ) History Chief Complaint: Being in the hospital is "messing" with his head. (Apolinar ArguetaShania MARY) Interval History 08/30/2017: Complains of persistent low back pain with some radiation to the proximal right thigh. CT guided aspiration of recurrent psoas muscle abscess per interventional radiology. 09/06: The patient complains of pain to the back when seen this morning. He stated that it recently started and is severe enough to make him cry at times. When asked where the pain is he indicates the right psoas muscle region. He states that the pain does go down into the right thigh at times. When he lays with his knees flexed it does relieve the pain. He had no midline pain upon palpation but was tender to the right psoas. He had no deficits in his sensorimotor exam. He did have referred pain to the back with muscle strength testing. 09/13: When seen this morning the patient is awake visiting with a friend and watching TV. He continues to have some pain to the right medial low back and is minimally tender at the medial right psoas. There is no change in his sensorimotor exam. Patient states that he did get up yesterday and ambulate with Physical Therapy. 09/20: This afternoon the patient is asleep but awakens to voice. He states he is doing good but then says he does have some pain to the right hip that comes around to the left hip and goes down the left leg. Upon evaluation the patient has no sensorimotor deficits. He denies any drop foot or difficulty ambulating. 09/24: The patient this afternoon is awake in bed watching TV. He has no complaints at present of back pain or pain radiating into the lower extremities. He also states that he is able to get up with the LSO brace on using the front wheeled walker without any difficultly. He does say when he gets up he is bent forward due to his back. His only complaint, which he keeps repeating is that being in the hospital is "messing" with his head and he wants to get his back taken care of before he leaves the hospital. He was told several times that Dr Felipe had been out of town and returned yesterday and would review his MRI that was completed yesterday, and then come and speak with him about what needs may be done. (Apolinar Argueta) Exam Results 09/22/17 09/22/17 09/23/17 09/23/17 09/24/17 09/24/17 06:00 18:00 06:00 18:00 06:00 18:00 Intake Total 520 ml 775 ml 100 ml 700 ml 820 ml Output Total 1301 ml 2800 ml 2700 ml 900 ml Balance -781 ml -2025 ml 100 ml -2000 ml -80 ml Intake Oral 420 ml 775 ml 600 ml 720 ml IV Total 100 ml 100 ml 100 ml 100 ml Output Urine Total 1300 ml 2800 ml 2500 ml 900 ml Stool Total 1 ml Emesis 200 ml # Voids 4 # Bowel Movements 1 2 1 Vital Signs Date Time Temp Pulse Resp B/P (MAP) Pulse Ox O2 Delivery O2 Flow Rate FiO2 09/24/17 07:52 97.2 92 19 160/108 (125) 95 09/24/17 00:00 98.1 87 20 119/67 (84) 95 09/23/17 20:00 97.9 100 20 126/89 (101) 99 09/23/17 16:00 97.8 92 17 124/81 (95) 95 09/23/17 12:00 97.1 89 18 148/102 (117) 94 09/23/17 08:00 97.3 92 17 163/102 (122) 97 09/23/17 00:50 97.4 79 109/75 (86) 96 09/22/17 19:05 98.4 95 12 120/86 (97) 97 09/22/17 17:12 98.1 91 16 150/88 (108) 96 09/22/17 11:10 97.1 83 19 136/79 (98) 97 09/22/17 08:00 97.3 81 18 135/72 (93) 93 09/22/17 08:00 97.3 81 18 135/72 (93) 93 09/22/17 00:00 97.1 89 20 115/82 (93) 96 09/21/17 20:00 97.8 107 20 138/83 (101) 94 09/21/17 16:00 98.0 103 20 124/88 (100) 98 (Apolinar Argueta) Physical Examination GENERAL: Awake in bed watching TV. Affect essentially normal & readily interacts. No apparent distress. SKIN: Left anterolateral abdominal wall surgical incision healed w/o complication. HEENT: Normocephalic, atraumatic. GASTROINTESTINAL: Abdomen soft, nontender, surgical incision NTTP. MUSCULOSKELETAL: HUANG spontaneously & purposefully w/o difficulty. No evident clubbing or deformity. Lower extremities NTTP. Midline lumbar spine NTTP. NEUROLOGICAL: AAOx3. Speech clear & appropriate. Follows commands w/o difficulty. Sensation intact to light touch to the lower extremities except for chronically decrease to both feet. Muscle strength is 5/5 to the lower extremities. (Apolinar Argueta) Lab, Micro, Other Results Recent Impressions Lumbar Spine MRI 09/23/17 0000 Signed Impressions: CONCLUSION: 1. Fluid in the disc space with extensive inflammatory changes at L4-5. Fluid/ soft tissue prominence in the anterior epidural space is more prominent and duong s extend superiorly underneath the posterior longitudinal ligament causing mild canal stenosis. Severe bilateral neural foraminal narrowing at this level. 2. Diffuse facet arthropathy. Laboratory Tests Test 09/22/17 03:52 09/22/17 13:40 09/22/17 23:16 09/24/17 06:14 White Blood Count 5.0 TH/MM3 Red Blood Count 3.19 MIL/MM3 Hemoglobin 9.4 GM/DL Hematocrit 29.3 % Mean Corpuscular Volume 91.8 FL Mean Corpuscular Hemoglobin 29.4 PG Mean Corpuscular Hemoglobin Concent 32.0 % Red Cell Distribution Width 17.9 % Platelet Count 130 TH/MM3 Mean Platelet Volume 8.1 FL Neutrophils (%) (Auto) 61.2 % Lymphocytes (%) (Auto) 17.9 % Monocytes (%) (Auto) 11.9 % Eosinophils (%) (Auto) 8.1 % Basophils (%) (Auto) 0.9 % Neutrophils # (Auto) 3.1 TH/MM3 Lymphocytes # (Auto) 0.9 TH/MM3 Monocytes # (Auto) 0.6 TH/MM3 Eosinophils # (Auto) 0.4 TH/MM3 Basophils # (Auto) 0.0 TH/MM3 CBC Comment DIFF FINAL Differential Comment Erythrocyte Sedimentation Rate 35 mm/hr Blood Urea Nitrogen 36 MG/DL 39 MG/DL Creatinine 1.71 MG/DL 1.64 MG/DL Random Glucose 81 MG/DL 80 MG/DL Total Protein 8.4 GM/DL Albumin 2.5 GM/DL Calcium Level 8.3 MG/DL 8.5 MG/DL Alkaline Phosphatase 176 U/L Aspartate Amino Transf (AST/SGOT) 50 U/L Alanine Aminotransferase (ALT/SGPT) 28 U/L Total Bilirubin 0.3 MG/DL Sodium Level 139 MEQ/L 138 MEQ/L Potassium Level 5.4 MEQ/L 6.1 MEQ/L 5.2 MEQ/L 5.4 MEQ/L Chloride Level 108 MEQ/L 105 MEQ/L Carbon Dioxide Level 23.3 MEQ/L 22.2 MEQ/L Anion Gap 8 MEQ/L 11 MEQ/L Estimat Glomerular Filtration Rate 51 ML/MIN 53 ML/MIN (Apolinar Argueta) Medical Decision Making Impression and Plan Impression: 1, 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 History of chronic low back pain. 3. L4-5 moderate spinal stenosis w/grade 1 spondylolisthesis 4. Prevertebral/retroperitoneal abscess 5. Possible L5 anterior osteomyelitis w/elevated sed rate and white count Postoperative Diagnosis: (1) Osteomyelitis (Neurosurgery) Lumbar discitis, osteomyelitis (Neurosurgery) Lumbar retroperitoneal-bilateral psoas abscess (Neurosurgery) Psoas abscess, paraspinal abscesses, sepsis. (General Surgery) Patient with doing well. No complaints of pain. Only complaining about how being in the hospital is "messing" with his mind. No sensorimotor deficits noted except for both feet which have chronically decreased sensation. Past 24 hrs: Afebrile. SBP in 160s in the morning. Reviewed labs for today. Slight increase in hyperkalemia from . MRI lumbar spine demonstrated fluid in disc space w/extensive inflammatory changes at L4-5; fluid/soft tissue prominence anterior epidural space more prominent & extends superiorly under the posterior longitudinal ligament resulting in mild canal stenosis; severe bilateral neural foraminal narrowing at this level. Diffuse facet arthropathy. : Lateral oblique approach for drainage of lumbar retroperitoneal and bilateral psoas muscle abscess (Neurosurgery) Retroperitoneal approach to the psoas muscle and drainage of psoas abscess and paraspinal abscess drainage. (General Surgery - Alyson Sanchez MD) ALY drains d/c'd . : CT guided aspiration of recurrent psoas muscle abscess by Interventional Radiology Plan: Discussed the plan of care with the patient who verbalised his understanding and his questions were answered. Primary management per Hospitalist. Antibiotics per Infectious Disease. Mobilise patient w/assistance. LSO brace when OOB. Physical Therapy eval & tx. (Apolinar Argueta) Attending Statement The exam, history, and the medical decision-making described in the above note were completed with the assistance of the mid-level provider. I reviewed and agree with the findings presented. I attest that I had a [id number] encounter with the patient on the same day, and personally performed and documented my assessment and findings in the medical record. Patient remains neurologically stable. He states LBP tolerable when ambulating with brace. No significant pain radiation to the lower extremities with ambulation. 09/23/2017 MRI lumbar spine images reviewed. Mostly mild overall canal stenosis , likely some chronic epidural inflammation. There is no significant residual subluxation at the L4-5 level. The vertebral bodies have settled in good alignment despite persistent separation of the facet. No surgical intervention anticipated at this point. He will need follow-up lumbar flexion and extension x-ray in approximately 4-6 weeks with a follow-up CT scan lumbar spine in approximately 8-12 weeks to check for possible spontaneous fusion at the L4-5 level. Stable for discharge from NS standpoint Discussed above findings and recommendations at length with the patient. All questions answered (Guero Felipe MD) Apolinar Argueta Sep 24, 2017 12:00 Guero Felipe MD Sep 25, 2017 19:55
[2017-09-24] MEDS: ENOXAPARIN SODIUM 40 MG/0.4 ML SYRINGE SQ SCH (16:53)
[2017-09-24 17:02] VITALS: BP 137/91; PULSE 58; RESP 19; TEMP 97.2; O2SAT 95
[2017-09-24 20:00] VITALS: BP 118/86; PULSE 90; RESP 18; TEMP 97.3; O2SAT 91
[2017-09-25] VITALS: BP 136/72; PULSE 86; RESP 18; TEMP 97.9; O2SAT 96
[2017-09-25 08:00] VITALS: BP 169/96; PULSE 91; RESP 19; TEMP 97.4; O2SAT 95
[2017-09-25] MEDS: LACTIC ACID (AMMONIUM LACTATE) 12% LOTION 225 GM BTL TOPICAL SCH ×4 (09:00→21:00)
[2017-09-25] MEDS: POLYETHYLENE GLYCOL 17 GM PKG PO SCH (09:00)
[2017-09-25] MEDS: SODIUM CHLORIDE 0.9% FLUSH 10 ML FLUSH IV FLUSH SCH ×2 (09:00→21:00)
[2017-09-25] MEDS: GABAPENTIN 300 MG CAP PO SCH ×2 (10:06→22:00)
[2017-09-25] MEDS: DOCUSATE SODIUM 50 MG/SENNA 8.6 MG TAB PO SCH ×2 (10:07→22:00)
[2017-09-25] MEDS: predniSONE 10 MG TAB PO SCH (10:07)
[2017-09-25] MEDS: FAMOTIDINE 20 MG TAB PO SCH ×2 (10:07→22:00)
[2017-09-25] MEDS: METOPROLOL TARTRATE 25 MG TAB PO SCH ×2 (10:08→22:01)
[2017-09-25] MEDS: oxyCODONE/ACETAMINOPHEN 5 MG/325 MG TAB PO PRN ×2 (10:17→15:02)
[2017-09-25] MEDS: cefTRIAXone INJ 2,000 MG in SODIUM CHLORIDE 0.9% INJ 100 ML IV SCH ×2 (10:18→22:01)
--- NOTE | 2017-09-25 10:51 | HHI.PR ---
Subjective Remarks in no acute distress. but says that ' he's frustrated since he's been in the hospital for so long'. complaining of some back pain. afebrile. d/w the RN. Objective Vitals Vital Signs Date Time Temp Pulse Resp B/P (MAP) Pulse Ox O2 Delivery O2 Flow Rate FiO2 09/25/17 08:00 97.4 91 19 169/96 (120) 95 09/25/17 00:00 97.9 86 18 136/72 (93) 96 09/24/17 20:00 97.3 90 18 118/86 (97) 91 09/24/17 17:02 97.2 58 19 137/91 (106) 95 09/24/17 12:00 97.1 99 18 148/87 (107) 96 I/O 09/24/17 09/24/17 09/24/17 09/25/17 09/25/17 09/25/17 07:00 15:00 23:00 07:00 15:00 23:00 Intake Total 720 ml 1460 ml 720 ml Output Total 900 ml 1400 ml 2000 ml 575 ml Balance -180 ml 60 ml -1280 ml -575 ml Intake Oral 720 ml 1360 ml 720 ml IV Total 100 ml Output Urine Total 900 ml 1400 ml 2000 ml 575 ml # Bowel Movements 0 1 Result Diagram: 09/22/17 0352 09/24/17 0614 Imaging Last Impressions Lumbar Spine MRI 09/23/17 0000 Signed Impressions: CONCLUSION: 1. Fluid in the disc space with extensive inflammatory changes at L4-5. Fluid/ soft tissue prominence in the anterior epidural space is more prominent and duong s extend superiorly underneath the posterior longitudinal ligament causing mild canal stenosis. Severe bilateral neural foraminal narrowing at this level. 2. Diffuse facet arthropathy. Needle Aspiration CT 08/30/17 1356 Signed Impressions: CONCLUSION: 1. Uncomplicated procedure as above. Lumbar Spine CT 08/29/17 0000 Signed Impressions: CONCLUSION: 1. There is destructive changes involving the disc space at L4-5 characteristi c for discitis. 2. There are destructive changes predominantly in the body of L5 consistent wi th osteomyelitis. There is prominent paraspinal soft tissue swelling at the L4- L5 level. 3. Mild grade 1 anterior spondylolisthesis of L4 over L5. 4. Limited visualization of the spinal canal at L4-5 due to the inflammatory c hanges. 5. Bilateral facet arthritis at multiple levels. 6. Broad-based bulging at L2-3 and L3-4. Chest X-Ray 08/15/17 0000 Signed Impressions: Service Date/Time: Tuesday, August 15, 2017 11:34 - CONCLUSION: Mild compensated cardiomegaly Roly Reina MD FACR Lumbar Puncture Fluoroscopy 08/08/17 0000 Signed Impressions: Service Date/Time: Tuesday, August 08, 2017 15:42 - CONCLUSION: Uncomplicated fluoroscopically guided lumbar puncture. Fady Chan MD Needle Biopsy/Aspiration X-Ray 07/31/17 0000 Signed Impressions: Service Date/Time: Monday, July 31, 2017 13:29 - CONCLUSION: Uncomplicated needle biopsy of the L4/L5 disc space as above. Candelario Reina MD Abdomen/Pelvis CT 07/29/17 0000 Signed Impressions: Service Date/Time: Saturday, July 29, 2017 22:14 - CONCLUSION: 1. Significant new prevertebral soft tissue fullness and stranding centered at the L5 level. There is associated sclerosis and erosive changes in the anterior L5 vertebral body which appear unchanged from recent exams. Overall, findings are concerning for discitis and osteomyelitis. Consider repeat MRI examination for further evaluation. 2. 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 However, evaluation is significantly limited due to lack of IV contrast on this exam. This was not present on remote prior CT exam. A mycotic aneurysm cannot be entirely excluded. Contrast enhanced examination would be greatly beneficial in further evaluation. 3. Nodular appearing liver contour consistent with cirrhosis. 4. IVC filter in place. 5. Cholelithiasis. Tanner Jones MD Objective Remarks GENERAL: This is a well-nourished, well-developed patient, in no apparent distress. CARDIOVASCULAR: Regular rate and regular rhythm without murmurs, gallops, or rubs. RESPIRATORY: Clear to auscultation. Breath sounds equal bilaterally. No wheezes , rales, or rhonchi. GASTROINTESTINAL: Abdomen soft, non-tender, nondistended. Normal, active bowel sounds MUSCULOSKELETAL: Extremities without clubbing, cyanosis, or edema. NEURO: lethargic but arousable. Procedures CT-guided removal of fluid for culture as well as disc biopsy L4-5 on 07/31/17 08/14/17 lateral oblique approach for drainage of lumbar retroperitoneal and bilateral psoas muscle abscess [id number] needle aspiration of psoas muscle abscess. . Medications and IVs Inpatient Medications Acetaminophen (Tylenol) 650 mg Q6H PRN PO FEVER/PAIN SCALE 1 TO 2 Last administered on 08/15/17at 07:38; Start 07/29/17 at 23:15 Albuterol Sulfate (Proair Hfa Inh) 2 puff Q4H PRN INH SHORTNESS OF BREATH; Start 08/14/17 at 20:30 Amlodipine Besylate (Norvasc) 10 mg DAILY PO ; Start 08/15/17 at 09:00; Stop at 14:31; Status DC Bisacodyl (Dulcolax Supp) 10 mg DAILY PRN RECTAL SEVERE CONSITIPATION/ IF NPO ; Start 07/29/17 at 23:15 Calcium Carbonate (Tums Chew) 500 mg Q2H PRN CHEW indigestion Last administered on 09/21/17at 02:49; Start 08/02/17 at 19:30 Cefepime HCl 1000 mg/Sodium Chloride 100 ml @ 200 mls/hr Q12H IV Last administered on 08/01/17at 21:37; Start 07/30/17 at 09:00; Stop 08/02/17 at 06:53; Status DC Ceftriaxone Sodium 2000 mg/ Sodium Chloride 100 ml @ 200 mls/hr Q12H IV Last administered on 09/25/17at 10:18; Start 08/03/17 at 17:00 Clonidine (Catapres) 0.1 mg DAILY PO Last administered on 08/24/17at 07:58; Start 08/15/17 at 09:00; Stop 08/24/17 at 13:35; Status DC Cyclobenzaprine HCl (Flexeril) 5 mg TID PRN PO SPASM Last administered on at 09:52; Start 08/14/17 at 20:30 Dexamethasone Sodium Phosphate (Decadron Inj) 8 mg ONCE ONCE IV PUSH Last administered on 07/29/17at 20:42; Start 07/29/17 at 20:15; Stop 07/29/17 at 20:16 ; Status DC Dextrose/Sodium Chloride 1,000 ml @ 100 mls/hr Q10H IV Last administered on at 23:14; Start 08/25/17 at 11:45; Stop 08/26/17 at 16:28; Status DC Enalaprilat (Vasotec Inj) 2.5 mg Q6H PRN IV PUSH SBP > 165 Last administered on 09/09/17at 00:39; Start 08/06/17 at 11:00 Enoxaparin Sodium (Lovenox Inj) 40 mg Q24H SQ Last administered on 09/24/17at 16 :53; Start 09/02/17 at 16:00 Famotidine (Pepcid) 20 mg BID PO Last administered on 09/25/17at 10:07; Start at 21:00 Gabapentin (Neurontin) 600 mg BID PO Last administered on 09/25/17at 10:06; Start 09/06/17 at 21:00 Hydralazine HCl (Apresoline Inj) 10 mg Q4H PRN IV PUSH SBP > 165; Start at 10:00; Stop 08/06/17 at 11:01; Status DC Hydromorphone HCl (Dilaudid Pf Inj) 0.5 mg Q3H PRN IV PUSH Pain 3-5; if unable to take PO; Start 08/14/17 at 19:30; Stop 08/22/17 at 15:54; Status DC Lactic Acid (Lac-Hydrin 12% Lotion) 1 applic BID TOPICAL Last administered on at 10:09; Start 08/17/17 at 11:00 Lactulose (Lactulose Liq) 30 ml DAILY PRN PO SEVERE CONSITIPATION/ IF PO Last administered on 08/19/17at 13:55; Start 07/29/17 at 23:15 Lorazepam (Ativan Inj) 1 mg Q2H PRN IV PUSH AGITATION/WITHDRAWAL Last administered on 08/14/17at 19:10; Start 07/29/17 at 23:15; Stop 08/24/17 at 13:35 ; Status DC Magnesium Hydroxide (Milk Of Magnesia Liq) 30 ml Q12H PRN PO Mild constipation ; Start 07/29/17 at 23:15 Magnesium Citrate (Citroma Liq) 300 ml ONCE ONCE PO Last administered on at 15:15; Start 08/21/17 at 13:15; Stop 08/21/17 at 13:16; Status DC Metoprolol Tartrate (Lopressor) 12.5 mg Q12HR PO Last administered on at 10:08; Start 09/16/17 at 10:15 Miscellaneous (Pill Splitter) 1 ea UNSCH PRN OTHER SEE LABEL COMMENTS Last administered on 09/18/17at 17:40; Start 09/16/17 at 10:30 Miscellaneous Information ([facility] [place] Nursing Information) ALL NURSING DEPARTME... UNSCH PRN .XX SEE LABEL COMMENTS; Start 08/14/17 at 20:00; Stop 08/15/17 at 19: 59; Status DC Morphine Sulfate (Morphine Inj) 2 mg Q3H PRN IV PUSH Pain 6-10 Last administered on 08/01/17at 01:54; Start 07/30/17 at 20:45; Stop 08/01/17 at 08:56; Status DC Naloxone HCl (Narcan Inj) 0.4 mg UNSCH PRN IV PUSH SEE LABEL COMMENTS; Start at 19:30 Ondansetron HCl (Zofran Inj) 4 mg Q6H PRN IVP NAUSEA OR VOMITING; Start at 23:15 Oxycodone HCl (Roxicodone) 5 mg ONCE ONCE PO Last administered on 07/31/17at 22: 40; Start 07/31/17 at 22:15; Stop 07/31/17 at 22:18; Status DC Oxycodone/ Acetaminophen (Percocet 5-325 Mg) 1 tab Q4HR PRN PO PAIN 4-10 Last administered on 09/25/17at 10:17; Start 08/09/17 at 10:00 Oxycodone/ Acetaminophen (Percocet 10-325 Mg) 1 tab Q4H PRN PO PAIN SCALE 4 TO 10 Last administered on 08/06/17at 05:36; Start 08/01/17 at 09:00; Stop 08/09/17 at 09:39; Status DC Pharmacy Profile Note 0 ml @ 0 mls/hr UNSCH OTHER ; Start 07/29/17 at 23:15; Stop 08/06/17 at 14:40; Status DC Polyethylene Glycol (Miralax) 17 gm DAILY PO Last administered on 09/13/17at 09: 15; Start 08/18/17 at 09:00 Prednisone (Deltasone) 10 mg DAILY PO Last administered on 09/25/17at 10:07; Start 09/24/17 at 09:00 Senna/Docusate Sodium (Emilie-Colace) 1 tab BID PO Last administered on at 10:07; Start 07/30/17 at 09:00 Sennosides (Senokot) 17.2 mg Q12H PRN PO Moderate constipation; Start 07/29/17 at 23:15 Sodium Polystyrene Sulfonate (Kayexalate Liq) 15 gm ONCE ONCE PO Last administered on 09/24/17at 10:00; Start 09/24/17 at 09:30; Stop 09/24/17 at 09:31 ; Status DC Sodium Chloride 250 ml @ 15 mls/hr ONCE ONCE IV Last administered on at 10:17; Start 08/28/17 at 06:15; Stop 08/28/17 at 22:54; Status DC Sodium Chloride (NS Flush) 2 ml BID IV FLUSH Last administered on 09/25/17at 09: 00; Start 07/30/17 at 09:00 Vancomycin HCl 1000 mg/Sodium Chloride 250 ml @ 250 mls/hr ONCE ONCE IV Last administered on 07/30/17at 12:08; Start 07/30/17 at 12:00; Stop 07/30/17 at 12:59 ; Status DC Vancomycin HCl 1500 mg/Sodium Chloride 515 ml @ 257.5 mls/ hr ONCE ONCE IV Last administered on 07/31/17at 18:19; Start 07/31/17 at 18:00; Stop 07/31/17 at 19: 59; Status DC Vancomycin HCl 1750 mg/Sodium Chloride 517.5 ml @ 257.5 mls/ hr ONCE ONCE IV Last administered on 08/06/17at 14:05; Start 08/06/17 at 13:00; Stop 08/06/17 at 14: 40; Status DC Vancomycin HCl 2000 mg/Sodium Chloride 520 ml @ 250 mls/hr ONCE ONCE IV Last administered on 08/02/17at 14:50; Start 08/02/17 at 14:00; Stop 08/02/17 at 16:04; Status DC Vancomycin/Sodium Chloride 200 ml @ 200 mls/hr ONCE ONCE IV Last administered on 07/29/17at 23:55; Start 07/30/17 at 00:00; Stop 07/30/17 at 00:59 ; Status DC Zolpidem Tartrate (Ambien) 5 mg ONCE ONCE PO Last administered on 08/13/17at 01 :45; Start 08/13/17 at 01:45; Stop 08/13/17 at 01:46; Status DC A/P Problem List: (1) Osteomyelitis ICD Code: M86.9 - Osteomyelitis, unspecified Status: Acute (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 Osteomyelitis of the L5 vertebra/bilateral psoas muscle abscess/ bacteremia Status post CT-guided removal of fluid for culture as well as disc biopsy on 07/31. Appreciate neurosurgery, vascular surgery, infectious disease recommendations. Status post drainage of abscess on 08/14/17. Wound culture is negative. Mycobacterial and fungal cultures are negative. Bacteremia with Strep Anginosis. - 08/28 as per neurosurgery recommendations the patient will need at least 6 weeks(around the week of 09/18) of IV antibiotics then follow-up imaging study before consideration for procedure. -MRI ( 09/23) with Fluid in the disc space with extensive inflammatory changes at L4-5. Fluid/ soft tissue prominence in the anterior epidural space is more prominent and does extend superiorly underneath the posterior longitudinal ligament causing mild canal stenosis. Severe bilateral neural foraminal narrowing at this level. - reconsulted neurosurgery; awaiting recommendations. -continue IV Rocephin- -ID following. 2. Encephalopathy Likely toxic secondary to drug abuse. S/P lumbar puncture. Evaluated by psychiatry, patient is capable of making decisions. - resolved. - Avoid overly sedating medications. 3. Cocaine abuse Urine toxicology positive for cocaine. There was concern that the patient may have used cocaine while in the hospital as his urine drug screen was positive 8 days after admission. - cessation instruction. - Visitors allowed again. 4. Right iliac artery aneurysm Patient noted to have a 2.9 cm aneurysm of the right internal iliac artery, possibly mycotic aneurysm. This was an incidental finding. He denies IV drug abuse. Appreciate vascular surgery recommendations. - No surgery planned at this time. 5. Chronic kidney disease stage II with acute kidney injury. mild hyperkalemia received one dose of Kayexalate yesterday. Creatinine seems fairly stable. BMP today pending. - monitor and avoid nephrotoxins. 6. Hypoglycemia- resolved. - ADAT. Continue Ensure. 7. Anemia Seems chronic. Anemia likely multifactorial. Follow-up stool blood Hemoccult. -Hemoglobin stable. 8. Hypertension - continue amlodipine and metoprolol. 9. Sarcoidosis on chronic prednisone. 10. 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 Outpatient follow-up DVT prophylaxis: SCDs and Lovenox subcutaneously. palliative care following. Discharge Planning awaiting neurosurgery recommendations. Mainor Grace MD Sep 25, 2017 10:51
[2017-09-25 11:41] LABS: BICARBONATE 26.3 MEQ/L (21.0-32.0); CALCIUM 8.6 MG/DL (8.5-10.1); CREATININE 1.6 MG/DL (0.60-1.30)
[2017-09-25 12:00] VITALS: BP 110/84; PULSE 83; RESP 19; TEMP 97.6; O2SAT 95
[2017-09-25] MEDS: ENOXAPARIN SODIUM 40 MG/0.4 ML SYRINGE SQ SCH (15:02)
--- NOTE | 2017-09-25 16:52 | HHI.HCPN ---
Reason for visit a. To assist with evaluation and management of symptoms including: Pain, anxiety,debility b. To assist medical decision maker(s) with: better understanding of current medical conditions; weighing benefits/burdens of medical treatment options; making medical treatment decisions. . Subjective/Interval History Follow-up medically necessary for symptom management and further clarification of goals of care. Patient is in his room, watching TV in bed and very frustrated. He wants to speak to neurosurgeon and see if they have anything else to offer regarding his recent lumbar CT results. Patient mentioning that he would rather have medical staff tell him exactly what is going on and whether there are any interventions that can be done. If there is nothing else that can be done for him, he would like to be made aware. Patient expressing frustration from being here for a long time, and he mentions that he has tried to be very patient in following through with everything that medical team has recommended. Patient states that if nothing else can be done for him intervention otherwise, he would prefer to be discharged home with pain medications. Patient mentions that he is not scared of dying and he knows at one-point he will . He mentioned that he has sarcoidosis and knows at some time he will deteriorate from this so he is not scared of . Patient wants to know neurosurgeons` opinion and if he has any surgical intervention to offer , patient is willing to undergo anything that neurosurgeon has to offer and if neurosurgeon feels that there is nothing else that can be done to resolve his problem then he would prefer to be notified, discharged home and "live his life to the fullest until he dies". Introduced hospice philosophy and benefits. Depending on what the neurosurgeon recommends, patient will decide whether he needs to forego aggressive treatment and pursue comfort measures only. Patient mentioned that if neurosurgeon has nothing else to offer him he will consider changing his goals to comfort oriented care only most likely with hospice services. Interim course: * Recent lab work on 09/22/17 revealed WBC 5.0, hemoglobin 9.4, hematocrit 29.3 , platelet count 130, sodium 138, potassium 5.3, BUN/creatinine 40/1.60, random glucose 89, calcium 8.6. * Lumbar spine MRI on 09/23/17 revealed fluid in the disc space with extensive inflammatory changes at L4-5. Fluid/soft tissue prominence in the anterior epidural space is more prominent and does extend superiorly underneath the posterior longitudinal ligament causing mild canal stenosis. Severe bilateral neural foraminal narrowing at this level. Diffuse facet arthropathy patient currently denies pain. Patient currently denies pain. He explains that, pain to lower back is exacerbated with activity, mainly ambulation. Patient mentioned that his feet feel heavy as if he has shoes on. Patient also complaining of wheezing sometimes and he states that at home he gets breathing treatments when he is short of breath and wheezy. Patient is currently on prednisone 10 mg daily. Pain is managed with oxycodone/acetaminophen 5/325 every 4 hours prn. Patient is required 5 prn doses in the past 24 hours, gabapentin 600 mg twice daily and he also his cyclobenzaprine 5 mg 3 times daily prn for spasms. Case discussed with infectious disease Dr. Liz Goldstein. . Family/friend interactions No family at bedside . 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 Health Care Surrogate(s): Healthcare surrogate-Friend- Jennifer Kendrick- [phone] Alternate healthcare surrogate -Son-Kalyan Gee Ae-[phone]/ 3rd choice- If the above-mentioned are not able to serve, patient designated his ex- -Kelly Gee as his second Alternate healthcare surrogate . Documented care wishes: No written documentation of health care goals/preferences . Objective Vital Signs Date Time Temp Pulse Resp B/P (MAP) Pulse Ox O2 Delivery O2 Flow Rate FiO2 09/25/17 12:00 97.6 83 19 110/84 (93) 95 09/25/17 08:00 97.4 91 19 169/96 (120) 95 09/25/17 00:00 97.9 86 18 136/72 (93) 96 09/24/17 20:00 97.3 90 18 118/86 (97) 91 09/24/17 17:02 97.2 58 19 137/91 (106) 95 Intake & Output 09/25/17 09/25/17 07:00 19:00 Intake Total 820 ml Output Total 2000 ml 575 ml Balance -1180 ml -575 ml Intake Oral 720 ml IV Total 100 ml Output Urine Total 2000 ml 575 ml # Bowel Movements 1 Physical Exam CONSTITUTIONAL/GENERAL: This is an adequately nourished patient, in no acute distress, expressing frustration TUBES/LINES/DRAINS:PIV SKIN: Dry. Normothermic. Healed surgical incision. ENT: Hearing grossly normal. No nasal bleeding or drainage noted. Moist oral mucosa CARDIOVASCULAR: S1, S2 normal, no audible murmurs, gallops, or rubs. RESPIRATORY/CHEST: Symmetric, unlabored respirations. Clear to auscultation. GASTROINTESTINAL: Abdomen soft, non-tender. Bowel sounds present. MUSCULOSKELETAL: Extremities without clubbing, cyanosis, or edema. NEUROLOGICAL: Awake, alert and oriented to self, place and situation. Moves all extremities to command. PSYCHIATRIC: No obvious anxiety/depression.Calm. . Diagnostic Tests Laboratory Laboratory Tests Test 09/22/17 23:16 09/24/17 06:14 09/25/17 09:50 Blood Urea Nitrogen 39 MG/DL (7-18) 40 MG/DL (7-18) Creatinine 1.64 MG/DL (0.60-1.30) 1.60 MG/DL (0.60-1.30) Random Glucose 80 MG/DL (74-106) 89 MG/DL (74-106) Calcium Level 8.5 MG/DL (8.5-10.1) 8.6 MG/DL (8.5-10.1) Sodium Level 138 MEQ/L (136-145) 138 MEQ/L (136-145) Potassium Level 5.2 MEQ/L (3.5-5.1) 5.4 MEQ/L (3.5-5.1) 5.3 MEQ/L (3.5-5.1) Chloride Level 105 MEQ/L (98-107) 105 MEQ/L (98-107) Carbon Dioxide Level 22.2 MEQ/L (21.0-32.0) 26.3 MEQ/L (21.0-32.0) Anion Gap 11 MEQ/L (5-15) 7 MEQ/L (5-15) Estimat Glomerular Filtration Rate 53 ML/MIN (>89) 55 ML/MIN (>89) Result Diagram: 09/22/17 0352 09/25/17 0950 Imaging Last 72 hours Impressions Lumbar Spine MRI 09/23/17 0000 Signed Impressions: CONCLUSION: 1. Fluid in the disc space with extensive inflammatory changes at L4-5. Fluid/ soft tissue prominence in the anterior epidural space is more prominent and duong s extend superiorly underneath the posterior longitudinal ligament causing mild canal stenosis. Severe bilateral neural foraminal narrowing at this level. 2. Diffuse facet arthropathy. Procedures 08/08/17 needle biopsy of the L4/L5 disc space/aspiration x-ray 08/14/17-lateral oblique approach for drainage of lumbar retroperitoneal and bilateral psoas muscle abscess by neurosurgery 08/14/17-Retroperitoneal approach to the psoas muscle and drainage of psoas abscess and paraspinal abscess drainage by general surgery 08/30/1799-[id number] needle aspiration of psoas muscle abscess. . Assessment and Plan Disease Oriented Problem List: (1) Osteomyelitis (2) Cocaine abuse (3) Mycotic aneurysm (4) CKD (chronic kidney disease) stage 3, GFR 30-59 ml/min Comment: Improving. . (5) Hypertension (6) Rheumatoid arthritis Symptom Scale: (1) Pain 0-10 Scale: 10 Comment: All his pain complaints are low back. Inadequately helped by current regimen. Pain normally 9-10 decreasing to 8-9 after parenteral hydromorphone. . . (2) Anxiety Comment: Patient reported to psychiatry that he was feeling anxious . (3) Debility Comment: Progressive . Pertinent Non-Medical Issues Psychosocial:Patient was born and raised in [place]. Patient is . Patient's highest level of education is high school. He is currently unemployed and disabled. Patient has 1 son Gerard Biggs Jr. He has been living with his nephew Jennifer Kendrick for the past 4 years. Spiritual: Patient is Alevism Legal: No living will. Health care surrogate designation completed 08/09/17 -- he wants his friend Jennifer Manuel to serve. Ethical issues impacting care: None identified at this time . Important Contacts Mireille Rodriguez (Health care surrogate and close friend) -[phone]/ (he has been living with patient for the past 4 years) Kalyan Gee Jr (son and alternate HCS) - [phone] Cell/[phone] work Kelly Gee (ex- and 2nd alternate HCS) Patricia Joy ( of Jennifer Manuel) [phone] Brother- Miles Gee [phone] PATIENT HAS GIVEN PERMISSION TO DISCUSS DETAILS OF HIS CASE AND CARE WITH THE ABOVE. . . Prognosis Mr. Gee is a 57-year-old male with a past medical history significant for chronic back pain, lumbar osteomyelitis and discitis s/p L4-L5 laminectomy 2014 , rheumatoid arthritis, hyperlipidemia, chronic kidney stage III, cocaine abuse and tobacco abuse. Patient presented to the ER on 07/29/17 with complaints of severe back pain. Diagnostic tests revealed lumbar osteomyelitis with retroperitoneal/prevertebral abscess. Clinical course complicated with pain, anxiety and early recurrence of psoas abscess. Imaging has shown worsening infection over course of hospitalization. Patient underwent lateral oblique approach for drainage of lumbar retroperitoneal and bilateral psoas muscle abscess on 08/14/17. He now requires correction intravenous antibiotic therapy. Last MRI 08/28/17 of lumbar spine showing recurrent psoas abscess. Prognosis appears poor. . Code Status: Full Code Plan PLAN: CODE STATUS: Full code Legal decision maker: Patient has been deemed capacitated to participate in medical decision making by psychiatry on 08/08/17. In the event that he is incapacitated, patient has designated his friend Jennifer Kendrick to serve as his health care surrogate, and his son Gerard Hull Jr as his alternate healthcare surrogate and if the above mentioned are not able to serve, he chose his ex- Kelly Gee as his other alternate Healthcare Surrogate. Goals: Goals remain aggressive. Patient is in his room, watching TV in bed and very frustrated. He wants to speak to neurosurgeon and see if they have anything else to offer regarding his recent lumbar CT results. Patient mentioning that he would rather have medical staff tell him exactly what is going on and whether there are any interventions that can be done. If there is nothing else that can be done for him, he would like to be made aware. Patient expressing frustration from being here for a long time, and he mentions that he has tried to be very patient in following through with everything that medical team has recommended. Patient states that if nothing else can be done for him intervention otherwise, he would prefer to be discharged home with pain medications. Patient mentions that he is not scared of dying and he knows at one-point he will . He mentioned that he has sarcoidosis and knows at some time he will deteriorate from this so he is not scared of . Patient wants to know neurosurgeons` opinion and if he has any surgical intervention to offer, patient is willing to undergo anything that neurosurgeon has to offer and if neurosurgeon feels that there is nothing else that can be done to resolve his problem then he would prefer to be notified, discharged home and "live his life to the fullest until he dies". Introduced hospice philosophy and benefits. Depending on what the neurosurgeon recommends, patient will decide whether he needs to forego aggressive treatment and pursue comfort measures only. Patient mentioned that if neurosurgeon has nothing else to offer him he will consider changing his goals to comfort oriented care only most likely with hospice services. SYMPTOMS: * Pain: Patient complaining of severe lower back pain. Patient had osteomyelitis and is s/p drainage of lumbar retroperitoneal and bilateral psoas muscle abscess 08/14/17.Pain continues to be well managed with Percocet 5/325, gabapentin and Flexeril. Pain medication and muscle relaxant appears adequate. * Anxiety: Patient reported to psychiatry that he feels anxious. Has lorazepam ordered q 2 hours prn. Patient anxious to speak to neurosurgeon regarding his recent lumbar spine MRI. * Debility: Prolonged hospitalization. Physical therapy recommending PT at Rehab. Patient ambulating from bed to bedside commode with a walker. PT and OT following. == Palliative care will continue to follow to assist with symptom management and to further clarify goals of medical treatment as the clinical course evolves. . Attestation To help prompt me to consider important information that might be impacting today's encounter and assessment, information from prior notes written by myself or my colleagues may have been "brought forward" into today's note. My signature on this note, however, is an attestation that I personally performed the exam, history, and/or decision-making noted today, and, unless otherwise indicated, the interactions with patient, family, and staff as well as the review of records all occurred today. I also attest that the listed assessment and stated plan reflect my best clinical judgment today based on the combination of historical information, prior notes, and today's exam/ interactions. When time spent is documented, it refers only to time spent today by the signer, or if indicated, combined time spent today by collaborating physician/nurse practitioner. Erasmo Vieyra Sep 25, 2017 16:52
[2017-09-25 17:45] VITALS: BP 134/90; PULSE 90; RESP 19; TEMP 98; O2SAT 94
[2017-09-25 20:00] VITALS: BP 148/77; PULSE 91; RESP 18; TEMP 97.9; O2SAT 97
[2017-09-25] MEDS ORDERED: OXYC1TAB63 PO (20:49)
[2017-09-25] MEDS ORDERED: PRED10 PO (20:49)
[2017-09-26] VITALS: BP 132/76; PULSE 89; RESP 18; TEMP 97.8; O2SAT 96
[2017-09-26] MEDS: oxyCODONE/ACETAMINOPHEN 5 MG/325 MG TAB PO PRN ×2 (03:46→10:09)
[2017-09-26 08:00] VITALS: BP 145/93; PULSE 86; RESP 17; TEMP 98; O2SAT 95
[2017-09-26] MEDS: LACTIC ACID (AMMONIUM LACTATE) 12% LOTION 225 GM BTL TOPICAL SCH ×2 (09:00→10:09)
[2017-09-26] MEDS: predniSONE 10 MG TAB PO SCH (10:06)
[2017-09-26] MEDS: DOCUSATE SODIUM 50 MG/SENNA 8.6 MG TAB PO SCH (10:06)
[2017-09-26] MEDS: GABAPENTIN 300 MG CAP PO SCH (10:06)
[2017-09-26] MEDS: METOPROLOL TARTRATE 25 MG TAB PO SCH (10:06)
[2017-09-26] MEDS: FAMOTIDINE 20 MG TAB PO SCH (10:06)
[2017-09-26] MEDS: POLYETHYLENE GLYCOL 17 GM PKG PO SCH (10:06)
[2017-09-26] MEDS: SODIUM CHLORIDE 0.9% FLUSH 10 ML FLUSH IV FLUSH SCH (10:07)
[2017-09-26] MEDS: cefTRIAXone INJ 2,000 MG in SODIUM CHLORIDE 0.9% INJ 100 ML IV SCH (10:12)
--- NOTE | 2017-09-26 10:36 | HHI.PR ---
Subjective Remarks in no distress. afebrile. back pain is better today. no new complaints. Objective Vitals Vital Signs Date Time Temp Pulse Resp B/P (MAP) Pulse Ox O2 Delivery O2 Flow Rate FiO2 09/26/17 08:00 98.0 86 17 145/93 (110) 95 09/26/17 00:00 97.8 89 18 132/76 (94) 96 09/25/17 20:00 97.9 91 18 148/77 (100) 97 09/25/17 17:45 98.0 90 19 134/90 (105) 94 09/25/17 12:00 97.6 83 19 110/84 (93) 95 I/O 09/25/17 09/25/17 09/25/17 09/26/17 09/26/17 09/26/17 07:00 15:00 23:00 07:00 15:00 23:00 Intake Total 720 ml 1880 ml 340 ml Output Total 2000 ml 575 ml 1650 ml 600 ml Balance -1280 ml -575 ml 230 ml -260 ml Intake Oral 720 ml 1880 ml 240 ml IV Total 100 ml Output Urine Total 2000 ml 575 ml 1650 ml 600 ml # Bowel Movements 1 1 2 Result Diagram: 09/22/17 0352 09/25/17 0950 Objective Remarks GENERAL: This is a well-nourished, well-developed patient, in no apparent distress. CARDIOVASCULAR: Regular rate and regular rhythm without murmurs, gallops, or rubs. RESPIRATORY: Clear to auscultation. Breath sounds equal bilaterally. No wheezes , rales, or rhonchi. GASTROINTESTINAL: Abdomen soft, non-tender, nondistended. Normal, active bowel sounds MUSCULOSKELETAL: Extremities without clubbing, cyanosis, or edema. NEURO: lethargic but arousable. Procedures CT-guided removal of fluid for culture as well as disc biopsy L4-5 on 07/31/17 08/14/17 lateral oblique approach for drainage of lumbar retroperitoneal and bilateral psoas muscle abscess 08/30/1767-[id number] needle aspiration of psoas muscle abscess. . Medications and IVs Inpatient Medications Acetaminophen (Tylenol) 650 mg Q6H PRN PO FEVER/PAIN SCALE 1 TO 2 Last administered on 08/15/17at 07:38; Start 07/29/17 at 23:15 Albuterol Sulfate (Proair Hfa Inh) 2 puff Q4H PRN INH SHORTNESS OF BREATH; Start 08/14/17 at 20:30 Amlodipine Besylate (Norvasc) 10 mg DAILY PO ; Start 08/15/17 at 09:00; Stop at 14:31; Status DC Bisacodyl (Dulcolax Supp) 10 mg DAILY PRN RECTAL SEVERE CONSITIPATION/ IF NPO ; Start 07/29/17 at 23:15 Calcium Carbonate (Tums Chew) 500 mg Q2H PRN CHEW indigestion Last administered on 09/21/17at 02:49; Start 08/02/17 at 19:30 Cefepime HCl 1000 mg/Sodium Chloride 100 ml @ 200 mls/hr Q12H IV Last administered on 08/01/17at 21:37; Start 07/30/17 at 09:00; Stop 08/02/17 at 06:53; Status DC Ceftriaxone Sodium 2000 mg/ Sodium Chloride 100 ml @ 200 mls/hr Q12H IV Last administered on 09/26/17at 10:12; Start 08/03/17 at 17:00 Clonidine (Catapres) 0.1 mg DAILY PO Last administered on 08/24/17at 07:58; Start 08/15/17 at 09:00; Stop 08/24/17 at 13:35; Status DC Cyclobenzaprine HCl (Flexeril) 5 mg TID PRN PO SPASM Last administered on at 09:52; Start 08/14/17 at 20:30 Dexamethasone Sodium Phosphate (Decadron Inj) 8 mg ONCE ONCE IV PUSH Last administered on 07/29/17at 20:42; Start 07/29/17 at 20:15; Stop 07/29/17 at 20:16 ; Status DC Dextrose/Sodium Chloride 1,000 ml @ 100 mls/hr Q10H IV Last administered on at 23:14; Start 08/25/17 at 11:45; Stop 08/26/17 at 16:28; Status DC Enalaprilat (Vasotec Inj) 2.5 mg Q6H PRN IV PUSH SBP > 165 Last administered on 09/09/17at 00:39; Start 08/06/17 at 11:00 Enoxaparin Sodium (Lovenox Inj) 40 mg Q24H SQ Last administered on 09/25/17 15 :02; Start 09/02/17 at 16:00 Famotidine (Pepcid) 20 mg BID PO Last administered on 09/26/17 10:06; Start at 21:00 Gabapentin (Neurontin) 600 mg BID PO Last administered on 09/26/17 10:06; Start 09/06/17 at 21:00 Hydralazine HCl (Apresoline Inj) 10 mg Q4H PRN IV PUSH SBP > 165; Start at 10:00; Stop 08/06/17 at 11:01; Status DC Hydromorphone HCl (Dilaudid Pf Inj) 0.5 mg Q3H PRN IV PUSH Pain 3-5; if unable to take PO; Start 08/14/17 at 19:30; Stop 08/22/17 at 15:54; Status DC Lactic Acid (Lac-Hydrin 12% Lotion) 1 applic BID TOPICAL Last administered on 10:09; Start 08/17/17 at 11:00 Lactulose (Lactulose Liq) 30 ml DAILY PRN PO SEVERE CONSITIPATION/ IF PO Last administered on 08/19/17 13:55; Start 07/29/17 at 23:15 Lorazepam (Ativan Inj) 1 mg Q2H PRN IV PUSH AGITATION/WITHDRAWAL Last administered on 08/14/17 19:10; Start 07/29/17 at 23:15; Stop 08/24/17 at 13:35 ; Status DC Magnesium Hydroxide (Milk Of Magnesia Liq) 30 ml Q12H PRN PO Mild constipation ; Start 07/29/17 at 23:15 Magnesium Citrate (Citroma Liq) 300 ml ONCE ONCE PO Last administered on 15:15; Start 08/21/17 at 13:15; Stop 08/21/17 at 13:16; Status DC Metoprolol Tartrate (Lopressor) 12.5 mg Q12HR PO Last administered on 10:06; Start 09/16/17 at 10:15 Miscellaneous (Pill Splitter) 1 ea UNSCH PRN OTHER SEE LABEL COMMENTS Last administered on 09/18/17at 17:40; Start 09/16/17 at 10:30 Miscellaneous Information ([facility]) ALL NURSING DEPARTME... UNSCH PRN .XX SEE LABEL COMMENTS; Start 08/14/17 at 20:00; Stop 08/15/17 at 19: 59; Status DC Morphine Sulfate (Morphine Inj) 2 mg Q3H PRN IV PUSH Pain 6-10 Last administered on 08/01/17at 01:54; Start 07/30/17 at 20:45; Stop 08/01/17 at 08:56; Status DC Naloxone HCl (Narcan Inj) 0.4 mg UNSCH PRN IV PUSH SEE LABEL COMMENTS; Start at 19:30 Ondansetron HCl (Zofran Inj) 4 mg Q6H PRN IVP NAUSEA OR VOMITING; Start at 23:15 Oxycodone HCl (Roxicodone) 5 mg ONCE ONCE PO Last administered on 07/31/17at 22: 40; Start 07/31/17 at 22:15; Stop 07/31/17 at 22:18; Status DC Oxycodone/ Acetaminophen (Percocet 5-325 Mg) 1 tab Q4HR PRN PO PAIN 4-10 Last administered on 09/26/17at 10:09; Start 08/09/17 at 10:00 Oxycodone/ Acetaminophen (Percocet 10-325 Mg) 1 tab Q4H PRN PO PAIN SCALE 4 TO 10 Last administered on 08/06/17at 05:36; Start 08/01/17 at 09:00; Stop 08/09/17 at 09:39; Status DC Pharmacy Profile Note 0 ml @ 0 mls/hr UNSCH OTHER ; Start 07/29/17 at 23:15; Stop 08/06/17 at 14:40; Status DC Polyethylene Glycol (Miralax) 17 gm DAILY PO Last administered on 09/26/17at 10: 06; Start 08/18/17 at 09:00 Prednisone (Deltasone) 10 mg DAILY PO Last administered on 09/26/17at 10:06; Start 09/24/17 at 09:00 Senna/Docusate Sodium (Emilie-Colace) 1 tab BID PO Last administered on at 10:06; Start 07/30/17 at 09:00 Sennosides (Senokot) 17.2 mg Q12H PRN PO Moderate constipation; Start 07/29/17 at 23:15 Sodium Polystyrene Sulfonate (Kayexalate Liq) 15 gm ONCE ONCE PO Last administered on 09/24/17at 10:00; Start 09/24/17 at 09:30; Stop 09/24/17 at 09:31 ; Status DC Sodium Chloride 250 ml @ 15 mls/hr ONCE ONCE IV Last administered on at 10:17; Start 08/28/17 at 06:15; Stop 08/28/17 at 22:54; Status DC Sodium Chloride (NS Flush) 2 ml BID IV FLUSH Last administered on 09/26/17at 10: 07; Start 07/30/17 at 09:00 Vancomycin HCl 1000 mg/Sodium Chloride 250 ml @ 250 mls/hr ONCE ONCE IV Last administered on 07/30/17at 12:08; Start 07/30/17 at 12:00; Stop 07/30/17 at 12:59 ; Status DC Vancomycin HCl 1500 mg/Sodium Chloride 515 ml @ 257.5 mls/ hr ONCE ONCE IV Last administered on 07/31/17at 18:19; Start 07/31/17 at 18:00; Stop 07/31/17 at 19: 59; Status DC Vancomycin HCl 1750 mg/Sodium Chloride 517.5 ml @ 257.5 mls/ hr ONCE ONCE IV Last administered on 08/06/17at 14:05; Start 08/06/17 at 13:00; Stop 08/06/17 at 14: 40; Status DC Vancomycin HCl 2000 mg/Sodium Chloride 520 ml @ 250 mls/hr ONCE ONCE IV Last administered on 08/02/17at 14:50; Start 08/02/17 at 14:00; Stop 08/02/17 at 16:04; Status DC Vancomycin/Sodium Chloride 200 ml @ 200 mls/hr ONCE ONCE IV Last administered on 07/29/17at 23:55; Start 07/30/17 at 00:00; Stop 07/30/17 at 00:59 ; Status DC Zolpidem Tartrate (Ambien) 5 mg ONCE ONCE PO Last administered on 08/13/17at 01 :45; Start 08/13/17 at 01:45; Stop 08/13/17 at 01:46; Status DC A/P Problem List: (1) Osteomyelitis ICD Code: M86.9 - Osteomyelitis, unspecified Status: Acute (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 Osteomyelitis of the L5 vertebra/bilateral psoas muscle abscess/ bacteremia Status post CT-guided removal of fluid for culture as well as disc biopsy on 07/31. Appreciate neurosurgery, vascular surgery, infectious disease recommendations. Status post drainage of abscess on 08/14/17. Wound culture is negative. Mycobacterial and fungal cultures are negative. Bacteremia with Strep Anginosis. - 08/28 as per neurosurgery recommendations the patient will need at least 6 weeks(around the week of 09/18) of IV antibiotics then follow-up imaging study before consideration for procedure. -MRI ( 09/23) with Fluid in the disc space with extensive inflammatory changes at L4-5. Fluid/ soft tissue prominence in the anterior epidural space is more prominent and does extend superiorly underneath the posterior longitudinal ligament causing mild canal stenosis. Severe bilateral neural foraminal narrowing at this level. - reconsulted neurosurgery; initially recommended outpatient f/u's- no surgical intervention at this time; case to be reviewed again by neurosurgery. -continue IV Rocephin- -ID following. 2. Encephalopathy Likely toxic secondary to drug abuse. S/P lumbar puncture. Evaluated by psychiatry, patient is capable of making decisions. - resolved. - Avoid overly sedating medications. 3. Cocaine abuse Urine toxicology positive for cocaine. There was concern that the patient may have used cocaine while in the hospital as his urine drug screen was positive 8 days after admission. - cessation instruction. - Visitors allowed again. 4. Right iliac artery aneurysm Patient noted to have a 2.9 cm aneurysm of the right internal iliac artery, possibly mycotic aneurysm. This was an incidental finding. He denies IV drug abuse. Appreciate vascular surgery recommendations. - No surgery planned at this time. 5. Chronic kidney disease stage II with acute kidney injury. mild hyperkalemia - monitor and avoid nephrotoxins. 6. Hypoglycemia- resolved. - ADAT. Continue Ensure. 7. Anemia Seems chronic. Anemia likely multifactorial. Follow-up stool blood Hemoccult. -Hemoglobin stable. 8. Hypertension - continue amlodipine and metoprolol. 9. Sarcoidosis on chronic prednisone. 10. 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 Outpatient follow-up DVT prophylaxis: SCDs and Lovenox subcutaneously. palliative care following. Discharge Planning awaiting final recommendations from neurosurgery/ palliative care. d/w . Problem Qualifiers (1) Osteomyelitis: Qualified Codes: M86.39 - Chronic multifocal osteomyelitis, multiple sites Mainor Grace MD Sep 26, 2017 10:36
[2017-09-26 12:00] VITALS: BP 114/78; PULSE 90; RESP 17; TEMP 98; O2SAT 98
--- NOTE | 2017-09-26 14:31 | HHI.DS ---
Discharge Summary Admission Date Jul 29, 2017 at 23:11 Discharge Date: Sep 26, 2017 Admitting Diagnosis lumbar spine osteomyelitis. 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 - Aneurysm of unspecified site Diagnosis: Secondary (3) Cocaine abuse ICD Code: F14.10 - Cocaine abuse, uncomplicated Diagnosis: Secondary (4) Hyperkalemia ICD Code: E87.5 - Hyperkalemia Diagnosis: Secondary (5) Hyponatremia ICD Code: E87.1 - Hypo-osmolality and hyponatremia Diagnosis: Secondary (6) CKD (chronic kidney disease) stage 3, GFR 30-59 ml/min ICD Code: N18.3 - Chronic kidney disease, stage 3 (moderate) Diagnosis: Secondary Procedures CT-guided removal of fluid for culture as well as disc biopsy L4-5 on 07/31/17 08/14/17 lateral oblique approach for drainage of lumbar retroperitoneal and bilateral psoas muscle abscess [id number] needle aspiration of psoas muscle abscess. . Brief History - From Admission This is a 57-year-old male with a PMH of Rheumatoid Arthritis, HTN, Hyperlipidemia, CKD Stage III, Chronic Back Pain, Cocaine Abuse and Tobacco Abuse who presented to the ER w/ complaints of severe back pain. Pt is very poor historian, unable to provide much information or to quantify pain complaints. States symptoms have been going on for "long time". Recent ER presentation 07/23/17 for similar complaints, MRI L-Spine w/ broad based disc protrusion with facet arthropathy resulting in focal severe central canal and recess stenosis at L4-L5, NxSx consulted at that time w/ recommendation for outpatient follow up w/ Dr. Felipe w/ whom he's seen in the past. Upon further questioning, pt states he had a "blood infection in my spine" in 2012 and underwent surgical intervention. On arrival, BP 125/71, HR 86, O2 sat 100% RA, Afebrile. WBC 20.8. Na 128. K+ 5.5. Creatinine 2.84, previously 2.97 on 07/23. INR 1.1. UA negative for UTI. CT Abdomen/Pelvis with significant new prevertebral soft tissue fullness at L5, concerning for discitis and osteomyelitis, redemonstrated 2.9 cm aneurysm at right internal iliac artery possibly mycotic aneurysm. S/p Vanc/Rocephin in ER. CBC/BMP: 09/22/17 0352 09/25/17 0950 Significant Findings Laboratory Tests Test 09/24/17 06:14 09/25/17 09:50 Potassium Level 5.4 MEQ/L (3.5-5.1) 5.3 MEQ/L (3.5-5.1) Blood Urea Nitrogen 40 MG/DL (7-18) Creatinine 1.60 MG/DL (0.60-1.30) Estimat Glomerular Filtration Rate 55 ML/MIN (>89) Imaging Last Impressions Lumbar Spine MRI 09/23/17 0000 Signed Impressions: CONCLUSION: 1. Fluid in the disc space with extensive inflammatory changes at L4-5. Fluid/ soft tissue prominence in the anterior epidural space is more prominent and duong s extend superiorly underneath the posterior longitudinal ligament causing mild canal stenosis. Severe bilateral neural foraminal narrowing at this level. 2. Diffuse facet arthropathy. Needle Aspiration CT 08/30/17 1356 Signed Impressions: CONCLUSION: 1. Uncomplicated procedure as above. Lumbar Spine CT 08/29/17 0000 Signed Impressions: CONCLUSION: 1. There is destructive changes involving the disc space at L4-5 characteristi c for discitis. 2. There are destructive changes predominantly in the body of L5 consistent wi th osteomyelitis. There is prominent paraspinal soft tissue swelling at the L4- L5 level. 3. Mild grade 1 anterior spondylolisthesis of L4 over L5. 4. Limited visualization of the spinal canal at L4-5 due to the inflammatory c hanges. 5. Bilateral facet arthritis at multiple levels. 6. Broad-based bulging at L2-3 and L3-4. Chest X-Ray 08/15/17 0000 Signed Impressions: Service Date/Time: Tuesday, August 15, 2017 11:34 - CONCLUSION: Mild compensated cardiomegaly Roly Reina MD FACR Lumbar Puncture Fluoroscopy 08/08/17 0000 Signed Impressions: Service Date/Time: Tuesday, August 08, 2017 15:42 - CONCLUSION: Uncomplicated fluoroscopically guided lumbar puncture. Fady Chan MD Needle Biopsy/Aspiration X-Ray 07/31/17 0000 Signed Impressions: Service Date/Time: Monday, July 31, 2017 13:29 - CONCLUSION: Uncomplicated needle biopsy of the L4/L5 disc space as above. Candelario Reina MD Abdomen/Pelvis CT 07/29/17 0000 Signed Impressions: Service Date/Time: Saturday, July 29, 2017 22:14 - CONCLUSION: 1. Significant new prevertebral soft tissue fullness and stranding centered at the L5 level. There is associated sclerosis and erosive changes in the anterior L5 vertebral body which appear unchanged from recent exams. Overall, findings are concerning for discitis and osteomyelitis. Consider repeat MRI examination for further evaluation. 2. 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 However, evaluation is significantly limited due to lack of IV contrast on this exam. This was not present on remote prior CT exam. A mycotic aneurysm cannot be entirely excluded. Contrast enhanced examination would be greatly beneficial in further evaluation. 3. Nodular appearing liver contour consistent with cirrhosis. 4. IVC filter in place. 5. Cholelithiasis. Tanner Jones MD PE at Discharge GENERAL: Awake alert and oriented 3 well-developed well-nourished CARDIOVASCULAR: Regular rate and rhythm. S1-S2 no S3 or S4 RESPIRATORY: No accessory muscle use. Clear to auscultation. Breath sounds equal bilaterally. GASTROINTESTINAL: Abdomen soft, non-tender, nondistended. MUSCULOSKELETAL: Extremities without clubbing, cyanosis, or edema. No obvious deformities. NEUROLOGICAL: Awake and alert. No obvious cranial nerve deficits. Motor grossly within normal limits. 4 out of 5 muscle strength in the arms and legs. Normal speech. Hospital Course 1. Osteomyelitis of the L5 vertebra/bilateral psoas muscle abscess/ bacteremia Status post CT-guided removal of fluid for culture as well as disc biopsy on 07/31. Appreciate neurosurgery, vascular surgery, infectious disease recommendations. Status post drainage of abscess on 08/14/17. Wound culture is negative. Mycobacterial and fungal cultures are negative. Bacteremia with Strep Anginosis. - 08/28 as per neurosurgery recommendations the patient will need at least 6 weeks(around the week of 09/18) of IV antibiotics then follow-up imaging study before consideration for procedure. -MRI ( 09/23) with Fluid in the disc space with extensive inflammatory changes at L4-5. Fluid/ soft tissue prominence in the anterior epidural space is more prominent and does extend superiorly underneath the posterior longitudinal ligament causing mild canal stenosis. Severe bilateral neural foraminal narrowing at this level. - reconsulted neurosurgery; initially recommended outpatient f/u's- no surgical intervention at this time; case to be reviewed again by neurosurgery. -continue IV Rocephin- -ID following. 2. Encephalopathy Likely toxic secondary to drug abuse. S/P lumbar puncture. Evaluated by psychiatry, patient is capable of making decisions. - resolved. - Avoid overly sedating medications. 3. Cocaine abuse Urine toxicology positive for cocaine. There was concern that the patient may have used cocaine while in the hospital as his urine drug screen was positive 8 days after admission. - cessation instruction. - Visitors allowed again. 4. Right iliac artery aneurysm Patient noted to have a 2.9 cm aneurysm of the right internal iliac artery, possibly mycotic aneurysm. This was an incidental finding. He denies IV drug abuse. Appreciate vascular surgery recommendations. - No surgery planned at this time. 5. Chronic kidney disease stage II with acute kidney injury. mild hyperkalemia - monitor and avoid nephrotoxins. 6. Hypoglycemia- resolved. - ADAT. Continue Ensure. 7. Anemia Seems chronic. Anemia likely multifactorial. Follow-up stool blood Hemoccult. -Hemoglobin stable. 8. Hypertension - continue amlodipine and metoprolol. 9. Sarcoidosis on chronic prednisone. 10. 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 Outpatient follow-up Pt Condition on Discharge: Fair Discharge Disposition: Discharge Home (patient signed out against medical advice.) Discharge Time: <= 30 minutes Mainor Grace MD Sep 26, 2017 14:31
== END 2017-09-26 14:37 | disposition left against medical advice (07) | DRG 500 ==
LOC: NEPD 16:58 → NEDA 23:11 → N05B 07-30 00:50 → HPAC 08-14 19:33 → N03B 08-14 21:05 → N07A 08-15 16:07
PROVIDERS: ADMIT Internal Medicine; ATTEND Internal Medicine
PROC: 0SB23ZX Excision of Lumbar Vertebral Disc, Percutaneous Approach, Diagnostic (ICD-10-PCS; 2017-07-31)
PROC: 009U3ZX Drainage of Spinal Canal, Percutaneous Approach, Diagnostic (ICD-10-PCS; 2017-08-08)
PROC: 0K9P0ZX Drainage of Left Hip Muscle, Open Approach, Diagnostic (ICD-10-PCS; 2017-08-14)
PROC: 30233N1 Transfusion of Nonautologous Red Blood Cells into Peripheral Vein, Percutaneous Approach (ICD-10-PCS; 2017-08-28)
PROC: 0K9P3ZX Drainage of Left Hip Muscle, Percutaneous Approach, Diagnostic (ICD-10-PCS; principal; 2017-08-30)
DX: M46.26 Osteomyelitis of vertebra, lumbar region (principal); A41.9 Sepsis, unspecified organism; G92 Toxic encephalopathy; K68.12 Psoas muscle abscess; G03.9 Meningitis, unspecified; N17.9 Acute kidney failure, unspecified; K68.19 Other retroperitoneal abscess; I72.3 Aneurysm of iliac artery; N18.3 Chronic kidney disease, stage 3 (moderate); E87.1 Hypo-osmolality and hyponatremia; E87.5 Hyperkalemia; G89.29 Other chronic pain; B95.5 Unspecified streptococcus as the cause of diseases classified elsewhere; D63.8 Anemia in other chronic diseases classified elsewhere; D86.0 Sarcoidosis of lung; E16.2 Hypoglycemia, unspecified; E78.5 Hyperlipidemia, unspecified; F14.10 Cocaine abuse, uncomplicated; F17.210 Nicotine dependence, cigarettes, uncomplicated; F41.9 Anxiety disorder, unspecified; F43.25 Adjustment disorder with mixed disturbance of emotions and conduct; I12.9 Hypertensive chronic kidney disease with stage 1 through stage 4 chronic kidney disease, or unspecified chronic kidney disease; K21.9 Gastro-esophageal reflux disease without esophagitis; K59.00 Constipation, unspecified; M06.9 Rheumatoid arthritis, unspecified; M43.16 Spondylolisthesis, lumbar region; M48.061 Spinal stenosis, lumbar region without neurogenic claudication; M51.16 Intervertebral disc disorders with radiculopathy, lumbar region; R50.82 Postprocedural fever; T50.905A Adverse effect of unspecified drugs, medicaments and biological substances, initial encounter; R00.0 Tachycardia, unspecified; M46.36 Infection of intervertebral disc (pyogenic), lumbar region; R53.81 Other malaise; Z79.52 Long term (current) use of systemic steroids; Z86.61 Personal history of infections of the central nervous system
CPT/HCPCS: 10160; 36430; 62267; 62270; 71045; 72132; 72148; 72158; 74176; 76937; 77002; 77003; 77012; 80048; 80053; 80074; 80202; 80307; 81001; 82550; 82607; 82728; 82746; 82945; 82948; 83036; 83525; 83540; 83550; 83605; 83735; 84100; 84132; 84157; 84206; 84439; 84443; 84681; 85007; 85014; 85018; 85025; 85027; 85610; 85652; 85730; 86140; 86337; 86703; 86850; 86900; 86901; 86920; 87015; 87040; 87070; 87102; 87116; 87186; 87205; 87206; 87641; 89051; 93005; 93306; 94150; 96374; 96375; 99152; 99153; A9579; G0481; J0131; J0692; J0696; J1100; J1170; J1580; J1650; J2060; J2175; J2250; J2270; J3010; J3370; J7030; J7040; J7042; J7050; J7512; L0484; P9016; Q9967

== ENCOUNTER 2017-10-01 15:44 | Inpatient (IN) ==
--- NOTE | 2017-10-01 20:00 | ED ---
HPI General Chief complaint: Back Pain/Injury Stated complaint: Back Pain Time Seen by Provider: 10/01/17 19:28 Source: patient Limitations: no limitations History of Present Illness HPI narrative: The patient is a 57year old male who presents to the [facility] emergency department with a history of a history of recent admission from July 29 - September 26 for osteomyelitis of the lumbar spine associated with bilateral psoas muscle abscesses. The patient underwent antibiotic treatment for 6 weeks and repeat MRI that continue to be abnormal. Another consultation with the neurosurgeon was requested by the admitting staff, however the patient appears to have left AGAINST MEDICAL ADVICE prior to that being accomplished. He reports today that he left AGAINST MEDICAL ADVICE as he was told that he would need to be on hospice. He reports that he was not ready to hear that. The patient reports that he was discharged home without any pain medication. He has not followed up with the [facility] for his primary care. He reports that he has continued to smoke cocaine for pain relief. He last used on Sunday. The patient presents today with increasing back pain. The patient reports that the pain is in the lower back worse on the left side. He reports that he has been experiencing some loose stools. He reports that he had 4-5 loose stools yesterday. He reports that the stool was light brown in color. He reports that he did have one episode of dark stool last week. He denies having any known fevers or chills. He denies having any nausea or vomiting. He denies having any chest pain, chest pressure, or shortness of breath. He reports having numbness and tingling to bilateral feet which he reports was present in the hospital. He denies having any new weakness, however he does report having stool incontinence yesterday with his loose stool. He denies having any urinary incontinence. On review of systems otherwise, he denies having any cough, congestion, neck pain, chest pain, shortness of breath, abdominal pain, vomiting, urinary symptoms, or other neurologic symptoms. Onset (ago): month(s) Location: back (Low back worse on the left compared to the right) Radiation: non-radiation Severity: severe Severity scale (1-10): 10 Quality: aching Pain Consistency: constant Relieving factors: other (Cocaine use) Associated symptoms: malaise and other (Diarrhea, stool incontinence yesterday) Related Data Allergies Allergy/AdvReac Type Severity Reaction Status Date / Time *MDRO Multi-Drug Resistant AdvReac Unknown Uncoded 07/23/17 22:21 Organism Review of Systems Except as stated in HPI: all other systems reviewed are negative Constitutional Denies fever(s) Eyes Denies change in vision ENT Denies headache(s) and Denies nasal congestion Cardiovascular Denies chest pain Respiratory Denies dyspnea Gastrointestinal Denies abdominal pain, Reports loose stools, Denies nausea and Denies vomiting Genitourinary Denies difficulty urinating Musculoskeletal Reports back pain, Reports myalgias, Reports numbness and Reports tingling Integumentary/Breasts Denies rash Neurologic Denies headache(s), Reports paresthesias and Reports weakness (Generalized weakness) Psychiatric Denies depression Endocrine Denies polyuria Hematologic/Lymphatic Denies easy bruising PMFSH History History Provided By: Patient Medical History Medical History Aneurysm of right internal iliac artery (Acute) Chronic anemia (Acute) Chronic renal insufficiency (Acute) Cocaine use (Acute) Hypertension (Acute) Osteomyelitis of lumbar spine (Acute) Sarcoidosis (Acute) Surgical History Surgical History H/O knee surgery (Acute) Hx of lumbosacral spine surgery (Acute) Social History Social History Substance History: Active Abuse Second Hand Smoke Exposure: Yes Smoking Status: Current every day smoker Tobacco Type: Cigarettes How Often Do You Have a Drink Containing Alcohol: Monthly or less Recent Travel in [facility] within the Last 8 Weeks: No Recent Out of Country Travel within the Last 8 Weeks: No Exam Const General: cooperative [facility] Head: normocephalic and atraumatic Nose: no nasal discharge and no epistaxis Mouth: moist mucous membranes Eyes Sclera: normal sclerae Pupils: PERRL Neck Neck: trachea midline and no JVD Resp Effort & Inspection: no use of accessory muscles Auscultation: clear to auscultation bilaterally Cardio Rate: regular rate Rhythm: regular rhythm Heart Sounds: no murmurs GI Inspection: non-distended Palpation: soft, no hepatosplenomegaly and nontender Back/Spine/Pelvis Back: no CVA tenderness and back tenderness Thoracic/Lumbar Spine: lumbar spinal tenderness Skin General: dry skin (warm) Neuro General: alert and awake Cranial Nerves: CN's II-XI intact bilaterally Speech: speech normal Motor: other (Patient strength in the lower extremities is 4/5 bilaterally. The patient has weakness of flexion of the hips bilaterally. Full strength with flexion of the knees. The patient has 2+ DTRs.) Sensory Exam: other (numbness to bilateral feet) Extrem General: normal to inspection, no clubbing, no cyanosis and no edema Psych Mood: congruent mood Affect: normal affect Judgment: judgment good Course Hospital Course: During the course of the patient's emergency department visit, the patient's history, examination, and differential diagnosis were reviewed with the patient. The patient was placed on a bus monitor with oximetry and frequent blood pressure monitoring. The patient had IV access obtained and blood work sent for analysis. The patient was initially provided normal saline 1 L IV fluid bolus, morphine for pain, Reglan for nausea. The patient was started on broad-spectrum antibiotic to include Zosyn and vancomycin. Reevaluation(s) Reevaluation #1: The patient was reevaluated and reported feeling more comfortable after pain medication administration. He is pending MRI. Time: 22:38 Consultations Consultation #1: The patient's case including history, pertinent physical examination findings, and laboratory studies were discussed with Dr. Parada. It was agreed that the patient would be admitted to the hospitalist service. Time: 22:38 Initial Documented Vital Signs Temperature 97.4 F L 10/01/17 16:00 Pulse Rate 98 H 10/01/17 16:00 Respiratory Rate 16 10/01/17 16:00 Blood Pressure 132/88 10/01/17 16:00 Pulse Oximetry 98 10/01/17 16:00 Last Documented Vital Signs Temperature 97.4 F L 10/01/17 16:00 Pulse Rate 98 H 10/01/17 16:00 Respiratory Rate 16 10/01/17 21:25 Blood Pressure 132/88 10/01/17 16:00 Pulse Oximetry 98 10/01/17 16:00 Medical Decision Making [facility] Narrative Medical decision making narrative: The patients laboratory studies remarkable for a white count of 5.1, hemoglobin 12, platelets 176 with 13.2 monocytes on differential, sedimentation rate is 441, PT 11.8, PTT 26.6, lactic acid is 1.4, troponin I less than 0.02, CPK 481, creatinine is slightly worse than previous values at 2.09, GFR 40, CO2 20.5, C-reactive protein 19.2, BUN 38, AST 64, alk phos 194. Urinalysis shows few mucus trace ketones rare bacteria, culture not indicated. Radiology studies were remarkable for a Chest x-ray that shows no acute abnormality. An MRI of the lumbar spine has been ordered with and without contrast. The patient will be admitted to the hospital for continued evaluation and treatment. A call has been placed out to the hospitalist service for admission. Differential Diagnosis Differential Diagnosis: Osteomyelitis, versus discitis, versus epidural abscess , versus sepsis Medical Records Medical records reviewed: Yes I reviewed the patient's medical records. The patient's electronic medical record was reviewed. The patient was admitted from July 29 - September 26, 2017 with the diagnosis of the lumbar spine osteomy complicated by bilateral psoas muscle abscess that underwent CT-guided needle aspiration. The patient was followed by , the neurosurgeon during his hospitalization. The patient was also evaluated by infectious disease and palliative care. It was recommended that the patient undergo at least 6 weeks of IV antibiotic with follow-up imaging to identify if further procedures were necessary. On September 23 he underwent a an MRI after completing the course of antibiotic. Fluid was noted in the disc space with extensive inflammatory changes at L4-L5 fluid soft tissue prominence in the anterior epidural space is most prominent and does extend superiorly underneath the posterior longitudinal ligament causing mild canal stenosis. Severe bilateral neural foraminal narrowing at that level is also noted. Unfortunately, the patient signed out AGAINST MEDICAL ADVICE prior to repeat consultation with neurosurgery. Lab Data Lab results reviewed: Yes I reviewed the patient's lab results. Result diagrams: 10/01/17 21:00 10/01/17 21:00 Lab Results 10/01/17 10/01/17 10/01/17 Range/Units 21:00 21:00 21:00 WBC (4.0-11.0) th/mm3 RBC (4.50-5.90) mil/mm3 Hgb (13.0-17.0) gm/dL Hct (39.0-51.0) % MCV (80.0-100.0) fL MCH (27.0-34.0) pg MCHC (32.0-36.0) % RDW (11.6-17.2) % Plt Count (150-450) th/mm3 MPV (7.0-11.0) fL Neut % (Auto) (16.0-70.0) % Lymph % (Auto) (9.0-44.0) % Merrick % (Auto) (0.0-8.0) % Eos % (Auto) (0.0-4.0) % Baso % (Auto) (0.0-2.0) % Neut # (Auto) (1.8-7.7) th/mm3 Lymph # (Auto) (1.0-4.8) th/mm3 Merrick # (Auto) (0.0-0.9) th/mm3 Eos # (Auto) (0.0-0.4) th/mm3 Baso # (Auto) (0.0-0.2) th/mm3 WBC Differential Differential Comment ESR 44 H (0-20) mm/hr PT 11.8 H (9.8-11.6) sec INR 1.2 Ratio APTT 26.6 (24.3-30.1) sec Sodium (136-145) meq/L Potassium (3.5-5.1) meq/L Chloride (98-107) meq/L Carbon Dioxide (21.0-32.0) meq/L Anion Gap (5-15) meq/L BUN (7-18) mg/dL Creatinine (0.60-1.30) mg/dL Estimated GFR (>89) mL/min Random Glucose (74-106) mg/dL Lactic Acid (0.4-2.0) mmol/L Calcium (8.5-10.1) mg/dL Magnesium 2.0 (1.5-2.5) mg/dL Total Bilirubin (0.2-1.0) mg/dL AST (15-37) U/L ALT (12-78) U/L Alkaline Phosphatase (45-117) U/L Total Creatine Kinase 481 H (39-308) U/L Troponin I Less than 0.02 L (0.02-0.05) ng/mL C-Reactive Protein 19.20 H (0.00-0.30) mg/dL Total Protein (6.4-8.2) g/dL Albumin (3.4-5.0) g/dL Lipase 378 (73-393) U/L 10/01/17 10/01/17 10/01/17 Range/Units 21:00 21:00 21:05 WBC 5.1 (4.0-11.0) th/mm3 RBC 4.15 L (4.50-5.90) mil/mm3 Hgb 12.0 L (13.0-17.0) gm/dL Hct 36.6 L (39.0-51.0) % MCV 88.2 (80.0-100.0) fL MCH 28.9 (27.0-34.0) pg MCHC 32.8 (32.0-36.0) % RDW 17.2 (11.6-17.2) % Plt Count 176 (150-450) th/mm3 MPV 7.2 (7.0-11.0) fL Neut % (Auto) 62.7 (16.0-70.0) % Lymph % (Auto) 14.1 (9.0-44.0) % Merrick % (Auto) 13.2 H (0.0-8.0) % Eos % (Auto) 9.1 H (0.0-4.0) % Baso % (Auto) 0.9 (0.0-2.0) % Neut # (Auto) 3.2 (1.8-7.7) th/mm3 Lymph # (Auto) 0.7 L (1.0-4.8) th/mm3 Merrick # (Auto) 0.7 (0.0-0.9) th/mm3 Eos # (Auto) 0.5 H (0.0-0.4) th/mm3 Baso # (Auto) 0.0 (0.0-0.2) th/mm3 WBC Differential . Differential Comment Auto diff final ESR (0-20) mm/hr PT (9.8-11.6) sec INR Ratio APTT (24.3-30.1) sec Sodium 134 L (136-145) meq/L Potassium 4.5 (3.5-5.1) meq/L Chloride 101 (98-107) meq/L Carbon Dioxide 20.5 L (21.0-32.0) meq/L Anion Gap 13 (5-15) meq/L BUN 38 H (7-18) mg/dL Creatinine 2.09 H (0.60-1.30) mg/dL Estimated GFR 40 L (>89) mL/min Random Glucose 62 L (74-106) mg/dL Lactic Acid 1.4 (0.4-2.0) mmol/L Calcium 9.4 (8.5-10.1) mg/dL Magnesium (1.5-2.5) mg/dL Total Bilirubin 1.0 (0.2-1.0) mg/dL AST 64 H (15-37) U/L ALT 31 (12-78) U/L Alkaline Phosphatase 194 H (45-117) U/L Total Creatine Kinase (39-308) U/L Troponin I (0.02-0.05) ng/mL C-Reactive Protein (0.00-0.30) mg/dL Total Protein 10.0 H (6.4-8.2) g/dL Albumin 3.4 (3.4-5.0) g/dL Lipase (73-393) U/L Imaging Data Radiologist's impression: ITS Impressions Chest X-Ray 10/01/17 20:01 CONCLUSION: Negative for acute process ECG Data Attestation: I personally reviewed and interpreted this ECG as follows: Prior ECG tracings: available for review Interpretation: The patient had a EKG is done on arrival that she has a heart rate of 95, QRS duration is 161 ms, QTC 453 ms, left bundle branch block is noted. The patient has a prior history of left bundle branch block from reviewing the electronic medical record. Discharge Plan Discharge Disposition Patient Disposition: 30 Still Patient Physicians Team ED Provider: Consuelo Dowling Primary Care Provider: UNKNOWN, Status ED Status: With Doctor
--- NOTE | 2017-10-01 20:22 | XR ---
EXAM DATE: 10/01/2017 8:19 PM EDT AGE/SEX: 57 years / Male INDICATIONS: Fever. CLINICAL DATA: This is the patient's initial encounter. Patient reports that signs and symptoms have been present for 1 day and indicates a pain score of 9/10. MEDICAL/SURGICAL HISTORY: . Rheumatoid arthritis. Renal insufficiency, chronic. Hypertension . Bilateral wrist. Left shoulder. Lumbar I and D. COMPARISON: No prior exams available for comparison. FINDINGS: A single AP view of the chest demonstrates the lungs to be symmetrically aerated without evidence of mass, infiltrate or effusion. The cardiomediastinal contours are unremarkable. Osseous structures a re intact. CONCLUSION: Negative for acute process Electronically signed by: Roly Reina MD 10/01/2017 8:20 PM EDT
[2017-10-01 21:47] LABS: Baso % (Auto) 0.9 % (0.0-2.0); Eos # (Auto) 0.5 th/mm3 (0.0-0.4); Eos % (Auto) 9.1 % (0.0-4.0); Hematocrit 36.6 % (39.0-51.0); Lymph # (Auto) 0.7 th/mm3 (1.0-4.8); Lymph % (Auto) 14.1 % (9.0-44.0); Mean Corpuscular HGB Conc 32.8 % (32.0-36.0); Mean Corpuscular Hemoglobin 28.9 pg (27.0-34.0); Mean Corpuscular Volume 88.2 fL (80.0-100.0); Mean Platelet Volume 7.2 fL (7.0-11.0); Mono # (Auto) 0.7 th/mm3 (0.0-0.9); Mono % (Auto) 13.2 % (0.0-8.0); Neut # (Auto) 3.2 th/mm3 (1.8-7.7); Neut % (Auto) 62.7 % (16.0-70.0); Platelet Count 176 th/mm3 (150-450); Red Blood Count 4.15 mil/mm3 (4.50-5.90); Red Cell Distribution Width 17.2 % (11.6-17.2); White Blood Count 5.1 th/mm3 (4.0-11.0)
[2017-10-01 21:58] LABS: Activated Partial Thrombo Time 26.6 sec (24.3-30.1); INR 1.2 Ratio; Prothrombin Time 11.8 sec (9.8-11.6)
[2017-10-01 22:17] LABS: Alanine Aminotransferase 31 U/L (12-78); Albumin 3.4 g/dL (3.4-5.0); Anion Gap 13 meq/L (5-15); Aspartate Aminotransferase 64 U/L (15-37); Blood Urea Nitrogen 38 mg/dL (7-18); Calcium 9.4 mg/dL (8.5-10.1); Carbon Dioxide 20.5 meq/L (21.0-32.0); Chloride 101 meq/L (98-107); Glomerular Filtration Rate 40 mL/min (>89); Glucose,Random 62 mg/dL (74-106); Potassium 4.5 meq/L (3.5-5.1); Sodium 134 meq/L (136-145)
[2017-10-01 22:18] LABS: Lipase 378 U/L (73-393)
[2017-10-01 22:19] LABS: Alkaline Phosphatase 194 U/L (45-117)
[2017-10-01 22:25] LABS: Creatine Kinase 481 U/L (39-308)
[2017-10-01 22:37] LABS: CKMB Percent 0.9 % (0.0-4.0); Creatine Kinase MB 4.2 ng/mL (0.5-3.6)
[2017-10-01] MEDS ORDERED: Naloxone Inj 0.4 MG/ML Vial IV.PUSH PRN (23:11)
[2017-10-01] MEDS ORDERED: Morphine Inj 4 MG/ML Vial IV.PUSH PRN (23:11)
--- NOTE | 2017-10-01 23:38 | MR ---
EXAM DATE: 10/01/2017 11:27 PM EDT AGE/SEX: 57 years / Male INDICATIONS: Abscess. Epidural abscess CLINICAL DATA: This is the patient's initial encounter. Patient reports that signs and symptoms have been present for 1 week and indicates a pain score of 10/10. MEDICAL/SURGICAL HISTORY: Hypertension. . Left knee and Left shoulder sx. COMPARISON: [facility] [place], MRI LUMBAR SPINE W & W/O CONTRAST, 09/23/2017. . TECHNIQUE: Multiplanar, multisequence MRI of the lumbar spine was performed without contrast. Patie nt was scanned in a sitting position; neutral, flexion, and extension scans were performed in the sa gittal plane. FINDINGS: Comparison is made to MRI lumbar spine with and without contrast performed 09/23/2017 which are demons trated inflammatory change at the L4-5 level, enhancement vertebral endplates and epidural space abou t the L4-5 level, and fluid in the anterior epidural space narrowing the thecal sac. On today's nonco ntrast examination, the findings are similar in appearance with a similar degree of concentric narrow ing of the spinal spinal canal at the L4 and L5 level. The size of the fluid collection in the anteri or epidural space is unchanged. T12-L1: The thecal sac has a normal diameter. No evidence of disc bulge or protrusion. The neural foramina are patent bilaterally. L1-L2: The thecal sac has a normal diameter. No evidence of disc bulge or protrusion. The neural foramina are patent bilaterally. L2-L3: The configuration of the thecal sac is unchanged from prior examination without evidence of central disc bulge or protrusion. This bulge does extend into the neural foramen bilaterally without evidence of neural impingement. Bilateral facet joint hypertrophy.. L3-L4: Narrowing of the thecal sac with AP dimension measuring 6 mm, similar in configuration to pr ior examination. Mild disc bulging into the neural foramen on both sides without neural impingement. L4-L5: Severe spinal stenosis and loss of CSF within the thecal sac, concentric narrowing of the th ecal sac and fluid anterior to the thecal sac at the inferior L4 level, all stable in appearance and severity. 2. 09/23/2017. L5-S1: No evidence of disc bulge or protrusion. The neural foramen remain patent. CONCLUSION: 1. Stable severity to the inflammatory changes at the L4-5 level and severe spinal stenosis, unchang ed from prior MRI with and without contrast performed on 09/23/2017. 2. The narrowing of the thecal sac at the L3-4 levels also stable. Electronically signed by: Jose Napoles MD 10/01/2017 11:37 PM EDT
--- NOTE | 2017-10-02 00:27 | P.HPIM ---
History of Present Illness Primary Care Physician: UNKNOWN Chief Complaint: back pain History of Present Illness: 57-year-old male with history of cocaine abuse, hypertension, with recent admission for which patient was treated for osteomyelitis of the L5 vertebra, bilateral psoas muscle abscess, as well as strep bacteremia. Patient discharged AGAINST MEDICAL ADVICE on 10/26, however returns for gradual worsening of low back pain. Patient reports pain is sharp, constant, worse with movement. Denies any chest pain or shortness of breath. Denies nausea or vomiting. Denies any fevers. Patient says he has been using cocaine for treatment of pain. Recent Surgical history which is unable to be entered through the computer: CT-guided removal of fluid for culture as well as disc biopsy L4-5 on 07/31/17 08/14/17 lateral oblique approach for drainage of lumbar retroperitoneal and bilateral psoas muscle abscess [id number] needle aspiration of psoas muscle abscess. - Inpatient Certification If this patient has been admitted as an Inpatient: I certify that the inpatient services were ordered in accordance with Medicare regulations governing the order. This includes certification that hospital inpatient services are reasonable and necessary and in the case of services not specified as inpatient-only under 42 CFR 419.22(n), that they are appropriately provided as inpatient services in accordance to with the 2-midnight benchmark under 43 CFR 412.3(e) Estimated Total Length of Stay (Days): 2 Plans for Post Hospital Care: Home Review of Systems All other systems reviewed negative except as stated in HPI [facility] - History History Provided By: Patient - Medical History Medical History: Medical History (Last Updated 10/02/17 @ 00:20 by Romel Parada MD) History of drainage of abscess Aneurysm of right internal iliac artery Chronic anemia Chronic renal insufficiency Cocaine use Hypertension Osteomyelitis of lumbar spine Sarcoidosis - Surgical History Surgical History: Surgical History (Last Reviewed 10/02/17 @ 00:16 by Romel Parada MD) H/O knee surgery Hx of lumbosacral spine surgery - Family History Family History: Family History (Last Updated 10/02/17 @ 00:14 by Romel Parada MD) Mother Asthma Diabetes mellitus Kidney disease Father CVA (cerebral vascular accident) Brother Diabetes mellitus Seizure Sister Diabetes mellitus Other Atrial fibrillation - Tobacco History Second Hand Smoke Exposure: Yes Tobacco Use In Past 30 Days: Yes Smoking Status: Current every day smoker Tobacco Type: Cigarettes - Alcohol History How Often Do You Have a Drink Containing Alcohol: Monthly or less - Substance Use History Substance History: Active Abuse - Travel History Recent Travel in the [place] Within the Last 8 Weeks: No Recent Travel Out of the Country Within the Last 8 Weeks: No - Immunization History Tetanus Immunization: <5 Years Medications and Allergies Active Medications: Active Medications Hydrocodone Bitart/Acetaminophen ([place] 7.5/325) 1 tab PO Q4H PRN PRN Reason: PAIN SCALE 6 TO 10 Hydrocodone Bitart/Acetaminophen ([place] 5/325) 1 tab PO Q4H PRN PRN Reason: PAIN SCALE 3 TO 5 Ceftriaxone Sodium 2,000 mg/ (Sodium Chloride) 100 mls @ 200 mls/hr IV.SIG Q12H [facility] Last Admin: 10/01/17 23:53 Dose: 200 mls/hr Morphine Sulfate (Morphine Inj) 4 mg IV.PUSH Q3H PRN PRN Reason: BREAKTHROUGH PAIN Naloxone HCl (Narcan Inj) 0.4 mg IV.PUSH UNSCH PRN PRN Reason: SEE LABEL COMMENTS Allergies Allergy/AdvReac Type Severity Reaction Status Date / Time No Known Drug Allergies Allergy none Verified 10/02/17 00:08 *MDRO Multi-Drug Resistant AdvReac Unknown mrsa Uncoded 10/02/17 00:08 Organism Home Medications Medication Instructions Recorded Confirmed Type Unable to Obtain Home Meds 10/01/17 10/01/17 History Exam Vital signs: Vital Signs 10/01/17 16:00 10/01/17 20:40 10/01/17 21:25 Temperature 97.4 F L Pulse Rate 98 H 95 H Respiratory Rate 16 16 Blood Pressure 132/88 Pulse Oximetry 98 Intake & Output 10/01/17 10/01/17 10/02/17 06:59 18:59 06:59 Weight 116.12 kg Narrative: GENERAL: Patient lying in bed. Sleeping, wakes up for exam. He is oriented 3. SKIN: Warm and dry. HEAD: Atraumatic. Normocephalic. EYES: Pupils equal and round. No scleral icterus. No injection or drainage. ENT: No nasal bleeding or discharge. Mucous membranes pink and moist. NECK: Trachea midline. No JVD. CARDIOVASCULAR: Regular rate and rhythm. RESPIRATORY: No accessory muscle use. Clear to auscultation. Breath sounds equal bilaterally. GASTROINTESTINAL: Abdomen soft, non-tender, nondistended. Hepatic and splenic margins not palpable. MUSCULOSKELETAL: Extremities without clubbing, cyanosis, or edema. No obvious deformities. NEUROLOGICAL: Awake and alert. No obvious cranial nerve deficits. Motor grossly within normal limits. Five out of 5 muscle strength in the arms and legs. Normal speech. Abdominal/flank surgical scar is well-healed. PSYCHIATRIC: Appropriate mood and affect; insight and judgment normal. Results - Labs CBC & Chem 7: 10/01/17 21:00 10/01/17 21:00 Labs: Short CBC 10/01/17 Range/Units 21:00 WBC 5.1 (4.0-11.0) th/mm3 Hgb 12.0 L (13.0-17.0) gm/dL Hct 36.6 L (39.0-51.0) % Plt Count 176 (150-450) th/mm3 BMP 10/01/17 21:00 Sodium 134 L Potassium 4.5 Chloride 101 Carbon Dioxide 20.5 L BUN 38 H Creatinine 2.09 H Calcium 9.4 Cardiac Enzymes 10/01/17 Range/Units 21:00 Total Creatine Kinase 481 H (39-308) U/L CK-MB (CK-2) 4.2 H (0.5-3.6) ng/mL Troponin I Less than 0.02 L (0.02-0.05) ng/mL Liver Function 10/01/17 Range/Units 21:00 Total Bilirubin 1.0 (0.2-1.0) mg/dL AST 64 H (15-37) U/L ALT 31 (12-78) U/L Alkaline Phosphatase 194 H (45-117) U/L Albumin 3.4 (3.4-5.0) g/dL - Imaging Impressions Chest X-Ray 10/01/17 20:01 CONCLUSION: Negative for acute process Lumbar Spine MRI 10/01/17 21:46 CONCLUSION: 1. Stable severity to the inflammatory changes at the L4-5 level and severe spinal stenosis, unchanged from prior MRI with and without contrast performed on 09/23/2017. 2. The narrowing of the thecal sac at the L3-4 levels also stable. Caprini VTE Risk Assessment Caprini VTE Risk Assessment: No/Low Risk (score <= 1) Caprini Risk Assessment Model: Point Value = 1 Point Value = 2 Point Value = 3 Point Value = 5 Age 41-60 Minor surgery BMI > 25 kg/m2 Swollen legs Varicose veins or History of unexplained or recurrent spontaneous Oral contraceptives or hormone replacement Sepsis (< 1 month) Serious lung disease, including pneumonia (< 1 month) Abnormal pulmonary function Acute myocardial infarction Congestive heart failure (< 1 month) History of inflammatory bowel disease Medical patient at bed rest Age 61-74 Arthroscopic surgery Major open surgery (> 45 min) Laparoscopic surgery (> 45 min) Malignancy Confined to bed (> 72 hours) Immobilizing plaster cast Central venous access Age >= 75 History of VTE Family history of VTE Factor V Leiden Prothrombin [id number] Lupus anticoagulant Anticardiolipin antibodies Elevated serum homocysteine Heparin-induced thrombocytopenia Other congenital or acquired thrombophilia Stroke (< 1 month) Elective arthroplasty Hip, pelvis, or leg fracture Acute spinal cord injury (< 1 month) Prophylaxis Regimen: Total Risk Factor Score Risk Level Prophylaxis Regimen 0-1 Low Early ambulation 2 Moderate Order ONE of the following: *Sequential Compression Device (SCD) *Heparin 5000 units SQ BID 3-4 Higher Order ONE of the following medications: *Heparin 5000 units SQ TID *Enoxaparin/Lovenox 40 mg SQ daily (WT < 150 kg, CrCl > 30 mL/min) *Enoxaparin/Lovenox 30 mg SQ daily (WT < 150 kg, CrCl > 10-29 mL/min) *Enoxaparin/Lovenox 30 mg SQ BID (WT < 150 kg, CrCl > 30 mL/min) AND/OR *Sequential Compression Device (SCD) 5 or more Highest Order ONE of the following medications: *Heparin 5000 units SQ TID (Preferred with Epidurals) *Enoxaparin/Lovenox 40 mg SQ daily (WT < 150 kg, CrCl > 30 mL/min) *Enoxaparin/Lovenox 30 mg SQ daily (WT < 150 kg, CrCl > 10-29 mL/min) *Enoxaparin/Lovenox 30 mg SQ BID (WT < 150 kg, CrCl > 30 mL/min) AND *Sequential Compression Device (SCD) Assessment and Plan - Plan //Intractable back pain // Osteomyelitis of the L5 vertebra/bilateral psoas muscle abscess/ bacteremia = Previously followed by neurosurgery, vascular surgery, infectious disease. Patient left AMA on 09/26. = Narcotics as needed for back pain, with IV morphine for breakthrough pain = We will restart on ceftriaxone, consult ID, neurosurgery. 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 No surgery was planned at that time.. //DINO on chronic kidney disease stage II . = Slight worsening of creatinine to 2.1 from 1.6 at last hospital discharge. Gentle hydration. Avoid nephrotoxins //Anemia hg 12.0. Better than baseline. // Hypertension. Chronic. = Blood pressure acceptable. Continue to monitor. // Sarcoidosis on chronic prednisone. Chronic. // Cocaine abuse Patient counseled on cessation. 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 Outpatient follow-up //DVT prophylaxis. scd Discussed Condition With: Patient, nurse, ED physician
[2017-10-02 08:27] LABS: Bilirubin,Urine Negative (Negative); Clarity,Urine Hazy (Clear); Color,Urine Yellow (Yellw/Straw); Glucose,Urine (UA) Negative (Negative); Hyaline Casts,Urine 7 /lpf (0-3); Leukocyte Esterase,Urine Negative (Negative); Mucus,Urine Few /lpf (Occasional); Nitrite,Urine Negative (Negative); Specific Gravity,Urine 1.015 (1.002-1.035)
[2017-10-02] MEDS ORDERED: Dextrose 50% in Water 50 ML Vial IV.PUSH PRN (11:52)
[2017-10-02] MEDS ORDERED: Dextrose 50% in Water 50 ML Vial ONE (11:54)
--- NOTE | 2017-10-02 12:06 | ECG ---
Date Performed: 10/01/2017 Time Performed: 20:40:16 PTAGE: 57 years EKG: Sinus rhythm LEFT ATRIAL ENLARGEMENT LEFT BUNDLE BRANCH BLOCK ABNORMAL ECG PREVIOUS TRACING : 08/15/2017 07.35 Since the previous tracing, no significant change noted DOCTOR: Ramesh Dowling Interpretating Date/Time 10/02/2017 12:04:42
--- NOTE | 2017-10-02 12:42 | P.PNADD ---
Addendum to Inpatient Note Reason for Addendum: Additional Documentation Additional information: Pt seen earlier this morning. Denied any CP/SOB/n/v commented that he was tired. //Intractable back pain // Osteomyelitis of the L5 vertebra/bilateral psoas muscle abscess/ bacteremia = Previously followed by neurosurgery, vascular surgery, infectious disease. Patient left AMA on 09/26. = Narcotics as needed for back pain, with IV morphine for breakthrough pain = on ceftriaxone, consult ID, neurosurgery. 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 No surgery was planned at that time.. //DINO on chronic kidney disease stage II . = Slight worsening of creatinine to 2.09 from 1.6 at last hospital discharge. Gentle hydration. Avoid nephrotoxins. Repeat BMP tomorrow. //Hypoglycemic: RN notified me that pt's BS was in the 50's however he is asymptomatic. Will start him instead on D5NS w Kcl @125ml/hr. monitor closely. //Anemia hg 12.0. Better than baseline. // Hypertension. Chronic. = Blood pressure acceptable. Continue to monitor. // Sarcoidosis on chronic prednisone. Chronic. // Cocaine abuse Patient counseled on cessation. 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 Outpatient follow-up //DVT prophylaxis. scd
[2017-10-02] MEDS: Potassium Chloride Inj 10 MEQ in Dextrose 5%/NaCl 0.9% Inj 1,000 ML IV.CONT SCH ×3 (12:45→23:30)
[2017-10-02 16:25] LABS: Eos # (Auto) 0.5 th/mm3 (0.0-0.4); Eos % (Auto) 10.9 % (0.0-4.0); Hematocrit 34.5 % (39.0-51.0); Hemoglobin 11.4 gm/dL (13.0-17.0); Lymph # (Auto) 0.9 th/mm3 (1.0-4.8); Lymph % (Auto) 19.5 % (9.0-44.0); Mean Corpuscular HGB Conc 32.9 % (32.0-36.0); Mean Corpuscular Hemoglobin 29.3 pg (27.0-34.0); Mean Corpuscular Volume 89.1 fL (80.0-100.0); Mean Platelet Volume 7.5 fL (7.0-11.0); Mono # (Auto) 0.8 th/mm3 (0.0-0.9); Mono % (Auto) 16.6 % (0.0-8.0); Neut # (Auto) 2.5 th/mm3 (1.8-7.7); Platelet Count 168 th/mm3 (150-450); Red Blood Count 3.87 mil/mm3 (4.50-5.90); Red Cell Distribution Width 17.2 % (11.6-17.2); White Blood Count 4.8 th/mm3 (4.0-11.0)
[2017-10-02 17:07] LABS: Calcium 9.1 mg/dL (8.5-10.1); Carbon Dioxide 19.7 meq/L (21.0-32.0); Potassium 4.5 meq/L (3.5-5.1)
--- NOTE | 2017-10-02 17:39 | P.CONID ---
History of Present Illness Service: Infectious disease Consult date: 10/02/17 Requesting Physician: Romel Parada Reason for Consult: Evaluation and management of persistent epidural abscess lumbar spine Primary Care Provider: UNKNOWN Chief Complaint: back pain History of Present Illness: Mr. Gee is a 57-year-old -[place] male with past medical history significant for IV drug abuse, history of osteomyelitis of the L5 vertebra with bilateral psoas muscle abscesses status post surgical drainage. Patient also had an aneurysm and was evaluated by Dr. Sanchez. Blood cultures from that admission grew strep vaginosis and patient was treated with ceftriaxone IV every 12 for almost 10 weeks in total. Patient also underwent a repeat MRI which showed persistent fluid collection and then this was drained by interventional radiology. The cultures from interventional radiology guided drainage were negative. Patient continued to receive IV antibiotics with the hopes that the drainage would help reduce the size of these abscesses. Patient was followed by Dr. Pineda of neurosurgery on several occasions and it was determined that there was no immediate need for surgical intervention and that the patient could have a repeat MRI as outpatient to decide if ultimate surgery needed. 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 Due to his ongoing IV drug abuse while in the hospital there was concern with discharging him outpatient and therefore he finished his 10+ week course of IV ceftriaxone every 12 within the hospital. Patient was undergoing physical therapy and was able to walk around in the room with the help of walker. Patient signed off AMA on October 26 and now returns to the hospital due to persistent back pain. Patient admits to doing cocaine but denies any IV drug abuse although is clearly unreliable based on my experiences with him during his hospitalization when he was found with drug paraphernalia. Patient underwent CT-guided fluid drainage for culture as well as this biopsy on L4-L5 on July 31, 2017. Patient underwent lateral oblique approach for drainage of lumbar retroperitoneal and bilateral psoas muscle abscess on August 14, 2017. Patient underwent CT-guided needle aspiration of the psoas muscle abscess again on August 30, 2017. Patient underwent blood cultures x2 on this admission and so far the blood cultures are negative. Patient underwent a repeat MRI which showed persistent changes in the spine. Infectious diseases consulted for evaluation and management of L5 osteomyelitis of the spine. Review of Systems All other systems reviewed negative except as stated in HPI [facility] - History History Provided By: Patient - Medical History Medical History: Medical History (Last Updated 10/02/17 @ 00:20 by Romel Parada MD) History of drainage of abscess Aneurysm of right internal iliac artery Chronic anemia Chronic renal insufficiency Cocaine use Hypertension Osteomyelitis of lumbar spine Sarcoidosis - Surgical History Surgical History: Surgical History (Last Reviewed 10/02/17 @ 00:16 by Romel Parada MD) H/O knee surgery Hx of lumbosacral spine surgery - Family History Family History: Family History (Last Updated 10/02/17 @ 00:14 by Romel Parada MD) Mother Asthma Diabetes mellitus Kidney disease Father CVA (cerebral vascular accident) Brother Diabetes mellitus Seizure Sister Diabetes mellitus Other Atrial fibrillation - Tobacco History Second Hand Smoke Exposure: Yes Tobacco Use In Past 30 Days: Yes Smoking Status: Refused to answer Tobacco Type: Cigarettes - Alcohol History How Often Do You Have a Drink Containing Alcohol: Never - Substance Use History Substance History: Active Abuse - Substance Use Type Crack/Cocaine Status: Active Reason for Use: Feels Good Comment: last used sunday09/28/17 - Travel History Recent Travel in the [place] Within the Last 8 Weeks: No Recent Travel Out of the Country Within the Last 8 Weeks: No - Immunization History Tetanus Immunization: Unable to Assess Hx Influenza Vaccine This Season: Unable to Assess Medications and Allergies Active Medications: Active Medications Hydrocodone Bitart/Acetaminophen ([place] 7.5/325) 1 tab PO Q4H PRN PRN Reason: PAIN SCALE 6 TO 10 Last Admin: 10/02/17 12:24 Dose: 1 tab Hydrocodone Bitart/Acetaminophen ([place] 5/325) 1 tab PO Q4H PRN PRN Reason: PAIN SCALE 3 TO 5 Dextrose (D50w Vial) 50 ml IV.PUSH UNSCH PRN PRN Reason: PER HYPOGLYCEMIA PROTOCOL Last Admin: 10/02/17 12:10 Dose: 50 ml Glucagon (Glucagon Inj) 1 mg OTHER PRN PRN PRN Reason: for Hypoglycemia Protocol Ceftriaxone Sodium 2,000 mg/ (Sodium Chloride) 100 mls @ 200 mls/hr IV.SIG Q12H [facility] Last Infusion: 10/02/17 12:42 Dose: Infused Potassium Chloride 10 meq/ (Dextrose/Sodium Chloride) 1,005 mls @ 125 mls/hr IV.CONT .Q8H3M [facility] Last Admin: 10/02/17 12:45 Dose: 125 mls/hr Morphine Sulfate (Morphine Inj) 4 mg IV.PUSH Q3H PRN PRN Reason: BREAKTHROUGH PAIN Naloxone HCl (Narcan Inj) 0.4 mg IV.PUSH UNSCH PRN PRN Reason: SEE LABEL COMMENTS Allergies Allergy/AdvReac Type Severity Reaction Status Date / Time No Known Drug Allergies Allergy none Verified 10/02/17 00:08 *MDRO Multi-Drug Resistant AdvReac Unknown mrsa Uncoded 10/02/17 00:08 Organism Home Medications Medication Instructions Recorded Confirmed Type Unable to Obtain Home Meds 10/01/17 10/01/17 History Exam Vital signs: Vital Signs 10/01/17 20:40 10/01/17 21:25 10/02/17 00:00 Temperature 98.4 F Pulse Rate 95 H 96 H Respiratory Rate 16 17 Blood Pressure 107/73 Pulse Oximetry 94 L 10/02/17 01:57 10/02/17 03:40 10/02/17 07:51 Temperature 98.2 F 97.9 F Pulse Rate 99 H 99 H Respiratory Rate 18 17 18 Blood Pressure 124/85 143/92 H Pulse Oximetry 96 95 10/02/17 12:00 10/02/17 13:02 10/02/17 13:31 Temperature 97.8 F 98.7 F 98.0 F Pulse Rate 95 H 62 Respiratory Rate 16 18 18 Blood Pressure 103/73 143/89 H 140/71 Pulse Oximetry 97 98 98 10/02/17 16:00 Temperature 98.8 F Pulse Rate 89 Respiratory Rate 18 Blood Pressure 122/65 Pulse Oximetry 100 Intake & Output 10/01/17 10/02/17 10/02/17 18:59 06:59 18:59 Intake Total 100 / 100 100 / 100 Output Total 300 / 300 Balance 100 / 100 -200 / -200 Weight 116.12 kg Intake: IV 100 / 100 100 / 100 Rocephin Inj 2,000 MG In NS Inj 100 / 100 100 / 100 100 ML @ 200 mls/hr IV.SIG Q12H [facility] Rx#:[id number] Output: Urine 300 / 300 Other: Date of Last Bowel Movement 10/01/17 - Constitutional no acute distress, obese - Routine HEENT Exam Head: Present: normocephalic Eye: Present: EOMI, PERRL ENT: Present: mucous membranes moist - Routine Neck Exam Present: supple, full ROM - Routine Respiratory Exam Present: CTA bilaterally - Routine Cardiovascular Exam Present: RRR, S1, S2 - Routine Abdominal Exam Present: soft, normoactive bowel sounds - Routine Extremities Exam Absent: cyanosis, clubbing, edema - Routine Skin Exam Present: intact - Routine Psychiatric Exam Present: cooperative Results - Labs CBC & Chem 7: 10/02/17 15:45 10/02/17 15:45 Labs: Laboratory Results - last 24 hr 10/01/17 10/01/17 10/01/17 21:00 21:00 21:00 WBC RBC Hgb Hct MCV MCH MCHC RDW Plt Count MPV Neut % (Auto) Lymph % (Auto) Rogers % (Auto) Eos % (Auto) Baso % (Auto) Neut # (Auto) Lymph # (Auto) Rogers # (Auto) Eos # (Auto) Baso # (Auto) WBC Differential Differential Comment ESR 44 H PT 11.8 H INR 1.2 APTT 26.6 Sodium Potassium Chloride Carbon Dioxide Anion Gap BUN Creatinine Estimated GFR POC Glucose Random Glucose Lactic Acid Calcium Magnesium 2.0 Total Bilirubin AST ALT Alkaline Phosphatase Total Creatine Kinase 481 H CK-MB (CK-2) 4.2 H CK-MB (CK-2) % 0.9 Troponin I Less than 0.02 L C-Reactive Protein 19.20 H Total Protein Albumin Lipase 378 Urine Color Urine Clarity Urine pH Ur Specific [place] Urine Protein Urine Glucose (UA) Urine Ketones Urine Occult Blood Urine Nitrate Urine Bilirubin Urine Urobilinogen Ur Leukocyte Esterase Urine RBC Urine WBC Hyaline Casts Urine Mucus Micro UA Comment Urine Culture Comments 10/01/17 10/01/17 10/01/17 21:00 21:00 21:05 WBC 5.1 RBC 4.15 L Hgb 12.0 L Hct 36.6 L MCV 88.2 MCH 28.9 MCHC 32.8 RDW 17.2 Plt Count 176 MPV 7.2 Neut % (Auto) 62.7 Lymph % (Auto) 14.1 Rogers % (Auto) 13.2 H Eos % (Auto) 9.1 H Baso % (Auto) 0.9 Neut # (Auto) 3.2 Lymph # (Auto) 0.7 L Rogers # (Auto) 0.7 Eos # (Auto) 0.5 H Baso # (Auto) 0.0 WBC Differential . Differential Comment Auto diff final ESR PT INR APTT Sodium 134 L Potassium 4.5 Chloride 101 Carbon Dioxide 20.5 L Anion Gap 13 BUN 38 H Creatinine 2.09 H Estimated GFR 40 L POC Glucose Random Glucose 62 L Lactic Acid 1.4 Calcium 9.4 Magnesium Total Bilirubin 1.0 AST 64 H ALT 31 Alkaline Phosphatase 194 H Total Creatine Kinase CK-MB (CK-2) CK-MB (CK-2) % Troponin I C-Reactive Protein Total Protein 10.0 H Albumin 3.4 Lipase Urine Color Urine Clarity Urine pH Ur Specific [place] Urine Protein Urine Glucose (UA) Urine Ketones Urine Occult Blood Urine Nitrate Urine Bilirubin Urine Urobilinogen Ur Leukocyte Esterase Urine RBC Urine WBC Hyaline Casts Urine Mucus Micro UA Comment Urine Culture Comments 10/02/17 10/02/17 10/02/17 07:50 11:46 12:19 WBC RBC Hgb Hct MCV MCH MCHC RDW Plt Count MPV Neut % (Auto) Lymph % (Auto) Rogers % (Auto) Eos % (Auto) Baso % (Auto) Neut # (Auto) Lymph # (Auto) Rogers # (Auto) Eos # (Auto) Baso # (Auto) WBC Differential Differential Comment ESR PT INR APTT Sodium Potassium Chloride Carbon Dioxide Anion Gap BUN Creatinine Estimated GFR POC Glucose 54 L 191 H Random Glucose Lactic Acid Calcium Magnesium Total Bilirubin AST ALT Alkaline Phosphatase Total Creatine Kinase CK-MB (CK-2) CK-MB (CK-2) % Troponin I C-Reactive Protein Total Protein Albumin Lipase Urine Color Yellow Urine Clarity Hazy H Urine pH 6.0 Ur Specific [place] 1.015 Urine Protein Negative Urine Glucose (UA) Negative Urine Ketones Trace Urine Occult Blood Negative Urine Nitrate Negative Urine Bilirubin Negative Urine Urobilinogen 2.0 H Ur Leukocyte Esterase Negative Urine RBC 1 Urine WBC 2 Hyaline Casts 7 Urine Mucus Few H Micro UA Comment Culture not ind Urine Culture Comments Culture not ind 10/02/17 10/02/17 10/02/17 13:11 15:45 15:45 WBC 4.8 RBC 3.87 L Hgb 11.4 L Hct 34.5 L MCV 89.1 MCH 29.3 MCHC 32.9 RDW 17.2 Plt Count 168 MPV 7.5 Neut % (Auto) 52.0 Lymph % (Auto) 19.5 Rogers % (Auto) 16.6 H Eos % (Auto) 10.9 H Baso % (Auto) 1.0 Neut # (Auto) 2.5 Lymph # (Auto) 0.9 L [place] # (Auto) 0.8 Eos # (Auto) 0.5 H Baso # (Auto) 0.0 WBC Differential . Differential Comment Auto diff final ESR PT INR APTT Sodium 136 Potassium 4.5 Chloride 104 Carbon Dioxide 19.7 L Anion Gap 12 BUN 42 H Creatinine 2.54 H Estimated GFR 32 L POC Glucose Random Glucose 84 75 Lactic Acid Calcium 9.1 Magnesium Total Bilirubin AST ALT Alkaline Phosphatase Total Creatine Kinase CK-MB (CK-2) CK-MB (CK-2) % Troponin I C-Reactive Protein Total Protein Albumin Lipase Urine Color Urine Clarity Urine pH Ur Specific [place] Urine Protein Urine Glucose (UA) Urine Ketones Urine Occult Blood Urine Nitrate Urine Bilirubin Urine Urobilinogen Ur Leukocyte Esterase Urine RBC Urine WBC Hyaline Casts Urine Mucus Micro UA Comment Urine Culture Comments - Imaging Impressions Chest X-Ray 10/01/17 20:01 CONCLUSION: Negative for acute process Lumbar Spine MRI 10/01/17 21:46 CONCLUSION: 1. Stable severity to the inflammatory changes at the L4-5 level and severe spinal stenosis, unchanged from prior MRI with and without contrast performed on 09/23/2017. 2. The narrowing of the thecal sac at the L3-4 levels also stable. Assessment and Plan - Plan L5 osteomyelitis Bilateral psoas muscle abscess status post drainage Epidural abscess Strep angionosis bacteremia IV drug abuser Recommendations: Continue ceftriaxone IV Follow blood cultures Discussed with Dr. Chauhan Follow clinically. No need for PICC if blood cultures negative will likely DC home on oral antibiotics for suppression of infection to complete 12 week course. High likelihood of recurrence given ongoing drug abuse IV.
--- NOTE | 2017-10-02 21:06 | P.CONNS ---
History of Present Illness Service: Neurosurgery Consult date: 10/02/17 Requesting Physician: Romel Parada Reason for Consult: Osteomyelitis-paraspinous abscess Primary Care Provider: UNKNOWN Chief Complaint: back pain History of Present Illness: 57-year-old male previously evaluated by the undersigned. He presented in July 2017 with severe back pain, findings consistent with L4-5 discitis- paraspinous abscess. He underwent previous this biopsy on 07/31/2017. He required an anterior oblique approach to drain an extensive bilateral retroperitoneal and bilateral so as muscle abscess on 08/14/2017. Due to some evidence of further recurrence he underwent another CT-guided aspiration of the psoas muscle abscess on 08/30/2017. He required inpatient completion of a 10 week course of IV ceftriaxone since he could be discharged with a PICC line due to high potential for persistent IV drug use. He left the hospital AGAINST MEDICAL ADVICE on 10/20/2017. He came back to the emergency room last evening with complaints of persistent back pain. He does not complain of any significant new pain weakness or numbness in the extremities. Review of Systems Constitutional: Reports fatigue, Reports lack of energy, Reports malaise Ears, Nose, Mouth, and Throat: Denies mouth lesions Cardiovascular: Denies chest pain Respiratory: Denies shortness of breath with activity Gastrointestinal: Denies abdominal pain Genitourinary: Denies urinary hesitancy, Denies urinary incontinence Neurologic: Reports radiating pain, Denies numbness, Denies tingling/numbness/ burning sensations PMFSH - History History Provided By: Patient - Medical History Medical History: Medical History (Last Reviewed 10/02/17 @ 20:55 by Guero Felipe MD) History of drainage of abscess Aneurysm of right internal iliac artery Chronic anemia Chronic renal insufficiency Cocaine use Hypertension Osteomyelitis of lumbar spine Sarcoidosis - Surgical History Surgical History: Surgical History (Last Reviewed 10/02/17 @ 20:55 by Guero Felipe MD) H/O knee surgery Hx of lumbosacral spine surgery - Family History Family History: Family History (Last Reviewed 10/02/17 @ 20:55 by Guero Felipe MD) Mother Asthma Diabetes mellitus Kidney disease Father CVA (cerebral vascular accident) Brother Diabetes mellitus Seizure Sister Diabetes mellitus Other Atrial fibrillation - Tobacco History Second Hand Smoke Exposure: Yes Tobacco Use In Past 30 Days: Yes Smoking Status: Refused to answer Tobacco Type: Cigarettes - Alcohol History How Often Do You Have a Drink Containing Alcohol: Never - Substance Use History Substance History: Active Abuse - Substance Use Type Crack/Cocaine Status: Active Reason for Use: Feels Good Comment: last used sunday09/28/17 - Travel History Recent Travel in the [place] Within the Last 8 Weeks: No Recent Travel Out of the Country Within the Last 8 Weeks: No - Immunization History Tetanus Immunization: Unable to Assess Hx Influenza Vaccine This Season: Unable to Assess Medications and Allergies Active Medications: Active Medications Hydrocodone Bitart/Acetaminophen ([place] 7.5/325) 1 tab PO Q4H PRN PRN Reason: PAIN SCALE 6 TO 10 Last Admin: 10/02/17 20:37 Dose: 1 tab Hydrocodone Bitart/Acetaminophen ([place] 5/325) 1 tab PO Q4H PRN PRN Reason: PAIN SCALE 3 TO 5 Dextrose (D50w Vial) 50 ml IV.PUSH UNSCH PRN PRN Reason: PER HYPOGLYCEMIA PROTOCOL Last Admin: 10/02/17 12:10 Dose: 50 ml Glucagon (Glucagon Inj) 1 mg OTHER PRN PRN PRN Reason: for Hypoglycemia Protocol Ceftriaxone Sodium 2,000 mg/ (Sodium Chloride) 100 mls @ 200 mls/hr IV.SIG Q12H [facility] Last Infusion: 10/02/17 12:42 Dose: Infused Potassium Chloride 10 meq/ (Dextrose/Sodium Chloride) 1,005 mls @ 125 mls/hr IV.CONT .Q8H3M [facility] Last Admin: 10/02/17 12:45 Dose: 125 mls/hr Morphine Sulfate (Morphine Inj) 4 mg IV.PUSH Q3H PRN PRN Reason: BREAKTHROUGH PAIN Naloxone HCl (Narcan Inj) 0.4 mg IV.PUSH UNSCH PRN PRN Reason: SEE LABEL COMMENTS Allergies Allergy/AdvReac Type Severity Reaction Status Date / Time No Known Drug Allergies Allergy none Verified 10/02/17 00:08 *MDRO Multi-Drug Resistant AdvReac Unknown mrsa Uncoded 10/02/17 00:08 Organism Home Medications Medication Instructions Recorded Confirmed Type Unable to Obtain Home Meds 10/01/17 10/01/17 History Exam Vital signs: Vital Signs 10/01/17 21:25 10/02/17 00:00 10/02/17 01:57 Temperature 98.4 F Pulse Rate 96 H Respiratory Rate 16 17 18 Blood Pressure 107/73 Pulse Oximetry 94 L 10/02/17 03:40 10/02/17 07:51 10/02/17 12:00 Temperature 98.2 F 97.9 F 97.8 F Pulse Rate 99 H 99 H 95 H Respiratory Rate 17 18 16 Blood Pressure 124/85 143/92 H 103/73 Pulse Oximetry 96 95 97 10/02/17 13:02 10/02/17 13:31 10/02/17 16:00 Temperature 98.7 F 98.0 F 98.8 F Pulse Rate 62 89 Respiratory Rate 18 18 18 Blood Pressure 143/89 H 140/71 122/65 Pulse Oximetry 98 98 100 10/02/17 19:47 Temperature 97.7 F Pulse Rate 90 Respiratory Rate 16 Blood Pressure 132/90 Pulse Oximetry 94 L Intake & Output 10/02/17 10/02/17 10/03/17 06:59 18:59 06:59 Intake Total 100 / 100 100 / 100 Output Total 300 / 300 Balance 100 / 100 -200 / -200 Intake: IV 100 / 100 100 / 100 Rocephin Inj 2,000 MG In NS Inj 100 / 100 100 / 100 100 ML @ 200 mls/hr IV.SIG Q12H [facility] Rx#:[id number] Output: Urine 300 / 300 Other: # Voids 2 Date of Last Bowel Movement 10/01/17 Narrative: General: Somewhat disheveled middle-aged gentleman. Appears uncomfortable during examination. Respirations: Clear and regular Cardiac: Heart rate regular Abdomen: Soft, mildly distended, nontender Extremities: Mild lower extremity edema. No cyanosis. Musculoskeletal: No significant pain upon movement of the joints of the upper and lower extremities. Neurologic: Awake and alert Mild agitation Answers most simple questions appropriately Somewhat diminished judgment and insight Answers simple questions appropriate Follows most simple commands Sensation intact light touch all extremities Complains of back pain with lower extremity motor testing, but with encouragement no definite focal deficit in major upper and lower extremity flexion and extension groups. Casper's response absent bilateral No ankle clonus Plantar responses are neutral Results - Laboratory Findings CBC and BMP: 10/02/17 15:45 10/03/17 03:53 Abnormal lab findings: Abnormal Labs 10/01/17 10/01/17 10/01/17 21:00 21:00 21:00 RBC Hgb Hct [place] % (Auto) Eos % (Auto) Lymph # (Auto) Eos # (Auto) ESR 44 H PT 11.8 H Sodium Carbon Dioxide BUN Creatinine Estimated GFR POC Glucose Random Glucose AST Alkaline Phosphatase Total Creatine Kinase 481 H CK-MB (CK-2) 4.2 H Troponin I Less than 0.02 L C-Reactive Protein 19.20 H Total Protein Urine Clarity Urine Urobilinogen Urine Mucus 10/01/17 10/01/17 10/02/17 21:00 21:00 07:50 RBC 4.15 L Hgb 12.0 L Hct 36.6 L [place] % (Auto) 13.2 H Eos % (Auto) 9.1 H Lymph # (Auto) 0.7 L Eos # (Auto) 0.5 H ESR PT Sodium 134 L Carbon Dioxide 20.5 L BUN 38 H Creatinine 2.09 H Estimated GFR 40 L POC Glucose Random Glucose 62 L AST 64 H Alkaline Phosphatase 194 H Total Creatine Kinase CK-MB (CK-2) Troponin I C-Reactive Protein Total Protein 10.0 H Urine Clarity Hazy H Urine Urobilinogen 2.0 H Urine Mucus Few H 10/02/17 10/02/17 10/02/17 11:46 12:19 15:45 RBC 3.87 L Hgb 11.4 L Hct 34.5 L [place] % (Auto) 16.6 H Eos % (Auto) 10.9 H Lymph # (Auto) 0.9 L Eos # (Auto) 0.5 H ESR PT Sodium Carbon Dioxide BUN Creatinine Estimated GFR POC Glucose 54 L 191 H Random Glucose AST Alkaline Phosphatase Total Creatine Kinase CK-MB (CK-2) Troponin I C-Reactive Protein Total Protein Urine Clarity Urine Urobilinogen Urine Mucus 10/02/17 15:45 RBC Hgb Hct [place] % (Auto) Eos % (Auto) Lymph # (Auto) Eos # (Auto) ESR PT Sodium Carbon Dioxide 19.7 L BUN 42 H Creatinine 2.54 H Estimated GFR 32 L POC Glucose Random Glucose AST Alkaline Phosphatase Total Creatine Kinase CK-MB (CK-2) Troponin I C-Reactive Protein Total Protein Urine Clarity Urine Urobilinogen Urine Mucus - Diagnostic Findings Additional findings: 10/01/2017 MRI lumbar spine images are reviewed and compared to prior study of . There is no significant change between the 2 studies. There is persistent abnormal signal intensity within the L4 and L5 vertebral bodies with evidence of fluid within the disc space. Persistent anterior paravertebral fluid collection, stable from prior study. Moderate L3-4 and L4- 5 stenosis. Mild to moderate separation of the L4-5 facet with minimal subluxation. Assessment and Plan - Plan Impression: 1. L4-5 discitis-osteomyelitis, status post drainage of extensive retroperitoneal and bilateral psoas muscle abscess. Recent MRI stable compared to prior study of 09/23/2017. No evidence of new neurologic deficit or progression or recurrence of abscess. Recommendations: Continue present antibiotic regimen per infectious disease. No surgical intervention is recommended at this time. He may progress to a spontaneous fusion at the L4-5 level. Continue intermittent follow-up x-ray and CT imaging studies with follow-up MRI images as needed for any recurrent fevers or development of neurologic symptoms or deficit. May continue to mobilize out of bed, preferably with LSO brace. Patient should avoid reaching, bending.
[2017-10-03 05:30] LABS: Calcium 9.3 mg/dL (8.5-10.1); Carbon Dioxide 18.9 meq/L (21.0-32.0)
--- NOTE | 2017-10-03 13:11 | P.PN ---
Subjective Interval history: Follow-up L5 osteomyelitis/epidural abscess/strep bacteremia October 03, 2017-patient seen and examined, currently afebrile. Complains of low back pain Physical Exam Vital signs: Vital Signs 10/02/17 13:31 10/02/17 16:00 10/02/17 19:47 Temperature 98.0 F 98.8 F 97.7 F Pulse Rate 89 90 Respiratory Rate 18 18 16 Blood Pressure 140/71 122/65 132/90 Pulse Oximetry 98 100 94 L 10/02/17 22:21 10/03/17 00:45 10/03/17 04:00 Temperature 98.1 F 97.4 F L Pulse Rate 92 H 90 Respiratory Rate 15 18 18 Blood Pressure 120/80 114/82 Pulse Oximetry 97 95 10/03/17 08:00 Temperature 97.8 F Pulse Rate 93 H Respiratory Rate 20 Blood Pressure 140/83 Pulse Oximetry 94 L Intake & Output 10/02/17 10/03/17 10/03/17 18:59 06:59 18:59 Intake Total 100 / 100 2009 Output Total 300 / 300 Balance -200 / -200 2009 Weight 103.1 kg Intake: IV 100 / 100 2009 KCl Inj 10 MEQ In D5W/Normal 2009 Saline Inj 1,000 ML @ 125 mls/ hr IV.CONT .Q8H3M [facility] Rx#: [id number] Rocephin Inj 2,000 MG In NS Inj 100 / 100 100 ML @ 200 mls/hr IV.SIG Q12H [facility] Rx#:[id number] Output: Urine 300 / 300 Other: # Voids 2 Date of Last Bowel Movement 10/01/17 10/01/17 Narrative: GENERAL: NAD SKIN: Warm and dry. HEAD: Normocephalic. EYES: No scleral icterus. No injection or drainage. NECK: Supple, trachea midline. No JVD or lymphadenopathy. CARDIOVASCULAR: Regular rate and rhythm without murmurs, gallops, or rubs. RESPIRATORY: Breath sounds equal bilaterally. No accessory muscle use. GASTROINTESTINAL: Abdomen soft, non-tender, nondistended. MUSCULOSKELETAL: No cyanosis, or edema. BACK: mildly tender without obvious deformity. No CVA tenderness. Results - Labs CBC & Chem 7: 10/02/17 15:45 10/03/17 03:53 Laboratory Results - last 24 hr 0710/02/17 10/02/17 13:11 15:45 15:45 WBC 4.8 RBC 3.87 L Hgb 11.4 L Hct 34.5 L MCV 89.1 MCH 29.3 MCHC 32.9 RDW 17.2 Plt Count 168 MPV 7.5 Neut % (Auto) 52.0 Lymph % (Auto) 19.5 [place] % (Auto) 16.6 H Eos % (Auto) 10.9 H Baso % (Auto) 1.0 Neut # (Auto) 2.5 Lymph # (Auto) 0.9 L [place] # (Auto) 0.8 Eos # (Auto) 0.5 H Baso # (Auto) 0.0 WBC Differential . Differential Comment Auto diff final Sodium 136 Potassium 4.5 Chloride 104 Carbon Dioxide 19.7 L Anion Gap 12 BUN 42 H Creatinine 2.54 H Estimated GFR 32 L Random Glucose 84 75 Calcium 9.1 10/03/17 03:53 WBC RBC Hgb Hct MCV MCH MCHC RDW Plt Count MPV Neut % (Auto) Lymph % (Auto) [place] % (Auto) Eos % (Auto) Baso % (Auto) Neut # (Auto) Lymph # (Auto) [place] # (Auto) Eos # (Auto) Baso # (Auto) WBC Differential Differential Comment Sodium 136 Potassium 5.0 Chloride 104 Carbon Dioxide 18.9 L Anion Gap 13 BUN 41 H Creatinine 2.46 H Estimated GFR 33 L Random Glucose 71 L Calcium 9.3 Microbiology 10/01/17 21:03 Blood - Peripheral Aerobic Blood Culture - Preliminary No growth in 2 days 10/01/17 21:03 Blood - Peripheral Anaerobic Blood Culture - Preliminary No growth in 2 days 10/01/17 21:09 Blood - Peripheral Aerobic Blood Culture - Preliminary No growth in 2 days 10/01/17 21:09 Blood - Peripheral Anaerobic Blood Culture - Preliminary No growth in 2 days Assessment and Plan - Plan 57-year-old man with L5 osteomyelitis Epidural abscess Strep bacteremia Currently on Rocephin per ID, however when discharge patient likely will need p.o. 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 Outpatient follow-up DVT prophylaxis: Bilateral SCDs
--- NOTE | 2017-10-04 11:07 | P.PN ---
Subjective Interval history: Follow-up L5 osteomyelitis/epidural abscess/strep bacteremia October 03, 2017-patient seen and examined, currently afebrile. Complains of low back pain October 04, 2017-patient seen and examined, still complains of back pain does not want to move much from his bed. Otherwise stable Physical Exam Vital signs: Vital Signs 10/03/17 12:00 10/03/17 15:52 10/03/17 16:00 Temperature 97.7 F 98.2 F Pulse Rate 91 H 90 93 H Respiratory Rate 20 20 Blood Pressure 147/106 H 168/110 H Pulse Oximetry 94 L 96 10/03/17 19:51 10/03/17 20:00 10/04/17 00:00 Temperature 98.6 F 98.3 F Pulse Rate 93 H 93 H 94 H Respiratory Rate 18 17 Blood Pressure 140/93 H 124/67 Pulse Oximetry 93 L 95 10/04/17 03:45 10/04/17 04:00 10/04/17 08:00 Temperature 98.8 F 98.0 F Pulse Rate 99 H 92 H 90 Respiratory Rate 19 20 Blood Pressure 136/92 H 146/97 H Pulse Oximetry 94 L 94 L Intake & Output 10/03/17 10/04/17 10/04/17 18:59 06:59 18:59 Intake Total 940 / 940 240 / 240 Output Total 300 / 300 550 / 550 Balance 640 / 640 -310 / -310 Weight 104.4 kg Intake: IV 700 / 700 KCl Inj 10 MEQ In D5W/Normal 600 / 600 Saline Inj 1,000 ML @ 125 mls/ hr IV.CONT .Q8H3M [facility] Rx#: [id number] Rocephin Inj 2,000 MG In NS Inj 100 / 100 100 ML @ 200 mls/hr IV.SIG Q12H [facility] Rx#:[id number] Oral 240 / 240 240 / 240 Output: Urine 300 / 300 550 / 550 Stool 0 / 0 Narrative: GENERAL: NAD SKIN: Warm and dry. HEAD: Normocephalic. EYES: No scleral icterus. No injection or drainage. NECK: Supple, trachea midline. No JVD or lymphadenopathy. CARDIOVASCULAR: Regular rate and rhythm without murmurs, gallops, or rubs. RESPIRATORY: Breath sounds equal bilaterally. No accessory muscle use. GASTROINTESTINAL: Abdomen soft, non-tender, nondistended. MUSCULOSKELETAL: No cyanosis, or edema. BACK: mildly tender without obvious deformity. No CVA tenderness. Results - Labs CBC & Chem 7: 10/02/17 15:45 10/03/17 03:53 Laboratory Results - last 24 hr 10/04/17 08:14 POC Glucose 95 Microbiology 10/01/17 21:03 Blood - Peripheral Aerobic Blood Culture - Preliminary No growth in 3 days 10/01/17 21:03 Blood - Peripheral Anaerobic Blood Culture - Preliminary No growth in 3 days 10/01/17 21:09 Blood - Peripheral Aerobic Blood Culture - Preliminary No growth in 3 days 10/01/17 21:09 Blood - Peripheral Anaerobic Blood Culture - Preliminary No growth in 3 days Assessment and Plan - Plan 57-year-old man with L5 osteomyelitis Epidural abscess Strep bacteremia Continue Rocephin per ID, however when discharge patient likely will need p.o. 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 Outpatient follow-up DVT prophylaxis: Bilateral SCDs
--- NOTE | 2017-10-04 20:14 | P.PNNS ---
Subjective Interval history: Complains of persistent low back pain with radiation to the lateral left lower extremity when ambulating or standing. No lower extremity numbness or weakness. No bowel or bladder dysfunction. Physical Exam Vital signs: Vital Signs 10/04/17 00:00 10/04/17 03:45 10/04/17 04:00 Temperature 98.3 F 98.8 F Pulse Rate 94 H 99 H 92 H Respiratory Rate 17 19 Blood Pressure 124/67 136/92 H Pulse Oximetry 95 94 L 10/04/17 08:00 10/04/17 12:00 10/04/17 16:00 Temperature 98.0 F Pulse Rate 90 92 H 90 Respiratory Rate 20 20 20 Blood Pressure 146/97 H 136/94 H Pulse Oximetry 94 L 97 96 Intake & Output 10/04/17 10/04/17 10/05/17 06:59 18:59 06:59 Intake Total 240 / 240 Output Total 550 / 550 300 / 300 Balance -310 / -310 -300 / -300 Weight 104.4 kg Intake: IV 0 / 0 Rocephin Inj 2,000 MG In NS Inj 0 / 0 100 ML @ 200 mls/hr IV.SIG Q12H [facility] Rx#:[id number] Oral 240 / 240 Output: Urine 550 / 550 300 / 300 Stool 0 / 0 Other: Post Void Residual 0 # Voids 2 # Incontinent Voids 0 # Urine Diapers 0 Narrative: Awake and alert Moderate tenderness lower lumbar region. Sensation intact light touch all extremities Strength normal major flexion-extension groups all extremities No ankle clonus Assessment and Plan - Plan Impression: 1. L4-5 discitis-osteomyelitis, status post drainage of extensive retroperitoneal and bilateral psoas muscle abscess. Recent MRI stable compared to prior study of 09/23/2017. No evidence of new neurologic deficit or progression or recurrence of abscess. Recommendations: Long discussion with patient regarding the findings and treatment options again. Although he does not have significant neurologic deficit, and his most recent MRI of the lumbar spine is stable, the persistent left L5 radicular pain interfering with activity may warrant surgical intervention at this time. I advised him that we can proceed with surgery for L4-5 laminectomy, interbody fusion with instrumentation on 10/08/2017. He declines to proceed with surgery at this time. He states that he is moving to [place] in approximately 3 weeks, and wants his records and imaging studies and wants to have the surgery done after he moves, so that he can have more consistent follow-up after surgery. We will therefore hold off on any plans for surgery in accordance with the patient's wishes.
--- NOTE | 2017-10-05 12:10 | P.PN ---
Subjective Interval history: Follow-up L5 osteomyelitis/epidural abscess/strep bacteremia October 03, 2017-patient seen and examined, currently afebrile. Complains of low back pain October 04, 2017-patient seen and examined, still complains of back pain does not want to move much from his bed. Otherwise stable October 05, 2017-patient seen and examined, still with persistent back pain; denies any bladder or bowel complaint. still declines surgical intervention Physical Exam Vital signs: Vital Signs 10/04/17 16:00 10/04/17 20:00 10/05/17 00:00 Temperature 99 F 98.2 F Pulse Rate 90 94 H 97 H Respiratory Rate 20 20 18 Blood Pressure 171/99 H 145/84 H Pulse Oximetry 96 95 96 10/05/17 04:00 10/05/17 04:58 10/05/17 08:00 Temperature 98.6 F 98.2 F Pulse Rate 94 H 90 94 H Respiratory Rate 16 18 Blood Pressure 146/82 H 112/75 Pulse Oximetry 96 95 Intake & Output 10/04/17 10/05/17 10/05/17 18:59 06:59 18:59 Intake Total 100 / 100 580 / 580 Output Total 300 / 300 1300 / 1300 Balance -200 / -200 -720 / -720 Weight 103.4 kg Intake: IV 100 / 100 100 / 100 Rocephin Inj 2,000 MG In NS Inj 100 / 100 100 / 100 100 ML @ 200 mls/hr IV.SIG Q12H [facility] Rx#:[id number] Oral 480 / 480 Output: Urine 300 / 300 1300 / 1300 Stool 0 / 0 0 / 0 Other: Post Void Residual 0 # Voids 2 # Incontinent Voids 0 # Urine Diapers 0 Narrative: GENERAL: NAD SKIN: Warm and dry. HEAD: Normocephalic. EYES: No scleral icterus. No injection or drainage. NECK: Supple, trachea midline. No JVD or lymphadenopathy. CARDIOVASCULAR: Regular rate and rhythm without murmurs, gallops, or rubs. RESPIRATORY: Breath sounds equal bilaterally. No accessory muscle use. GASTROINTESTINAL: Abdomen soft, non-tender, nondistended. MUSCULOSKELETAL: No cyanosis, or edema. BACK: Nontender without obvious deformity. No CVA tenderness. Results - Labs CBC & Chem 7: 10/02/17 15:45 10/03/17 03:53 Microbiology 10/01/17 21:03 Blood - Peripheral Aerobic Blood Culture - Preliminary No growth in 4 days 10/01/17 21:03 Blood - Peripheral Anaerobic Blood Culture - Preliminary No growth in 4 days 10/01/17 21:09 Blood - Peripheral Aerobic Blood Culture - Preliminary No growth in 4 days 10/01/17 21:09 Blood - Peripheral Anaerobic Blood Culture - Preliminary No growth in 4 days Assessment and Plan - Plan 57-year-old man with L5 osteomyelitis Epidural abscess Strep bacteremia Continue Rocephin per ID, however when discharge patient likely will need p.o. antibiotics 12 weeks Appreciate input from neurosurgery Per NSG can proceed with surgery for L4-5 laminectomy, interbody fusion with instrumentation on 10/08/2017. 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 Outpatient follow-up DVT prophylaxis: Bilateral SCDs
--- NOTE | 2017-10-06 12:53 | P.PN ---
Subjective Interval history: Follow-up L5 osteomyelitis/epidural abscess/strep bacteremia October 03, 2017-patient seen and examined, currently afebrile. Complains of low back pain October 04, 2017-patient seen and examined, still complains of back pain does not want to move much from his bed. Otherwise stable October 05, 2017-patient seen and examined, still with persistent back pain; denies any bladder or bowel complaint. still declines surgical intervention October 06, 2017-patient seen and examined, patient states, he may reconsider getting surgical intervention done prior to discharge. Positive for back pain Physical Exam Vital signs: Vital Signs 10/05/17 16:00 10/05/17 20:00 10/06/17 00:00 Temperature 97.9 F 98.4 F 98.0 F Pulse Rate 93 H 86 69 Respiratory Rate 20 16 14 Blood Pressure 153/104 H 138/60 118/62 Pulse Oximetry 96 98 96 10/06/17 04:53 10/06/17 06:00 Temperature 98.0 F Pulse Rate 97 H 68 Respiratory Rate 14 Blood Pressure 120/60 Pulse Oximetry 95 Intake & Output 10/05/17 10/06/17 10/06/17 18:59 06:59 18:59 Intake Total 1700 / 1700 Output Total 550 / 550 Balance 1150 / 1150 Weight 103 kg Intake: IV 100 / 100 Rocephin Inj 2,000 MG In NS Inj 100 / 100 100 ML @ 200 mls/hr IV.SIG Q12H [facility] Rx#:[id number] Oral 1600 / 1600 Output: Urine 550 / 550 Other: # Bowel Movements 0 Narrative: GENERAL: NAD SKIN: Warm and dry. HEAD: Normocephalic. EYES: No scleral icterus. No injection or drainage. NECK: Supple, trachea midline. No JVD or lymphadenopathy. CARDIOVASCULAR: Regular rate and rhythm without murmurs, gallops, or rubs. RESPIRATORY: Breath sounds equal bilaterally. No accessory muscle use. GASTROINTESTINAL: Abdomen soft, non-tender, nondistended. MUSCULOSKELETAL: No cyanosis, or edema. BACK: mildly tender without obvious deformity. No CVA tenderness. Results - Labs CBC & Chem 7: 10/02/17 15:45 10/03/17 03:53 Microbiology 10/01/17 21:03 Blood - Peripheral Aerobic Blood Culture - Final No growth in 5 days 10/01/17 21:03 Blood - Peripheral Anaerobic Blood Culture - Final No growth in 5 days 10/01/17 21:09 Blood - Peripheral Aerobic Blood Culture - Final No growth in 5 days 10/01/17 21:09 Blood - Peripheral Anaerobic Blood Culture - Final No growth in 5 days Assessment and Plan - Plan 57-year-old man with L5 osteomyelitis Epidural abscess Strep bacteremia Continue Rocephin per ID, however when discharge patient likely will need p.o. antibiotics 12 weeks Appreciate input from neurosurgery Per NSG can proceed with surgery for L4-5 laminectomy, interbody fusion with instrumentation on 10/08/2017. However the patient declines to proceed with surgery at this time. 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 Outpatient follow-up DVT prophylaxis: Bilateral SCDs
[2017-10-07 08:06] LABS: Baso # (Auto) 0.1 th/mm3 (0.0-0.2); Baso % (Auto) 0.9 % (0.0-2.0); Eos # (Auto) 0.8 th/mm3 (0.0-0.4); Eos % (Auto) 12.1 % (0.0-4.0); Hematocrit 35.9 % (39.0-51.0); Hemoglobin 11.9 gm/dL (13.0-17.0); Lymph # (Auto) 1.8 th/mm3 (1.0-4.8); Lymph % (Auto) 29.1 % (9.0-44.0); Mean Corpuscular Hemoglobin 28.8 pg (27.0-34.0); Mean Corpuscular Volume 87.2 fL (80.0-100.0); Mean Platelet Volume 7.4 fL (7.0-11.0); Mono % (Auto) 15.6 % (0.0-8.0); Neut # (Auto) 2.7 th/mm3 (1.8-7.7); Neut % (Auto) 42.3 % (16.0-70.0); Platelet Count 176 th/mm3 (150-450); Red Blood Count 4.12 mil/mm3 (4.50-5.90); Red Cell Distribution Width 17.2 % (11.6-17.2); White Blood Count 6.3 th/mm3 (4.0-11.0)
[2017-10-07 08:12] LABS: Carbon Dioxide 20.8 meq/L (21.0-32.0); Potassium 4.8 meq/L (3.5-5.1)
--- NOTE | 2017-10-07 11:43 | P.PN ---
Subjective Interval history: Follow-up L5 osteomyelitis/epidural abscess/strep bacteremia October 03, 2017-patient seen and examined, currently afebrile. Complains of low back pain October 04, 2017-patient seen and examined, still complains of back pain does not want to move much from his bed. Otherwise stable October 05, 2017-patient seen and examined, still with persistent back pain; denies any bladder or bowel complaint. still declines surgical intervention October 06, 2017-patient seen and examined, patient states, he may reconsider getting surgical intervention done prior to discharge. Positive for back pain October 07, 2017-patient seen and examined, resting, still complaining of back pain otherwise stable Physical Exam Vital signs: Vital Signs 10/06/17 12:00 10/06/17 16:00 10/06/17 20:00 Temperature 98.0 F 98.3 F 98.6 F Pulse Rate 91 H 75 93 H Respiratory Rate 18 19 20 Blood Pressure 138/90 146/100 H 140/98 H Pulse Oximetry 94 L 94 L 94 L 10/07/17 00:00 10/07/17 04:00 10/07/17 08:00 Temperature 97.6 F 97.9 F 97.4 F L Pulse Rate 100 H 102 H 101 H Respiratory Rate 17 16 19 Blood Pressure 115/87 124/82 128/84 Pulse Oximetry 93 L 92 L 95 Intake & Output 10/06/17 10/07/17 10/07/17 18:59 06:59 18:59 Intake Total 480 / 480 570 / 570 Output Total 800 / 800 100 / 100 Balance -320 / -320 470 / 470 Weight 103.6 kg Intake: IV 100 / 100 Rocephin Inj 2,000 MG In NS Inj 100 / 100 100 ML @ 200 mls/hr IV.SIG Q12H [facility] Rx#:[id number] Oral 380 / 380 570 / 570 Output: Urine 800 / 800 100 / 100 Other: Date of Last Bowel Movement 10/03/17 # Bowel Movements 0 Narrative: GENERAL: NAD SKIN: Warm and dry. HEAD: Normocephalic. EYES: No scleral icterus. No injection or drainage. NECK: Supple, trachea midline. No JVD or lymphadenopathy. CARDIOVASCULAR: Regular rate and rhythm without murmurs, gallops, or rubs. RESPIRATORY: Breath sounds equal bilaterally. No accessory muscle use. GASTROINTESTINAL: Abdomen soft, non-tender, nondistended. MUSCULOSKELETAL: No cyanosis, or edema. BACK: mildly tender without obvious deformity. No CVA tenderness. Results - Labs CBC & Chem 7: 10/07/17 07:05 10/07/17 07:05 Laboratory Results - last 24 hr 10/07/17 10/07/17 07:05 07:05 WBC 6.3 RBC 4.12 L Hgb 11.9 L Hct 35.9 L MCV 87.2 MCH 28.8 MCHC 33.0 RDW 17.2 Plt Count 176 MPV 7.4 Prelim Diff (Auto) Slide review pending Neut % (Auto) 42.3 Lymph % (Auto) 29.1 [place] % (Auto) 15.6 H Eos % (Auto) 12.1 H Baso % (Auto) 0.9 Neut # (Auto) 2.7 Lymph # (Auto) 1.8 [place] # (Auto) 1.0 H Eos # (Auto) 0.8 H Baso # (Auto) 0.1 WBC Differential . Diff Scan Auto diff confirmed Differential Comment . Hematology Comments Sodium 138 Potassium 4.8 Chloride 105 Carbon Dioxide 20.8 L Anion Gap 12 BUN 30 H Creatinine 1.80 H Estimated GFR 48 L Random Glucose 72 L Calcium 10.0 Microbiology 10/01/17 21:03 Blood - Peripheral Aerobic Blood Culture - Final No growth in 5 days 10/01/17 21:03 Blood - Peripheral Anaerobic Blood Culture - Final No growth in 5 days 10/01/17 21:09 Blood - Peripheral Aerobic Blood Culture - Final No growth in 5 days 10/01/17 21:09 Blood - Peripheral Anaerobic Blood Culture - Final No growth in 5 days Assessment and Plan - Plan 57-year-old man with L5 osteomyelitis Epidural abscess Strep bacteremia Continue Rocephin pending final culture report per ID, however when discharge patient likely will need p.o. antibiotics 12 weeks Appreciate input from neurosurgery Per NSG can proceed with surgery for L4-5 laminectomy, interbody fusion with instrumentation on 10/08/2017. However the patient declines to proceed with surgery at this time. 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 Outpatient follow-up DVT prophylaxis: Bilateral SCDs
--- NOTE | 2017-10-08 10:46 | P.PN ---
Subjective Interval history: Follow-up L5 osteomyelitis/epidural abscess/strep bacteremia October 03, 2017-patient seen and examined, currently afebrile. Complains of low back pain October 04, 2017-patient seen and examined, still complains of back pain does not want to move much from his bed. Otherwise stable October 05, 2017-patient seen and examined, still with persistent back pain; denies any bladder or bowel complaint. still declines surgical intervention October 06, 2017-patient seen and examined, patient states, he may reconsider getting surgical intervention done prior to discharge. Positive for back pain October 07, 2017-patient seen and examined, resting, still complaining of back pain otherwise stable October 08, 2017-patient seen and examined, no change other than the same complaint of back pain, patient afebrile, Physical Exam Vital signs: Vital Signs 10/07/17 12:00 10/07/17 16:00 10/07/17 20:00 Temperature 97.8 F 98.0 F 97.8 F Pulse Rate 96 H 61 95 H Respiratory Rate 18 18 20 Blood Pressure 110/75 114/69 146/94 H Pulse Oximetry 100 98 95 10/08/17 00:00 10/08/17 04:00 Temperature 98.7 F 97.8 F Pulse Rate 94 H 90 Respiratory Rate 18 20 Blood Pressure 128/80 110/80 Pulse Oximetry 94 L 95 Intake & Output 10/07/17 10/08/17 10/08/17 18:59 06:59 18:59 Intake Total 480 / 480 120 / 120 Output Total 450 / 450 Balance 30 / 30 120 / 120 Weight 86 kg Intake: IV 0 / 0 120 / 120 Rocephin Inj 2,000 MG In NS Inj 0 / 0 120 / 120 100 ML @ 200 mls/hr IV.SIG Q12H [facility] Rx#:[id number] Oral 480 / 480 Output: Urine 450 / 450 Other: # Bowel Movements 1 Narrative: GENERAL: NAD SKIN: Warm and dry. HEAD: Normocephalic. EYES: No scleral icterus. No injection or drainage. NECK: Supple, trachea midline. No JVD or lymphadenopathy. CARDIOVASCULAR: Regular rate and rhythm without murmurs, gallops, or rubs. RESPIRATORY: Breath sounds equal bilaterally. No accessory muscle use. GASTROINTESTINAL: Abdomen soft, non-tender, nondistended. MUSCULOSKELETAL: No cyanosis, or edema. BACK: mildly tender without obvious deformity. No CVA tenderness. Results - Labs CBC & Chem 7: 10/07/17 07:05 10/07/17 07:05 Assessment and Plan - Plan 57-year-old man with L5 osteomyelitis Epidural abscess Strep bacteremia Continue Rocephin pending final culture report per ID, however when discharge patient likely will need p.o. antibiotics 12 weeks Appreciate input from neurosurgery Per NSG can proceed with surgery for L4-5 laminectomy, interbody fusion with instrumentation on 10/08/2017. However the patient declines to proceed with surgery at this time. 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 Outpatient follow-up DVT prophylaxis: Bilateral SCDs
--- NOTE | 2017-10-08 13:24 | P.PNID ---
Subjective Remarks: Mr. Gee is a 57-year-old -[place] male with past medical history significant for IV drug abuse, history of osteomyelitis of the L5 vertebra with bilateral psoas muscle abscesses status post surgical drainage. Patient also had an aneurysm and was evaluated by Dr. Sanchez. Blood cultures from that admission grew strep vaginosis and patient was treated with ceftriaxone IV every 12 for almost 10 weeks in total. Patient also underwent a repeat MRI which showed persistent fluid collection and then this was drained by interventional radiology. The cultures from interventional radiology guided drainage were negative. Patient continued to receive IV antibiotics with the hopes that the drainage would help reduce the size of these abscesses. Patient was followed by Dr. Pineda of neurosurgery on several occasions and it was determined that there was no immediate need for surgical intervention and that the patient could have a repeat MRI as outpatient to decide if ultimate surgery needed. 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 Due to his ongoing IV drug abuse while in the hospital there was concern with discharging him outpatient and therefore he finished his 10+ week course of IV ceftriaxone every 12 within the hospital. Patient was undergoing physical therapy and was able to walk around in the room with the help of walker. Patient signed off AMA on October 26 and now returns to the hospital due to persistent back pain. Patient admits to doing cocaine but denies any IV drug abuse although is clearly unreliable based on my experiences with him during his hospitalization when he was found with drug paraphernalia. Patient underwent CT-guided fluid drainage for culture as well as this biopsy on L4-L5 on July 31, 2017. Patient underwent lateral oblique approach for drainage of lumbar retroperitoneal and bilateral psoas muscle abscess on August 14, 2017. Patient underwent CT-guided needle aspiration of the psoas muscle abscess again on August 30, 2017. Patient underwent blood cultures x2 on this admission and so far the blood cultures are negative. Patient underwent a repeat MRI which showed persistent changes in the spine. Infectious diseases consulted for evaluation and management of L5 osteomyelitis of the spine. Overnight no fevers No rash No diarrhea Antibiotics: Ceftriaxone IV Lines: Lines ok Past Medical History: reviewed Allergies/Adverse Reactions: Allergies No Known Drug Allergies Allergy (Verified 10/02/17 00:08) none *MDRO Multi-Drug Resistant Organism Adverse Reaction (Unknown, Uncoded 10/02/17 00:08) mrsa MRSA (leg wound) - 10/2006 MRSA PCR screen positive - 10/2014 Objective Vital Signs 10/07/17 16:00 10/07/17 20:00 10/08/17 00:00 Temperature 98.0 F 97.8 F 98.7 F Pulse Rate 61 95 H 94 H Respiratory Rate 18 20 18 Blood Pressure 114/69 146/94 H 128/80 Pulse Oximetry 98 95 94 L 10/08/17 04:00 10/08/17 08:00 10/08/17 12:00 Temperature 97.8 F 98.2 F 98.2 F Pulse Rate 90 94 H 100 H Respiratory Rate 20 16 16 Blood Pressure 110/80 101/74 98/73 L Pulse Oximetry 95 94 L 97 Intake & Output 10/07/17 10/08/17 10/08/17 18:59 06:59 18:59 Intake Total 480 / 480 120 / 120 Output Total 450 / 450 Balance 30 / 30 120 / 120 Weight 86 kg Intake: IV 0 / 0 120 / 120 Rocephin Inj 2,000 MG In NS Inj 0 / 0 120 / 120 100 ML @ 200 mls/hr IV.SIG Q12H [facility] Rx#:[id number] Oral 480 / 480 Output: Urine 450 / 450 Other: # Bowel Movements 1 10/01/17 21:03 Blood - Peripheral Aerobic Blood Culture - Final No growth in 5 days 10/01/17 21:03 Blood - Peripheral Anaerobic Blood Culture - Final No growth in 5 days 10/01/17 21:09 Blood - Peripheral Aerobic Blood Culture - Final No growth in 5 days 10/01/17 21:09 Blood - Peripheral Anaerobic Blood Culture - Final No growth in 5 days Lab - Hematology Results 10/07/17 07:05 WBC 6.3 RBC 4.12 L Hgb 11.9 L Hct 35.9 L MCV 87.2 MCH 28.8 MCHC 33.0 RDW 17.2 Plt Count 176 MPV 7.4 Prelim Diff (Auto) Slide review pending Neut % (Auto) 42.3 Lymph % (Auto) 29.1 [place] % (Auto) 15.6 H Eos % (Auto) 12.1 H Baso % (Auto) 0.9 Neut # (Auto) 2.7 Lymph # (Auto) 1.8 [place] # (Auto) 1.0 H Eos # (Auto) 0.8 H Baso # (Auto) 0.1 WBC Differential . Diff Scan Auto diff confirmed Differential Comment . Hematology Comments Lab - Chemistry Results 10/07/17 07:05 Sodium 138 Potassium 4.8 Chloride 105 Carbon Dioxide 20.8 L Anion Gap 12 BUN 30 H Creatinine 1.80 H Estimated GFR 48 L Random Glucose 72 L Calcium 10.0 Imaging: ITS Impressions Chest X-Ray 10/01/17 20:01 CONCLUSION: Negative for acute process Lumbar Spine MRI 10/01/17 21:46 CONCLUSION: 1. Stable severity to the inflammatory changes at the L4-5 level and severe spinal stenosis, unchanged from prior MRI with and without contrast performed on 09/23/2017. 2. The narrowing of the thecal sac at the L3-4 levels also stable. Physical Exam: GENERAL: Well-nourished well-developed, not in acute distress SKIN: Cool and dry, no generalized rash HEAD: Atraumatic. Normocephalic. No temporal or scalp tenderness. EYES: Pupils equal round and reactive. Scleral icterus. No injection or drainage. No petechia ENT: Nothing abnormal detected NECK: Trachea midline. Supple, nontender, no meningeal signs. CARDIOVASCULAR: HS audible. RESPIRATORY: Clear to auscultation bilaterally. GASTROINTESTINAL: Abdomen soft nontender. MUSCULOSKELETAL: Extremities without clubbing, cyanosis. NEUROLOGICAL: Alert oriented 3. Nonfocal. Psych cooperative IV line sites ok. Assessment and Plan - Plan L5 osteomyelitis Bilateral psoas muscle abscess status post drainage Epidural abscess Strep angionosis bacteremia IV drug abuser Recommendations: Continue ceftriaxone IV while in hospital On discharge Ampicillin 500 mg po every 8 hours for 1 month. [place] patient has received almost 9 weeks of IV antibiotics from 2017. Repeat fluid studies were no growth suspect residual fluid collections are likely sterile at this point and since patient declining surgery will switch him to oral ampicillin for 1 month. He needs to get definitive surgery either with or elsewhere close to family. Will sign off please call back if any change in clinical condition or questions.
--- NOTE | 2017-10-08 13:27 | P.DS ---
Date of admission: 10/01/17 23:00 Primary care physician: UNKNOWN Brief History from admission: 57-year-old male with history of cocaine abuse, hypertension, with recent admission for which patient was treated for osteomyelitis of the L5 vertebra, bilateral psoas muscle abscess, as well as strep bacteremia. Patient discharged AGAINST MEDICAL ADVICE on 10/26, however returns for gradual worsening of low back pain. Patient reports pain is sharp, constant, worse with movement. Denies any chest pain or shortness of breath. Denies nausea or vomiting. Denies any fevers. Patient says he has been using cocaine for treatment of pain. Recent Surgical history which is unable to be entered through the computer: CT-guided removal of fluid for culture as well as disc biopsy L4-5 on 07/31/17 08/14/17 lateral oblique approach for drainage of lumbar retroperitoneal and bilateral psoas muscle abscess [id number] needle aspiration of psoas muscle abscess. DS: Medications - Discharge Medications Prescriptions: hydrocodone-acetaminophen 1 tab PO Q4H PRN #30 tab PRN Reason: Acute Pain DS: Summary Hospital Course: While in hospital, patient was treated for L5 osteomyelitis Epidural abscess Strep bacteremia Continue Rocephin pending final culture report per ID, will discharge patient home on ampicillin 500 mg p.o. every 8 hours 30 days Appreciate input from neurosurgery Per NSG can proceed with surgery for L4-5 laminectomy, interbody fusion with instrumentation on 10/08/2017. However the patient declines to proceed with surgery at this time. 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 Outpatient follow-up - Time Spent with Patient Total time spent providing and/or coordinating discharge services: Less than 30 minutes - Quality: VTE Deep Vein Thrombosis/Pulmonary Embolism Present on Admission: No Exam Vital signs: Vital Signs 10/07/17 16:00 10/07/17 20:00 10/08/17 00:00 Temperature 98.0 F 97.8 F 98.7 F Pulse Rate 61 95 H 94 H Respiratory Rate 18 20 18 Blood Pressure 114/69 146/94 H 128/80 Pulse Oximetry 98 95 94 L 10/08/17 04:00 10/08/17 08:00 10/08/17 12:00 Temperature 97.8 F 98.2 F 98.2 F Pulse Rate 90 94 H 100 H Respiratory Rate 20 16 16 Blood Pressure 110/80 101/74 98/73 L Pulse Oximetry 95 94 L 97 Intake & Output 10/07/17 10/08/17 10/08/17 18:59 06:59 18:59 Intake Total 480 / 480 120 / 120 Output Total 450 / 450 Balance 30 / 30 120 / 120 Weight 86 kg Intake: IV 0 / 0 120 / 120 Rocephin Inj 2,000 MG In NS Inj 0 / 0 120 / 120 100 ML @ 200 mls/hr IV.SIG Q12H [facility] Rx#:[id number] Oral 480 / 480 Output: Urine 450 / 450 Other: # Bowel Movements 1 Narrative: GENERAL: NAD SKIN: Warm and dry. HEAD: Normocephalic. EYES: No scleral icterus. No injection or drainage. NECK: Supple, trachea midline. No JVD or lymphadenopathy. CARDIOVASCULAR: Regular rate and rhythm without murmurs, gallops, or rubs. RESPIRATORY: Breath sounds equal bilaterally. No accessory muscle use. GASTROINTESTINAL: Abdomen soft, non-tender, nondistended. MUSCULOSKELETAL: No cyanosis, or edema. BACK: Nontender without obvious deformity. No CVA tenderness. Results Procedures completed during hospitalization: None - Impressions ITS Impressions Chest X-Ray 10/01/17 20:01 CONCLUSION: Negative for acute process Lumbar Spine MRI 10/01/17 21:46 CONCLUSION: 1. Stable severity to the inflammatory changes at the L4-5 level and severe spinal stenosis, unchanged from prior MRI with and without contrast performed on 09/23/2017. 2. The narrowing of the thecal sac at the L3-4 levels also stable. Discharge Plan - Discharge Disposition Patient Disposition: 01 Discharge Home - Discharge Condition Condition: Fair - Discharge Order Discharge Orders: Discharge Order (Routine); Ordered 10/08/17 Ordered By: Constantine Bartholomew - Physicians Team Primary Care Provider: UNKNOWN, Attending Provider: Constantine Bartholomew Other Providers: Latricia Goldstein MD ; Guero Felipe MD
== END 2017-10-08 17:33 | disposition home or self-care (01) ==
LOC: NEPE 15:44 → NEDA 23:00 → NEPFCDU 10-02 00:20 → N04 10-03 00:29
PROVIDERS: ADMIT Hospitalist; ATTEND Hospitalist